=== PATIENT | male | born 1940 | race African-American/Black ===

== ENCOUNTER 2016-08-14 02:31 | Emergency (ER) | payer MEDICARE, MEDICAID ==
[~2016-08-14] VITALS: Ht 188 cm; Wt 95.3 kg
[~2016-08-14 02:31] MED LIST: ADVAIR 250-501 EACH INH; ADVAIR HFA 45-212 GM INH; ALBUTEROL; ALBUTEROL SULF8.5 GM INH; ASPIRIN EC325 MG ORAL; AZITHROMYCIN250 MG ORAL; CLOTRIMAZOLE15 GM TOPIC; FUROSEMIDE20 M1 ORAL; LEVAQUIN500 MG ORAL; LEVOFLOXACIN500 MG ORAL; MEDROL DOSEPAK4 MG ORAL; METHADONE HCL10 MG PO; MULTI-DAY VITA1 EAC1 ORAL; NAPROXEN500 M2 ORAL; NKM; NORVASC2.5 MG ORAL; OXYCODONE HCL5 M2 ORAL; POTASSIUM CHLO10 ME3 ORAL; POTASSIUM CHLO20 ME2 ORAL; PREDNISONE20 MG ORAL; PREDNISONE50 MG ORAL; PREDNISONE50 MG PO; PROAIR HFA8.5 GM INH; PROMETHAZINE-C118 M1 ORAL; SOLU-MEDRO40 MG/1 M1 IJ; SPIRIVA18 MCG INH; SYMBICORT 16010.2 G1 IH; TRAMADOL HCL50 MG ORAL; UNOBMED; VITAMIN B COMP1 EAC7 PO; ZITHROMAX250 MG ORAL
[2016-08-14 02:45] VITALS: BP 147/74
[2016-08-14] MEDS ORDERED: NKM (02:48)
[2016-08-14] MEDS ORDERED: Albuterol ud Inhalation HHN ONE (03:15)
--- NOTE | 2016-08-14 03:16 | Emergency Room Report ---
History of Present Illness General Chief Complaint: Chest Pain Source: Patient Present Illness HPI This is a 76-year-old male with history of chronic pain, COPD and cocaine abuse. He presents with chief complaint of chest pain his been ongoing for many weeks. He said he been to multiple hospital and no one can figure out why he is hurting. He is taking [place]. Denies any new drug use. Denies any fever chills denies any nausea vomiting. No coughing congestion. Nothing made it better. Nothing made it worse. Pain is 10 out of 10. Allergies: Coded Allergies: TETRACYCLINE (Verified Allergy, Unknown, 01/07/11) Patient History Past Medical History: see triage record, old chart reviewed, COPD Past Surgical History: other Pertinent Family History: none Social History: Reports: drug use, smoking Immunizations: other Reviewed Nursing Documentation: PMH: Agreed, PSxH: Agreed Nursing Documentation-PMH Hx Cardiac Problems: Yes - chf Hx Hypertension: Yes Hx Asthma: Yes Hx COPD: Yes Hx Cancer: No Hx Gastrointestinal Problems: Yes Hx Neurological Problems: Yes Hx Cerebrovascular Accident: Yes Hx Dizziness: Yes Hx Headaches: Yes Hx Weakness: Yes Hx Fatigue: Yes Review of Systems Eye: Denies: blurred vision, eye pain ENT: Denies: ear pain, nose congestion, throat swelling Respiratory: Denies: cough, shortness of breath Cardiovascular: Reports: chest pain, Denies: palpitations Gastrointestinal: Denies: abdominal pain, diarrhea, nausea, vomiting Musculoskeletal: Denies: back pain, joint pain Skin: Denies: rash Neurological: Denies: headache, numbness Endocrine: Denies: increased thirst, increased urine Hematologic/Lymphatic: Denies: easy bruising All Other Systems: negative except mentioned in HPI Physical Exam Vital Signs Date Time Temp Pulse Resp B/P Pulse Ox O2 Delivery O2 Flow Rate FiO2 08/14/16 02:42 98.1 92 17 147/74 97 Room Air vitals normal Sp02 EP Interpretation: reviewed, normal General Appearance: well appearing, no apparent distress, alert Head: normocephalic, atraumatic Eyes: bilateral eye EOMI, bilateral eye PERRL ENT: hearing grossly normal, normal pharynx Neck: full range of motion, supple, no meningismus Respiratory: lungs clear, normal breath sounds, other - Diffuse tenderness with palpation. Cardiovascular #1: regular rate, rhythm, no murmur Gastrointestinal: normal bowel sounds, non tender, no mass, no organomegaly, no bruit, non-distended Musculoskeletal: back normal, gait/station normal, normal range of motion Psychiatric: mood/affect normal Skin: warm/dry Medical Decision Making Diagnostic Impression: Primary Impression: Chest pain Qualified Codes: R07.9 - Chest pain, unspecified Additional Impressions: COPD exacerbation Anemia Qualified Codes: D64.9 - Anemia, unspecified History of cocaine abuse ER Course Patient presents with exacerbation of chronic pain. He has an opioid dependence. His been to multiple hospital for different pain complaint. He is anemic. You would need further workup as an outpatient with colonoscopy to rule out any neoplastic process. May need CT of his chest. He gets oxycodone 30 mg, #90 monthly. Last refill was getting July [address] Giovanny Wright. He is comfortable here. No evidence of rest or distress. No evidence of wheezing. We'll discharge home. Lab Results Impression labs with anemia. EKG Diagnostic Results Rate: normal Rhythm: NSR ST Segments: no acute changes Rhythm Strip Diag. Results EP Interpretation: yes Rate: 80 Rhythm: NSR, no PVC's, no ectopy Chest X-Ray Diagnostic Results EP Interpretation: Yes Findings: no consolidation, no effusion, no pneumothorax, no acute cardiopulmonary disease, other - copd Number of Views: 1 Last Vital Signs Date Time Temp Pulse Resp B/P Pulse Ox O2 Delivery O2 Flow Rate FiO2 08/14/16 02:45 98.4 89 17 147/74 99 Room Air Status: improved Disposition: HOME, SELF-CARE Condition: Stable Patient Instructions: Nonspecific Chest Pain Additional Instructions: Followup with your DrWes in 2-3 days. Return if symptom worsen. MIRYAM QUINTERO M.D. Aug 14, 2016 03:16
[2016-08-14 03:44] LABS: BASOPHILS % (AUTO) 0.8 % (0.0-2.0); EOSINOPHILS % (AUTO) 1.5 % (0.0-3.0); LYMPHOCYTES % (AUTO) 9.9 % (20.0-45.0); MEAN CORPUSCULAR HEMOGLOBIN 31.6 PG (27.0-31.0); MEAN CORPUSCULAR HGB CONC 34.4 G/DL (32.0-36.0); MEAN CORPUSCULAR VOLUME 92 FL (80-99); MEAN PLATELET VOLUME 6.4 FL (6.5-10.1); MONOCYTES % (AUTO) 5.6 % (1.0-10.0); NEUTROPHILS % (AUTO) 82.2 % (45.0-75.0); PLATELET COUNT 113 K/UL (150-450); RED BLOOD COUNT 2.52 M/UL (4.70-6.10); WHITE BLOOD COUNT 9.4 K/UL (4.8-10.8)
[2016-08-14 03:49] LABS: APPEARANCE,URINE CLEAR; KETONES,URINE NEGATIVE (NEGATIVE); LEUKOCYTE ESTERASE ,URINE NEGATIVE (NEGATIVE); NITRITE,URINE NEGATIVE (NEGATIVE); PH,URINE 8 (4.5-8.0); UROBILINOGEN,URINE NORMAL MG/DL (0.0-1.0)
[2016-08-14 03:51] LABS: PROTEIN,URINE NEGATIVE (NEGATIVE)
[2016-08-14 03:59] LABS: ANION GAP 10 (5-15); CALCIUM 7.8 mg/dL (8.6-10.2); CARBON DIOXIDE 31 mEQ/L (20-30); CHLORIDE 92 mEQ/L (98-107); CREATININE 0.7 mg/dL (0.7-1.2); HEMOLYSIS 5; POTASSIUM 3.3 mEQ/L (3.4-4.9); SODIUM 133 mEQ/L (135-145)
[2016-08-14 04:04] LABS: RBC,URINE 0 /HPF (0 - 0); SQUAMOUS EPITHELIAL CELL,UR FEW /LPF (NONE/OCC); WBC,URINE 0 /HPF (0 - 0)
[2016-08-14 04:35] LABS: TROPONIN I < 0.30 ng/mL (<=0.30)
[2016-08-14 04:57] VITALS: BP 124/57
--- NOTE | 2016-08-14 13:48 | Diagnostic Imaging Report ---
Indication: SOB, chest pain Technique: One view of the chest Comparison: 03/18/2016 Findings: Lungs and pleural spaces are clear. Heart size is normal. No significant change Impression: No acute process
--- NOTE | 2016-08-30 13:47 | Cardiology Report ---
APPROVED REPORT EKG Measurement Heart [id number] Normal sinus rhythm Septal infarct, age undetermined Abnormal ECG
== END 2016-08-14 04:57 | disposition home or self-care (01) ==
LOC: EMR 02:40
DX: R07.9 Chest pain, unspecified (principal); J44.1 Chronic obstructive pulmonary disease with (acute) exacerbation; D64.9 Anemia, unspecified; F14.10 Cocaine abuse, uncomplicated
CPT/HCPCS: 36415; 71010; 80048; 80300; 81001; 83880; 84484; 85025; 93005; 94640; 94664; 99283

== ENCOUNTER 2016-11-23 19:04 | Inpatient (IN) | payer MEDICARE, MEDICAID ==
[~2016-11-23] VITALS: Ht 182.9 cm; Wt 81.6 kg
--- NOTE | 2016-11-23 18:56 | Emergency Room Report ---
History of Present Illness General Source: Patient, Medical Record, EMS Present Illness HPI 76YOM BIBEMS from home with progressive chest pain, SOB, and "congestion I cant cough up." denies abd pain, nausea/vomiting, diarrhea, fever/chills. Per EMS, desat to 90-92% on RA at home. Placed on supplemental O2 NC with improvement to 100%. EMR indicates multiple visits/admissions for chest pain/SOB over the years. History of cocaine abuse, narcotic dependence, ?CHF,COPD not on home O2 Allergies: Coded Allergies: TETRACYCLINE (Verified Allergy, Unknown, 01/07/11) Patient History Past Medical History: COPD, other - see HPI Past Surgical History: none Pertinent Family History: none Social History: Reports: drug use, smoking Immunizations: UTD Reviewed Nursing Documentation: PMH: Agreed, PSxH: Agreed Review of Systems All Other Systems: negative except mentioned in HPI Physical Exam Sp02 EP Interpretation: reviewed, normal General Appearance: normal inspection, well appearing, no apparent distress, alert, GCS 15, non-toxic Head: normocephalic, atraumatic Eyes: bilateral eye EOMI, bilateral eye PERRL ENT: normal ENT inspection, hearing grossly normal, normal voice Neck: normal inspection, full range of motion, supple, no bony tend Respiratory: normal inspection, lungs clear, normal breath sounds, no respiratory distress, no retraction, no accessory muscle use, no wheezing, speaking full sentences, wheezing Cardiovascular #1: regular rate, rhythm, no edema Gastrointestinal: normal inspection, normal bowel sounds, non tender, soft, no guarding, no hernia Genitourinary: no CVA tenderness Musculoskeletal: normal inspection, back normal, normal range of motion, Heather' s Sign negative Neurologic: normal inspection, alert, oriented x3, responsive, general assistant III-XII nml as tested, motor strength/tone normal, speech normal Psychiatric: normal inspection, judgement/insight normal, mood/affect normal Skin: normal inspection, normal color, no rash Medical Decision Making Medicare Attestation I Christina De MD hereby attest that the medical record entry for date of service, 06/17/16 accurately reflects signatures/notations that I made in my capacity as MD when I treated/diagnosed the above listed Medicare beneficiary. I attest that this information is true, accurate and complete to the best of my knowledge. I understand that any falsification, omission, or concealment of material fact may subject me to administrative, civil, or criminal liability. This patient warrants hospital admission for extreme of age and has a condition that cannot be treated as outpatient. Diagnostic Impression: Primary Impression: SOB (shortness of breath) Additional Impressions: COPD with acute exacerbation Hypoxia ER Course 76YOM with SOB for 1 week history of COPD VSS. Afebrile Wheezing here ?mild COPD exacerbation ECG shows new PACs not seen on previous ECG. Troponin 0. CXR does not show PNA No leuks. H&H stable Improved with duonebs, IV azithro Blood Cx pending Endorsed to Dr Ortega for tele admission at 8pm EKG Diagnostic Results Rate: normal, other - PACs Rhythm: NSR ST Segments: no acute changes Rhythm Strip Diag. Results EP Interpretation: yes Rate: 88 Rhythm: NSR Chest X-Ray Diagnostic Results EP Interpretation: Yes Findings: no consolidation, no effusion, no pneumothorax, no acute cardiopulmonary disease Number of Views: 1 Status: improved Disposition: ADMITTED INPATIENT Condition: Serious CHRISTINA DE M.D. November 23, 2016 18:55
[2016-11-23 18:57] VITALS: BP 145/91
[~2016-11-23 19:04] MED LIST changes: +ALBUTEROL2.5 MG/3 M INH; +ATIVAN0.5 MG ORAL; +Albuterol ud Inhalation HHN ONE; +Albuterol ud Inhalation ONE; +Azithromycin 500 MG in D5W 275 ML IVPB STA; +Azithromycin Inj IV ONE; +Ipratropium 0.02% Inh Soln 2.5ml UD HHN ONE; +Ipratropium 0.02% Inh Soln 2.5ml UD ONE
[2016-11-23 19:10] VITALS: BP 129/95
[2016-11-23 19:50] LABS: EOSINOPHILS % (AUTO) 5.1 % (0.0-3.0); LYMPHOCYTES % (AUTO) 31.6 % (20.0-45.0); MEAN CORPUSCULAR HEMOGLOBIN 29.9 PG (27.0-31.0); MEAN CORPUSCULAR HGB CONC 32.5 G/DL (32.0-36.0); MEAN CORPUSCULAR VOLUME 92 FL (80-99); MEAN PLATELET VOLUME 6.2 FL (6.5-10.1); MONOCYTES % (AUTO) 9.7 % (1.0-10.0); NEUTROPHILS % (AUTO) 52.6 % (45.0-75.0); PLATELET COUNT 168 K/UL (150-450); RED BLOOD COUNT 4.86 M/UL (4.70-6.10); WHITE BLOOD COUNT 7.4 K/UL (4.8-10.8)
[2016-11-23 20:00] VITALS: BP 133/69
[2016-11-23 20:14] LABS: TROPONIN I < 0.30 ng/mL (<=0.30)
[2016-11-23 20:18] LABS: ALANINE AMINOTRANSFERASE 21 U/L (3-41); ALBUMIN/GLOBULIN RATIO 1.3 (1.0-2.7); ANION GAP 12 (5-15); ASPARTATE AMINO TRANSFERASE 34 U/L (5-40); CALCIUM 9.2 mg/dL (8.6-10.2); CARBON DIOXIDE 35 mEQ/L (20-30); CHLORIDE 98 mEQ/L (98-107); CREATININE 0.9 mg/dL (0.7-1.2); HEMOLYSIS 5; SODIUM 145 mEQ/L (135-145); TOTAL PROTEIN 7.2 g/dL (6.6-8.7)
[2016-11-23 20:29] LABS: CKMB 1.8 ng/mL (< 6.7)
[2016-11-23 22:00] VITALS: BP 142/84
[2016-11-23] MEDS ORDERED: Morphine Sulfate 2mg/ml Inj IVP PRN (22:15)
[2016-11-23] MEDS ORDERED: Nitroglycerin Subl 0.4mg tab (Bottle Of 25) SL PRN (22:15)
[2016-11-23] MEDS ORDERED: LORazepam Inj 2mg/ml 1ml IV PRN (22:15)
[2016-11-23] MEDS ORDERED: Ketorolac 30mg Inj IV PRN (22:15)
[2016-11-23] MEDS ORDERED: DuoNeb 0.5-3(2.5)mg/3ml neb HHN PRN (22:15)
[2016-11-23] MEDS ORDERED: Promethazine/Codeine 5ml UD ORAL PRN (22:15)
[2016-11-24] VITALS: BP 122/60
[2016-11-24] MEDS: Solu-MEDROL 125mg Inj IV SCH ×4 (00:12→20:29)
[2016-11-24 04:00] VITALS: BP 156/88
[2016-11-24] MEDS: Piperacillin/Tazobactam 2.25 GM in D5W 55 ML IV SCH ×3 (07:12→22:07)
[2016-11-24 08:00] VITALS: BP 161/84
[2016-11-24] MEDS: Theophylline ER 100mg ORAL SCH ×2 (08:57→20:28)
[2016-11-24] MEDS: Heparin 5000 units/ml inj SUBQ SCH ×2 (09:07→20:33)
[2016-11-24 12:00] VITALS: BP 140/91
[2016-11-24] MEDS ORDERED: Milk of Magnesia 30ml Ud ORAL PRN (13:45)
[2016-11-24] MEDS: Milk of Magnesia 30ml Ud ORAL PRN ×2 (14:12→18:35)
[2016-11-24] MEDS: DuoNeb 0.5-3(2.5)mg/3ml neb HHN SCH ×4 (15:00→22:34)
[2016-11-24 16:00] VITALS: BP 162/78
--- NOTE | 2016-11-24 16:17 | History and Physical ---
History of Present Illness General Date patient seen: November 24, 2016 Reason for Hospitalization: Upper Respiratory Illness Present Illness HPI 76 year old male with hx of COPD, ETOH and other street drug abuse presented from home with CC of , SOB, and "congestion I cant cough up." denies fever/ chills. Per EMS, desaturating to 90-92% on RA at home. Placed on supplemental O2 NC with improvement to 100%. Pt admitted for exacerbation of COPD Allergies: Coded Allergies: TETRACYCLINE (Verified Allergy, Unknown, 01/07/11) Medication History Scheduled Amlodipine Besylate (Norvasc), 2.5 MG ORAL DAILY Budesonide/Formoterol Fumarate (Symbicort 160-4.5 Mcg Inhaler), 1 PUFF IH EVERY 12 HOURS Fluticasone/Salmeterol (Advair 250-50 Diskus), 1 PUFF INH BID, (Reported) Lorazepam* (Ativan*), Unknown Dose ORAL THREE TIMES A DAY, (Reported) Scheduled PRN Albuterol Sulfate* (Albuterol Sulfate Mdi*), 2 PUFF INH Q4H PRN for For Cough Albuterol Sulfate* (Albuterol Sulfate Hhn*), 3 ML INH Q4H PRN for Shortness of Breath, (Reported) Oxycodone Hcl* (Oxycodone Hcl*), 30 MG ORAL Q4H PRN for For Pain, (Reported) Patient History Healthcare decision maker Resuscitation status Full Code Advanced Directive on File Past Medical/Surgical History Past Medical/Surgical History: (1) History of CVA (cerebrovascular accident) (2) Narcotic dependence (3) Poor compliance (4) History of cocaine abuse (5) Peripheral neuropathy Review of Systems All Other Systems: negative except mentioned in HPI Physical Exam General Appearance: WD/WN Lines, tubes and drains: peripheral HEENT: normocephalic, atraumatic Neck: non-tender, normal alignment Respiratory/Chest: chest wall non-tender, lungs clear Breasts: no masses Cardiovascular/Chest: normal peripheral pulses, normal rate Abdomen: normal bowel sounds, non tender Genitourinary/Rectal: normal genital exam Extremities: normal range of motion Skin Exam: normal pigmentation Neurologic: communications operator II-XII grossly normal Last 24 Hour Vital Signs Date Time Temp Pulse Resp B/P Pulse Ox O2 Delivery O2 Flow Rate FiO2 11/24/16 16:04 88 17 98 Nasal Cannula 2.0 28 11/24/16 15:59 99 14 97 Nasal Cannula 2.0 28 11/24/16 12:00 97.2 98 20 140/91 94 Room Air 11/24/16 09:14 99 161/84 11/24/16 08:03 99 13 98 Nasal Cannula 2.0 28 11/24/16 08:00 97.5 71 19 161/84 99 Room Air 11/24/16 08:00 72 11/24/16 04:00 80 11/24/16 04:00 97.0 76 16 156/88 98 Nasal Cannula 2.0 11/24/16 00:00 71 11/24/16 00:00 97.5 79 18 122/60 95 Nasal Cannula 2.0 11/23/16 22:00 97.9 85 18 142/84 92 Nasal Cannula 2.0 11/23/16 21:39 84 18 113/59 98 Nasal Cannula 2.0 84 11/23/16 20:00 93 21 133/69 95 Nasal Cannula 2.0 11/23/16 19:15 92 18 98 Nasal Cannula 2.0 28 11/23/16 19:10 91 25 129/95 100 Nasal Cannula 2.0 11/23/16 19:00 98 14 Nasal Cannula 2.0 28 11/23/16 19:00 98 14 94 Nasal Cannula 2.0 28 11/23/16 18:57 96 20 Nasal Cannula 2.0 11/23/16 18:57 97.1 20 145/91 93 Nasal Cannula 2.0 11/23/16 18:52 96 20 145/91 93 Nasal Cannula 2.0 Intake and Output 11/23/16 11/24/16 19:00 07:00 Intake Total 120 ml Balance 120 ml Intake Oral 120 ml Laboratory Tests Test 11/23/16 19:30 11/24/16 09:00 White Blood Count 7.4 K/UL (4.8-10.8) Red Blood Count 4.86 M/UL (4.70-6.10) Hemoglobin 14.5 G/DL (14.2-18.0) Hematocrit 44.7 % (42.0-52.0) Mean Corpuscular Volume 92 FL (80-99) Mean Corpuscular Hemoglobin 29.9 PG (27.0-31.0) Mean Corpuscular Hemoglobin Concent 32.5 G/DL (32.0-36.0) Red Cell Distribution Width 15.0 % (11.6-14.8) H Platelet Count 168 K/UL (150-450) Mean Platelet Volume 6.2 FL (6.5-10.1) L Neutrophils (%) (Auto) 52.6 % (45.0-75.0) Lymphocytes (%) (Auto) 31.6 % (20.0-45.0) Monocytes (%) (Auto) 9.7 % (1.0-10.0) Eosinophils (%) (Auto) 5.1 % (0.0-3.0) H Basophils (%) (Auto) 1.0 % (0.0-2.0) Sodium Level 145 mEQ/L (135-145) Potassium Level 4.0 mEQ/L (3.4-4.9) Chloride Level 98 mEQ/L (98-107) Carbon Dioxide Level 35 mEQ/L (20-30) H Anion Gap 12 (5-15) Blood Urea Nitrogen 13 mg/dL (7-23) Creatinine 0.9 mg/dL (0.7-1.2) Estimat Glomerular Filtration Rate mL/min (>60) Glucose Level 82 mg/dL (74-106) Calcium Level 9.2 mg/dL (8.6-10.2) Total Bilirubin 0.6 mg/dL (0.0-1.2) Aspartate Amino Transf (AST/SGOT) 34 U/L (5-40) Alanine Aminotransferase (ALT/SGPT) 21 U/L (3-41) Alkaline Phosphatase 46 U/L (40-129) Total Creatine Kinase 47 U/L (38-174) Creatine Kinase MB 1.8 ng/mL (< 6.7) Creatine Kinase MB Relative Index 3.8 Troponin I < 0.30 ng/mL (<=0.30) Pro-B-Type Natriuretic Peptide 57 pg/mL (0-450) Total Protein 7.2 g/dL (6.6-8.7) Albumin 4.1 g/dL (3.5-5.2) Globulin 3.1 g/dL Albumin/Globulin Ratio 1.3 (1.0-2.7) Urine Opiates Screen Negative (NEGATIVE) Urine Barbiturates Screen Negative (NEGATIVE) Phencyclidine (PCP) Screen Negative (NEGATIVE) Urine Amphetamines Screen Negative (NEGATIVE) Urine Benzodiazepines Screen Positive (NEGATIVE) H Urine Cocaine Screen Positive (NEGATIVE) H Urine Marijuana (THC) Screen Positive (NEGATIVE) H Height (Feet): 6 Height (Inches): 0.00 Weight (Pounds): 180 Medications Current Medications Medications (Trade) Dose Ordered Sig/[place]guila Route PRN Reason Start Time Stop Time Status Last Admin Dose Admin Albuterol/ Ipratropium (DuoNeb 0.5-3(2.5)mg/3ml) 3 ml Q4HRT HHN 11/24/16 13:37 11/29/16 13:36 11/24/16 15:56 Amlodipine Besylate (Norvasc) 2.5 mg DAILY ORAL 11/24/16 09:00 12/24/16 08:59 11/24/16 09:14 Dextrose (Dextrose 50%) STAT PRN IV Hypoglycemia 11/23/16 22:15 12/23/16 22:14 Heparin Sodium (Porcine) (Heparin 5000 units/ml) 5,000 units EVERY 12 HOURS SUBQ 11/24/16 09:00 12/24/16 08:59 11/24/16 09:07 Ketorolac Tromethamine (Toradol 30mg) 30 mg EVERY 8 HOURS PRN IV moderate pain 4-6 11/23/16 22:15 11/28/16 22:14 Lorazepam (Ativan 2mg/ml 1ml) 0.5 mg Q4H PRN IV For Anxiety 11/23/16 22:15 11/30/16 22:14 Magnesium Hydroxide (Mom) 30 ml HSPRN PRN ORAL Constipation 11/24/16 12:45 12/24/16 12:44 11/24/16 14:12 Magnesium Hydroxide (Mom) 30 ml Q4H PRN ORAL Constipation 11/24/16 13:45 12/24/16 13:44 Methylprednisolone Sodium Succinate (Solu-MEDROL) 60 mg EVERY 12 HOURS IV 11/24/16 21:00 12/24/16 20:59 UNV Morphine Sulfate (Morphine Sulfate) 2 mg Q4H PRN IVP severe pain 7-10 11/23/16 22:15 11/30/16 22:14 Nitroglycerin (Ntg) 0.4 mg Q5M X 3 DOSES PRN SL Prn Chest Pain 11/23/16 22:15 12/23/16 22:14 Ondansetron HCl (Zofran) 4 mg Q6H PRN IVP Nausea & Vomiting 11/23/16 22:15 12/23/16 22:14 Oxycodone HCl (Roxicodone) 30 mg Q4H PRN ORAL For Pain 11/23/16 22:15 11/30/16 22:14 Piperacillin Sod/ Tazobactam Sod/ Dextrose (Zosyn/D5W) 55 ml @ 110 mls/hr EVERY 8 HOURS IV 11/24/16 06:00 11/29/16 05:59 11/24/16 14:03 Promethazine HCl/ Codeine (Phenergan with Codeine) 5 ml Q6H PRN ORAL cough 11/23/16 22:15 12/23/16 22:14 Temazepam (Restoril) 15 mg HSPRN PRN ORAL Insomnia 11/23/16 22:15 11/30/16 22:14 Theophylline 100 mg 100 mg EVERY 12 HOURS ORAL 11/24/16 09:00 12/24/16 08:59 11/24/16 08:57 Assessment/Plan Problem List: (1) Acute respiratory failure ICD Codes: J96.00 - Acute respiratory failure, unsp w hypoxia or hypercapnia SNOMED: 58643919 Qualifiers: Qualified Codes: J96.02 - Acute respiratory failure with hypercapnia (2) COPD with acute exacerbation ICD Codes: J44.1 - Chronic obstructive pulmonary disease with acute exacerbation SNOMED: 740871133 (3) Peripheral neuropathy ICD Codes: G62.9 - Polyneuropathy, unspecified SNOMED: 15893343 (4) History of cocaine abuse ICD Codes: F14.10 - Cocaine abuse, uncomplicated SNOMED: 047240404 (5) Hypertension ICD Codes: I10 - Hypertension SNOMED: 15879173 Assessment/Plan Respiratory treatment IV steroids check sputum IV abx check sputum 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
[2016-11-24 20:00] VITALS: BP 147/99
[2016-11-24] MEDS: oxyCODONE 5mg IR tab ORAL PRN (20:34)
[2016-11-25] VITALS: BP 157/99
[2016-11-25] MEDS: DuoNeb 0.5-3(2.5)mg/3ml neb HHN SCH ×5 (02:56→20:03)
[2016-11-25 04:00] VITALS: BP 129/69
[2016-11-25] MEDS: Piperacillin/Tazobactam 2.25 GM in D5W 55 ML IV SCH ×3 (06:29→22:04)
[2016-11-25 08:00] VITALS: BP 159/75
[2016-11-25] MEDS: Theophylline ER 100mg ORAL SCH ×2 (08:43→21:04)
[2016-11-25] MEDS: Solu-MEDROL 125mg Inj IV SCH (08:43)
[2016-11-25] MEDS: Heparin 5000 units/ml inj SUBQ SCH ×2 (08:50→21:06)
[2016-11-25] MEDS: oxyCODONE 5mg IR tab ORAL PRN (09:58)
[2016-11-25 12:00] VITALS: BP 144/72
--- NOTE | 2016-11-25 15:29 | Pulmonology Progress Note ---
Assessment/Plan Problems: (1) Acute respiratory failure (2) COPD with acute exacerbation (3) Peripheral neuropathy (4) History of cocaine abuse (5) Hypertension Assessment/Plan improving respiratory treatment Iv steroids check sputum laxatives Subjective ROS Limited/Unobtainable: No Constitutional: Reports: no symptoms HEENT: Repors: no symptoms Respiratory: Reports: no symptoms Allergies: Coded Allergies: TETRACYCLINE (Verified Allergy, Unknown, 01/07/11) Objective Last 24 Hour Vital Signs Date Time Temp Pulse Resp B/P Pulse Ox O2 Delivery O2 Flow Rate FiO2 11/25/16 12:39 87 18 98 Nasal Cannula 2.0 28 11/25/16 12:31 89 14 96 Nasal Cannula 2.0 28 11/25/16 12:00 97.9 88 20 144/72 95 Room Air 11/25/16 08:44 128 160/75 11/25/16 08:00 98.0 99 20 159/75 99 Nasal Cannula 2.0 11/25/16 07:41 86 18 98 Nasal Cannula 2.0 28 11/25/16 07:32 87 14 95 Nasal Cannula 2.0 28 11/25/16 04:00 98.2 94 20 129/69 99 Nasal Cannula 2.0 28 11/25/16 03:10 89 18 98 Nasal Cannula 2.0 28 11/25/16 02:56 94 18 93 Room Air 11/25/16 00:00 98.2 94 18 157/99 98 Nasal Cannula 2.0 28 11/24/16 22:44 88 18 98 Nasal Cannula 2.0 28 11/24/16 22:43 28 11/24/16 22:35 92 18 93 Room Air 11/24/16 20:00 98.2 89 20 147/99 98 Nasal Cannula 3.0 32 11/24/16 20:00 90 11/24/16 19:01 90 18 98 Nasal Cannula 3.0 32 11/24/16 18:55 32 11/24/16 18:49 91 16 92 Room Air 21 11/24/16 16:17 2.0 28 11/24/16 16:04 88 17 98 Nasal Cannula 2.0 28 11/24/16 16:00 99 19 162/78 95 Room Air 11/24/16 16:00 96 11/24/16 15:59 99 14 97 Nasal Cannula 2.0 28 Intake and Output 11/24/16 11/25/16 19:00 07:00 Intake Total 55 ml 165 ml Output Total 650 ml Balance 55 ml -485 ml IV Total 55 ml 165 ml Output Urine Total 650 ml # Voids 2 General Appearance: WD/WN HEENT: normocephalic, atraumatic Respiratory/Chest: chest wall non-tender, normal breath sounds Cardiovascular: normal peripheral pulses, normal rate Abdomen: normal bowel sounds, no organomegaly Extremities: no clubbing Skin: no rash 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 Lymphatic: no neck adenopathy Musculoskeletal: normal muscle bulk Microbiology Date/Time Source Procedure Growth Status 11/23/16 19:10 Blood Blood Culture - Preliminary Resulted 11/23/16 19:00 Blood Blood Culture - Preliminary Resulted Current Medications Medications (Trade) Dose Ordered Sig/[place] Route PRN Reason Start Time Stop Time Status Last Admin Dose Admin Albuterol/ Ipratropium (DuoNeb 0.5-3(2.5)mg/3ml) 3 ml Q4HRT HHN 11/24/16 13:37 11/29/16 13:36 11/25/16 15:19 Amlodipine Besylate (Norvasc) 2.5 mg DAILY ORAL 11/24/16 09:00 12/24/16 08:59 11/25/16 08:44 Dextrose (Dextrose 50%) STAT PRN IV Hypoglycemia 11/23/16 22:15 12/23/16 22:14 Docusate Sodium (Colace) 100 mg THREE TIMES A DAY ORAL 11/25/16 18:00 12/25/16 17:59 Heparin Sodium (Porcine) (Heparin 5000 units/ml) 5,000 units EVERY 12 HOURS SUBQ 11/24/16 09:00 12/24/16 08:59 11/25/16 08:50 Ketorolac Tromethamine (Toradol 30mg) 30 mg EVERY 8 HOURS PRN IV moderate pain 4-6 11/23/16 22:15 11/28/16 22:14 Lactulose (Cephulac) 30 gm THREE TIMES A DAY ORAL 11/25/16 18:00 12/25/16 17:59 Lorazepam (Ativan 2mg/ml 1ml) 0.5 mg Q4H PRN IV For Anxiety 11/23/16 22:15 11/30/16 22:14 Magnesium Hydroxide (Mom) 30 ml HSPRN PRN ORAL Constipation 11/24/16 12:45 12/24/16 12:44 11/24/16 18:35 Magnesium Hydroxide (Mom) 30 ml Q4H PRN ORAL Constipation 11/24/16 13:45 12/24/16 13:44 11/25/16 09:57 Methylprednisolone Sodium Succinate (Solu-MEDROL) 60 mg EVERY 12 HOURS IV 11/24/16 21:00 12/24/16 20:59 11/25/16 08:43 Mineral Oil (Fleet's Mineral Oil Enema) 133 ml EVERY OTHER DAY RECTAL 11/27/16 09:00 12/27/16 08:59 Morphine Sulfate (Morphine Sulfate) 2 mg Q4H PRN IVP severe pain 7-10 11/23/16 22:15 11/30/16 22:14 Nitroglycerin (Ntg) 0.4 mg Q5M X 3 DOSES PRN SL Prn Chest Pain 11/23/16 22:15 12/23/16 22:14 Ondansetron HCl (Zofran) 4 mg Q6H PRN IVP Nausea & Vomiting 11/23/16 22:15 12/23/16 22:14 Oxycodone HCl (Roxicodone) 30 mg Q4H PRN ORAL For Pain 11/23/16 22:15 11/30/16 22:14 11/25/16 09:58 Piperacillin Sod/ Tazobactam Sod/ Dextrose (Zosyn/D5W) 55 ml @ 110 mls/hr EVERY 8 HOURS IV 11/24/16 06:00 11/29/16 05:59 11/25/16 13:30 Polyethylene Glycol (Miralax) 17 gm BEDTIME ORAL 11/25/16 21:00 12/25/16 20:59 Promethazine HCl/ Codeine (Phenergan with Codeine) 5 ml Q6H PRN ORAL cough 11/23/16 22:15 12/23/16 22:14 Sennosides (Senokot) 8.6 mg DAILY ORAL 11/26/16 09:00 12/26/16 08:59 Temazepam (Restoril) 15 mg HSPRN PRN ORAL Insomnia 11/23/16 22:15 11/30/16 22:14 Theophylline 100 mg 100 mg EVERY 12 HOURS ORAL 11/24/16 09:00 12/24/16 08:59 11/25/16 08:43 KITTY HERNANDEZ November 25, 2016 15:29
[2016-11-25 16:00] VITALS: BP 141/77
[2016-11-25] MEDS: Docusate 100mg cap ORAL SCH (17:16)
[2016-11-25] MEDS: Lactulose 20gm/30ml UDC ORAL SCH (17:16)
[2016-11-25 20:46] VITALS: BP 146/86
[2016-11-25] MEDS: Miralax 17gm pkt ORAL SCH (21:05)
[2016-11-26] MEDS: DuoNeb 0.5-3(2.5)mg/3ml neb HHN SCH ×7 (00:21→23:50)
[2016-11-26 00:24] VITALS: BP 126/74
--- NOTE | 2016-11-26 00:49 | Consultation ---
DATE OF CONSULTATION: HISTORY OF PRESENT ILLNESS: The patient is a 76-year-old male with a history of cocaine abuse and alcohol abuse, brought in by paramedics for chest pain and shortness of breath. During the evaluation, the patient was denying any depressive, manic, or psychotic symptoms. However, at some point, he stated that he has depression. He was reluctant to see a psychiatrist. He denied any suicidal or homicidal ideations. He denies using any cocaine or alcohol currently. The patient's urine toxicology is positive for marijuana, cocaine, and benzodiazepine. Of note, during the evaluation, patient endorses . PAST PSYCHIATRIC HISTORY: He has a history of depression and anxiety in the past. Denies any psychiatric hospitalizations. Denies any suicide attempt in the past. PAST MEDICAL HISTORY: Significant for CVA, peripheral neuropathy/COPD. ALLERGIES: Tetracycline. SUBSTANCE ABUSE HISTORY: Significant for opiates, benzodiazepines, and cocaine dependence. The patient also has a history of poor compliance. SOCIAL HISTORY: The patient is homeless and is on SSRI's. MENTAL STATUS EXAMINATION: The patient is alert and oriented x3. Mood is anxious and irritable. Affect is constricted. Congruent mood. Thought process is concrete. Thought content, no suicidal or homicidal ideation. ASSESSMENT: [place] I Polysubstance dependence. Mood disorder, not otherwise specified. [place] II Deferred. [place] III As above. [place] IV Low. [place] V 40 PLAN: 1. We will start patient on Klonopin 1 mg by mouth at bedtime. 2. The patient will benefit from a low dose of selective serotonin reuptake inhibitor. 3. The patient does not meet the criteria of hold 5150 or psychiatric hospitalization. 4. We will continue to follow and readjust his medications. Jose Ray JOB#: [id number] CC:
[2016-11-26 04:13] VITALS: BP 137/90
[2016-11-26] MEDS: Piperacillin/Tazobactam 2.25 GM in D5W 55 ML IV SCH ×3 (05:39→22:55)
[2016-11-26 07:50] LABS: BASOPHILS % (AUTO) 0.3 % (0.0-2.0); LYMPHOCYTES % (AUTO) 16.7 % (20.0-45.0); MEAN CORPUSCULAR HEMOGLOBIN 28.5 PG (27.0-31.0); MEAN CORPUSCULAR HGB CONC 31.1 G/DL (32.0-36.0); MEAN CORPUSCULAR VOLUME 92 FL (80-99); MEAN PLATELET VOLUME 7.7 FL (6.5-10.1); MONOCYTES % (AUTO) 10.5 % (1.0-10.0); NEUTROPHILS % (AUTO) 72.6 % (45.0-75.0); PLATELET COUNT 152 K/UL (150-450); RED CELL DISTRIBUTION WIDTH 15.7 % (11.6-14.8); WHITE BLOOD COUNT 7.7 K/UL (4.8-10.8)
[2016-11-26 08:00] VITALS: BP 125/69
[2016-11-26 08:07] LABS: ALANINE AMINOTRANSFERASE 10 U/L (3-41); ALBUMIN/GLOBULIN RATIO 1.5 (1.0-2.7); ANION GAP 10 (5-15); ASPARTATE AMINO TRANSFERASE 13 U/L (5-40); CALCIUM 8.2 mg/dL (8.6-10.2); CARBON DIOXIDE 32 mEQ/L (20-30); CHLORIDE 99 mEQ/L (98-107); CREATININE 0.8 mg/dL (0.7-1.2); HEMOLYSIS 5; SODIUM 141 mEQ/L (135-145); TOTAL PROTEIN 5.8 g/dL (6.6-8.7)
[2016-11-26] MEDS: Lactulose 20gm/30ml UDC ORAL SCH ×3 (08:40→17:49)
[2016-11-26] MEDS: Solu-MEDROL 125mg Inj IV SCH (08:40)
[2016-11-26] MEDS: Docusate 100mg cap ORAL SCH ×3 (08:41→17:50)
[2016-11-26] MEDS: Theophylline ER 100mg ORAL SCH ×2 (08:41→21:34)
[2016-11-26] MEDS: Heparin 5000 units/ml inj SUBQ SCH ×2 (08:42→21:37)
[2016-11-26] MEDS ORDERED: oxyCODONE 15mg IR tab ORAL PRN (09:30)
[2016-11-26 11:56] VITALS: BP 139/79
--- NOTE | 2016-11-26 12:33 | Consultation ---
Consult Note Consult Note ID Dic# [id number] YONATAN KIRK M.D. November 26, 2016 12:33
--- NOTE | 2016-11-26 13:10 | Pulmonology Progress Note ---
Assessment/Plan Problems: (1) Acute respiratory failure (2) COPD with acute exacerbation (3) Peripheral neuropathy (4) History of cocaine abuse (5) Hypertension Assessment/Plan improving respiratory treatment taper Iv steroids check sputum, pending laxatives refused to go to half-way, wants to go back to his car Subjective ROS Limited/Unobtainable: No Constitutional: Reports: no symptoms Allergies: Coded Allergies: TETRACYCLINE (Verified Allergy, Unknown, 01/07/11) Objective Last 24 Hour Vital Signs Date Time Temp Pulse Resp B/P Pulse Ox O2 Delivery O2 Flow Rate FiO2 11/26/16 13:00 83 18 96 Nasal Cannula 2.0 28 11/26/16 11:56 96.8 79 20 139/79 93 Room Air 11/26/16 10:14 83 20 98 Nasal Cannula 2.0 28 11/26/16 10:05 81 18 95 Nasal Cannula 2.0 28 11/26/16 08:41 79 137/90 11/26/16 08:00 80 11/26/16 08:00 97.5 81 21 125/69 94 Room Air 11/26/16 07:18 Nasal Cannula 2.0 28 11/26/16 07:18 95 Nasal Cannula 2.0 28 11/26/16 07:18 Nasal Cannula 11/26/16 07:18 Nasal Cannula 2.0 28 11/26/16 04:13 98.6 79 21 137/90 96 Room Air 11/26/16 04:00 77 11/26/16 03:17 90 20 98 Nasal Cannula 2.0 28 11/26/16 03:16 84 16 96 Nasal Cannula 2.0 28 11/26/16 00:24 98.5 84 21 126/74 98 Room Air 11/26/16 00:00 77 11/25/16 23:45 84 16 98 Nasal Cannula 2.0 28 11/25/16 23:30 80 16 95 Nasal Cannula 2.0 28 11/25/16 22:20 89 11/25/16 20:46 97.3 94 20 146/86 95 Room Air 11/25/16 19:40 86 16 97 Nasal Cannula 2.0 28 11/25/16 19:30 Nasal Cannula 2.0 28 11/25/16 19:30 82 16 Nasal Cannula 2.0 28 11/25/16 19:30 82 16 94 Nasal Cannula 2.0 28 11/25/16 19:30 94 Nasal Cannula 2.0 28 11/25/16 16:00 97.3 79 20 141/77 96 Room Air 11/25/16 15:27 88 14 97 Nasal Cannula 2.0 28 11/25/16 15:20 85 14 95 Nasal Cannula 2.0 28 Intake and Output 11/25/16 11/26/16 19:00 07:00 Intake Total 110 ml 110 ml Output Total 500 ml Balance -390 ml 110 ml IV Total 110 ml 110 ml Output Urine Total 500 ml # Voids 3 2 General Appearance: WD/WN HEENT: normocephalic, atraumatic Respiratory/Chest: chest wall non-tender, lungs clear Cardiovascular: normal peripheral pulses, normal rate Abdomen: normal bowel sounds, soft, non tender Genitourinary: normal external genitalia Extremities: no cyanosis Skin: no rash Neurologic/Psychiatric: endodontics dentist II-XII grossly normal, no motor/sensory deficits Lymphatic: no neck adenopathy Microbiology Date/Time Source Procedure Growth Status 11/23/16 19:10 Blood Blood Culture - Preliminary Staphylococcus Sp Coag Neg Resulted 11/23/16 19:00 Blood Blood Culture - Preliminary Staphylococcus Sp Coag Neg Resulted 11/25/16 18:30 Sputum Gram Stain - Final Resulted 11/25/16 18:30 Sputum Sputum Culture Pending Resulted Laboratory Tests 11/26/16 06:45: White Blood Count 7.7, Red Blood Count 4.10L, Hemoglobin 11.7L, Hematocrit 37.6L , Mean Corpuscular Volume 92, Mean Corpuscular Hemoglobin 28.5, Mean Corpuscular Hemoglobin Concent 31.1L, Red Cell Distribution Width 15.7H, Platelet Count 152, Mean Platelet Volume 7.7, Neutrophils (%) (Auto) 72.6, Lymphocytes (%) (Auto) 16.7L, Monocytes (%) (Auto) 10.5H, Eosinophils (%) (Auto ) 0.0, Basophils (%) (Auto) 0.3, Sodium Level 141, Potassium Level 3.0L, Chloride Level 99, Carbon Dioxide Level 32H, Anion Gap 10, Blood Urea Nitrogen 13, Creatinine 0.8, Estimat Glomerular Filtration Rate , Glucose Level 108H, Calcium Level 8.2L, Total Bilirubin 0.2, Aspartate Amino Transf (AST/SGOT) 13, Alanine Aminotransferase (ALT/SGPT) 10, Alkaline Phosphatase 29L, Pro-B-Type Natriuretic Peptide 387, Total Protein 5.8L, Albumin 3.5, Globulin 2.3, Albumin/ Globulin Ratio 1.5 Current Medications Medications (Trade) Dose Ordered Sig/Aguila Route PRN Reason Start Time Stop Time Status Last Admin Dose Admin Albuterol/ Ipratropium (DuoNeb 0.5-3(2.5)mg/3ml) 3 ml Q4HRT HHN 11/24/16 13:37 11/29/16 13:36 11/26/16 12:59 Amlodipine Besylate (Norvasc) 2.5 mg DAILY ORAL 11/24/16 09:00 12/24/16 08:59 11/26/16 08:41 Azithromycin (Zithromax) 500 mg DAILY ORAL 11/26/16 12:45 12/03/16 12:44 UNV Clonazepam (KlonoPIN) 1 mg BEDTIME ORAL 11/25/16 21:00 12/02/16 20:59 11/25/16 21:05 Dextrose (Dextrose 50%) STAT PRN IV Hypoglycemia 11/23/16 22:15 12/23/16 22:14 Docusate Sodium (Colace) 100 mg THREE TIMES A DAY ORAL 11/25/16 18:00 12/25/16 17:59 11/26/16 13:07 Heparin Sodium (Porcine) (Heparin 5000 units/ml) 5,000 units EVERY 12 HOURS SUBQ 11/24/16 09:00 12/24/16 08:59 11/26/16 08:42 Ketorolac Tromethamine (Toradol 30mg) 30 mg EVERY 8 HOURS PRN IV moderate pain 4-6 11/23/16 22:15 11/28/16 22:14 Lactulose (Cephulac) 30 gm THREE TIMES A DAY ORAL 11/25/16 18:00 12/25/16 17:59 11/26/16 13:07 Lorazepam (Ativan 2mg/ml 1ml) 0.5 mg Q4H PRN IV For Anxiety 11/23/16 22:15 11/30/16 22:14 Magnesium Hydroxide (Mom) 30 ml Q4H PRN ORAL Constipation 11/24/16 13:45 12/24/16 13:44 11/25/16 09:57 Methylprednisolone Sodium Succinate (Solu-MEDROL) 60 mg DAILY IV 11/26/16 09:00 12/26/16 08:59 11/26/16 08:40 Mineral Oil (Fleet's Mineral Oil Enema) 133 ml EVERY OTHER DAY RECTAL 11/27/16 09:00 12/27/16 08:59 Morphine Sulfate (Morphine Sulfate) 2 mg Q4H PRN IVP severe pain 7-10 11/23/16 22:15 11/30/16 22:14 Nitroglycerin (Ntg) 0.4 mg Q5M X 3 DOSES PRN SL Prn Chest Pain 11/23/16 22:15 12/23/16 22:14 Ondansetron HCl (Zofran) 4 mg Q6H PRN IVP Nausea & Vomiting 11/23/16 22:15 12/23/16 22:14 Oxycodone HCl (Roxicodone) 30 mg Q4H PRN ORAL severe pain 11/26/16 09:30 11/30/16 23:59 Piperacillin Sod/ Tazobactam Sod/ Dextrose (Zosyn/D5W) 55 ml @ 110 mls/hr EVERY 8 HOURS IV 11/24/16 06:00 11/29/16 05:59 11/26/16 05:39 Polyethylene Glycol (Miralax) 17 gm BEDTIME ORAL 11/25/16 21:00 12/25/16 20:59 11/25/16 21:05 Promethazine HCl/ Codeine (Phenergan with Codeine) 5 ml Q6H PRN ORAL cough 11/23/16 22:15 12/23/16 22:14 Risperidone (RisperDAL) 2 mg BEDTIME ORAL 11/26/16 21:00 12/26/16 20:59 UNV Sennosides (Senokot) 8.6 mg DAILY ORAL 11/26/16 09:00 12/26/16 08:59 11/26/16 08:40 Temazepam (Restoril) 15 mg HSPRN PRN ORAL Insomnia 11/23/16 22:15 11/30/16 22:14 Theophylline 100 mg 100 mg EVERY 12 HOURS ORAL 11/24/16 09:00 12/24/16 08:59 11/26/16 08:41 KITTY HERNANDEZ November 26, 2016 13:10
[2016-11-26] MEDS: Azithromycin 250mg tab ORAL SCH (13:25)
--- NOTE | 2016-11-26 13:35 | Diagnostic Imaging Report ---
Indications: Dyspnea Technique: Portable AP chest Findings: Comparison: None Cardiac silhouette remains normal in size. Pulmonary vasculature remains within normal limits. Inspiratory effort has decreased. Previous bibasal linear densities no longer visualized. Lungs and pleura remain otherwise clear. Mild calcification and elongation of the aortic arch are again noted. IMPRESSION: Resolution versus vascular pulmonary bibasal subsegmental atelectasis versus scarring No evidence of acute cardiopulmonary disease Aortosclerosis and probable chronic hypertensive change, stable
[2016-11-26 15:57] VITALS: BP 146/87
--- NOTE | 2016-11-26 19:51 | Consultation ---
DATE OF CONSULTATION: INFECTIOUS DISEASE CONSULTATION CONSULTING PHYSICIAN: Juan C Baumann M.D. REFERRING PHYSICIAN: Farhan Ortega M.D. REASON FOR CONSULTATION: Evaluation of the patient for positive blood culture and possible need for antibiotics. HISTORY OF PRESENT ILLNESS: The patient is a 76-year-old male with multiple medical problems, who was admitted to this medical center due to the shortness of breath, severe exacerbation. The patient's blood culture two out of three is growing gram positive cocci. Infectious Disease consultation has been requested for further evaluation of the patient and antibiotic management. The patient overall is a poor historian. Much of the information is gathered through the chart and speaking to the staff. PAST MEDICAL HISTORY: 1. Depression. 2. Anxiety. 3. History of cocaine and alcohol abuse. 4. History of CVA. 5. History of neuropathy. MEDICATIONS: Solu-Medrol and Zosyn. ALLERGIES: Tetracycline. SOCIAL HISTORY: As mentioned above. FAMILY HISTORY: The patient is a poor historian. REVIEW OF SYSTEMS: Poor historian. PHYSICAL EXAMINATION: VITAL SIGNS: Temperature 97.4 degrees, blood pressure 115/79, pulse 86, and respiratory rate 18. HEENT: Mild pale conjunctivae. No icterus. NECK: No lymphadenopathy. CHEST: Coarse breathing sounds. HEART: S1 and S2. ABDOMEN: Soft and nontender. EXTREMITIES: No cyanosis. NEUROLOGIC: Awake. LABORATORY DATA: White blood cells 7.3, hemoglobin 11, and platelets 152,000. BUN 13 and creatinine 0.8. ALT, AST, and alkaline phosphatase are unremarkable. Blood cultures, two out of three is growing coagulase-negative Staph. Sputum culture is pending. Chest x-ray final report is pending. ASSESSMENT: The patient is a 76-year-old male with multiple medical problems, who has been admitted to this medical center for shortness of breath, possible chronic obstructive pulmonary disease exacerbation, and possible underlying pneumonia. The patient's blood culture is growing coagulase-negative Staph that appears to be a contaminant and there is no clinical significance at this point. The patient overall is a very poor historian and I was not able to get much detailed information. PLAN: 1. We will continue the patient on Zosyn. We will add Zithromax. Upon discharge, we will switch to Augmentin and Zithromax to complete the course. 2. Monitor CBC. 3. Monitor BMP. 4. Monitor sputum culture. 5. Based on the patient's clinical course and laboratories, we will do further recommendations. Thank you, Dr. Ortega, for allowing me to participate in the care of this patient. I will follow the patient with you during this hospitalization. Juan C Baumann M.D. DR: FADIA JOB#: [id number] CC:
[2016-11-26 20:00] VITALS: BP 165/96
[2016-11-26] MEDS: Miralax 17gm pkt ORAL SCH (21:34)
[2016-11-27] VITALS: BP 110/64
--- NOTE | 2016-11-27 00:01 | Progress Note ---
SUBJECTIVE: Upon evaluation today, the patient is yet very angry and agitated. The patient has stated that he has lied to the doctor and he does not need to be remained in the hospital nor needs to go to a jail. The patient is denying any manic, psychotic, or depressive symptoms. However, he is extremely angry, agitated, and paranoid. He has poor insight and judgment into what is going on. He was reluctant again to meet with me. The patient is a frequent flyer, recently saw him in another hospital, which is [facility] with the similar presentation. He does endorse mild cognitive impairment. MENTAL STATUS EXAMINATION: The patient is alert and oriented times place, time, and situation. Mood is angry. Affect is constricted. Congruent with mood. Thought process is concrete. Thought content is positive for delusions. Insight and judgment are impaired. ASSESSMENT: Schizophrenia, mood disorder, and cognitive impairment. PLAN: 1. Risperidone 2 mg p.o. at bedtime. 2. We will continue to follow and readjust the medications. Kayla Christensen M.D. DR: MIN JOB#: [id number] CC:
[2016-11-27 04:00] VITALS: BP 138/96
[2016-11-27] MEDS: DuoNeb 0.5-3(2.5)mg/3ml neb HHN SCH ×6 (04:41→23:23)
[2016-11-27] MEDS: oxyCODONE 15mg IR tab ORAL PRN (04:58)
[2016-11-27] MEDS: Piperacillin/Tazobactam 2.25 GM in D5W 55 ML IV SCH (04:58)
[2016-11-27 08:01] VITALS: BP 141/66
[2016-11-27] MEDS: Lactulose 20gm/30ml UDC ORAL SCH ×2 (08:06→12:12)
[2016-11-27] MEDS: Docusate 100mg cap ORAL SCH ×2 (08:06→12:12)
[2016-11-27] MEDS: Theophylline ER 100mg ORAL SCH ×2 (08:06→22:33)
[2016-11-27] MEDS: Azithromycin 250mg tab ORAL SCH (08:07)
[2016-11-27] MEDS: Solu-MEDROL 125mg Inj IV SCH (08:07)
[2016-11-27] MEDS: Heparin 5000 units/ml inj SUBQ SCH ×2 (08:08→22:37)
[2016-11-27] MEDS ORDERED: Fleet's Mineral Oil Enema RECTAL SCH (09:00)
[2016-11-27 11:49] VITALS: BP 137/87
--- NOTE | 2016-11-27 13:10 | Pulmonology Progress Note ---
Assessment/Plan Problems: (1) Acute respiratory failure (2) COPD with acute exacerbation (3) Peripheral neuropathy (4) History of cocaine abuse (5) Hypertension Assessment/Plan improving respiratory treatment taper Iv steroids check sputum, pending laxatives, add more refused to go to jail, wants to go back to his car Subjective ROS Limited/Unobtainable: No Interval Events: doens't feel good, has some abominal pain Allergies: Coded Allergies: TETRACYCLINE (Verified Allergy, Unknown, 01/07/11) Objective Last 24 Hour Vital Signs Date Time Temp Pulse Resp B/P Pulse Ox O2 Delivery O2 Flow Rate FiO2 11/27/16 11:49 97.8 99 20 137/87 96 Nasal Cannula 2.0 11/27/16 11:10 82 18 98 Nasal Cannula 2.0 28 11/27/16 11:05 80 18 95 Nasal Cannula 2.0 28 11/27/16 08:06 94 141/66 11/27/16 08:01 98.2 94 20 141/66 95 Room Air 11/27/16 08:00 118 11/27/16 07:25 75 20 98 Nasal Cannula 2.0 28 11/27/16 07:25 93 Nasal Cannula 2.0 28 11/27/16 07:25 113 18 93 Nasal Cannula 2.0 28 11/27/16 07:25 Nasal Cannula 2.0 28 11/27/16 04:00 77 11/27/16 04:00 97.7 82 21 138/96 96 Room Air 11/27/16 03:10 89 20 99 Nasal Cannula 2.0 28 11/27/16 03:00 82 18 94 Nasal Cannula 2.0 28 11/27/16 00:00 91 11/27/16 00:00 96.8 88 22 110/64 92 Room Air 11/26/16 23:59 91 20 98 Nasal Cannula 2.0 28 11/26/16 23:52 85 18 95 Nasal Cannula 2.0 28 11/26/16 22:44 72 107/69 11/26/16 20:00 92 11/26/16 20:00 97.8 87 20 165/96 98 Nasal Cannula 2.0 11/26/16 19:59 87 20 97 Nasal Cannula 2.0 28 11/26/16 19:43 Nasal Cannula 2.0 28 11/26/16 19:43 93 Nasal Cannula 2.0 28 11/26/16 19:42 91 18 93 Nasal Cannula 2.0 28 11/26/16 16:00 85 11/26/16 15:57 97.5 87 20 146/87 95 Room Air 11/26/16 13:10 85 20 98 Nasal Cannula 2.0 28 Intake and Output 11/26/16 11/27/16 19:00 07:00 Intake Total 230 ml Output Total 500 ml Balance -270 ml Intake Oral 120 ml IV Total 110 ml Output Urine Total 500 ml # Voids 2 3 # Bowel Movements 2 General Appearance: WD/WN HEENT: normocephalic, atraumatic Respiratory/Chest: chest wall non-tender, lungs clear Cardiovascular: normal peripheral pulses, normal rate Abdomen: normal bowel sounds, no organomegaly Extremities: no cyanosis Skin: no rash Microbiology Date/Time Source Procedure Growth Status 11/25/16 18:30 Sputum Gram Stain - Final Resulted 11/25/16 18:30 Sputum Sputum Culture - Preliminary NORMAL UPPER RESPIRATORY JS AT 24 ... Resulted Current Medications Medications (Trade) Dose Ordered Sig/Aguila Route PRN Reason Start Time Stop Time Status Last Admin Dose Admin Albuterol/ Ipratropium (DuoNeb 0.5-3(2.5)mg/3ml) 3 ml Q4HRT HHN 11/24/16 13:37 11/29/16 13:36 11/27/16 11:10 Amlodipine Besylate (Norvasc) 2.5 mg DAILY ORAL 11/24/16 09:00 12/24/16 08:59 11/27/16 08:06 Azithromycin (Zithromax) 500 mg DAILY ORAL 11/26/16 14:00 12/03/16 13:59 11/27/16 08:07 Clonazepam (KlonoPIN) 1 mg BEDTIME ORAL 11/25/16 21:00 12/02/16 20:59 11/26/16 21:34 Dextrose (Dextrose 50%) STAT PRN IV Hypoglycemia 11/23/16 22:15 12/23/16 22:14 Docusate Sodium (Colace) 100 mg THREE TIMES A DAY ORAL 11/25/16 18:00 12/25/16 17:59 11/27/16 12:12 Heparin Sodium (Porcine) (Heparin 5000 units/ml) 5,000 units EVERY 12 HOURS SUBQ 11/24/16 09:00 12/24/16 08:59 11/27/16 08:08 Ketorolac Tromethamine (Toradol 30mg) 30 mg EVERY 8 HOURS PRN IV moderate pain 4-6 11/23/16 22:15 11/28/16 22:14 Lactulose (Cephulac) 30 gm THREE TIMES A DAY ORAL 11/25/16 18:00 12/25/16 17:59 11/27/16 12:12 Lorazepam (Ativan 2mg/ml 1ml) 0.5 mg Q4H PRN IV For Anxiety 11/23/16 22:15 11/30/16 22:14 Magnesium Hydroxide (Mom) 30 ml Q4H PRN ORAL Constipation 11/24/16 13:45 12/24/16 13:44 11/25/16 09:57 Methylprednisolone Sodium Succinate (Solu-MEDROL) 60 mg DAILY IV 11/26/16 09:00 12/26/16 08:59 11/27/16 08:07 Mineral Oil (Fleet's Mineral Oil Enema) 133 ml EVERY OTHER DAY RECTAL 11/27/16 09:00 12/27/16 08:59 Morphine Sulfate (Morphine Sulfate) 2 mg Q4H PRN IVP severe pain 7-10 11/23/16 22:15 11/30/16 22:14 11/27/16 00:41 Nitroglycerin (Ntg) 0.4 mg Q5M X 3 DOSES PRN SL Prn Chest Pain 11/23/16 22:15 12/23/16 22:14 Ondansetron HCl (Zofran) 4 mg Q6H PRN IVP Nausea & Vomiting 11/23/16 22:15 12/23/16 22:14 Oxycodone HCl (Roxicodone) 30 mg Q4H PRN ORAL severe pain 11/26/16 09:30 11/30/16 23:59 11/27/16 04:58 Piperacillin Sod/ Tazobactam Sod/ Dextrose (Zosyn/D5W) 110 ml @ 27.5 mls/hr EVERY 8 HOURS IVPB 11/27/16 14:00 12/02/16 13:59 Polyethylene Glycol (Miralax) 17 gm BEDTIME ORAL 11/25/16 21:00 12/25/16 20:59 11/26/16 21:34 Promethazine HCl/ Codeine (Phenergan with Codeine) 5 ml Q6H PRN ORAL cough 11/23/16 22:15 12/23/16 22:14 Risperidone 2 mg 2 mg BEDTIME ORAL 11/26/16 21:00 12/26/16 20:59 11/26/16 21:34 Sennosides (Senokot) 8.6 mg DAILY ORAL 11/26/16 09:00 12/26/16 08:59 11/27/16 08:07 Temazepam (Restoril) 15 mg HSPRN PRN ORAL Insomnia 11/23/16 22:15 11/30/16 22:14 Theophylline (Rigoberto-Dur) 100 mg EVERY 12 HOURS ORAL 11/24/16 09:00 12/24/16 08:59 11/27/16 08:06 KITTY HERNANDEZ November 27, 2016 13:10
[2016-11-27] MEDS: Zosyn 3.375gm q8h **Extended infusion IVPB SCH ×4 (13:49→22:34)
[2016-11-27 16:02] VITALS: BP 146/98
[2016-11-27] MEDS ORDERED: Lactulose 20gm/30ml UDC ORAL SCH (18:00)
[2016-11-27] MEDS ORDERED: Docusate 100mg cap ORAL SCH (18:00)
--- NOTE | 2016-11-27 18:58 | Infectious Diseases Prog Note ---
Assessment/Plan Assessment/Plan A: Pnaum Bronchitis , : sputum culture : Nl campbell blood culture: CoNS ( contaminant ) Depression Anxiety History of cocaine and alcohol abuse History of CVA History of neuropathy PLAN: cont on Zosyn and Zithromax d# 2 / 5 , upon discharge, we will switch to Augmentin and Zithromax to complete the course. Monitor CBC. Monitor BMP. Subjective Constitutional: Denies: anorexia, chills, drenching sweats, fatigue, fever, no symptoms, other Allergies: Coded Allergies: TETRACYCLINE (Verified Allergy, Unknown, 01/07/11) Objective Vital Signs Last 24 Hour Vital Signs Date Time Temp Pulse Resp B/P Pulse Ox O2 Delivery O2 Flow Rate FiO2 11/27/16 16:02 97.6 94 20 146/98 96 Nasal Cannula 2.0 11/27/16 16:00 88 11/27/16 15:04 84 18 98 Nasal Cannula 2.0 28 11/27/16 15:03 79 18 94 Nasal Cannula 2.0 28 11/27/16 12:00 114 11/27/16 11:49 97.8 99 20 137/87 96 Nasal Cannula 2.0 11/27/16 11:10 82 18 98 Nasal Cannula 2.0 28 11/27/16 11:05 80 18 95 Nasal Cannula 2.0 28 11/27/16 08:06 94 141/66 11/27/16 08:01 98.2 94 20 141/66 95 Room Air 11/27/16 08:00 118 11/27/16 07:25 75 20 98 Nasal Cannula 2.0 28 11/27/16 07:25 93 Nasal Cannula 2.0 28 11/27/16 07:25 113 18 93 Nasal Cannula 2.0 28 11/27/16 07:25 Nasal Cannula 2.0 28 11/27/16 04:00 77 11/27/16 04:00 97.7 82 21 138/96 96 Room Air 11/27/16 03:10 89 20 99 Nasal Cannula 2.0 28 11/27/16 03:00 82 18 94 Nasal Cannula 2.0 28 11/27/16 00:00 91 11/27/16 00:00 96.8 88 22 110/64 92 Room Air 11/26/16 23:59 91 20 98 Nasal Cannula 2.0 28 11/26/16 23:52 85 18 95 Nasal Cannula 2.0 28 11/26/16 22:44 72 107/69 11/26/16 20:00 92 11/26/16 20:00 97.8 87 20 165/96 98 Nasal Cannula 2.0 11/26/16 19:59 87 20 97 Nasal Cannula 2.0 28 11/26/16 19:43 Nasal Cannula 2.0 28 11/26/16 19:43 93 Nasal Cannula 2.0 28 11/26/16 19:42 91 18 93 Nasal Cannula 2.0 28 Height (Feet): 6 Height (Inches): 0.00 Weight (Pounds): 180 Respiratory/Chest: chest wall non-tender Cardiovascular: normal rate Abdomen: normal bowel sounds, non distended Microbiology Date/Time Source Procedure Growth Status 11/25/16 18:30 Sputum Gram Stain - Final Resulted 11/25/16 18:30 Sputum Sputum Culture - Preliminary NORMAL UPPER RESPIRATORY CAMPBELL AT 24 ... Resulted Current Medications Medications (Trade) Dose Ordered Sig/Aguila Route PRN Reason Start Time Stop Time Status Last Admin Dose Admin Albuterol/ Ipratropium (DuoNeb 0.5-3(2.5)mg/3ml) 3 ml Q4HRT HHN 11/24/16 13:37 11/29/16 13:36 11/27/16 15:03 Amlodipine Besylate (Norvasc) 2.5 mg DAILY ORAL 11/24/16 09:00 12/24/16 08:59 11/27/16 08:06 Azithromycin (Zithromax) 500 mg DAILY ORAL 11/26/16 14:00 12/03/16 13:59 11/27/16 08:07 Clonazepam (KlonoPIN) 1 mg BEDTIME ORAL 11/25/16 21:00 12/02/16 20:59 11/26/16 21:34 Dextrose (Dextrose 50%) STAT PRN IV Hypoglycemia 11/23/16 22:15 12/23/16 22:14 Docusate Sodium (Colace) 100 mg THREE TIMES A DAY ORAL 11/27/16 18:00 12/27/16 17:59 11/27/16 17:45 Heparin Sodium (Porcine) (Heparin 5000 units/ml) 5,000 units EVERY 12 HOURS SUBQ 11/24/16 09:00 12/24/16 08:59 11/27/16 08:08 Ketorolac Tromethamine (Toradol 30mg) 30 mg EVERY 8 HOURS PRN IV moderate pain 4-6 11/23/16 22:15 11/28/16 22:14 Lactulose (Cephulac) 30 gm THREE TIMES A DAY ORAL 11/27/16 18:00 12/27/16 17:59 11/27/16 17:45 Lorazepam (Ativan 2mg/ml 1ml) 0.5 mg Q4H PRN IV For Anxiety 11/23/16 22:15 11/30/16 22:14 Magnesium Hydroxide (Mom) 30 ml Q4H PRN ORAL Constipation 11/24/16 13:45 12/24/16 13:44 11/25/16 09:57 Methylprednisolone Sodium Succinate (Solu-MEDROL) 60 mg DAILY IV 11/26/16 09:00 12/26/16 08:59 11/27/16 08:07 Mineral Oil (Fleet's Mineral Oil Enema) 133 ml EVERY OTHER DAY RECTAL 11/27/16 09:00 12/27/16 08:59 Morphine Sulfate (Morphine Sulfate) 2 mg Q4H PRN IVP severe pain 7-10 11/23/16 22:15 11/30/16 22:14 11/27/16 00:41 Nitroglycerin (Ntg) 0.4 mg Q5M X 3 DOSES PRN SL Prn Chest Pain 11/23/16 22:15 12/23/16 22:14 Ondansetron HCl (Zofran) 4 mg Q6H PRN IVP Nausea & Vomiting 11/23/16 22:15 12/23/16 22:14 Oxycodone HCl (Roxicodone) 30 mg Q4H PRN ORAL severe pain 11/26/16 09:30 11/30/16 23:59 11/27/16 04:58 Piperacillin Sod/ Tazobactam Sod/ Dextrose (Zosyn/D5W) 110 ml @ 27.5 mls/hr EVERY 8 HOURS IVPB 11/27/16 14:00 12/02/16 13:59 11/27/16 13:49 Polyethylene Glycol (Miralax) 17 gm BEDTIME ORAL 11/27/16 21:00 12/27/16 20:59 Promethazine HCl/ Codeine (Phenergan with Codeine) 5 ml Q6H PRN ORAL cough 11/23/16 22:15 12/23/16 22:14 Risperidone 2 mg 2 mg BEDTIME ORAL 11/26/16 21:00 12/26/16 20:59 11/26/16 21:34 Sennosides (Senokot) 8.6 mg DAILY ORAL 11/28/16 09:00 12/28/16 08:59 Temazepam (Restoril) 15 mg HSPRN PRN ORAL Insomnia 11/23/16 22:15 11/30/16 22:14 Theophylline (Rigoberto-Dur) 100 mg EVERY 12 HOURS ORAL 11/24/16 09:00 12/24/16 08:59 11/27/16 08:06 YONATAN KIRK M.D. November 27, 2016 18:58
[2016-11-27 20:02] VITALS: BP 154/98
[2016-11-27] MEDS ORDERED: Miralax 17gm pkt ORAL SCH (21:00)
[2016-11-28 00:25] VITALS: BP 146/90
[2016-11-28] MEDS: DuoNeb 0.5-3(2.5)mg/3ml neb HHN SCH ×2 (03:00→07:00)
[2016-11-28 04:15] VITALS: BP_SYST 142; BP_SYST 151; BP_DIAS 70; BP_DIAS 73
[2016-11-28] MEDS: oxyCODONE 15mg IR tab ORAL PRN (04:38)
[2016-11-28] MEDS: Zosyn 3.375gm q8h **Extended infusion IVPB SCH ×2 (06:27)
[2016-11-28 07:38] VITALS: BP 127/72
[2016-11-28] MEDS ORDERED: NS 275ml ONE (09:28)
[2016-11-28] MEDS ORDERED: Tubing IV Secondary IV ONE (09:28)
--- NOTE | 2016-11-28 17:53 | Cardiology Report ---
APPROVED REPORT EKG Measurement Heart [id number] Sinus rhythm with short NC with premature atrial complexes Otherwise normal ECG
[2016-11-29] MEDS ORDERED: Fleet's Mineral Oil Enema RECTAL SCH (09:00)
--- NOTE | 2016-11-29 13:55 | Discharge Summary ---
Discharge Summary Hospital Course Date of Admission November 23, 2016 at 20:37 Date of Discharge November 28, 2016 at 08:40 Admitting Diagnosis COPD HPI Giojohanna Lopes is a 76 year old male who was admitted on November 23, 2016 at 20:37 for COPD Hospital Course [id number] Discharge Discharge Disposition Patient was discharged Discharge Diagnoses: Katelin Ray NP November 29, 2016 13:55
== END 2016-11-28 08:40 | disposition home or self-care (01) | DRG 190 ==
LOC: EDBD 19:04 → EMR 19:30 → EDBEDREQ 20:15 → 2E 20:37
DX: J44.1 Chronic obstructive pulmonary disease with (acute) exacerbation (principal); J96.00 Acute respiratory failure, unspecified whether with hypoxia or hypercapnia; F11.20 Opioid dependence, uncomplicated; F19.20 Other psychoactive substance dependence, uncomplicated; G62.9 Polyneuropathy, unspecified; I10 Essential (primary) hypertension; Z86.73 Personal history of transient ischemic attack (TIA), and cerebral infarction without residual deficits; Z88.8 Allergy status to other drugs, medicaments and biological substances; F14.21 Cocaine dependence, in remission; Z59.0 Homelessness; F20.9 Schizophrenia, unspecified; F39 Unspecified mood [affective] disorder; F32.9 Major depressive disorder, single episode, unspecified; F41.9 Anxiety disorder, unspecified; G31.84 Mild cognitive impairment of uncertain or unknown etiology
CPT/HCPCS: 36415; 71010; 80053; 80300; 82550; 82553; 83880; 84484; 85025; 87040; 87070; 87081; 87181; 87205; 93005; 94640; 94664; 94760; J7620; J8499

== ENCOUNTER 2017-01-15 20:30 | Emergency (ER) | payer MEDICARE, MEDICAID ==
[~2017-01-15] VITALS: Ht 188 cm; Wt 83.9 kg
[~2017-01-15 20:30] MED LIST changes: -Albuterol ud Inhalation HHN ONE; -Albuterol ud Inhalation ONE; -Azithromycin 500 MG in D5W 275 ML IVPB STA; -Azithromycin Inj IV ONE; -Ipratropium 0.02% Inh Soln 2.5ml UD HHN ONE; -Ipratropium 0.02% Inh Soln 2.5ml UD ONE
[2017-01-15] MEDS ORDERED: DuoNeb 0.5-3(2.5)mg/3ml neb HHN ONE (20:45)
[2017-01-15 21:12] LABS: BASOPHILS % (AUTO) 0.9 % (0.0-2.0); LYMPHOCYTES % (AUTO) 21.9 % (20.0-45.0); MEAN CORPUSCULAR HEMOGLOBIN 30.5 PG (27.0-31.0); MEAN CORPUSCULAR HGB CONC 33.4 G/DL (32.0-36.0); MEAN CORPUSCULAR VOLUME 91 FL (80-99); MEAN PLATELET VOLUME 6.2 FL (6.5-10.1); MONOCYTES % (AUTO) 9.2 % (1.0-10.0); PLATELET COUNT 142 K/UL (150-450); RED BLOOD COUNT 3.74 M/UL (4.70-6.10); RED CELL DISTRIBUTION WIDTH 17.9 % (11.6-14.8); WHITE BLOOD COUNT 5.5 K/UL (4.8-10.8)
[2017-01-15 21:29] LABS: TROPONIN I < 0.30 ng/mL (<=0.30)
[2017-01-15 21:32] LABS: ALANINE AMINOTRANSFERASE 199 U/L (3-41); ALBUMIN/GLOBULIN RATIO 1.4 (1.0-2.7); ANION GAP 15 (5-15); ASPARTATE AMINO TRANSFERASE 711 U/L (5-40); CALCIUM 8.5 mg/dL (8.6-10.2); CARBON DIOXIDE 28 mEQ/L (20-30); CHLORIDE 97 mEQ/L (98-107); CREATININE 0.8 mg/dL (0.7-1.2); HEMOLYSIS 34; LIPASE 30 U/L (< 60); POTASSIUM 3.4 mEQ/L (3.4-4.9); SODIUM 140 mEQ/L (135-145); TOTAL PROTEIN 6.6 g/dL (6.6-8.7)
[2017-01-15 21:43] LABS: CKMB 1.7 ng/mL (< 6.7)
[2017-01-15] MEDS ORDERED: ALBUTEROL SULF8.5 GM INH (21:49)
[2017-01-15 22:11] VITALS: BP 160/81
[2017-01-15 22:12] VITALS: BP 160/81
--- NOTE | 2017-01-16 09:40 | Diagnostic Imaging Report ---
Indication: Chest pain Technique: Continuous helical transaxial imaging of the chest was obtained from the thoracic inlet to the upper abdomen. No intravenous contrast was administered. Coronal 2-D reformats were also obtained. Total Dose length Product (DLP): [address] Dose Index Volume (CTDIvol): 29, 29, 21 mGy Comparison: none Findings: There are calcification of the right hilum as well right lung base and spleen consistent with old granulomatous disease. There are other nodules that are noncalcified within the right lung particularly in the right upper lobe. These may be noncalcified granulomata. One nodule is noted somewhat ill-defined and measures about 7 mm in the right upper lobe (image 20 of series 5). A second prominent nodule also ill-defined noted in the lingula measuring 8 mm (image 34 of series 5). 6 month followup examination is recommended. There is no consolidation. There is no evidence of interstitial disease. Arterial vascular calcifications are moderate within the aorta. Visualized part of the upper abdomen is unremarkable. There is narrowing of intervertebral discs and accompanying endplate osteophyte formation. Hypertrophied facet joints also demonstrated. Impression: Evidence of old granulomatous disease. Nonspecific noncalcified pulmonary nodules as discussed above. These may be noncalcified granulomata. Followup at 6 months recommended per Fleischner Society criteria. Atherosclerotic vascular disease Spondylosis Dr. Pinto has communicated the preliminary results to the Emergency Department. There are no significant discrepancies. The CT scanner at [facility] is accredited by the [employer] and the scans are performed using dose optimization techniques as appropriate to a performed exam including Automatic Exposure control.
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
== END 2017-01-15 22:15 | disposition home or self-care (01) ==
LOC: EMR 20:49
DX: J44.1 Chronic obstructive pulmonary disease with (acute) exacerbation (principal); Z88.8 Allergy status to other drugs, medicaments and biological substances; I10 Essential (primary) hypertension; Z86.73 Personal history of transient ischemic attack (TIA), and cerebral infarction without residual deficits
CPT/HCPCS: 36415; 71250; 80053; 82550; 82553; 83690; 83880; 84484; 85025; 93005; 94640; 94664; 99283; J7620

== ENCOUNTER 2017-10-07 20:09 | Inpatient (IN) | payer MEDICARE, MEDICAID ==
[~2017-10-07] VITALS: Ht 188 cm; Wt 90.7 kg
[2017-10-07] MEDS ORDERED: Solu-MEDROL 125mg Inj IVP ONE (20:30)
[2017-10-07] MEDS: Albuterol/Ipratropium 3ml neb HHN SCH ×2 (20:37→20:38)
[2017-10-07 20:58] VITALS: BP 153/95
[2017-10-07 21:48] LABS: BASOPHILS % (AUTO) 0.7 % (0.0-2.0); EOSINOPHILS % (AUTO) 5.6 % (0.0-3.0); HEMATOCRIT 34.4 % (42.0-52.0); HEMOGLOBIN 10.7 G/DL (14.2-18.0); LYMPHOCYTES % (AUTO) 31.1 % (20.0-45.0); MEAN CORPUSCULAR VOLUME 82 FL (80-99); MONOCYTES % (AUTO) 16.9 % (1.0-10.0); NEUTROPHILS % (AUTO) 45.6 % (45.0-75.0); PLATELET COUNT 189 K/UL (150-450); RED BLOOD COUNT 4.22 M/UL (4.70-6.10); RED CELL DISTRIBUTION WIDTH 18.1 % (11.6-14.8); WHITE BLOOD COUNT 6.9 K/UL (4.8-10.8)
[2017-10-07 22:01] LABS: ANION GAP 4 mmol/L (5-15); BLOOD UREA NITROGEN 6 mg/dL (7-18); CALCIUM 8.3 MG/DL (8.5-10.1); CARBON DIOXIDE 37 MMOL/L (21-32); CHLORIDE 104 MMOL/L (98-107); CREATININE 0.8 MG/DL (0.55-1.30); POTASSIUM 3.6 MMOL/L (3.5-5.1); SODIUM 145 MMOL/L (136-145)
[2017-10-07 22:06] LABS: ALANINE AMINOTRANSFERASE 26 U/L (12-78); ALBUMIN 3.3 G/DL (3.4-5.0); ALBUMIN/GLOBULIN RATIO 0.9 (1.0-2.7); ALKALINE PHOSPHATASE 48 U/L (46-116); ASPARTATE AMINO TRANSFERASE 29 U/L (15-37); BILIRUBIN,TOTAL 0.5 MG/DL (0.2-1.0)
--- NOTE | 2017-10-07 22:07 | Emergency Room Report ---
History of Present Illness General Chief Complaint: Dyspnea/Respdistress Present Illness HPI Patient is a 77-year-old male brought in by EMS after increased difficulty breathing. Patient gradual onset of symptoms. Patient had prior history of COPD. He is currently a smoker. The patient had previous history of granulomatous disease. Allergies: Coded Allergies: TETRACYCLINE (Verified Allergy, Unknown, 01/07/11) Patient History Reviewed Nursing Documentation: PMH: Agreed; PSxH: Agreed Nursing Documentation-PMH Hx Cardiac Problems: Yes Hx Hypertension: Yes Hx Asthma: Yes Hx COPD: Yes Hx Cancer: No Hx Gastrointestinal Problems: Yes Hx Neurological Problems: Yes Hx Cerebrovascular Accident: Yes Hx Dizziness: Yes Hx Headaches: Yes Hx Weakness: Yes Hx Fatigue: Yes Review of Systems All Other Systems: negative except mentioned in HPI Physical Exam Vital Signs Date Time Temp Pulse Resp B/P (MAP) Pulse Ox O2 Delivery O2 Flow Rate FiO2 10/07/17 20:10 97.6 99 20 153/95 90 Room Air 97.5 10/07/17 20:38 2.0 10/07/17 20:54 100 Sp02 EP Interpretation: reviewed, normal General Appearance: normal inspection, well appearing, no apparent distress, alert, GCS 15 Head: atraumatic ENT: normal ENT inspection, hearing grossly normal, normal voice Neck: normal inspection, full range of motion, supple, no bony tend Respiratory: normal inspection, lungs clear, normal breath sounds, no respiratory distress, no retraction, no wheezing Cardiovascular #1: regular rate, rhythm, no edema Gastrointestinal: normal inspection, normal bowel sounds, non tender, soft, no guarding, no hernia Genitourinary: no CVA tenderness Musculoskeletal: normal inspection, back normal, normal range of motion Neurologic: normal inspection, alert, oriented x3, responsive, wet room worker III-XII nml as tested, speech normal Psychiatric: normal inspection, judgement/insight normal, mood/affect normal Skin: normal inspection, normal color, no rash Medical Decision Making Diagnostic Impression: Primary Impression: COPD exacerbation ER Course Patient presented for shortness of breath. Differential included but was not limited to anemia, pneumonia, pneumothorax, myocardial infarction, pericardial effusion, congestive heart failure, acidosis. Patient was given breathing treatments as well as Solu-Medrol. Chest x-ray one view interpreted by me showed. Atelectasis versus scarring with clear lung fieldsThe patient was noted to have continued difficulty breathing. Dr. Moffett was contacted for inpatient management due to need for inpatient monitoring and treatment. Labs Test 10/07/17 21:27 White Blood Count 6.9 K/UL (4.8-10.8) Red Blood Count 4.22 M/UL (4.70-6.10) Hemoglobin 10.7 G/DL (14.2-18.0) Hematocrit 34.4 % (42.0-52.0) Mean Corpuscular Volume 82 FL (80-99) Mean Corpuscular Hemoglobin 25.3 PG (27.0-31.0) Mean Corpuscular Hemoglobin Concent 31.1 G/DL (32.0-36.0) Red Cell Distribution Width 18.1 % (11.6-14.8) Platelet Count 189 K/UL (150-450) Mean Platelet Volume 7.1 FL (6.5-10.1) Neutrophils (%) (Auto) 45.6 % (45.0-75.0) Lymphocytes (%) (Auto) 31.1 % (20.0-45.0) Monocytes (%) (Auto) 16.9 % (1.0-10.0) Eosinophils (%) (Auto) 5.6 % (0.0-3.0) Basophils (%) (Auto) 0.7 % (0.0-2.0) EKG Diagnostic Results Rate: normal Rhythm: NSR ST Segments: no acute changes Last Vital Signs Date Time Temp Pulse Resp B/P (MAP) Pulse Ox O2 Delivery O2 Flow Rate FiO2 10/07/17 21:26 82 18 100 Nasal Cannula 2.0 10/07/17 20:58 97.5 153/95 97.5 10/07/17 20:54 100 Status: unchanged Disposition: ADMITTED INPATIENT Condition: Serious Referrals: Farhan Ortega MD (PCP) Giovanny Mckinney Oct 07, 2017 22:07
[2017-10-07 22:54] VITALS: BP 139/80
[2017-10-07 23:15] VITALS: BP 148/82
[2017-10-08] VITALS: BP 159/97
[2017-10-08] MEDS ORDERED: Albuterol/Ipratropium 3ml neb HHN PRN (01:15)
[2017-10-08] MEDS ORDERED: Azithromycin 500 MG in D5W 275 ML IV SCH ×2 (02:00→09:00)
[2017-10-08 04:00] VITALS: BP 145/94
[2017-10-08] MEDS: DiphenhydrAMINE 50mg/ml Inj IVP PRN ×2 (05:47→20:17)
[2017-10-08] MEDS ORDERED: Solu-MEDROL 125mg Inj IVP SCH (06:00)
[2017-10-08 08:00] VITALS: BP 150/82
[2017-10-08] MEDS: Heparin 5000 units/ml inj SUBQ SCH ×2 (08:36→20:19)
--- NOTE | 2017-10-08 09:11 | History & Physical ---
History and Physical History & Physicial seen and examined. Dic completed Treasure Moffett MD Oct 08, 2017 09:11
--- NOTE | 2017-10-08 09:12 | General Progress Note ---
Assessment/Plan Status: stable Assessment/Plan 1- COPD exacerbation 2- HTN 3- HLP 4- H/o of substance abuse Plan: Pulmonary - Dr Feliciano is consulted current medication Subjective ROS Limited/Unobtainable: No Constitutional: Reports: weakness Respiratory: Reports: shortness of breath Allergies: Coded Allergies: TETRACYCLINE (Verified Allergy, Unknown, 01/07/11) Objective Last 24 Hour Vital Signs Date Time Temp Pulse Resp B/P (MAP) Pulse Ox O2 Delivery O2 Flow Rate FiO2 10/08/17 08:00 97.7 93 22 150/82 93 Nasal Cannula 2.0 97.7 10/08/17 04:18 86 10/08/17 04:00 97.7 87 20 145/94 94 Nasal Cannula 2.0 97.7 10/08/17 00:00 98.0 102 20 159/97 94 Nasal Cannula 2.0 98.0 10/07/17 23:47 103 10/07/17 23:30 98.3 92 19 148/82 97 Nasal Cannula 10/07/17 23:15 98.3 92 19 148/82 97 Nasal Cannula 2.0 100 98.3 10/07/17 22:54 98.3 89 18 139/80 93 Nasal Cannula 2.0 100 98.3 10/07/17 21:26 82 18 100 Nasal Cannula 2.0 10/07/17 20:58 97.5 99 18 153/95 95 Nasal Cannula 2.0 97.5 10/07/17 20:54 99 20 Nasal Cannula 2.0 100 10/07/17 20:39 85 18 95 Nasal Cannula 2.0 10/07/17 20:38 85 18 Nasal Cannula 2.0 10/07/17 20:10 97.6 99 20 153/95 90 Room Air 97.5 Intake and Output 10/07/17 10/08/17 19:00 07:00 Intake Total 60 ml Balance 60 ml Intake Oral 60 ml # Voids 2 Laboratory Tests 10/07/17 21:27: White Blood Count 6.9, Red Blood Count 4.22L, Hemoglobin 10.7L, Hematocrit 34.4L , Mean Corpuscular Volume 82, Mean Corpuscular Hemoglobin 25.3L, Mean Corpuscular Hemoglobin Concent 31.1L, Red Cell Distribution Width 18.1H, Platelet Count 189, Mean Platelet Volume 7.1, Neutrophils (%) (Auto) 45.6, Lymphocytes (%) (Auto) 31.1, Monocytes (%) (Auto) 16.9H, Eosinophils (%) (Auto) 5.6H, Basophils (%) (Auto) 0.7, Sodium Level 145, Potassium Level 3.6, Chloride Level 104, Carbon Dioxide Level 37H, Anion Gap 4L, Blood Urea Nitrogen 6L, Creatinine 0.8, Estimat Glomerular Filtration Rate , Glucose Level 87, Calcium Level 8.3L, Total Bilirubin 0.5, Aspartate Amino Transf (AST/SGOT) 29, Alanine Aminotransferase (ALT/SGPT) 26, Alkaline Phosphatase 48, Troponin I 0.000, Total Protein 6.8, Albumin 3.3L, Globulin 3.5, Albumin/Globulin Ratio 0.9L Height (Feet): 6 Height (Inches): 2.00 Weight (Pounds): 200 General Appearance: no apparent distress EENT: PERRL/EOMI Neck: supple Cardiovascular: normal rate Respiratory/Chest: rhonchi - bilaterally Abdomen: soft Extremities: non-tender Neurologic: onsite health coach II-XII grossly normal, other - anxious and depressed Treasure Moffett MD Oct 08, 2017 09:12
--- NOTE | 2017-10-08 09:23 | Consultation ---
Consult Note Assessment/Plan DICT # [id number] IZAIAH ZUNIGA M.D. Oct 08, 2017 09:23
[2017-10-08] MEDS: Azithromycin 250mg tab ORAL SCH (10:03)
--- NOTE | 2017-10-08 10:06 | Diagnostic Imaging Report ---
Indication: Shortness of breath Technique: One view of the chest Comparison: 11/26/2016 Findings: There is some atelectasis or scarring at the right lung base, not evident previously. Old healed left eighth rib fracture deformity again demonstrated. The lungs and pleural spaces are otherwise clear. Heart size is normal. The aorta is tortuous ectatic and calcified Impression: Right basilar atelectasis and/or scarring. No acute process otherwise
--- NOTE | 2017-10-08 11:33 | Diagnostic Imaging Report ---
Clinical Indication: Shortness of breath, COPD exacerbation Technique: Spiral acquisitions obtained through the chest. No IV contrast utilized, per referring physician request. Multiplanar reconstructions generated. Total dose length product 774.87 mGycm. CTDIvol(s) 19.35 mGy. Dose reduction achieved using automated exposure control Comparison: 01/15/2017 Findings: There is some image degradation due to motion artifact. There is an irregular opacity in the posterior medial right upper lobe, image 18 series 5, measures approximately 10 mm diameter, not evident previously. Immediately lateral to this on the same cut is a 3 mm subpleural nodule. In retrospect possibly evident previously but slightly more conspicuous currently. Lateral right upper lobe clustered nodules previously demonstrated is not currently evident. A cluster of nodules in the anterior right upper lobe is again demonstrated, appears more peripheral than previously but otherwise not significantly changed. Calcified granuloma in the inferior right upper lobe is unchanged. A calcified granuloma in the superior segment of the right lower lobe is unchanged. Right basilar scarring and bronchiectasis is again demonstrated, probably unchanged but less easily assessed on the current exam due to the motion artifact. Subpleural septal opacities previously demonstrated are not clearly evident currently. There is some scarring at the left lung base not clearly evident previously. Some groundglass opacity in the left posterior perihilar region is not evident previously previously demonstrated irregular subpleural anterior left upper lobe opacity is not currently evident. The pleural spaces are clear. The heart is upper limits normal in size. No pericardial effusion. Granulomatous calcified nodes are seen in the right hilar region, as previously. No mediastinal or hilar mass or adenopathy demonstrated. The thyroid is unremarkable. No axillary or chest wall mass or adenopathy. There is mild bilateral gynecomastia again demonstrated. There is minimal degenerative thoracic spondylosis. The bones are otherwise unremarkable The included upper abdominal anatomy is remarkable for the presence of multiple splenic calcified granulomata. Impression: Scattered pulmonary parenchymal nodules and irregular opacities, as described, some stable since prior study of 01/15/2017, others new. Other lesions previously demonstrated on the earlier study are no longer evident. Findings most likely represent recent or old postinflammatory changes, but neoplasm as etiology of any of these is not excludable. Recommend short interval follow-up CT in 6 months Evidence old granulomatous disease in the right lung, right pulmonary hilar lymph nodes, and in the spleen No acute consolidation or pleural fluid Incidental finding of minimal degenerative thoracic spondylosis, bilateral gynecomastia The CT scanner at [facility] is accredited by the [employer] and the scans are performed using protocols designed to limit radiation exposure to as low as reasonably achievable to attain images of sufficient resolution adequate for diagnostic evaluation.
[2017-10-08 12:00] VITALS: BP 158/95
[2017-10-08] MEDS: Albuterol/Ipratropium 3ml neb HHN SCH ×2 (14:36→21:08)
[2017-10-08 16:00] VITALS: BP 142/76
--- NOTE | 2017-10-08 16:02 | Cardiology Report ---
APPROVED REPORT EKG Measurement Heart [id number] Normal sinus rhythm Possible Anterior infarct, age undetermined Abnormal ECG
--- NOTE | 2017-10-08 17:15 | History and Physical Report ---
DATE OF ADMISSION: 10/07/2017 SOURCE OF INFORMATION: Patient and EMR. HISTORY OF PRESENT ILLNESS: The patient is a 77-year-old white male. The patient presented with the worsening of shortness of breath reported for the last one week. The patient denies any fever or chills. The patient denies any sick contact. The patient reported that his symptoms are the same as the time of admission. At the time of evaluation, the patient denies nausea, vomiting, diarrhea, or constipation. The patient is still complaining of diffuse body aches including the chest wall. Denies any loss of consciousness. PAST MEDICAL HISTORY: Including but not limited to, chronic obstructive pulmonary disease, narcotic dependence, cocaine abuse, history of CVA, and hypertension. PAST SURGICAL HISTORY: The patient denies. MEDICATIONS: Current hospital medications including DuoNeb, azithromycin, subcutaneous heparin, DVT prophylaxis, and prednisone. ALLERGIES: Tetracycline. FAMILY HISTORY: Reviewed and noncontributory. SOCIAL HISTORY: The patient gives remote prior history of smoking, drinking, and alcohol abuse. However, denies any active acute episodes of illicit drug abuse or smoking. PHYSICAL EXAMINATION: VITAL SIGNS: Blood pressure 150/80, temperature 98.2, pulse oximetry 98% on room air, pulse rate 95 to 102, and pulse oximetry 99% on 2 liters of oxygen. HEAD AND NECK: Atraumatic and normocephalic. CHEST: Diffuse bronchial breathing sounds. Negative for wheezing. Negative for crackles. HEART: S1 and S2. Regular rate and rhythm. Negative for S3. Negative for S4. ABDOMEN: Soft. No organomegaly. MUSCULOSKELETAL: Negative for any gross lateralized asymmetric motor deficit. NEUROLOGY: The patient is awake, alert, and oriented x3. Mood and affect is anxious. LABORATORY DATA: Labs dated 10/07/2017 showed WBC 6.9, hemoglobin of 10.7, and platelets of 189,000. Sodium 135, potassium 3.6, BUN 6, and creatinine 0.8. ASSESSMENT: 1. Acute chronic obstructive pulmonary disease exacerbation. 2. History of substance abuse. 3. Hypertension. 4. Hyperlipidemia. 5. Gastrointestinal and deep venous thrombosis prophylaxis, the patient is ambulating at this time. 6. Gastrointestinal bleed. PLAN OF CARE: We will provide narcotic medication to control the pain. Continue with azithromycin, breathing treatments as needed, as well as the Solu-Medrol/prednisone. Pulmonary, Dr. Feliciano has been consulted. Treasure Moffett M.D. DR: CHICHO JOB#: [id number] CC: ELENA
[2017-10-08] MEDS: Advair 250/50 Inhaler - 14 dose INH SCH (18:00)
--- NOTE | 2017-10-08 19:30 | Consultation ---
DATE OF CONSULTATION: 10/08/2017 PULMONARY CONSULTATION CONSULTING PHYSICIAN: Adi Feliciano M.D. REFERRING PHYSICIAN: Treasure Moffett M.D. REASON FOR CONSULTATION: COPD with acute exacerbation. HISTORY OF PRESENT ILLNESS: The patient is a 77-year-old male, current daily smoker with a history of chronic obstructive pulmonary disease, alcohol abuse, hypertension, and hyperlipidemia who presents to the hospital with several days of cough, congestion, and shortness of breath as well as wheezing. He states he has been using his own inhalers without any relief. He has been afebrile since he came here. Vital signs have been stable. He is saturating well on two liters. Chest x-ray was unrevealing. A CT scan of the chest in January of last year showed a ill-defined 7 mm right upper lobe and 8 mm lingular nodule as well as some granulomatous disease, this was not followed up. The patient does not have outpatient care and he has never had formal PFTs. He denies any fevers, chills, rhinorrhea, congestion, otalgia, or sore throat. He does note cough, congestion, shortness of breath and wheezing as stated. He denies any chest pain, PND, or orthopnea. Denies any nausea, vomiting, diarrhea, constipation, abdominal pain, or urinary complaints. He received IV Solu-Medrol and breathing treatments with some improvement in his symptoms. PAST MEDICAL HISTORY: 1. COPD. 2. Current daily tobacco use. 3. Hypertension. 4. Hyperlipidemia. 5. GERD. PAST SURGICAL HISTORY: Denies. MEDICATIONS: Prior to admission medications reviewed. Current medications reviewed. ALLERGIES: Tetracyclines. SOCIAL HISTORY: He has a history of tobacco and alcohol use. Denies drug use. FAMILY HISTORY: Noncontributory. REVIEW OF SYSTEMS: Negative other than history of present illness. PHYSICAL EXAMINATION: GENERAL: Well-developed and well-nourished male in no acute distress. Awake, alert, and oriented x3. VITAL SIGNS: Temperature 97.7 degrees, pulse 92, blood pressure 150/82, respiratory rate 22, and heart rate 93. HEENT: Normocephalic and atraumatic. Oropharynx is clear. Moist mucosa. NECK: Without lymphadenopathy or JVD. CHEST: Clear, but distant. HEART: Regular rate and rhythm. ABDOMEN: Soft, nontender, and nondistended. EXTREMITIES: No cyanosis or edema. There is some clubbing. ANCILLARY DATA: White count 6.9, hemoglobin 10.7, and platelet count 189. Sodium 145, potassium 3.6, chloride 104, bicarbonate 37, BUN 6, creatinine 0.8, and glucose 87. Calcium 8.3. Total bilirubin 0.5, AST 29, ALT 26, and alkaline phosphatase 48. Troponin 0. Total protein 6.8 and albumin 3.3. Chest x-ray no acute findings. CT of the chest on 01/15/2017 reviewed by myself shows old granulomatous disease in the right upper lobe and lingular nodule. ASSESSMENT: The patient is a 77-year-old male current daily smoker with a history of COPD, alcohol abuse, hypertension and hyperlipidemia presenting for evaluation of shortness of breath likely secondary to an acute exacerbation of his underlying COPD, possibly secondary to an antecedent viral respiratory infection. He is improving with conservative measures alone. The biggest issue is continued tobacco use and lack of outpatient followup. Furthermore, the patient is anemic. He also has evidence of chronic respiratory failure with an elevated bicarbonate. 1. COPD with acute exacerbation. 2. Likely chronic hypercapnic respiratory failure. 3. Current daily tobacco use. 4. Alcohol use. 5. Anemia. 6. Hypertension. 7. Hyperlipidemia. 8. GERD. TREATMENT PLAN: 1. Optimize pulmonary hygiene/mobilize as tolerated. 2. As needed O2 to keep saturations greater than 90%. 3. Continue Advair. 4. The patient should be on a long-acting antimuscarinics prior to discharge. 5. Start [id number] and p.r.n. DuoNebs. 6. Discontinue Solu-Medrol and start prednisone 60 mg p.o. daily (today is day #1). 7. We will get a repeat CT scan of the chest given the patient had right upper lobe and lingular nodules in January of 2017 that need to be followed up. 8. Nicotine patch. 9. Encourage tobacco cessation. 10. Consider workup of anemia. 11. ABG. 12. DVT prophylaxis. 13. Heparin subcutaneous. 14. The patient to have outpatient followup including PFTs and optimization of his inhaler regimen. Dr. Moffett, thank you for allowing me to assist in the care of your patient. If I may be of any assistance in the future, please do not hesitate to ask. Adi Feliciano M.D. DR: DENNISE JOB#: [id number] CC:
[2017-10-08 19:34] VITALS: BP 153/77
[2017-10-09] VITALS (7 sets, daily range): BP systolic 127–165; BP diastolic 69–96
[2017-10-09] MEDS: Albuterol/Ipratropium 3ml neb HHN SCH ×4 (00:13→20:21)
--- NOTE | 2017-10-09 09:30 | Pulmonology Progress Note ---
Assessment/Plan Problems: (1) COPD with acute exacerbation (2) Dyspnea (3) Narcotic dependence (4) Bronchitis Assessment/Plan ASSESSMENT: The patient is a 77-year-old male current daily smoker with a history of COPD, alcohol abuse, hypertension and hyperlipidemia presenting for evaluation of shortness of breath likely secondary to an acute exacerbation of his underlying COPD, possibly secondary to an antecedent viral respiratory infection. He is improving with conservative measures alone. The biggest issue is continued tobacco use and lack of outpatient followup. Furthermore, the patient is anemic. He also has evidence of chronic respiratory failure with an elevated bicarbonate. 1. COPD with acute exacerbation. 2. Likely chronic hypercapnic respiratory failure. 3. Current daily tobacco use. 4. Alcohol use. 5. Anemia. 6. Hypertension. 7. Hyperlipidemia. 8. GERD. 9. Scattered b pulmonary nodules TREATMENT PLAN: 1. Optimize pulmonary hygiene/mobilize as tolerated. 2. Titrate O2 to keep saturations greater than 90%. 3. Continue Advair. 4. The patient should be on a long-acting antimuscarinics prior to discharge. 5. RTC and PRN DuoNebs. 6. Continue Prednisone 60 mg p.o. daily (today is day #2). 7. Repeat CT chest in 6 months to ensure stability of nodules 8. Nicotine patch. 9. Encourage tobacco cessation. 10. Consider workup of anemia. 11. F/U ABG. 12. DVT prophylaxis. 13. Heparin subcutaneous. 14. The patient to have outpatient followup including PFTs and optimization of his inhaler regimen. Subjective Allergies: Coded Allergies: TETRACYCLINE (Verified Allergy, Unknown, 01/07/11) Subjective AFVSS, stable O2 needs + cough, mobilizing somewhat, + SOB, no CP, no F/C Objective Last 24 Hour Vital Signs Date Time Temp Pulse Resp B/P (MAP) Pulse Ox O2 Delivery O2 Flow Rate FiO2 10/09/17 08:00 98.2 96 20 146/81 99 98.2 10/09/17 07:06 Nasal Cannula 2.0 10/09/17 07:06 96 Nasal Cannula 2.0 10/09/17 07:05 85 20 98 Nasal Cannula 2.0 28 10/09/17 06:57 89 20 96 Nasal Cannula 2.0 10/09/17 04:00 97.1 98 19 129/69 99 Room Air 97.1 10/09/17 00:28 97.5 91 20 127/75 99 Room Air 97.5 10/09/17 00:17 94 20 97 Nasal Cannula 2.0 10/09/17 00:16 91 20 95 Nasal Cannula 2.0 10/08/17 21:03 Nasal Cannula 2.0 10/08/17 21:03 96 Nasal Cannula 2.0 10/08/17 21:02 91 20 Nasal Cannula 2.0 10/08/17 20:00 92 20 94 Nasal Cannula 2.0 10/08/17 20:00 91 20 96 Nasal Cannula 2.0 10/08/17 19:34 97.7 98 20 153/77 98 Room Air 97.7 10/08/17 19:30 91 20 Nasal Cannula 2.0 10/08/17 17:38 92 18 98 Nasal Cannula 2.0 10/08/17 17:28 89 20 96 Nasal Cannula 2.0 10/08/17 16:00 Nasal Cannula 2.0 10/08/17 16:00 98.0 93 20 142/76 97 98.0 10/08/17 13:20 85 24 98 Nasal Cannula 2.0 10/08/17 12:00 Nasal Cannula 2.0 10/08/17 12:00 97.2 88 19 158/95 98 97.2 Intake and Output 10/08/17 10/09/17 19:00 07:00 Intake Total 700 ml 100 ml Balance 700 ml 100 ml Intake Oral 700 ml 100 ml # Voids 1 1 General Appearance: no acute distress, cachetic HEENT: normocephalic, atraumatic, anicteric, mucous membranes moist Respiratory/Chest: lungs clear - but distant Cardiovascular: normal peripheral pulses, normal rate, regular rhythm Abdomen: normal bowel sounds, soft, non tender, no organomegaly, non distended Extremities: no cyanosis, no clubbing, no edema Current Medications Medications (Trade) Dose Ordered Sig/[place]guila Route PRN Reason Start Time Stop Time Status Last Admin Dose Admin Albuterol/ Ipratropium (Albuterol/ Ipratropium) 3 ml Q4H PRN HHN Shortness of Breath 10/08/17 01:15 10/13/17 01:14 10/08/17 17:26 Albuterol/ Ipratropium (Albuterol/ Ipratropium) 3 ml Q6HRT HHN 10/08/17 13:00 10/13/17 12:59 10/09/17 06:54 Azithromycin (Zithromax) 250 mg DAILY ORAL 10/08/17 09:00 10/15/17 08:59 10/08/17 10:03 Diphenhydramine HCl (Benadryl) 25 mg Q6H PRN IVP Itching 10/08/17 01:15 11/07/17 01:14 10/08/17 20:17 Heparin Sodium (Porcine) (Heparin 5000 units/ml) 5,000 units EVERY 12 HOURS SUBQ 10/08/17 09:00 11/07/17 08:59 10/08/17 20:19 Pantoprazole (Protonix) 40 mg ACBREAKFAST ORAL 10/08/17 06:30 11/07/17 06:29 10/09/17 06:25 Prednisone (predniSONE) 60 mg DAILY ORAL 10/08/17 09:00 11/07/17 08:59 10/08/17 10:04 Salmeterol Xinafoate/ Fluticasone (Advair 250/50 Diskus) 1 puffs BIDRT INH 10/08/17 18:00 11/07/17 17:59 IZAIAH ZUNIGA M.D. Oct 09, 2017 09:30
[2017-10-09] MEDS: Azithromycin 250mg tab ORAL SCH (09:41)
[2017-10-09] MEDS: Heparin 5000 units/ml inj SUBQ SCH ×2 (09:43→20:37)
[2017-10-09] MEDS: Advair 250/50 Inhaler - 14 dose INH SCH ×2 (10:00→21:32)
[2017-10-09] MEDS: DiphenhydrAMINE 50mg/ml Inj IVP PRN (17:28)
--- NOTE | 2017-10-09 21:38 | General Progress Note ---
Assessment/Plan Status: stable Assessment/Plan 1. Acute chronic obstructive pulmonary disease exacerbation. 2. History of substance abuse. 3. Hypertension. 4. Hyperlipidemia. 5. Gastrointestinal and deep venous thrombosis prophylaxis, the patient is ambulating at this time. 6. Gastrointestinal bleed. Plan: Notes from Pulmonary - Dr Feliciano is reviewed. lanemia workup current medication Subjective ROS Limited/Unobtainable: No Constitutional: Reports: malaise Respiratory: Reports: shortness of breath Allergies: Coded Allergies: TETRACYCLINE (Verified Allergy, Unknown, 01/07/11) Objective Last 24 Hour Vital Signs Date Time Temp Pulse Resp B/P (MAP) Pulse Ox O2 Delivery O2 Flow Rate FiO2 10/09/17 20:30 88 20 98 Nasal Cannula 2.0 10/09/17 20:20 97 Nasal Cannula 2.0 10/09/17 20:20 Nasal Cannula 2.0 10/09/17 20:20 86 20 97 Nasal Cannula 2.0 10/09/17 19:45 97.5 95 18 157/93 97 97.5 10/09/17 16:00 Room Air 10/09/17 16:00 97.9 88 19 155/95 93 97.9 10/09/17 13:20 87 20 99 Room Air 10/09/17 13:12 90 18 92 Room Air 10/09/17 12:00 Room Air 10/09/17 12:00 97.7 87 18 163/96 98 97.7 10/09/17 08:00 98.2 96 20 146/81 99 98.2 10/09/17 08:00 Room Air 10/09/17 07:06 Nasal Cannula 2.0 10/09/17 07:06 96 Nasal Cannula 2.0 10/09/17 07:05 85 20 98 Nasal Cannula 2.0 10/09/17 06:57 89 20 96 Nasal Cannula 2.0 10/09/17 04:00 97.1 98 19 129/69 99 Room Air 97.1 10/09/17 00:28 97.5 91 20 127/75 99 Room Air 97.5 10/09/17 00:17 94 20 97 Nasal Cannula 2.0 10/09/17 00:16 91 20 95 Nasal Cannula 2.0 28 Intake and Output 10/08/17 10/09/17 19:00 07:00 Intake Total 700 ml 100 ml Balance 700 ml 100 ml Intake Oral 700 ml 100 ml # Voids 1 1 Height (Feet): 6 Height (Inches): 2.00 Weight (Pounds): 200 General Appearance: no apparent distress EENT: PERRL/EOMI Neck: supple Cardiovascular: normal rate Respiratory/Chest: rhonchi - bilaterally Abdomen: soft Extremities: non-tender Neurologic: peanut sorter II-XII grossly normal Treasure Moffett MD Oct 09, 2017 21:38
--- NOTE | 2017-10-09 22:44 | Consultation ---
History of Present Illness General Date patient seen: Oct 08, 2017 Chief Complaint: Dyspnea/Respdistress Present Illness HPI 77-year-old male, with a history of chronic obstructive pulmonary disease, alcohol abuse, hypertension, and hyperlipidemia who presents with s cough, congestion, and shortness of breath and wheezing. the pt has been irritable and noncompliance with care e.g. refusing ABG. the pt symptoms consistent with depression however he has poor insight and self medicates with alcohol and opioids. the pt is able to understand and process the info was given to him in regards to his medical condition Allergies: Coded Allergies: TETRACYCLINE (Verified Allergy, Unknown, 01/07/11) Medication History Scheduled Fluticasone/Salmeterol (Advair 250-50 Diskus), 1 PUFF INH BID, (Reported) Scheduled PRN Albuterol Sulfate* (Albuterol Sulfate Mdi*), 2 PUFF INH Q4H PRN for For Cough Oxycodone Hcl* (Oxycodone Hcl*), 30 MG ORAL Q4H PRN for For Pain, (Reported) Patient History History Provided By: Patient, Medical Record, PMD Healthcare decision maker Resuscitation status Full Code Advanced Directive on File No Past Medical/Surgical History Past Medical/Surgical History: (1) [id number] (2) [id number] (3) copd exacerbation (4) Respiratory distress (5) Hypokalemia (6) Acute bronchitis (7) Acute and chronic respiratory failure ([id number]) (8) Acute respiratory failure (9) Constipation (10) Emphysema (11) Back pain (12) CHF (congestive heart failure) (13) Bronchitis (14) ACS (acute coronary syndrome) (15) Cocaine abuse (16) DJD (degenerative joint disease) (17) Pneumonia (18) Acute encephalopathy (19) Chest pain (20) COPD exacerbation (21) Peripheral neuropathy (22) History of cocaine abuse (23) Acute respiratory failure (24) COPD with acute exacerbation (25) Bacteremia (26) Dyspnea (27) Narcotic dependence (28) Bronchitis (29) COPD with acute exacerbation (30) Acute exacerbation of chronic obstructive airways disease (31) Dyspnea (32) Respiratory insufficiency (33) Hypertension (34) CHF (congestive heart failure) (35) Poor compliance (36) Narcotic dependence (37) Chronic back pain (38) Peripheral edema (39) Anemia (40) History of CVA (cerebrovascular accident) Review of Systems Psychiatric: Reports: prior hx, anxiety, depressed feelings, emotional problems Physical Exam General Appearance: no apparent distress, alert Last 24 Hour Vital Signs Date Time Temp Pulse Resp B/P (MAP) Pulse Ox O2 Delivery O2 Flow Rate FiO2 10/09/17 20:30 88 20 98 Nasal Cannula 2.0 28 10/09/17 20:20 97 Nasal Cannula 2.0 28 10/09/17 20:20 Nasal Cannula 2.0 28 10/09/17 20:20 86 20 97 Nasal Cannula 2.0 28 10/09/17 19:45 97.5 95 18 157/93 97 97.5 10/09/17 16:00 Room Air 10/09/17 16:00 97.9 88 19 155/95 93 97.9 10/09/17 13:20 87 20 99 Room Air 10/09/17 13:12 90 18 92 Room Air 10/09/17 12:00 Room Air 10/09/17 12:00 97.7 87 18 163/96 98 97.7 10/09/17 08:00 98.2 96 20 146/81 99 98.2 10/09/17 08:00 Room Air 10/09/17 07:06 Nasal Cannula 2.0 28 10/09/17 07:06 96 Nasal Cannula 2.0 10/09/17 07:05 85 20 98 Nasal Cannula 2.0 28 10/09/17 06:57 89 20 96 Nasal Cannula 2.0 28 10/09/17 04:00 97.1 98 19 129/69 99 Room Air 97.1 10/09/17 00:28 97.5 91 20 127/75 99 Room Air 97.5 10/09/17 00:17 94 20 97 Nasal Cannula 2.0 28 10/09/17 00:16 91 20 95 Nasal Cannula 2.0 28 Intake and Output 10/08/17 10/09/17 19:00 07:00 Intake Total 700 ml 100 ml Balance 700 ml 100 ml Intake Oral 700 ml 100 ml # Voids 1 1 Height (Feet): 6 Height (Inches): 2.00 Weight (Pounds): 200 Medications Current Medications Medications (Trade) Dose Ordered Sig/Aguila Route PRN Reason Start Time Stop Time Status Last Admin Dose Admin Albuterol/ Ipratropium (Albuterol/ Ipratropium) 3 ml Q4H PRN HHN Shortness of Breath 10/08/17 01:15 10/13/17 01:14 10/08/17 17:26 Albuterol/ Ipratropium (Albuterol/ Ipratropium) 3 ml Q6HRT HHN 10/08/17 13:00 10/13/17 12:59 10/09/17 20:21 Azithromycin (Zithromax) 250 mg DAILY ORAL 10/08/17 09:00 10/15/17 08:59 10/09/17 09:41 Diphenhydramine HCl (Benadryl) 25 mg Q6H PRN IVP Itching 10/08/17 01:15 11/07/17 01:14 10/09/17 17:28 Heparin Sodium (Porcine) (Heparin 5000 units/ml) 5,000 units EVERY 12 HOURS SUBQ 10/08/17 09:00 11/07/17 08:59 10/09/17 20:37 Pantoprazole (Protonix) 40 mg ACBREAKFAST ORAL 10/08/17 06:30 11/07/17 06:29 10/09/17 06:25 Prednisone (predniSONE) 60 mg DAILY ORAL 10/08/17 09:00 11/07/17 08:59 10/09/17 09:42 Salmeterol Xinafoate/ Fluticasone (Advair 250/50 Diskus) 1 puffs BIDRT INH 10/08/17 18:00 11/07/17 17:59 10/09/17 21:32 Assessment/Plan Status: stable, progressing Assessment/Plan substance use d/o alcohol use mdd anxiety the pt refused Kayla Root M.D. Oct 09, 2017 22:44
[2017-10-10 00:01] VITALS: BP 144/89
[2017-10-10] MEDS: Albuterol/Ipratropium 3ml neb HHN SCH ×4 (01:44→19:48)
[2017-10-10 04:20] VITALS: BP 147/87
[2017-10-10 08:47] VITALS: BP 150/84
[2017-10-10] MEDS: Azithromycin 250mg tab ORAL SCH (08:59)
[2017-10-10] MEDS: Heparin 5000 units/ml inj SUBQ SCH ×2 (09:02→20:55)
--- NOTE | 2017-10-10 09:16 | Pulmonology Progress Note ---
Assessment/Plan Problems: (1) COPD with acute exacerbation (2) Dyspnea (3) Narcotic dependence (4) Bronchitis Assessment/Plan ASSESSMENT: The patient is a 77-year-old male current daily smoker with a history of COPD, alcohol abuse, hypertension and hyperlipidemia presenting for evaluation of shortness of breath likely secondary to an acute exacerbation of his underlying COPD, possibly secondary to an antecedent viral respiratory infection. He is improving with conservative measures alone. The biggest issue is continued tobacco use and lack of outpatient followup. Furthermore, the patient is anemic. He also has evidence of chronic respiratory failure with an elevated bicarbonate. 1. COPD with acute exacerbation. 2. Likely chronic hypercapnic respiratory failure. 3. Current daily tobacco use. 4. Alcohol use. 5. Anemia. 6. Hypertension. 7. Hyperlipidemia. 8. GERD. 9. Scattered b pulmonary nodules TREATMENT PLAN: 1. Optimize pulmonary hygiene/mobilize as tolerated. 2. Titrate O2 to keep saturations greater than 90%. 3. Continue Advair. 4. Start Spiriva 5. RTC and PRN DuoNebs. 6. Continue Prednisone 60 mg p.o. daily (today is day #3). 7. Repeat CT chest in 6 months to ensure stability of nodules 8. Nicotine patch. 9. Encourage tobacco cessation. 10. Consider workup of anemia. 11. F/U ABG. 12. DVT prophylaxis. 13. Heparin subcutaneous. 14. The patient to have outpatient followup including PFTs and optimization of his inhaler regimen. Subjective Allergies: Coded Allergies: TETRACYCLINE (Verified Allergy, Unknown, 01/07/11) Subjective AFVSS, now on RA less cough, mobilizing somewhat, + SOB, no CP, no F/C Objective Last 24 Hour Vital Signs Date Time Temp Pulse Resp B/P (MAP) Pulse Ox O2 Delivery O2 Flow Rate FiO2 10/10/17 09:13 98 20 98 Nasal Cannula 2.0 28 10/10/17 08:56 Nasal Cannula 2.0 28 10/10/17 08:54 91 Nasal Cannula 28 10/10/17 08:52 90 25 91 Room Air 21 10/10/17 08:47 97.0 91 16 150/84 93 Room Air 97.0 10/10/17 04:20 97.9 84 18 147/87 100 97.9 10/10/17 01:54 80 20 98 Nasal Cannula 2.0 28 10/10/17 01:44 83 20 92 Room Air 21 10/10/17 00:01 97.7 82 19 144/89 96 Room Air 97.7 10/09/17 23:56 97.3 90 20 165/90 96 97.3 10/09/17 20:30 88 20 98 Nasal Cannula 2.0 10/09/17 20:20 97 Nasal Cannula 2.0 10/09/17 20:20 Nasal Cannula 2.0 10/09/17 20:20 86 20 97 Nasal Cannula 2.0 10/09/17 19:45 97.5 95 18 157/93 97 97.5 10/09/17 16:00 Room Air 10/09/17 16:00 97.9 88 19 155/95 93 97.9 10/09/17 13:20 87 20 99 Room Air 10/09/17 13:12 90 18 92 Room Air 10/09/17 12:00 Room Air 10/09/17 12:00 97.7 87 18 163/96 98 97.7 Intake and Output 10/09/17 10/10/17 19:00 07:00 Intake Total 950 ml 1200 ml Balance 950 ml 1200 ml Intake Oral 950 ml 1200 ml # Voids 4 3 General Appearance: WD/WN, no acute distress HEENT: normocephalic, atraumatic, anicteric, mucous membranes moist Respiratory/Chest: chest wall non-tender, lungs clear - but distant, normal breath sounds, no respiratory distress Cardiovascular: normal peripheral pulses, normal rate, regular rhythm Abdomen: normal bowel sounds, soft, non tender, no organomegaly, non distended , no mass Extremities: no cyanosis, no clubbing, no edema Microbiology Date/Time Source Procedure Growth Status 10/08/17 05:30 Nasal Nares MRSA Culture - Final NO METHICILLIN RESISTANT STAPH AUREUS... 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 Current Medications Medications (Trade) Dose Ordered Sig/Aguila Route PRN Reason Start Time Stop Time Status Last Admin Dose Admin Albuterol/ Ipratropium (Albuterol/ Ipratropium) 3 ml Q4H PRN HHN Shortness of Breath 10/08/17 01:15 10/13/17 01:14 10/08/17 17:26 Albuterol/ Ipratropium (Albuterol/ Ipratropium) 3 ml Q6HRT HHN 10/08/17 13:00 10/13/17 12:59 10/10/17 08:50 Azithromycin (Zithromax) 250 mg DAILY ORAL 10/08/17 09:00 10/15/17 08:59 10/10/17 08:59 Diphenhydramine HCl (Benadryl) 25 mg Q6H PRN IVP Itching 10/08/17 01:15 11/07/17 01:14 10/09/17 17:28 Heparin Sodium (Porcine) (Heparin 5000 units/ml) 5,000 units EVERY 12 HOURS SUBQ 10/08/17 09:00 11/07/17 08:59 10/10/17 09:02 Pantoprazole (Protonix) 40 mg ACBREAKFAST ORAL 10/08/17 06:30 11/07/17 06:29 10/10/17 06:03 Prednisone (predniSONE) 60 mg DAILY ORAL 10/08/17 09:00 11/07/17 08:59 10/10/17 09:00 Salmeterol Xinafoate/ Fluticasone (Advair 250/50 Diskus) 1 puffs BIDRT INH 10/08/17 18:00 11/07/17 17:59 10/09/17 21:32 IZAIAH ZUNIGA M.D. Oct 10, 2017 09:16
[2017-10-10] MEDS: Advair 250/50 Inhaler - 14 dose INH SCH ×2 (10:00→19:46)
[2017-10-10 12:29] VITALS: BP 153/86
--- NOTE | 2017-10-10 14:56 | General Progress Note ---
Assessment/Plan Assessment/Plan substance use d/o alcohol use mdd anxiety the pt is guarded and uncooperative at times Subjective Date patient seen: Oct 10, 2017 Neurologic/Psychiatric: Reports: anxiety, depressed, emotional problems Allergies: Coded Allergies: TETRACYCLINE (Verified Allergy, Unknown, 01/07/11) Objective Last 24 Hour Vital Signs Date Time Temp Pulse Resp B/P (MAP) Pulse Ox O2 Delivery O2 Flow Rate FiO2 10/10/17 14:20 83 20 98 Nasal Cannula 2.0 28 10/10/17 14:09 88 25 92 Room Air 21 10/10/17 12:29 97.5 85 16 153/86 98 Room Air 97.5 10/10/17 09:13 98 20 98 Nasal Cannula 2.0 28 10/10/17 08:56 Nasal Cannula 2.0 28 10/10/17 08:54 91 Nasal Cannula 28 10/10/17 08:52 90 25 91 Room Air 10/10/17 08:47 97.0 91 16 150/84 93 Room Air 97.0 10/10/17 04:20 97.9 84 18 147/87 100 97.9 10/10/17 01:54 80 20 98 Nasal Cannula 2.0 28 10/10/17 01:44 83 20 92 Room Air 10/10/17 00:01 97.7 82 19 144/89 96 Room Air 97.7 10/09/17 23:56 97.3 90 20 165/90 96 97.3 10/09/17 20:30 88 20 98 Nasal Cannula 2.0 28 10/09/17 20:20 97 Nasal Cannula 2.0 10/09/17 20:20 Nasal Cannula 2.0 10/09/17 20:20 86 20 97 Nasal Cannula 2.0 10/09/17 19:45 97.5 95 18 157/93 97 97.5 10/09/17 16:00 Room Air 10/09/17 16:00 97.9 88 19 155/95 93 97.9 Intake and Output 10/09/17 10/10/17 19:00 07:00 Intake Total 950 ml 1200 ml Balance 950 ml 1200 ml Intake Oral 950 ml 1200 ml # Voids 4 3 Height (Feet): 6 Height (Inches): 2.00 Weight (Pounds): 200 General Appearance: no apparent distress, alert Neurologic: oriented x 3, responsive, depressed affect Kayla Christensen M.D. Oct 10, 2017 14:56
--- NOTE | 2017-10-10 15:39 | Consultation ---
History of Present Illness General Date patient seen: Oct 10, 2017 Time patient seen: 15:26 Chief Complaint: Dyspnea/Respdistress Present Illness HPI 77 y/o M with hx of COPD, tobacco abuse (daily smoker), HTN, CVA, substance abuse (cocaine)/narcotic dependance, alcohol abuse, HLD, GERD presents to ED on 10/07 with several days of cough, congestion, wheezing and SOB with no relief with rescue inhalers Denied fevers, chills, rhinorrhea, congestion, otalgia, or sore throat, CP,a bd pain, urinary complains, sick contacts, n/v/d upon admission. Patient noted with rash and treated empirically for scabies. Allergies: Coded Allergies: TETRACYCLINE (Verified Allergy, Unknown, 01/07/11) Medication History Scheduled Fluticasone/Salmeterol (Advair 250-50 Diskus), 1 PUFF INH BID, (Reported) Scheduled PRN Albuterol Sulfate* (Albuterol Sulfate Mdi*), 2 PUFF INH Q4H PRN for For Cough Oxycodone Hcl* (Oxycodone Hcl*), 30 MG ORAL Q4H PRN for For Pain, (Reported) Patient History Healthcare decision maker Resuscitation status Full Code Advanced Directive on File No Patient History Narrative Pmhx: as above Shx: He has a history of tobacco and alcohol use. Denies drug use. Fhx: non contributory Review of Systems All Other Systems: negative except mentioned in HPI Physical Exam Physical Exam Narrative HEAD AND NECK: Atraumatic and normocephalic. CHEST: Diffuse bronchial breathing sounds. Negative for wheezing. Negative for crackles. HEART: S1 and S2. Regular rate and rhythm. Negative for S3. Negative for S4. ABDOMEN: Soft. No organomegaly. MUSCULOSKELETAL: Negative for any gross lateralized asymmetric motor deficit. Skin: papular crusted lesions on arms, back, abdomen NEUROLOGY: The patient is awake, alert, and oriented x3. Mood and affect is anxious. Last 24 Hour Vital Signs Date Time Temp Pulse Resp B/P (MAP) Pulse Ox O2 Delivery O2 Flow Rate FiO2 10/10/17 14:20 83 20 98 Nasal Cannula 2.0 28 10/10/17 14:09 88 25 92 Room Air 21 10/10/17 12:29 97.5 85 16 153/86 98 Room Air 97.5 10/10/17 09:13 98 20 98 Nasal Cannula 2.0 28 10/10/17 08:56 Nasal Cannula 2.0 28 10/10/17 08:54 91 Nasal Cannula 28 10/10/17 08:52 90 25 91 Room Air 21 10/10/17 08:47 97.0 91 16 150/84 93 Room Air 97.0 10/10/17 04:20 97.9 84 18 147/87 100 97.9 10/10/17 01:54 80 20 98 Nasal Cannula 2.0 10/10/17 01:44 83 20 92 Room Air 10/10/17 00:01 97.7 82 19 144/89 96 Room Air 97.7 10/09/17 23:56 97.3 90 20 165/90 96 97.3 10/09/17 20:30 88 20 98 Nasal Cannula 2.0 10/09/17 20:20 97 Nasal Cannula 2.0 10/09/17 20:20 Nasal Cannula 2.0 10/09/17 20:20 86 20 97 Nasal Cannula 2.0 10/09/17 19:45 97.5 95 18 157/93 97 97.5 10/09/17 16:00 Room Air 10/09/17 16:00 97.9 88 19 155/95 93 97.9 Intake and Output 10/09/17 10/10/17 19:00 07:00 Intake Total 950 ml 1200 ml Balance 950 ml 1200 ml Intake Oral 950 ml 1200 ml # Voids 4 3 Height (Feet): 6 Height (Inches): 2.00 Weight (Pounds): 200 Medications Current Medications Medications (Trade) Dose Ordered Sig/Aguila Route PRN Reason Start Time Stop Time Status Last Admin Dose Admin Albuterol/ Ipratropium (Albuterol/ Ipratropium) 3 ml Q4H PRN HHN Shortness of Breath 10/08/17 01:15 10/13/17 01:14 10/08/17 17:26 Albuterol/ Ipratropium (Albuterol/ Ipratropium) 3 ml Q6HRT HHN 10/08/17 13:00 10/13/17 12:59 10/10/17 14:02 Azithromycin (Zithromax) 250 mg DAILY ORAL 3/28/18 09:00 10/15/17 08:59 10/10/17 08:59 Diphenhydramine HCl (Benadryl) 25 mg Q6H PRN IVP Itching 10/08/17 01:15 11/07/17 01:14 10/09/17 17:28 Heparin Sodium (Porcine) (Heparin 5000 units/ml) 5,000 units EVERY 12 HOURS SUBQ 10/08/17 09:00 11/07/17 08:59 10/10/17 09:02 Pantoprazole (Protonix) 40 mg ACBREAKFAST ORAL 10/08/17 06:30 11/07/17 06:29 10/10/17 06:03 Prednisone (predniSONE) 60 mg DAILY ORAL 10/08/17 09:00 11/07/17 08:59 10/10/17 09:00 Salmeterol Xinafoate/ Fluticasone (Advair 250/50 Diskus) 1 puffs BIDRT INH 10/08/17 18:00 11/07/17 17:59 10/09/17 21:32 Tiotropium [place] (Spiriva Inhaler) 1 puff DAILY INH 10/11/17 09:00 11/10/17 08:59 Assessment/Plan Assessment/Plan Abx: permethrin cream x1 10/09 Azithromycin 10/08- Assesment: COPD exacerbation -CXR: Right basilar atelectasis and/or scarring. No acute process otherwise -CT chest: Scattered pulmonary parenchymal nodules and irregular opacities, as described, some stable since prior study of 01/15/2017, others new. Other lesionspreviously demonstrated on the earlier study are no longer evident. Findings most likely represent recent or old postinflammatory changes, but neoplasm as etiology of any of these is not excludable. Recommend short interval follow-up CT in 6 months. Evidence old granulomatous disease in the right lung, right pulmonary hilar lymph nodes, and in the spleen. No acute consolidation or pleural fluid. Incidental finding of minimal degenerative thoracic spondylosis, bilateral gynecomastia Afebrile, no leukocytosis Rash, possible scabies COPD tobacco abuse (daily smoker) HTN CVA substance abuse (cocaine)/narcotic dependance alcohol abuse HLD GERD VRE colonized Plan: -Continue PO azithromycin #3/5 -10/09 Permethrin cream x1 -Give one dose of Ivermectin today and repeat in 1 week -check influenza sc -Monitor CBC/BMP, temperatures -aspiration precautions -contact isolation Thank you for this consultation. Will continue to follow along with you. Discussed with NICKOLAS. Isabel Schultz M.D. Oct 10, 2017 15:39
[2017-10-10 16:00] VITALS: BP 159/97
--- NOTE | 2017-10-10 17:50 | Internal Med Progress Note ---
Subjective Date of Service: Oct 10, 2017 Physician Name Kyrie Lake Attending Physician Treasure Moffett MD Current Medications Medications (Trade) Dose Ordered Sig/Aguila Route PRN Reason Start Time Stop Time Status Last Admin Dose Admin Albuterol/ Ipratropium (Albuterol/ Ipratropium) 3 ml Q4H PRN HHN Shortness of Breath 10/08/17 01:15 10/13/17 01:14 10/08/17 17:26 Albuterol/ Ipratropium (Albuterol/ Ipratropium) 3 ml Q6HRT HHN 10/08/17 13:00 10/13/17 12:59 10/10/17 14:02 Azithromycin (Zithromax) 250 mg DAILY ORAL 10/08/17 09:00 10/15/17 08:59 10/10/17 08:59 Diphenhydramine HCl (Benadryl) 25 mg Q6H PRN IVP Itching 10/08/17 01:15 11/07/17 01:14 10/09/17 17:28 Heparin Sodium (Porcine) (Heparin 5000 units/ml) 5,000 units EVERY 12 HOURS SUBQ 10/08/17 09:00 11/07/17 08:59 10/10/17 09:02 Pantoprazole (Protonix) 40 mg ACBREAKFAST ORAL 10/08/17 06:30 11/07/17 06:29 10/10/17 06:03 Prednisone (predniSONE) 60 mg DAILY ORAL 10/08/17 09:00 11/07/17 08:59 10/10/17 09:00 Salmeterol Xinafoate/ Fluticasone (Advair 250/50 Diskus) 1 puffs BIDRT INH 10/08/17 18:00 11/07/17 17:59 10/09/17 21:32 Tiotropium [place] (Spiriva Inhaler) 1 puff DAILY INH 10/11/17 09:00 11/10/17 08:59 Allergies: Coded Allergies: TETRACYCLINE (Verified Allergy, Unknown, 01/07/11) ROS Limited/Unobtainable: No Constitutional: Reports: no symptoms HEENT: Reports: no symptoms Cardiovascular: Reports: no symptoms Respiratory: Reports: shortness of breath Gastrointestinal/Abdominal: Reports: no symptoms Genitourinary: Reports: no symptoms Neurologic/Psychiatric: Reports: no symptoms Subjective 77 YO M admitted with shortness of breath. Now COPD exacerbation. Cover for Int Med-Dr Moffett Objective Last Vital Signs Date Time Temp Pulse Resp B/P (MAP) Pulse Ox O2 Delivery O2 Flow Rate FiO2 10/10/17 16:00 97.5 89 18 159/97 98 97.5 10/10/17 14:20 Nasal Cannula 2.0 28 General Appearance: WD/WN, no apparent distress, alert EENT: PERRL/EOMI, normal ENT inspection, TMs normal Neck: non-tender, normal alignment, supple Cardiovascular: normal peripheral pulses, normal rate, regular rhythm, no gallop/murmur, no JVD Respiratory/Chest: respiratory distress, crackles/rales, rhonchi - bilaterally , expiratory wheezing Abdomen: normal bowel sounds, non tender, soft, no organomegaly, no mass Extremities: normal range of motion, non-tender 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 See pulmonary note. (6) Tobacco dependence (7) Cocaine abuse (8) Bronchitis Assessment & Plan: Continue azithromycin KYRIE LAKE Oct 10, 2017 17:50
[2017-10-10 20:00] VITALS: BP 153/90
[2017-10-11] VITALS: BP 133/67
[2017-10-11] MEDS: Albuterol/Ipratropium 3ml neb HHN SCH ×5 (01:00→21:04)
[2017-10-11 04:00] VITALS: BP 126/59
[2017-10-11 08:00] VITALS: BP 134/79
[2017-10-11 09:07] LABS: BASOPHILS % (AUTO) 0.2 % (0.0-2.0); HEMATOCRIT 32.1 % (42.0-52.0); LYMPHOCYTES % (AUTO) 18.4 % (20.0-45.0); MEAN CORPUSCULAR VOLUME 82 FL (80-99); NEUTROPHILS % (AUTO) 68.3 % (45.0-75.0); PLATELET COUNT 169 K/UL (150-450); RED BLOOD COUNT 3.93 M/UL (4.70-6.10); RED CELL DISTRIBUTION WIDTH 17.9 % (11.6-14.8); WHITE BLOOD COUNT 6.9 K/UL (4.8-10.8)
[2017-10-11 09:28] LABS: ANION GAP 3 mmol/L (5-15); BLOOD UREA NITROGEN 12 mg/dL (7-18); CALCIUM 8.4 MG/DL (8.5-10.1); CARBON DIOXIDE 37 MMOL/L (21-32); CHLORIDE 104 MMOL/L (98-107); CREATININE 0.8 MG/DL (0.55-1.30); POTASSIUM 3.7 MMOL/L (3.5-5.1); SODIUM 144 MMOL/L (136-145)
--- NOTE | 2017-10-11 09:43 | Pulmonology Progress Note ---
Assessment/Plan Assessment/Plan ASSESSMENT Acute COPD exacerbation. Chronic hypercapnic respiratory failure. tobacco abuse with dependency polysubstance abuse: ETOH , cocaine opioid dependency Dysphagia Anemia. Hypertension. GERD. Bilateral pulmonary nodules(scattered) homeless [facility] floor O2 titrate to keep pulse ox above 90% pulm toilet inhalers: Advair and Spiriva , scripts on d /c and encourage compliance HHN ATC and prn oral steroids with slow tapering empiric abx influenza screen negative ID follows fup with ABG( patient declined twice) DVT prophylaxis swallow eval on Friday esophageal X ray today PPI CT chest noted Repeat CT chest in 6 months to ensure stability of nodules Nicotine patch. summer counselor on smoking cessation BP monitoring, currently not on any a/HTN meds workup of anemia, monitor HH outpatient followup with PFTs and optimization of his inhaler regimen s/p Rx with Permethrin 10/09 case discussed and evaluated by supervising physician Subjective Allergies: Coded Allergies: TETRACYCLINE (Verified Allergy, Unknown, 01/07/11) Subjective on O2 via NC no signs of resp distress, stable pulse ox reports difficulties with swallowing and epigastric pain, intermittent afebrile no wheezing, still some chest tightness Objective Last 24 Hour Vital Signs Date Time Temp Pulse Resp B/P (MAP) Pulse Ox O2 Delivery O2 Flow Rate FiO2 10/11/17 09:17 86 20 99 Nasal Cannula 2.0 28 10/11/17 08:59 99 Nasal Cannula 2.0 28 10/11/17 08:59 Nasal Cannula 2.0 28 10/11/17 08:58 69 18 99 Nasal Cannula 2.0 28 10/11/17 08:00 96.8 72 18 134/79 98 96.8 10/11/17 04:00 97.0 68 18 126/59 97.0 10/11/17 01:24 86 20 99 Nasal Cannula 2.0 28 10/11/17 01:04 82 22 96 Nasal Cannula 2.0 28 10/11/17 00:00 97.2 76 18 133/67 100 97.2 10/10/17 20:00 97.5 84 20 153/90 98 97.5 10/10/17 19:21 87 22 100 Nasal Cannula 2.0 28 10/10/17 19:08 76 24 98 Nasal Cannula 2.0 28 10/10/17 19:00 98 Nasal Cannula 2.0 28 10/10/17 19:00 Nasal Cannula 2.0 28 10/10/17 16:00 97.5 89 18 159/97 98 97.5 10/10/17 14:20 83 20 98 Nasal Cannula 2.0 28 10/10/17 14:09 88 25 92 Room Air 21 10/10/17 12:29 97.5 85 16 153/86 98 Room Air 97.5 Intake and Output 10/10/17 10/11/17 19:00 07:00 Intake Total 1070 ml 480 ml Balance 1070 ml 480 ml Intake Oral 1070 ml 480 ml # Voids 2 2 # Bowel Movements 2 General Appearance: no acute distress HEENT: normocephalic, atraumatic, anicteric, mucous membranes moist, other - O2 via NC Respiratory/Chest: no respiratory distress, no accessory muscle use, decreased breath sounds Cardiovascular: normal peripheral pulses, normal rate, regular rhythm, no JVD Abdomen: normal bowel sounds, soft, non tender, non distended Extremities: no edema Neurologic/Psychiatric: no motor/sensory deficits, alert, oriented x 3, responsive Musculoskeletal: normal muscle bulk Microbiology Date/Time Source Procedure Growth Status 10/10/17 21:15 Nasopharynx Influenza Types A,B Antigen (ADWOA) - Final Complete Laboratory Tests 10/11/17 07:45: White Blood Count 6.9, Red Blood Count 3.93L, Hemoglobin 10.0L, Hematocrit 32.1L , Mean Corpuscular Volume 82, Mean Corpuscular Hemoglobin 25.4L, Mean Corpuscular Hemoglobin Concent 31.1L, Red Cell Distribution Width 17.9H, Platelet Count 169, Mean Platelet Volume 7.8, Neutrophils (%) (Auto) 68.3, Lymphocytes (%) (Auto) 18.4L, Monocytes (%) (Auto) 13.0H, Eosinophils (%) (Auto ) 0.0, Basophils (%) (Auto) 0.2, Sodium Level [Pending], Potassium Level [ Pending], Chloride Level [Pending], Carbon Dioxide Level [Pending], Blood Urea Nitrogen [Pending], Creatinine [Pending], Estimat Glomerular Filtration Rate [ Pending], Glucose Level [Pending], Calcium Level [Pending] Current Medications Medications (Trade) Dose Ordered Sig/Aguila Route PRN Reason Start Time Stop Time Status Last Admin Dose Admin Albuterol/ Ipratropium (Albuterol/ Ipratropium) 3 ml Q4H PRN HHN Shortness of Breath 10/08/17 01:15 10/13/17 01:14 10/08/17 17:26 Albuterol/ Ipratropium (Albuterol/ Ipratropium) 3 ml Q6HRT HHN 10/08/17 13:00 10/13/17 12:59 10/11/17 08:57 Azithromycin (Zithromax) 250 mg DAILY ORAL 10/08/17 09:00 10/15/17 08:59 10/10/17 08:59 Diphenhydramine HCl (Benadryl) 25 mg Q6H PRN IVP Itching 10/08/17 01:15 11/07/17 01:14 10/09/17 17:28 Heparin Sodium (Porcine) (Heparin 5000 units/ml) 5,000 units EVERY 12 HOURS SUBQ 10/08/17 09:00 11/07/17 08:59 10/10/17 20:55 Pantoprazole (Protonix) 40 mg ACBREAKFAST ORAL 10/08/17 06:30 11/07/17 06:29 10/11/17 06:17 Prednisone (predniSONE) 60 mg DAILY ORAL 10/08/17 09:00 11/07/17 08:59 10/10/17 09:00 Salmeterol Xinafoate/ Fluticasone (Advair 250/50 Diskus) 1 puffs BIDRT INH 10/08/17 18:00 11/07/17 17:59 10/10/17 19:46 Tiotropium [place] (Spiriva Inhaler) 1 puff DAILY INH 10/11/17 09:00 11/10/17 08:59 Dread (Yasmani)Mariana NP Oct 11, 2017 09:43
[2017-10-11] MEDS: Azithromycin 250mg tab ORAL SCH (09:59)
[2017-10-11] MEDS ORDERED: Albuterol/Ipratropium 3ml neb HHN PRN (10:00)
[2017-10-11] MEDS: Heparin 5000 units/ml inj SUBQ SCH ×2 (10:01→20:38)
[2017-10-11] MEDS: Advair 250/50 Inhaler - 14 dose INH SCH ×2 (10:33→21:10)
[2017-10-11 11:25] LABS: FERRITIN 16 NG/ML (8-388)
[2017-10-11 11:36] LABS: % IRON SATURATION 5 % (15-50); IRON 20 ug/dL (50-175); TOTAL IRON BINDING CAPACITY 427 ug/dL (250-450)
[2017-10-11 12:00] VITALS: BP 131/64
--- NOTE | 2017-10-11 14:14 | Internal Med Progress Note ---
Subjective Date of Service: Oct 11, 2017 Physician Name Connell,Mone Attending Physician Treasure Moffett MD Current Medications Medications (Trade) Dose Ordered Sig/Aguila Route PRN Reason Start Time Stop Time Status Last Admin Dose Admin Albuterol/ Ipratropium (Albuterol/ Ipratropium) 3 ml Q4H PRN HHN Shortness of Breath 10/11/17 10:00 10/16/17 09:59 Albuterol/ Ipratropium (Albuterol/ Ipratropium) 3 ml Q6HRT HHN 10/11/17 13:00 10/16/17 12:59 10/11/17 13:18 Azithromycin (Zithromax) 250 mg DAILY ORAL 10/08/17 09:00 10/15/17 08:59 10/11/17 09:59 Diphenhydramine HCl (Benadryl) 25 mg Q6H PRN IVP Itching 10/08/17 01:15 11/07/17 01:14 10/09/17 17:28 Heparin Sodium (Porcine) (Heparin 5000 units/ml) 5,000 units EVERY 12 HOURS SUBQ 10/08/17 09:00 11/07/17 08:59 10/11/17 10:01 Nicotine (Nicoderm) 1 patch Q24H TDERMAL 10/11/17 11:00 11/10/17 10:59 10/11/17 10:01 Pantoprazole (Protonix) 40 mg ACBREAKFAST ORAL 10/08/17 06:30 11/07/17 06:29 10/11/17 06:17 Prednisone (predniSONE) 60 mg DAILY ORAL 10/08/17 09:00 11/07/17 08:59 10/11/17 10:00 Salmeterol Xinafoate/ Fluticasone (Advair 250/50 Diskus) 1 puffs BIDRT INH 10/08/17 18:00 11/07/17 17:59 10/11/17 10:33 Tiotropium [place] (Spiriva Inhaler) 1 puff DAILY INH 10/11/17 09:00 11/10/17 08:59 10/11/17 10:33 Allergies: Coded Allergies: TETRACYCLINE (Verified Allergy, Unknown, 01/07/11) ROS Limited/Unobtainable: No Constitutional: Reports: no symptoms HEENT: Reports: no symptoms Cardiovascular: Reports: no symptoms Respiratory: Reports: shortness of breath, wheezing Gastrointestinal/Abdominal: Reports: no symptoms Genitourinary: Reports: no symptoms Neurologic/Psychiatric: Reports: no symptoms Subjective 77 YO M admitted with shortness of breath. Now COPD exacerbation. Cover for Int Oliver-Dr Moffett Objective Last Vital Signs Date Time Temp Pulse Resp B/P (MAP) Pulse Ox O2 Delivery O2 Flow Rate FiO2 10/11/17 13:27 80 20 99 Nasal Cannula 1.0 24 10/11/17 12:00 97.9 131/64 97.9 Laboratory Tests Test 10/11/17 07:45 White Blood Count 6.9 K/UL (4.8-10.8) Red Blood Count 3.93 M/UL (4.70-6.10) L Hemoglobin 10.0 G/DL (14.2-18.0) L Hematocrit 32.1 % (42.0-52.0) L Mean Corpuscular Volume 82 FL (80-99) Mean Corpuscular Hemoglobin 25.4 PG (27.0-31.0) L Mean Corpuscular Hemoglobin Concent 31.1 G/DL (32.0-36.0) L Red Cell Distribution Width 17.9 % (11.6-14.8) H Platelet Count 169 K/UL (150-450) Mean Platelet Volume 7.8 FL (6.5-10.1) Neutrophils (%) (Auto) 68.3 % (45.0-75.0) Lymphocytes (%) (Auto) 18.4 % (20.0-45.0) L Monocytes (%) (Auto) 13.0 % (1.0-10.0) H Eosinophils (%) (Auto) 0.0 % (0.0-3.0) Basophils (%) (Auto) 0.2 % (0.0-2.0) Sodium Level 144 MMOL/L (136-145) Potassium Level 3.7 MMOL/L (3.5-5.1) Chloride Level 104 MMOL/L (98-107) Carbon Dioxide Level 37 MMOL/L (21-32) H Anion Gap 3 mmol/L (5-15) L Blood Urea Nitrogen 12 mg/dL (7-18) Creatinine 0.8 MG/DL (0.55-1.30) Estimat Glomerular Filtration Rate mL/min (>60) Glucose Level 100 MG/DL (74-106) Calcium Level 8.4 MG/DL (8.5-10.1) L Iron Level 20 ug/dL (50-175) L Total Iron Binding Capacity 427 ug/dL (250-450) Percent Iron Saturation 5 % (15-50) L Unsaturated Iron Binding 407 ug/dL (112-346) H Ferritin 16 NG/ML (8-388) Vitamin B12 Level 287 PG/ML (193-986) Folate 11.9 NG/ML (8.6-58.9) Microbiology Date/Time Source Procedure Growth Status 10/10/17 21:15 Nasopharynx Influenza Types A,B Antigen (ADWOA) - Final Complete Intake and Output 10/10/17 10/11/17 19:00 07:00 Intake Total 1070 ml 480 ml Balance 1070 ml 480 ml Intake Oral 1070 ml 480 ml # Voids 2 2 # Bowel Movements 2 Objective General Appearance: WD/WN, no apparent distress, alert EENT: PERRL/EOMI, normal ENT inspection, TMs normal Neck: non-tender, normal alignment, supple Cardiovascular: normal peripheral pulses, normal rate, regular rhythm, no gallop/murmur, no JVD Respiratory/Chest: respiratory distress, crackles/rales, rhonchi - bilaterally , expiratory wheezing Abdomen: normal bowel sounds, non tender, soft, no organomegaly, no mass Extremities: normal range of motion, non-tender Neurologic: girl friday II-XII grossly normal, no motor/sensory deficits Skin: normal pigmentation, warm/dry Assessment/Plan Problem List: (1) Cerebral vascular disease (2) HTN (hypertension) (3) Hypercholesteremia (4) Dyspnea (5) COPD with acute exacerbation Assessment & Plan: Continue spiriva, advair and prednisone. See pulmonary note. (6) Tobacco dependence (7) Cocaine abuse (8) Bronchitis Assessment & Plan: Continue azithromycin Status: MONE Hu Oct 11, 2017 14:14
[2017-10-11 16:00] VITALS: BP 149/93
--- NOTE | 2017-10-11 19:48 | Infectious Diseases Prog Note ---
Assessment/Plan Assessment/Plan Assesment: COPD exacerbation -CXR: Right basilar atelectasis and/or scarring. No acute process otherwise -CT chest: Scattered pulmonary parenchymal nodules and irregular opacities, as described, some stable since prior study of 01/15/2017, others new. Other lesionspreviously demonstrated on the earlier study are no longer evident. Findings most likely represent recent or old postinflammatory changes, but neoplasm as etiology of any of these is not excludable. Recommend short interval follow-up CT in 6 months. Evidence old granulomatous disease in the right lung, right pulmonary hilar lymph nodes, and in the spleen. No acute consolidation or pleural fluid. Incidental finding of minimal degenerative thoracic spondylosis, bilateral gynecomastia Afebrile, no leukocytosis Rash, possible scabies COPD tobacco abuse (daily smoker) HTN CVA substance abuse (cocaine)/narcotic dependance alcohol abuse HLD GERD VRE colonized Plan: -Continue PO azithromycin # 4 / -10/09 Permethrin cream x1 -Give one dose of Ivermectin today and repeat in 2 week -check influenza sc -Monitor CBC/BMP, temperatures -aspiration precautions -contact isolation Subjective Constitutional: Denies: no symptoms, fever, chills, fatigue, anorexia, drenching sweats, other Allergies: Coded Allergies: TETRACYCLINE (Verified Allergy, Unknown, 01/07/11) Objective Vital Signs Last 24 Hour Vital Signs Date Time Temp Pulse Resp B/P (MAP) Pulse Ox O2 Delivery O2 Flow Rate FiO2 10/11/17 16:00 97.3 88 18 149/93 97 97.3 10/11/17 13:27 80 20 99 Nasal Cannula 1.0 24 10/11/17 13:19 86 18 98 Nasal Cannula 2.0 28 10/11/17 12:00 97.9 82 18 131/64 97 97.9 10/11/17 12:00 Room Air 10/11/17 09:17 86 20 99 Nasal Cannula 2.0 28 10/11/17 08:59 99 Nasal Cannula 2.0 28 10/11/17 08:59 Nasal Cannula 2.0 28 10/11/17 08:58 69 18 99 Nasal Cannula 2.0 28 10/11/17 08:00 Room Air 10/11/17 08:00 96.8 72 18 134/79 98 96.8 10/11/17 04:00 97.0 68 18 126/59 97.0 10/11/17 01:24 86 20 99 Nasal Cannula 2.0 28 10/11/17 01:04 82 22 96 Nasal Cannula 2.0 28 10/11/17 00:00 97.2 76 18 133/67 100 97.2 10/10/17 20:00 97.5 84 20 153/90 98 97.5 Height (Feet): 6 Height (Inches): 2.00 Weight (Pounds): 200 HEENT: normocephalic Respiratory/Chest: no respiratory distress Cardiovascular: regular rhythm Abdomen: no organomegaly Microbiology Date/Time Source Procedure Growth Status 10/10/17 21:15 Nasopharynx Influenza Types A,B Antigen (ADWOA) - Final Complete Laboratory Tests Test 10/11/17 07:45 10/11/17 18:25 White Blood Count 6.9 K/UL (4.8-10.8) Red Blood Count 3.93 M/UL (4.70-6.10) L Hemoglobin 10.0 G/DL (14.2-18.0) L Hematocrit 32.1 % (42.0-52.0) L Mean Corpuscular Volume 82 FL (80-99) Mean Corpuscular Hemoglobin 25.4 PG (27.0-31.0) L Mean Corpuscular Hemoglobin Concent 31.1 G/DL (32.0-36.0) L Red Cell Distribution Width 17.9 % (11.6-14.8) H Platelet Count 169 K/UL (150-450) Mean Platelet Volume 7.8 FL (6.5-10.1) Neutrophils (%) (Auto) 68.3 % (45.0-75.0) Lymphocytes (%) (Auto) 18.4 % (20.0-45.0) L Monocytes (%) (Auto) 13.0 % (1.0-10.0) H Eosinophils (%) (Auto) 0.0 % (0.0-3.0) Basophils (%) (Auto) 0.2 % (0.0-2.0) Sodium Level 144 MMOL/L (136-145) Potassium Level 3.7 MMOL/L (3.5-5.1) Chloride Level 104 MMOL/L (98-107) Carbon Dioxide Level 37 MMOL/L (21-32) H Anion Gap 3 mmol/L (5-15) L Blood Urea Nitrogen 12 mg/dL (7-18) Creatinine 0.8 MG/DL (0.55-1.30) Estimat Glomerular Filtration Rate mL/min (>60) Glucose Level 100 MG/DL (74-106) Calcium Level 8.4 MG/DL (8.5-10.1) L Iron Level 20 ug/dL (50-175) L Total Iron Binding Capacity 427 ug/dL (250-450) Percent Iron Saturation 5 % (15-50) L Unsaturated Iron Binding 407 ug/dL (112-346) H Ferritin 16 NG/ML (8-388) Vitamin B12 Level 287 PG/ML (193-986) Folate 11.9 NG/ML (8.6-58.9) Stool Occult Blood Pending Current Medications Medications (Trade) Dose Ordered Sig/Aguila Route PRN Reason Start Time Stop Time Status Last Admin Dose Admin Albuterol/ Ipratropium (Albuterol/ Ipratropium) 3 ml Q4H PRN HHN Shortness of Breath 10/11/17 10:00 10/16/17 09:59 Albuterol/ Ipratropium (Albuterol/ Ipratropium) 3 ml Q6HRT HHN 10/11/17 13:00 10/16/17 12:59 10/11/17 13:18 Azithromycin (Zithromax) 250 mg DAILY ORAL 10/08/17 09:00 10/15/17 08:59 10/11/17 09:59 Diphenhydramine HCl (Benadryl) 25 mg Q6H PRN IVP Itching 10/08/17 01:15 11/07/17 01:14 10/09/17 17:28 Heparin Sodium (Porcine) (Heparin 5000 units/ml) 5,000 units EVERY 12 HOURS SUBQ 10/08/17 09:00 11/07/17 08:59 10/11/17 10:01 Nicotine (Nicoderm) 1 patch Q24H TDERMAL 10/11/17 11:00 11/10/17 10:59 10/11/17 10:01 Pantoprazole (Protonix) 40 mg ACBREAKFAST ORAL 10/08/17 06:30 11/07/17 06:29 10/11/17 06:17 Prednisone (predniSONE) 60 mg DAILY ORAL 10/08/17 09:00 11/07/17 08:59 10/11/17 10:00 Salmeterol Xinafoate/ Fluticasone (Advair 250/50 Diskus) 1 puffs BIDRT INH 10/08/17 18:00 11/07/17 17:59 10/11/17 10:33 Tiotropium [place] (Spiriva Inhaler) 1 puff DAILY INH 10/11/17 09:00 11/10/17 08:59 10/11/17 10:33 Juan C Baumann MD Oct 11, 2017 19:48
[2017-10-11 20:00] VITALS: BP 151/91
[2017-10-12] VITALS: BP 148/78
[2017-10-12] MEDS: Albuterol/Ipratropium 3ml neb HHN SCH ×4 (01:20→19:17)
[2017-10-12 04:00] VITALS: BP 143/68
[2017-10-12 08:00] VITALS: BP 130/62
[2017-10-12] MEDS: Azithromycin 250mg tab ORAL SCH (08:32)
[2017-10-12] MEDS: Heparin 5000 units/ml inj SUBQ SCH ×2 (08:38→20:41)
[2017-10-12] MEDS: Advair 250/50 Inhaler - 14 dose INH SCH ×2 (10:00→21:37)
--- NOTE | 2017-10-12 10:03 | Pulmonology Progress Note ---
Assessment/Plan Assessment/Plan ASSESSMENT Acute COPD exacerbation. Chronic hypercapnic respiratory failure. tobacco abuse with dependency polysubstance abuse: ETOH , cocaine opioid dependency Dysphagia Anemia of iron deficiency . Hypertension. GERD. Bilateral pulmonary nodules(scattered) homeless [facility] C[facility] floor O2 titrate to keep pulse ox above 90% pulm toilet inhalers: Advair and Spiriva , scripts on d /c and encourage compliance HHN ATC and prn oral steroids with slow tapering empiric abx influenza screen negative ID follows fup with ABG( patient declined twice) DVT prophylaxis swallow eval on Friday esophageal X ray -declined PPI CT chest noted Repeat CT chest in 6 months to ensure stability of nodules Nicotine patch. child guidance counselor on smoking cessation BP monitoring, currently not on any a/HTN meds workup of anemia c/w MIKY, stool OB pending Venofer x 1 today closely monitor HH, transfuse prn outpatient followup with PFTs and optimization of his inhaler regimen s/p Rx with Permethrin 10/09 case discussed and evaluated by supervising physician Subjective Allergies: Coded Allergies: TETRACYCLINE (Verified Allergy, Unknown, 01/07/11) Subjective on O2 via NC no signs of resp distress, stable pulse ox reports difficulties with swallowing and epigastric pain, intermittent afebrile no wheezing, still some chest tightness Objective Last 24 Hour Vital Signs Date Time Temp Pulse Resp B/P (MAP) Pulse Ox O2 Delivery O2 Flow Rate FiO2 10/12/17 08:00 97.2 84 18 130/62 98 97.2 10/12/17 07:35 84 18 99 Room Air 21 10/12/17 06:51 Room Air 21 10/12/17 06:51 82 16 96 Room Air 21 10/12/17 06:51 96 Room Air 21 10/12/17 04:00 97.3 85 20 143/68 99 97.3 10/12/17 01:29 88 18 97 Nasal Cannula 1.0 24 10/12/17 01:19 24 10/12/17 01:18 88 18 97 Nasal Cannula 1.0 24 10/12/17 00:00 97.7 75 20 148/78 95 97.7 10/11/17 21:12 88 18 97 Nasal Cannula 1.0 24 10/11/17 21:03 24 10/11/17 21:02 88 18 97 Nasal Cannula 1.0 24 10/11/17 21:02 Nasal Cannula 1.0 24 10/11/17 21:02 97 Nasal Cannula 1.0 24 10/11/17 21:02 88 18 97 Nasal Cannula 1.0 24 10/11/17 20:00 97.7 84 20 151/91 98 97.7 10/11/17 16:00 97.3 88 18 149/93 97 97.3 10/11/17 13:27 80 20 99 Nasal Cannula 1.0 24 10/11/17 13:19 86 18 98 Nasal Cannula 2.0 28 10/11/17 12:00 97.9 82 18 131/64 97 97.9 10/11/17 12:00 Room Air Intake and Output 10/11/17 10/12/17 19:00 07:00 Intake Total 480 ml 600 ml Output Total 850 ml Balance 480 ml -250 ml Intake Oral 480 ml 600 ml Output Urine Total 850 ml # Voids 3 # Bowel Movements 1 Objective General Appearance: no acute distress HEENT: normocephalic, atraumatic, anicteric, mucous membranes moist, O2 via NC Respiratory/Chest: no respiratory distress, no accessory muscle use, decreased breath sounds bilaterally Cardiovascular: normal peripheral pulses, normal rate, regular rhythm, no JVD Abdomen: normal bowel sounds, soft, non tender, non distended Extremities: no edema Neurologic/Psychiatric: no motor/sensory deficits, alert, oriented x 3, responsive, weak Musculoskeletal: normal muscle bulk Microbiology Date/Time Source Procedure Growth Status 10/10/17 21:15 Nasopharynx Influenza Types A,B Antigen (ADWOA) - Final Complete Laboratory Tests 10/11/17 18:25: Stool Occult Blood [Pending] Current Medications Medications (Trade) Dose Ordered Sig/Aguila Route PRN Reason Start Time Stop Time Status Last Admin Dose Admin Albuterol/ Ipratropium (Albuterol/ Ipratropium) 3 ml Q4H PRN HHN Shortness of Breath 10/11/17 10:00 10/16/17 09:59 Albuterol/ Ipratropium (Albuterol/ Ipratropium) 3 ml Q6HRT HHN 10/11/17 13:00 10/16/17 12:59 10/12/17 06:51 Azithromycin (Zithromax) 250 mg DAILY ORAL 10/08/17 09:00 4/4/18 08:59 10/12/17 08:32 Diphenhydramine HCl (Benadryl) 25 mg Q6H PRN IVP Itching 10/08/17 01:15 11/07/17 01:14 10/09/17 17:28 Heparin Sodium (Porcine) (Heparin 5000 units/ml) 5,000 units EVERY 12 HOURS SUBQ 10/08/17 09:00 11/07/17 08:59 10/12/17 08:38 Nicotine (Nicoderm) 1 patch Q24H TDERMAL 10/11/17 11:00 11/10/17 10:59 10/12/17 08:33 Pantoprazole (Protonix) 40 mg ACBREAKFAST ORAL 10/08/17 06:30 11/07/17 06:29 10/12/17 05:48 Prednisone (predniSONE) 60 mg DAILY ORAL 10/08/17 09:00 11/07/17 08:59 10/12/17 08:32 Salmeterol Xinafoate/ Fluticasone (Advair 250/50 Diskus) 1 puffs BIDRT INH 10/08/17 18:00 11/07/17 17:59 10/11/17 21:10 Tiotropium [place] (Spiriva Inhaler) 1 puff DAILY INH 10/11/17 09:00 11/10/17 08:59 10/12/17 08:54 [facility] Babcock NP Oct 12, 2017 10:03
[2017-10-12 12:00] VITALS: BP 136/76
[2017-10-12] MEDS ORDERED: Iron Sucrose 100 MG in NS 55 ML IV ONE (12:00)
[2017-10-12] MEDS ORDERED: Iron Sucrose 100 MG in NS 110 ML IV ONE (12:00)
[2017-10-12 16:00] VITALS: BP 153/83
[2017-10-12 20:00] VITALS: BP 148/74
[2017-10-13] VITALS: BP 147/78
[2017-10-13] MEDS: Albuterol/Ipratropium 3ml neb HHN SCH ×5 (00:02→19:21)
[2017-10-13 04:18] VITALS: BP 140/73
[2017-10-13] MEDS: Advair 250/50 Inhaler - 14 dose INH SCH ×2 (07:18→22:18)
[2017-10-13 08:00] VITALS: BP 125/70
[2017-10-13] MEDS: Azithromycin 250mg tab ORAL SCH (08:47)
[2017-10-13] MEDS: Heparin 5000 units/ml inj SUBQ SCH ×2 (08:49→20:22)
[2017-10-13 12:00] VITALS: BP_SYST 118; BP_SYST 125; BP_DIAS 70; BP_DIAS 75
--- NOTE | 2017-10-13 14:25 | Infectious Diseases Prog Note ---
Assessment/Plan Assessment/Plan Assesment: COPD exacerbation -CXR: Right basilar atelectasis and/or scarring. No acute process otherwise -CT chest: Scattered pulmonary parenchymal nodules and irregular opacities, as described, some stable since prior study of 01/15/2017, others new. Other lesionspreviously demonstrated on the earlier study are no longer evident. Findings most likely represent recent or old postinflammatory changes, but neoplasm as etiology of any of these is not excludable. Recommend short interval follow-up CT in 6 months. Evidence old granulomatous disease in the right lung, right pulmonary hilar lymph nodes, and in the spleen. No acute consolidation or pleural fluid. Incidental finding of minimal degenerative thoracic spondylosis, bilateral gynecomastia Afebrile, no leukocytosis Rash, possible scabies COPD tobacco abuse (daily smoker) HTN CVA substance abuse (cocaine)/narcotic dependance alcohol abuse HLD GERD VRE colonized Plan: monitor pt off of AB Rx - 10/12 SP PO azithromycin # 5 -10/09 Permethrin cream x1 -Give one dose of Ivermectin today and repeat in 2 week -Monitor CBC/BMP, temperatures -aspiration precautions -contact isolation Subjective Constitutional: Denies: no symptoms, fever, chills, fatigue, anorexia, drenching sweats, other Allergies: Coded Allergies: TETRACYCLINE (Verified Allergy, Unknown, 01/07/11) Objective Vital Signs Last 24 Hour Vital Signs Date Time Temp Pulse Resp B/P (MAP) Pulse Ox O2 Delivery O2 Flow Rate FiO2 10/13/17 13:26 Room Air 10/13/17 13:26 Room Air 10/13/17 12:00 97.0 80 20 118/75 98 97.0 10/13/17 08:00 98.8 80 18 125/70 97 98.8 10/13/17 07:22 82 20 99 Nasal Cannula 1.0 24 10/13/17 07:21 Nasal Cannula 1.0 24 10/13/17 07:11 79 18 96 Nasal Cannula 1.0 24 10/13/17 07:10 96 Nasal Cannula 1.0 24 10/13/17 04:18 97.1 80 19 140/73 98 97.1 10/13/17 00:10 68 20 99 Nasal Cannula 1.0 24 10/13/17 00:02 75 18 96 Nasal Cannula 1.0 24 10/13/17 00:00 96.8 75 20 147/78 96 Room Air 96.8 10/13/17 00:00 Room Air 10/12/17 20:00 97.2 75 18 148/74 96 Room Air 97.2 10/12/17 20:00 Room Air 10/12/17 19:28 89 20 99 Nasal Cannula 1.0 24 10/12/17 19:20 87 18 97 Nasal Cannula 1.0 24 10/12/17 19:20 Nasal Cannula 1.0 24 10/12/17 19:17 97 Nasal Cannula 1.0 24 10/12/17 16:00 97.5 88 18 153/83 98 97.5 Height (Feet): 6 Height (Inches): 2.00 Weight (Pounds): 200 HEENT: anicteric Respiratory/Chest: no accessory muscle use Cardiovascular: regularly irregular Abdomen: no organomegaly Microbiology Date/Time Source Procedure Growth Status 10/10/17 21:15 Nasopharynx Influenza Types A,B Antigen (ADWOA) - Final Complete Current Medications Medications (Trade) Dose Ordered Sig/Aguila Route PRN Reason Start Time Stop Time Status Last Admin Dose Admin Albuterol/ Ipratropium (Albuterol/ Ipratropium) 3 ml Q4H PRN HHN Shortness of Breath 10/11/17 10:00 10/16/17 09:59 Albuterol/ Ipratropium (Albuterol/ Ipratropium) 3 ml Q6HRT HHN 10/11/17 13:00 10/16/17 12:59 10/13/17 07:17 Azithromycin (Zithromax) 250 mg DAILY ORAL 10/08/17 09:00 10/15/17 08:59 10/13/17 08:47 Diphenhydramine HCl (Benadryl) 25 mg Q6H PRN IVP Itching 10/08/17 01:15 11/07/17 01:14 10/09/17 17:28 Heparin Sodium (Porcine) (Heparin 5000 units/ml) 5,000 units EVERY 12 HOURS SUBQ 10/08/17 09:00 11/07/17 08:59 10/13/17 08:49 Nicotine (Nicoderm) 1 patch Q24H TDERMAL 10/11/17 11:00 11/10/17 10:59 10/12/17 08:33 Pantoprazole (Protonix) 40 mg ACBREAKFAST ORAL 10/08/17 06:30 11/07/17 06:29 10/13/17 05:57 Prednisone (predniSONE) 50 mg DAILY ORAL 10/13/17 09:00 11/07/17 08:59 10/13/17 08:48 Salmeterol Xinafoate/ Fluticasone (Advair 250/50 Diskus) 1 puffs BIDRT INH 10/08/17 18:00 11/07/17 17:59 10/13/17 07:18 Tiotropium [place] (Spiriva Inhaler) 1 puff DAILY INH 10/11/17 09:00 11/10/17 08:59 10/13/17 07:18 Juan C Baumann MD Oct 13, 2017 14:25
[2017-10-13 16:00] VITALS: BP 118/75
[2017-10-13 20:00] VITALS: BP 130/64
--- NOTE | 2017-10-13 22:28 | General Progress Note ---
Assessment/Plan Status: stable Assessment/Plan substance use d/o alcohol use mdd anxiety the pt is guarded and uncooperative at times Subjective Date patient seen: Oct 13, 2017 Neurologic/Psychiatric: Reports: anxiety, depressed, emotional problems Allergies: Coded Allergies: TETRACYCLINE (Verified Allergy, Unknown, 01/07/11) Objective Last 24 Hour Vital Signs Date Time Temp Pulse Resp B/P (MAP) Pulse Ox O2 Delivery O2 Flow Rate FiO2 10/13/17 21:02 94 20 Nasal Cannula 2.0 28 10/13/17 20:00 97.9 87 20 130/64 94 97.9 10/13/17 19:23 82 20 96 Nasal Cannula 2.0 28 10/13/17 19:22 80 20 92 Nasal Cannula 2.0 28 10/13/17 19:21 92 Nasal Cannula 2.0 28 10/13/17 19:21 Nasal Cannula 2.0 28 10/13/17 16:00 97.0 80 20 118/75 98 97.0 10/13/17 15:25 89 20 99 Nasal Cannula 1.0 24 10/13/17 15:16 76 18 97 Nasal Cannula 1.0 24 10/13/17 13:26 Room Air 10/13/17 13:26 Room Air 10/13/17 12:00 97.0 80 20 118/75 98 97.0 10/13/17 08:00 98.8 80 18 125/70 97 98.8 10/13/17 07:22 82 20 99 Nasal Cannula 1.0 24 10/13/17 07:21 Nasal Cannula 1.0 24 10/13/17 07:11 79 18 96 Nasal Cannula 1.0 24 10/13/17 07:10 96 Nasal Cannula 1.0 24 10/13/17 04:18 97.1 80 19 140/73 98 97.1 10/13/17 00:10 68 20 99 Nasal Cannula 1.0 24 10/13/17 00:02 75 18 96 Nasal Cannula 1.0 24 10/13/17 00:00 96.8 75 20 147/78 96 Room Air 96.8 10/13/17 00:00 Room Air Intake and Output 10/12/17 10/13/17 19:00 07:00 Intake Total 560 ml 480 ml Balance 560 ml 480 ml Intake Oral 560 ml 480 ml # Voids 4 # Bowel Movements 1 Height (Feet): 6 Height (Inches): 2.00 Weight (Pounds): 200 General Appearance: no apparent distress, alert Kayla Christensen M.D. Oct 13, 2017 22:28
--- NOTE | 2017-10-13 22:29 | Psych Consult Progress Note ---
Psych Consult Progress Note Consult the pt was seen on 10/11/17 substance use d/o alcohol use mdd anxiety the pt is guarded and uncooperative at times Vital Signs Last 24 Hour Vital Signs Date Time Temp Pulse Resp B/P (MAP) Pulse Ox O2 Delivery O2 Flow Rate FiO2 10/13/17 21:02 94 20 Nasal Cannula 2.0 28 10/13/17 20:00 97.9 87 20 130/64 94 97.9 10/13/17 19:23 82 20 96 Nasal Cannula 2.0 28 10/13/17 19:22 80 20 92 Nasal Cannula 2.0 28 10/13/17 19:21 92 Nasal Cannula 2.0 28 10/13/17 19:21 Nasal Cannula 2.0 28 10/13/17 16:00 97.0 80 20 118/75 98 97.0 10/13/17 15:25 89 20 99 Nasal Cannula 1.0 24 10/13/17 15:16 76 18 97 Nasal Cannula 1.0 24 10/13/17 13:26 Room Air 10/13/17 13:26 Room Air 10/13/17 12:00 97.0 80 20 118/75 98 97.0 10/13/17 08:00 98.8 80 18 125/70 97 98.8 10/13/17 07:22 82 20 99 Nasal Cannula 1.0 24 10/13/17 07:21 Nasal Cannula 1.0 24 10/13/17 07:11 79 18 96 Nasal Cannula 1.0 24 10/13/17 07:10 96 Nasal Cannula 1.0 24 10/13/17 04:18 97.1 80 19 140/73 98 97.1 10/13/17 00:10 68 20 99 Nasal Cannula 1.0 24 10/13/17 00:02 75 18 96 Nasal Cannula 1.0 24 10/13/17 00:00 96.8 75 20 147/78 96 Room Air 96.8 10/13/17 00:00 Room Air Medications Current Medications Medications (Trade) Dose Ordered Sig/Aguila Route PRN Reason Start Time Stop Time Status Last Admin Dose Admin Albuterol/ Ipratropium (Albuterol/ Ipratropium) 3 ml Q4H PRN HHN Shortness of Breath 10/11/17 10:00 10/16/17 09:59 Albuterol/ Ipratropium (Albuterol/ Ipratropium) 3 ml Q6HRT HHN 10/11/17 13:00 10/16/17 12:59 10/13/17 19:21 Diphenhydramine HCl (Benadryl) 25 mg Q6H PRN IVP Itching 10/08/17 01:15 11/07/17 01:14 10/09/17 17:28 Heparin Sodium (Porcine) (Heparin 5000 units/ml) 5,000 units EVERY 12 HOURS SUBQ 10/08/17 09:00 11/07/17 08:59 10/13/17 20:22 Nicotine (Nicoderm) 1 patch Q24H TDERMAL 10/11/17 11:00 11/10/17 10:59 10/12/17 08:33 Pantoprazole (Protonix) 40 mg ACBREAKFAST ORAL 10/08/17 06:30 11/07/17 06:29 10/13/17 05:57 Prednisone (predniSONE) 50 mg DAILY ORAL 10/13/17 09:00 11/07/17 08:59 10/13/17 08:48 Salmeterol Xinafoate/ Fluticasone (Advair 250/50 Diskus) 1 puffs BIDRT INH 10/08/17 18:00 11/07/17 17:59 10/13/17 22:18 Tiotropium [place] (Spiriva Inhaler) 1 puff DAILY INH 10/11/17 09:00 11/10/17 08:59 10/13/17 07:18 Kayla Christensen M.D. Oct 13, 2017 22:29
--- NOTE | 2017-10-13 22:29 | Psych Consult Progress Note ---
Psych Consult Progress Note Consult the pt was seen on 10/12/17 the pt is the same no behavioral issues. substance use d/o alcohol use mdd anxiety the pt is guarded and uncooperative at times Vital Signs Last 24 Hour Vital Signs Date Time Temp Pulse Resp B/P (MAP) Pulse Ox O2 Delivery O2 Flow Rate FiO2 10/13/17 21:02 94 20 Nasal Cannula 2.0 28 10/13/17 20:00 97.9 87 20 130/64 94 97.9 10/13/17 19:23 82 20 96 Nasal Cannula 2.0 28 10/13/17 19:22 80 20 92 Nasal Cannula 2.0 28 10/13/17 19:21 92 Nasal Cannula 2.0 28 10/13/17 19:21 Nasal Cannula 2.0 28 10/13/17 16:00 97.0 80 20 118/75 98 97.0 10/13/17 15:25 89 20 99 Nasal Cannula 1.0 24 10/13/17 15:16 76 18 97 Nasal Cannula 1.0 24 10/13/17 13:26 Room Air 10/13/17 13:26 Room Air 10/13/17 12:00 97.0 80 20 118/75 98 97.0 10/13/17 08:00 98.8 80 18 125/70 97 98.8 10/13/17 07:22 82 20 99 Nasal Cannula 1.0 24 10/13/17 07:21 Nasal Cannula 1.0 24 10/13/17 07:11 79 18 96 Nasal Cannula 1.0 24 10/13/17 07:10 96 Nasal Cannula 1.0 24 10/13/17 04:18 97.1 80 19 140/73 98 97.1 10/13/17 00:10 68 20 99 Nasal Cannula 1.0 24 10/13/17 00:02 75 18 96 Nasal Cannula 1.0 24 10/13/17 00:00 96.8 75 20 147/78 96 Room Air 96.8 10/13/17 00:00 Room Air Medications Current Medications Medications (Trade) Dose Ordered Sig/Aguila Route PRN Reason Start Time Stop Time Status Last Admin Dose Admin Albuterol/ Ipratropium (Albuterol/ Ipratropium) 3 ml Q4H PRN HHN Shortness of Breath 10/11/17 10:00 4/5/18 09:59 Albuterol/ Ipratropium (Albuterol/ Ipratropium) 3 ml Q6HRT HHN 10/11/17 13:00 10/16/17 12:59 10/13/17 19:21 Diphenhydramine HCl (Benadryl) 25 mg Q6H PRN IVP Itching 10/08/17 01:15 11/07/17 01:14 10/09/17 17:28 Heparin Sodium (Porcine) (Heparin 5000 units/ml) 5,000 units EVERY 12 HOURS SUBQ 10/08/17 09:00 11/07/17 08:59 10/13/17 20:22 Nicotine (Nicoderm) 1 patch Q24H TDERMAL 10/11/17 11:00 11/10/17 10:59 10/12/17 08:33 Pantoprazole (Protonix) 40 mg ACBREAKFAST ORAL 10/08/17 06:30 11/07/17 06:29 10/13/17 05:57 Prednisone (predniSONE) 50 mg DAILY ORAL 10/13/17 09:00 11/07/17 08:59 10/13/17 08:48 Salmeterol Xinafoate/ Fluticasone (Advair 250/50 Diskus) 1 puffs BIDRT INH 10/08/17 18:00 11/07/17 17:59 10/13/17 22:18 Tiotropium [place] (Spiriva Inhaler) 1 puff DAILY INH 10/11/17 09:00 11/10/17 08:59 10/13/17 07:18 Kayla Christensen M.D. Oct 13, 2017 22:29
--- NOTE | 2017-10-13 22:42 | Pulmonology Progress Note ---
Assessment/Plan Problems: (1) Acute and chronic respiratory failure ([id number]) (2) copd exacerbation (3) Back pain (4) Bronchitis (5) Narcotic dependence Assessment/Plan improving titrate fio2 to sat of 92% chest pt check sputum pt/ot Subjective ROS Limited/Unobtainable: No Allergies: Coded Allergies: TETRACYCLINE (Verified Allergy, Unknown, 01/07/11) Objective Last 24 Hour Vital Signs Date Time Temp Pulse Resp B/P (MAP) Pulse Ox O2 Delivery O2 Flow Rate FiO2 10/13/17 21:02 94 20 Nasal Cannula 2.0 28 10/13/17 20:00 97.9 87 20 130/64 94 97.9 10/13/17 19:23 82 20 96 Nasal Cannula 2.0 28 10/13/17 19:22 80 20 92 Nasal Cannula 2.0 28 10/13/17 19:21 92 Nasal Cannula 2.0 28 10/13/17 19:21 Nasal Cannula 2.0 28 10/13/17 16:00 97.0 80 20 118/75 98 97.0 10/13/17 15:25 89 20 99 Nasal Cannula 1.0 24 10/13/17 15:16 76 18 97 Nasal Cannula 1.0 24 10/13/17 13:26 Room Air 10/13/17 13:26 Room Air 10/13/17 12:00 97.0 80 20 118/75 98 97.0 10/13/17 08:00 98.8 80 18 125/70 97 98.8 10/13/17 07:22 82 20 99 Nasal Cannula 1.0 24 10/13/17 07:21 Nasal Cannula 1.0 24 10/13/17 07:11 79 18 96 Nasal Cannula 1.0 24 10/13/17 07:10 96 Nasal Cannula 1.0 24 10/13/17 04:18 97.1 80 19 140/73 98 97.1 10/13/17 00:10 68 20 99 Nasal Cannula 1.0 24 10/13/17 00:02 75 18 96 Nasal Cannula 1.0 24 10/13/17 00:00 96.8 75 20 147/78 96 Room Air 96.8 10/13/17 00:00 Room Air Intake and Output 10/12/17 10/13/17 19:00 07:00 Intake Total 560 ml 480 ml Balance 560 ml 480 ml Intake Oral 560 ml 480 ml # Voids 4 # Bowel Movements 1 Objective General Appearance: WD/WN HEENT: normocephalic Respiratory/Chest: chest wall non-tender, lungs clear Cardiovascular: normal rate Abdomen: normal bowel sounds, soft, non tender, no scars Genitourinary: normal external genitalia Extremities: no clubbing Skin: no rash 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 Current Medications Medications (Trade) Dose Ordered Sig/Aguila Route PRN Reason Start Time Stop Time Status Last Admin Dose Admin Albuterol/ Ipratropium (Albuterol/ Ipratropium) 3 ml Q4H PRN HHN Shortness of Breath 10/11/17 10:00 10/16/17 09:59 Albuterol/ Ipratropium (Albuterol/ Ipratropium) 3 ml Q6HRT HHN 10/11/17 13:00 10/16/17 12:59 10/13/17 19:21 Diphenhydramine HCl (Benadryl) 25 mg Q6H PRN IVP Itching 10/08/17 01:15 11/07/17 01:14 10/09/17 17:28 Heparin Sodium (Porcine) (Heparin 5000 units/ml) 5,000 units EVERY 12 HOURS SUBQ 10/08/17 09:00 11/07/17 08:59 10/13/17 20:22 Nicotine (Nicoderm) 1 patch Q24H TDERMAL 10/11/17 11:00 11/10/17 10:59 10/12/17 08:33 Pantoprazole (Protonix) 40 mg ACBREAKFAST ORAL 10/08/17 06:30 11/07/17 06:29 10/13/17 05:57 Prednisone (predniSONE) 50 mg DAILY ORAL 10/13/17 09:00 11/07/17 08:59 10/13/17 08:48 Salmeterol Xinafoate/ Fluticasone (Advair 250/50 Diskus) 1 puffs BIDRT INH 10/08/17 18:00 11/07/17 17:59 10/13/17 22:18 Tiotropium [place] (Spiriva Inhaler) 1 puff DAILY INH 10/11/17 09:00 11/10/17 08:59 10/13/17 07:18 Farhan Ortega MD Oct 13, 2017 22:42
[2017-10-14] VITALS: BP 123/65
[2017-10-14] MEDS: Albuterol/Ipratropium 3ml neb HHN SCH ×3 (01:00→12:56)
[2017-10-14 04:00] VITALS: BP 128/67
[2017-10-14 07:28] LABS: BASOPHILS % (AUTO) 0.3 % (0.0-2.0); HEMATOCRIT 32.7 % (42.0-52.0); HEMOGLOBIN 10.2 G/DL (14.2-18.0); LYMPHOCYTES % (AUTO) 12.1 % (20.0-45.0); MEAN CORPUSCULAR VOLUME 80 FL (80-99); MONOCYTES % (AUTO) 10.1 % (1.0-10.0); NEUTROPHILS % (AUTO) 77.4 % (45.0-75.0); PLATELET COUNT 179 K/UL (150-450); RED BLOOD COUNT 4.09 M/UL (4.70-6.10); RED CELL DISTRIBUTION WIDTH 17.4 % (11.6-14.8); WHITE BLOOD COUNT 6.8 K/UL (4.8-10.8)
[2017-10-14 07:40] LABS: ALANINE AMINOTRANSFERASE 50 U/L (12-78); ALBUMIN 2.9 G/DL (3.4-5.0); ALBUMIN/GLOBULIN RATIO 0.9 (1.0-2.7); ALKALINE PHOSPHATASE 32 U/L (46-116); ANION GAP 5 mmol/L (5-15); ASPARTATE AMINO TRANSFERASE 33 U/L (15-37); BILIRUBIN,TOTAL 0.3 MG/DL (0.2-1.0); BLOOD UREA NITROGEN 15 mg/dL (7-18); CALCIUM 7.7 MG/DL (8.5-10.1); CARBON DIOXIDE 31 MMOL/L (21-32); CHLORIDE 103 MMOL/L (98-107); CREATININE 0.6 MG/DL (0.55-1.30); PHOSPHORUS 3.5 MG/DL (2.5-4.9); SODIUM 139 MMOL/L (136-145)
[2017-10-14 08:00] VITALS: BP 138/77
[2017-10-14] MEDS: Heparin 5000 units/ml inj SUBQ SCH (08:29)
--- NOTE | 2017-10-14 09:03 | Infectious Diseases Prog Note ---
Assessment/Plan Assessment/Plan Assesment: COPD exacerbation, SP Rx -CXR: Right basilar atelectasis and/or scarring. No acute process otherwise -CT chest: Scattered pulmonary parenchymal nodules and irregular opacities, as described, some stable since prior study of 01/15/2017, others new. Other lesionspreviously demonstrated on the earlier study are no longer evident. Findings most likely represent recent or old postinflammatory changes, but neoplasm as etiology of any of these is not excludable. Recommend short interval follow-up CT in 6 months. Evidence old granulomatous disease in the right lung, right pulmonary hilar lymph nodes, and in the spleen. No acute consolidation or pleural fluid. Incidental finding of minimal degenerative thoracic spondylosis, bilateral gynecomastia Afebrile, no leukocytosis Rash, possible scabies COPD tobacco abuse (daily smoker) HTN CVA substance abuse (cocaine)/narcotic dependance alcohol abuse HLD GERD VRE colonized Plan: monitor pt off of AB Rx - 10/12 SP PO azithromycin # 5 -10/09 Permethrin cream x1 - SP Ivermectin and repeat in 2 week -Monitor CBC/BMP, temperatures -aspiration precautions -contact isolation Subjective Constitutional: Denies: no symptoms, fever, chills, fatigue, anorexia, drenching sweats, other Allergies: Coded Allergies: TETRACYCLINE (Verified Allergy, Unknown, 01/07/11) Objective Vital Signs Last 24 Hour Vital Signs Date Time Temp Pulse Resp B/P (MAP) Pulse Ox O2 Delivery O2 Flow Rate FiO2 10/14/17 07:36 79 18 99 Room Air 21 10/14/17 07:28 76 16 99 Room Air 21 10/14/17 07:28 99 Room Air 21 10/14/17 07:28 Nasal Cannula 21 10/14/17 04:00 98.1 77 20 128/67 96 98.1 10/14/17 01:07 Nasal Cannula 2.0 10/14/17 01:06 Nasal Cannula 2.0 10/14/17 00:00 98.4 88 20 123/65 97 98.4 10/14/17 00:00 97 Room Air 10/13/17 21:02 94 20 Nasal Cannula 2.0 28 10/13/17 20:00 94 Room Air 10/13/17 20:00 97.9 87 20 130/64 94 97.9 10/13/17 19:23 82 20 96 Nasal Cannula 2.0 10/13/17 19:22 80 20 92 Nasal Cannula 2.0 10/13/17 19:21 92 Nasal Cannula 2.0 10/13/17 19:21 Nasal Cannula 2.0 10/13/17 16:00 97.0 80 20 118/75 98 97.0 10/13/17 15:25 89 20 99 Nasal Cannula 1.0 10/13/17 15:16 76 18 97 Nasal Cannula 1.0 10/13/17 13:26 Room Air 10/13/17 13:26 Room Air 10/13/17 12:00 97.0 80 20 118/75 98 97.0 Height (Feet): 6 Height (Inches): 2.00 Weight (Pounds): 200 HEENT: anicteric Respiratory/Chest: no respiratory distress Cardiovascular: regularly irregular Abdomen: no organomegaly Laboratory Tests Test 10/14/17 05:40 White Blood Count 6.8 K/UL (4.8-10.8) Red Blood Count 4.09 M/UL (4.70-6.10) L Hemoglobin 10.2 G/DL (14.2-18.0) L Hematocrit 32.7 % (42.0-52.0) L Mean Corpuscular Volume 80 FL (80-99) Mean Corpuscular Hemoglobin 25.0 PG (27.0-31.0) L Mean Corpuscular Hemoglobin Concent 31.3 G/DL (32.0-36.0) L Red Cell Distribution Width 17.4 % (11.6-14.8) H Platelet Count 179 K/UL (150-450) Mean Platelet Volume 8.0 FL (6.5-10.1) Neutrophils (%) (Auto) 77.4 % (45.0-75.0) H Lymphocytes (%) (Auto) 12.1 % (20.0-45.0) L Monocytes (%) (Auto) 10.1 % (1.0-10.0) H Eosinophils (%) (Auto) 0.0 % (0.0-3.0) Basophils (%) (Auto) 0.3 % (0.0-2.0) Sodium Level 139 MMOL/L (136-145) Potassium Level 4.0 MMOL/L (3.5-5.1) Chloride Level 103 MMOL/L (98-107) Carbon Dioxide Level 31 MMOL/L (21-32) Anion Gap 5 mmol/L (5-15) Blood Urea Nitrogen 15 mg/dL (7-18) Creatinine 0.6 MG/DL (0.55-1.30) Estimat Glomerular Filtration Rate mL/min (>60) Glucose Level 94 MG/DL (74-106) Calcium Level 7.7 MG/DL (8.5-10.1) L Phosphorus Level 3.5 MG/DL (2.5-4.9) Magnesium Level 2.2 MG/DL (1.8-2.4) Total Bilirubin 0.3 MG/DL (0.2-1.0) Aspartate Amino Transf (AST/SGOT) 33 U/L (15-37) Alanine Aminotransferase (ALT/SGPT) 50 U/L (12-78) Alkaline Phosphatase 32 U/L (46-116) L Total Protein 6.0 G/DL (6.4-8.2) L Albumin 2.9 G/DL (3.4-5.0) L Globulin 3.1 g/dL Albumin/Globulin Ratio 0.9 (1.0-2.7) L Current Medications Medications (Trade) Dose Ordered Sig/Aguila Route PRN Reason Start Time Stop Time Status Last Admin Dose Admin Albuterol/ Ipratropium (Albuterol/ Ipratropium) 3 ml Q4H PRN HHN Shortness of Breath 10/11/17 10:00 10/16/17 09:59 Albuterol/ Ipratropium (Albuterol/ Ipratropium) 3 ml Q6HRT HHN 10/11/17 13:00 10/16/17 12:59 10/14/17 07:28 Diphenhydramine HCl (Benadryl) 25 mg Q6H PRN IVP Itching 10/08/17 01:15 11/07/17 01:14 10/09/17 17:28 Heparin Sodium (Porcine) (Heparin 5000 units/ml) 5,000 units EVERY 12 HOURS SUBQ 10/08/17 09:00 11/07/17 08:59 10/14/17 08:29 Nicotine (Nicoderm) 1 patch Q24H TDERMAL 10/11/17 11:00 11/10/17 10:59 10/12/17 08:33 Pantoprazole (Protonix) 40 mg ACBREAKFAST ORAL 10/08/17 06:30 11/07/17 06:29 10/14/17 05:58 Prednisone (predniSONE) 50 mg DAILY ORAL 10/13/17 09:00 11/07/17 08:59 10/14/17 08:28 Salmeterol Xinafoate/ Fluticasone (Advair 250/50 Diskus) 1 puffs BIDRT INH 10/08/17 18:00 11/07/17 17:59 10/13/17 22:18 Tiotropium [place] (Spiriva Inhaler) 1 puff DAILY INH 10/11/17 09:00 11/10/17 08:59 10/13/17 07:18 Juan C Baumann MD Oct 14, 2017 09:03
[2017-10-14] MEDS: Advair 250/50 Inhaler - 14 dose INH SCH (10:49)
[2017-10-14 11:45] VITALS: BP 145/80
--- NOTE | 2017-10-14 18:34 | Discharge Summary ---
Discharge Summary Discharge Summary Discharge Summary DATE OF ADMISSION: 10/07/2017 DATE OF DISCHARGE: 10/14/2017 CONSULTANTS: 1. Dr. Kayla Christensen 2. Dr. Farhan Ortega 3. Dr. Juan C Baumann [facility] HOSPITAL COURSE: Patient is a 77-year-old white male, who presented with worsening shortness of breath reported for past 1 week. He denied any fever or chills. He denied any sick contacts. He reported symptoms are same at the time of admission. He has medical history including but not limited to COPD, narcotic dependence, cocaine abuse, history of CVA and hypertension. On evaluation at ED, chest x-ray showed no acute process. Right basilar atelectasis and/ or scarring. He was given DuoNeb and was started on IV Solu- Medrol. There was no leukocytosis noted. He was admitted for acute COPD exacerbation. He had a CT scan of the chest on January last year that showed an ill-defined 7 mm right upper lobe and 8 mm lingular nodule as well as some granulomatous disease however discussed was not followed up. The patient did not have outpatient care and never had a formal PFT done. He was given O2 support to keep saturation greater than 90% he was given nebulizer treatments. IV Solu-Medrol was discontinued and was started on prednisone 60 mg by mouth daily. Influenza screen was negative. He declined follow-up repeat ABG. Repeat CT of the chest done showed scattered pulmonary parenchymal nodules and irregular opacities, stable since prior study. There was no acute consolidation or pleural fluid. He received 5 days of azithromycin and was observed off antibiotic treatment. He had dysphagia and refused esophageal x-ray. He was given PPI. He had rashes , possible scabies and was given permethrin cream, and one dose of ivermectin, recommend to repeat in 2 weeks. Patient had been guarded and uncooperative at times he had anxiety, and was followed by psychiatrist. Symptoms were consistent with depression however has poor insight. He refused psychotic meds. He was eventually discharged to [facility]. FINAL DIAGNOSES: 1. Acute COPD exacerbation 2. Chronic hypercapnic respiratory failure 3. Tobacco abuse with dependency 4. Polysubstance abuse 5. Opioid dependency 6. Dysphagia 7. Anemia of iron deficiency 8. Hypertension 9. GERD 10. Bilateral pulmonary nodules 11. Homelessness 12. Anxiety 13. Major depressive disorder 14. Possible Scabies status post treatment DISPOSITION: He was discharged to [facility]hab on [address] DISCHARGE MEDICATIONS: Refer to Discharge Medication List. I have been assigned to dictate discharge summary on this account, and I was not involved in the patient's management. Katelin Ray NP Oct 14, 2017 18:34
--- NOTE | 2017-10-14 19:24 | Pulmonology Progress Note ---
Assessment/Plan Problems: (1) Respiratory distress (2) copd exacerbation (3) Bronchitis (4) Back pain (5) Narcotic dependence Assessment/Plan improving continue respiratory treatmenty titrate fio2 pt/ot pain management Subjective ROS Limited/Unobtainable: No Allergies: Coded Allergies: TETRACYCLINE (Verified Allergy, Unknown, 01/07/11) Objective Last 24 Hour Vital Signs Date Time Temp Pulse Resp B/P (MAP) Pulse Ox O2 Delivery O2 Flow Rate FiO2 10/14/17 13:02 77 18 98 Room Air 21 10/14/17 12:56 78 16 98 Room Air 21 10/14/17 11:45 96.1 78 18 145/80 99 96.1 10/14/17 08:00 98.2 78 18 138/77 96 98.2 10/14/17 07:36 79 18 99 Room Air 21 10/14/17 07:28 76 16 99 Room Air 21 10/14/17 07:28 99 Room Air 10/14/17 07:28 Nasal Cannula 10/14/17 04:00 98.1 77 20 128/67 96 98.1 10/14/17 01:07 Nasal Cannula 2.0 28 10/14/17 01:06 Nasal Cannula 2.0 28 10/14/17 00:00 98.4 88 20 123/65 97 98.4 10/14/17 00:00 97 Room Air 10/13/17 21:02 94 20 Nasal Cannula 2.0 28 10/13/17 20:00 94 Room Air 10/13/17 20:00 97.9 87 20 130/64 94 97.9 Intake and Output 10/13/17 10/14/17 19:00 07:00 Intake Total 800 ml Balance 800 ml Intake Oral 800 ml # Voids 4 3 # Bowel Movements 1 Objective General Appearance: WD/WN HEENT: normocephalic Respiratory/Chest: chest wall non-tender, lungs clear Cardiovascular: normal rate Abdomen: normal bowel sounds, soft, non tender, no scars Genitourinary: normal external genitalia Extremities: no clubbing Skin: no rash 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 Laboratory Tests 10/14/17 05:40: White Blood Count 6.8, Red Blood Count 4.09L, Hemoglobin 10.2L, Hematocrit 32.7L , Mean Corpuscular Volume 80, Mean Corpuscular Hemoglobin 25.0L, Mean Corpuscular Hemoglobin Concent 31.3L, Red Cell Distribution Width 17.4H, Platelet Count 179, Mean Platelet Volume 8.0, Neutrophils (%) (Auto) 77.4H, Lymphocytes (%) (Auto) 12.1L, Monocytes (%) (Auto) 10.1H, Eosinophils (%) (Auto ) 0.0, Basophils (%) (Auto) 0.3, Sodium Level 139, Potassium Level 4.0, Chloride Level 103, Carbon Dioxide Level 31, Anion Gap 5, Blood Urea Nitrogen 15 , Creatinine 0.6, Estimat Glomerular Filtration Rate , Glucose Level 94, Calcium Level 7.7L, Phosphorus Level 3.5, Magnesium Level 2.2, Total Bilirubin 0.3, Aspartate Amino Transf (AST/SGOT) 33, Alanine Aminotransferase (ALT/SGPT) 50, Alkaline Phosphatase 32L, Total Protein 6.0L, Albumin 2.9L, Globulin 3.1, Albumin/Globulin Ratio 0.9L Farhan Ortega MD Oct 14, 2017 19:24
--- NOTE | 2017-10-14 22:59 | General Progress Note ---
Assessment/Plan Assessment/Plan substance use d/o alcohol use mdd anxiety the pt is guarded and uncooperative at times Subjective Date patient seen: Oct 14, 2017 Neurologic/Psychiatric: Reports: anxiety, depressed Allergies: Coded Allergies: TETRACYCLINE (Verified Allergy, Unknown, 01/07/11) Objective Last 24 Hour Vital Signs Date Time Temp Pulse Resp B/P (MAP) Pulse Ox O2 Delivery O2 Flow Rate FiO2 10/14/17 13:02 77 18 98 Room Air 21 10/14/17 12:56 78 16 98 Room Air 21 10/14/17 11:45 96.1 78 18 145/80 99 96.1 10/14/17 08:00 98.2 78 18 138/77 96 98.2 10/14/17 07:36 79 18 99 Room Air 21 10/14/17 07:28 76 16 99 Room Air 21 10/14/17 07:28 99 Room Air 21 10/14/17 07:28 Nasal Cannula 21 10/14/17 04:00 98.1 77 20 128/67 96 98.1 10/14/17 01:07 Nasal Cannula 2.0 28 10/14/17 01:06 Nasal Cannula 2.0 28 10/14/17 00:00 98.4 88 20 123/65 97 98.4 10/14/17 00:00 97 Room Air Intake and Output 10/13/17 10/14/17 19:00 07:00 Intake Total 800 ml Balance 800 ml Intake Oral 800 ml # Voids 4 3 # Bowel Movements 1 Laboratory Tests 10/14/17 05:40: White Blood Count 6.8, Red Blood Count 4.09L, Hemoglobin 10.2L, Hematocrit 32.7L , Mean Corpuscular Volume 80, Mean Corpuscular Hemoglobin 25.0L, Mean Corpuscular Hemoglobin Concent 31.3L, Red Cell Distribution Width 17.4H, Platelet Count 179, Mean Platelet Volume 8.0, Neutrophils (%) (Auto) 77.4H, Lymphocytes (%) (Auto) 12.1L, Monocytes (%) (Auto) 10.1H, Eosinophils (%) (Auto ) 0.0, Basophils (%) (Auto) 0.3, Sodium Level 139, Potassium Level 4.0, Chloride Level 103, Carbon Dioxide Level 31, Anion Gap 5, Blood Urea Nitrogen 15 , Creatinine 0.6, Estimat Glomerular Filtration Rate , Glucose Level 94, Calcium Level 7.7L, Phosphorus Level 3.5, Magnesium Level 2.2, Total Bilirubin 0.3, Aspartate Amino Transf (AST/SGOT) 33, Alanine Aminotransferase (ALT/SGPT) 50, Alkaline Phosphatase 32L, Total Protein 6.0L, Albumin 2.9L, Globulin 3.1, Albumin/Globulin Ratio 0.9L Height (Feet): 6 Height (Inches): 2.00 Weight (Pounds): 200 Kayla Christensen M.D. Oct 14, 2017 22:58
== END 2017-10-14 13:55 | DRG 191 ==
LOC: EDBD 20:09 → EMR 20:28 → 2E 22:13 → EDBEDREQ 22:30 → 4W 10-08 11:07
DX: J44.0 Chronic obstructive pulmonary disease with (acute) lower respiratory infection (principal); J96.12 Chronic respiratory failure with hypercapnia; F11.20 Opioid dependence, uncomplicated; K92.2 Gastrointestinal hemorrhage, unspecified; R13.10 Dysphagia, unspecified; I10 Essential (primary) hypertension; D50.9 Iron deficiency anemia, unspecified; E78.5 Hyperlipidemia, unspecified; F14.10 Cocaine abuse, uncomplicated; F17.200 Nicotine dependence, unspecified, uncomplicated; J44.1 Chronic obstructive pulmonary disease with (acute) exacerbation; K21.9 Gastro-esophageal reflux disease without esophagitis; F10.10 Alcohol abuse, uncomplicated; Z59.0 Homelessness; F19.10 Other psychoactive substance abuse, uncomplicated; R91.1 Solitary pulmonary nodule; F41.9 Anxiety disorder, unspecified; F32.9 Major depressive disorder, single episode, unspecified; B86 Scabies; Z86.73 Personal history of transient ischemic attack (TIA), and cerebral infarction without residual deficits; Z88.8 Allergy status to other drugs, medicaments and biological substances; J40 Bronchitis, not specified as acute or chronic
CPT/HCPCS: 36415; 71045; 71250; 80048; 80053; 82270; 82607; 82728; 82746; 83540; 83550; 83735; 84100; 84484; 85025; 86710; 87081; 93005; 94640; 94664; 94760; 99285; J7620

== ENCOUNTER 2017-11-05 23:25 | Emergency (ER) | payer MEDICARE, MEDICAID ==
[~2017-11-05] VITALS: Ht 188 cm; Wt 81.6 kg
--- NOTE | 2017-11-05 23:42 | Emergency Room Report ---
History of Present Illness General Chief Complaint: Dyspnea/Respdistress Source: Patient Present Illness HPI This is a 77-year-old male with history of COPD and high blood pressure. He presents with chief complaint of shortness of breath. This accounted problem but worse in the last few days but usually at night he said he has a hard time breathing. Worse when he lay flat. He was taking the bus to [facility] when he had worsening shortness of breath so he called 911. Better after breathing treatment. No chest pain. No nausea no vomiting. Increasing edema to his lower extremity. Not taking his Lasix. Admit to cocaine use 3 days ago. Denies any chest pain. Denies any diaphoresis. Better with rest. Worse with exertion. Allergies: Coded Allergies: TETRACYCLINE (Verified Allergy, Unknown, 01/07/11) Patient History Past Medical History: see triage record, old chart reviewed, HTN, CHF, COPD Past Surgical History: other Pertinent Family History: none Social History: Reports: smoking, drug use Immunizations: other Reviewed Nursing Documentation: PMH: Agreed; PSxH: Agreed Nursing Documentation-PMH Hx Cardiac Problems: Yes Hx Hypertension: Yes Hx Asthma: Yes - bronchitis Hx COPD: Yes Hx Cancer: No Hx Gastrointestinal Problems: Yes Hx Neurological Problems: Yes Hx Cerebrovascular Accident: Yes Hx Dizziness: Yes Hx Headaches: Yes Hx Weakness: Yes Hx Fatigue: Yes Review of Systems Eye: Denies: eye pain, blurred vision ENT: Denies: ear pain, nose congestion, throat swelling Respiratory: Reports: cough, shortness of breath Cardiovascular: Denies: chest pain, palpitations Gastrointestinal: Denies: abdominal pain, diarrhea, nausea, vomiting Musculoskeletal: Denies: back pain, joint pain Skin: Denies: rash Neurological: Denies: headache, numbness Endocrine: Denies: increased thirst, increased urine Hematologic/Lymphatic: Denies: easy bruising All Other Systems: negative except mentioned in HPI Physical Exam Vital Signs Date Time Temp Pulse Resp B/P (MAP) Pulse Ox O2 Delivery O2 Flow Rate FiO2 11/05/17 23:22 97.9 92 20 124/44 100 Room Air 97.9 vitals normal Sp02 EP Interpretation: reviewed, normal General Appearance: well appearing, no apparent distress, alert Head: normocephalic, atraumatic Eyes: bilateral eye PERRL, bilateral eye EOMI ENT: hearing grossly normal, normal pharynx Neck: full range of motion, supple, no meningismus Respiratory: chest non-tender, decreased breath sounds, wheezing - expiratory Cardiovascular #1: regular rate, rhythm, no murmur Gastrointestinal: normal bowel sounds, non tender, no mass, no organomegaly, no bruit, non-distended Musculoskeletal: back normal, gait/station normal, normal range of motion, other - 1+ pitting edema Neurologic: alert, oriented x3 Psychiatric: mood/affect normal Skin: warm/dry Medical Decision Making Diagnostic Impression: Primary Impression: COPD with acute exacerbation Additional Impression: Cocaine abuse ER Course Patient presents with a COPD exacerbation. He said he felt better after breathing treatment. He was not cooperative with necessary treatment here. He refused blood work. He said that we draw too much blood from him. He said that he is anemic. Initially, I was able to convince him to let the nurse put an IV and get blood work done. But he refused to have IV inserted area. He only wanted in his hand but there is no pain in his hand. Because refuse her, he said he said that he wants to leave. Patient is competent to make that decision to leave AMA. He refuse to sign any paperwork. EKG Diagnostic Results Rate: normal Rhythm: NSR ST Segments: no acute changes Rhythm Strip Diag. Results Rhythm Strip Time: 00:28 EP Interpretation: yes Rate: 90 Rhythm: NSR, no PVC's, no ectopy Chest X-Ray Diagnostic Results Chest X-Ray Diagnostic Results : Chest X-Ray Ordered: Yes # of Views/Limited/Complete: 1 View Indication: Shortness of Breath EP Interpretation: Yes Interpretation: no consolidation, no effusion, no pneumothorax, other - copd Impression: Other - copd Electronically Signed by: Rudi Mendoza MD Last Vital Signs Date Time Temp Pulse Resp B/P (MAP) Pulse Ox O2 Delivery O2 Flow Rate FiO2 11/05/17 23:33 92 20 Room Air 11/05/17 23:22 97.9 124/44 100 97.9 Status: improved Disposition: AGAINST MEDICAL ADVICE Condition: Stable RUDI MENDOZA M.D. Nov 05, 2017 23:42
[2017-11-05] MEDS ORDERED: Albuterol ud Inhalation HHN ONE (23:45)
[2017-11-05] MEDS ORDERED: Solu-MEDROL 125mg Inj IVP ONE (23:45)
[2017-11-05] MEDS ORDERED: Ipratropium 0.02% Inh Soln 2.5ml UD HHN ONE (23:45)
[2017-11-06 00:38] VITALS: BP 124/44
--- NOTE | 2017-11-06 10:52 | Diagnostic Imaging Report ---
Indication: Shortness of breath Technique: One view of the chest Comparison: 10/07/2017 Findings: There is old healed left rib fracture deformity again demonstrated. There is persistent scarring at the right lung base. Lungs and pleural spaces are otherwise clear. The heart size is normal. The aorta is ectatic. Findings are unchanged Impression: No acute process
== END 2017-11-06 00:38 | disposition left against medical advice (07) ==
LOC: EDBD 23:25 → EMR 23:40
DX: J44.1 Chronic obstructive pulmonary disease with (acute) exacerbation (principal); I10 Essential (primary) hypertension; Z86.73 Personal history of transient ischemic attack (TIA), and cerebral infarction without residual deficits
CPT/HCPCS: 71045; 93005; 94640; 94664; 96374; 96375; 99283

== ENCOUNTER 2019-08-14 01:14 | Inpatient (IN) | payer MEDICARE, MEDICAID ==
[~2019-08-14] VITALS: Ht 185.4 cm; Wt 78.9 kg
[2019-08-14] VITALS (8 sets, daily range): BP systolic 120–169; BP diastolic 58–104
[~2019-08-14 01:14] MED LIST changes: +ACETAMINOPHEN500 M3 ORAL
[2019-08-14] MEDS ORDERED: Solu-MEDROL 125mg Inj IVP ONE (01:30)
[2019-08-14] MEDS: Albuterol/Ipratropium 3ml neb HHN SCH ×2 (01:38→01:39)
--- NOTE | 2019-08-14 01:39 | NUR ---
ER Nurse Note: Pt brought in by ambulance from street c/o difficult breathing d/t asthma exerbation. Pt stated he his breathing gets worse with the cold weather. Pt stated his inhalers does not hurt Pt stated denies chest pain. Pt hx COPD, asthma. 1 round of breathing tx given by EMS; reported breathing is easiler after tx. All safety measures met; will continue to montior.
--- NOTE | 2019-08-14 01:46 | Emergency Room Report ---
History of Present Illness General Chief Complaint: Asthma Source: Patient Present Illness HPI Disclaimer: Please note that this report is being documented using DRAGON technology. This can lead to erroneous entry secondary to incorrect interpretation by the dictating instrument. HPI: This is a 79-year-old male history of asthma and COPD presenting for evaluation of shortness of breath. He arrives by EMS. He states that he was walking back from a fast food restaurant became more short of breath and experiencing more coughing. Recently seen in the emergency department for COPD and asthma exacerbation. He states his inhalers do not help. He reports the same dull ache over his lower sternum that he has had for 3 years. Denies any new chest pain. Denies fever or chills. He notes chronic lower extremity edema but no change. PMH: Asthma, COPD, pedal edema, former alcohol use, former drug use PSH: Reviewed Allergies: Denies Social Hx: Quit smoking 2007, former alcohol use, former drug use Allergies: Coded Allergies: No Known Allergies (Unverified , 08/14/19) Nursing Documentation-PMH Past Medical History: No History, Except For Hx Cardiac Problems: Yes Hx Hypertension: Yes Hx Asthma: Yes - bronchitis Hx COPD: Yes Hx Cancer: No Hx Gastrointestinal Problems: Yes Hx Neurological Problems: Yes Hx Cerebrovascular Accident: Yes Hx Dizziness: Yes Hx Headaches: Yes Hx Weakness: Yes Hx Fatigue: Yes Review of Systems All Other Systems: negative except mentioned in HPI Physical Exam Vital Signs Date Time Temp Pulse Resp B/P (MAP) Pulse Ox O2 Delivery O2 Flow Rate FiO2 08/14/19 01:16 97.9 112 16 169/98 (121) 100 Room Air 08/14/19 01:41 21 General: Awake and alert, no acute distress HEENT: NC/AT. EOMI. Cardiovascular: Tachycardic. S1 and S2 normal. No murmur appreciated Resp: Tachypnea. Mild increase in work of breathing. Scattered wheezes bilaterally. No crackles appreciated. Intermittent cough Abdomen: Abdomen is soft, nondistended. Nontender Skin: Intact. No abrasions, laceration or rash over the exposed skin MSK: Normal tone and bulk. Moving all extremities. No obvious deformity. 2+ pedal edema. Neuro: Awake and alert. Mentating appropriately. Medical Decision Making Diagnostic Impression: Primary Impression: Asthma Additional Impression: Tachycardia ER Course 79-year-old male presents for evaluation of shortness of breath. Differential includes resolving to asthma exacerbation, COPD exacerbation, bronchitis, pneumonia, pneumothorax, viral syndrome. Of these, likely COPD versus asthma. We will continue breathing treatments that were already started by EMS. He appears to be improving. Will repeat chest x-ray and EKG. Labs on previous hospital visit 1 week ago were within normal limits. He denies any change in his chest pain or lower extremity edema since then. Laboratory Tests Test 08/14/19 01:55 White Blood Count 9.0 K/UL (4.8-10.8) Red Blood Count 3.62 M/UL (4.70-6.10) L Hemoglobin 12.2 G/DL (14.2-18.0) L Hematocrit 35.5 % (42.0-52.0) L Mean Corpuscular Volume 98 FL (80-99) Mean Corpuscular Hemoglobin 33.7 PG (27.0-31.0) H Mean Corpuscular Hemoglobin Concent 34.4 G/DL (32.0-36.0) Red Cell Distribution Width 14.0 % (11.6-14.8) Platelet Count 127 K/UL (150-450) L Mean Platelet Volume 6.4 FL (6.5-10.1) L Neutrophils (%) (Auto) 45.4 % (45.0-75.0) Lymphocytes (%) (Auto) 42.4 % (20.0-45.0) Monocytes (%) (Auto) 10.1 % (1.0-10.0) H Eosinophils (%) (Auto) 0.2 % (0.0-3.0) Basophils (%) (Auto) 2.0 % (0.0-2.0) Sodium Level 141 MMOL/L (136-145) Potassium Level 4.0 MMOL/L (3.5-5.1) Chloride Level 103 MMOL/L (98-107) Carbon Dioxide Level 25 MMOL/L (21-32) Anion Gap 13 mmol/L (5-15) Blood Urea Nitrogen 10 mg/dL (7-18) Creatinine 0.9 MG/DL (0.55-1.30) Estimate Glomerular Filtration Rate mL/min (>60) Glucose Level 65 MG/DL (74-106) L Calcium Level 7.7 MG/DL (8.5-10.1) L Total Bilirubin 0.7 MG/DL (0.2-1.0) Aspartate Amino Transferase (AST) 97 U/L (15-37) H Alanine Aminotransferase (ALT) 53 U/L (12-78) Alkaline Phosphatase 48 U/L (46-116) Troponin I 0.000 ng/mL (0.000-0.056) Total Protein 7.0 G/DL (6.4-8.2) Albumin 3.6 G/DL (3.4-5.0) Globulin 3.4 g/dL Albumin/Globulin Ratio 1.1 (1.0-2.7) EKG Diagnostic Results EKG Time: :28 Rate: tachycardiac Rhythm: NSR ST Segments: no acute changes Other Impression Sinus tachycardia, normal axis, normal intervals, nonspecific ST segment changes. Rhythm Strip Diag. Results Rhythm Strip Time: :28 EP Interpretation: yes Rate: 120s Rhythm: NSR, no PVC's, no ectopy Chest X-Ray Diagnostic Results Chest X-Ray Diagnostic Results : Chest X-Ray Ordered: Yes # of Views/Limited/Complete: 1 View Indication: Shortness of Breath EP Interpretation: Yes Interpretation: no consolidation, no effusion, no pneumothorax Impression: No acute disease Electronically Signed by: Electronically signed by Dr. Noe Brown Reevaluation Time: 05:06 Last Vital Signs Date Time Temp Pulse Resp B/P (MAP) Pulse Ox O2 Delivery O2 Flow Rate FiO2 08/14/19 01:41 103 23 93 Room Air 21 08/14/19 01:38 97.9 169/98 Reevaluation Impression Patient received breathing treatments and steroids with some improvement however he remained tachycardic and mildly tachypneic. Patient desaturated to high 70s% while sleeping was placed on nasal cannula. He was given magnesium. Labs have returned within normal limits. No evidence of infiltrate on chest x- ray. Will admit for COPD/asthma exacerbation. Disposition: ADMITTED INPATIENT Condition: Serious Noe Brown MD Aug 14, 2019 01:46
[2019-08-14 02:07] LABS: EOSINOPHILS % (AUTO) 0.2 % (0.0-3.0); HEMATOCRIT 35.5 % (42.0-52.0); HEMOGLOBIN 12.2 G/DL (14.2-18.0); LYMPHOCYTES % (AUTO) 42.4 % (20.0-45.0); MEAN CORPUSCULAR VOLUME 98 FL (80-99); MONOCYTES % (AUTO) 10.1 % (1.0-10.0); NEUTROPHILS % (AUTO) 45.4 % (45.0-75.0); PLATELET COUNT 127 K/UL (150-450); RED BLOOD COUNT 3.62 M/UL (4.70-6.10)
[2019-08-14 02:20] LABS: ANION GAP 13 mmol/L (5-15); BLOOD UREA NITROGEN 10 mg/dL (7-18); CALCIUM 7.7 MG/DL (8.5-10.1); CARBON DIOXIDE 25 MMOL/L (21-32); CHLORIDE 103 MMOL/L (98-107); CREATININE 0.9 MG/DL (0.55-1.30); SODIUM 141 MMOL/L (136-145)
[2019-08-14 02:24] LABS: ALANINE AMINOTRANSFERASE 53 U/L (12-78); ALBUMIN 3.6 G/DL (3.4-5.0); ALBUMIN/GLOBULIN RATIO 1.1 (1.0-2.7); ALKALINE PHOSPHATASE 48 U/L (46-116); ASPARTATE AMINO TRANSFERASE 97 U/L (15-37); BILIRUBIN,TOTAL 0.7 MG/DL (0.2-1.0)
--- NOTE | 2019-08-14 03:08 | NUR ---
ER Nurse Note: Pt calm, cooperative, no signs of resp changes. 2L O2 NC applied d/t desat; made aware. 91% O2 on 2 NC. All safety measures met; will continue to montior and further orders.
--- NOTE | 2019-08-14 03:26 | Diagnostic Imaging Report ---
EXAM: XR Chest, 1 View CLINICAL HISTORY: SOB TECHNIQUE: Frontal view of the chest. COMPARISON: 08/05/2019 FINDINGS: Lungs: No consolidation or mass. Pleural space: No acute findings Heart: No cardiomegaly. Bones/joints: No acute findings. IMPRESSION: No acute cardiopulmonary process.
[2019-08-14] MEDS ORDERED: Albuterol/Ipratropium 3ml neb HHN ONE (05:15)
--- NOTE | 2019-08-14 05:53 | NUR ---
ER Nurse Note: Pt stated he has shortness of breath; ERMD aware and RT called for breathing tx and ABG. Breathing treatment administered; tolerated well. Pt remains tachycardiac, HR >110bpm, ERMD aware. All belongings accounted for and has $400 in laura. Pt stated he would like to keep it with him. Pt stated he lost $500 (did not have in ER). Pt refused to sign belongings form and refused CRE/VRE, MRSA swabs. Pt VSS, 2L NC, denies pain. Pt ambulatory, skin intact. All safety measures met; will continue to montior.
--- NOTE | 2019-08-14 06:20 | NUR ---
ER Nurse Note: On further inspection, pt found envelope of $50. Pt has total of $766. Urine sent to lab; awaiting results. Addendum: 08/14/19 at 0640 by [email or web address] ER Nurse Note: On further inspection, pt found envelope of his $50 bills. RN and second RN cound $50 x 7. Pt has total of $766. Urine sent to lab; awaiting results. All safety measures met; will continue to conor.
[2019-08-14] MEDS ORDERED: Promethazine/Codeine 5ml UD ORAL PRN (06:45)
[2019-08-14] MEDS ORDERED: LORazepam Inj 2mg/ml 1ml IV PRN (06:45)
[2019-08-14] MEDS ORDERED: Nitroglycerin Subl 0.4mg tab SL PRN (06:45)
--- NOTE | 2019-08-14 07:17 | NUR ---
ER Nurse Note: Report given to NICKOLAS Peña for continuity of care. Pt stable, no signs of distress. Endorse pt has $766 and wants to keep all valuables. No resp distress noted, no falls. All safety measures met.
--- NOTE | 2019-08-14 07:18 | NUR ---
ED Nurse Note: Received patient in bed, patient is alert awake, in no acute distress. RN asked if we can count the laura again for shift endorsement, patient refused. patient reports "no body aint going to check my laura." RN asked to sign the belongings sheet, but patient refused. "I'm not going to sign anything."
--- NOTE | 2019-08-14 07:19 | NUR ---
ED Nurse Note: notified to LOUISE Ulloa that patient is refusing to count laura and also refusing to sign.
--- NOTE | 2019-08-14 07:38 | NUR ---
ED Nurse Note: report given to Jonas OLMOS, endorsed all plan of care to Jonas OLMOS.
--- NOTE | 2019-08-14 08:08 | NUR ---
ED Nurse Note: laura counted with patient and Laila GIL - total of $766 noted, patient signed on the back of the belonging list for acknowledgement of the amount of laura he has.
--- NOTE | 2019-08-14 08:10 | NUR ---
ED Nurse Note: patient transferred on ACLS protocol with CROSS TIE MAKERSHELLY Gonzalez with all of his belongings, endorsed to Jonas OLMOS regarding the laura.
[2019-08-14] MEDS: Heparin 5000 units/ml inj SUBQ SCH ×2 (09:25→20:36)
[2019-08-14] MEDS: Theophylline ER 100mg ORAL SCH ×2 (09:25→20:34)
[2019-08-14] MEDS: Piperacillin/Tazobactam 3.375 GM in D5W 55 ML IVPB SCH ×3 (09:25→23:58)
[2019-08-14] MEDS: Solu-MEDROL 125mg Inj IV SCH ×3 (09:26→20:33)
--- NOTE | 2019-08-14 10:55 | NUR ---
NURSE NOTES: pt awake alert, no distress. no sob. call light within reach. denies pain. bed in lowest position, locked. will monitor.
[2019-08-14] MEDS: Aspirin Baby 81mg ORAL SCH (11:34)
--- NOTE | 2019-08-14 12:00 | History and Physical Report ---
DATE OF ADMISSION: 08/14/2019 TIME SEEN: At 8 a.m. CONSULTANTS: Farhan Ortega M.D. CHIEF COMPLAINT: Shortness of breath, COPD exacerbation. BRIEF HISTORY: This is a 79-year-old male, who lives at home, presented with above-mentioned diagnosis, became short of breath, increasing over the last month despite treatment. The patient came to [facility], diagnosed with the above, admitted to telemetry for further care. Currently, O2 NC, slight short of breath. . No complaint, otherwise. REVIEW OF SYSTEMS: No chest pain. Slight short of breath. No nausea, vomiting, or diarrhea. PAST MEDICAL HISTORY: Includes COPD, emphysema, CHF. He has a past medical history of hypertension, CVA, peripheral edema from the chart. PAST SURGICAL HISTORY: None. MEDICATIONS: Include heparin, theophylline, methylprednisolone, Zosyn, albuterol, lorazepam, nitroglycerin, Zofran, promethazine, temazepam, IV fluid, and albuterol. ALLERGIES: Denies. SOCIAL HISTORY: Positive smoke. Positive alcohol. No intravenous drug abuse. FAMILY HISTORY: Noncontributory. PHYSICAL EXAMINATION: GENERAL: O2 NC, slight short of breath in bed, oriented x2, in no acute distress. VITAL SIGNS: Temperature 97 degrees, pulse 98, respirations 20, blood pressure 148/72. CARDIOVASCULAR: No murmur. LUNGS: Poor air exchange. ABDOMEN: Bowel sounds distant. EXTREMITIES: No cyanosis, clubbing, or edema. NEUROLOGIC: The patient moves all extremities, slightly weak. LABORATORY AND DIAGNOSTIC DATA: Labs at this time show hemoglobin and hematocrit 12/35, platelets 127, otherwise normal. BMP shows glucose 65. Troponin 0.00. Albumin 3.6. Urine tox is negative. ASSESSMENT: 1. Exacerbation of COPD. 2. History of CVA. 3. Hypertension. 4. CHF. 5. Emphysema. 6. Anemia. PLAN: 1. O2, pulmonary treatment. 2. Resume home medications. 3. PT, OT, dietary evaluation. 4. Taper off steroids if possible. 5. We will continue to follow this patient. 6. CBC and BMP in the morning. Fred Kay D.O. DR: DIANE JOB#: [id number] CC:
[2019-08-14] MEDS ORDERED: Piperacillin/Tazobactam 2.25 GM in D5W 55 ML IV SCH (14:00)
--- NOTE | 2019-08-14 19:16 | NUR ---
HAND-OFF: Report given to BIBIANA OLMOS.
--- NOTE | 2019-08-14 19:18 | NUR ---
NURSE NOTES: PT IN STABLE CONDITION, NO COMPLAINTS. BED IN LOWEST POSITION, LOCKED. CALL LIGHT WITHIN REACH. NO DISTRESS. MD AWARE OF BP TREND, ORDERS RECEIVED.
--- NOTE | 2019-08-14 19:20 | NUR ---
NURSE NOTES: Received pt from NICKOLAS Mcdaniel. pt is observed resting in bed, responsive to verbal commands, denies pain at this time. pt is on 2 L O2 via NC, tolerating well; no s/sx of respiratory distress noted at this time. no s/sx of acute cardiac distress noted. RAC 20 g and RFA 22g IV sites are patent and intact, asymptomatic. bed in lowest position and locked, siderails up X2, call light within reach. will continue to monitor.
[2019-08-14] MEDS: Albuterol/Ipratropium 3ml neb HHN PRN (20:27)
[2019-08-15] VITALS: BP 152/85
--- NOTE | 2019-08-15 01:26 | NUR ---
NURSE NOTES: called and left message with Nivia from Dr. Kay's exchange service regarding pt's BP and pt's about SBP readings of 150s. pt in stable condition at this time. will continue to monitor. awaiting call back.
[2019-08-15] MEDS: Solu-MEDROL 125mg Inj IV SCH ×4 (01:29→21:07)
[2019-08-15 04:00] VITALS: BP 152/93
[2019-08-15] MEDS: Albuterol/Ipratropium 3ml neb HHN PRN ×3 (06:59→22:08)
--- NOTE | 2019-08-15 07:49 | NUR ---
HAND-OFF: Report given to NICKOLAS Sarmiento. pt is in stable condition.
--- NOTE | 2019-08-15 07:53 | NUR ---
NURSE NOTES: called and left message for Dr. Ortega regarding pt's ABG results. will endorse to incoming day nurse.
[2019-08-15 08:00] VITALS: BP 122/74
[2019-08-15 08:01] LABS: BASOPHILS % (AUTO) 0.3 % (0.0-2.0); EOSINOPHILS % (AUTO) 0.1 % (0.0-3.0); HEMATOCRIT 35.1 % (42.0-52.0); HEMOGLOBIN 12.6 G/DL (14.2-18.0); LYMPHOCYTES % (AUTO) 10.2 % (20.0-45.0); MEAN CORPUSCULAR VOLUME 95 FL (80-99); MONOCYTES % (AUTO) 6.8 % (1.0-10.0); NEUTROPHILS % (AUTO) 82.6 % (45.0-75.0); PLATELET COUNT 130 K/UL (150-450); RED CELL DISTRIBUTION WIDTH 13.1 % (11.6-14.8); WHITE BLOOD COUNT 5.2 K/UL (4.8-10.8)
--- NOTE | 2019-08-15 08:09 | NUR ---
NURSE NOTES: Received report from Shaunna. Patient sitting up with feet dangling over edge of bed, on room air, bed in lowest position, call light within reach, no c/o pain, no SOB, in no apparent distress.
--- NOTE | 2019-08-15 08:21 | General Progress Note ---
Assessment/Plan Problem List: (1) Emphysema ICD Codes: J43.9 - Emphysema SNOMED: 17049296 (2) CHF (congestive heart failure) ICD Codes: I50.9 - Congestive heart failure SNOMED: 39418753 (3) HTN (hypertension) ICD Codes: I10 - Essential (primary) hypertension SNOMED: 46985534 (4) COPD with acute exacerbation ICD Codes: J44.1 - Chronic obstructive pulmonary disease with (acute) exacerbation SNOMED: 184804737 (5) History of CVA (cerebrovascular accident) ICD Codes: Z86.73 - History of stroke SNOMED: 150650119 Status: stable, progressing Assessment/Plan: pt sdiwt o2 pulm tx psyc cardio eval cbc bmp am Subjective Constitutional: Reports: weakness Respiratory: Reports: shortness of breath Allergies: Coded Allergies: No Known Allergies (Unverified , 08/14/19) All Systems: reviewed and negative except above Subjective o2nc sl anxious Objective Last 24 Hour Vital Signs Date Time Temp Pulse Resp B/P (MAP) Pulse Ox O2 Delivery O2 Flow Rate FiO2 08/15/19 06:59 97 22 100 Nasal Cannula 2.0 28 65 18 95 08/15/19 04:00 96.6 87 18 152/93 (112) 96 08/15/19 04:00 88 08/15/19 03:39 152/93 08/15/19 00:00 77 08/15/19 00:00 97.7 83 18 152/85 (107) 98 08/14/19 22:02 159/95 08/14/19 21:00 Nasal Cannula 2.0 08/14/19 20:27 98 20 100 Nasal Cannula 2.0 28 98 20 96 08/14/19 20:00 98.2 93 20 159/95 (116) 97 08/14/19 16:15 90 08/14/19 15:58 164/104 08/14/19 15:34 98.0 100 20 164/104 (124) 98 08/14/19 12:13 Room Air 08/14/19 12:05 98.0 08/14/19 12:00 98.0 87 20 128/58 (81) 98 08/14/19 11:46 109 08/14/19 09:22 98.0 105 20 159/82 (107) 98 08/14/19 09:18 108 Intake and Output 2/1/20 2/2/20 19:00 07:00 Intake Total 1200 ml Balance 1200 ml Intake Oral 1200 ml # Voids 4 1 Laboratory Tests 08/15/19 06:50: White Blood Count [Pending], Red Blood Count [Pending], Hemoglobin [Pending], Hematocrit [Pending], Mean Corpuscular Volume [Pending], Mean Corpuscular Hemoglobin [Pending], Mean Corpuscular Hemoglobin Concent [Pending], Red Cell Distribution Width [Pending], Platelet Count [Pending], Mean Platelet Volume [ Pending], Neutrophils (%) (Auto) [Pending], Lymphocytes (%) (Auto) [Pending], Monocytes (%) (Auto) [Pending], Eosinophils (%) (Auto) [Pending], Basophils (%) (Auto) [Pending], Sodium Level [Pending], Potassium Level [Pending], Chloride Level [Pending], Carbon Dioxide Level [Pending], Blood Urea Nitrogen [Pending], Creatinine [Pending], Estimat Glomerular Filtration Rate [Pending], Glucose Level [Pending], Calcium Level [Pending] Height (Feet): 6 Height (Inches): 1.00 Weight (Pounds): 178 General Appearance: alert EENT: normal ENT inspection Neck: normal alignment Cardiovascular: normal peripheral pulses, normal rate, regular rhythm Respiratory/Chest: chest wall non-tender, lungs clear, normal breath sounds Abdomen: normal bowel sounds, non tender, soft Extremities: normal inspection Edema: no edema noted Arm (L), no edema noted Arm (R), no edema noted Leg (L), no edema noted Leg (R), no edema noted Pedal (L), no edema noted Pedal (R), no edema noted Generalized Neurologic: responsive, motor weakness Skin: normal pigmentation, warm/dry Fred Kay DO Aug 15, 2019 08:21
[2019-08-15 08:47] LABS: ANION GAP 6 mmol/L (5-15); BLOOD UREA NITROGEN 8 mg/dL (7-18); CALCIUM 8.1 MG/DL (8.5-10.1); CARBON DIOXIDE 33 MMOL/L (21-32); CHLORIDE 99 MMOL/L (98-107); CREATININE 0.7 MG/DL (0.55-1.30); POTASSIUM 3.6 MMOL/L (3.5-5.1); SODIUM 138 MMOL/L (136-145)
[2019-08-15] MEDS: Heparin 5000 units/ml inj SUBQ SCH ×2 (09:00→21:15)
[2019-08-15] MEDS: Piperacillin/Tazobactam 3.375 GM in D5W 55 ML IVPB SCH (09:17)
[2019-08-15] MEDS: Aspirin Baby 81mg ORAL SCH (09:18)
[2019-08-15] MEDS: Theophylline ER 100mg ORAL SCH ×2 (09:18→21:07)
[2019-08-15] MEDS ORDERED: Morphine Sulfate 2mg/ml Inj(IV/IM USE ONLY) IVP PRN (10:00)
[2019-08-15] MEDS ORDERED: NS 275ml ONE (10:05)
[2019-08-15] MEDS ORDERED: Tubing IV Secondary IV ONE (10:05)
--- NOTE | 2019-08-15 10:36 | NUR ---
PT Note Attempted to see patient for PT eval/tx. Patient adamantly refused. "I don't want any physical therapy. I can walk wherever I want to go, when I want to." Educated on the benefits of exercises, energy conservation techniques and proper breathing techniques to improve his activity tolerance and pulmonary function but patient still refused. RN was notified.
[2019-08-15] MEDS: HYDROcodone/Acetamin 5/325 tab ORAL PRN ×2 (10:54→18:19)
[2019-08-15 16:00] VITALS: BP 143/88
[2019-08-15] MEDS: Piperacillin/Tazobactam 3.375 GM in D5W 110 ML IVPB SCH ×2 (17:02→23:00)
[2019-08-15] MEDS: Memantine 5 MG TAB ORAL SCH (18:19)
--- NOTE | 2019-08-15 19:30 | NUR ---
NURSE NOTES: Received patient from Hank OLMOS. Patient in bed, on 2L NC, no signs of respiratory distress. Bed in low position, locked, call light within reach.
--- NOTE | 2019-08-15 19:49 | NUR ---
HAND-OFF: Report given to Noam Marie RN. Patient sitting HOB at 45 degrees, awake and alert, watching television, on 2 liters nasal cannula, bed in lowest position, call light within reach, pain treated with [place], in no apparent distress.
[2019-08-15 20:00] VITALS: BP 129/93
--- NOTE | 2019-08-15 21:00 | Consultation ---
DATE OF CONSULTATION: 08/15/2019 CONSULTING PHYSICIAN: Misha Bird M.D. REFERRING PHYSICIAN: Fred aKy D.O. HISTORY OF PRESENT ILLNESS: This is a 79-year-old male, who was admitted to the hospital secondary to shortness of breath and COPD. The patient has had respiratory treatments, but he has developed shortness of breath which has been increasing over the last week or so. The patient also has some confusion, some disorganized thought process, and altered mental status. He has got a decline in cognition below his baseline. That is why his attending has requested daily psychiatric consultation. He also has narcotic dependency, that is why the patient's has attending has requested daily psychiatric consultation. The patient has history of cocaine abuse. The patient is slightly confused and disorganized. He is oriented x2 to person and place, but not time or situation. He still cannot explain why he is in the hospital. He is very guarded when I asked him about his substance abuse history. PAST MEDICAL HISTORY: The patient has a history of COPD on respiratory treatment, congestive heart failure, hypertension, CVA, and peripheral edema. ALLERGIES: No known drug allergies. MEDICATIONS: As far as his psychotropic medications on admission, this patient is on a medication regimen consisting of Ativan 0.5 mg IV every 4 hours p.r.n. anxiety and agitation. SUBSTANCE ABUSE HISTORY: This patient does have a history of cocaine abuse, but he is very guarded when we asked details about it. FAMILY PSYCHIATRIC HISTORY: Denies. PAIN ASSESSMENT: 0/10. DEVELOPMENTAL PROBLEMS: Denies. SOCIAL HISTORY: This patient is financially supported by [employer] and Medicare. Apparently living in a convalescent. STRENGTHS: He is motivated to get better. He has a place to live. WEAKNESSES: He is impulsive with minimal support system. MENTAL STATUS EXAMINATION: This is a 79-year-old male patient. His appearance is disheveled. His attitude is irritable and agitated. His affect is guarded and restricted. Intellect is fair. He knows some current events and knows the last four presidents. Mood is depressed and anxious. Motor activity, psychomotor agitation. Attention span is poor because he cannot do serial sevens or spell world backwards. Orientation x2, oriented to person and place, but not time or situation. Speech is slightly disorganized. Thought process, disorganized and illogical. Thought content, some paranoid delusions. Perception is poor because of paranoid delusions. Abstract reasoning is poor because he does not understand proverbs, only has concrete thinking. Insight is poor because he does not recognize having a mood disorder. Judgment is fair because he is able to make medical decisions for himself. His short-term memory 2/3 after word recall after 5 minutes delay, so poor short-term memory. Long-term memory is intact based on the knowledge of long-term events in his life such as the high school that he went to. DIAGNOSES: 1. Major depressive disorder, mild, recurrent with psychotic features, rule out dementia with psychosis. 2. Secondary, cocaine abuse. 3. Medical, COPD, emphysema, congestive heart failure, hypertension, CVA, and peripheral edema. 4. Psychosocial stressors, financial. 5. Functional impairment, moderate. PLAN: We will continue this patient on his dose of Ativan 0.5 mg IV every 4 hours p.r.n. anxiety and agitation. In addition to that, I am going to treat this patient with medication regimen of Namenda 5 mg twice a day to prevent any further decline in his cognition. He will continued to be followed by Psychiatry throughout his hospital course. Chart reviewed. Discussed with staff. The patient was seen and assessed in his room. A 20 minutes of cognitive behavioral therapy provided to help him identify automatic negative thoughts and help him convert negative thoughts to more positive thoughts to reduce depression, anxiety, and mood lability. I would like to thank Dr. Frde Kay for this interesting consultation. Misha Bird M.D. DR: Mitzi JOB#: [id number] CC:
[2019-08-16] VITALS (7 sets, daily range): BP systolic 137–179; BP diastolic 81–101
[2019-08-16] MEDS: Solu-MEDROL 125mg Inj IV SCH ×2 (01:38→08:53)
[2019-08-16 07:01] LABS: ANION GAP 7 mmol/L (5-15); CALCIUM 8.8 MG/DL (8.5-10.1); CARBON DIOXIDE 35 MMOL/L (21-32); CHLORIDE 96 MMOL/L (98-107); CREATININE 0.8 MG/DL (0.55-1.30); POTASSIUM 3.4 MMOL/L (3.5-5.1); SODIUM 138 MMOL/L (136-145)
[2019-08-16 07:11] LABS: HEMATOCRIT 36.9 % (42.0-52.0); HEMOGLOBIN 13.5 G/DL (14.2-18.0); MEAN CORPUSCULAR VOLUME 94 FL (80-99); PLATELET COUNT 161 K/UL (150-450); RED BLOOD COUNT 3.93 M/UL (4.70-6.10); RED CELL DISTRIBUTION WIDTH 12.9 % (11.6-14.8); WHITE BLOOD COUNT 8.5 K/UL (4.8-10.8)
[2019-08-16 07:16] LABS: BLOOD UREA NITROGEN 13 mg/dL (7-18)
--- NOTE | 2019-08-16 07:30 | NUR ---
NURSE NOTES: Received pt from ERIC OLMOS. Pt is alert and awake. pt has NC 2LMP. Pt has intact iv acces LFA 22G SL. No complain of pain at this moment. pt is on continues heart monitoring. Pt is eating breakfast by observation. Dr WARD is aware about K 3.4, waiting to call back. all needs attended, bed is locked and is in the lowest position, call light within easy reach. will continue to monitor.
[2019-08-16] MEDS: Theophylline ER 100mg ORAL SCH ×2 (08:55→21:29)
[2019-08-16] MEDS: Memantine 5 MG TAB ORAL SCH (08:55)
[2019-08-16] MEDS: Aspirin Baby 81mg ORAL SCH (08:55)
[2019-08-16] MEDS: Piperacillin/Tazobactam 3.375 GM in D5W 110 ML IVPB SCH (08:55)
[2019-08-16] MEDS: Sertraline 50mg tab ORAL SCH (08:55)
[2019-08-16] MEDS: Heparin 5000 units/ml inj SUBQ SCH ×2 (08:56→21:33)
[2019-08-16] MEDS: HYDROcodone/Acetamin 5/325 tab ORAL PRN ×2 (09:03→16:57)
--- NOTE | 2019-08-16 09:48 | General Progress Note ---
Assessment/Plan Problem List: (1) Emphysema ICD Codes: J43.9 - Emphysema SNOMED: 92589352 (2) CHF (congestive heart failure) ICD Codes: I50.9 - Congestive heart failure SNOMED: 33404264 (3) HTN (hypertension) ICD Codes: I10 - Essential (primary) hypertension SNOMED: 71108950 (4) COPD with acute exacerbation ICD Codes: J44.1 - Chronic obstructive pulmonary disease with (acute) exacerbation SNOMED: 575317149 (5) History of CVA (cerebrovascular accident) ICD Codes: Z86.73 - History of stroke SNOMED: 073190701 Status: stable, progressing Assessment/Plan: pt sdiwt o2 pulm tx psyc cardio eval cbc bmp am aru eval Subjective Constitutional: Reports: weakness Allergies: Coded Allergies: No Known Allergies (Unverified , 08/14/19) All Systems: reviewed and negative except above Subjective o2nc sl anxious Objective Last 24 Hour Vital Signs Date Time Temp Pulse Resp B/P (MAP) Pulse Ox O2 Delivery O2 Flow Rate FiO2 08/16/19 09:03 137/84 08/16/19 08:00 96.7 87 19 137/84 (101) 97 08/16/19 04:00 79 08/16/19 04:00 97.9 86 20 179/101 (127) 97 08/16/19 03:46 156/81 08/16/19 02:29 74 156/81 (106) 08/16/19 00:00 106 08/16/19 00:00 97.7 86 18 163/93 (116) 99 08/15/19 22:51 144/95 08/15/19 22:08 84 18 100 Nasal Cannula 2.0 28 81 20 97 08/15/19 22:00 89 08/15/19 21:45 85 18 94 Nasal Cannula 2.0 28 08/15/19 21:00 Nasal Cannula 2.0 08/15/19 20:45 94 Nasal Cannula 2.0 28 08/15/19 20:00 97.9 89 18 129/93 (105) 96 08/15/19 18:49 98.4 08/15/19 17:00 143/88 08/15/19 16:00 99 08/15/19 16:00 98.4 75 19 143/88 (106) 97 08/15/19 12:32 69 20 100 Nasal Cannula 2.0 28 68 16 96 08/15/19 12:00 64 08/15/19 10:04 98.1 Intake and Output 08/15/19 08/16/19 19:00 07:00 Intake Total 1182.5 ml 600 ml Balance 1182.5 ml 600 ml Intake Oral 1100 ml 600 ml IV Total 82.5 ml # Voids 4 4 # Bowel Movements 2 Laboratory Tests 08/16/19 05:50: White Blood Count 8.5#, Red Blood Count 3.93L, Hemoglobin 13.5L, Hematocrit 36.9L, Mean Corpuscular Volume 94, Mean Corpuscular Hemoglobin 34.3H, Mean Corpuscular Hemoglobin Concent 36.4H, Red Cell Distribution Width 12.9, Platelet Count 161, Mean Platelet Volume 6.5, Neutrophils (%) (Auto) , Lymphocytes (%) (Auto) , Monocytes (%) (Auto) , Eosinophils (%) (Auto) , Basophils (%) (Auto) , Neutrophils % (Manual) [Pending], Lymphocytes % (Manual) [Pending], Platelet Estimate [Pending], Platelet Morphology [Pending], Sodium Level 138, Potassium Level 3.4L, Chloride Level 96L, Carbon Dioxide Level 35H, Anion Gap 7, Blood Urea Nitrogen 13, Creatinine 0.8, Estimat Glomerular Filtration Rate , Glucose Level 124H, Calcium Level 8.8 Height (Feet): 6 Height (Inches): 1.00 Weight (Pounds): 178 General Appearance: lethargic EENT: normal ENT inspection Neck: normal alignment Cardiovascular: normal peripheral pulses, normal rate, regular rhythm Respiratory/Chest: chest wall non-tender, lungs clear, normal breath sounds Abdomen: normal bowel sounds, non tender, soft Extremities: normal inspection Edema: no edema noted Arm (L), no edema noted Arm (R), no edema noted Leg (L), no edema noted Leg (R), no edema noted Pedal (L), no edema noted Pedal (R), no edema noted Generalized Neurologic: motor weakness Skin: normal pigmentation, warm/dry Fred Kay DO Aug 16, 2019 09:48
--- NOTE | 2019-08-16 10:08 | NUR ---
NURSE NOTES: Dr WARD visited pt and ordered KCL 40MEQ ONCE and is aware about pt's pain, no new order to RN. Will continue to monitor.
--- NOTE | 2019-08-16 10:31 | NUR ---
Social Work This Sw received a consult due to homelessness. This Sw met with patient who remains Alert/oriented x4, independent with ambulation, ADLs and does not require any DME. Patient explains he lives in his car, while requesting a letter for placement into [facility] detention assistance "on and ," patient unable to recall name of the program or contact number. This SW provided patient with a letter. Patient denied any substance abuse, nor verbalizing any mental health concerns (denied any SI/HI). Patient explains he receives Social Security, but strongly stating he does not want to pay for any Board and Care or low income housing. This SW provided Board/Care, Transitional Housing and [facility] information. Patient states he is living in his car, which is not running at this time. Patient refused to disclose how much his income is at this time. No other needs/concerns at this time. Transportation to be provided to location of patient choice (patient strongly he does not want assistance with placement, will make his own decisions where he plans to go/planning to back to his car at this time).
--- NOTE | 2019-08-16 10:38 | GI Initial Consult Note ---
History of Present Illness General Date patient seen: Aug 16, 2019 Time patient seen: 10:27 Reason for Hospitalization: Asthma Referring physician: MARK WARD Reason for Consultation: ABDOMINAL PAIN / DIARRHEA Present Illness HPI This is a 79-year-old male history of asthma and COPD presenting for evaluation of shortness of breath. He arrives by EMS. He states that he was walking back from a fast food restaurant became more short of breath and experiencing more coughing. Recently seen in the emergency department for COPD and asthma exacerbation. He states his inhalers do not help. He reports the same dull ache over his lower sternum that he has had for 3 years. Denies any new chest pain. Denies fever or chills. He notes chronic lower extremity edema but no change. GI consulted for reported abdominal pain and persistent diarrhea. Patient was seen, awake alert oriented x4 no apparent distress. According to the patient watery diarrhea for approximately 2 weeks but denied any hematochezia or melena. In addition, the patient has complaint of decreased appetite, states he has not eaten anything for 4 days. Complains of abdominal distention with abdominal pain more localized to the right lower quadrant. The abdomen is soft , mild distention and mild tenderness to the right lower quadrant. Unknown history of endoscopy or colonoscopy. Home Meds Active Scripts Acetaminophen* (ACETAMINOPHEN EXTRA STRENGTH*) 500 Mg Tablet, 500 MG ORAL Q6H, # 20 TAB Prov:Giovanny Mckinney MD 08/05/19 Albuterol Sulfate* (ALBUTEROL SULFATE MDI*) 8.5 Gm Hfa.aer.ad, 2 PUFF INH Q4H, # 1 INH 0 Refills Prov:Givoanny Mckinney MD 08/05/19 Albuterol Sulfate* (ALBUTEROL SULFATE MDI*) 8.5 Gm Hfa.aer.ad, 2 PUFF INH Q4H PRN for For Cough, #1 EA Prov:Giovanny Mckinney MD 01/15/17 Reported Medications Fluticasone/Salmeterol (Advair 250-50 Diskus) 1 Each Disk.w.dev, 1 PUFF INH BID , EA 09/06/15 Oxycodone Hcl* (OXYCODONE HCL*) 5 Mg Capsule, 30 MG ORAL Q4H PRN for For Pain, # 30 CAP 0 Refills 04/10/14 Med list reviewed/reconciled: Yes Allergies: Coded Allergies: No Known Allergies (Unverified , 08/14/19) Patient History History Provided By: Patient, Medical Record PMH Narrative PMH: Asthma, COPD, pedal edema, former alcohol use, former drug use PSH: Reviewed Allergies: Denies Social Hx: Quit smoking 2007, former alcohol use, former drug use Allergies: Coded Allergies: No Known Allergies (Unverified , 08/14/19) Nursing Documentation-PMH Past Medical History: No History, Except For Hx Cardiac Problems: Yes Hx Hypertension: Yes Hx Asthma: Yes - bronchitis Hx COPD: Yes Hx Cancer: No Hx Gastrointestinal Problems: Yes Hx Neurological Problems: Yes Hx Cerebrovascular Accident: Yes Hx Dizziness: Yes Hx Headaches: Yes Hx Weakness: Yes Hx Fatigue: Yes Pertinent Family History: none Social History: Denies: smoking, alcohol use, drug use, other Review of Systems All Other Systems: negative except mentioned in HPI Physical Exam Vital Signs Date Time Temp Pulse Resp B/P (MAP) Pulse Ox O2 Delivery O2 Flow Rate FiO2 08/14/19 01:16 97.9 112 16 169/98 (121) 100 Room Air 08/14/19 01:41 21 08/14/19 03:11 2.0 Sp02 EP Interpretation: reviewed, normal Labs Laboratory Tests Test 08/16/19 05:50 White Blood Count 8.5 K/UL (4.8-10.8) # Red Blood Count 3.93 M/UL (4.70-6.10) L Hemoglobin 13.5 G/DL (14.2-18.0) L Hematocrit 36.9 % (42.0-52.0) L Mean Corpuscular Volume 94 FL (80-99) Mean Corpuscular Hemoglobin 34.3 PG (27.0-31.0) H Mean Corpuscular Hemoglobin Concent 36.4 G/DL (32.0-36.0) H Red Cell Distribution Width 12.9 % (11.6-14.8) Platelet Count 161 K/UL (150-450) Mean Platelet Volume 6.5 FL (6.5-10.1) Neutrophils (%) (Auto) % (45.0-75.0) Lymphocytes (%) (Auto) % (20.0-45.0) Monocytes (%) (Auto) % (1.0-10.0) Eosinophils (%) (Auto) % (0.0-3.0) Basophils (%) (Auto) % (0.0-2.0) Differential Total Cells Counted 100 Neutrophils % (Manual) 83 % (45-75) H Lymphocytes % (Manual) 9 % (20-45) L Monocytes % (Manual) 8 % (1-10) Eosinophils % (Manual) 0 % (0-3) Basophils % (Manual) 0 % (0-2) Band Neutrophils 0 % (0-8) Platelet Estimate Adequate Platelet Morphology Normal Red Blood Cell Morphology Normal Sodium Level 138 MMOL/L (136-145) Potassium Level 3.4 MMOL/L (3.5-5.1) L Chloride Level 96 MMOL/L (98-107) L Carbon Dioxide Level 35 MMOL/L (21-32) H Anion Gap 7 mmol/L (5-15) Blood Urea Nitrogen 13 mg/dL (7-18) Creatinine 0.8 MG/DL (0.55-1.30) Estimat Glomerular Filtration Rate mL/min (>60) Glucose Level 124 MG/DL (74-106) H Calcium Level 8.8 MG/DL (8.5-10.1) General Appearance: well appearing, no apparent distress, alert Head: normocephalic EENT: PERRL/EOMI, normal ENT inspection Neck: supple Respiratory: normal breath sounds, no respiratory distress Cardiovascular: normal rate Gastrointestinal: normal inspection, non tender, soft, normal bowel sounds, distended - mild distention, tenderness - RLQ Rectal: deferred Genitourinary: deferred Musculoskeletal: normal inspection, back normal Neurologic: alert, oriented x3, responsive, normal inspection Psychiatric: normal inspection, judgement/insight normal, memory normal Skin: normal inspection, normal color, no rash, warm/dry, palpation normal, well hydrated Lymphatic: normal inspection, no adenopathy Current Medications Current Medications Medications (Trade) Dose Ordered Sig/[place] Route PRN Reason Start Time Stop Time Status Last Admin Dose Admin Acetaminophen (Tylenol) 650 mg Q4H PRN ORAL Mild Pain/Temp > 100.5 08/14/19 11:15 09/13/19 11:14 08/15/19 09:34 Acetaminophen/ Hydrocodone Bitart ([place] 5/325) 1 tab TID PRN ORAL Moderate Pain (Pain Scale 4-6) 08/15/19 10:45 2/9/20 10:44 08/16/19 09:03 Albuterol/ Ipratropium (Albuterol/ Ipratropium) 3 ml Q4H PRN HHN dyspnea 08/14/19 06:45 08/19/19 06:44 08/15/19 22:08 Aspirin (ASA) 81 mg DAILY ORAL 08/14/19 11:15 09/13/19 11:14 08/16/19 08:55 Clonidine HCl (Catapres Tab) 0.1 mg Q6H ORAL 08/14/19 16:00 09/13/19 15:59 08/16/19 09:03 Dextrose (Dextrose 50%) 25 ml Q30M PRN IV Hypoglycemia 08/14/19 06:45 09/13/19 06:44 Dextrose (Dextrose 50%) 50 ml Q30M PRN IV Hypoglycemia 08/14/19 06:45 09/13/19 06:44 Heparin Sodium (Porcine) (Heparin 5000 units/ml) 5,000 units EVERY 12 HOURS SUBQ 08/14/19 09:00 09/13/19 08:59 08/16/19 08:56 Lorazepam (Ativan 2mg/ml 1ml) 0.5 mg Q4H PRN IV For Anxiety 08/14/19 06:45 08/21/19 06:44 08/16/19 03:51 Memantine (Namenda) 5 mg BID ORAL 08/15/19 18:00 09/14/19 17:59 08/16/19 08:55 Methylprednisolone Sodium Succinate (Solu-MEDROL) 60 mg Q6H IV 08/14/19 08:00 09/13/19 07:59 08/16/19 08:53 Nitroglycerin (Ntg) 0.4 mg Q5M X 3 DOSES PRN SL Prn Chest Pain 08/14/19 06:45 09/13/19 06:44 Ondansetron HCl (Zofran) 4 mg Q6H PRN IVP Nausea & Vomiting 08/14/19 06:45 09/13/19 06:44 Piperacillin Sod/ Tazobactam Sod 3.375 gm/Dextrose 110 ml @ 27.5 mls/hr Q8H IVPB 08/15/19 16:00 08/22/19 15:59 08/16/19 08:55 Potassium Chloride (K-Dur) 40 meq ONCE ORAL 08/16/19 10:15 08/16/19 11:30 08/16/19 10:19 Promethazine HCl/ Codeine (Phenergan with Codeine) 5 ml Q6H PRN ORAL cough 08/14/19 06:45 09/13/19 06:44 Sertraline HCl (Zoloft) 25 mg DAILY ORAL 08/16/19 09:00 09/15/19 08:59 08/16/19 08:55 Temazepam (Restoril) 15 mg HSPRN PRN ORAL Insomnia 08/14/19 06:45 08/21/19 06:44 Theophylline (Rigoberto-Dur) 100 mg EVERY 12 HOURS ORAL 08/14/19 09:00 09/13/19 08:59 08/16/19 08:55 GI: Plan Problems: (1) Dehydration (2) Poor appetite (3) Diarrhea (4) Abdominal pain Plan will consider APCT if patient has persistent abdominal pain send for cdiff, stool studies to evaluate for infectious colitis will consider Imodium if needed already on zosyn on regular diet, trial of marinol H2B prn transfusions electrolyte correction will follow on a daily basis with additional recommendations outpatient GI procedures Discussed with Dr. Bright. Thank you for this patient referral, we will follow. The patient was seen and examined at bedside and all new and available data was reviewed in the patients chart. I agree with the above findings, impression and plan. (Patient seen earlier today. Signature stamp does not reflect patient encounter time.). - MD Kelly BrittEncompass Health Rehabilitation Hospital Of East ValleyVikash FAMILY PSYCHOLOGIST Aug 16, 2019 10:38
--- NOTE | 2019-08-16 11:04 | Cardiac Electrophysiology PN ---
Subjective Subjective [id number] Objective Last 24 Hour Vital Signs Date Time Temp Pulse Resp B/P (MAP) Pulse Ox O2 Delivery O2 Flow Rate FiO2 08/16/19 09:33 96.7 08/16/19 09:03 137/84 08/16/19 08:18 86 08/16/19 08:00 96.7 87 19 137/84 (101) 97 08/16/19 04:00 79 08/16/19 04:00 97.9 86 20 179/101 (127) 97 08/16/19 03:46 156/81 08/16/19 02:29 74 156/81 (106) 08/16/19 00:00 106 08/16/19 00:00 97.7 86 18 163/93 (116) 99 08/15/19 22:51 144/95 08/15/19 22:08 84 18 100 Nasal Cannula 2.0 28 81 20 97 08/15/19 22:00 89 08/15/19 21:45 85 18 94 Nasal Cannula 2.0 28 08/15/19 21:00 Nasal Cannula 2.0 08/15/19 20:45 94 Nasal Cannula 2.0 28 08/15/19 20:00 97.9 89 18 129/93 (105) 96 08/15/19 17:00 143/88 08/15/19 16:00 99 08/15/19 16:00 98.4 75 19 143/88 (106) 97 08/15/19 12:32 69 20 100 Nasal Cannula 2.0 28 68 16 96 08/15/19 12:00 64 Intake and Output 08/15/19 08/16/19 19:00 07:00 Intake Total 1182.5 ml 600 ml Balance 1182.5 ml 600 ml Intake Oral 1100 ml 600 ml IV Total 82.5 ml # Voids 4 4 # Bowel Movements 2 Laboratory Tests Test 08/16/19 05:50 White Blood Count 8.5 K/UL (4.8-10.8) # Red Blood Count 3.93 M/UL (4.70-6.10) L Hemoglobin 13.5 G/DL (14.2-18.0) L Hematocrit 36.9 % (42.0-52.0) L Mean Corpuscular Volume 94 FL (80-99) Mean Corpuscular Hemoglobin 34.3 PG (27.0-31.0) H Mean Corpuscular Hemoglobin Concent 36.4 G/DL (32.0-36.0) H Red Cell Distribution Width 12.9 % (11.6-14.8) Platelet Count 161 K/UL (150-450) Mean Platelet Volume 6.5 FL (6.5-10.1) Neutrophils (%) (Auto) % (45.0-75.0) Lymphocytes (%) (Auto) % (20.0-45.0) Monocytes (%) (Auto) % (1.0-10.0) Eosinophils (%) (Auto) % (0.0-3.0) Basophils (%) (Auto) % (0.0-2.0) Differential Total Cells Counted 100 Neutrophils % (Manual) 83 % (45-75) H Lymphocytes % (Manual) 9 % (20-45) L Monocytes % (Manual) 8 % (1-10) Eosinophils % (Manual) 0 % (0-3) Basophils % (Manual) 0 % (0-2) Band Neutrophils 0 % (0-8) Platelet Estimate Adequate Platelet Morphology Normal Red Blood Cell Morphology Normal Sodium Level 138 MMOL/L (136-145) Potassium Level 3.4 MMOL/L (3.5-5.1) L Chloride Level 96 MMOL/L (98-107) L Carbon Dioxide Level 35 MMOL/L (21-32) H Anion Gap 7 mmol/L (5-15) Blood Urea Nitrogen 13 mg/dL (7-18) Creatinine 0.8 MG/DL (0.55-1.30) Estimat Glomerular Filtration Rate mL/min (>60) Glucose Level 124 MG/DL (74-106) H Calcium Level 8.8 MG/DL (8.5-10.1) Robbin Sinha MD Aug 16, 2019 11:04
--- NOTE | 2019-08-16 12:07 | Consultation ---
History of Present Illness General Date patient seen: Aug 16, 2019 Chief Complaint: Asthma Referring physician: MARK WARD Reason for Consultation: ABDOMINAL PAIN / DIARRHEA Present Illness HPI 77-year-old male, current daily smoker with a history of chronic obstructive pulmonary disease, alcohol abuse, hypertension, presents to the hospital with several days of cough, congestion, and shortness of breath as well as wheezing. Chest x-ray was unrevealing. He denies any fevers, chills, rhinorrhea, congestion, otalgia, or sore throat. He does note cough, congestion, shortness of breath and wheezing as stated. He denies any chest pain, PND, or orthopnea. He received IV Solu-Medrol and breathing treatments with some improvement in his symptoms. He is admitted to [facility] for further management. Allergies: Coded Allergies: No Known Allergies (Unverified , 08/14/19) Medication History Scheduled Acetaminophen* (Acetaminophen Extra Strength*), 500 MG ORAL Q6H Albuterol Sulfate* (Albuterol Sulfate Mdi*), 2 PUFF INH Q4H Fluticasone/Salmeterol (Advair 250-50 Diskus), 1 PUFF INH BID, (Reported) Scheduled PRN Albuterol Sulfate* (Albuterol Sulfate Mdi*), 2 PUFF INH Q4H PRN for For Cough Oxycodone Hcl* (Oxycodone Hcl*), 30 MG ORAL Q4H PRN for For Pain, (Reported) Patient History Healthcare decision maker Resuscitation status Full Code Advanced Directive on File Past Medical/Surgical History Past Medical/Surgical History: (1) Emphysema (2) Tobacco dependence (3) History of cocaine abuse (4) Peripheral neuropathy (5) DJD (degenerative joint disease) (6) History of CVA (cerebrovascular accident) (7) Chronic back pain Review of Systems All Other Systems: negative except mentioned in HPI Physical Exam General Appearance: WD/WN Lines, tubes and drains: peripheral HEENT: normocephalic, atraumatic Neck: non-tender, supple Respiratory/Chest: expiratory wheezing Breasts: no masses Cardiovascular/Chest: normal peripheral pulses, normal rate Abdomen: normal bowel sounds, non tender Genitourinary/Rectal: normal genital exam Extremities: moderate edema Skin Exam: normal pigmentation 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 Last 24 Hour Vital Signs Date Time Temp Pulse Resp B/P (MAP) Pulse Ox O2 Delivery O2 Flow Rate FiO2 08/16/19 09:33 96.7 08/16/19 09:03 137/84 08/16/19 09:00 Nasal Cannula 2.0 08/16/19 08:18 86 08/16/19 08:00 96.7 87 19 137/84 (101) 97 08/16/19 04:00 79 08/16/19 04:00 97.9 86 20 179/101 (127) 97 08/16/19 03:46 156/81 08/16/19 02:29 74 156/81 (106) 08/16/19 00:00 106 08/16/19 00:00 97.7 86 18 163/93 (116) 99 08/15/19 22:51 144/95 08/15/19 22:08 84 18 100 Nasal Cannula 2.0 28 81 20 97 08/15/19 22:00 89 08/15/19 21:45 85 18 94 Nasal Cannula 2.0 28 08/15/19 21:00 Nasal Cannula 2.0 08/15/19 20:45 94 Nasal Cannula 2.0 28 08/15/19 20:00 97.9 89 18 129/93 (105) 96 08/15/19 17:00 143/88 08/15/19 16:00 99 08/15/19 16:00 98.4 75 19 143/88 (106) 97 08/15/19 12:32 69 20 100 Nasal Cannula 2.0 28 68 16 96 08/15/19 12:00 64 Intake and Output 08/15/19 08/16/19 19:00 07:00 Intake Total 1182.5 ml 600 ml Balance 1182.5 ml 600 ml Intake Oral 1100 ml 600 ml IV Total 82.5 ml # Voids 4 4 # Bowel Movements 2 Laboratory Tests Test 08/16/19 05:50 White Blood Count 8.5 K/UL (4.8-10.8) # Red Blood Count 3.93 M/UL (4.70-6.10) L Hemoglobin 13.5 G/DL (14.2-18.0) L Hematocrit 36.9 % (42.0-52.0) L Mean Corpuscular Volume 94 FL (80-99) Mean Corpuscular Hemoglobin 34.3 PG (27.0-31.0) H Mean Corpuscular Hemoglobin Concent 36.4 G/DL (32.0-36.0) H Red Cell Distribution Width 12.9 % (11.6-14.8) Platelet Count 161 K/UL (150-450) Mean Platelet Volume 6.5 FL (6.5-10.1) Neutrophils (%) (Auto) % (45.0-75.0) Lymphocytes (%) (Auto) % (20.0-45.0) Monocytes (%) (Auto) % (1.0-10.0) Eosinophils (%) (Auto) % (0.0-3.0) Basophils (%) (Auto) % (0.0-2.0) Differential Total Cells Counted 100 Neutrophils % (Manual) 83 % (45-75) H Lymphocytes % (Manual) 9 % (20-45) L Monocytes % (Manual) 8 % (1-10) Eosinophils % (Manual) 0 % (0-3) Basophils % (Manual) 0 % (0-2) Band Neutrophils 0 % (0-8) Platelet Estimate Adequate Platelet Morphology Normal Red Blood Cell Morphology Normal Sodium Level 138 MMOL/L (136-145) Potassium Level 3.4 MMOL/L (3.5-5.1) L Chloride Level 96 MMOL/L (98-107) L Carbon Dioxide Level 35 MMOL/L (21-32) H Anion Gap 7 mmol/L (5-15) Blood Urea Nitrogen 13 mg/dL (7-18) Creatinine 0.8 MG/DL (0.55-1.30) Estimat Glomerular Filtration Rate mL/min (>60) Glucose Level 124 MG/DL (74-106) H Calcium Level 8.8 MG/DL (8.5-10.1) Height (Feet): 6 Height (Inches): 1.00 Weight (Pounds): 178 Medications Current Medications Medications (Trade) Dose Ordered Sig/[place] Route PRN Reason Start Time Stop Time Status Last Admin Dose Admin Acetaminophen (Tylenol) 650 mg Q4H PRN ORAL Mild Pain/Temp > 100.5 08/14/19 11:15 09/13/19 11:14 08/15/19 09:34 Acetaminophen/ Hydrocodone Bitart ([place] 5/325) 1 tab TID PRN ORAL Moderate Pain (Pain Scale 4-6) 08/15/19 10:45 08/22/19 10:44 08/16/19 09:03 Albuterol/ Ipratropium (Albuterol/ Ipratropium) 3 ml Q4H PRN HHN dyspnea 08/14/19 06:45 08/19/19 06:44 08/15/19 22:08 Aspirin (ASA) 81 mg DAILY ORAL 08/14/19 11:15 09/13/19 11:14 08/16/19 08:55 Clonidine HCl (Catapres Tab) 0.1 mg Q6H ORAL 08/14/19 16:00 09/13/19 15:59 08/16/19 09:03 Dextrose (Dextrose 50%) 25 ml Q30M PRN IV Hypoglycemia 08/14/19 06:45 09/13/19 06:44 Dextrose (Dextrose 50%) 50 ml Q30M PRN IV Hypoglycemia 08/14/19 06:45 09/13/19 06:44 Dronabinol (Marinol) 2.5 mg TID ORAL 08/16/19 13:00 09/15/19 12:59 Furosemide (Lasix) 40 mg DAILY IV 08/17/19 09:00 09/15/19 20:59 UNV Heparin Sodium (Porcine) (Heparin 5000 units/ml) 5,000 units EVERY 12 HOURS SUBQ 08/14/19 09:00 09/13/19 08:59 08/16/19 08:56 Lorazepam (Ativan 2mg/ml 1ml) 0.5 mg Q4H PRN IV For Anxiety 08/14/19 06:45 08/21/19 06:44 08/16/19 03:51 Memantine (Namenda) 5 mg BID ORAL 08/15/19 18:00 09/14/19 17:59 08/16/19 08:55 Methylprednisolone Sodium Succinate (Solu-MEDROL) 60 mg DAILY IV 08/17/19 09:00 09/13/19 07:59 UNV Nitroglycerin (Ntg) 0.4 mg Q5M X 3 DOSES PRN SL Prn Chest Pain 08/14/19 06:45 09/13/19 06:44 Ondansetron HCl (Zofran) 4 mg Q6H PRN IVP Nausea & Vomiting 08/14/19 06:45 09/13/19 06:44 Promethazine HCl/ Codeine (Phenergan with Codeine) 5 ml Q6H PRN ORAL cough 08/14/19 06:45 09/13/19 06:44 Sertraline HCl (Zoloft) 25 mg DAILY ORAL 08/16/19 09:00 09/15/19 08:59 08/16/19 08:55 Temazepam (Restoril) 15 mg HSPRN PRN ORAL Insomnia 08/14/19 06:45 08/21/19 06:44 Theophylline (Rigoberto-Dur) 100 mg EVERY 12 HOURS ORAL 08/14/19 09:00 09/13/19 08:59 08/16/19 08:55 Assessment/Plan Problem List: (1) Acute exacerbation of chronic obstructive airways disease ICD Codes: J44.1 - Acute exacerbation of chronic obstructive airways disease SNOMED: 146721061 (2) Acute bronchitis ICD Codes: J20.9 - Acute bronchitis, unspecified SNOMED: 30957762 (3) Pulmonary nodule ICD Codes: R91.1 - Solitary pulmonary nodule SNOMED: 577693983 (4) Emphysema ICD Codes: J43.9 - Emphysema SNOMED: 96980441 (5) Peripheral neuropathy ICD Codes: G62.9 - Polyneuropathy, unspecified SNOMED: 06863745 (6) History of cocaine abuse ICD Codes: F14.10 - Cocaine abuse, uncomplicated SNOMED: 977589192 (7) Chronic back pain ICD Codes: G89.29 - Other chronic pain; M54.9 - Chronic back pain SNOMED: 544436988 (8) DJD (degenerative joint disease) ICD Codes: M19.90 - Unspecified osteoarthritis, unspecified site SNOMED: 040623918 Assessment/Plan: respiratory treatment titrate fio2 to sat of 92% taper solumedrol check sputum podiatry to see pain management. echo DVT prophylaxis CT chest Fahran Ortega MD Aug 16, 2019 12:07
[2019-08-16] MEDS: Dronabinol 2.5mg Cap ORAL SCH ×2 (13:33→17:00)
--- NOTE | 2019-08-16 15:29 | NUR ---
NURSE NOTES: pt is awake and stable, left unit for CT, waiting to come back.
--- NOTE | 2019-08-16 16:02 | NUR ---
CASE MANAGEMENT:REVIEW 79 YR OLD MALE BIBA FROM STRE[facility]; SOB PMH: ASTHMA SI: ASTHMA. TACHYCARDIA 97.9 112 16 169/98 100% ON RA PLR-127 GLUCOSE-65 IS: DUONEB HHN Q15 IV SOLUMEDROL IV MAG SULFATE CXR *: TO TELEMETRY
--- NOTE | 2019-08-16 16:10 | NUR ---
DISCHARGE PLANNING ORDER FOR ARU NOTED PATIENT AMBULATES INDEPENDENTLY WITH OUT DEVICES CLINICALS FAXED TO [facility] PER MD'S ORDER
--- NOTE | 2019-08-16 16:51 | Diagnostic Imaging Report ---
Indication: Chest pain. Cough shortness of breath Technique: Continuous helical transaxial imaging of the chest was obtained from the thoracic inlet to the upper abdomen after intravenous nonionic contrast administration. Coronal 2-D reformats were also obtained. Automatic Exposure Control was utilized. Total Dose length Product (DLP): 874.[address] Dose Index Volume (CTDIvol): 135 mGy Comparison: 02/04/2011, 10/08/2017 Findings: Few scattered nodules seen on the prior study from 10/08/2017 have resolved for example in the right middle lobe on the last exam imaged 30/series 5. Also in the posterior right upper lobe, series 5 image 18. Other noncalcified tiny nodules persist bilaterally. There are also calcified nodules and calcifications in the right hilum and mediastinum consistent with old granulomatous disease. There are no new nodules. Small nodes are seen in mediastinum. Aorta is mildly calcified. The heart is unremarkable. Calcifications are also noted within the spleen. The liver is hypodense consistent with fatty infiltration. IMPRESSION: Tiny scattered pulmonary nodules some calcified some noncalcified appearing stable. Some of the nodules have disappeared in the interval since the last examination within the right upper lobe. Signs of old granulomatous disease. Atherosclerotic disease Fatty liver. The CT scanner at [facility] is accredited by the [employer] and the scans are performed using dose optimization techniques as appropriate to a performed exam including Automatic Exposure control.
--- NOTE | 2019-08-16 17:00 | Consultation ---
DATE OF CONSULTATION: 08/16/2019 CARDIOLOGY CONSULTATION CONSULTING PHYSICIAN: Robbin Sinha M.D. REFERRING PHYSICIAN: Fred Kay D.O. REASON FOR CONSULTATION: Accelerated hypertension, lower extremity edema, congestive heart failure. HISTORY OF PRESENT ILLNESS: The patient is a 79-year-old gentleman with history of COPD and asthma, history of congestive heart failure who is currently homeless, lives in his car, brought in by paramedics for increasing shortness of breath. The patient was walking back from a fast food restaurant, became severely short of breath and had coughing. The patient was evaluated in the emergency room, was admitted for COPD and asthma exacerbation. The patient however has also history of congestive heart failure and has severe bilateral lower extremity edema. REVIEW OF SYSTEMS: Review of systems was negative other than what was mentioned in the history of present illness. PAST MEDICAL HISTORY: As mentioned above. FAMILY HISTORY: Noncontributory. SOCIAL HISTORY: He is homeless. Denies smoking or drinking alcohol. PHYSICAL EXAMINATION: VITAL SIGNS: Show blood pressure is 137/84, pulse is 80, respirations 18, and temperature 96.7. HEAD AND NECK: Showed no JVD. LUNGS: Decreased breath sounds with rhonchi. CARDIOVASCULAR: Regular S1 and S2 with no gallop. ABDOMEN: Soft. EXTREMITIES: Bilateral 2+ pitting edema LABORATORY AND DIAGNOSTIC DATA: EKG shows sinus rhythm and frequent PACs. Labs show white count of 8.5, hemoglobin 13.5, hematocrit 37, platelet count 161. Sodium 138, potassium 3.4, BUN of 13, creatinine 0.8, and glucose of 124. Troponin is negative. Urine toxicology was negative also. ASSESSMENT AND PLAN: 1. Severe bilateral lower extremity edema and shortness of breath. It could be due to congestive heart failure. We will check BNP and get an echocardiogram for further evaluation and management. 2. Accelerated hypertension. Blood pressure . We will start him on Lasix 40 mg daily. For blood pressure, he is also on clonidine 0.1 mg every 6 hours. 3. COPD on Rigoberto-Dur, Solu-Medrol, and antibiotic. Thank you very much for allowing me to participate in the care of this patient. Please do not hesitate to contact me for any questions regarding my evaluation. Sincerely, Robbin Sinha M.D. DR: Denisse JOB#: [id number] CC:
[2019-08-16] MEDS: Albuterol/Ipratropium 3ml neb HHN PRN (18:16)
--- NOTE | 2019-08-16 19:30 | NUR ---
NURSE NOTES: Received patient from Leonard OLMOS. Patient in bed, awake, alert and oriented. On room air, no signs of respiratory distress. Bed in low position, locked, call light within reach.
--- NOTE | 2019-08-16 19:30 | Progress Note ---
DATE: 08/16/2019 SUBJECTIVE: The patient is a 79-year-old male patient with COPD, also has shortness of breath, ____ daily psychiatric consultation at this time. increased depression and anxiety that is why his attending has requested daily psychiatric consultation. MENTAL STATUS EXAMINATION: The patient is a 79-year-old male. Appearance is disheveled. Attitude, irritable and agitated. Affect, guarded and restricted. Intellect poor. Mood, depressed and anxious. Motor activity, psychomotor agitation. Attention span is poor. Orientation x2. Speech is low volume and slurred. Thought process, disorganized and illogical. Insight and judgment is fair. DIAGNOSES: Major depressive disorder, mild recurrent with psychotic features, rule out dementia with psychosis. PLAN: Treat him with medication regimen of Zoloft at a dose of 25 mg daily. A 20 minutes of cognitive behavioral therapy to help him identify his automatic negative thoughts and convert negative thoughts to more positive thoughts to reduce depression, anxiety, and mood lability and also Ativan 0.5 mg as needed anxiety and agitation. Provide him with 20 minutes of reality-based supportive psychotherapy. Chart reviewed and discussed with staff. Seen and assessed in his room. Misha Bird M.D. DR: Mitzi JOB#: [id number] CC:
--- NOTE | 2019-08-16 19:32 | NUR ---
HAND-OFF: Report given to ERIC OLMOS. Pt is awake and stable. No BM during shift after order, endorsed to F/U for OB and stool culture.
[2019-08-16] MEDS: Bactrim-DS 1 tab ORAL SCH (21:29)
[2019-08-17] VITALS: BP 114/62
[2019-08-17 04:00] VITALS: BP 137/63
[2019-08-17 07:21] LABS: BASOPHILS % (AUTO) 0.2 % (0.0-2.0); HEMATOCRIT 38.2 % (42.0-52.0); HEMOGLOBIN 13.7 G/DL (14.2-18.0); LYMPHOCYTES % (AUTO) 14.1 % (20.0-45.0); MEAN CORPUSCULAR VOLUME 95 FL (80-99); NEUTROPHILS % (AUTO) 77.7 % (45.0-75.0); PLATELET COUNT 126 K/UL (150-450); RED BLOOD COUNT 4.04 M/UL (4.70-6.10); RED CELL DISTRIBUTION WIDTH 13.2 % (11.6-14.8); WHITE BLOOD COUNT 7.1 K/UL (4.8-10.8)
--- NOTE | 2019-08-17 07:30 | NUR ---
NURSE NOTES: Received report from NICKOLAS Santacruz. The patient is resting on the bed without acute distress or shortness of breath. The patient's bed in the lowest position, call light in reach, and fall and aspiration precaution reinforced. IV site intact and patent. The patient is not wearing NC as ordered and education given but refused to wear NC. Dr. Ortega notified. Will continue plan of care.
[2019-08-17 07:52] LABS: ANION GAP 6 mmol/L (5-15); BLOOD UREA NITROGEN 13 mg/dL (7-18); CALCIUM 8.7 MG/DL (8.5-10.1); CARBON DIOXIDE 36 MMOL/L (21-32); CHLORIDE 95 MMOL/L (98-107); CREATININE 0.8 MG/DL (0.55-1.30); POTASSIUM 3.8 MMOL/L (3.5-5.1); SODIUM 137 MMOL/L (136-145)
[2019-08-17 08:00] VITALS: BP 130/65
[2019-08-17 08:25] LABS: PHOSPHORUS 3.2 MG/DL (2.5-4.9)
--- NOTE | 2019-08-17 08:30 | NUR ---
NURSE NOTES: Dr. Sinha at the bedside assessed the patient. Due to high trend of blood pressure, Clonidine dosage and frequency changed. Will administer as ordered. Will continue plan of care.
--- NOTE | 2019-08-17 08:56 | General Progress Note ---
Assessment/Plan Problem List: (1) Fatty liver ICD Codes: K76.0 - Fatty (change of) liver, not elsewhere classified SNOMED: 142693104 (2) CHF (congestive heart failure) ICD Codes: I50.9 - Heart failure, unspecified SNOMED: 21269792 (3) Emphysema ICD Codes: J43.9 - Emphysema SNOMED: 70246384 (4) Tobacco dependence ICD Codes: F17.200 - Nicotine dependence, unspecified, uncomplicated SNOMED: 82222366 (5) DJD (degenerative joint disease) ICD Codes: M19.90 - Unspecified osteoarthritis, unspecified site SNOMED: 150689286 Status: stable, progressing Assessment/Plan: no BM per patient add colace repeat labs drug screen fu cardiology GI procedures on hold Subjective ROS Limited/Unobtainable: Yes Allergies: Coded Allergies: No Known Allergies (Unverified , 08/14/19) Objective Last 24 Hour Vital Signs Date Time Temp Pulse Resp B/P (MAP) Pulse Ox O2 Delivery O2 Flow Rate FiO2 08/17/19 04:01 74 08/17/19 04:00 96.8 80 20 137/63 (87) 94 08/17/19 03:48 137/63 08/17/19 00:00 97.5 78 20 114/62 (79) 97 08/17/19 00:00 80 08/16/19 21:29 149/93 08/16/19 21:00 Nasal Cannula 2.0 08/16/19 20:16 72 18 97 Nasal Cannula 2.0 28 08/16/19 20:16 97 Nasal Cannula 2.0 28 08/16/19 20:00 79 08/16/19 20:00 97.7 83 20 149/93 (111) 96 08/16/19 17:27 96.7 08/16/19 17:15 88 18 100 Nasal Cannula 2.0 28 92 18 97 08/16/19 16:57 142/96 08/16/19 16:15 86 08/16/19 16:00 96.7 85 19 142/96 (111) 98 08/16/19 14:03 98.1 08/16/19 12:00 98.1 71 18 157/91 (113) 96 08/16/19 11:40 70 08/16/19 09:03 137/84 08/16/19 09:00 Nasal Cannula 2.0 Intake and Output 08/16/19 08/17/19 19:00 07:00 Intake Total 335.0 ml 240 ml Output Total 1800 ml Balance -1465.0 ml 240 ml Intake Oral 280 ml 240 ml IV Total 55.0 ml Output Urine Total 1800 ml # Voids 3 3 Laboratory Tests 08/17/19 06:21: White Blood Count 7.1, Red Blood Count 4.04L, Hemoglobin 13.7L, Hematocrit 38.2L , Mean Corpuscular Volume 95, Mean Corpuscular Hemoglobin 33.9H, Mean Corpuscular Hemoglobin Concent 35.9, Red Cell Distribution Width 13.2, Platelet Count 126L, Mean Platelet Volume 7.0, Neutrophils (%) (Auto) 77.7H, Lymphocytes (%) (Auto) 14.1L, Monocytes (%) (Auto) 8.0, Eosinophils (%) (Auto) 0.0, Basophils (%) (Auto) 0.2, Sodium Level 137, Potassium Level 3.8, Chloride Level 95L, Carbon Dioxide Level 36H, Anion Gap 6, Blood Urea Nitrogen 13, Creatinine 0.8, Estimat Glomerular Filtration Rate , Glucose Level 88, Calcium Level 8.7, Phosphorus Level 3.2, Magnesium Level 1.9, Troponin I 0.000, Pro-B-Type Natriuretic Peptide 1729H Height (Feet): 6 Height (Inches): 1.00 Weight (Pounds): 178 General Appearance: alert EENT: normal ENT inspection Neck: supple Cardiovascular: normal rate Respiratory/Chest: decreased breath sounds Abdomen: normal bowel sounds, non tender, soft Extremities: non-tender Won Bright MD Aug 17, 2019 08:56
--- NOTE | 2019-08-17 09:00 | Cardiac Electrophysiology PN ---
Assessment/Plan Assessment/Plan 1. Severe bilateral lower extremity edema and shortness of breath. It could be due to congestive heart failure due to diastolic dysfunction as EF 60% BNP decreased from 2500 to 1700 on Lasix 40 iv daily 2. Accelerated hypertension. On Lasix 40 mg iv daily and change clonidine to 0.2 mg bid 3. COPD on Rigoberto-Dur, Solu-Medrol and antibiotic. SRINVIAS RN Subjective Subjective Alert in NAD. No CP or SOB Objective Last 24 Hour Vital Signs Date Time Temp Pulse Resp B/P (MAP) Pulse Ox O2 Delivery O2 Flow Rate FiO2 08/17/19 04:01 74 08/17/19 04:00 96.8 80 20 137/63 (87) 94 08/17/19 03:48 137/63 08/17/19 00:00 97.5 78 20 114/62 (79) 97 08/17/19 00:00 80 08/16/19 21:29 149/93 08/16/19 21:00 Nasal Cannula 2.0 08/16/19 20:16 72 18 97 Nasal Cannula 2.0 28 08/16/19 20:16 97 Nasal Cannula 2.0 28 08/16/19 20:00 79 08/16/19 20:00 97.7 83 20 149/93 (111) 96 08/16/19 17:27 96.7 08/16/19 17:15 88 18 100 Nasal Cannula 2.0 28 92 18 97 08/16/19 16:57 142/96 08/16/19 16:15 86 08/16/19 16:00 96.7 85 19 142/96 (111) 98 08/16/19 14:03 98.1 08/16/19 12:00 98.1 71 18 157/91 (113) 96 08/16/19 11:40 70 08/16/19 09:03 137/84 08/16/19 09:00 Nasal Cannula 2.0 Intake and Output 08/16/19 08/17/19 19:00 07:00 Intake Total 335.0 ml 240 ml Output Total 1800 ml Balance -1465.0 ml 240 ml Intake Oral 280 ml 240 ml IV Total 55.0 ml Output Urine Total 1800 ml # Voids 3 3 Laboratory Tests Test 08/17/19 06:21 White Blood Count 7.1 K/UL (4.8-10.8) Red Blood Count 4.04 M/UL (4.70-6.10) L Hemoglobin 13.7 G/DL (14.2-18.0) L Hematocrit 38.2 % (42.0-52.0) L Mean Corpuscular Volume 95 FL (80-99) Mean Corpuscular Hemoglobin 33.9 PG (27.0-31.0) H Mean Corpuscular Hemoglobin Concent 35.9 G/DL (32.0-36.0) Red Cell Distribution Width 13.2 % (11.6-14.8) Platelet Count 126 K/UL (150-450) L Mean Platelet Volume 7.0 FL (6.5-10.1) Neutrophils (%) (Auto) 77.7 % (45.0-75.0) H Lymphocytes (%) (Auto) 14.1 % (20.0-45.0) L Monocytes (%) (Auto) 8.0 % (1.0-10.0) Eosinophils (%) (Auto) 0.0 % (0.0-3.0) Basophils (%) (Auto) 0.2 % (0.0-2.0) Sodium Level 137 MMOL/L (136-145) Potassium Level 3.8 MMOL/L (3.5-5.1) Chloride Level 95 MMOL/L (98-107) L Carbon Dioxide Level 36 MMOL/L (21-32) H Anion Gap 6 mmol/L (5-15) Blood Urea Nitrogen 13 mg/dL (7-18) Creatinine 0.8 MG/DL (0.55-1.30) Estimat Glomerular Filtration Rate mL/min (>60) Glucose Level 88 MG/DL (74-106) Calcium Level 8.7 MG/DL (8.5-10.1) Phosphorus Level 3.2 MG/DL (2.5-4.9) Magnesium Level 1.9 MG/DL (1.8-2.4) Troponin I 0.000 ng/mL (0.000-0.056) Pro-B-Type Natriuretic Peptide 1729 pg/mL (0-125) H Objective HEAD AND NECK: Showed no JVD. LUNGS: Decreased breath sounds with rhonchi. CARDIOVASCULAR: Regular S1 and S2 with no gallop. ABDOMEN: Soft. EXTREMITIES: Bilateral 2+ pitting edema Robbin Sinha MD Aug 17, 2019 09:00
[2019-08-17] MEDS: Solu-MEDROL 125mg Inj IV SCH (09:14)
[2019-08-17] MEDS: Aspirin Baby 81mg ORAL SCH (09:14)
[2019-08-17] MEDS: Docusate 100mg cap ORAL SCH ×2 (09:15→17:31)
[2019-08-17] MEDS: Bactrim-DS 1 tab ORAL SCH ×2 (09:15→20:52)
[2019-08-17] MEDS: Sertraline 50mg tab ORAL SCH (09:15)
[2019-08-17] MEDS: Theophylline ER 100mg ORAL SCH ×2 (09:15→20:52)
[2019-08-17] MEDS: Dronabinol 2.5mg Cap ORAL SCH ×3 (09:15→17:31)
[2019-08-17] MEDS: Heparin 5000 units/ml inj SUBQ SCH ×2 (09:16→20:54)
[2019-08-17] MEDS: HYDROcodone/Acetamin 5/325 tab ORAL PRN (09:18)
--- NOTE | 2019-08-17 10:30 | NUR ---
NURSE NOTES: Dr. Ortega at the bedside assessed the patient. The patient is stable without acute distress or shortness of breath. Will continue plan of care.
--- NOTE | 2019-08-17 11:01 | Pulmonology Progress Note ---
Assessment/Plan Problems: (1) Acute exacerbation of chronic obstructive airways disease (2) Acute bronchitis (3) Pulmonary nodule (4) Emphysema (5) Peripheral neuropathy (6) History of cocaine abuse (7) Chronic back pain (8) DJD (degenerative joint disease) Assessment/Plan slightly better taper steroids respiratory treatment check sputum iv abx Subjective ROS Limited/Unobtainable: No HEENT: Repors: no symptoms Respiratory: Reports: no symptoms Allergies: Coded Allergies: No Known Allergies (Unverified , 08/14/19) Objective Last 24 Hour Vital Signs Date Time Temp Pulse Resp B/P (MAP) Pulse Ox O2 Delivery O2 Flow Rate FiO2 08/17/19 09:28 74 20 94 Nasal Cannula 2.0 28 08/17/19 09:28 94 Nasal Cannula 2.0 28 08/17/19 09:17 130/65 08/17/19 04:01 74 08/17/19 04:00 96.8 80 20 137/63 (87) 94 08/17/19 03:48 137/63 08/17/19 00:00 97.5 78 20 114/62 (79) 97 08/17/19 00:00 80 08/16/19 21:29 149/93 08/16/19 21:00 Nasal Cannula 2.0 08/16/19 20:16 72 18 97 Nasal Cannula 2.0 28 08/16/19 20:16 97 Nasal Cannula 2.0 28 08/16/19 20:00 79 08/16/19 20:00 97.7 83 20 149/93 (111) 96 08/16/19 17:27 96.7 08/16/19 17:15 88 18 100 Nasal Cannula 2.0 28 92 18 97 08/16/19 16:57 142/96 08/16/19 16:15 86 08/16/19 16:00 96.7 85 19 142/96 (111) 98 08/16/19 14:03 98.1 08/16/19 12:00 98.1 71 18 157/91 (113) 96 08/16/19 11:40 70 Intake and Output 08/16/19 08/17/19 19:00 07:00 Intake Total 335.0 ml 240 ml Output Total 1800 ml Balance -1465.0 ml 240 ml Intake Oral 280 ml 240 ml IV Total 55.0 ml Output Urine Total 1800 ml # Voids 3 3 General Appearance: WD/WN HEENT: normocephalic, atraumatic Respiratory/Chest: chest wall non-tender, crackles/rales Cardiovascular: normal peripheral pulses, normal rate Abdomen: normal bowel sounds, soft, non tender, no organomegaly Extremities: no cyanosis Skin: no rash 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 Lymphatic: no neck adenopathy Laboratory Tests 08/17/19 06:21: White Blood Count 7.1, Red Blood Count 4.04L, Hemoglobin 13.7L, Hematocrit 38.2L , Mean Corpuscular Volume 95, Mean Corpuscular Hemoglobin 33.9H, Mean Corpuscular Hemoglobin Concent 35.9, Red Cell Distribution Width 13.2, Platelet Count 126L, Mean Platelet Volume 7.0, Neutrophils (%) (Auto) 77.7H, Lymphocytes (%) (Auto) 14.1L, Monocytes (%) (Auto) 8.0, Eosinophils (%) (Auto) 0.0, Basophils (%) (Auto) 0.2, Sodium Level 137, Potassium Level 3.8, Chloride Level 95L, Carbon Dioxide Level 36H, Anion Gap 6, Blood Urea Nitrogen 13, Creatinine 0.8, Estimat Glomerular Filtration Rate , Glucose Level 88, Calcium Level 8.7, Phosphorus Level 3.2, Magnesium Level 1.9, Troponin I 0.000, Pro-B-Type Natriuretic Peptide 1729H Current Medications Medications (Trade) Dose Ordered Sig/[place] Route PRN Reason Start Time Stop Time Status Last Admin Dose Admin Acetaminophen (Tylenol) 650 mg Q4H PRN ORAL Mild Pain/Temp > 100.5 08/14/19 11:15 09/13/19 11:14 08/16/19 13:33 Acetaminophen/ Hydrocodone Bitart ([place] 5/325) 1 tab TID PRN ORAL Moderate Pain (Pain Scale 4-6) 08/15/19 10:45 08/22/19 10:44 08/17/19 09:18 Albuterol/ Ipratropium (Albuterol/ Ipratropium) 3 ml Q4H PRN HHN dyspnea 08/14/19 06:45 08/19/19 06:44 08/16/19 18:16 Aspirin (ASA) 81 mg DAILY ORAL 08/14/19 11:15 09/13/19 11:14 08/17/19 09:14 Clonidine HCl (Catapres tab) 0.2 mg Q12HR ORAL 08/17/19 21:00 09/16/19 20:59 Dextrose (Dextrose 50%) 25 ml Q30M PRN IV Hypoglycemia 08/14/19 06:45 09/13/19 06:44 Dextrose (Dextrose 50%) 50 ml Q30M PRN IV Hypoglycemia 08/14/19 06:45 09/13/19 06:44 Docusate Sodium (Colace) 100 mg TWICE A DAY ORAL 08/17/19 09:00 09/16/19 08:59 08/17/19 09:15 Dronabinol (Marinol) 2.5 mg TID ORAL 08/16/19 13:00 09/15/19 12:59 08/17/19 09:15 Furosemide (Lasix) 40 mg DAILY IV 08/17/19 09:00 09/15/19 20:59 08/17/19 09:14 Heparin Sodium (Porcine) (Heparin 5000 units/ml) 5,000 units EVERY 12 HOURS SUBQ 08/14/19 09:00 09/13/19 08:59 08/17/19 09:16 Lorazepam (Ativan 2mg/ml 1ml) 0.5 mg Q4H PRN IV For Anxiety 08/14/19 06:45 08/21/19 06:44 08/16/19 03:51 Methylprednisolone Sodium Succinate (Solu-MEDROL) 60 mg DAILY IV 08/17/19 09:00 09/13/19 07:59 08/17/19 09:14 Nitroglycerin (Ntg) 0.4 mg Q5M X 3 DOSES PRN SL Prn Chest Pain 08/14/19 06:45 09/13/19 06:44 Ondansetron HCl (Zofran) 4 mg Q6H PRN IVP Nausea & Vomiting 08/14/19 06:45 09/13/19 06:44 Promethazine HCl/ Codeine (Phenergan with Codeine) 5 ml Q6H PRN ORAL cough 08/14/19 06:45 09/13/19 06:44 Sertraline HCl (Zoloft) 25 mg DAILY ORAL 08/16/19 09:00 09/15/19 08:59 08/17/19 09:15 Temazepam (Restoril) 15 mg HSPRN PRN ORAL Insomnia 08/14/19 06:45 08/21/19 06:44 Theophylline (Rigoberto-Dur) 100 mg EVERY 12 HOURS ORAL 08/14/19 09:00 09/13/19 08:59 08/17/19 09:15 Trimethoprim/ Sulfamethoxazole (Bactrim-DS) 1 tab Q12HR ORAL 08/16/19 21:00 08/23/19 20:59 08/17/19 09:15 Farhan Ortega MD Aug 17, 2019 11:01
[2019-08-17 12:00] VITALS: BP 133/71
--- NOTE | 2019-08-17 13:00 | NUR ---
NURSE NOTES: The patient is stable without acute distress or shortness of breath. Will continue plan of care.
--- NOTE | 2019-08-17 13:21 | General Progress Note ---
Assessment/Plan Problem List: (1) Emphysema ICD Codes: J43.9 - Emphysema SNOMED: 87141772 (2) History of CVA (cerebrovascular accident) ICD Codes: Z86.73 - History of stroke SNOMED: 677103657 Status: stable, progressing Assessment/Plan: pt sdiwt o2 pulm tx psyc cardio eval cbc bmp am aru Subjective Constitutional: Reports: weakness Allergies: Coded Allergies: No Known Allergies (Unverified , 08/14/19) All Systems: reviewed and negative except above Subjective o2nc sl anxious Objective Last 24 Hour Vital Signs Date Time Temp Pulse Resp B/P (MAP) Pulse Ox O2 Delivery O2 Flow Rate FiO2 08/17/19 09:28 74 20 94 Nasal Cannula 2.0 28 08/17/19 09:28 94 Nasal Cannula 2.0 28 08/17/19 09:17 130/65 08/17/19 09:00 Nasal Cannula 2.0 08/17/19 08:00 97.3 84 20 130/65 (86) 96 08/17/19 08:00 63 08/17/19 04:01 74 08/17/19 04:00 96.8 80 20 137/63 (87) 94 08/17/19 03:48 137/63 08/17/19 00:00 97.5 78 20 114/62 (79) 97 08/17/19 00:00 80 08/16/19 21:29 149/93 08/16/19 21:00 Nasal Cannula 2.0 08/16/19 20:16 72 18 97 Nasal Cannula 2.0 28 08/16/19 20:16 97 Nasal Cannula 2.0 28 08/16/19 20:00 79 08/16/19 20:00 97.7 83 20 149/93 (111) 96 08/16/19 17:27 96.7 08/16/19 17:15 88 18 100 Nasal Cannula 2.0 28 92 18 97 08/16/19 16:57 142/96 08/16/19 16:15 86 08/16/19 16:00 96.7 85 19 142/96 (111) 98 08/16/19 14:03 98.1 Intake and Output 08/16/19 08/17/19 18:59 06:59 Intake Total 335.0 ml 240 ml Output Total 1800 ml Balance -1465.0 ml 240 ml Intake Oral 280 ml 240 ml IV Total 55.0 ml Output Urine Total 1800 ml # Voids 3 3 Laboratory Tests 08/17/19 06:21: White Blood Count 7.1, Red Blood Count 4.04L, Hemoglobin 13.7L, Hematocrit 38.2L , Mean Corpuscular Volume 95, Mean Corpuscular Hemoglobin 33.9H, Mean Corpuscular Hemoglobin Concent 35.9, Red Cell Distribution Width 13.2, Platelet Count 126L, Mean Platelet Volume 7.0, Neutrophils (%) (Auto) 77.7H, Lymphocytes (%) (Auto) 14.1L, Monocytes (%) (Auto) 8.0, Eosinophils (%) (Auto) 0.0, Basophils (%) (Auto) 0.2, Sodium Level 137, Potassium Level 3.8, Chloride Level 95L, Carbon Dioxide Level 36H, Anion Gap 6, Blood Urea Nitrogen 13, Creatinine 0.8, Estimat Glomerular Filtration Rate , Glucose Level 88, Calcium Level 8.7, Phosphorus Level 3.2, Magnesium Level 1.9, Troponin I 0.000, Pro-B-Type Natriuretic Peptide 1729H Height (Feet): 6 Height (Inches): 1.00 Weight (Pounds): 178 General Appearance: lethargic EENT: normal ENT inspection Neck: normal alignment Cardiovascular: normal peripheral pulses, normal rate, regular rhythm Respiratory/Chest: chest wall non-tender, lungs clear, normal breath sounds Abdomen: normal bowel sounds, non tender, soft Extremities: normal inspection Edema: no edema noted Arm (L), no edema noted Arm (R), no edema noted Leg (L), no edema noted Leg (R), no edema noted Pedal (L), no edema noted Pedal (R), no edema noted Generalized Neurologic: responsive, motor weakness Skin: normal pigmentation, warm/dry Fred Kay DO Aug 17, 2019 13:21
[2019-08-17] MEDS: Albuterol/Ipratropium 3ml neb HHN PRN ×2 (13:26→23:58)
[2019-08-17 16:00] VITALS: BP 111/74
--- NOTE | 2019-08-17 17:00 | NUR ---
NURSE NOTES: The patient is stable without acute distress or shortness of breath. Will continue plan of care.
--- NOTE | 2019-08-17 19:30 | NUR ---
HAND-OFF: Report given to NICKOLAS Garcia. The patient is resting on the bed without acute distress or shortness of breath. The patient's bed in the lowest position, call light in reach, and fall and aspiration precaution reinforced. IV site intact and patent. Endorsed plan of care.
[2019-08-17 20:00] VITALS: BP 132/77
--- NOTE | 2019-08-17 20:05 | NUR ---
NURSE NOTES: RECEIVED PATIENT RESTING IN BED, NO COMPLAINTS OF PAIN AT THIS TIME. FALL PRECAUTIONS IN PLACE: CALL LIGHT, BEDSIDE TABLE AND URINAL WITHIN REACH, BED IN LOW POSITION AND BED ALARM ON. WILL CONTINUE WITH PLAN OF CARE.
--- NOTE | 2019-08-17 20:15 | Progress Note ---
DATE: 08/17/2019 SUBJECTIVE: This is a 79-year-old male patient. He has COPD. He has altered mental status, confusion, endorses extreme depression and anxiety that is why his attending has requested daily psychiatric consultation. MENTAL STATUS EXAMINATION: This is a 79-year-old male. Appearance is disheveled. Attitude, irritable and agitated. Affect, guarded and restricted. Intellect poor. Mood, depressed and anxious. Motor activity, psychomotor agitation. Attention span is poor. Orientation x2. Speech is pressured. Thought process, disorganized and illogical. Insight and judgment is poor. DIAGNOSIS: Schizoaffective, bipolar type. PLAN: The plan for this patient is to treat him with a medication regimen of Namenda 25 mg daily , Ativan 0.5 mg IV every 4 hours p.r.n. anxiety, agitation. A 20 minutes of reality-based supportive psychotherapy provided. Chart reviewed. Discussed with staff. Seen and assessed at bedside. A 20 minutes of cognitive behavioral therapy to help him identify his automatic negative thoughts and help convert negative thoughts to more positive thoughts to reduce depression, anxiety, mood lability. Misha Bird M.D. DR: Mitzi JOB#: [id number] CC:
[2019-08-17] MEDS: cloNIDine 0.2mg Tab ORAL SCH (20:53)
--- NOTE | 2019-08-17 21:19 | NUR ---
NURSE NOTES: PATIENT REFUSED TO HAVE BED ALARM ON AND TO USE BEDSIDE COMMODE OR URINAL. INSTRUCTED PATIENT ON FALL PRECAUTIONS AND SAFETY. PATIENT VERBALIZED UNDERSTANDING AND STILL REFUSED TO HAVE BED ALARM ON OR TO USE URINAL/BEDSIDE COMMODE. WILL CONTINUE TO MONITOR.
[2019-08-18] VITALS: BP 155/95
[2019-08-18 04:00] VITALS: BP 138/77
--- NOTE | 2019-08-18 07:18 | NUR ---
HAND-OFF: Report given to Cammie GALVAN RN. PATIENT ASLEEP, NO SIGNS OF DISTRESS NOTED.
--- NOTE | 2019-08-18 07:20 | NUR ---
NURSE NOTES: Received report and patient from NICKOLAS Garcia. Patient is in bed resting, denies any pain at this time. Patient is A/Ox4, breathing even and unlabored, RA. No s/sx of acute distress noted. Bed on lowest position, bedside rails up x3. brakes engaged for safety, call light within reach. Will continue with the plan of care.
--- NOTE | 2019-08-18 07:23 | CDS Physician Query ---
Clarification is required for compliance, coding accuracy, and to reflect severity of illness for this patient Dear Robbin Weldon MD Date: 08/18/2019 Dietitian Teacher/CDS Name: Patrice Carter Assessment/Plan Assessment/Plan 1. Severe bilateral lower extremity edema and shortness of breath. It could be due to congestive heart failure due to diastolic dysfunction as EF 60% BNP decreased from 2500 to 1700 on Lasix 40 iv daily 2. Accelerated hypertension. On Lasix 40 mg iv daily and change clonidine to 0.2 mg bid 3. COPD on Rigoberto-Dur, Solu-Medrol and antibiotic. SRINIVAS RN BNP: 2463 Tx: IV FUROSEMIDE "Heart Failure / CHF" documented in Consultation notes Please Clarify: Acuity [] Acute [] Chronic [] Acute on Chronic Present on Admission: [] Yes [] No [] Clinically Undetermined Physician signature Date Please also document in your Progress Notes and/or Discharge Summary and indicate if the condition was present on admission. ELENA
[2019-08-18 08:00] VITALS: BP 136/80
[2019-08-18] MEDS: Sertraline 50mg tab ORAL SCH (08:48)
[2019-08-18] MEDS: Dronabinol 2.5mg Cap ORAL SCH ×3 (08:49→18:03)
[2019-08-18] MEDS: cloNIDine 0.2mg Tab ORAL SCH ×2 (08:49→20:49)
[2019-08-18] MEDS: Theophylline ER 100mg ORAL SCH ×2 (08:49→20:49)
[2019-08-18] MEDS: Docusate 100mg cap ORAL SCH ×2 (08:49→18:03)
[2019-08-18] MEDS: Solu-MEDROL 125mg Inj IV SCH (08:50)
[2019-08-18] MEDS: Aspirin Baby 81mg ORAL SCH (08:50)
[2019-08-18] MEDS: Bactrim-DS 1 tab ORAL SCH ×2 (08:50→20:50)
[2019-08-18] MEDS: Heparin 5000 units/ml inj SUBQ SCH ×2 (08:52→20:50)
--- NOTE | 2019-08-18 08:58 | General Progress Note ---
Assessment/Plan Problem List: (1) Fatty liver ICD Codes: K76.0 - Fatty (change of) liver, not elsewhere classified SNOMED: 574566046 (2) CHF (congestive heart failure) ICD Codes: I50.9 - Heart failure, unspecified SNOMED: 08659669 (3) Emphysema ICD Codes: J43.9 - Emphysema SNOMED: 76943136 (4) Tobacco dependence ICD Codes: F17.200 - Nicotine dependence, unspecified, uncomplicated SNOMED: 00265837 (5) DJD (degenerative joint disease) ICD Codes: M19.90 - Unspecified osteoarthritis, unspecified site SNOMED: 939555243 Status: stable, progressing Assessment/Plan: no BM per patient on colace add miralax and lactulose abd CT ordered for today repeat labs fu cardiology GI procedures on hold Subjective ROS Limited/Unobtainable: Yes Allergies: Coded Allergies: No Known Allergies (Unverified , 08/14/19) Subjective c/o abd pain Objective Last 24 Hour Vital Signs Date Time Temp Pulse Resp B/P (MAP) Pulse Ox O2 Delivery O2 Flow Rate FiO2 08/18/19 08:49 136/80 08/18/19 04:00 97.3 67 17 138/77 (97) 95 08/18/19 04:00 61 08/18/19 00:00 60 08/18/19 00:00 98.0 62 19 155/95 (115) 95 08/17/19 23:58 84 20 97 Nasal Cannula 2.0 28 82 20 96 08/17/19 21:00 Nasal Cannula 2.0 08/17/19 20:53 133/77 08/17/19 20:00 95 Nasal Cannula 2.0 28 08/17/19 20:00 97.8 64 18 132/77 (95) 96 08/17/19 20:00 80 08/17/19 20:00 68 18 96 Nasal Cannula 2.0 28 08/17/19 16:00 97.9 75 18 111/74 (86) 95 08/17/19 16:00 75 08/17/19 13:28 77 20 100 Nasal Cannula 2.0 28 76 20 97 08/17/19 12:00 98.1 87 20 133/71 (91) 97 08/17/19 12:00 65 08/17/19 09:28 74 20 94 Nasal Cannula 2.0 28 08/17/19 09:28 94 Nasal Cannula 2.0 28 08/17/19 09:17 130/65 08/17/19 09:00 Nasal Cannula 2.0 Intake and Output 08/17/19 08/18/19 19:00 07:00 Intake Total 1000 ml 120 ml Balance 1000 ml 120 ml Intake Oral 1000 ml 120 ml # Voids 5 6 Laboratory Tests 08/17/19 21:20: Urine Opiates Screen Negative, Urine Barbiturates Screen Negative, Phencyclidine (PCP) Screen Negative, Urine Amphetamines Screen Negative, Urine Benzodiazepines Screen Negative, Urine Cocaine Screen Negative, Urine Marijuana (THC) Screen PositiveH 08/18/19 08:45: White Blood Count [Pending], Red Blood Count [Pending], Hemoglobin [Pending], Hematocrit [Pending], Mean Corpuscular Volume [Pending], Mean Corpuscular Hemoglobin [Pending], Mean Corpuscular Hemoglobin Concent [Pending], Red Cell Distribution Width [Pending], Platelet Count [Pending], Mean Platelet Volume [ Pending], Neutrophils (%) (Auto) [Pending], Lymphocytes (%) (Auto) [Pending], Monocytes (%) (Auto) [Pending], Eosinophils (%) (Auto) [Pending], Basophils (%) (Auto) [Pending], Sodium Level [Pending], Potassium Level [Pending], Chloride Level [Pending], Carbon Dioxide Level [Pending], Blood Urea Nitrogen [Pending], Creatinine [Pending], Estimat Glomerular Filtration Rate [Pending], Glucose Level [Pending], Calcium Level [Pending], Total Bilirubin [Pending], Aspartate Amino Transf (AST/SGOT) [Pending], Alanine Aminotransferase (ALT/SGPT) [Pending] , Alkaline Phosphatase [Pending], Total Protein [Pending], Albumin [Pending], Globulin [Pending], Hepatitis A IgM Antibody [Pending], Hepatitis B Surface Antigen [Pending], Hepatitis B Core IgM Antibody [Pending], Hepatitis C Antibody [Pending] Height (Feet): 6 Height (Inches): 1.00 Weight (Pounds): 179 General Appearance: alert EENT: normal ENT inspection Neck: supple Cardiovascular: normal rate Respiratory/Chest: decreased breath sounds Abdomen: normal bowel sounds, soft, tender Extremities: non-tender Won Bright MD Aug 18, 2019 08:58
[2019-08-18] MEDS ORDERED: Omnipaque-300 100ml vial INJ PRN (09:00)
[2019-08-18 09:07] LABS: EOSINOPHILS % (AUTO) 0.2 % (0.0-3.0); HEMATOCRIT 36.8 % (42.0-52.0); HEMOGLOBIN 13.2 G/DL (14.2-18.0); LYMPHOCYTES % (AUTO) 25.2 % (20.0-45.0); MEAN CORPUSCULAR VOLUME 94 FL (80-99); MONOCYTES % (AUTO) 11.9 % (1.0-10.0); NEUTROPHILS % (AUTO) 61.7 % (45.0-75.0); PLATELET COUNT 119 K/UL (150-450); RED CELL DISTRIBUTION WIDTH 13.4 % (11.6-14.8); WHITE BLOOD COUNT 6.8 K/UL (4.8-10.8)
[2019-08-18] MEDS: Lactulose 10gm/15ml UDC ORAL SCH ×3 (09:20→18:03)
[2019-08-18 09:21] LABS: ALANINE AMINOTRANSFERASE 68 U/L (12-78); ALBUMIN 3.1 G/DL (3.4-5.0); ALKALINE PHOSPHATASE 32 U/L (46-116); ANION GAP 4 mmol/L (5-15); ASPARTATE AMINO TRANSFERASE 101 U/L (15-37); BILIRUBIN,TOTAL 0.3 MG/DL (0.2-1.0); BLOOD UREA NITROGEN 14 mg/dL (7-18); CALCIUM 9.2 MG/DL (8.5-10.1); CARBON DIOXIDE 36 MMOL/L (21-32); CHLORIDE 95 MMOL/L (98-107); POTASSIUM 3.7 MMOL/L (3.5-5.1); SODIUM 135 MMOL/L (136-145)
--- NOTE | 2019-08-18 09:47 | NUR ---
CASE MANAGEMENT:REVIEW 08/18/19 SI: EMPHYSEMA. ASTHMA. TACHYCARDIA 97.3 67 17 138/77 95% ON 2L/NC CO+36 IS: LACTULOSE PO TID IV LASIX QD IV SOLUMEDROL QD BACTRIM PO Q12 ASA PO QD HEPARIN SQ Q12 TYREE-DUR PO Q12 : TELEMETRY STATUS DCP: PATIENT LIVES IN HIS CAR
--- NOTE | 2019-08-18 10:23 | General Progress Note ---
Assessment/Plan Problem List: (1) Emphysema ICD Codes: J43.9 - Emphysema SNOMED: 63407015 (2) History of CVA (cerebrovascular accident) ICD Codes: Z86.73 - History of stroke SNOMED: 643802283 Status: stable, progressing Assessment/Plan: pt sdiwt o2 pulm tx psyc cardio eval cbc bmp am dc plan w hh Subjective Constitutional: Reports: weakness Respiratory: Reports: shortness of breath Allergies: Coded Allergies: No Known Allergies (Unverified , 08/14/19) All Systems: reviewed and negative except above Subjective o2nc sl anxious Objective Last 24 Hour Vital Signs Date Time Temp Pulse Resp B/P (MAP) Pulse Ox O2 Delivery O2 Flow Rate FiO2 08/18/19 09:00 Nasal Cannula 2.0 08/18/19 08:49 136/80 08/18/19 08:00 70 08/18/19 08:00 97.1 70 18 136/80 (98) 97 08/18/19 04:00 97.3 67 17 138/77 (97) 95 08/18/19 04:00 61 08/18/19 00:00 60 08/18/19 00:00 98.0 62 19 155/95 (115) 95 08/17/19 23:58 84 20 97 Nasal Cannula 2.0 28 82 20 96 08/17/19 21:00 Nasal Cannula 2.0 08/17/19 20:53 133/77 08/17/19 20:00 95 Nasal Cannula 2.0 28 08/17/19 20:00 97.8 64 18 132/77 (95) 96 08/17/19 20:00 80 08/17/19 20:00 68 18 96 Nasal Cannula 2.0 28 08/17/19 16:00 97.9 75 18 111/74 (86) 95 08/17/19 16:00 75 08/17/19 13:28 77 20 100 Nasal Cannula 2.0 28 76 20 97 08/17/19 12:00 98.1 87 20 133/71 (91) 97 08/17/19 12:00 65 Intake and Output 08/17/19 08/18/19 19:00 07:00 Intake Total 1000 ml 120 ml Balance 1000 ml 120 ml Intake Oral 1000 ml 120 ml # Voids 5 6 Laboratory Tests 08/17/19 21:20: Urine Opiates Screen Negative, Urine Barbiturates Screen Negative, Phencyclidine (PCP) Screen Negative, Urine Amphetamines Screen Negative, Urine Benzodiazepines Screen Negative, Urine Cocaine Screen Negative, Urine Marijuana (THC) Screen PositiveH 08/18/19 08:45: White Blood Count 6.8, Red Blood Count 3.90L, Hemoglobin 13.2L, Hematocrit 36.8L , Mean Corpuscular Volume 94, Mean Corpuscular Hemoglobin 33.7H, Mean Corpuscular Hemoglobin Concent 35.8, Red Cell Distribution Width 13.4, Platelet Count 119L, Mean Platelet Volume 6.5, Neutrophils (%) (Auto) 61.7, Lymphocytes ( %) (Auto) 25.2, Monocytes (%) (Auto) 11.9H, Eosinophils (%) (Auto) 0.2, Basophils (%) (Auto) 1.0, Sodium Level 135L, Potassium Level 3.7, Chloride Level 95L, Carbon Dioxide Level 36H, Anion Gap 4L, Blood Urea Nitrogen 14, Creatinine 1.0, Estimat Glomerular Filtration Rate , Glucose Level 94, Calcium Level 9.2, Total Bilirubin 0.3, Aspartate Amino Transf (AST/SGOT) 101H, Alanine Aminotransferase (ALT/SGPT) 68, Alkaline Phosphatase 32L, Total Protein 6.3L, Albumin 3.1L, Globulin 3.2, Albumin/Globulin Ratio 1.0, Hepatitis A IgM Antibody [Pending], Hepatitis B Surface Antigen [Pending], Hepatitis B Core IgM Antibody [Pending], Hepatitis C Antibody [Pending] Height (Feet): 6 Height (Inches): 1.00 Weight (Pounds): 179 General Appearance: lethargic EENT: normal ENT inspection Neck: normal alignment Cardiovascular: normal peripheral pulses, normal rate, regular rhythm Respiratory/Chest: chest wall non-tender, lungs clear, normal breath sounds Abdomen: normal bowel sounds, non tender, soft Extremities: normal inspection Edema: no edema noted Arm (L), no edema noted Arm (R), no edema noted Leg (L), no edema noted Leg (R), no edema noted Pedal (L), no edema noted Pedal (R), no edema noted Generalized Neurologic: motor weakness Skin: normal pigmentation, warm/dry Fred Kay DO Aug 18, 2019 10:23
[2019-08-18] MEDS: Albuterol/Ipratropium 3ml neb HHN PRN ×2 (11:51→21:21)
[2019-08-18 12:00] VITALS: BP 117/80
--- NOTE | 2019-08-18 12:11 | Cardiac Electrophysiology PN ---
Assessment/Plan Assessment/Plan 1. Severe bilateral lower extremity edema and shortness of breath. It could be due to congestive heart failure due to diastolic dysfunction as EF 60% BNP decreased from 2500 to 1700 on Lasix 40 iv daily 2. Accelerated hypertension. On Lasix 40 mg iv daily and clonidine 0.2 mg bid 3. COPD on Rigoberto-Dur, Solu-Medrol and antibiotic. 4. Abdominal pain. FU GI DW RN Subjective Subjective Alert in NAD.Has abdominal pain. RN at bedside Objective Last 24 Hour Vital Signs Date Time Temp Pulse Resp B/P (MAP) Pulse Ox O2 Delivery O2 Flow Rate FiO2 08/18/19 11:51 86 22 97 Nasal Cannula 2.0 28 80 16 94 08/18/19 09:00 Nasal Cannula 2.0 08/18/19 08:49 136/80 08/18/19 08:00 70 08/18/19 08:00 97.1 70 18 136/80 (98) 97 08/18/19 04:00 97.3 67 17 138/77 (97) 95 08/18/19 04:00 61 08/18/19 00:00 60 08/18/19 00:00 98.0 62 19 155/95 (115) 95 08/17/19 23:58 84 20 97 Nasal Cannula 2.0 28 82 20 96 08/17/19 21:00 Nasal Cannula 2.0 08/17/19 20:53 133/77 08/17/19 20:00 95 Nasal Cannula 2.0 28 08/17/19 20:00 97.8 64 18 132/77 (95) 96 08/17/19 20:00 80 08/17/19 20:00 68 18 96 Nasal Cannula 2.0 28 08/17/19 16:00 97.9 75 18 111/74 (86) 95 08/17/19 16:00 75 08/17/19 13:28 77 20 100 Nasal Cannula 2.0 28 76 20 97 Intake and Output 08/17/19 08/18/19 19:00 07:00 Intake Total 1000 ml 120 ml Balance 1000 ml 120 ml Intake Oral 1000 ml 120 ml # Voids 5 6 Laboratory Tests Test 08/17/19 21:20 08/18/19 08:45 Urine Opiates Screen Negative (NEGATIVE) Urine Barbiturates Screen Negative (NEGATIVE) Phencyclidine (PCP) Screen Negative (NEGATIVE) Urine Amphetamines Screen Negative (NEGATIVE) Urine Benzodiazepines Screen Negative (NEGATIVE) Urine Cocaine Screen Negative (NEGATIVE) Urine Marijuana (THC) Screen Positive (NEGATIVE) H White Blood Count 6.8 K/UL (4.8-10.8) Red Blood Count 3.90 M/UL (4.70-6.10) L Hemoglobin 13.2 G/DL (14.2-18.0) L Hematocrit 36.8 % (42.0-52.0) L Mean Corpuscular Volume 94 FL (80-99) Mean Corpuscular Hemoglobin 33.7 PG (27.0-31.0) H Mean Corpuscular Hemoglobin Concent 35.8 G/DL (32.0-36.0) Red Cell Distribution Width 13.4 % (11.6-14.8) Platelet Count 119 K/UL (150-450) L Mean Platelet Volume 6.5 FL (6.5-10.1) Neutrophils (%) (Auto) 61.7 % (45.0-75.0) Lymphocytes (%) (Auto) 25.2 % (20.0-45.0) Monocytes (%) (Auto) 11.9 % (1.0-10.0) H Eosinophils (%) (Auto) 0.2 % (0.0-3.0) Basophils (%) (Auto) 1.0 % (0.0-2.0) Sodium Level 135 MMOL/L (136-145) L Potassium Level 3.7 MMOL/L (3.5-5.1) Chloride Level 95 MMOL/L (98-107) L Carbon Dioxide Level 36 MMOL/L (21-32) H Anion Gap 4 mmol/L (5-15) L Blood Urea Nitrogen 14 mg/dL (7-18) Creatinine 1.0 MG/DL (0.55-1.30) Estimat Glomerular Filtration Rate mL/min (>60) Glucose Level 94 MG/DL (74-106) Calcium Level 9.2 MG/DL (8.5-10.1) Total Bilirubin 0.3 MG/DL (0.2-1.0) Aspartate Amino Transf (AST/SGOT) 101 U/L (15-37) H Alanine Aminotransferase (ALT/SGPT) 68 U/L (12-78) Alkaline Phosphatase 32 U/L (46-116) L Total Protein 6.3 G/DL (6.4-8.2) L Albumin 3.1 G/DL (3.4-5.0) L Globulin 3.2 g/dL Albumin/Globulin Ratio 1.0 (1.0-2.7) Hepatitis A IgM Antibody Pending Hepatitis B Surface Antigen Pending Hepatitis B Core IgM Antibody Pending Hepatitis C Antibody Pending Objective HEAD AND NECK: Showed no JVD. LUNGS: Decreased breath sounds with rhonchi. CARDIOVASCULAR: Regular S1 and S2 with no gallop. ABDOMEN: Soft. EXTREMITIES: Bilateral 2+ pitting edema Robbin Sinha MD Aug 18, 2019 12:11
--- NOTE | 2019-08-18 12:43 | Pulmonology Progress Note ---
Assessment/Plan Assessment/Plan ASSESSMENT COPD exacerbation CHF with diastolic dysfunction HTN Emphysema acute bronchitis pulm nodule tobacco abuse hx of cocaine abuse DJD with chronic back pain Hx of CVA PLAN OF CARE tele O2 HHN steroids, and taper, empiric abx, SCX if able trial of theophylline a/tussive prn DVT prophylaxis, insurance counselor on smoking cessation Nicotine patch - declined CT chest with tiny pulm nodules, some disappeared from previous exam diuresis with Lasix, monitor volumes, cardiorenal parameters, BNP trending down ECHO with pEF 60% and RVSP of 34 BP management with Clonidine, dose increased by cardio a/plt therapy with ASA, check lipid panel bowel regimen pain management urine tox negative case discussed and evaluated by supervising physician Subjective Allergies: Coded Allergies: No Known Allergies (Unverified , 08/14/19) Subjective afebrile, no leukocytosis, still some chest tightness abdominal discomfort, Objective Last 24 Hour Vital Signs Date Time Temp Pulse Resp B/P (MAP) Pulse Ox O2 Delivery O2 Flow Rate FiO2 08/18/19 11:51 86 22 97 Nasal Cannula 2.0 28 80 16 94 08/18/19 09:00 Nasal Cannula 2.0 08/18/19 08:49 136/80 08/18/19 08:00 70 08/18/19 08:00 97.1 70 18 136/80 (98) 97 08/18/19 04:00 97.3 67 17 138/77 (97) 95 08/18/19 04:00 61 08/18/19 00:00 60 08/18/19 00:00 98.0 62 19 155/95 (115) 95 08/17/19 23:58 84 20 97 Nasal Cannula 2.0 28 82 20 96 08/17/19 21:00 Nasal Cannula 2.0 08/17/19 20:53 133/77 08/17/19 20:00 95 Nasal Cannula 2.0 28 08/17/19 20:00 97.8 64 18 132/77 (95) 96 08/17/19 20:00 80 08/17/19 20:00 68 18 96 Nasal Cannula 2.0 28 08/17/19 16:00 97.9 75 18 111/74 (86) 95 08/17/19 16:00 75 08/17/19 13:28 77 20 100 Nasal Cannula 2.0 28 76 20 97 Intake and Output 08/17/19 08/18/19 19:00 07:00 Intake Total 1000 ml 120 ml Balance 1000 ml 120 ml Intake Oral 1000 ml 120 ml # Voids 5 6 General Appearance: no acute distress HEENT: normocephalic, atraumatic, anicteric, mucous membranes moist Respiratory/Chest: no respiratory distress, no accessory muscle use, expiratory wheezing Cardiovascular: normal rate, regular rhythm Abdomen: soft, non tender - mild distention Extremities: pedal pulses normal Neurologic/Psychiatric: no motor/sensory deficits, alert, responsive Musculoskeletal: normal muscle bulk Laboratory Tests 08/17/19 21:20: Urine Opiates Screen Negative, Urine Barbiturates Screen Negative, Phencyclidine (PCP) Screen Negative, Urine Amphetamines Screen Negative, Urine Benzodiazepines Screen Negative, Urine Cocaine Screen Negative, Urine Marijuana (THC) Screen PositiveH 08/18/19 08:45: White Blood Count 6.8, Red Blood Count 3.90L, Hemoglobin 13.2L, Hematocrit 36.8L , Mean Corpuscular Volume 94, Mean Corpuscular Hemoglobin 33.7H, Mean Corpuscular Hemoglobin Concent 35.8, Red Cell Distribution Width 13.4, Platelet Count 119L, Mean Platelet Volume 6.5, Neutrophils (%) (Auto) 61.7, Lymphocytes ( %) (Auto) 25.2, Monocytes (%) (Auto) 11.9H, Eosinophils (%) (Auto) 0.2, Basophils (%) (Auto) 1.0, Sodium Level 135L, Potassium Level 3.7, Chloride Level 95L, Carbon Dioxide Level 36H, Anion Gap 4L, Blood Urea Nitrogen 14, Creatinine 1.0, Estimat Glomerular Filtration Rate , Glucose Level 94, Calcium Level 9.2, Total Bilirubin 0.3, Aspartate Amino Transf (AST/SGOT) 101H, Alanine Aminotransferase (ALT/SGPT) 68, Alkaline Phosphatase 32L, Total Protein 6.3L, Albumin 3.1L, Globulin 3.2, Albumin/Globulin Ratio 1.0, Hepatitis A IgM Antibody [Pending], Hepatitis B Surface Antigen [Pending], Hepatitis B Core IgM Antibody [Pending], Hepatitis C Antibody [Pending] Current Medications Medications (Trade) Dose Ordered Sig/[place] Route PRN Reason Start Time Stop Time Status Last Admin Dose Admin Acetaminophen (Tylenol) 650 mg Q4H PRN ORAL Mild Pain/Temp > 100.5 08/14/19 11:15 09/13/19 11:14 08/16/19 13:33 Acetaminophen/ Hydrocodone Bitart ([place] 5/325) 1 tab TID PRN ORAL Moderate Pain (Pain Scale 4-6) 08/15/19 10:45 08/22/19 10:44 08/17/19 09:18 Albuterol/ Ipratropium (Albuterol/ Ipratropium) 3 ml Q4H PRN HHN dyspnea 08/14/19 06:45 08/19/19 06:44 08/18/19 11:51 Aspirin (ASA) 81 mg DAILY ORAL 08/14/19 11:15 09/13/19 11:14 08/18/19 08:50 Barium Sulfate (Readi-Cat 2) 450 ml NOW PRN ORAL Radiology Procedure 08/18/19 09:00 08/20/19 08:56 Clonidine HCl (Catapres tab) 0.2 mg Q12HR ORAL 08/17/19 21:00 09/16/19 20:59 08/18/19 08:49 Dextrose (Dextrose 50%) 25 ml Q30M PRN IV Hypoglycemia 08/14/19 06:45 09/13/19 06:44 Dextrose (Dextrose 50%) 50 ml Q30M PRN IV Hypoglycemia 08/14/19 06:45 09/13/19 06:44 Docusate Sodium (Colace) 100 mg TWICE A DAY ORAL 08/17/19 09:00 09/16/19 08:59 08/18/19 08:49 Dronabinol (Marinol) 2.5 mg TID ORAL 08/16/19 13:00 09/15/19 12:59 08/18/19 12:27 Furosemide (Lasix) 40 mg DAILY IV 08/17/19 09:00 09/15/19 20:59 08/18/19 08:50 Heparin Sodium (Porcine) (Heparin 5000 units/ml) 5,000 units EVERY 12 HOURS SUBQ 08/14/19 09:00 09/13/19 08:59 08/18/19 08:52 Iohexol (OMNIPAQUE-300 100ml) 100 ml NOW PRN INJ Radiology Procedure 08/18/19 09:00 08/20/19 08:56 Lactulose (Cephulac) 10 gm THREE TIMES A DAY ORAL 08/18/19 09:00 09/17/19 08:59 08/18/19 12:27 Lorazepam (Ativan 2mg/ml 1ml) 0.5 mg Q4H PRN IV For Anxiety 08/14/19 06:45 08/21/19 06:44 08/16/19 03:51 Methylprednisolone Sodium Succinate (Solu-MEDROL) 60 mg DAILY IV 08/17/19 09:00 09/13/19 07:59 08/18/19 08:50 Nitroglycerin (Ntg) 0.4 mg Q5M X 3 DOSES PRN SL Prn Chest Pain 08/14/19 06:45 09/13/19 06:44 Ondansetron HCl (Zofran) 4 mg Q6H PRN IVP Nausea & Vomiting 08/14/19 06:45 09/13/19 06:44 Polyethylene Glycol (Miralax) 17 gm BEDTIME ORAL 08/18/19 21:00 09/17/19 20:59 Promethazine HCl/ Codeine (Phenergan with Codeine) 5 ml Q6H PRN ORAL cough 08/14/19 06:45 09/13/19 06:44 Sertraline HCl (Zoloft) 25 mg DAILY ORAL 08/16/19 09:00 09/15/19 08:59 08/18/19 08:48 Temazepam (Restoril) 15 mg HSPRN PRN ORAL Insomnia 08/14/19 06:45 08/21/19 06:44 Theophylline (Rigoberto-Dur) 100 mg EVERY 12 HOURS ORAL 08/14/19 09:00 09/13/19 08:59 08/18/19 08:49 Trimethoprim/ Sulfamethoxazole (Bactrim-DS) 1 tab Q12HR ORAL 08/16/19 21:00 08/23/19 20:59 08/18/19 08:50 Mariana Canada S[employer]IOR [employer]AGE UNDERWRITER Aug 18, 2019 12:43
--- NOTE | 2019-08-18 14:45 | NUR ---
RD ASSESSMENT & RECOMMENDATIONS SEE CARE ACTIVITY FOR COMPLETE ASSESSMENT DAILY ESTIMATED NEEDS: Needs based on Liver, cardiac/ 82kg 25-30 kcals/kg 5684-7938 total kcals 1-1.3 g protein/kg 82-107 g total protein 20-25 mL/kg 1498-3240 total fluid mLs NUTRITION DIAGNOSIS: (1) Decreased sodium needs R/T cardiac hx, liver dysfunction as evidenced by h/o CHF w/ elev BNP (1729), on diuretics, h/o CVA, elev AST CURRENT DIET:REGULAR PO DIET RECOMMENDATIONS: Low Sodium/ texture as tolerated ADDITIONAL RECOMMENDATIONS: * Daily standing wt monitoring * Monitor lytes closely w/ Lasix, replete as needed * W/ variable Po intake at this time, monitor PO intake
--- NOTE | 2019-08-18 15:00 | NUR ---
SCRAPER TENDER CONSULT SW received a consult for home safety evaluation. Pt presents as A&O4x, irritable and uncooperative. PT reports he currently resides in his car, which is parked at [email or web address] [email or web address] [address] on [address] [facility] [address]. Pt reports he has the car duncan w/ him. PT also reports he does not own/use any DME. SW attempted to discuss home safety evaluation w/ pt. However, pt refused and stated "Baby, why do you want to know? Baby, I don't need to talk to you. Baby, you don't need to know." Pt declined to engage w/ this SW further. PT refused to participate the home safety evaluation. Per chart review, emergency contact is listed as Micky Rees (friend) [phone]. Pt declined to clarify the facesheet information and also declined to provide psychosocial information. SW encouraged pt to verbalize his needs/concerns. Pt did not respond. SW to F/U as needed. Signed: 08/18/19 at 1507 by MIKE NAM <Co-Signature Required>
[2019-08-18 16:00] VITALS: BP 130/79
--- NOTE | 2019-08-18 16:00 | Progress Note ---
DATE: 08/18/2019 SUBJECTIVE: This is a 79-year-old male with COPD. The patient is confused and disorganized. He has altered mental status worsened by stress of his medical illness and has increased anxiety and depression. That is why, the attending has requested daily psychiatric consultation. PLAN: Treat him with a medication regimen of Ativan 0.5 mg every 4 hours, Namenda 5 mg twice a day, and Zoloft 25 mg daily. A 20 minutes of cognitive behavioral therapy to help him identify his automatic negative thoughts and help him convert negative thoughts to more positive thoughts to reduce depression, anxiety, and suicidality. Chart reviewed. Discussed with staff. Seen and assessed at bedside. Misha Bird M.D. DR: TRANG JOB#: [id number] CC:
--- NOTE | 2019-08-18 19:10 | NUR ---
HAND-OFF: Report given to NICKOLAS Larson. Patient is in stable condition.
--- NOTE | 2019-08-18 19:11 | NUR ---
NURSE NOTES: Got report from Silvino OLMOS. Pt in stable condition. Denies any pain. No s/s of distress or discomfort noted. Pt resting in bed comfortably. Bed in low and locked position, call light within reach, bedside table within reach. Continue to monitor.
[2019-08-18 20:00] VITALS: BP 155/76
[2019-08-18] MEDS: Miralax 17gm pkt ORAL SCH (20:50)
[2019-08-19] VITALS: BP 141/80
[2019-08-19 04:00] VITALS: BP 139/72
[2019-08-19] MEDS: Albuterol/Ipratropium 3ml neb HHN PRN (05:41)
--- NOTE | 2019-08-19 07:25 | NUR ---
HAND-OFF: Report given to Silvino OLMOS.
--- NOTE | 2019-08-19 07:26 | NUR ---
NURSE NOTES: Received report from NICKOLAS Larson in bed resting, denies any pain at this time. Patient is A/Ox4, breathing even and unlabored, RA. No s/sx of acute distress noted. IV is intact and patent, SL. Bed on lowest position, bedside rails up x3. brakes engaged for safety, call light within reach. Will continue with the plan of care.
[2019-08-19 08:00] VITALS: BP 120/57
[2019-08-19] MEDS: Theophylline ER 100mg ORAL SCH ×2 (08:50→21:09)
[2019-08-19] MEDS: Aspirin Baby 81mg ORAL SCH (08:50)
[2019-08-19] MEDS: Docusate 100mg cap ORAL SCH ×2 (08:50→17:46)
[2019-08-19] MEDS: Sertraline 50mg tab ORAL SCH (08:52)
[2019-08-19] MEDS: Bactrim-DS 1 tab ORAL SCH ×2 (08:53→21:10)
[2019-08-19] MEDS: Dronabinol 2.5mg Cap ORAL SCH ×3 (08:53→17:46)
[2019-08-19] MEDS: cloNIDine 0.2mg Tab ORAL SCH ×2 (08:53→21:09)
[2019-08-19] MEDS: Heparin 5000 units/ml inj SUBQ SCH ×2 (08:55→21:14)
[2019-08-19] MEDS: Solu-MEDROL 125mg Inj IV SCH (08:56)
[2019-08-19] MEDS: Lactulose 10gm/15ml UDC ORAL SCH ×3 (08:56→17:46)
--- NOTE | 2019-08-19 09:29 | Cardiac Electrophysiology PN ---
Assessment/Plan Assessment/Plan 1. Severe bilateral lower extremity edema and shortness of breath. Likely due to CHF due to diastolic dysfunction as EF 60% BNP decreased from 2500 to 1700 on Lasix 40 iv daily 2. Accelerated hypertension. On Lasix 40 mg iv daily and clonidine 0.2 mg bid 3. COPD on Rigoberto-Dur, Solu-Medrol and antibiotic. 4. Abdominal pain. Abd US was negative, FU GI DW RN Subjective Subjective Alert with no SOB. Still has abdominal pain. RN at bedside. In SR Objective Last 24 Hour Vital Signs Date Time Temp Pulse Resp B/P (MAP) Pulse Ox O2 Delivery O2 Flow Rate FiO2 08/19/19 08:53 120/57 08/19/19 05:41 68 18 99 Nasal Cannula 2.0 28 69 16 96 08/19/19 04:00 65 08/19/19 04:00 97.5 71 18 139/72 (94) 95 08/19/19 00:00 97.7 66 18 141/80 (100) 95 08/19/19 00:00 71 08/18/19 21:24 97 Nasal Cannula 2.0 28 08/18/19 21:24 61 18 97 Nasal Cannula 2.0 28 08/18/19 21:22 63 18 99 Nasal Cannula 2.0 28 61 16 97 08/18/19 21:00 Nasal Cannula 2.0 08/18/19 20:49 155/76 08/18/19 20:00 97.4 66 18 155/76 (102) 95 08/18/19 20:00 68 08/18/19 16:00 78 08/18/19 16:00 97.5 77 20 130/79 (96) 94 08/18/19 12:00 65 08/18/19 12:00 97.6 72 18 117/80 (92) 97 08/18/19 11:51 86 22 97 Nasal Cannula 2.0 28 80 16 94 Intake and Output 08/18/19 08/19/19 19:00 07:00 # Voids 3 3 Objective HEAD AND NECK: Showed no JVD. LUNGS: Decreased breath sounds with rhonchi. CARDIOVASCULAR: Regular S1 and S2 with no gallop. ABDOMEN: Soft. EXTREMITIES: Bilateral 2+ pitting edema Robbin Sinha MD Aug 19, 2019 09:29
--- NOTE | 2019-08-19 09:34 | Diagnostic Imaging Report ---
INDICATION: Abdominal pain TECHNIQUE: Continuous helical transaxial imaging of the abdomen and pelvis was obtained from the lung bases to the pubic symphysis during intravenous contrast administration. Coronal 2-D reformats were also obtained. Study obtained in a Siemens sensation [address] Automatic Exposure Control was utilized. Total Dose length Product (DLP): 1019.[address] Dose Index Volume (CTDIvol): 18.1 mGy COMPARISON: None FINDINGS: Lungs: There are reticular densities at the lung bases nonspecific. Paraseptal blebs are noted at the right lung base suggestive of mild fibrosis.. Liver: The liver is diffusely hypodense consistent with fatty infiltration. Portal vein enhances normally. Gallbladder/biliary system: No gallstones are identified. There is no evidence of intrahepatic or extrahepatic biliary ductal dilatation. Spleen: Punctate calcifications are noted within the spleen which is normal size Pancreas: Unremarkable Kidneys: No hydronephrosis identified. Both kidneys enhance symmetrically.. Adrenal glands: Unremarkable Aorta/IVC: The aorta is mildly calcified. There is no aneurysm. Bowel: Few diverticula noted in the colon. No evidence of acute diverticulitis. The appendix is normal. Bladder: Unremarkable Peritoneum: There is a small left inguinal hernia containing fat. There is no free fluid.. Bones: There is narrowing of intervertebral discs and accompanying endplate osteophyte formation. Hypertrophied facet joints also demonstrated. Disc disease is severe at L3-4 and L4-5. Osteopenia noted. The femoral heads appear somewhat sclerotic. AVN is not excluded. Please correlate clinically. IMPRESSION: Fatty liver. Suggestion of mild fibrosis at the right lung base. Other interstitial opacities nonspecific. Calcified granulomata within the spleen Moderate atherosclerotic vascular disease. Tiny left inguinal hernia containing fat Mild diverticulosis of the colon. Sclerotic appearing femoral heads. Query AVN. Moderate degenerative changes of the spine with severe disease in the lower lumbar spine. The CT scanner at [facility] is accredited by the [employer] and the scans are performed using dose optimization techniques as appropriate to a performed exam including Automatic Exposure control.
[2019-08-19 10:16] LABS: BASOPHILS % (AUTO) 0.8 % (0.0-2.0); EOSINOPHILS % (AUTO) 0.2 % (0.0-3.0); HEMOGLOBIN 13.5 G/DL (14.2-18.0); LYMPHOCYTES % (AUTO) 23.7 % (20.0-45.0); MEAN CORPUSCULAR VOLUME 95 FL (80-99); MONOCYTES % (AUTO) 13.4 % (1.0-10.0); NEUTROPHILS % (AUTO) 61.9 % (45.0-75.0); PLATELET COUNT 142 K/UL (150-450); RED BLOOD COUNT 4.01 M/UL (4.70-6.10); RED CELL DISTRIBUTION WIDTH 13.4 % (11.6-14.8); WHITE BLOOD COUNT 8.4 K/UL (4.8-10.8)
[2019-08-19 10:35] LABS: ALANINE AMINOTRANSFERASE 160 U/L (12-78); ALBUMIN 3.4 G/DL (3.4-5.0); ALKALINE PHOSPHATASE 39 U/L (46-116); ANION GAP 6 mmol/L (5-15); ASPARTATE AMINO TRANSFERASE 182 U/L (15-37); BILIRUBIN,TOTAL 0.3 MG/DL (0.2-1.0); BLOOD UREA NITROGEN 14 mg/dL (7-18); CALCIUM 8.8 MG/DL (8.5-10.1); CARBON DIOXIDE 35 MMOL/L (21-32); CHLORIDE 93 MMOL/L (98-107); CREATININE 1.1 MG/DL (0.55-1.30); POTASSIUM 3.5 MMOL/L (3.5-5.1); SODIUM 134 MMOL/L (136-145)
--- NOTE | 2019-08-19 11:34 | GI Progress Note ---
Assessment/Plan Problems: (1) Constipation ICD Codes: K59.00 - Constipation, unspecified SNOMED: 32775234 (2) Fatty liver ICD Codes: K76.0 - Fatty (change of) liver, not elsewhere classified SNOMED: 581972204 Status: stable, unchanged Status Narrative Discussed with Dr. Bright. Assessment/Plan no BM per patient abd CT reviewed, unremarkable. on colace cont miralax and lactulose mag citrate x1 repeat labs fu cardiology GI procedures on hold The patient was seen and examined at bedside and all new and available data was reviewed in the patients chart. I agree with the above findings, impression and plan. (Patient seen earlier today. Signature stamp does not reflect patient encounter time.). - Won Bright MD Subjective Subjective no BM Objective Last 24 Hour Vital Signs Date Time Temp Pulse Resp B/P (MAP) Pulse Ox O2 Delivery O2 Flow Rate FiO2 08/19/19 09:00 Nasal Cannula 2.0 08/19/19 08:53 120/57 08/19/19 08:00 81 08/19/19 08:00 97.8 81 20 120/57 (78) 96 08/19/19 05:41 68 18 99 Nasal Cannula 2.0 28 69 16 96 08/19/19 04:00 65 08/19/19 04:00 97.5 71 18 139/72 (94) 95 08/19/19 00:00 97.7 66 18 141/80 (100) 95 08/19/19 00:00 71 08/18/19 21:24 97 Nasal Cannula 2.0 28 08/18/19 21:24 61 18 97 Nasal Cannula 2.0 28 08/18/19 21:22 63 18 99 Nasal Cannula 2.0 28 61 16 97 08/18/19 21:00 Nasal Cannula 2.0 08/18/19 20:49 155/76 08/18/19 20:00 97.4 66 18 155/76 (102) 95 08/18/19 20:00 68 08/18/19 16:00 78 08/18/19 16:00 97.5 77 20 130/79 (96) 94 08/18/19 12:00 65 08/18/19 12:00 97.6 72 18 117/80 (92) 97 08/18/19 11:51 86 22 97 Nasal Cannula 2.0 28 80 16 94 Intake and Output 08/18/19 08/19/19 19:00 07:00 # Voids 3 3 Laboratory Tests Test 08/19/19 10:00 White Blood Count 8.4 K/UL (4.8-10.8) Red Blood Count 4.01 M/UL (4.70-6.10) L Hemoglobin 13.5 G/DL (14.2-18.0) L Hematocrit 38.0 % (42.0-52.0) L Mean Corpuscular Volume 95 FL (80-99) Mean Corpuscular Hemoglobin 33.6 PG (27.0-31.0) H Mean Corpuscular Hemoglobin Concent 35.4 G/DL (32.0-36.0) Red Cell Distribution Width 13.4 % (11.6-14.8) Platelet Count 142 K/UL (150-450) L Mean Platelet Volume 6.7 FL (6.5-10.1) Neutrophils (%) (Auto) 61.9 % (45.0-75.0) Lymphocytes (%) (Auto) 23.7 % (20.0-45.0) Monocytes (%) (Auto) 13.4 % (1.0-10.0) H Eosinophils (%) (Auto) 0.2 % (0.0-3.0) Basophils (%) (Auto) 0.8 % (0.0-2.0) Sodium Level 134 MMOL/L (136-145) L Potassium Level 3.5 MMOL/L (3.5-5.1) Chloride Level 93 MMOL/L (98-107) L Carbon Dioxide Level 35 MMOL/L (21-32) H Anion Gap 6 mmol/L (5-15) Blood Urea Nitrogen 14 mg/dL (7-18) Creatinine 1.1 MG/DL (0.55-1.30) Estimat Glomerular Filtration Rate mL/min (>60) Glucose Level 104 MG/DL (74-106) Calcium Level 8.8 MG/DL (8.5-10.1) Total Bilirubin 0.3 MG/DL (0.2-1.0) Aspartate Amino Transf (AST/SGOT) 182 U/L (15-37) H Alanine Aminotransferase (ALT/SGPT) 160 U/L (12-78) H Alkaline Phosphatase 39 U/L (46-116) L Total Protein 6.8 G/DL (6.4-8.2) Albumin 3.4 G/DL (3.4-5.0) Globulin 3.4 g/dL Albumin/Globulin Ratio 1.0 (1.0-2.7) Height (Feet): 6 Height (Inches): 1.00 Weight (Pounds): 179 General Appearance: WD/WN, no apparent distress, alert Cardiovascular: normal rate Respiratory/Chest: normal breath sounds, no respiratory distress Abdominal Exam: normal bowel sounds, non tender, soft Extremities: normal range of motion, non-tender Sunita Mendoza NP Aug 19, 2019 11:34
[2019-08-19 12:00] VITALS: BP 112/63
[2019-08-19] MEDS ORDERED: Magnesium Citrate Liq Btl ORAL SCH (12:00)
--- NOTE | 2019-08-19 12:31 | General Progress Note ---
Assessment/Plan Problem List: (1) Emphysema ICD Codes: J43.9 - Emphysema SNOMED: 95565931 (2) History of CVA (cerebrovascular accident) ICD Codes: Z86.73 - History of stroke SNOMED: 473795656 Status: stable, progressing Assessment/Plan: pt sdiwt o2 pulm tx psyc cardio eval cbc bmp am dc plan w hh Subjective Constitutional: Reports: weakness Allergies: Coded Allergies: No Known Allergies (Unverified , 08/14/19) All Systems: reviewed and negative except above Subjective o2nc sl anxious Objective Last 24 Hour Vital Signs Date Time Temp Pulse Resp B/P (MAP) Pulse Ox O2 Delivery O2 Flow Rate FiO2 08/19/19 12:00 97.9 77 20 112/63 (79) 96 08/19/19 12:00 77 08/19/19 09:00 Nasal Cannula 2.0 08/19/19 08:53 120/57 08/19/19 08:00 81 08/19/19 08:00 97.8 81 20 120/57 (78) 96 08/19/19 05:41 68 18 99 Nasal Cannula 2.0 28 69 16 96 08/19/19 04:00 65 08/19/19 04:00 97.5 71 18 139/72 (94) 95 08/19/19 00:00 97.7 66 18 141/80 (100) 95 08/19/19 00:00 71 08/18/19 21:24 97 Nasal Cannula 2.0 28 08/18/19 21:24 61 18 97 Nasal Cannula 2.0 28 08/18/19 21:22 63 18 99 Nasal Cannula 2.0 28 61 16 97 08/18/19 21:00 Nasal Cannula 2.0 08/18/19 20:49 155/76 08/18/19 20:00 97.4 66 18 155/76 (102) 95 08/18/19 20:00 68 08/18/19 16:00 78 08/18/19 16:00 97.5 77 20 130/79 (96) 94 Intake and Output 08/18/19 08/19/19 19:00 07:00 # Voids 3 3 Laboratory Tests 08/19/19 10:00: White Blood Count 8.4, Red Blood Count 4.01L, Hemoglobin 13.5L, Hematocrit 38.0L , Mean Corpuscular Volume 95, Mean Corpuscular Hemoglobin 33.6H, Mean Corpuscular Hemoglobin Concent 35.4, Red Cell Distribution Width 13.4, Platelet Count 142L, Mean Platelet Volume 6.7, Neutrophils (%) (Auto) 61.9, Lymphocytes ( %) (Auto) 23.7, Monocytes (%) (Auto) 13.4H, Eosinophils (%) (Auto) 0.2, Basophils (%) (Auto) 0.8, Sodium Level 134L, Potassium Level 3.5, Chloride Level 93L, Carbon Dioxide Level 35H, Anion Gap 6, Blood Urea Nitrogen 14, Creatinine 1.1, Estimat Glomerular Filtration Rate , Glucose Level 104, Calcium Level 8.8, Total Bilirubin 0.3, Aspartate Amino Transf (AST/SGOT) 182H, Alanine Aminotransferase (ALT/SGPT) 160H, Alkaline Phosphatase 39L, Total Protein 6.8, Albumin 3.4, Globulin 3.4, Albumin/Globulin Ratio 1.0 Height (Feet): 6 Height (Inches): 1.00 Weight (Pounds): 179 General Appearance: alert EENT: normal ENT inspection Neck: normal alignment Cardiovascular: normal peripheral pulses, normal rate, regular rhythm Respiratory/Chest: chest wall non-tender, lungs clear, normal breath sounds Abdomen: normal bowel sounds, non tender, soft Extremities: normal inspection Edema: no edema noted Arm (L), no edema noted Arm (R), no edema noted Leg (L), no edema noted Leg (R), no edema noted Pedal (L), no edema noted Pedal (R), no edema noted Generalized Neurologic: motor weakness Skin: normal pigmentation, warm/dry Fred Kay DO Aug 19, 2019 12:31
--- NOTE | 2019-08-19 13:18 | Pulmonology Progress Note ---
Assessment/Plan Problems: (1) Acute exacerbation of chronic obstructive airways disease (2) Acute bronchitis (3) Pulmonary nodule (4) Emphysema (5) Peripheral neuropathy (6) History of cocaine abuse (7) Chronic back pain (8) DJD (degenerative joint disease) Assessment/Plan med/surg slightly better taper steroids respiratory treatment check sputum iv abx stool for OB CT chest reviewed. Subjective ROS Limited/Unobtainable: No Interval Events: still short of breath, c/o abdominal pain Allergies: Coded Allergies: No Known Allergies (Unverified , 08/14/19) Objective Last 24 Hour Vital Signs Date Time Temp Pulse Resp B/P (MAP) Pulse Ox O2 Delivery O2 Flow Rate FiO2 08/19/19 12:00 97.9 77 20 112/63 (79) 96 08/19/19 12:00 77 08/19/19 09:00 Nasal Cannula 2.0 08/19/19 08:53 120/57 08/19/19 08:00 81 08/19/19 08:00 97.8 81 20 120/57 (78) 96 08/19/19 05:41 68 18 99 Nasal Cannula 2.0 28 69 16 96 08/19/19 04:00 65 08/19/19 04:00 97.5 71 18 139/72 (94) 95 08/19/19 00:00 97.7 66 18 141/80 (100) 95 08/19/19 00:00 71 08/18/19 21:24 97 Nasal Cannula 2.0 28 08/18/19 21:24 61 18 97 Nasal Cannula 2.0 28 08/18/19 21:22 63 18 99 Nasal Cannula 2.0 28 61 16 97 08/18/19 21:00 Nasal Cannula 2.0 08/18/19 20:49 155/76 08/18/19 20:00 97.4 66 18 155/76 (102) 95 08/18/19 20:00 68 08/18/19 16:00 78 08/18/19 16:00 97.5 77 20 130/79 (96) 94 Intake and Output 08/18/19 08/19/19 19:00 07:00 # Voids 3 3 General Appearance: WD/WN HEENT: normocephalic Respiratory/Chest: chest wall non-tender, crackles/rales Cardiovascular: normal peripheral pulses, normal rate Abdomen: normal bowel sounds, soft, non tender Genitourinary: normal external genitalia Extremities: no cyanosis Skin: no rash 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/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: 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 grossly normal Lymphatic: no neck adenopathy Musculoskeletal: normal muscle bulk Laboratory Tests 08/19/19 10:00: White Blood Count 8.4, Red Blood Count 4.01L, Hemoglobin 13.5L, Hematocrit 38.0L , Mean Corpuscular Volume 95, Mean Corpuscular Hemoglobin 33.6H, Mean Corpuscular Hemoglobin Concent 35.4, Red Cell Distribution Width 13.4, Platelet Count 142L, Mean Platelet Volume 6.7, Neutrophils (%) (Auto) 61.9, Lymphocytes ( %) (Auto) 23.7, Monocytes (%) (Auto) 13.4H, Eosinophils (%) (Auto) 0.2, Basophils (%) (Auto) 0.8, Sodium Level 134L, Potassium Level 3.5, Chloride Level 93L, Carbon Dioxide Level 35H, Anion Gap 6, Blood Urea Nitrogen 14, Creatinine 1.1, Estimat Glomerular Filtration Rate , Glucose Level 104, Calcium Level 8.8, Total Bilirubin 0.3, Aspartate Amino Transf (AST/SGOT) 182H, Alanine Aminotransferase (ALT/SGPT) 160H, Alkaline Phosphatase 39L, Total Protein 6.8, Albumin 3.4, Globulin 3.4, Albumin/Globulin Ratio 1.0 Current Medications Medications (Trade) Dose Ordered Sig/[place]ila Route PRN Reason Start Time Stop Time Status Last Admin Dose Admin Acetaminophen (Tylenol) 650 mg Q4H PRN ORAL Mild Pain/Temp > 100.5 08/14/19 11:15 09/13/19 11:14 08/16/19 13:33 Acetaminophen/ Hydrocodone Bitart ([place] 5/325) 1 tab TID PRN ORAL Moderate Pain (Pain Scale 4-6) 08/15/19 10:45 08/22/19 10:44 08/17/19 09:18 Albuterol/ Ipratropium (Albuterol/ Ipratropium) 3 ml Q4H PRN HHN dyspnea 08/18/19 12:45 08/23/19 12:44 08/19/19 05:41 Aspirin (ASA) 81 mg DAILY ORAL 08/14/19 11:15 09/13/19 11:14 08/19/19 08:50 Barium Sulfate (Readi-Cat 2) 450 ml NOW PRN ORAL Radiology Procedure 08/18/19 09:00 08/20/19 08:56 Clonidine HCl (Catapres tab) 0.2 mg Q12HR ORAL 08/17/19 21:00 09/16/19 20:59 08/19/19 08:53 Dextrose (Dextrose 50%) 25 ml Q30M PRN IV Hypoglycemia 08/14/19 06:45 09/13/19 06:44 Dextrose (Dextrose 50%) 50 ml Q30M PRN IV Hypoglycemia 08/14/19 06:45 09/13/19 06:44 Docusate Sodium (Colace) 100 mg TWICE A DAY ORAL 08/17/19 09:00 09/16/19 08:59 08/19/19 08:50 Dronabinol (Marinol) 2.5 mg TID ORAL 08/16/19 13:00 09/15/19 12:59 08/19/19 12:49 Furosemide (Lasix) 40 mg DAILY IV 08/17/19 09:00 09/15/19 20:59 08/19/19 08:55 Heparin Sodium (Porcine) (Heparin 5000 units/ml) 5,000 units EVERY 12 HOURS SUBQ 08/14/19 09:00 09/13/19 08:59 08/19/19 08:55 Iohexol (OMNIPAQUE-300 100ml) 100 ml NOW PRN INJ Radiology Procedure 08/18/19 09:00 08/20/19 08:56 Lactulose (Cephulac) 10 gm THREE TIMES A DAY ORAL 08/18/19 09:00 09/17/19 08:59 08/19/19 12:49 Lorazepam (Ativan 2mg/ml 1ml) 0.5 mg Q4H PRN IV For Anxiety 08/14/19 06:45 08/21/19 06:44 08/16/19 03:51 Magnesium Citrate (Citrate Of Magnesia) 300 ml ONCE ORAL 08/19/19 12:00 08/19/19 15:00 08/19/19 12:49 Methylprednisolone Sodium Succinate (Solu-MEDROL) 60 mg DAILY IV 08/17/19 09:00 09/13/19 07:59 08/19/19 08:56 Nitroglycerin (Ntg) 0.4 mg Q5M X 3 DOSES PRN SL Prn Chest Pain 08/14/19 06:45 09/13/19 06:44 Ondansetron HCl (Zofran) 4 mg Q6H PRN IVP Nausea & Vomiting 08/14/19 06:45 09/13/19 06:44 Polyethylene Glycol (Miralax) 17 gm BEDTIME ORAL 08/18/19 21:00 09/17/19 20:59 08/18/19 20:50 Promethazine HCl/ Codeine (Phenergan with Codeine) 5 ml Q6H PRN ORAL cough 08/14/19 06:45 09/13/19 06:44 Sertraline HCl (Zoloft) 25 mg DAILY ORAL 08/16/19 09:00 09/15/19 08:59 08/19/19 08:52 Temazepam (Restoril) 15 mg HSPRN PRN ORAL Insomnia 08/14/19 06:45 08/21/19 06:44 Theophylline (Rigoberto-Dur) 100 mg EVERY 12 HOURS ORAL 08/14/19 09:00 09/13/19 08:59 08/19/19 08:50 Trimethoprim/ Sulfamethoxazole (Bactrim-DS) 1 tab Q12HR ORAL 08/16/19 21:00 08/23/19 20:59 08/19/19 08:53 Farhan Ortega MD Aug 19, 2019 13:18
[2019-08-19 16:00] VITALS: BP 109/72
--- NOTE | 2019-08-19 19:17 | NUR ---
HAND-OFF: Report given to NICKOLAS Larson.Endorsed plan of care.
[2019-08-19 20:00] VITALS: BP 133/83
[2019-08-19] MEDS: Miralax 17gm pkt ORAL SCH (21:00)
--- NOTE | 2019-08-19 22:30 | Progress Note ---
DATE: 08/19/2019 SUBJECTIVE: This is a 79-year-old male patient. He is in hospital with chronic obstructive pulmonary disease but he has altered mental status, but increased anxiety and depression worsened by stress of his medical illness that is why, attending physician has requested daily psychiatric consultation. MENTAL STATUS EXAMINATION: The patient is a 79-year-old male. Appearance is disheveled. Attitude, irritable and agitated. Affect, guarded and restricted. Intellect poor. Mood, depressed and anxious. Motor activity, psychomotor agitation. Attention span is poor. Orientation x2. Speech is low volume, slurred. Thought process, disorganized and illogical. Insight and judgment is poor. DIAGNOSIS: Major depressive disorder, severe, recurrent, rule out dementia with psychosis. PLAN: Treat with Zoloft 25 mg daily, Ativan 0.5 IV every 4 hours p.r.n. anxiety and agitation. A 20 minutes of cognitive behavioral therapy to help him identify his automatic negative thoughts and help him convert his negative thoughts to more positive thoughts to reduce depression, anxiety, suicidality and mood lability. Chart reviewed. Discussed with staff. Seen and assessed in his room. Misha Bird M.D. DR: Mitzi JOB#: [id number] CC:
[2019-08-20] VITALS: BP 138/81
[2019-08-20] MEDS: Albuterol/Ipratropium 3ml neb HHN PRN ×2 (00:51→17:49)
[2019-08-20 04:00] VITALS: BP 144/65
--- NOTE | 2019-08-20 07:30 | NUR ---
HAND-OFF: Report given to Min RN.
[2019-08-20] MEDS ORDERED: Simethicone Drops 80mg/1.2ml ORAL PRN (07:45)
[2019-08-20] MEDS: Simethicone 80mg tab ORAL PRN ×2 (07:55→20:22)
--- NOTE | 2019-08-20 07:59 | NUR ---
NURSE NOTES: Received report from Neo OLMOS. Pt in bed awake and orientedx4. Denied SOB. Iv site in LFA 22G SL patent and asymptomatic. C/O epigastric pain. Will give Simethicone for epigastric pain. Bed in lowest position and locked. Found the patient's own med albuterol HHN at the bedside. Pt refused sending the med to pharmacy and refusing to put the med in the bag. Explained the patient about the policy of the hospital but he refused it. Pt able to make needs known. Will inform the MD. Will continue to plan of care
[2019-08-20 08:00] VITALS: BP 112/51
[2019-08-20] MEDS ORDERED: Pantoprazole Inj IVP SCH (09:00)
[2019-08-20] MEDS: Heparin 5000 units/ml inj SUBQ SCH ×3 (09:00→20:12)
[2019-08-20] MEDS: Sertraline 50mg tab ORAL SCH (09:21)
[2019-08-20] MEDS: Lactulose 10gm/15ml UDC ORAL SCH ×4 (09:21→18:00)
[2019-08-20] MEDS: Bactrim-DS 1 tab ORAL SCH ×2 (09:21→20:14)
[2019-08-20] MEDS: Dronabinol 2.5mg Cap ORAL SCH ×3 (09:21→18:22)
[2019-08-20] MEDS: Aspirin Baby 81mg ORAL SCH (09:22)
[2019-08-20] MEDS: Pantoprazole Inj IVP SCH (09:22)
[2019-08-20] MEDS: Sucralfate 1gm tab ORAL SCH ×3 (09:22→18:22)
[2019-08-20] MEDS: Solu-MEDROL 125mg Inj IV SCH (09:22)
[2019-08-20] MEDS: Docusate 100mg cap ORAL SCH ×2 (09:22→18:00)
[2019-08-20] MEDS: Theophylline ER 100mg ORAL SCH ×2 (09:23→20:14)
[2019-08-20] MEDS: cloNIDine 0.2mg Tab ORAL SCH ×2 (09:26→20:14)
--- NOTE | 2019-08-20 09:45 | NUR ---
CASE MANAGEMENT:REVIEW 08/20/19 SI: COPD. ACUTE BRONCHITIS. EMPHYSEMA PULMONARY NODULE 97.8 65 18 144/65 95% ON 2L/NC IS: IV SOLUMEDROL QD IV LASIX QD BACTRIM PO Q12 ASA PO QD THEOPHYLLINE PO Q12 IV ATIVAN Q4HRS PRN HEPARIN SQ Q12 : MED/SURG STATUS ON TELEMETRY DCP: LIVES IN HIS CAR PLAN: TAPER STEROIDS WEAN OFF OXYGEN DIURESIS
--- NOTE | 2019-08-20 09:50 | NUR ---
DISCHARGE PLANNING PER CONVERSATION WITH PATIENT HE LIVES IN HIS CAR AND UPON DISCHARGE HE WANTS TO GO BACK TO HIS CAR PATIENT IS NOT AGREEABLE TO PLACEMENT AT THIS TIME UNABLE TO DISCHARGE PATIENT TO HIS CAR WITH OXYGEN....NEED TO WEAN OFF OXYGEN IF POSSIBLE
--- NOTE | 2019-08-20 10:08 | Cardiac Electrophysiology PN ---
Assessment/Plan Assessment/Plan 1. Severe bilateral lower extremity edema and shortness of breath. Likely due to CHF due to diastolic dysfunction as EF 60% BNP decreased from 2500 to 1700 . Continue Lasix 40 iv daily 2. Accelerated HTN. On Lasix 40 mg iv daily and clonidine 0.2 mg bid 3. COPD on Rigoberto-Dur, Solu-Medrol and antibiotic. 4. Abdominal pain. Abd US was negative, FU GI DW RN Subjective Subjective Alert with no CP but says still SOB. RN at bedside. In SR Objective Last 24 Hour Vital Signs Date Time Temp Pulse Resp B/P (MAP) Pulse Ox O2 Delivery O2 Flow Rate FiO2 08/20/19 09:26 112/51 08/20/19 04:00 97.8 65 18 144/65 (91) 95 08/20/19 04:00 61 08/20/19 00:51 74 18 99 Nasal Cannula 2.0 28 74 16 96 08/20/19 00:00 57 08/20/19 00:00 98.1 84 18 138/81 (100) 95 08/19/19 21:09 135/83 08/19/19 21:00 64 08/19/19 21:00 Nasal Cannula 2.0 08/19/19 20:51 67 18 96 Nasal Cannula 2.0 28 08/19/19 20:51 96 Nasal Cannula 2.0 28 08/19/19 20:00 97.1 67 18 133/83 (100) 99 08/19/19 17:48 Nasal Cannula 2.0 08/19/19 16:00 71 08/19/19 16:00 97.8 72 20 109/72 (84) 97 08/19/19 12:00 97.9 77 20 112/63 (79) 96 08/19/19 12:00 77 Intake and Output 08/19/19 08/20/19 19:00 07:00 Intake Total 800 ml Balance 800 ml Intake Oral 800 ml # Voids 8 # Bowel Movements 1 Laboratory Tests Test 08/19/19 19:00 Stool Occult Blood Pending Microbiology Date/Time Source Procedure Growth Status 08/19/19 19:00 Stool Stool Culture Pending Resulted 08/19/19 19:00 Stool Clostridium difficile Toxin Assay - Final Resulted Objective HEAD AND NECK: Showed no JVD. LUNGS: Decreased breath sounds with rhonchi. CARDIOVASCULAR: Regular S1 and S2 with no gallop. ABDOMEN: Soft. EXTREMITIES: Bilateral 2+ pitting edema Robbin Sinha MD Aug 20, 2019 10:08
--- NOTE | 2019-08-20 10:09 | NUR ---
COREMAKER NOTE SW met w/ pt to assess his mood and for any needs. Pt continues to be presented as guarded and irritable. SW offered a placement assistance but pt refused. Pt plans to return his car upon DC. PT currently denies having any concern/issue/needs at this time. SW encouraged pt to verbalize his needs/concern. Pt verbalized understanding. Signed: 08/20/19 at 1012 by MIKE NAM <Co-Signature Required>
--- NOTE | 2019-08-20 10:13 | General Progress Note ---
Assessment/Plan Problem List: (1) Emphysema ICD Codes: J43.9 - Emphysema SNOMED: 40612135 (2) History of CVA (cerebrovascular accident) ICD Codes: Z86.73 - History of stroke SNOMED: 940796027 Status: stable, progressing Assessment/Plan: pt sdiwt o2 pulm tx psyc cardio eval cbc bmp am dc plan snf Subjective Constitutional: Reports: weakness Allergies: Coded Allergies: No Known Allergies (Unverified , 08/14/19) All Systems: reviewed and negative except above Subjective o2nc sl anxious Objective Last 24 Hour Vital Signs Date Time Temp Pulse Resp B/P (MAP) Pulse Ox O2 Delivery O2 Flow Rate FiO2 08/20/19 09:26 112/51 08/20/19 04:00 97.8 65 18 144/65 (91) 95 08/20/19 04:00 61 08/20/19 00:51 74 18 99 Nasal Cannula 2.0 28 74 16 96 08/20/19 00:00 57 08/20/19 00:00 98.1 84 18 138/81 (100) 95 08/19/19 21:09 135/83 08/19/19 21:00 64 08/19/19 21:00 Nasal Cannula 2.0 08/19/19 20:51 67 18 96 Nasal Cannula 2.0 28 08/19/19 20:51 96 Nasal Cannula 2.0 28 08/19/19 20:00 97.1 67 18 133/83 (100) 99 08/19/19 17:48 Nasal Cannula 2.0 08/19/19 16:00 71 08/19/19 16:00 97.8 72 20 109/72 (84) 97 08/19/19 12:00 97.9 77 20 112/63 (79) 96 08/19/19 12:00 77 Intake and Output 08/19/19 08/20/19 19:00 07:00 Intake Total 800 ml Balance 800 ml Intake Oral 800 ml # Voids 8 # Bowel Movements 1 Laboratory Tests 08/19/19 19:00: Stool Occult Blood [Pending] Height (Feet): 6 Height (Inches): 1.00 Weight (Pounds): 179 General Appearance: lethargic EENT: normal ENT inspection Neck: normal alignment Cardiovascular: normal peripheral pulses, normal rate, regular rhythm Respiratory/Chest: chest wall non-tender, lungs clear, normal breath sounds Abdomen: normal bowel sounds, non tender, soft Extremities: normal inspection Edema: no edema noted Arm (L), no edema noted Arm (R), no edema noted Leg (L), no edema noted Leg (R), no edema noted Pedal (L), no edema noted Pedal (R), no edema noted Generalized Neurologic: motor weakness Skin: normal pigmentation, warm/dry Fred Kay DO Aug 20, 2019 10:13
[2019-08-20 10:24] LABS: BASOPHILS % (AUTO) 1.1 % (0.0-2.0); EOSINOPHILS % (AUTO) 0.4 % (0.0-3.0); HEMATOCRIT 37.6 % (42.0-52.0); HEMOGLOBIN 13.5 G/DL (14.2-18.0); LYMPHOCYTES % (AUTO) 24.3 % (20.0-45.0); MEAN CORPUSCULAR VOLUME 95 FL (80-99); MONOCYTES % (AUTO) 13.3 % (1.0-10.0); NEUTROPHILS % (AUTO) 60.9 % (45.0-75.0); PLATELET COUNT 146 K/UL (150-450); RED BLOOD COUNT 3.95 M/UL (4.70-6.10); RED CELL DISTRIBUTION WIDTH 13.3 % (11.6-14.8); WHITE BLOOD COUNT 8.6 K/UL (4.8-10.8)
--- NOTE | 2019-08-20 10:26 | General Progress Note ---
Assessment/Plan Problem List: (1) Fatty liver ICD Codes: K76.0 - Fatty (change of) liver, not elsewhere classified SNOMED: 281655256 (2) CHF (congestive heart failure) ICD Codes: I50.9 - Heart failure, unspecified SNOMED: 56509110 (3) Emphysema ICD Codes: J43.9 - Emphysema SNOMED: 45936842 (4) Tobacco dependence ICD Codes: F17.200 - Nicotine dependence, unspecified, uncomplicated SNOMED: 96324006 (5) DJD (degenerative joint disease) ICD Codes: M19.90 - Unspecified osteoarthritis, unspecified site SNOMED: 262384751 (6) Elevated LFTs ICD Codes: R94.5 - Abnormal results of liver function studies SNOMED: 757106660, 417959516 (7) Diverticulosis ICD Codes: K57.90 - Diverticulosis of intestine, part unspecified, without perforation or abscess without bleeding SNOMED: 215631850 (8) Constipation ICD Codes: K59.00 - Constipation, unspecified SNOMED: 58668562 Status: stable, progressing Assessment/Plan: on bowel regimen with one BM today abd CT : IMPRESSION: Fatty liver. Suggestion of mild fibrosis at the right lung base. Other interstitial opacities nonspecific. Calcified granulomata within the spleen Moderate atherosclerotic vascular disease. Tiny left inguinal hernia containing fat Mild diverticulosis of the colon. Sclerotic appearing femoral heads. Query AVN. Moderate degenerative changes of the spine with severe disease in the lower lumbar spine. repeat labs fu cardiology GI procedures on hold Subjective ROS Limited/Unobtainable: Yes Allergies: Coded Allergies: No Known Allergies (Unverified , 08/14/19) Subjective c/o abd pain had BM no bleeding Objective Last 24 Hour Vital Signs Date Time Temp Pulse Resp B/P (MAP) Pulse Ox O2 Delivery O2 Flow Rate FiO2 08/20/19 09:26 112/51 08/20/19 04:00 97.8 65 18 144/65 (91) 95 08/20/19 04:00 61 08/20/19 00:51 74 18 99 Nasal Cannula 2.0 28 74 16 96 08/20/19 00:00 57 08/20/19 00:00 98.1 84 18 138/81 (100) 95 08/19/19 21:09 135/83 08/19/19 21:00 64 08/19/19 21:00 Nasal Cannula 2.0 08/19/19 20:51 67 18 96 Nasal Cannula 2.0 28 08/19/19 20:51 96 Nasal Cannula 2.0 28 08/19/19 20:00 97.1 67 18 133/83 (100) 99 08/19/19 17:48 Nasal Cannula 2.0 08/19/19 16:00 71 08/19/19 16:00 97.8 72 20 109/72 (84) 97 08/19/19 12:00 97.9 77 20 112/63 (79) 96 08/19/19 12:00 77 Intake and Output 08/19/19 08/20/19 18:59 06:59 Intake Total 800 ml Balance 800 ml Intake Oral 800 ml # Voids 8 # Bowel Movements 1 Laboratory Tests 08/19/19 19:00: Stool Occult Blood [Pending] 08/20/19 09:50: White Blood Count [Pending], Red Blood Count [Pending], Hemoglobin [Pending], Hematocrit [Pending], Mean Corpuscular Volume [Pending], Mean Corpuscular Hemoglobin [Pending], Mean Corpuscular Hemoglobin Concent [Pending], Red Cell Distribution Width [Pending], Platelet Count [Pending], Mean Platelet Volume [ Pending], Neutrophils (%) (Auto) [Pending], Lymphocytes (%) (Auto) [Pending], Monocytes (%) (Auto) [Pending], Eosinophils (%) (Auto) [Pending], Basophils (%) (Auto) [Pending], Sodium Level [Pending], Potassium Level [Pending], Chloride Level [Pending], Carbon Dioxide Level [Pending], Blood Urea Nitrogen [Pending], Creatinine [Pending], Estimat Glomerular Filtration Rate [Pending], Glucose Level [Pending], Calcium Level [Pending] Height (Feet): 6 Height (Inches): 1.00 Weight (Pounds): 179 General Appearance: alert EENT: normal ENT inspection Neck: supple Cardiovascular: normal rate Respiratory/Chest: lungs clear Abdomen: normal bowel sounds, non tender, soft Extremities: swelling Won Bright MD Aug 20, 2019 10:26
[2019-08-20 10:31] LABS: ANION GAP 7 mmol/L (5-15); BLOOD UREA NITROGEN 17 mg/dL (7-18); CALCIUM 8.8 MG/DL (8.5-10.1); CARBON DIOXIDE 32 MMOL/L (21-32); CHLORIDE 93 MMOL/L (98-107); CREATININE 1.1 MG/DL (0.55-1.30); POTASSIUM 3.8 MMOL/L (3.5-5.1); SODIUM 132 MMOL/L (136-145)
--- NOTE | 2019-08-20 11:47 | Pulmonology Progress Note ---
Assessment/Plan Problems: (1) Acute exacerbation of chronic obstructive airways disease (2) Acute bronchitis (3) Pulmonary nodule (4) Emphysema (5) Peripheral neuropathy (6) History of cocaine abuse (7) Chronic back pain (8) DJD (degenerative joint disease) Assessment/Plan unknown etiology of abdominal pain. symptomatic treatment med/surg slightly better dc steroids,f/u steroids respiratory treatment check sputum iv abx stool for OB Subjective ROS Limited/Unobtainable: No Interval Events: still c./o abdominal pain Constitutional: Reports: no symptoms HEENT: Repors: no symptoms Allergies: Coded Allergies: No Known Allergies (Unverified , 08/14/19) Objective Last 24 Hour Vital Signs Date Time Temp Pulse Resp B/P (MAP) Pulse Ox O2 Delivery O2 Flow Rate FiO2 08/20/19 09:26 112/51 08/20/19 04:00 97.8 65 18 144/65 (91) 95 08/20/19 04:00 61 08/20/19 00:51 74 18 99 Nasal Cannula 2.0 28 74 16 96 08/20/19 00:00 57 08/20/19 00:00 98.1 84 18 138/81 (100) 95 08/19/19 21:09 135/83 08/19/19 21:00 64 08/19/19 21:00 Nasal Cannula 2.0 08/19/19 20:51 67 18 96 Nasal Cannula 2.0 28 08/19/19 20:51 96 Nasal Cannula 2.0 28 08/19/19 20:00 97.1 67 18 133/83 (100) 99 08/19/19 17:48 Nasal Cannula 2.0 08/19/19 16:00 71 08/19/19 16:00 97.8 72 20 109/72 (84) 97 08/19/19 12:00 97.9 77 20 112/63 (79) 96 08/19/19 12:00 77 Intake and Output 08/19/19 08/20/19 18:59 06:59 Intake Total 800 ml Balance 800 ml Intake Oral 800 ml # Voids 8 # Bowel Movements 1 General Appearance: WD/WN HEENT: normocephalic Respiratory/Chest: chest wall non-tender, decreased breath sounds Cardiovascular: normal peripheral pulses, normal rate Abdomen: normal bowel sounds, soft, non tender Extremities: no cyanosis Neurologic/Psychiatric: watch repairer II-XII grossly normal Microbiology Date/Time Source Procedure Growth Status 08/19/19 19:00 Stool Stool Culture Pending Resulted 08/19/19 19:00 Stool Clostridium difficile Toxin Assay - Final Resulted Laboratory Tests 08/19/19 19:00: Stool Occult Blood [Pending] 08/20/19 09:50: White Blood Count 8.6, Red Blood Count 3.95L, Hemoglobin 13.5L, Hematocrit 37.6L , Mean Corpuscular Volume 95, Mean Corpuscular Hemoglobin 34.2H, Mean Corpuscular Hemoglobin Concent 35.9, Red Cell Distribution Width 13.3, Platelet Count 146L, Mean Platelet Volume 6.4L, Neutrophils (%) (Auto) 60.9, Lymphocytes (%) (Auto) 24.3, Monocytes (%) (Auto) 13.3H, Eosinophils (%) (Auto) 0.4, Basophils (%) (Auto) 1.1, Sodium Level 132L, Potassium Level 3.8, Chloride Level 93L, Carbon Dioxide Level 32, Anion Gap 7, Blood Urea Nitrogen 17, Creatinine 1.1, Estimat Glomerular Filtration Rate , Glucose Level 92, Calcium Level 8.8 Current Medications Medications (Trade) Dose Ordered Sig/[place] Route PRN Reason Start Time Stop Time Status Last Admin Dose Admin Acetaminophen (Tylenol) 650 mg Q4H PRN ORAL Mild Pain/Temp > 100.5 08/14/19 11:15 09/13/19 11:14 08/16/19 13:33 Acetaminophen/ Hydrocodone Bitart ([place] 5/325) 1 tab TID PRN ORAL Moderate Pain (Pain Scale 4-6) 08/15/19 10:45 08/22/19 10:44 08/17/19 09:18 Albuterol/ Ipratropium (Albuterol/ Ipratropium) 3 ml Q4H PRN HHN dyspnea 08/18/19 12:45 08/23/19 12:44 08/20/19 00:51 Aspirin (ASA) 81 mg DAILY ORAL 08/14/19 11:15 09/13/19 11:14 08/20/19 09:22 Clonidine HCl (Catapres tab) 0.2 mg Q12HR ORAL 08/17/19 21:00 09/16/19 20:59 08/20/19 09:26 Dextrose (Dextrose 50%) 25 ml Q30M PRN IV Hypoglycemia 08/14/19 06:45 09/13/19 06:44 Dextrose (Dextrose 50%) 50 ml Q30M PRN IV Hypoglycemia 08/14/19 06:45 09/13/19 06:44 Docusate Sodium (Colace) 100 mg TWICE A DAY ORAL 08/17/19 09:00 09/16/19 08:59 08/20/19 09:22 Dronabinol (Marinol) 2.5 mg TID ORAL 08/16/19 13:00 09/15/19 12:59 08/20/19 09:21 Furosemide (Lasix) 40 mg DAILY IV 08/17/19 09:00 09/15/19 20:59 08/20/19 09:21 Heparin Sodium (Porcine) (Heparin 5000 units/ml) 5,000 units EVERY 12 HOURS SUBQ 08/14/19 09:00 09/13/19 08:59 08/19/19 21:14 Lactulose (Cephulac) 10 gm THREE TIMES A DAY ORAL 08/18/19 09:00 09/17/19 08:59 08/20/19 09:21 Lorazepam (Ativan 2mg/ml 1ml) 0.5 mg Q4H PRN IV For Anxiety 08/14/19 06:45 08/21/19 06:44 08/16/19 03:51 Methylprednisolone Sodium Succinate (Solu-MEDROL) 60 mg DAILY IV 08/17/19 09:00 09/13/19 07:59 08/20/19 09:22 Nitroglycerin (Ntg) 0.4 mg Q5M X 3 DOSES PRN SL Prn Chest Pain 08/14/19 06:45 09/13/19 06:44 Ondansetron HCl (Zofran) 4 mg Q6H PRN IVP Nausea & Vomiting 08/14/19 06:45 09/13/19 06:44 Pantoprazole (Protonix) 40 mg DAILY IVP 08/20/19 09:00 09/19/19 08:59 08/20/19 09:22 Polyethylene Glycol (Miralax) 17 gm BEDTIME ORAL 08/18/19 21:00 09/17/19 20:59 08/18/19 20:50 Promethazine HCl/ Codeine (Phenergan with Codeine) 5 ml Q6H PRN ORAL cough 08/14/19 06:45 09/13/19 06:44 Sertraline HCl (Zoloft) 25 mg DAILY ORAL 08/16/19 09:00 09/15/19 08:59 08/20/19 09:21 Simethicone (Mylicon) 80 mg Q6H PRN ORAL Abdominal cramps 08/20/19 08:00 09/19/19 07:59 08/20/19 07:55 Sucralfate (Carafate) 1 gm TID ORAL 08/20/19 09:00 09/19/19 08:59 08/20/19 09:22 Temazepam (Restoril) 15 mg HSPRN PRN ORAL Insomnia 08/14/19 06:45 08/21/19 06:44 Theophylline (Rigoberto-Dur) 100 mg EVERY 12 HOURS ORAL 08/14/19 09:00 09/13/19 08:59 08/20/19 09:23 Trimethoprim/ Sulfamethoxazole (Bactrim-DS) 1 tab Q12HR ORAL 08/16/19 21:00 08/23/19 20:59 08/20/19 09:21 Farhan Ortega MD Aug 20, 2019 11:47
[2019-08-20 12:00] VITALS: BP 106/66
--- NOTE | 2019-08-20 13:20 | NUR ---
NURSE NOTES: Made Dr. Ortega aware of sodium 132 today. No new orders noted.
--- NOTE | 2019-08-20 14:26 | NUR ---
DISCHARGE PLANNING VIEW [facility] IS INTERESTED IN ACCEPTING PATIENT HISTOTECHNOLOGIST DISCUSSED SNF PLACEMENT WITH PATIENT AT BEDSIDE ~ HE ADAMANTLY REFUSED PATIENT WAS REFERRED TO [facility] THIS WEEK. SINCE HE WAS WALKING INDEPENDENTLY WITHOUT ANY ASSISTANCE OR ASSISTIVE DEVICES WE COULD NOT PROVIDE PHYSICAL THERAPY NOTES TO [facility]
--- NOTE | 2019-08-20 14:50 | NUR ---
NURSE NOTES: Noted O2 sat with 94% on room air
[2019-08-20 16:00] VITALS: BP 137/78
--- NOTE | 2019-08-20 19:15 | NUR ---
PT RESTING IN BED, NO SIGNS OF APPARENT DISTRESS. OBTAINED REPORT FROM Delfin LUU.
--- NOTE | 2019-08-20 19:15 | Progress Note ---
DATE: 08/20/2019 SUBJECTIVE: This is a 79-year-old male patient with COPD. This patient continued to have some confusion. He is endorsing anxiety, depression worsened by stress of his medical illness. That is why his attending physician has requested daily psychiatric consultation for this patient. He has COPD, altered mental status, increased anxiety worsened by stress of his medical illness. That is why his attending has requested daily psychiatric consultation. MENTAL STATUS EXAMINATION: This is a 79-year-old male. Appearance is disheveled. Attitude, irritable and agitated. Affect, guarded and restricted. Intellect poor. Mood, depressed and anxious. Motor activity, psychomotor agitation. Attention span is poor. Orientation x2. Speech is normal volume, fluent. Thought process, disorganized and illogical. Insight and judgment are poor. DIAGNOSES: 1. Major depressive disorder, severe, recurrent. 2. Rule out dementia with psychosis. PLAN: Treat him with a medication regimen consisting of Zoloft 25 mg a day and Ativan 0.5 mg IV q.4 h. p.r.n. anxiety and agitation. Twenty minutes of cognitive behavioral therapy to help him identify his automatic negative thoughts and help him convert negative thoughts to more positive thoughts to reduce depression, anxiety, mood lability. Chart was reviewed. Discussed with the staff. Seen and assessed in his room. . Twenty minutes of cognitive behavioral therapy to help him identify his automatic negative thoughts and help him convert negative thoughts to more positive thoughts to reduce depression, anxiety, suicidality. Chart was reviewed. Discussed with the staff. Seen and assessed in his room. Misha Bird M.D. DR: CORINE JOB#: [id number] CC:
--- NOTE | 2019-08-20 19:41 | NUR ---
HAND-OFF: Report given to Brittany OLMOS. Pt remians stable.
[2019-08-20 20:00] VITALS: BP 140/90
[2019-08-20] MEDS: Miralax 17gm pkt ORAL SCH (20:14)
[2019-08-21] VITALS (7 sets, daily range): BP systolic 108–138; BP diastolic 60–79
--- NOTE | 2019-08-21 06:00 | NUR ---
REFUSED TODAY'S LAB DRAW.
--- NOTE | 2019-08-21 06:53 | General Progress Note ---
Assessment/Plan Problem List: (1) Fatty liver ICD Codes: K76.0 - Fatty (change of) liver, not elsewhere classified SNOMED: 188351429 (2) CHF (congestive heart failure) ICD Codes: I50.9 - Heart failure, unspecified SNOMED: 09363422 (3) Emphysema ICD Codes: J43.9 - Emphysema SNOMED: 95979959 (4) Tobacco dependence ICD Codes: F17.200 - Nicotine dependence, unspecified, uncomplicated SNOMED: 80888926 (5) DJD (degenerative joint disease) ICD Codes: M19.90 - Unspecified osteoarthritis, unspecified site SNOMED: 657827942 (6) Elevated LFTs ICD Codes: R94.5 - Abnormal results of liver function studies SNOMED: 108831315, 799236777 (7) Diverticulosis ICD Codes: K57.90 - Diverticulosis of intestine, part unspecified, without perforation or abscess without bleeding SNOMED: 526214917 (8) Constipation ICD Codes: K59.00 - Constipation, unspecified SNOMED: 56969367 Status: stable, progressing Assessment/Plan: on bowel regimen with one BM today abd CT : IMPRESSION: Fatty liver. Suggestion of mild fibrosis at the right lung base. Other interstitial opacities nonspecific. Calcified granulomata within the spleen Moderate atherosclerotic vascular disease. Tiny left inguinal hernia containing fat Mild diverticulosis of the colon. Sclerotic appearing femoral heads. Query AVN. Moderate degenerative changes of the spine with severe disease in the lower lumbar spine. repeat labs neg stool ob abd us consider GI procedure on Friday id still has pain fu cardiology Subjective ROS Limited/Unobtainable: Yes Allergies: Coded Allergies: No Known Allergies (Unverified , 08/14/19) Subjective c/o abd pain had BM no bleeding Objective Last 24 Hour Vital Signs Date Time Temp Pulse Resp B/P (MAP) Pulse Ox O2 Delivery O2 Flow Rate FiO2 08/21/19 04:00 98.4 65 20 108/74 (85) 98 08/21/19 00:00 98.0 62 18 121/60 (80) 98 08/20/19 21:08 64 18 97 Nasal Cannula 2.0 28 08/20/19 21:08 97 Nasal Cannula 2.0 28 08/20/19 20:14 140/90 08/20/19 20:00 Nasal Cannula 2.0 08/20/19 20:00 98.0 79 20 140/90 (107) 100 08/20/19 17:49 75 17 100 Nasal Cannula 2.0 28 71 17 97 08/20/19 16:00 97.0 64 20 137/78 (97) 94 08/20/19 12:00 97.5 65 20 106/66 (79) 94 08/20/19 12:00 65 08/20/19 09:26 112/51 08/20/19 09:00 Room Air 08/20/19 08:00 111 08/20/19 08:00 97.0 68 20 112/51 (71) 95 Intake and Output 08/20/19 08/21/19 19:00 07:00 Intake Total 480 ml Output Total 1000 ml Balance 480 ml -1000 ml Intake Oral 480 ml Output Urine Total 1000 ml # Voids 4 Laboratory Tests 08/20/19 09:50: White Blood Count 8.6, Red Blood Count 3.95L, Hemoglobin 13.5L, Hematocrit 37.6L , Mean Corpuscular Volume 95, Mean Corpuscular Hemoglobin 34.2H, Mean Corpuscular Hemoglobin Concent 35.9, Red Cell Distribution Width 13.3, Platelet Count 146L, Mean Platelet Volume 6.4L, Neutrophils (%) (Auto) 60.9, Lymphocytes (%) (Auto) 24.3, Monocytes (%) (Auto) 13.3H, Eosinophils (%) (Auto) 0.4, Basophils (%) (Auto) 1.1, Sodium Level 132L, Potassium Level 3.8, Chloride Level 93L, Carbon Dioxide Level 32, Anion Gap 7, Blood Urea Nitrogen 17, Creatinine 1.1, Estimat Glomerular Filtration Rate , Glucose Level 92, Calcium Level 8.8 Height (Feet): 6 Height (Inches): 1.00 Weight (Pounds): 179 General Appearance: alert EENT: normal ENT inspection Neck: supple Cardiovascular: normal rate Respiratory/Chest: decreased breath sounds Abdomen: normal bowel sounds, soft, tender Extremities: non-tender Won Bright MD Aug 21, 2019 06:53
--- NOTE | 2019-08-21 07:20 | NUR ---
NURSE NOTES: Report received from NICKOLAS Monroy. Pt. refused assessment at this time. Per Night nurse, AOx4, Pt. claims his skin is intact. In RA. Having breakfast. Denies pain. Bed on lowest position, side rails upx2, brakes engaged. Call light within easy reach. Fall teaching done. Pt. refused to sign Fall agreement paper.
--- NOTE | 2019-08-21 07:20 | NUR ---
NURSE NOTES: Report received from NICKOLAS Monroy. Pt. refused for
--- NOTE | 2019-08-21 07:20 | NUR ---
GAVE FULL REPORT TO DANIELLE OLMOS. PT RESTING COMFORTABLY IN BED. NO APPARENT DISTRESS.
[2019-08-21] MEDS: Albuterol/Ipratropium 3ml neb HHN PRN ×2 (07:24→20:27)
--- NOTE | 2019-08-21 08:36 | General Progress Note ---
Assessment/Plan Problem List: (1) Emphysema ICD Codes: J43.9 - Emphysema SNOMED: 85326228 (2) History of CVA (cerebrovascular accident) ICD Codes: Z86.73 - History of stroke SNOMED: 331018923 Status: stable, progressing Assessment/Plan: pt sdiwt o2 pulm tx psyc cardio eval dc to snf Subjective Constitutional: Reports: weakness Allergies: Coded Allergies: No Known Allergies (Unverified , 08/14/19) All Systems: reviewed and negative except above Subjective o2nc sl anxious Objective Last 24 Hour Vital Signs Date Time Temp Pulse Resp B/P (MAP) Pulse Ox O2 Delivery O2 Flow Rate FiO2 08/21/19 08:12 98.1 64 19 124/76 (92) 100 08/21/19 07:34 65 21 99 Nasal Cannula 2.0 28 63 22 96 08/21/19 07:24 63 22 96 Nasal Cannula 2.0 28 08/21/19 06:24 96 Nasal Cannula 2.0 28 08/21/19 04:00 98.4 65 20 108/74 (85) 98 08/21/19 00:00 98.0 62 18 121/60 (80) 98 08/20/19 21:08 64 18 97 Nasal Cannula 2.0 28 08/20/19 21:08 97 Nasal Cannula 2.0 28 08/20/19 20:14 140/90 08/20/19 20:00 Nasal Cannula 2.0 08/20/19 20:00 98.0 79 20 140/90 (107) 100 08/20/19 17:49 75 17 100 Nasal Cannula 2.0 28 71 17 97 08/20/19 16:00 97.0 64 20 137/78 (97) 94 08/20/19 12:00 97.5 65 20 106/66 (79) 94 08/20/19 12:00 65 08/20/19 09:26 112/51 08/20/19 09:00 Room Air Intake and Output 08/20/19 08/21/19 19:00 07:00 Intake Total 480 ml Output Total 1000 ml Balance 480 ml -1000 ml Intake Oral 480 ml Output Urine Total 1000 ml # Voids 4 Laboratory Tests 08/20/19 09:50: White Blood Count 8.6, Red Blood Count 3.95L, Hemoglobin 13.5L, Hematocrit 37.6L , Mean Corpuscular Volume 95, Mean Corpuscular Hemoglobin 34.2H, Mean Corpuscular Hemoglobin Concent 35.9, Red Cell Distribution Width 13.3, Platelet Count 146L, Mean Platelet Volume 6.4L, Neutrophils (%) (Auto) 60.9, Lymphocytes (%) (Auto) 24.3, Monocytes (%) (Auto) 13.3H, Eosinophils (%) (Auto) 0.4, Basophils (%) (Auto) 1.1, Sodium Level 132L, Potassium Level 3.8, Chloride Level 93L, Carbon Dioxide Level 32, Anion Gap 7, Blood Urea Nitrogen 17, Creatinine 1.1, Estimat Glomerular Filtration Rate , Glucose Level 92, Calcium Level 8.8 Height (Feet): 6 Height (Inches): 1.00 Weight (Pounds): 179 General Appearance: lethargic EENT: normal ENT inspection Neck: normal alignment Cardiovascular: normal peripheral pulses, normal rate, regular rhythm Respiratory/Chest: chest wall non-tender, lungs clear, normal breath sounds Abdomen: normal bowel sounds, non tender, soft Extremities: normal inspection Edema: no edema noted Arm (L), no edema noted Arm (R), no edema noted Leg (L), no edema noted Leg (R), no edema noted Pedal (L), no edema noted Pedal (R), no edema noted Generalized Neurologic: responsive, motor weakness Skin: normal pigmentation, warm/dry Fred Kay DO Aug 21, 2019 08:36
[2019-08-21] MEDS: Sertraline 50mg tab ORAL SCH (08:46)
[2019-08-21] MEDS: Sucralfate 1gm tab ORAL SCH ×3 (08:46→18:25)
[2019-08-21] MEDS: Theophylline ER 100mg ORAL SCH ×2 (08:46→20:24)
[2019-08-21] MEDS: Bactrim-DS 1 tab ORAL SCH ×2 (08:47→20:24)
[2019-08-21] MEDS: cloNIDine 0.2mg Tab ORAL SCH ×2 (08:48→20:24)
[2019-08-21] MEDS: Aspirin Baby 81mg ORAL SCH (08:48)
[2019-08-21] MEDS: Lactulose 10gm/15ml UDC ORAL SCH ×3 (08:48→18:25)
[2019-08-21] MEDS: Pantoprazole Inj IVP SCH (08:48)
[2019-08-21] MEDS: Dronabinol 2.5mg Cap ORAL SCH ×3 (08:49→19:41)
[2019-08-21] MEDS: Docusate 100mg cap ORAL SCH ×2 (09:00→18:00)
[2019-08-21] MEDS: Heparin 5000 units/ml inj SUBQ SCH ×2 (09:02→20:27)
--- NOTE | 2019-08-21 12:25 | Pulmonology Progress Note ---
Assessment/Plan Assessment/Plan ASSESSMENT COPD exacerbation CHF with diastolic dysfunction HTN Emphysema acute bronchitis pulm nodule tobacco abuse hx of cocaine abuse DJD with chronic back pain Hx of CVA abdominal pain fatty liver diverticulosis constipation PLAN OF CARE tele O2 HHN steroids, and taper, empiric abx, SCX if able trial of theophylline a/tussive prn DVT prophylaxis, service counselor on smoking cessation Nicotine patch - declined CT chest with tiny pulm nodules, some disappeared from previous exam diuresis with Lasix, monitor volumes, cardiorenal parameters, BNP trending down ECHO with pEF 60% and RVSP of 34 BP management with Clonidine, dose increased by cardio a/plt therapy with ASA, check lipid panel bowel regimen pain management urine tox negative GI follows CT of the abdomen and pelvis revealed fatty liver mild diverticulosis of the colon abd US P LFT trending up, follow-up with LFT hepatitis panel negative steroid tapered GI procedure on hold GI prophylaxis Carafate added bowel regimen transferred to [place] case discussed and evaluated by supervising physician Subjective Allergies: Coded Allergies: No Known Allergies (Unverified , 08/14/19) Subjective afebrile, no leukocytosis, no wheezing still with abd pain Objective Last 24 Hour Vital Signs Date Time Temp Pulse Resp B/P (MAP) Pulse Ox O2 Delivery O2 Flow Rate FiO2 08/21/19 10:07 98.1 08/21/19 09:00 Nasal Cannula 2.0 08/21/19 08:48 124/76 08/21/19 08:12 98.1 64 19 124/76 (92) 100 08/21/19 07:34 65 21 99 Nasal Cannula 2.0 28 63 22 96 08/21/19 07:24 63 22 96 Nasal Cannula 2.0 28 08/21/19 06:24 96 Nasal Cannula 2.0 28 08/21/19 04:00 98.4 65 20 108/74 (85) 98 08/21/19 00:00 98.0 62 18 121/60 (80) 98 08/20/19 21:08 64 18 97 Nasal Cannula 2.0 28 08/20/19 21:08 97 Nasal Cannula 2.0 28 08/20/19 20:14 140/90 08/20/19 20:00 Nasal Cannula 2.0 08/20/19 20:00 98.0 79 20 140/90 (107) 100 2/7/20 17:49 75 17 100 Nasal Cannula 2.0 28 71 17 97 08/20/19 16:00 97.0 64 20 137/78 (97) 94 Intake and Output 08/20/19 08/21/19 19:00 07:00 Intake Total 480 ml Output Total 1000 ml Balance 480 ml -1000 ml Intake Oral 480 ml Output Urine Total 1000 ml # Voids 4 Objective General Appearance: no acute distress HEENT: normocephalic, atraumatic, anicteric, mucous membranes moist Respiratory/Chest: no respiratory distress, no accessory muscle use, few isolated expiratory wheezes Cardiovascular: normal rate, regular rhythm Abdomen: soft, mild diffused tender with mild distention Extremities: pedal pulses normal Neurologic/Psychiatric: no motor/sensory deficits, alert, responsive Musculoskeletal: normal muscle bulk Microbiology Date/Time Source Procedure Growth Status 08/19/19 19:00 Stool Stool Culture - Preliminary NORMAL FECAL JS. Resulted 08/19/19 19:00 Stool Clostridium difficile Toxin Assay - Final Resulted Current Medications Medications (Trade) Dose Ordered Sig/[place] Route PRN Reason Start Time Stop Time Status Last Admin Dose Admin Acetaminophen (Tylenol) 650 mg Q4H PRN ORAL Mild Pain/Temp > 100.5 08/14/19 11:15 09/13/19 11:14 08/21/19 09:37 Acetaminophen/ Hydrocodone Bitart ([place] 5/325) 1 tab TID PRN ORAL Moderate Pain (Pain Scale 4-6) 08/15/19 10:45 08/22/19 10:44 08/17/19 09:18 Albuterol/ Ipratropium (Albuterol/ Ipratropium) 3 ml Q4H PRN HHN dyspnea 08/18/19 12:45 08/23/19 12:44 08/21/19 07:24 Aspirin (ASA) 81 mg DAILY ORAL 08/14/19 11:15 09/13/19 11:14 08/21/19 08:48 Clonidine HCl (Catapres tab) 0.2 mg Q12HR ORAL 08/17/19 21:00 09/16/19 20:59 08/21/19 08:48 Dextrose (Dextrose 50%) 25 ml Q30M PRN IV Hypoglycemia 08/14/19 06:45 09/13/19 06:44 Dextrose (Dextrose 50%) 50 ml Q30M PRN IV Hypoglycemia 08/14/19 06:45 09/13/19 06:44 Docusate Sodium (Colace) 100 mg TWICE A DAY ORAL 08/17/19 09:00 09/16/19 08:59 08/20/19 09:22 Dronabinol (Marinol) 2.5 mg TID ORAL 08/16/19 13:00 09/15/19 12:59 08/21/19 08:49 Furosemide (Lasix) 40 mg DAILY IV 08/17/19 09:00 09/15/19 20:59 08/21/19 08:46 Heparin Sodium (Porcine) (Heparin 5000 units/ml) 5,000 units EVERY 12 HOURS SUBQ 08/14/19 09:00 09/13/19 08:59 08/21/19 09:02 Lactulose (Cephulac) 10 gm THREE TIMES A DAY ORAL 08/18/19 09:00 09/17/19 08:59 08/21/19 08:48 Nitroglycerin (Ntg) 0.4 mg Q5M X 3 DOSES PRN SL Prn Chest Pain 08/14/19 06:45 09/13/19 06:44 Ondansetron HCl (Zofran) 4 mg Q6H PRN IVP Nausea & Vomiting 08/14/19 06:45 09/13/19 06:44 Pantoprazole (Protonix) 40 mg DAILY IVP 08/20/19 09:00 09/19/19 08:59 08/21/19 08:48 Polyethylene Glycol (Miralax) 17 gm BEDTIME ORAL 08/18/19 21:00 09/17/19 20:59 08/20/19 20:14 Promethazine HCl/ Codeine (Phenergan with Codeine) 5 ml Q6H PRN ORAL cough 08/14/19 06:45 09/13/19 06:44 Sertraline HCl (Zoloft) 25 mg DAILY ORAL 08/16/19 09:00 09/15/19 08:59 08/21/19 08:46 Simethicone (Mylicon) 80 mg Q6H PRN ORAL Abdominal cramps 08/20/19 08:00 09/19/19 07:59 08/20/19 20:22 Sucralfate (Carafate) 1 gm TID ORAL 08/20/19 09:00 3/8/20 08:59 08/21/19 08:46 Theophylline (Rigoberto-Dur) 100 mg EVERY 12 HOURS ORAL 08/14/19 09:00 09/13/19 08:59 08/21/19 08:46 Trimethoprim/ Sulfamethoxazole (Bactrim-DS) 1 tab Q12HR ORAL 08/16/19 21:00 08/23/19 20:59 08/21/19 08:47 Mariana [place] [employer]AD[employer]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
--- NOTE | 2019-08-21 13:32 | Cardiac Electrophysiology PN ---
Assessment/Plan Assessment/Plan 1. Severe bilateral lower extremity edema and shortness of breath. Likely due to CHF due to diastolic dysfunction, EF 60% BNP decreased from 2500 to 1700 . Change Lasix to 40 po daily 2. Accelerated HTN. On Lasix 40 daily and clonidine 0.2 mg bid 3. COPD on Rigoberto-Dur, Solu-Medrol and antibiotic. 4. Abdominal pain. Abd US was negative, FU GI DW RN Subjective Subjective Alert with no CP and SOB is better. RN at bedside. In SR Objective Last 24 Hour Vital Signs Date Time Temp Pulse Resp B/P (MAP) Pulse Ox O2 Delivery O2 Flow Rate FiO2 08/21/19 12:00 98.7 67 17 128/79 (95) 100 08/21/19 10:07 98.1 08/21/19 09:00 Nasal Cannula 2.0 08/21/19 08:48 124/76 08/21/19 08:12 98.1 64 19 124/76 (92) 100 08/21/19 07:34 65 21 99 Nasal Cannula 2.0 28 63 22 96 08/21/19 07:24 63 22 96 Nasal Cannula 2.0 28 08/21/19 06:24 96 Nasal Cannula 2.0 28 08/21/19 04:00 98.4 65 20 108/74 (85) 98 08/21/19 00:00 98.0 62 18 121/60 (80) 98 08/20/19 21:08 64 18 97 Nasal Cannula 2.0 28 08/20/19 21:08 97 Nasal Cannula 2.0 28 08/20/19 20:14 140/90 08/20/19 20:00 Nasal Cannula 2.0 08/20/19 20:00 98.0 79 20 140/90 (107) 100 08/20/19 17:49 75 17 100 Nasal Cannula 2.0 28 71 17 97 08/20/19 16:00 97.0 64 20 137/78 (97) 94 Intake and Output 08/20/19 08/21/19 19:00 07:00 Intake Total 480 ml Output Total 1000 ml Balance 480 ml -1000 ml Intake Oral 480 ml Output Urine Total 1000 ml # Voids 4 Microbiology Date/Time Source Procedure Growth Status 08/19/19 19:00 Stool Stool Culture - Preliminary NORMAL FECAL JS. Resulted 08/19/19 19:00 Stool Clostridium difficile Toxin Assay - Final Resulted Objective HEAD AND NECK: Showed no JVD. LUNGS: Decreased breath sounds with rhonchi. CARDIOVASCULAR: Regular S1 and S2 with no gallop. ABDOMEN: Soft. EXTREMITIES: Bilateral 2+ pitting edema Robbin Sinha MD Aug 21, 2019 13:32
[2019-08-21] MEDS ORDERED: Nitroglycerin Subl 0.4mg tab SL PRN (16:00)
--- NOTE | 2019-08-21 16:00 | NUR ---
NURSE NOTES: Pt. aware of transfer orders. VSS. AOx4. In 2L NC. Denies pain. Refused checking of belongings. Claims have everything with him and doesn't want no body to touch his stuff. Explained he himself can check his belongings with RNs however refused.
--- NOTE | 2019-08-21 16:05 | NUR ---
TRANSFER TO FLOOR: Patient transferred to 4E, per MD. Report given to NICKOLAS Monroy. Belongings and medications given to Eliana.
--- NOTE | 2019-08-21 16:14 | Diagnostic Imaging Report ---
EXAM: US Abdomen Complete CLINICAL HISTORY: ABD PAIN TECHNIQUE: Real-time ultrasound of the abdomen (complete) with image documentation. COMPARISON: No relevant prior studies available. FINDINGS: Liver: Echogenic liver suggesting fatty infiltration or hepatocellular disease. Gallbladder: No gallstones or biliary ductal dilatation. Common bile duct: Unremarkable as visualized. Pancreas: Pancreas is obscured. Kidneys: No hydronephrosis. Spleen: No splenomegaly. Aorta: Unremarkable. No aneurysm. Inferior vena cava: Unremarkable. IMPRESSION: No gallstones or biliary ductal dilatation.
--- NOTE | 2019-08-21 16:21 | NUR ---
NURSE NOTES: Receive patient from Telemetry,patient is alert,respirations unlabored.patient has personal belongings,patient state I have all my things but will not allow to see belongings.call light within reach ,bed alarm on.
[2019-08-21] MEDS: HYDROcodone/Acetamin 5/325 tab ORAL PRN ×2 (18:26→23:37)
--- NOTE | 2019-08-21 19:00 | NUR ---
NURSE NOTES: Patient resting,watching TV,pain medication was given at 1826 ,pains state level has decreased.Bed alarm on,call light within reach.
--- NOTE | 2019-08-21 19:22 | NUR ---
HAND-OFF: Report given to Holly OLMOS.
[2019-08-21] MEDS ORDERED: Simethicone 80mg tab ORAL PRN (20:00)
--- NOTE | 2019-08-21 20:00 | NUR ---
NURSE NOTES: Patient received in bed, aaox4, ambulatory, refused bed alarm, educated regarding fall risk, verbalized understanding. Refused complete skin assessment at this time, verbalized that his skin is intact and refused to remove pants for assessment. No other complaints. Patient placed on o2 via NC at 2LPM, noted with wheezing. RT called for HHN. Will continue plan of care.
[2019-08-21] MEDS: Miralax 17gm pkt ORAL SCH (20:19)
--- NOTE | 2019-08-21 21:00 | NUR ---
NURSE NOTES: Patient refused miralax. Patient stated he had diarrhea yesterday, stated he has poor appetite. Pt stated "Nothing more will come out if I hadn't eaten much." Explained indications and s/e of miralax, verbalized understanding.
--- NOTE | 2019-08-21 21:15 | Progress Note ---
DATE: 08/21/2019 SUBJECTIVE: The patient is a 79-year-old male patient. He continues to have altered mental status, confusion, and decline in cognition below his baseline. That is why, his attending physician has requested daily psychiatric consultation. DIAGNOSIS: Major depressive disorder, mild, recurrent with psychotic features, rule out dementia with psychosis. PLAN: Treat him with Namenda 5 mg twice a day and Zoloft 25 mg a day. A 20 minutes of cognitive behavioral therapy to help him identify his automatic negative thoughts and help him convert those negative thoughts to more positive thoughts to reduce depression, anxiety, and mood lability. Chart reviewed. Discussed with staff. Seen and assessed in his room. The patient did act appropriately with staff and other patients. Misha Bird M.D. DR: ARCADIO JOB#: [id number] CC:
[2019-08-22] MEDS: Albuterol/Ipratropium 3ml neb HHN PRN ×2 (04:10→17:35)
[2019-08-22 04:19] VITALS: BP 115/65
--- NOTE | 2019-08-22 07:19 | NUR ---
HAND-OFF: Report given to Makayla OLMOS.
--- NOTE | 2019-08-22 07:57 | NUR ---
NURSE NOTES: Patient eyes close,awake when name called,respirations unlabored.Patient aware breakfast at bedside.Call light within reach.
--- NOTE | 2019-08-22 08:08 | General Progress Note ---
Assessment/Plan Problem List: (1) Fatty liver ICD Codes: K76.0 - Fatty (change of) liver, not elsewhere classified SNOMED: 940118992 (2) CHF (congestive heart failure) ICD Codes: I50.9 - Heart failure, unspecified SNOMED: 27679364 (3) Emphysema ICD Codes: J43.9 - Emphysema SNOMED: 14068087 (4) Tobacco dependence ICD Codes: F17.200 - Nicotine dependence, unspecified, uncomplicated SNOMED: 77157469 (5) DJD (degenerative joint disease) ICD Codes: M19.90 - Unspecified osteoarthritis, unspecified site SNOMED: 288188915 (6) Elevated LFTs ICD Codes: R94.5 - Abnormal results of liver function studies SNOMED: 304259665, 006804685 (7) Diverticulosis ICD Codes: K57.90 - Diverticulosis of intestine, part unspecified, without perforation or abscess without bleeding SNOMED: 820243028 (8) Constipation ICD Codes: K59.00 - Constipation, unspecified SNOMED: 17542440 Status: stable, progressing Assessment/Plan: on bowel regimen with one BM today abd CT : IMPRESSION: Fatty liver. Suggestion of mild fibrosis at the right lung base. Other interstitial opacities nonspecific. Calcified granulomata within the spleen Moderate atherosclerotic vascular disease. Tiny left inguinal hernia containing fat Mild diverticulosis of the colon. Sclerotic appearing femoral heads. Query AVN. Moderate degenerative changes of the spine with severe disease in the lower lumbar spine. repeat labs neg stool ob plan EGd in am fu cardiology Subjective ROS Limited/Unobtainable: Yes Allergies: Coded Allergies: No Known Allergies (Unverified , 08/14/19) Subjective c/o abd pain had BM no bleeding Objective Last 24 Hour Vital Signs Date Time Temp Pulse Resp B/P (MAP) Pulse Ox O2 Delivery O2 Flow Rate FiO2 08/22/19 04:19 97.1 57 20 115/65 (82) 98 08/22/19 04:11 66 21 99 Nasal Cannula 2.0 28 64 22 97 08/21/19 23:37 97.3 58 20 109/65 (80) 98 08/21/19 21:00 Nasal Cannula 2.0 08/21/19 20:32 98 Nasal Cannula 2.0 28 08/21/19 20:32 62 21 99 Nasal Cannula 2.0 28 59 22 98 08/21/19 20:30 58 20 98 Nasal Cannula 2.0 28 08/21/19 20:24 127/66 08/21/19 20:00 97.1 59 20 127/66 (86) 99 08/21/19 16:00 98.0 66 22 138/70 (92) 100 08/21/19 12:00 98.7 67 17 128/79 (95) 100 08/21/19 10:07 98.1 08/21/19 09:00 Nasal Cannula 2.0 08/21/19 08:48 124/76 08/21/19 08:12 98.1 64 19 124/76 (92) 100 Intake and Output 08/21/19 08/22/19 19:00 07:00 Intake Total 300 ml 600 ml Balance 300 ml 600 ml Intake Oral 300 ml 600 ml # Voids 4 Height (Feet): 6 Height (Inches): 1.00 Weight (Pounds): 179 General Appearance: alert EENT: PERRL/EOMI Neck: supple Cardiovascular: normal rate Respiratory/Chest: lungs clear Abdomen: normal bowel sounds, non tender, soft Extremities: non-tender Won Bright MD Aug 22, 2019 08:08
[2019-08-22 08:17] VITALS: BP 98/68
[2019-08-22] MEDS: Bactrim-DS 1 tab ORAL SCH ×2 (08:30→20:26)
[2019-08-22] MEDS: Aspirin Baby 81mg ORAL SCH (08:30)
[2019-08-22] MEDS: Sucralfate 1gm tab ORAL SCH ×3 (08:30→18:40)
[2019-08-22] MEDS: Theophylline ER 100mg ORAL SCH ×2 (08:31→20:25)
[2019-08-22] MEDS: Sertraline 50mg tab ORAL SCH (08:31)
[2019-08-22] MEDS: Dronabinol 2.5mg Cap ORAL SCH ×3 (08:31→18:40)
[2019-08-22] MEDS: Lactulose 10gm/15ml UDC ORAL SCH ×3 (08:31→18:40)
[2019-08-22] MEDS: Heparin 5000 units/ml inj SUBQ SCH ×3 (08:37→20:26)
[2019-08-22] MEDS: Miralax 17gm pkt ORAL SCH (08:49)
--- NOTE | 2019-08-22 08:53 | General Progress Note ---
Assessment/Plan Problem List: (1) Emphysema ICD Codes: J43.9 - Emphysema SNOMED: 88399100 (2) History of CVA (cerebrovascular accident) ICD Codes: Z86.73 - History of stroke SNOMED: 371636901 Status: stable, progressing Assessment/Plan: pt sdiwt o2 pulm tx psyc cardio eval cbc bmp am dc to snf if clear Subjective Allergies: Coded Allergies: No Known Allergies (Unverified , 08/14/19) All Systems: reviewed and negative except above Subjective o2nc sl anxious Objective Last 24 Hour Vital Signs Date Time Temp Pulse Resp B/P (MAP) Pulse Ox O2 Delivery O2 Flow Rate FiO2 08/22/19 08:17 97.5 78 20 98/68 (78) 96 08/22/19 04:19 97.1 57 20 115/65 (82) 98 08/22/19 04:11 66 21 99 Nasal Cannula 2.0 28 64 22 97 08/21/19 23:37 97.3 58 20 109/65 (80) 98 08/21/19 21:00 Nasal Cannula 2.0 08/21/19 20:32 98 Nasal Cannula 2.0 28 08/21/19 20:32 62 21 99 Nasal Cannula 2.0 28 59 22 98 08/21/19 20:30 58 20 98 Nasal Cannula 2.0 28 08/21/19 20:24 127/66 08/21/19 20:00 97.1 59 20 127/66 (86) 99 08/21/19 16:00 98.0 66 22 138/70 (92) 100 08/21/19 12:00 98.7 67 17 128/79 (95) 100 08/21/19 10:07 98.1 08/21/19 09:00 Nasal Cannula 2.0 Intake and Output 08/21/19 08/22/19 19:00 07:00 Intake Total 300 ml 600 ml Balance 300 ml 600 ml Intake Oral 300 ml 600 ml # Voids 4 Height (Feet): 6 Height (Inches): 1.00 Weight (Pounds): 179 General Appearance: lethargic EENT: normal ENT inspection Neck: normal alignment Cardiovascular: normal peripheral pulses, normal rate, regular rhythm Respiratory/Chest: chest wall non-tender, lungs clear, normal breath sounds Abdomen: normal bowel sounds, non tender, soft Extremities: normal inspection Edema: no edema noted Arm (L), no edema noted Arm (R), no edema noted Leg (L), no edema noted Leg (R), no edema noted Pedal (L), no edema noted Pedal (R), no edema noted Generalized Neurologic: motor weakness Skin: normal pigmentation, warm/dry Fred Kay DO Aug 22, 2019 08:53
[2019-08-22] MEDS: cloNIDine 0.2mg Tab ORAL SCH ×2 (09:00→20:26)
[2019-08-22] MEDS: Furosemide 40mg tab ORAL SCH (09:00)
[2019-08-22] MEDS ORDERED: Pantoprazole Inj IVP SCH (09:00)
[2019-08-22] MEDS: Docusate 100mg cap ORAL SCH ×2 (09:00→18:00)
[2019-08-22] MEDS ORDERED: Furosemide 40mg tab ORAL SCH (09:00)
--- NOTE | 2019-08-22 10:53 | Pulmonology Progress Note ---
Assessment/Plan Assessment/Plan ASSESSMENT COPD exacerbation CHF with diastolic dysfunction HTN Emphysema acute bronchitis pulm nodule tobacco abuse hx of cocaine abuse DJD with chronic back pain Hx of CVA abdominal pain fatty liver diverticulosis constipation PLAN OF CARE MS floor tele O2 HHN steroids, and taper, empiric abx, SCX if able trial of theophylline a/tussive prn DVT prophylaxis, vp & general counsel on smoking cessation Nicotine patch - declined CT chest with tiny pulm nodules, some disappeared from previous exam diuresis with Lasix, monitor volumes, cardiorenal parameters, BNP trending down ECHO with pEF 60% and RVSP of 34 BP management with Clonidine, dose increased by cardio a/plt therapy with ASA, k lipid panel bowel regimen pain management urine tox negative GI follows CT of the abdomen and pelvis revealed fatty liver mild diverticulosis of the colon abd US -> No gallstones or biliary ductal dilatation. LFT trending up, follow-up with LFT hepatitis panel negative steroids tapered prior GI prophylaxis Carafate added EGD in am case discussed and evaluated by supervising physician Subjective Allergies: Coded Allergies: No Known Allergies (Unverified , 08/14/19) Subjective afebrile, no leukocytosis, no wheezing still with abd pain Objective Last 24 Hour Vital Signs Date Time Temp Pulse Resp B/P (MAP) Pulse Ox O2 Delivery O2 Flow Rate FiO2 08/22/19 09:13 97 Nasal Cannula 2.0 28 08/22/19 09:13 70 20 97 Nasal Cannula 2.0 28 08/22/19 09:00 Nasal Cannula 2.0 08/22/19 09:00 98/68 08/22/19 08:17 97.5 78 20 98/68 (78) 96 08/22/19 04:19 97.1 57 20 115/65 (82) 98 08/22/19 04:11 66 21 99 Nasal Cannula 2.0 28 64 22 97 08/21/19 23:37 97.3 58 20 109/65 (80) 98 08/21/19 21:00 Nasal Cannula 2.0 08/21/19 20:32 98 Nasal Cannula 2.0 28 08/21/19 20:32 62 21 99 Nasal Cannula 2.0 28 59 22 98 08/21/19 20:30 58 20 98 Nasal Cannula 2.0 28 08/21/19 20:24 127/66 08/21/19 20:00 97.1 59 20 127/66 (86) 99 08/21/19 16:00 98.0 66 22 138/70 (92) 100 08/21/19 12:00 98.7 67 17 128/79 (95) 100 Intake and Output 08/21/19 08/22/19 19:00 07:00 Intake Total 300 ml 600 ml Balance 300 ml 600 ml Intake Oral 300 ml 600 ml # Voids 4 Objective General Appearance: no acute distress HEENT: normocephalic, atraumatic, anicteric, mucous membranes moist Respiratory/Chest: no respiratory distress, no accessory muscle use, few isolated expiratory wheezes Cardiovascular: normal rate, regular rhythm Abdomen: soft, mild diffused tender with mild distention Extremities: pedal pulses normal Neurologic/Psychiatric: no motor/sensory deficits, alert, responsive Musculoskeletal: normal muscle bulk Microbiology Date/Time Source Procedure Growth Status 08/19/19 19:00 Stool Stool Culture - Final NO SALMONELLA,SHIGELLA,OR CAMPYLOBACT... Complete 08/19/19 19:00 Stool Clostridium difficile Toxin Assay - Final Complete Current Medications Medications (Trade) Dose Ordered Sig/Aguila Route PRN Reason Start Time Stop Time Status Last Admin Dose Admin Acetaminophen (Tylenol) 650 mg Q4H PRN ORAL Mild Pain/Temp > 100.5 08/21/19 16:08 09/13/19 16:07 08/21/19 22:35 Acetaminophen/ Hydrocodone Bitart ([place] 5/325) 1 tab TID PRN ORAL Moderate Pain (Pain Scale 4-6) 08/21/19 16:11 08/28/19 16:10 08/21/19 23:37 Albuterol/ Ipratropium (Albuterol/ Ipratropium) 3 ml Q4H PRN HHN dyspnea 08/21/19 16:09 08/23/19 16:08 08/22/19 04:10 Aspirin (ASA) 81 mg DAILY ORAL 08/22/19 09:00 09/13/19 11:14 08/22/19 08:30 Clonidine HCl (Catapres tab) 0.2 mg Q12HR ORAL 08/21/19 21:00 09/16/19 20:59 08/21/19 20:24 Dextrose (Dextrose 50%) 25 ml Q30M PRN IV Hypoglycemia 08/21/19 16:08 09/13/19 16:07 Dextrose (Dextrose 50%) 50 ml Q30M PRN IV Hypoglycemia 08/21/19 16:09 09/13/19 16:08 Docusate Sodium (Colace) 100 mg TWICE A DAY ORAL 08/21/19 18:00 09/16/19 08:59 Dronabinol (Marinol) 2.5 mg TID ORAL 08/21/19 18:00 09/15/19 12:59 08/22/19 08:31 Furosemide (Lasix) 40 mg DAILY ORAL 08/22/19 09:00 09/21/19 08:59 Heparin Sodium (Porcine) (Heparin 5000 units/ml) 5,000 units EVERY 12 HOURS SUBQ 08/22/19 09:00 09/13/19 08:59 Lactulose (Cephulac) 10 gm THREE TIMES A DAY ORAL 08/21/19 18:00 09/17/19 08:59 08/22/19 08:31 Nitroglycerin (Ntg) 0.4 mg Q5M X 3 DOSES PRN SL Prn Chest Pain 08/21/19 16:00 09/13/19 06:44 Ondansetron HCl (Zofran) 4 mg Q6H PRN IVP Nausea & Vomiting 08/21/19 16:10 09/13/19 16:09 Pantoprazole (Protonix) 40 mg DAILY IVP 08/22/19 09:00 09/19/19 08:59 08/22/19 08:30 Polyethylene Glycol (Miralax) 17 gm BEDTIME ORAL 08/21/19 21:00 09/17/19 20:59 Promethazine HCl/ Codeine (Phenergan with Codeine) 5 ml Q6H PRN ORAL cough 08/21/19 16:10 09/13/19 16:09 Sertraline HCl (Zoloft) 25 mg DAILY ORAL 08/22/19 09:00 09/15/19 08:59 08/22/19 08:31 Simethicone (Mylicon) 80 mg Q6H PRN ORAL Abdominal cramps 08/21/19 20:00 09/19/19 07:59 Sucralfate (Carafate) 1 gm TID ORAL 08/21/19 18:00 09/19/19 08:59 08/22/19 08:30 Theophylline (Rigoberto-Dur) 100 mg EVERY 12 HOURS ORAL 08/21/19 21:00 09/13/19 08:59 08/22/19 08:31 Trimethoprim/ Sulfamethoxazole (Bactrim-DS) 1 tab Q12HR ORAL 08/21/19 21:00 08/23/19 20:59 08/22/19 08:30 Mariana Canada HEMATOLOGY SPECIALIST Aug 22, 2019 10:53
--- NOTE | 2019-08-22 11:45 | Progress Note ---
DATE: 08/22/2019 SUBJECTIVE: This a 79-year-old male patient with COPD. The patient is very confused, disorganized, agitated, irritable, and mood labile. No logical plan for his own care. He has increased depression. He states "I feel still depressed." . MENTAL STATUS EXAMINATION: This is a 79-year-old male. Appearance is disheveled. Attitude, irritable and agitated. Affect, guarded and restricted. Intellect poor. Mood, depressed and anxious. Motor activity, psychomotor agitation. Insight and judgment poor. DIAGNOSIS: Major depressive disorder, mild, recurrent with psychotic features, rule out dementia with psychosis. PLAN: Treat him with Namenda 5 mg twice a day, Zoloft 25 mg daily. A 20 minutes of cognitive behavioral therapy to help him identify his automatic negative thoughts and help him convert those negative thoughts to more positive thoughts to reduce depression, anxiety, and mood lability. Chart reviewed and discussed with staff. The patient is seen and assessed at bedside. Misha Bird M.D. DR: AMOL JOB#: [id number] CC:
[2019-08-22 12:17] VITALS: BP 118/60
--- NOTE | 2019-08-22 15:05 | NUR ---
CHARGE NURSE NOTE: Pt refused to do EGD. notified, message left.
[2019-08-22 16:15] VITALS: BP 112/73
--- NOTE | 2019-08-22 18:45 | NUR ---
NURSE NOTES: Patient resting ,received breathing treatment,patient state he is feeling better.Patient IV is out,refusing IV restart at this time,patient state maybe later but not now.Landen light within reach.
--- NOTE | 2019-08-22 19:30 | NUR ---
HAND-OFF: Report given to Holly OLMOS.
--- NOTE | 2019-08-22 19:30 | NUR ---
NURSE NOTES: Patient received asleep, arousable in bed. On o2 via NC. No IV access, refused to have IV access because of multiple arm bruisings. Explained importance of IV access while hospitalized. Verbalized understanding but still refused. Dr. bowden made aware and change IV protonix to PO. Will continue plan of care.
[2019-08-22 20:05] VITALS: BP 109/59
[2019-08-22 23:53] VITALS: BP_SYST 11; BP_SYST 116; BP_DIAS 66
[2019-08-23] MEDS: Albuterol/Ipratropium 3ml neb HHN PRN ×2 (00:01→05:29)
[2019-08-23] MEDS: Promethazine/Codeine 5ml UD ORAL PRN (02:31)
[2019-08-23] MEDS: HYDROcodone/Acetamin 5/325 tab ORAL PRN (02:33)
--- NOTE | 2019-08-23 02:34 | NUR ---
NURSE NOTES: Patient requested another breathing treatment, last HHN was administered at midnight. Next dose is not due yet. Attempted to check patient's O2 saturation, patient became irritable and refused to keep Pulse ox. Attempted to help patient put back his nasal canula, but patient swatted RN's hands and became agitated. Patient appeared restless, attempted to calm patient down. Cough medicine and pain medicine given to patient as patient requested. Will continue close monitoring.
--- NOTE | 2019-08-23 07:20 | NUR ---
NURSE NOTES: received patient in bed,patient awake, alert, oriented x4, no sign of distress,no IV access noted , on fall precaution Call light and personal belongings within reach. Will continue plan of care nathan wade
--- NOTE | 2019-08-23 07:28 | NUR ---
HAND-OFF: Report given to Elisabeth OLMOS. Addendum: 08/23/19 at [id number] by NATI HANESN RN RN Spoke with GI lab, patient refused EGD
[2019-08-23 07:44] VITALS: BP 144/72
[2019-08-23] MEDS: Docusate 100mg cap ORAL SCH ×2 (08:10→17:20)
[2019-08-23] MEDS: cloNIDine 0.2mg Tab ORAL SCH ×2 (08:10→20:44)
[2019-08-23] MEDS: Lactulose 10gm/15ml UDC ORAL SCH ×3 (08:10→17:20)
[2019-08-23] MEDS: Aspirin Baby 81mg ORAL SCH (08:11)
[2019-08-23] MEDS: Bactrim-DS 1 tab ORAL SCH (08:11)
[2019-08-23] MEDS: Sucralfate 1gm tab ORAL SCH ×3 (08:11→17:19)
[2019-08-23] MEDS: Sertraline 50mg tab ORAL SCH (08:12)
[2019-08-23] MEDS: Theophylline ER 100mg ORAL SCH ×2 (08:12→20:44)
[2019-08-23] MEDS: Dronabinol 2.5mg Cap ORAL SCH ×3 (08:15→17:20)
[2019-08-23] MEDS: Heparin 5000 units/ml inj SUBQ SCH ×2 (08:15→20:44)
[2019-08-23] MEDS: Furosemide 40mg tab ORAL SCH (08:18)
[2019-08-23 08:28] LABS: BASOPHILS % (AUTO) 0.9 % (0.0-2.0); EOSINOPHILS % (AUTO) 1.6 % (0.0-3.0); HEMATOCRIT 37.2 % (42.0-52.0); HEMOGLOBIN 13.2 G/DL (14.2-18.0); LYMPHOCYTES % (AUTO) 17.5 % (20.0-45.0); MEAN CORPUSCULAR VOLUME 96 FL (80-99); MONOCYTES % (AUTO) 16.5 % (1.0-10.0); NEUTROPHILS % (AUTO) 63.5 % (45.0-75.0); PLATELET COUNT 213 K/UL (150-450); RED BLOOD COUNT 3.86 M/UL (4.70-6.10); RED CELL DISTRIBUTION WIDTH 13.2 % (11.6-14.8); WHITE BLOOD COUNT 8.6 K/UL (4.8-10.8)
[2019-08-23 08:58] LABS: ALANINE AMINOTRANSFERASE 107 U/L (12-78); ALBUMIN 3.5 G/DL (3.4-5.0); ALBUMIN/GLOBULIN RATIO 1.1 (1.0-2.7); ALKALINE PHOSPHATASE 42 U/L (46-116); ANION GAP 9 mmol/L (5-15); ASPARTATE AMINO TRANSFERASE 38 U/L (15-37); BILIRUBIN,TOTAL 0.3 MG/DL (0.2-1.0); BLOOD UREA NITROGEN 15 mg/dL (7-18); CARBON DIOXIDE 27 MMOL/L (21-32); CHLORIDE 96 MMOL/L (98-107); POTASSIUM 5.2 MMOL/L (3.5-5.1); SODIUM 132 MMOL/L (136-145)
--- NOTE | 2019-08-23 09:11 | General Progress Note ---
Assessment/Plan Problem List: (1) Emphysema ICD Codes: J43.9 - Emphysema SNOMED: 03799010 (2) History of CVA (cerebrovascular accident) ICD Codes: Z86.73 - History of stroke SNOMED: 192227687 Status: stable, progressing Assessment/Plan: pt sdiwt o2 pulm tx psyc cardio eval cbc bmp am dc to snf if clear Subjective Constitutional: Reports: weakness Allergies: Coded Allergies: No Known Allergies (Unverified , 08/14/19) All Systems: reviewed and negative except above Subjective o2nc sleepy Objective Last 24 Hour Vital Signs Date Time Temp Pulse Resp B/P (MAP) Pulse Ox O2 Delivery O2 Flow Rate FiO2 08/23/19 08:10 144/72 08/23/19 07:44 97.7 74 20 144/72 (96) 93 08/23/19 05:29 81 20 98 Nasal Cannula 2.0 28 78 20 93 08/23/19 00:01 77 20 99 Nasal Cannula 2.0 28 74 20 96 08/22/19 23:58 96 Nasal Cannula 2.0 28 08/22/19 23:58 74 20 96 Nasal Cannula 2.0 28 08/22/19 23:53 97.5 75 20 116/66 (83) 93 08/22/19 20:43 Nasal Cannula 2.0 08/22/19 20:26 109/59 08/22/19 20:05 97.2 60 20 109/59 (76) 99 08/22/19 17:33 66 21 99 Nasal Cannula 2.0 28 66 20 96 08/22/19 16:15 97.3 63 20 112/73 (86) 98 08/22/19 12:17 97.0 75 20 118/60 (79) 93 08/22/19 09:13 97 Nasal Cannula 2.0 28 08/22/19 09:13 70 20 97 Nasal Cannula 2.0 28 Intake and Output 08/22/19 08/23/19 19:00 07:00 Intake Total 506 ml Balance 506 ml Intake Oral 506 ml # Voids 5 # Bowel Movements 1 Laboratory Tests 08/23/19 07:35: White Blood Count 8.6, Red Blood Count 3.86L, Hemoglobin 13.2L, Hematocrit 37.2L , Mean Corpuscular Volume 96, Mean Corpuscular Hemoglobin 34.2H, Mean Corpuscular Hemoglobin Concent 35.5, Red Cell Distribution Width 13.2, Platelet Count 213, Mean Platelet Volume 5.9L, Neutrophils (%) (Auto) 63.5, Lymphocytes ( %) (Auto) 17.5L, Monocytes (%) (Auto) 16.5H, Eosinophils (%) (Auto) 1.6, Basophils (%) (Auto) 0.9, Sodium Level 132L, Potassium Level 5.2H, Chloride Level 96L, Carbon Dioxide Level 27, Anion Gap 9, Blood Urea Nitrogen 15, Creatinine 1.0, Estimat Glomerular Filtration Rate , Glucose Level 88, Calcium Level 9.0, Total Bilirubin 0.3, Aspartate Amino Transf (AST/SGOT) 38H, Alanine Aminotransferase (ALT/SGPT) 107H, Alkaline Phosphatase 42L, Total Protein 6.7, Albumin 3.5, Globulin 3.2, Albumin/Globulin Ratio 1.1 Height (Feet): 6 Height (Inches): 1.00 Weight (Pounds): 179 General Appearance: lethargic EENT: normal ENT inspection Neck: normal alignment Cardiovascular: normal peripheral pulses, normal rate, regular rhythm Respiratory/Chest: chest wall non-tender, lungs clear, normal breath sounds Abdomen: normal bowel sounds, non tender, soft Extremities: normal inspection Edema: no edema noted Arm (L), no edema noted Arm (R), no edema noted Leg (L), no edema noted Leg (R), no edema noted Pedal (L), no edema noted Pedal (R), no edema noted Generalized Neurologic: motor weakness Skin: normal pigmentation, warm/dry Fred Kay DO Aug 23, 2019 09:11
--- NOTE | 2019-08-23 09:54 | General Progress Note ---
Assessment/Plan Problem List: (1) Fatty liver ICD Codes: K76.0 - Fatty (change of) liver, not elsewhere classified SNOMED: 959001334 (2) CHF (congestive heart failure) ICD Codes: I50.9 - Heart failure, unspecified SNOMED: 98376408 (3) Emphysema ICD Codes: J43.9 - Emphysema SNOMED: 07496408 (4) Tobacco dependence ICD Codes: F17.200 - Nicotine dependence, unspecified, uncomplicated SNOMED: 04158164 (5) DJD (degenerative joint disease) ICD Codes: M19.90 - Unspecified osteoarthritis, unspecified site SNOMED: 655227843 (6) Elevated LFTs ICD Codes: R94.5 - Abnormal results of liver function studies SNOMED: 981623013, 243174457 (7) Diverticulosis ICD Codes: K57.90 - Diverticulosis of intestine, part unspecified, without perforation or abscess without bleeding SNOMED: 852441757 (8) Constipation ICD Codes: K59.00 - Constipation, unspecified SNOMED: 16307813 Status: stable, progressing Assessment/Plan: on bowel regimen with one BM today abd CT : IMPRESSION: Fatty liver. Suggestion of mild fibrosis at the right lung base. Other interstitial opacities nonspecific. Calcified granulomata within the spleen Moderate atherosclerotic vascular disease. Tiny left inguinal hernia containing fat Mild diverticulosis of the colon. Sclerotic appearing femoral heads. Query AVN. Moderate degenerative changes of the spine with severe disease in the lower lumbar spine. repeat labs neg stool ob refused EGD improving lfts fu cardiology Subjective ROS Limited/Unobtainable: Yes Allergies: Coded Allergies: No Known Allergies (Unverified , 08/14/19) Subjective c/o abd pain had BM no bleeding Objective Last 24 Hour Vital Signs Date Time Temp Pulse Resp B/P (MAP) Pulse Ox O2 Delivery O2 Flow Rate FiO2 08/23/19 08:10 144/72 08/23/19 07:44 97.7 74 20 144/72 (96) 93 08/23/19 05:29 81 20 98 Nasal Cannula 2.0 28 78 20 93 08/23/19 00:01 77 20 99 Nasal Cannula 2.0 28 74 20 96 08/22/19 23:58 96 Nasal Cannula 2.0 28 08/22/19 23:58 74 20 96 Nasal Cannula 2.0 28 08/22/19 23:53 97.5 75 20 116/66 (83) 93 08/22/19 20:43 Nasal Cannula 2.0 08/22/19 20:26 109/59 08/22/19 20:05 97.2 60 20 109/59 (76) 99 08/22/19 17:33 66 21 99 Nasal Cannula 2.0 28 66 20 96 08/22/19 16:15 97.3 63 20 112/73 (86) 98 08/22/19 12:17 97.0 75 20 118/60 (79) 93 Intake and Output 08/22/19 08/23/19 19:00 07:00 Intake Total 506 ml Balance 506 ml Intake Oral 506 ml # Voids 5 # Bowel Movements 1 Laboratory Tests 08/23/19 07:35: White Blood Count 8.6, Red Blood Count 3.86L, Hemoglobin 13.2L, Hematocrit 37.2L , Mean Corpuscular Volume 96, Mean Corpuscular Hemoglobin 34.2H, Mean Corpuscular Hemoglobin Concent 35.5, Red Cell Distribution Width 13.2, Platelet Count 213, Mean Platelet Volume 5.9L, Neutrophils (%) (Auto) 63.5, Lymphocytes ( %) (Auto) 17.5L, Monocytes (%) (Auto) 16.5H, Eosinophils (%) (Auto) 1.6, Basophils (%) (Auto) 0.9, Sodium Level 132L, Potassium Level 5.2H, Chloride Level 96L, Carbon Dioxide Level 27, Anion Gap 9, Blood Urea Nitrogen 15, Creatinine 1.0, Estimat Glomerular Filtration Rate , Glucose Level 88, Calcium Level 9.0, Total Bilirubin 0.3, Aspartate Amino Transf (AST/SGOT) 38H, Alanine Aminotransferase (ALT/SGPT) 107H, Alkaline Phosphatase 42L, Total Protein 6.7, Albumin 3.5, Globulin 3.2, Albumin/Globulin Ratio 1.1 Height (Feet): 6 Height (Inches): 1.00 Weight (Pounds): 179 General Appearance: alert EENT: normal ENT inspection Neck: supple Cardiovascular: normal rate Respiratory/Chest: lungs clear Abdomen: normal bowel sounds, non tender, soft Extremities: non-tender Won Bright MD Aug 23, 2019 09:54
--- NOTE | 2019-08-23 11:46 | Cardiac Electrophysiology PN ---
Assessment/Plan Assessment/Plan 1. Severe bilateral lower extremity edema and shortness of breath. Likely due to CHF due to diastolic dysfunction, EF 60% BNP decreased from 2500 to 1700 . On Lasix 40 po daily 2. Accelerated HTN. On Lasix 40 po daily and clonidine 0.2 mg bid 3. COPD on Rigoberto-Dur, Solu-Medrol and antibiotic. 4. Abdominal pain. Abd US was negative, FU GI DW RN Wants to go back to street( lives in his car) Subjective Subjective Alert in NAD. DC planning in progress. Transferred to [facility]. RN at bedside. Objective Last 24 Hour Vital Signs Date Time Temp Pulse Resp B/P (MAP) Pulse Ox O2 Delivery O2 Flow Rate FiO2 08/23/19 09:00 Nasal Cannula 2.0 08/23/19 08:10 144/72 08/23/19 07:44 97.7 74 20 144/72 (96) 93 08/23/19 05:29 81 20 98 Nasal Cannula 2.0 28 78 20 93 08/23/19 00:01 77 20 99 Nasal Cannula 2.0 28 74 20 96 08/22/19 23:58 96 Nasal Cannula 2.0 28 08/22/19 23:58 74 20 96 Nasal Cannula 2.0 28 08/22/19 23:53 97.5 75 20 116/66 (83) 93 08/22/19 20:43 Nasal Cannula 2.0 08/22/19 20:26 109/59 08/22/19 20:05 97.2 60 20 109/59 (76) 99 08/22/19 17:33 66 21 99 Nasal Cannula 2.0 28 66 20 96 08/22/19 16:15 97.3 63 20 112/73 (86) 98 08/22/19 12:17 97.0 75 20 118/60 (79) 93 Intake and Output 08/22/19 08/23/19 18:59 06:59 Intake Total 506 ml Balance 506 ml Intake Oral 506 ml # Voids 5 # Bowel Movements 1 Laboratory Tests Test 08/23/19 07:35 White Blood Count 8.6 K/UL (4.8-10.8) Red Blood Count 3.86 M/UL (4.70-6.10) L Hemoglobin 13.2 G/DL (14.2-18.0) L Hematocrit 37.2 % (42.0-52.0) L Mean Corpuscular Volume 96 FL (80-99) Mean Corpuscular Hemoglobin 34.2 PG (27.0-31.0) H Mean Corpuscular Hemoglobin Concent 35.5 G/DL (32.0-36.0) Red Cell Distribution Width 13.2 % (11.6-14.8) Platelet Count 213 K/UL (150-450) Mean Platelet Volume 5.9 FL (6.5-10.1) L Neutrophils (%) (Auto) 63.5 % (45.0-75.0) Lymphocytes (%) (Auto) 17.5 % (20.0-45.0) L Monocytes (%) (Auto) 16.5 % (1.0-10.0) H Eosinophils (%) (Auto) 1.6 % (0.0-3.0) Basophils (%) (Auto) 0.9 % (0.0-2.0) Sodium Level 132 MMOL/L (136-145) L Potassium Level 5.2 MMOL/L (3.5-5.1) H Chloride Level 96 MMOL/L (98-107) L Carbon Dioxide Level 27 MMOL/L (21-32) Anion Gap 9 mmol/L (5-15) Blood Urea Nitrogen 15 mg/dL (7-18) Creatinine 1.0 MG/DL (0.55-1.30) Estimat Glomerular Filtration Rate mL/min (>60) Glucose Level 88 MG/DL (74-106) Calcium Level 9.0 MG/DL (8.5-10.1) Total Bilirubin 0.3 MG/DL (0.2-1.0) Aspartate Amino Transf (AST/SGOT) 38 U/L (15-37) H Alanine Aminotransferase (ALT/SGPT) 107 U/L (12-78) H Alkaline Phosphatase 42 U/L (46-116) L Total Protein 6.7 G/DL (6.4-8.2) Albumin 3.5 G/DL (3.4-5.0) Globulin 3.2 g/dL Albumin/Globulin Ratio 1.1 (1.0-2.7) Objective HEAD AND NECK: Showed no JVD. LUNGS: Decreased breath sounds with rhonchi. CARDIOVASCULAR: Regular S1 and S2 with no gallop. ABDOMEN: Soft. EXTREMITIES: Bilateral 2+ pitting edema Robbin Sinha MD Aug 23, 2019 11:46
--- NOTE | 2019-08-23 12:28 | Pulmonology Progress Note ---
Assessment/Plan Problems: (1) Acute exacerbation of chronic obstructive airways disease (2) Acute bronchitis (3) Pulmonary nodule (4) Emphysema (5) Peripheral neuropathy (6) History of cocaine abuse (7) Chronic back pain (8) DJD (degenerative joint disease) Assessment/Plan med/surg slightly better EF: 60% respiratory treatment sputum, not collected yet stool for OB was negative Subjective ROS Limited/Unobtainable: No Interval Events: still short of breath, coughing Allergies: Coded Allergies: No Known Allergies (Unverified , 08/14/19) Objective Last 24 Hour Vital Signs Date Time Temp Pulse Resp B/P (MAP) Pulse Ox O2 Delivery O2 Flow Rate FiO2 08/23/19 09:00 Nasal Cannula 2.0 08/23/19 08:10 144/72 08/23/19 07:44 97.7 74 20 144/72 (96) 93 08/23/19 05:29 81 20 98 Nasal Cannula 2.0 28 78 20 93 08/23/19 00:01 77 20 99 Nasal Cannula 2.0 28 74 20 96 08/22/19 23:58 96 Nasal Cannula 2.0 28 08/22/19 23:58 74 20 96 Nasal Cannula 2.0 28 08/22/19 23:53 97.5 75 20 116/66 (83) 93 08/22/19 20:43 Nasal Cannula 2.0 08/22/19 20:26 109/59 08/22/19 20:05 97.2 60 20 109/59 (76) 99 08/22/19 17:33 66 21 99 Nasal Cannula 2.0 28 66 20 96 08/22/19 16:15 97.3 63 20 112/73 (86) 98 Intake and Output 08/22/19 08/23/19 19:00 07:00 Intake Total 506 ml Balance 506 ml Intake Oral 506 ml # Voids 5 # Bowel Movements 1 Objective General Appearance: WN, WD, WH Lines, tubes and drains: peripheral HEENT: normocephalic, atraumatic Neck: non-tender, normal alignment Respiratory/Chest: chest wall non-tender, rhonchi - right, expiratory wheezing Breasts: no masses Cardiovascular/Chest: normal peripheral pulses Abdomen: normal bowel sounds, non tender, hyperactive bowel sounds Extremities: normal range of motion Laboratory Tests 08/23/19 07:35: White Blood Count 8.6, Red Blood Count 3.86L, Hemoglobin 13.2L, Hematocrit 37.2L , Mean Corpuscular Volume 96, Mean Corpuscular Hemoglobin 34.2H, Mean Corpuscular Hemoglobin Concent 35.5, Red Cell Distribution Width 13.2, Platelet Count 213, Mean Platelet Volume 5.9L, Neutrophils (%) (Auto) 63.5, Lymphocytes ( %) (Auto) 17.5L, Monocytes (%) (Auto) 16.5H, Eosinophils (%) (Auto) 1.6, Basophils (%) (Auto) 0.9, Sodium Level 132L, Potassium Level 5.2H, Chloride Level 96L, Carbon Dioxide Level 27, Anion Gap 9, Blood Urea Nitrogen 15, Creatinine 1.0, Estimat Glomerular Filtration Rate , Glucose Level 88, Calcium Level 9.0, Total Bilirubin 0.3, Aspartate Amino Transf (AST/SGOT) 38H, Alanine Aminotransferase (ALT/SGPT) 107H, Alkaline Phosphatase 42L, Total Protein 6.7, Albumin 3.5, Globulin 3.2, Albumin/Globulin Ratio 1.1 Current Medications Medications (Trade) Dose Ordered Sig/[place] Route PRN Reason Start Time Stop Time Status Last Admin Dose Admin Acetaminophen (Tylenol) 650 mg Q4H PRN ORAL Mild Pain/Temp > 100.5 08/21/19 16:08 09/13/19 16:07 08/21/19 22:35 Acetaminophen/ Hydrocodone Bitart ([place] 5/325) 1 tab TID PRN ORAL Moderate Pain (Pain Scale 4-6) 08/21/19 16:11 08/28/19 16:10 08/23/19 02:33 Albuterol/ Ipratropium (Albuterol/ Ipratropium) 3 ml Q4H PRN HHN dyspnea 08/21/19 16:09 08/23/19 16:08 08/23/19 05:29 Aspirin (ASA) 81 mg DAILY ORAL 08/22/19 09:00 09/13/19 11:14 08/23/19 08:11 Clonidine HCl (Catapres tab) 0.2 mg Q12HR ORAL 08/21/19 21:00 09/16/19 20:59 08/23/19 08:10 Dextrose (Dextrose 50%) 25 ml Q30M PRN IV Hypoglycemia 08/21/19 16:08 3/2/20 16:07 Dextrose (Dextrose 50%) 50 ml Q30M PRN IV Hypoglycemia 08/21/19 16:09 09/13/19 16:08 Docusate Sodium (Colace) 100 mg TWICE A DAY ORAL 08/21/19 18:00 09/16/19 08:59 08/23/19 08:10 Dronabinol (Marinol) 2.5 mg TID ORAL 08/21/19 18:00 09/15/19 12:59 08/23/19 12:19 Furosemide (Lasix) 40 mg DAILY ORAL 08/22/19 09:00 09/21/19 08:59 Heparin Sodium (Porcine) (Heparin 5000 units/ml) 5,000 units EVERY 12 HOURS SUBQ 08/22/19 09:00 09/13/19 08:59 08/23/19 08:15 Lactulose (Cephulac) 10 gm THREE TIMES A DAY ORAL 08/21/19 18:00 09/17/19 08:59 08/23/19 12:19 Nitroglycerin (Ntg) 0.4 mg Q5M X 3 DOSES PRN SL Prn Chest Pain 08/21/19 16:00 09/13/19 06:44 Ondansetron HCl (Zofran) 4 mg Q6H PRN IVP Nausea & Vomiting 08/21/19 16:10 09/13/19 16:09 Pantoprazole (Protonix) 40 mg DAILY ORAL 08/23/19 09:00 09/22/19 08:59 08/23/19 08:12 Polyethylene Glycol (Miralax) 17 gm BEDTIME ORAL 08/21/19 21:00 09/17/19 20:59 Promethazine HCl/ Codeine (Phenergan with Codeine) 5 ml Q6H PRN ORAL cough 08/21/19 16:10 09/13/19 16:09 08/23/19 02:31 Sertraline HCl (Zoloft) 25 mg DAILY ORAL 08/22/19 09:00 09/15/19 08:59 08/23/19 08:12 Simethicone (Mylicon) 80 mg Q6H PRN ORAL Abdominal cramps 08/21/19 20:00 09/19/19 07:59 Sucralfate (Carafate) 1 gm TID ORAL 08/21/19 18:00 09/19/19 08:59 08/23/19 12:19 Theophylline (Rigoberto-Dur) 100 mg EVERY 12 HOURS ORAL 08/21/19 21:00 09/13/19 08:59 08/23/19 08:12 Trimethoprim/ Sulfamethoxazole (Bactrim-DS) 1 tab Q12HR ORAL 08/21/19 21:00 08/23/19 20:59 08/23/19 08:11 Farhan Ortega MD Aug 23, 2019 12:28
[2019-08-23 16:00] VITALS: BP 124/70
--- NOTE | 2019-08-23 16:15 | NUR ---
CASE MANAGEMENT:REVIEW SI;AC COPD EXACERBATION. AC BRONCHITIS. 97.7 81 20 144/72 93% 2L NC FIO2 @ 28% NA 132 K+ 5.2 AST 38 ALT 107 IS;TYREE-DUR PO Q12 HRS BACTRIM DS PO Q12 HRS LACTULOSE PO TID DUO NEB HHN Q4 HRS PHENERGAN PO Q6 HRS MARINOL PO TID MED SURG STATUS DCP;SNF PLACEMENT
--- NOTE | 2019-08-23 17:03 | NUR ---
*_* DISCHARGE PLANNING NOTE*_* PATIENT ACCEPTED AT [facility] PER MICAELA TO RM 112-A SKILLED PATIENT INFORMED AT BEDSIDE AND REFUSED TRANSFER TODAY. SAYS HE WILL GO TOMORROW. OFFERED FOR PATIENT TO BE TRANSFERRED IN THE MORNING AT 8 AM. PATIENT STATED "I AM NOT GOING ANYWHERE AT THAT TIME, IT'S TOO EARLY. YOU CAN TAKE ME AT 2 OR 3 PM". RN AND CM DIRECTOR AWARE PATIENT REFUSING TO LEAVE [facility] TODAY.
--- NOTE | 2019-08-23 19:30 | NUR ---
NURSE NOTES: Received patient awake in bed, alert, oriented x4, no sign of distress, no c/o pain at this time. no IV access noted , on fall precaution, patient wearing non slip socks, bed low and locked. Call light and personal belongings within reach.
--- NOTE | 2019-08-23 19:32 | NUR ---
HAND-OFF: Report given to NICKOLAS Jordan RN
[2019-08-23 20:00] VITALS: BP 127/70
[2019-08-23] MEDS: Miralax 17gm pkt ORAL SCH (20:45)
--- NOTE | 2019-08-23 21:00 | Progress Note ---
DATE: 08/23/2019 SUBJECTIVE: A 79-year-old male patient with COPD. This is a patient who is a 79-year-old male patient. He is confused, disorganized, mood labile. He has got a lot of psychomotor agitation and irritability as well, worsened by stress of his medical illness. That is why his attending has requested daily psychiatric consultation because of his mood lability, psychomotor agitation, and anxiety. He has elevated LFTs, acute exacerbation of COPD, constipation, respiratory failure, bacteremia, degenerative joint disease, peripheral neuropathy, and emphysema. MENTAL STATUS EXAMINATION: This is a 79-year-old male. Appearance is disheveled. Attitude, irritable and agitated. Affect is guarded and restricted. Intellect, poor. Mood, depressed and anxious. Motor activity, psychomotor agitation. Attention span is poor. Orientation x2. Speech is pressured. Thought process, disorganized. Insight and judgment are poor. DIAGNOSES: 1. Major depressive disorder, mild, recurrent. 2. . PLAN: Plan for this patient is to treat him with Zoloft 25 mg daily. Twenty minutes of cognitive behavioral therapy to help him identify his automatic negative thoughts and help him convert negative thoughts to more positive thoughts to reduce depression, anxiety, and mood lability. Chart was reviewed. Discussed with the staff. Seen and assessed at bedside. Misha Bird M.D. DR: CORINE JOB#: [id number] CC:
[2019-08-24 00:31] VITALS: BP 113/71
--- NOTE | 2019-08-24 07:44 | General Progress Note ---
Assessment/Plan Problem List: (1) Fatty liver ICD Codes: K76.0 - Fatty (change of) liver, not elsewhere classified SNOMED: 519939182 (2) CHF (congestive heart failure) ICD Codes: I50.9 - Heart failure, unspecified SNOMED: 75420699 (3) Emphysema ICD Codes: J43.9 - Emphysema SNOMED: 48897438 (4) Tobacco dependence ICD Codes: F17.200 - Nicotine dependence, unspecified, uncomplicated SNOMED: 94793746 (5) DJD (degenerative joint disease) ICD Codes: M19.90 - Unspecified osteoarthritis, unspecified site SNOMED: 617677396 (6) Elevated LFTs ICD Codes: R94.5 - Abnormal results of liver function studies SNOMED: 703457454, 669681382 (7) Diverticulosis ICD Codes: K57.90 - Diverticulosis of intestine, part unspecified, without perforation or abscess without bleeding SNOMED: 246222065 (8) Constipation ICD Codes: K59.00 - Constipation, unspecified SNOMED: 99730695 Status: stable, progressing Assessment/Plan: on bowel regimen with one BM today abd CT : IMPRESSION: Fatty liver. Suggestion of mild fibrosis at the right lung base. Other interstitial opacities nonspecific. Calcified granulomata within the spleen Moderate atherosclerotic vascular disease. Tiny left inguinal hernia containing fat Mild diverticulosis of the colon. Sclerotic appearing femoral heads. Query AVN. Moderate degenerative changes of the spine with severe disease in the lower lumbar spine. repeat labs neg stool ob refused EGD improving lfts fu cardiology Subjective ROS Limited/Unobtainable: Yes Allergies: Coded Allergies: No Known Allergies (Unverified , 08/14/19) Subjective c/o abd pain had BM no bleeding Objective Last 24 Hour Vital Signs Date Time Temp Pulse Resp B/P (MAP) Pulse Ox O2 Delivery O2 Flow Rate FiO2 08/24/19 02:22 77 20 95 Nasal Cannula 2.0 28 08/24/19 02:22 95 Nasal Cannula 2.0 28 08/24/19 00:31 97.9 72 17 113/71 (85) 93 08/23/19 23:00 Room Air 08/23/19 20:44 127/70 08/23/19 20:00 97.4 69 18 127/70 (89) 93 08/23/19 16:00 97.4 70 20 124/70 (88) 92 08/23/19 09:34 97 Nasal Cannula 2.0 28 08/23/19 09:34 96 20 97 Nasal Cannula 2.0 28 08/23/19 09:00 Nasal Cannula 2.0 08/23/19 08:10 144/72 08/23/19 07:44 97.7 74 20 144/72 (96) 93 Intake and Output 08/23/19 08/24/19 19:00 07:00 Intake Total 750 ml 200 ml Balance 750 ml 200 ml Intake Oral 750 ml 200 ml # Voids 4 2 # Bowel Movements 1 Height (Feet): 6 Height (Inches): 1.00 Weight (Pounds): 179 General Appearance: alert EENT: normal ENT inspection Neck: supple Cardiovascular: normal rate Respiratory/Chest: lungs clear Abdomen: normal bowel sounds, non tender, soft Extremities: non-tender Won Bright MD Aug 24, 2019 07:44
[2019-08-24 08:05] VITALS: BP 137/71
[2019-08-24] MEDS: Lactulose 10gm/15ml UDC ORAL SCH ×3 (08:26→17:29)
[2019-08-24] MEDS: Theophylline ER 100mg ORAL SCH ×2 (08:26→20:18)
[2019-08-24] MEDS: Aspirin Baby 81mg ORAL SCH (08:26)
[2019-08-24] MEDS: Sucralfate 1gm tab ORAL SCH ×3 (08:26→17:29)
[2019-08-24] MEDS: Sertraline 50mg tab ORAL SCH (08:27)
[2019-08-24] MEDS: Dronabinol 2.5mg Cap ORAL SCH ×3 (08:27→17:29)
[2019-08-24] MEDS: cloNIDine 0.2mg Tab ORAL SCH ×2 (08:29→20:18)
[2019-08-24] MEDS: Docusate 100mg cap ORAL SCH ×2 (08:33→17:29)
[2019-08-24] MEDS: Heparin 5000 units/ml inj SUBQ SCH ×2 (08:33→20:19)
[2019-08-24] MEDS: Furosemide 40mg tab ORAL SCH (08:34)
[2019-08-24 11:59] VITALS: BP 119/60
--- NOTE | 2019-08-24 12:19 | Pulmonology Progress Note ---
Assessment/Plan Problems: (1) Acute exacerbation of chronic obstructive airways disease (2) Acute bronchitis (3) Pulmonary nodule (4) Emphysema (5) Peripheral neuropathy (6) History of cocaine abuse (7) Chronic back pain (8) DJD (degenerative joint disease) Assessment/Plan no new complains med/surg slightly better EF: 60% respiratory treatment sputum, not collected yet stool for OB was negative dc planning in progress. Subjective ROS Limited/Unobtainable: No Constitutional: Reports: no symptoms HEENT: Repors: no symptoms Respiratory: Reports: no symptoms Allergies: Coded Allergies: No Known Allergies (Unverified , 08/14/19) Objective Last 24 Hour Vital Signs Date Time Temp Pulse Resp B/P (MAP) Pulse Ox O2 Delivery O2 Flow Rate FiO2 08/24/19 11:59 97.6 60 19 119/60 (79) 96 08/24/19 08:55 Nasal Cannula 2.0 08/24/19 08:29 113/71 08/24/19 08:05 97.6 77 20 137/71 (93) 96 08/24/19 02:22 77 20 95 Nasal Cannula 2.0 28 08/24/19 02:22 95 Nasal Cannula 2.0 28 08/24/19 00:31 97.9 72 17 113/71 (85) 93 08/23/19 23:00 Room Air 08/23/19 20:44 127/70 08/23/19 20:00 97.4 69 18 127/70 (89) 93 08/23/19 16:00 97.4 70 20 124/70 (88) 92 Intake and Output 08/23/19 08/24/19 19:00 07:00 Intake Total 750 ml 200 ml Balance 750 ml 200 ml Intake Oral 750 ml 200 ml # Voids 4 2 # Bowel Movements 1 Objective General Appearance: WN, WD, WH Lines, tubes and drains: peripheral HEENT: normocephalic, atraumatic Neck: non-tender, normal alignment Respiratory/Chest: chest wall non-tender, rhonchi - right, expiratory wheezing Breasts: no masses Cardiovascular/Chest: normal peripheral pulses Abdomen: normal bowel sounds, non tender, hyperactive bowel sounds Extremities: normal range of motion Current Medications Medications (Trade) Dose Ordered Sig/[place] Route PRN Reason Start Time Stop Time Status Last Admin Dose Admin Acetaminophen (Tylenol) 650 mg Q4H PRN ORAL Mild Pain/Temp > 100.5 08/21/19 16:08 09/13/19 16:07 08/21/19 22:35 Acetaminophen/ Hydrocodone Bitart ([place] 5/325) 1 tab TID PRN ORAL Moderate Pain (Pain Scale 4-6) 08/21/19 16:11 08/28/19 16:10 08/23/19 02:33 Albuterol/ Ipratropium (Albuterol/ Ipratropium) 3 ml Q4H PRN HHN Shortness of Breath 08/23/19 20:30 08/28/19 20:29 Aspirin (ASA) 81 mg DAILY ORAL 08/22/19 09:00 09/13/19 11:14 08/24/19 08:26 Clonidine HCl (Catapres tab) 0.2 mg Q12HR ORAL 08/21/19 21:00 09/16/19 20:59 08/24/19 08:29 Dextrose (Dextrose 50%) 25 ml Q30M PRN IV Hypoglycemia 08/21/19 16:08 09/13/19 16:07 Dextrose (Dextrose 50%) 50 ml Q30M PRN IV Hypoglycemia 08/21/19 16:09 09/13/19 16:08 Docusate Sodium (Colace) 100 mg TWICE A DAY ORAL 08/21/19 18:00 09/16/19 08:59 08/23/19 08:10 Dronabinol (Marinol) 2.5 mg TID ORAL 08/21/19 18:00 09/15/19 12:59 08/24/19 08:27 Furosemide (Lasix) 40 mg DAILY ORAL 08/22/19 09:00 09/21/19 08:59 Heparin Sodium (Porcine) (Heparin 5000 units/ml) 5,000 units EVERY 12 HOURS SUBQ 08/22/19 09:00 09/13/19 08:59 08/24/19 08:33 Lactulose (Cephulac) 10 gm THREE TIMES A DAY ORAL 08/21/19 18:00 09/17/19 08:59 08/24/19 08:26 Nitroglycerin (Ntg) 0.4 mg Q5M X 3 DOSES PRN SL Prn Chest Pain 08/21/19 16:00 09/13/19 06:44 Ondansetron HCl (Zofran) 4 mg Q6H PRN IVP Nausea & Vomiting 08/21/19 16:10 09/13/19 16:09 Pantoprazole (Protonix) 40 mg DAILY ORAL 08/23/19 09:00 09/22/19 08:59 08/24/19 08:26 Polyethylene Glycol (Miralax) 17 gm BEDTIME ORAL 08/21/19 21:00 09/17/19 20:59 Promethazine HCl/ Codeine (Phenergan with Codeine) 5 ml Q6H PRN ORAL cough 08/21/19 16:10 09/13/19 16:09 08/23/19 02:31 Sertraline HCl (Zoloft) 25 mg DAILY ORAL 08/22/19 09:00 09/15/19 08:59 08/24/19 08:27 Simethicone (Mylicon) 80 mg Q6H PRN ORAL Abdominal cramps 08/21/19 20:00 09/19/19 07:59 Sucralfate (Carafate) 1 gm TID ORAL 08/21/19 18:00 09/19/19 08:59 08/24/19 08:26 Theophylline (Rigoberto-Dur) 100 mg EVERY 12 HOURS ORAL 08/21/19 21:00 09/13/19 08:59 08/24/19 08:26 Farhan Ortega MD Aug 24, 2019 12:19
--- NOTE | 2019-08-24 12:25 | Cardiac Electrophysiology PN ---
Assessment/Plan Assessment/Plan 1. Severe bilateral lower extremity edema and shortness of breath. Likely due to CHF due to diastolic dysfunction, EF 60% BNP decreased from 2500 to 1700 . On Lasix 40 po daily 2. HTN. On Lasix 40 po daily and clonidine 0.2 mg bid. Refusing Lasix! 3. COPD on Rigoberto-Dur, Solu-Medrol and antibiotic. 4. Abdominal pain. Abd US was negative, FU GI DW RN. Refuses going to [facility] Wants to go back to street( lives in his car) Subjective Subjective Alert in NAD. Refused discharge yesterday. Refusing Lasix RN at bedside. Objective Last 24 Hour Vital Signs Date Time Temp Pulse Resp B/P (MAP) Pulse Ox O2 Delivery O2 Flow Rate FiO2 08/24/19 11:59 97.6 60 19 119/60 (79) 96 08/24/19 08:55 Nasal Cannula 2.0 08/24/19 08:29 113/71 08/24/19 08:05 97.6 77 20 137/71 (93) 96 08/24/19 02:22 77 20 95 Nasal Cannula 2.0 28 08/24/19 02:22 95 Nasal Cannula 2.0 28 08/24/19 00:31 97.9 72 17 113/71 (85) 93 08/23/19 23:00 Room Air 08/23/19 20:44 127/70 08/23/19 20:00 97.4 69 18 127/70 (89) 93 08/23/19 16:00 97.4 70 20 124/70 (88) 92 Intake and Output 08/23/19 08/24/19 19:00 07:00 Intake Total 750 ml 200 ml Balance 750 ml 200 ml Intake Oral 750 ml 200 ml # Voids 4 2 # Bowel Movements 1 Objective HEAD AND NECK: Showed no JVD. LUNGS: Decreased breath sounds with rhonchi. CARDIOVASCULAR: Regular S1 and S2 with no gallop. ABDOMEN: Soft. EXTREMITIES: Bilateral 2+ pitting edema Robbin Sinha MD Aug 24, 2019 12:25
--- NOTE | 2019-08-24 13:40 | CDS Physician Query ---
Clarification is required for compliance, coding accuracy, and to reflect severity of illness for this patient Dear Farhan Delarosa MD Date: 08/24/2019 [employer] Leader/CDS Name: Patrice Carter This is a 79-year-old male, who lives at home, presented with above-mentioned diagnosis, became short of breath, increasing over the last month despite treatment. The patient came to [facility] [place], diagnosed with the above, admitted to telemetry for further care. Currently, O2 NC, slight short of breath. . No complaint, otherwise. "Heart Failure / CHF" documented in Consultation notes EF:60% BNP: 2500 Tx: IV FUROSEMIDE Please Clarify: Acuity [x] Acute [] Chronic [] Acute on Chronic Type [] Systolic [x] Diastolic [] Systolic & Diastolic (Combined) [] Other: Present on Admission: [x] Yes [] No [] Clinically Undetermined Physician signature Date Please also document in your Progress Notes and/or Discharge Summary and indicate if the condition was present on admission. MTDD
--- NOTE | 2019-08-24 13:54 | General Progress Note ---
Assessment/Plan Problem List: (1) Emphysema ICD Codes: J43.9 - Emphysema SNOMED: 48332099 (2) History of CVA (cerebrovascular accident) ICD Codes: Z86.73 - History of stroke SNOMED: 126481856 Status: stable, progressing Assessment/Plan: pt sdiwt o2 pulm tx psyc cardio eval cbc bmp am dc to snf if clear Subjective Allergies: Coded Allergies: No Known Allergies (Unverified , 08/14/19) All Systems: reviewed and negative except above Subjective o2nc sleepy Objective Last 24 Hour Vital Signs Date Time Temp Pulse Resp B/P (MAP) Pulse Ox O2 Delivery O2 Flow Rate FiO2 08/24/19 11:59 97.6 60 19 119/60 (79) 96 08/24/19 08:55 Nasal Cannula 2.0 08/24/19 08:29 113/71 08/24/19 08:05 97.6 77 20 137/71 (93) 96 08/24/19 02:22 77 20 95 Nasal Cannula 2.0 28 08/24/19 02:22 95 Nasal Cannula 2.0 28 08/24/19 00:31 97.9 72 17 113/71 (85) 93 08/23/19 23:00 Room Air 08/23/19 20:44 127/70 08/23/19 20:00 97.4 69 18 127/70 (89) 93 08/23/19 16:00 97.4 70 20 124/70 (88) 92 Intake and Output 08/23/19 08/24/19 19:00 07:00 Intake Total 750 ml 200 ml Balance 750 ml 200 ml Intake Oral 750 ml 200 ml # Voids 4 2 # Bowel Movements 1 Height (Feet): 6 Height (Inches): 1.00 Weight (Pounds): 179 General Appearance: lethargic EENT: normal ENT inspection Neck: normal alignment Cardiovascular: normal peripheral pulses, normal rate, regular rhythm Respiratory/Chest: chest wall non-tender, lungs clear, normal breath sounds Abdomen: normal bowel sounds, non tender, soft Extremities: normal inspection Edema: no edema noted Arm (L), no edema noted Arm (R), no edema noted Leg (L), no edema noted Leg (R), no edema noted Pedal (L), no edema noted Pedal (R), no edema noted Generalized Neurologic: motor weakness Skin: normal pigmentation, warm/dry Fred Kay DO Aug 24, 2019 13:54
--- NOTE | 2019-08-24 14:24 | NUR ---
RD ASSESSMENT & RECOMMENDATIONS SEE CARE ACTIVITY FOR COMPLETE ASSESSMENT DAILY ESTIMATED NEEDS: Needs based on Liver, cardiac/ 82kg 25-30 kcals/kg 2695-1134 total kcals 1-1.3 g protein/kg 82-107 g total protein 20-25 mL/kg 3168-5644 total fluid mLs NUTRITION DIAGNOSIS: (1) Decreased sodium needs R/T cardiac hx, liver dysfunction as evidenced by h/o CHF w/ elev BNP (1729), on diuretics, h/o CVA, elev AST PO DIET RECOMMENDATIONS: Low Sodium/ texture as tolerated ADDITIONAL RECOMMENDATIONS: * Daily standing wt monitoring * Monitor lytes closely w/ Lasix, replete as needed * W/ variable Po intake at this time, monitor PO intake * K now elevated, monitor trend, need for dietary restriction
[2019-08-24] MEDS: Albuterol/Ipratropium 3ml neb HHN PRN (15:50)
[2019-08-24 15:55] VITALS: BP 119/66
--- NOTE | 2019-08-24 16:15 | Progress Note ---
DATE: 08/24/2019 SUBJECTIVE: This is a 79-year-old male patient who is confused, disorganized. He has altered mental status, decline in cognition below the baseline. He has increased depression worsened by stress of his medical illness. MENTAL STATUS EXAMINATION: This is a 79-year-old male. Appearance is disheveled. Attitude, irritable and agitated. Affect, guarded and restricted. Insight and judgment is poor. DIAGNOSIS: Major depressive disorder, mild, recurrent with psychotic features. PLAN: Continue treatment with medications to stabilize his mood. Provided him with 20 minutes of cognitive behavioral therapy to help him identify automatic negative thoughts and help him convert negative thoughts to more positive thoughts to reduce depression, anxiety, and mood lability. I encouraged him to interact appropriately with staff. Chart reviewed. Discussed with staff. Seen and assessed at bedside. He will continued to be followed by Psychiatry throughout hospital course. Misha Bird M.D. DR: ROHAN JOB#: [id number] CC:
--- NOTE | 2019-08-24 19:07 | NUR ---
HAND-OFF: Report given to Ms Medina RN, resting comfortably in bed, needs met and anticipated nathan wade.
--- NOTE | 2019-08-24 19:50 | NUR ---
NURSE NOTES: Received patient awake in bed, alert, oriented x4, no sign of distress, no c/o pain at this time. No IV access noted, MD aware, on fall precaution, patient wearing non slip socks, bed low and locked. Call light and personal belongings within reach.
[2019-08-24 20:00] VITALS: BP 120/65
[2019-08-24] MEDS: Miralax 17gm pkt ORAL SCH (21:00)
[2019-08-25 04:00] VITALS: BP 116/64
--- NOTE | 2019-08-25 07:30 | NUR ---
NURSE NOTES: Handoff received from NICKOLAS Haskins. Patient received alert and oriented and resting in bed, no acute signs of distress noted. Patient has no IV but MD is aware. patient is able to make needs known, bed in the low and locked position with call light within reach, will continue to monitor.
--- NOTE | 2019-08-25 07:31 | NUR ---
HAND-OFF: Report given to NICKOLAS Freire.
[2019-08-25 08:00] VITALS: BP 134/77
[2019-08-25] MEDS: Lactulose 10gm/15ml UDC ORAL SCH ×3 (09:00→17:15)
[2019-08-25] MEDS: Sertraline 50mg tab ORAL SCH (09:00)
[2019-08-25] MEDS: Docusate 100mg cap ORAL SCH ×2 (09:00→17:16)
[2019-08-25] MEDS: Furosemide 40mg tab ORAL SCH (09:00)
[2019-08-25] MEDS: Sucralfate 1gm tab ORAL SCH ×3 (09:10→17:09)
[2019-08-25] MEDS: cloNIDine 0.2mg Tab ORAL SCH ×2 (09:10→21:00)
[2019-08-25] MEDS: Dronabinol 2.5mg Cap ORAL SCH ×3 (09:10→17:09)
[2019-08-25] MEDS: Theophylline ER 100mg ORAL SCH ×2 (09:10→21:30)
[2019-08-25] MEDS: Aspirin Baby 81mg ORAL SCH (09:10)
[2019-08-25] MEDS: Heparin 5000 units/ml inj SUBQ SCH ×2 (09:12→21:00)
[2019-08-25] MEDS: Albuterol/Ipratropium 3ml neb HHN PRN (09:13)
--- NOTE | 2019-08-25 11:26 | Cardiac Electrophysiology PN ---
Assessment/Plan Assessment/Plan 1. Severe bilateral lower extremity edema and shortness of breath. Likely due to CHF due to diastolic dysfunction, EF 60% BNP decreased from 2500 to 1700 . 2. HTN. On clonidine 0.2 mg bid. Refusing Lasix! 3. COPD on Rigoberto-Dur, Solu-Medrol and antibiotic. 4. Abdominal pain. Abd US was negative, FU REBEL ESPINO RN. Refuses going to [facility] Wants to go back to street( lives in his car) Subjective Subjective Alert in NAD. Refusing Lasix Objective Last 24 Hour Vital Signs Date Time Temp Pulse Resp B/P (MAP) Pulse Ox O2 Delivery O2 Flow Rate FiO2 08/25/19 09:24 79 19 95 Nasal Cannula 2.0 28 08/25/19 09:23 95 Nasal Cannula 2.0 28 08/25/19 09:13 72 19 97 Nasal Cannula 2.0 28 68 18 95 08/25/19 09:10 134/77 08/25/19 09:00 Nasal Cannula 2.0 08/25/19 08:00 58 19 134/77 (96) 98 08/25/19 04:00 97.3 73 19 116/64 (81) 97 08/24/19 22:44 Room Air 08/24/19 20:18 119/66 08/24/19 20:08 95 Nasal Cannula 2.0 28 08/24/19 20:08 82 20 95 Nasal Cannula 2.0 28 08/24/19 20:00 97.9 70 20 120/65 (83) 97 08/24/19 15:55 97.3 74 20 119/66 (83) 97 08/24/19 15:50 69 20 99 Nasal Cannula 2.0 28 62 20 94 08/24/19 11:59 97.6 60 19 119/60 (79) 96 Intake and Output 08/24/19 08/25/19 19:00 07:00 Intake Total 1200 ml 250 ml Balance 1200 ml 250 ml Intake Oral 1200 ml 250 ml # Voids 2 Objective HEAD AND NECK: Showed no JVD. LUNGS: Decreased breath sounds with rhonchi. CARDIOVASCULAR: Regular S1 and S2 with no gallop. ABDOMEN: Soft. EXTREMITIES: Bilateral 2+ pitting edema Robbin Sinha MD Aug 25, 2019 11:26
--- NOTE | 2019-08-25 11:37 | GI Progress Note ---
Assessment/Plan Problems: (1) Constipation ICD Codes: K59.00 - Constipation, unspecified SNOMED: 70671114 (2) Fatty liver ICD Codes: K76.0 - Fatty (change of) liver, not elsewhere classified SNOMED: 569364682 Status: unchanged Status Narrative Discussed with Dr. Bright. Assessment/Plan Abdominal CT IMPRESSION: Fatty liver. Suggestion of mild fibrosis at the right lung base. Other interstitial opacities nonspecific. Calcified granulomata within the spleen Moderate atherosclerotic vascular disease. Tiny left inguinal hernia containing fat Mild diverticulosis of the colon. Sclerotic appearing femoral heads. Query AVN. Moderate degenerative changes of the spine with severe disease in the lower lumbar spine. OB stool negative stool culture negative cont bowel regime, patient had BM repeat labs neg stool ob refused EGD improving lfts fu cardiology The patient was seen and examined at bedside and all new and available data was reviewed in the patients chart. I agree with the above findings, impression and plan. (Patient seen earlier today. Signature stamp does not reflect patient encounter time.). - Won Bright MD Subjective Subjective had BM Objective Last 24 Hour Vital Signs Date Time Temp Pulse Resp B/P (MAP) Pulse Ox O2 Delivery O2 Flow Rate FiO2 08/25/19 09:24 79 19 95 Nasal Cannula 2.0 28 08/25/19 09:23 95 Nasal Cannula 2.0 28 08/25/19 09:13 72 19 97 Nasal Cannula 2.0 28 68 18 95 08/25/19 09:10 134/77 08/25/19 09:00 Nasal Cannula 2.0 08/25/19 08:00 58 19 134/77 (96) 98 08/25/19 04:00 97.3 73 19 116/64 (81) 97 08/24/19 22:44 Room Air 08/24/19 20:18 119/66 08/24/19 20:08 95 Nasal Cannula 2.0 28 08/24/19 20:08 82 20 95 Nasal Cannula 2.0 28 08/24/19 20:00 97.9 70 20 120/65 (83) 97 08/24/19 15:55 97.3 74 20 119/66 (83) 97 08/24/19 15:50 69 20 99 Nasal Cannula 2.0 28 62 20 94 08/24/19 11:59 97.6 60 19 119/60 (79) 96 Intake and Output 08/24/19 08/25/19 19:00 07:00 Intake Total 1200 ml 250 ml Balance 1200 ml 250 ml Intake Oral 1200 ml 250 ml # Voids 2 Height (Feet): 6 Height (Inches): 1.00 Weight (Pounds): 175 General Appearance: no apparent distress Cardiovascular: normal rate Respiratory/Chest: normal breath sounds, no respiratory distress Abdominal Exam: normal bowel sounds, non tender, soft Extremities: non-tender Sunita Mendoza FORMULA WEIGHER Aug 25, 2019 11:37
[2019-08-25 12:00] VITALS: BP 111/62
--- NOTE | 2019-08-25 13:57 | Pulmonology Progress Note ---
Assessment/Plan Problems: (1) Acute exacerbation of chronic obstructive airways disease (2) Acute bronchitis (3) Pulmonary nodule (4) Emphysema (5) Peripheral neuropathy (6) History of cocaine abuse (7) Chronic back pain (8) DJD (degenerative joint disease) Assessment/Plan no new complains med/surg slightly better EF: 60% respiratory treatment sputum, not collected yet stool for OB was negative dc planning in progress. pt lives in his car Subjective ROS Limited/Unobtainable: No Constitutional: Reports: no symptoms HEENT: Repors: no symptoms Respiratory: Reports: no symptoms Allergies: Coded Allergies: No Known Allergies (Unverified , 08/14/19) Objective Last 24 Hour Vital Signs Date Time Temp Pulse Resp B/P (MAP) Pulse Ox O2 Delivery O2 Flow Rate FiO2 08/25/19 12:00 98.2 74 19 111/62 (78) 98 08/25/19 09:24 79 19 95 Nasal Cannula 2.0 28 08/25/19 09:23 95 Nasal Cannula 2.0 28 08/25/19 09:13 72 19 97 Nasal Cannula 2.0 28 68 18 95 08/25/19 09:10 134/77 08/25/19 09:00 Nasal Cannula 2.0 08/25/19 08:00 58 19 134/77 (96) 98 08/25/19 04:00 97.3 73 19 116/64 (81) 97 08/24/19 22:44 Room Air 08/24/19 20:18 119/66 08/24/19 20:08 95 Nasal Cannula 2.0 28 08/24/19 20:08 82 20 95 Nasal Cannula 2.0 28 08/24/19 20:00 97.9 70 20 120/65 (83) 97 08/24/19 15:55 97.3 74 20 119/66 (83) 97 08/24/19 15:50 69 20 99 Nasal Cannula 2.0 28 62 20 94 Intake and Output 08/24/19 08/25/19 19:00 07:00 Intake Total 1200 ml 250 ml Balance 1200 ml 250 ml Intake Oral 1200 ml 250 ml # Voids 2 Objective General Appearance: WN, WD, WH Lines, tubes and drains: peripheral HEENT: normocephalic, atraumatic Neck: non-tender, normal alignment Respiratory/Chest: chest wall non-tender, rhonchi - right, expiratory wheezing Breasts: no masses Cardiovascular/Chest: normal peripheral pulses Abdomen: normal bowel sounds, non tender, hyperactive bowel sounds Extremities: normal range of motion Current Medications Medications (Trade) Dose Ordered Sig/[place] Route PRN Reason Start Time Stop Time Status Last Admin Dose Admin Acetaminophen (Tylenol) 650 mg Q4H PRN ORAL Mild Pain/Temp > 100.5 08/21/19 16:08 09/13/19 16:07 08/24/19 17:34 Acetaminophen/ Hydrocodone Bitart ([place] 5/325) 1 tab TID PRN ORAL Moderate Pain (Pain Scale 4-6) 08/21/19 16:11 08/28/19 16:10 08/23/19 02:33 Albuterol/ Ipratropium (Albuterol/ Ipratropium) 3 ml Q4H PRN HHN Shortness of Breath 08/23/19 20:30 08/28/19 20:29 08/25/19 09:13 Aspirin (ASA) 81 mg DAILY ORAL 08/22/19 09:00 09/13/19 11:14 08/25/19 09:10 Clonidine HCl (Catapres tab) 0.2 mg Q12HR ORAL 08/21/19 21:00 09/16/19 20:59 08/25/19 09:10 Dextrose (Dextrose 50%) 25 ml Q30M PRN IV Hypoglycemia 08/21/19 16:08 09/13/19 16:07 Dextrose (Dextrose 50%) 50 ml Q30M PRN IV Hypoglycemia 08/21/19 16:09 09/13/19 16:08 Docusate Sodium (Colace) 100 mg TWICE A DAY ORAL 08/21/19 18:00 09/16/19 08:59 08/23/19 08:10 Dronabinol (Marinol) 2.5 mg TID ORAL 08/21/19 18:00 09/15/19 12:59 08/25/19 13:07 Heparin Sodium (Porcine) (Heparin 5000 units/ml) 5,000 units EVERY 12 HOURS SUBQ 08/22/19 09:00 09/13/19 08:59 08/25/19 09:12 Lactulose (Cephulac) 10 gm THREE TIMES A DAY ORAL 08/21/19 18:00 09/17/19 08:59 08/24/19 17:29 Nitroglycerin (Ntg) 0.4 mg Q5M X 3 DOSES PRN SL Prn Chest Pain 08/21/19 16:00 09/13/19 06:44 Ondansetron HCl (Zofran) 4 mg Q6H PRN IVP Nausea & Vomiting 08/21/19 16:10 09/13/19 16:09 Pantoprazole (Protonix) 40 mg DAILY ORAL 08/23/19 09:00 09/22/19 08:59 08/25/19 09:10 Polyethylene Glycol (Miralax) 17 gm BEDTIME ORAL 08/21/19 21:00 09/17/19 20:59 Promethazine HCl/ Codeine (Phenergan with Codeine) 5 ml Q6H PRN ORAL cough 08/21/19 16:10 09/13/19 16:09 08/23/19 02:31 Sertraline HCl (Zoloft) 25 mg DAILY ORAL 08/22/19 09:00 09/15/19 08:59 08/24/19 08:27 Simethicone (Mylicon) 80 mg Q6H PRN ORAL Abdominal cramps 08/21/19 20:00 09/19/19 07:59 Sucralfate (Carafate) 1 gm TID ORAL 08/21/19 18:00 09/19/19 08:59 08/25/19 13:05 Theophylline (Rigoberto-Dur) 100 mg EVERY 12 HOURS ORAL 08/21/19 21:00 09/13/19 08:59 08/25/19 09:10 Farhan Ortega MD Aug 25, 2019 13:57
--- NOTE | 2019-08-25 14:20 | General Progress Note ---
Assessment/Plan Problem List: (1) Emphysema ICD Codes: J43.9 - Emphysema SNOMED: 55207850 (2) History of CVA (cerebrovascular accident) ICD Codes: Z86.73 - History of stroke SNOMED: 444282534 Status: stable, progressing Assessment/Plan: pt sdiwt o2 pulm tx psyc cardio eval cbc bmp am dc to snf if clear Subjective Constitutional: Reports: weakness Allergies: Coded Allergies: No Known Allergies (Unverified , 08/14/19) All Systems: reviewed and negative except above Subjective o2nc sleepy Objective Last 24 Hour Vital Signs Date Time Temp Pulse Resp B/P (MAP) Pulse Ox O2 Delivery O2 Flow Rate FiO2 08/25/19 12:00 98.2 74 19 111/62 (78) 98 08/25/19 09:24 79 19 95 Nasal Cannula 2.0 28 08/25/19 09:23 95 Nasal Cannula 2.0 28 08/25/19 09:13 72 19 97 Nasal Cannula 2.0 28 68 18 95 08/25/19 09:10 134/77 08/25/19 09:00 Nasal Cannula 2.0 08/25/19 08:00 58 19 134/77 (96) 98 08/25/19 04:00 97.3 73 19 116/64 (81) 97 08/24/19 22:44 Room Air 08/24/19 20:18 119/66 08/24/19 20:08 95 Nasal Cannula 2.0 28 08/24/19 20:08 82 20 95 Nasal Cannula 2.0 28 08/24/19 20:00 97.9 70 20 120/65 (83) 97 08/24/19 15:55 97.3 74 20 119/66 (83) 97 08/24/19 15:50 69 20 99 Nasal Cannula 2.0 28 62 20 94 Intake and Output 08/24/19 08/25/19 19:00 07:00 Intake Total 1200 ml 250 ml Balance 1200 ml 250 ml Intake Oral 1200 ml 250 ml # Voids 2 Height (Feet): 6 Height (Inches): 1.00 Weight (Pounds): 175 General Appearance: lethargic EENT: normal ENT inspection Neck: normal alignment Cardiovascular: normal peripheral pulses, normal rate, regular rhythm Respiratory/Chest: chest wall non-tender, lungs clear, normal breath sounds Abdomen: normal bowel sounds, non tender, soft Extremities: normal inspection Edema: no edema noted Arm (L), no edema noted Arm (R), no edema noted Leg (L), no edema noted Leg (R), no edema noted Pedal (L), no edema noted Pedal (R), no edema noted Generalized Neurologic: responsive, motor weakness Skin: normal pigmentation, warm/dry Fred Kay DO Aug 25, 2019 14:20
--- NOTE | 2019-08-25 15:45 | Progress Note ---
DATE: 08/25/2019 SUBJECTIVE: This is a 79-year-old male patient who still has some depression, confusion, mood lability, psychomotor agitation, irritability. Staff declined cognition below his baseline. That is why, his attending has requested daily psychiatric consultation. DIAGNOSIS: 1. Major depressive disorder, mild, recurrent with psychotic features. 2. Rule out dementia with psychosis. PLAN: Treat with Zoloft 25 mg daily. A 20 minutes of reality-based supportive psychotherapy and 20 minutes of cognitive behavioral therapy to help him identify his automatic negative thoughts and help him convert those negative thoughts to more positive thoughts to reduce depression, anxiety, mood lability. Chart reviewed. Discussed with staff. Seen and assessed in his room. Misha Bird M.D. DR: CORINE JOB#: [id number] CC:
[2019-08-25 16:00] VITALS: BP 101/51
--- NOTE | 2019-08-25 19:54 | NUR ---
HAND-OFF: Report given to Victoriano, plan of care endorsed.
[2019-08-25 20:00] VITALS: BP 105/58
--- NOTE | 2019-08-25 20:45 | NUR ---
NURSE NOTES: Patient is awake, alert and verbally responsive. Able to make needs known. Respiration is even and unlabored. No complaint of pain or discomfort noted. No iv site noted. Skin is warm and dry to touch. Abdomen is soft. call light is at bedside. Will continue plan of care.
[2019-08-25] MEDS: Miralax 17gm pkt ORAL SCH (21:00)
--- NOTE | 2019-08-26 00:46 | NUR ---
NURSE NOTES: Patient refused vital signs. NO s/s of distress noted. Will continue plan of care.
[2019-08-26 04:00] VITALS: BP 127/59
--- NOTE | 2019-08-26 05:35 | NUR ---
NURSE NOTES: Patient refused blood draw. Educated patient regarding, still refused. Will reassess patient. patient is awake, alert x 4. will continue to monitor patient.
--- NOTE | 2019-08-26 07:23 | NUR ---
HAND-OFF: Report given to Moran Rn.
--- NOTE | 2019-08-26 07:24 | NUR ---
NURSE NOTES: Received patient in bed asleep. No SOB or acute distress. HOB elevated. Bed locked in lowest position. Call light within reach. Will continue plan of care.
[2019-08-26 08:00] VITALS: BP 123/72
--- NOTE | 2019-08-26 09:38 | General Progress Note ---
Assessment/Plan Problem List: (1) Fatty liver ICD Codes: K76.0 - Fatty (change of) liver, not elsewhere classified SNOMED: 226256427 (2) CHF (congestive heart failure) ICD Codes: I50.9 - Heart failure, unspecified SNOMED: 90498514 (3) Emphysema ICD Codes: J43.9 - Emphysema SNOMED: 54363412 (4) Tobacco dependence ICD Codes: F17.200 - Nicotine dependence, unspecified, uncomplicated SNOMED: 76246729 (5) DJD (degenerative joint disease) ICD Codes: M19.90 - Unspecified osteoarthritis, unspecified site SNOMED: 383240651 (6) Elevated LFTs ICD Codes: R94.5 - Abnormal results of liver function studies SNOMED: 697790717, 159646950 (7) Diverticulosis ICD Codes: K57.90 - Diverticulosis of intestine, part unspecified, without perforation or abscess without bleeding SNOMED: 349699406 (8) Constipation ICD Codes: K59.00 - Constipation, unspecified SNOMED: 47348210 Status: stable, progressing Assessment/Plan: (1) Constipation ICD Codes: K59.00 - Constipation, unspecified SNOMED: 23735990 (2) Fatty liver ICD Codes: K76.0 - Fatty (change of) liver, not elsewhere classified SNOMED: 978320928 Status: unchanged Status Narrative Discussed with Dr. Bright. Assessment/Plan Abdominal CT IMPRESSION: Fatty liver. Suggestion of mild fibrosis at the right lung base. Other interstitial opacities nonspecific. Calcified granulomata within the spleen Moderate atherosclerotic vascular disease. Tiny left inguinal hernia containing fat Mild diverticulosis of the colon. Sclerotic appearing femoral heads. Query AVN. Moderate degenerative changes of the spine with severe disease in the lower lumbar spine. OB stool negative stool culture negative cont bowel regime, patient had BM repeat labs neg stool ob refused EGD improving lfts fu cardiology Subjective ROS Limited/Unobtainable: Yes Allergies: Coded Allergies: No Known Allergies (Unverified , 08/14/19) Subjective c/o abd pain had BM no bleeding Objective Last 24 Hour Vital Signs Date Time Temp Pulse Resp B/P (MAP) Pulse Ox O2 Delivery O2 Flow Rate FiO2 08/26/19 08:04 77 20 95 Nasal Cannula 2.0 28 08/26/19 08:04 95 Nasal Cannula 2.0 28 08/26/19 08:00 97.4 63 18 123/72 (89) 100 08/26/19 04:00 98.6 73 18 127/59 (81) 96 08/25/19 21:00 105/58 08/25/19 21:00 Room Air 08/25/19 20:00 98.0 67 18 105/58 (74) 100 08/25/19 16:00 98.6 60 17 101/51 (68) 100 08/25/19 12:00 98.2 74 19 111/62 (78) 98 Intake and Output 08/25/19 08/26/19 19:00 07:00 Intake Total 450 ml 1000 ml Balance 450 ml 1000 ml Intake Oral 450 ml 1000 ml # Voids 2 3 # Bowel Movements 1 Height (Feet): 6 Height (Inches): 1.00 Weight (Pounds): 175 General Appearance: alert EENT: normal ENT inspection Neck: supple Cardiovascular: normal rate Respiratory/Chest: lungs clear Abdomen: normal bowel sounds, non tender, soft Extremities: non-tender Won Bright MD Aug 26, 2019 09:37
[2019-08-26] MEDS: Dronabinol 2.5mg Cap ORAL SCH ×3 (09:48→18:37)
[2019-08-26] MEDS: Sucralfate 1gm tab ORAL SCH ×3 (09:48→18:37)
[2019-08-26] MEDS: Aspirin Baby 81mg ORAL SCH (09:48)
[2019-08-26] MEDS: Theophylline ER 100mg ORAL SCH ×2 (09:49→20:44)
[2019-08-26] MEDS: cloNIDine 0.2mg Tab ORAL SCH ×2 (09:49→20:44)
[2019-08-26] MEDS: Sertraline 50mg tab ORAL SCH (09:49)
[2019-08-26] MEDS: Docusate 100mg cap ORAL SCH ×2 (09:49→18:37)
[2019-08-26] MEDS: Lactulose 10gm/15ml UDC ORAL SCH ×3 (09:50→18:37)
[2019-08-26] MEDS: Heparin 5000 units/ml inj SUBQ SCH ×2 (09:51→20:45)
--- NOTE | 2019-08-26 10:30 | NUR ---
NURSE NOTES: Patient seen ambulating without assistance, seen with steady gait. Requesting to be seen by MD, refused to say why. Dr Kay aware but unable to come today. Dr Kay said he is for discharge to [facility], still awaiting room. Patient refuses to be discharged and only wants to talk to MD and not RN. Dr Ortega seen patient, no new orders made.
--- NOTE | 2019-08-26 11:44 | NUR ---
*-*DISCHARGE PLANNING*-* PATIENT HAS BEEN REFERRED TO: [facility] P: [phone] F: [phone] *-* CLINICALS FAXED*-*
[2019-08-26 12:00] VITALS: BP 130/70
--- NOTE | 2019-08-26 13:22 | NUR ---
*-* CASE MANAGEMENT NOTES *-* CM HAS APPEALED PATIENT DISCHARGE ON BEHALF OF THE PATIENT. CASE # [id number] S/W BABITA
--- NOTE | 2019-08-26 14:51 | Pulmonology Progress Note ---
Assessment/Plan Problems: (1) Acute exacerbation of chronic obstructive airways disease (2) Acute bronchitis (3) Pulmonary nodule (4) Emphysema (5) Peripheral neuropathy (6) History of cocaine abuse (7) Chronic back pain (8) DJD (degenerative joint disease) Assessment/Plan not feeling well, more depressed no new complains med/surg slightly better EF: 60% respiratory treatment sputum, not collected yet stool for OB was negative dc planning in progress. pt lives in his car Subjective ROS Limited/Unobtainable: No Constitutional: Reports: no symptoms HEENT: Repors: no symptoms Respiratory: Reports: no symptoms Allergies: Coded Allergies: No Known Allergies (Unverified , 08/14/19) Objective Last 24 Hour Vital Signs Date Time Temp Pulse Resp B/P (MAP) Pulse Ox O2 Delivery O2 Flow Rate FiO2 08/26/19 12:00 97.8 63 19 130/70 (90) 99 08/26/19 09:49 123/72 08/26/19 09:00 Room Air 08/26/19 08:04 77 20 95 Nasal Cannula 2.0 28 08/26/19 08:04 95 Nasal Cannula 2.0 28 08/26/19 08:00 97.4 63 18 123/72 (89) 100 08/26/19 04:00 98.6 73 18 127/59 (81) 96 08/25/19 21:00 105/58 08/25/19 21:00 Room Air 08/25/19 20:00 98.0 67 18 105/58 (74) 100 08/25/19 16:00 98.6 60 17 101/51 (68) 100 Intake and Output 08/25/19 08/26/19 19:00 07:00 Intake Total 450 ml 1000 ml Balance 450 ml 1000 ml Intake Oral 450 ml 1000 ml # Voids 2 3 # Bowel Movements 1 Objective General Appearance: WN, WD, WH Lines, tubes and drains: peripheral HEENT: normocephalic, atraumatic Neck: non-tender, normal alignment Respiratory/Chest: chest wall non-tender, rhonchi - right, expiratory wheezing Breasts: no masses Cardiovascular/Chest: normal peripheral pulses Abdomen: normal bowel sounds, non tender, hyperactive bowel sounds Extremities: normal range of motion Current Medications Medications (Trade) Dose Ordered Sig/[place] Route PRN Reason Start Time Stop Time Status Last Admin Dose Admin Acetaminophen (Tylenol) 650 mg Q4H PRN ORAL Mild Pain/Temp > 100.5 08/21/19 16:08 09/13/19 16:07 08/24/19 17:34 Acetaminophen/ Hydrocodone Bitart ([place] 5/325) 1 tab TID PRN ORAL Moderate Pain (Pain Scale 4-6) 08/21/19 16:11 08/28/19 16:10 08/23/19 02:33 Albuterol/ Ipratropium (Albuterol/ Ipratropium) 3 ml Q4H PRN HHN Shortness of Breath 08/23/19 20:30 08/28/19 20:29 08/25/19 09:13 Aspirin (ASA) 81 mg DAILY ORAL 08/22/19 09:00 09/13/19 11:14 08/26/19 09:48 Clonidine HCl (Catapres tab) 0.2 mg Q12HR ORAL 08/21/19 21:00 09/16/19 20:59 08/26/19 09:49 Dextrose (Dextrose 50%) 25 ml Q30M PRN IV Hypoglycemia 08/21/19 16:08 09/13/19 16:07 Dextrose (Dextrose 50%) 50 ml Q30M PRN IV Hypoglycemia 08/21/19 16:09 09/13/19 16:08 Docusate Sodium (Colace) 100 mg TWICE A DAY ORAL 08/21/19 18:00 09/16/19 08:59 08/26/19 09:49 Dronabinol (Marinol) 2.5 mg TID ORAL 08/21/19 18:00 09/15/19 12:59 08/26/19 12:12 Heparin Sodium (Porcine) (Heparin 5000 units/ml) 5,000 units EVERY 12 HOURS SUBQ 08/22/19 09:00 09/13/19 08:59 08/26/19 09:51 Lactulose (Cephulac) 10 gm THREE TIMES A DAY ORAL 08/21/19 18:00 09/17/19 08:59 08/26/19 12:12 Nitroglycerin (Ntg) 0.4 mg Q5M X 3 DOSES PRN SL Prn Chest Pain 08/21/19 16:00 09/13/19 06:44 Ondansetron HCl (Zofran) 4 mg Q6H PRN IVP Nausea & Vomiting 08/21/19 16:10 09/13/19 16:09 Pantoprazole (Protonix) 40 mg DAILY ORAL 08/23/19 09:00 09/22/19 08:59 08/26/19 09:49 Polyethylene Glycol (Miralax) 17 gm BEDTIME ORAL 08/21/19 21:00 09/17/19 20:59 Promethazine HCl/ Codeine (Phenergan with Codeine) 5 ml Q6H PRN ORAL cough 08/21/19 16:10 09/13/19 16:09 08/23/19 02:31 Sertraline HCl (Zoloft) 25 mg DAILY ORAL 08/22/19 09:00 09/15/19 08:59 08/26/19 09:49 Simethicone (Mylicon) 80 mg Q6H PRN ORAL Abdominal cramps 08/21/19 20:00 09/19/19 07:59 Sucralfate (Carafate) 1 gm TID ORAL 08/21/19 18:00 09/19/19 08:59 08/26/19 12:12 Theophylline (Rigoberto-Dur) 100 mg EVERY 12 HOURS ORAL 08/21/19 21:00 09/13/19 08:59 08/26/19 09:49 Farhan Ortega MD Aug 26, 2019 14:51
--- NOTE | 2019-08-26 15:15 | Progress Note ---
DATE: 08/26/2019 SUBJECTIVE: This is a 79-year-old male patient with COPD. The patient has confusion, disorganized thought process, altered mental status, decline in cognition below his baseline, and extreme mood lability. That is why he does require inpatient treatment at this time for increased depression, altered mental status, and confusion. MENTAL STATUS EXAMINATION: This is a 79-year-old male. Appearance is disheveled. Attitude, irritable and agitated. Affect, guarded and restricted. Intellect, poor. Mood, depressed and anxious. Motor activity, psychomotor agitation. Attention span is poor. Orientation x2. Speech is low volume and slurred. Thought process, disorganized and illogical. Insight and judgment is poor. DIAGNOSIS: Major depressive disorder, mild, recurrent, with psychotic features. PLAN: We will continue treatment with Zoloft 25 mg a day. Provided him with 20 minutes of cognitive behavioral therapy to help him identify his automatic negative thoughts and help convert his negative thoughts to more positive thoughts to reduce depression, anxiety, and mood lability. Chart reviewed. Discussed with staff. Seen and assessed at bedside. Misha Bird M.D. DR: TRANG JOB#: [id number] CC:
[2019-08-26 16:00] VITALS: BP 112/62
--- NOTE | 2019-08-26 16:17 | NUR ---
CASE MANAGEMENT:REVIEW 08/25/2019 SI;EMPHYSEMA 98.6 58 19 101/51 95% 2L NC FIO2 @ 28% NO LABS THIS DATE IS;DUO NEB HHN Q4 HR PRN PROTONIX PO QD HEPARIN SUBQ Q12 HRS TYREE-DUR PO Q12 HRS MARINOL PO TID LACTULOSE PO TID MED SURG STATUS DCP;SNF PLACEMENT
--- NOTE | 2019-08-26 17:03 | Cardiac Electrophysiology PN ---
Assessment/Plan Assessment/Plan 1. Severe bilateral lower extremity edema and shortness of breath. Likely due to CHF due to diastolic dysfunction, EF 60% BNP decreased from 2500 to 1700 . Improved 2. HTN. On clonidine 0.2 mg bid. Refusing Lasix! 3. COPD on Rigoberto-Dur, Solu-Medrol and antibiotic. 4. Abdominal pain. Abd US was negative, FU GI 5. Psych issue. FU Dr Pelon ESPINO RN. Refuses going to [facility] Wants to go back to street( lives in his car) Subjective Subjective Alert in NAD. Refusing Lasix. Being FU by Psych Objective Last 24 Hour Vital Signs Date Time Temp Pulse Resp B/P (MAP) Pulse Ox O2 Delivery O2 Flow Rate FiO2 08/26/19 12:00 97.8 63 19 130/70 (90) 99 08/26/19 09:49 123/72 08/26/19 09:00 Room Air 08/26/19 08:04 77 20 95 Nasal Cannula 2.0 28 08/26/19 08:04 95 Nasal Cannula 2.0 28 08/26/19 08:00 97.4 63 18 123/72 (89) 100 08/26/19 04:00 98.6 73 18 127/59 (81) 96 08/25/19 21:00 105/58 08/25/19 21:00 Room Air 08/25/19 20:00 98.0 67 18 105/58 (74) 100 Intake and Output 08/25/19 08/26/19 19:00 07:00 Intake Total 450 ml 1000 ml Balance 450 ml 1000 ml Intake Oral 450 ml 1000 ml # Voids 2 3 # Bowel Movements 1 Objective HEAD AND NECK: Showed no JVD. LUNGS: Decreased breath sounds with rhonchi. CARDIOVASCULAR: Regular S1 and S2 with no gallop. ABDOMEN: Soft. EXTREMITIES: Bilateral 2+ pitting edema Robbin Sinha MD Aug 26, 2019 17:03
--- NOTE | 2019-08-26 19:31 | NUR ---
HAND-OFF: Report given to
--- NOTE | 2019-08-26 19:32 | NUR ---
NURSE NOTES: Patient in bed, awake, alert and verbally responsive. Able to make needs known. Respiration. is even and unlabored. No complaint of pain or discomfort noted. NO iv noted. SKin is warm and dry. Bed in low and locked position. provided safe environment. Call light is at bedside. Will continue plan of care.
[2019-08-26 20:00] VITALS: BP 119/65
[2019-08-26] MEDS: Miralax 17gm pkt ORAL SCH (20:44)
--- NOTE | 2019-08-26 21:13 | General Progress Note ---
Assessment/Plan Problem List: (1) DJD (degenerative joint disease) ICD Codes: M19.90 - Unspecified osteoarthritis, unspecified site SNOMED: 060510511 (2) Bacteremia ICD Codes: R78.81 - Bacteremia SNOMED: 6163629 (3) Acute bronchitis ICD Codes: J20.9 - Acute bronchitis, unspecified SNOMED: 52877182 (4) Peripheral edema ICD Codes: R60.9 - Peripheral edema SNOMED: 471600607 (5) Chronic back pain ICD Codes: G89.29 - Other chronic pain; M54.9 - Chronic back pain SNOMED: 325024416 (6) Acute exacerbation of chronic obstructive airways disease ICD Codes: J44.1 - Acute exacerbation of chronic obstructive airways disease SNOMED: 430446824 (7) Diverticulosis ICD Codes: K57.90 - Diverticulosis of intestine, part unspecified, without perforation or abscess without bleeding SNOMED: 968282606 (8) CHF (congestive heart failure) ICD Codes: I50.9 - Heart failure, unspecified SNOMED: 02040375 (9) Constipation ICD Codes: K59.00 - Constipation, unspecified SNOMED: 42375865 Status: stable, progressing Assessment/Plan: afebrile edema chf resp insuff reviewed chart and labs Subjective ROS Limited/Unobtainable: Yes Allergies: Coded Allergies: No Known Allergies (Unverified , 08/14/19) Objective Last 24 Hour Vital Signs Date Time Temp Pulse Resp B/P (MAP) Pulse Ox O2 Delivery O2 Flow Rate FiO2 08/26/19 20:44 119/65 08/26/19 20:03 95 Nasal Cannula 2.0 28 08/26/19 20:02 80 20 95 Nasal Cannula 2.0 28 08/26/19 20:00 97.3 64 16 119/65 (83) 99 08/26/19 16:00 98.4 64 18 112/62 (79) 98 08/26/19 12:00 97.8 63 19 130/70 (90) 99 08/26/19 09:49 123/72 08/26/19 09:00 Room Air 08/26/19 08:04 77 20 95 Nasal Cannula 2.0 28 08/26/19 08:04 95 Nasal Cannula 2.0 28 08/26/19 08:00 97.4 63 18 123/72 (89) 100 08/26/19 04:00 98.6 73 18 127/59 (81) 96 Intake and Output 08/25/19 08/26/19 19:00 07:00 Intake Total 450 ml 1000 ml Balance 450 ml 1000 ml Intake Oral 450 ml 1000 ml # Voids 2 3 # Bowel Movements 1 Height (Feet): 6 Height (Inches): 1.00 Weight (Pounds): 175 Cardiovascular: normal rate Respiratory/Chest: lungs clear Abdomen: soft Dorothy Watts MD Aug 26, 2019 21:13
[2019-08-27] VITALS: BP 104/51
[2019-08-27 04:00] VITALS: BP 126/67
--- NOTE | 2019-08-27 06:54 | NUR ---
HAND-OFF: Report given to Rodriguez RN.
--- NOTE | 2019-08-27 07:00 | NUR ---
NURSE NOTES: Received patient in bed awake. With O2 via NC in place. No SOB or acute distress. HOB elevated. Bed locked in lowest position. Call light within reach. Will continue plan of care.
[2019-08-27 08:00] VITALS: BP 121/65
--- NOTE | 2019-08-27 08:44 | General Progress Note ---
Assessment/Plan Problem List: (1) Fatty liver ICD Codes: K76.0 - Fatty (change of) liver, not elsewhere classified SNOMED: 832610249 (2) CHF (congestive heart failure) ICD Codes: I50.9 - Heart failure, unspecified SNOMED: 20799436 (3) Emphysema ICD Codes: J43.9 - Emphysema SNOMED: 64982257 (4) Tobacco dependence ICD Codes: F17.200 - Nicotine dependence, unspecified, uncomplicated SNOMED: 07670511 (5) DJD (degenerative joint disease) ICD Codes: M19.90 - Unspecified osteoarthritis, unspecified site SNOMED: 175795706 (6) Elevated LFTs ICD Codes: R94.5 - Abnormal results of liver function studies SNOMED: 890781805, 018083095 (7) Diverticulosis ICD Codes: K57.90 - Diverticulosis of intestine, part unspecified, without perforation or abscess without bleeding SNOMED: 963803361 (8) Constipation ICD Codes: K59.00 - Constipation, unspecified SNOMED: 82658416 Status: stable, progressing Assessment/Plan: (1) Constipation ICD Codes: K59.00 - Constipation, unspecified SNOMED: 17254563 (2) Fatty liver ICD Codes: K76.0 - Fatty (change of) liver, not elsewhere classified SNOMED: 389982859 Status: unchanged Status Narrative Discussed with Dr. Bright. Assessment/Plan Abdominal CT IMPRESSION: Fatty liver. Suggestion of mild fibrosis at the right lung base. Other interstitial opacities nonspecific. Calcified granulomata within the spleen Moderate atherosclerotic vascular disease. Tiny left inguinal hernia containing fat Mild diverticulosis of the colon. Sclerotic appearing femoral heads. Query AVN. Moderate degenerative changes of the spine with severe disease in the lower lumbar spine. OB stool negative stool culture negative repeat labs neg stool ob refused EGD improving lfts fu cardiology Subjective ROS Limited/Unobtainable: No Allergies: Coded Allergies: No Known Allergies (Unverified , 08/14/19) Subjective c/o abd pain had BM no bleeding Objective Last 24 Hour Vital Signs Date Time Temp Pulse Resp B/P (MAP) Pulse Ox O2 Delivery O2 Flow Rate FiO2 08/27/19 04:00 98.1 63 16 126/67 (86) 99 08/27/19 00:00 98.3 63 18 104/51 (68) 100 08/26/19 21:00 Room Air 08/26/19 20:44 119/65 08/26/19 20:03 95 Nasal Cannula 2.0 28 08/26/19 20:02 80 20 95 Nasal Cannula 2.0 28 08/26/19 20:00 97.3 64 16 119/65 (83) 99 08/26/19 16:00 98.4 64 18 112/62 (79) 98 08/26/19 12:00 97.8 63 19 130/70 (90) 99 08/26/19 09:49 123/72 08/26/19 09:00 Room Air Intake and Output 08/26/19 08/27/19 19:00 07:00 Intake Total 800 ml Balance 800 ml Other 800 ml # Voids 1 Height (Feet): 6 Height (Inches): 1.00 Weight (Pounds): 175 General Appearance: alert EENT: normal ENT inspection Neck: supple Cardiovascular: normal rate Abdomen: normal bowel sounds, non tender, soft Extremities: non-tender Won Bright MD Aug 27, 2019 08:44
[2019-08-27] MEDS: Aspirin Baby 81mg ORAL SCH (09:12)
[2019-08-27] MEDS: Lactulose 10gm/15ml UDC ORAL SCH ×3 (09:12→18:04)
[2019-08-27] MEDS: Sucralfate 1gm tab ORAL SCH ×3 (09:12→18:04)
[2019-08-27] MEDS: Docusate 100mg cap ORAL SCH ×2 (09:12→18:04)
[2019-08-27] MEDS: Theophylline ER 100mg ORAL SCH ×2 (09:12→22:49)
[2019-08-27] MEDS: Sertraline 50mg tab ORAL SCH (09:13)
[2019-08-27] MEDS: cloNIDine 0.2mg Tab ORAL SCH ×2 (09:13→21:00)
[2019-08-27] MEDS: Dronabinol 2.5mg Cap ORAL SCH ×3 (09:13→18:04)
[2019-08-27] MEDS: Heparin 5000 units/ml inj SUBQ SCH ×2 (09:15→22:56)
--- NOTE | 2019-08-27 10:46 | Cardiac Electrophysiology PN ---
Assessment/Plan Assessment/Plan 1. Bilateral lower extremity edema and shortness of breath. Likely due to CHF due to diastolic dysfunction, EF 60% BNP decreased from 2500 to 1700 . Improved. Refusing Lasix! 2. HTN. On clonidine 0.2 mg bid. 3. COPD on Rigoberto-Dur, Solu-Medrol and antibiotic. 4. Abdominal pain. Abd US was negative, FU GI 5. Psych issue. FU Dr Pelon ESPINO RN. Refuses going to [facility] Wants to go back to street( lives in his car) Subjective Subjective Alert in NAD. Being FU by Psych. DC planning Objective Last 24 Hour Vital Signs Date Time Temp Pulse Resp B/P (MAP) Pulse Ox O2 Delivery O2 Flow Rate FiO2 08/27/19 09:13 121/65 08/27/19 08:00 98.5 69 18 121/65 (83) 98 08/27/19 04:00 98.1 63 16 126/67 (86) 99 08/27/19 00:00 98.3 63 18 104/51 (68) 100 08/26/19 21:00 Room Air 08/26/19 20:44 119/65 08/26/19 20:03 95 Nasal Cannula 2.0 28 08/26/19 20:02 80 20 95 Nasal Cannula 2.0 28 08/26/19 20:00 97.3 64 16 119/65 (83) 99 08/26/19 16:00 98.4 64 18 112/62 (79) 98 08/26/19 12:00 97.8 63 19 130/70 (90) 99 Intake and Output 08/26/19 08/27/19 19:00 07:00 Intake Total 800 ml Balance 800 ml Other 800 ml # Voids 1 Objective HEAD AND NECK: Showed no JVD. LUNGS: Decreased breath sounds with rhonchi. CARDIOVASCULAR: Regular S1 and S2 with no gallop. ABDOMEN: Soft. EXTREMITIES: Bilateral 2+ pitting edema Robbin Sinha MD Aug 27, 2019 10:46
[2019-08-27 12:00] VITALS: BP 127/73
--- NOTE | 2019-08-27 12:48 | Pulmonology Progress Note ---
Assessment/Plan Problems: (1) Acute exacerbation of chronic obstructive airways disease (2) Acute bronchitis (3) Pulmonary nodule (4) Emphysema (5) Peripheral neuropathy (6) History of cocaine abuse (7) Chronic back pain (8) DJD (degenerative joint disease) Assessment/Plan doing better no new complains med/surg slightly better EF: 60% respiratory treatment sputum, not collected yet stool for OB was negative dc planning in progress. pt lives in his car, pt appealed the discharge. Subjective ROS Limited/Unobtainable: No Allergies: Coded Allergies: No Known Allergies (Unverified , 08/14/19) Objective Last 24 Hour Vital Signs Date Time Temp Pulse Resp B/P (MAP) Pulse Ox O2 Delivery O2 Flow Rate FiO2 08/27/19 09:13 121/65 08/27/19 08:00 98.5 69 18 121/65 (83) 98 08/27/19 04:00 98.1 63 16 126/67 (86) 99 08/27/19 00:00 98.3 63 18 104/51 (68) 100 08/26/19 21:00 Room Air 08/26/19 20:44 119/65 08/26/19 20:03 95 Nasal Cannula 2.0 28 08/26/19 20:02 80 20 95 Nasal Cannula 2.0 28 08/26/19 20:00 97.3 64 16 119/65 (83) 99 08/26/19 16:00 98.4 64 18 112/62 (79) 98 Intake and Output 08/26/19 08/27/19 19:00 07:00 Intake Total 800 ml Balance 800 ml Other 800 ml # Voids 1 Objective General Appearance: WN, WD, WH Lines, tubes and drains: peripheral HEENT: normocephalic, atraumatic Neck: non-tender, normal alignment Respiratory/Chest: chest wall non-tender, rhonchi - right, expiratory wheezing Breasts: no masses Cardiovascular/Chest: normal peripheral pulses Abdomen: normal bowel sounds, non tender, hyperactive bowel sounds Extremities: normal range of motion Current Medications Medications (Trade) Dose Ordered Sig/Aguila Route PRN Reason Start Time Stop Time Status Last Admin Dose Admin Acetaminophen (Tylenol) 650 mg Q4H PRN ORAL Mild Pain/Temp > 100.5 08/21/19 16:08 09/13/19 16:07 08/24/19 17:34 Acetaminophen/ Hydrocodone Bitart ([place] 5/325) 1 tab TID PRN ORAL Moderate Pain (Pain Scale 4-6) 08/21/19 16:11 08/28/19 16:10 08/23/19 02:33 Albuterol/ Ipratropium (Albuterol/ Ipratropium) 3 ml Q4H PRN HHN Shortness of Breath 08/23/19 20:30 08/28/19 20:29 08/25/19 09:13 Aspirin (ASA) 81 mg DAILY ORAL 08/22/19 09:00 09/13/19 11:14 08/27/19 09:12 Clonidine HCl (Catapres tab) 0.2 mg Q12HR ORAL 08/21/19 21:00 09/16/19 20:59 08/27/19 09:13 Dextrose (Dextrose 50%) 25 ml Q30M PRN IV Hypoglycemia 08/21/19 16:08 09/13/19 16:07 Dextrose (Dextrose 50%) 50 ml Q30M PRN IV Hypoglycemia 08/21/19 16:09 09/13/19 16:08 Docusate Sodium (Colace) 100 mg TWICE A DAY ORAL 08/21/19 18:00 09/16/19 08:59 08/27/19 09:12 Dronabinol (Marinol) 2.5 mg TID ORAL 08/21/19 18:00 09/15/19 12:59 08/27/19 09:13 Heparin Sodium (Porcine) (Heparin 5000 units/ml) 5,000 units EVERY 12 HOURS SUBQ 08/22/19 09:00 09/13/19 08:59 08/27/19 09:15 Lactulose (Cephulac) 10 gm THREE TIMES A DAY ORAL 08/21/19 18:00 09/17/19 08:59 08/27/19 09:12 Nitroglycerin (Ntg) 0.4 mg Q5M X 3 DOSES PRN SL Prn Chest Pain 08/21/19 16:00 09/13/19 06:44 Ondansetron HCl (Zofran) 4 mg Q6H PRN IVP Nausea & Vomiting 08/21/19 16:10 09/13/19 16:09 Pantoprazole (Protonix) 40 mg DAILY ORAL 08/23/19 09:00 09/22/19 08:59 08/27/19 09:13 Polyethylene Glycol (Miralax) 17 gm BEDTIME ORAL 08/21/19 21:00 09/17/19 20:59 Promethazine HCl/ Codeine (Phenergan with Codeine) 5 ml Q6H PRN ORAL cough 08/21/19 16:10 09/13/19 16:09 08/23/19 02:31 Sertraline HCl (Zoloft) 25 mg DAILY ORAL 08/22/19 09:00 09/15/19 08:59 08/27/19 09:13 Simethicone (Mylicon) 80 mg Q6H PRN ORAL Abdominal cramps 08/21/19 20:00 09/19/19 07:59 Sucralfate (Carafate) 1 gm TID ORAL 08/21/19 18:00 09/19/19 08:59 08/27/19 09:12 Theophylline (Rigoberto-Dur) 100 mg EVERY 12 HOURS ORAL 08/21/19 21:00 09/13/19 08:59 08/27/19 09:12 Farhan Ortega MD Aug 27, 2019 12:47
--- NOTE | 2019-08-27 15:00 | Progress Note ---
DATE: 08/27/2019 SUBJECTIVE: This is a male patient who is 79-year-old. He has some chronic obstructive pulmonary disease. He has altered mental status and increased depression worsened by stress of his medical illness, that is why his attending has requested daily psychiatric consultation. MENTAL STATUS EXAMINATION: This is a 79-year-old male. Appearance is disheveled. Attitude, irritable and agitated. Affect, guarded and restricted. Intellect, poor. Mood, depressed and anxious. Motor activity, psychomotor agitation. Attention span is poor. Orientation x2. Speech is low volume and slurred. Thought process, disorganized and illogical. Insight and judgment is poor. DIAGNOSIS: Major depressive disorder, mild, recurrent, with psychotic features, rule out dementia with psychosis. PLAN: Plan for this patient, treat him with Zoloft at a dose of 25 mg daily. 20 minutes of cognitive behavioral therapy to help him identify his automatic negative thoughts and help him convert those negative thoughts to more positive thoughts to reduce depression, anxiety, and mood lability. Chart reviewed. Discussed with staff. Seen and assessed in his room. Misha Bird M.D. DR: TRANG JOB#: [id number] CC:
[2019-08-27 16:00] VITALS: BP 131/71
--- NOTE | 2019-08-27 17:00 | NUR ---
CASE MANAGEMENT:REVIEW MEDICARE APPEAL PENDING SI;AC BRONCHITIS. EMPHYSEMA. AC EXACERBATION OF CHR OBS AIRWAY DISEASE. 98.6 86 19 131/71 97% 2L NC NO LABS AVAILABLE IS;LASIX PO QD DUO NEB HHN Q4 HRS PRN PROTONIX PO QD TYREE-DUR PO Q12 HRS LACTULOSE PO TID SUCRALFATE PO TID PHENERGAN W/CODEINE PO Q6 HRS PRN MED SURG STATUS DCP;HOMELESS
--- NOTE | 2019-08-27 19:30 | NUR ---
NURSE NOTES: RECEIVED PATIENT FROM NICKOLAS CONCEPCION. PATIENT IS AWAKE, AAOX2, ON NASAL CANNULA 2L, NO ACUTE DISTRESS NOTED. VSS. 02 AT 99%. NO IV ACCESS. MD AWARE. PATIENT DENIES PAIN AND SOB. BED IS LOCKED AND LOW, BED ALARMS ACTIVE, SIDE RAILS UPX2 AND CALL LIGHT IS WITHIN REACH. WILL CONTINUE TO MONITOR.
--- NOTE | 2019-08-27 19:30 | NUR ---
HAND-OFF: Report given to Estefania.
[2019-08-27 20:00] VITALS: BP 109/62
[2019-08-27] MEDS: Miralax 17gm pkt ORAL SCH (22:50)
[2019-08-28] VITALS: BP 114/72
[2019-08-28 04:00] VITALS: BP 112/60
--- NOTE | 2019-08-28 05:00 | NUR ---
NURSE NOTES: PATIENT REFUSED AM LABS.
--- NOTE | 2019-08-28 07:47 | NUR ---
HAND-OFF: Report given to NICKOLAS Kay.
--- NOTE | 2019-08-28 07:48 | NUR ---
NURSE NOTES: Received patient in bed asleep. No SOB or acute distress. HOB elevated. Bed locked in lowest position and alarm on high sensitivity setting. Call light within reach. Frequent rounding continues for patient safety.
--- NOTE | 2019-08-28 07:53 | Pulmonology Progress Note ---
Assessment/Plan Assessment/Plan ASSESSMENT COPD exacerbation CHF with diastolic dysfunction HTN emphysema acute bronchitis pulm nodule tobacco abuse hx of cocaine abuse DJD with chronic back pain Hx of CVA abdominal pain fatty liver diverticulosis constipation PLAN OF CARE MS floor O2 HHN off steroids and empiric abx, SCX if able trial of theophylline a/tussive prn BiPAP at HS and prn - ordered DVT prophylaxis, travel counselor on smoking cessation Nicotine patch - declined CT chest with tiny pulm nodules, some disappeared from previous exam diuresis with Lasix, monitor volumes, cardiorenal parameters, BNP trending down ; less BLE edema ECHO with pEF 60% and RVSP of 34 BP management with Clonidine, dose increased by cardio a/plt therapy with ASA, lipid panel bowel regimen pain management urine tox negative GI follows CT of the abdomen and pelvis revealed fatty liver mild diverticulosis of the colon abd US -> No gallstones or biliary ductal dilatation. LFT trending down hepatitis panel negative declined EGD steroids tapered prior GI prophylaxis Carafate added declined SNF placement, wants to go on the street, lives in the car case discussed and evaluated by supervising physician Subjective Allergies: Coded Allergies: No Known Allergies (Unverified , 08/14/19) Subjective afebrile, no leukocytosis, no wheezing declined EGD Objective Last 24 Hour Vital Signs Date Time Temp Pulse Resp B/P (MAP) Pulse Ox O2 Delivery O2 Flow Rate FiO2 08/28/19 07:49 97 Nasal Cannula 21 08/28/19 07:48 93 20 97 Room Air 21 08/28/19 04:00 97.3 75 17 112/60 (77) 99 08/28/19 00:00 97.6 63 17 114/72 (86) 99 08/27/19 21:00 Nasal Cannula 2.0 08/27/19 21:00 109/62 08/27/19 20:00 97.2 98 17 109/62 (78) 98 08/27/19 16:00 98.4 86 18 131/71 (91) 97 08/27/19 12:00 98.6 81 19 127/73 (91) 99 08/27/19 09:13 121/65 08/27/19 09:00 Nasal Cannula 2.0 08/27/19 08:00 98.5 69 18 121/65 (83) 98 Intake and Output 08/27/19 08/28/19 19:00 07:00 Intake Total 1200 ml 1000 ml Balance 1200 ml 1000 ml Other 1200 ml 1000 ml # Voids 4 Objective General Appearance: no acute distress HEENT: normocephalic, atraumatic, anicteric, mucous membranes moist Respiratory/Chest: no respiratory distress, no accessory muscle use, diminished BS bilaterally Cardiovascular: normal rate, Abdomen: soft, mild diffused tender with mild distention Extremities: pedal pulses normal Neurologic/Psychiatric: no motor/sensory deficits, alert, responsive Musculoskeletal: normal muscle bulk Current Medications Medications (Trade) Dose Ordered Sig/Aguila Route PRN Reason Start Time Stop Time Status Last Admin Dose Admin Acetaminophen (Tylenol) 650 mg Q4H PRN ORAL Mild Pain/Temp > 100.5 08/21/19 16:08 09/13/19 16:07 08/24/19 17:34 Acetaminophen/ Hydrocodone Bitart ([place] 5/325) 1 tab TID PRN ORAL Moderate Pain (Pain Scale 4-6) 08/21/19 16:11 08/28/19 16:10 08/23/19 02:33 Albuterol/ Ipratropium (Albuterol/ Ipratropium) 3 ml Q4H PRN HHN Shortness of Breath 08/23/19 20:30 08/28/19 20:29 08/25/19 09:13 Aspirin (ASA) 81 mg DAILY ORAL 08/22/19 09:00 09/13/19 11:14 08/27/19 09:12 Clonidine HCl (Catapres tab) 0.2 mg Q12HR ORAL 08/21/19 21:00 09/16/19 20:59 08/27/19 09:13 Dextrose (Dextrose 50%) 25 ml Q30M PRN IV Hypoglycemia 08/21/19 16:08 09/13/19 16:07 Dextrose (Dextrose 50%) 50 ml Q30M PRN IV Hypoglycemia 08/21/19 16:09 09/13/19 16:08 Docusate Sodium (Colace) 100 mg TWICE A DAY ORAL 08/21/19 18:00 09/16/19 08:59 08/27/19 18:04 Dronabinol (Marinol) 2.5 mg TID ORAL 08/21/19 18:00 09/15/19 12:59 08/27/19 18:04 Furosemide (Lasix) 40 mg DAILY ORAL 08/28/19 09:00 09/27/19 08:59 Heparin Sodium (Porcine) (Heparin 5000 units/ml) 5,000 units EVERY 12 HOURS SUBQ 08/22/19 09:00 09/13/19 08:59 08/27/19 22:56 Lactulose (Cephulac) 10 gm THREE TIMES A DAY ORAL 08/21/19 18:00 09/17/19 08:59 08/27/19 18:04 Nitroglycerin (Ntg) 0.4 mg Q5M X 3 DOSES PRN SL Prn Chest Pain 08/21/19 16:00 09/13/19 06:44 Ondansetron HCl (Zofran) 4 mg Q6H PRN IVP Nausea & Vomiting 08/21/19 16:10 09/13/19 16:09 Pantoprazole (Protonix) 40 mg DAILY ORAL 08/23/19 09:00 09/22/19 08:59 08/27/19 09:13 Polyethylene Glycol (Miralax) 17 gm BEDTIME ORAL 08/21/19 21:00 09/17/19 20:59 08/27/19 22:50 Promethazine HCl/ Codeine (Phenergan with Codeine) 5 ml Q6H PRN ORAL cough 08/21/19 16:10 09/13/19 16:09 08/23/19 02:31 Sertraline HCl (Zoloft) 25 mg DAILY ORAL 08/22/19 09:00 09/15/19 08:59 08/27/19 09:13 Simethicone (Mylicon) 80 mg Q6H PRN ORAL Abdominal cramps 08/21/19 20:00 09/19/19 07:59 Sucralfate (Carafate) 1 gm TID ORAL 08/21/19 18:00 09/19/19 08:59 08/27/19 18:04 Theophylline (Rigoberto-Dur) 100 mg EVERY 12 HOURS ORAL 08/21/19 21:00 09/13/19 08:59 08/27/19 22:49 Mariana Canada RN MATERNAL CHILD Aug 28, 2019 07:53
[2019-08-28 08:00] VITALS: BP 137/75
[2019-08-28] MEDS: Lactulose 10gm/15ml UDC ORAL SCH ×3 (08:38→18:21)
[2019-08-28] MEDS: Sertraline 50mg tab ORAL SCH (08:38)
[2019-08-28] MEDS: Theophylline ER 100mg ORAL SCH ×2 (08:38→21:03)
[2019-08-28] MEDS: Docusate 100mg cap ORAL SCH ×2 (08:39→18:21)
[2019-08-28] MEDS: Furosemide 40mg tab ORAL SCH (08:39)
[2019-08-28] MEDS: Sucralfate 1gm tab ORAL SCH ×3 (08:39→18:21)
[2019-08-28] MEDS: cloNIDine 0.2mg Tab ORAL SCH ×2 (08:39→21:00)
[2019-08-28] MEDS: Dronabinol 2.5mg Cap ORAL SCH ×3 (08:39→18:21)
[2019-08-28] MEDS: Aspirin Baby 81mg ORAL SCH (08:39)
[2019-08-28] MEDS: Heparin 5000 units/ml inj SUBQ SCH ×2 (08:40→21:08)
--- NOTE | 2019-08-28 10:37 | Cardiac Electrophysiology PN ---
Assessment/Plan Assessment/Plan 1. Bilateral lower extremity edema and shortness of breath due to CHF due to diastolic dysfunction, EF 60% BNP decreased from 2500 to 1700 . Improved. Took Lasix po today! 2. HTN. On clonidine 0.2 mg bid and Lasix 40 po daily 3. COPD on Rigoberto-Dur, Solu-Medrol and antibiotic. 4. Abdominal pain. Abd US was negative, FU GI 5. Psych issue. FU Dr Pelon ESPINO RN. Refuses going to [facility] Wants to go back to street ( lives in his car) Subjective Subjective Alert in NAD. Walking in the room. Being FU by Psych. No events.Agreed to take his Po lasix today. Placement pending Objective Last 24 Hour Vital Signs Date Time Temp Pulse Resp B/P (MAP) Pulse Ox O2 Delivery O2 Flow Rate FiO2 08/28/19 08:39 137/75 08/28/19 08:00 97.3 73 18 137/75 (95) 100 08/28/19 07:49 97 Nasal Cannula 21 08/28/19 07:48 93 20 97 Room Air 21 08/28/19 04:00 97.3 75 17 112/60 (77) 99 08/28/19 00:00 97.6 63 17 114/72 (86) 99 08/27/19 21:00 Nasal Cannula 2.0 08/27/19 21:00 109/62 08/27/19 20:00 97.2 98 17 109/62 (78) 98 08/27/19 16:00 98.4 86 18 131/71 (91) 97 08/27/19 12:00 98.6 81 19 127/73 (91) 99 Intake and Output 08/27/19 08/28/19 19:00 07:00 Intake Total 1200 ml 1000 ml Balance 1200 ml 1000 ml Other 1200 ml 1000 ml # Voids 4 Objective HEAD AND NECK: No JVD. LUNGS: Decreased breath sounds with rhonchi. CARDIOVASCULAR: Regular S1 and S2 with no gallop. ABDOMEN: Soft. EXTREMITIES: Bilateral 2+ pitting edema Robbin Sinha MD Aug 28, 2019 10:36
[2019-08-28 12:00] VITALS: BP 141/79
--- NOTE | 2019-08-28 15:06 | Diagnostic Imaging Report ---
EXAM: XR Chest, 1 View CLINICAL HISTORY: DYSPNEA TECHNIQUE: Frontal view of the chest. COMPARISON: Chest radiograph on 08/14/2019 FINDINGS: Hardware: None. Lungs/pleura: Stable mild elevation of the left hemidiaphragm. No focal consolidation. No pleural effusion or pneumothorax. Heart/mediastinum: Normal. No cardiomegaly. Soft tissues: Unremarkable. Bones: No acute fracture. Degenerative changes of the acromioclavicular joints and spine. Upper abdomen: Normal. IMPRESSION: No acute disease identified.
--- NOTE | 2019-08-28 15:48 | General Progress Note ---
Assessment/Plan Problem List: (1) DJD (degenerative joint disease) ICD Codes: M19.90 - Unspecified osteoarthritis, unspecified site SNOMED: 760631393 (2) Bacteremia ICD Codes: R78.81 - Bacteremia SNOMED: 4393480 (3) Acute bronchitis ICD Codes: J20.9 - Acute bronchitis, unspecified SNOMED: 17809002 (4) Peripheral edema ICD Codes: R60.9 - Peripheral edema SNOMED: 149986093 (5) Chronic back pain ICD Codes: G89.29 - Other chronic pain; M54.9 - Chronic back pain SNOMED: 963024949 (6) Acute exacerbation of chronic obstructive airways disease ICD Codes: J44.1 - Acute exacerbation of chronic obstructive airways disease SNOMED: 080397994 (7) Diverticulosis ICD Codes: K57.90 - Diverticulosis of intestine, part unspecified, without perforation or abscess without bleeding SNOMED: 404281264 (8) CHF (congestive heart failure) ICD Codes: I50.9 - Heart failure, unspecified SNOMED: 06692228 (9) Constipation ICD Codes: K59.00 - Constipation, unspecified SNOMED: 83509221 Status: stable, progressing Assessment/Plan: resp insuff afebrile no weheezing afebrile edema chf resp insuff reviewed chart and labs Subjective ROS Limited/Unobtainable: Yes Allergies: Coded Allergies: No Known Allergies (Unverified , 08/14/19) Objective Last 24 Hour Vital Signs Date Time Temp Pulse Resp B/P (MAP) Pulse Ox O2 Delivery O2 Flow Rate FiO2 08/28/19 12:00 97.9 79 19 141/79 (99) 99 08/28/19 08:39 137/75 08/28/19 08:00 97.3 73 18 137/75 (95) 100 08/28/19 07:49 97 Nasal Cannula 21 08/28/19 07:48 93 20 97 Room Air 21 08/28/19 04:00 97.3 75 17 112/60 (77) 99 08/28/19 00:00 97.6 63 17 114/72 (86) 99 08/27/19 21:00 Nasal Cannula 2.0 08/27/19 21:00 109/62 08/27/19 20:00 97.2 98 17 109/62 (78) 98 08/27/19 16:00 98.4 86 18 131/71 (91) 97 Intake and Output 08/27/19 08/28/19 19:00 07:00 Intake Total 1200 ml 1000 ml Balance 1200 ml 1000 ml Other 1200 ml 1000 ml # Voids 4 Height (Feet): 6 Height (Inches): 1.00 Weight (Pounds): 175 Neck: normal inspection Cardiovascular: regular rhythm Dorothy Watts MD Aug 28, 2019 15:48
[2019-08-28 16:00] VITALS: BP 137/82
--- NOTE | 2019-08-28 19:30 | NUR ---
NURSE NOTES: Received report from NICKOLAS Kay. Patient breathing on 2L O2 via NC without distress. Awake and verbally responsive but refuses to answer to assessment questions at this time. Denies pain or discomfort. Patient said "No, I'm not doing that. I am watching TV right now" when asked assessment questions. Bed placed at the lowest with alarm, brake, and siderails up for safety. Call light placed within reach. Will continue to monitor.
[2019-08-28 20:00] VITALS: BP 95/49
--- NOTE | 2019-08-28 20:00 | NUR ---
NURSE NOTES: Patient has albuterol inhaler at the bedside. Explained hospital policy. Patient refused to give medication to pharmacy. Explained risk for keeping the medication at the bedside. Patient continues to refuse. Will continue to monitor.
[2019-08-28] MEDS: Miralax 17gm pkt ORAL SCH (21:00)
--- NOTE | 2019-08-28 21:00 | Progress Note ---
DATE: 08/28/2019 SUBJECTIVE: This is a 79-year-old male patient with COPD. He has increased depression, worsened by stress of his medical illness. He has altered mental status, decline in cognition below the baseline. MENTAL STATUS EXAMINATION: This is a 79-year-old male. Appearance is disheveled. Attitude, irritable and agitated. Affect, guarded and restricted. Intellect, poor. Mood, depressed and anxious. Motor activity, psychomotor agitation. Attention span is poor. Orientation x2. Speech is low volume and slurred. Thought process, disorganized and illogical. Insight and judgment are poor. DIAGNOSIS: Major depressive disorder, severe, recurrent, without psychotic features. PLAN: Zoloft 25 mg daily. 20 minutes of cognitive behavioral therapy to help him identify his automatic negative thoughts and help him convert those negative thoughts to more positive thoughts to reduce depression, anxiety, and mood lability. cognitive behavioral therapy ____ positive thoughts. Chart reviewed. Discussed with staff. Misha Bird M.D. DR: CARLEEN JOB#: [id number] CC:
[2019-08-29] VITALS: BP 114/58
[2019-08-29] MEDS: Albuterol/Ipratropium 3ml neb HHN PRN (01:27)
[2019-08-29 04:00] VITALS: BP 110/61
--- NOTE | 2019-08-29 07:39 | NUR ---
NURSE NOTES: Reached Dr. Ortega regarding patient's own medication at the bedside and patient's refusal to turn it into pharmacy. Left a message. Endorsed information to [facility].
--- NOTE | 2019-08-29 07:40 | NUR ---
HAND-OFF: Report given to NICKOLAS Alexis. Plan of care endorsed.
--- NOTE | 2019-08-29 07:58 | NUR ---
NURSE NOTES: Patient alert x3; on Nasal cannula 2 Liters; no sign of distress and shortness of breath; no sing of chest pain; NO IV access, MD aware; side rails up x2, breaks engaged, bed at lowest position; call light within reach; will keep monitoring.
[2019-08-29 08:00] VITALS: BP 123/68
[2019-08-29] MEDS: Furosemide 40mg tab ORAL SCH (08:56)
[2019-08-29] MEDS: Docusate 100mg cap ORAL SCH ×2 (08:56→17:29)
[2019-08-29] MEDS: Theophylline ER 100mg ORAL SCH ×2 (08:56→20:42)
[2019-08-29] MEDS: Sucralfate 1gm tab ORAL SCH ×3 (08:56→17:28)
[2019-08-29] MEDS: Lactulose 10gm/15ml UDC ORAL SCH ×3 (08:56→17:28)
[2019-08-29] MEDS: cloNIDine 0.2mg Tab ORAL SCH ×2 (08:57→20:42)
[2019-08-29] MEDS: Sertraline 50mg tab ORAL SCH (08:57)
[2019-08-29] MEDS: Aspirin Baby 81mg ORAL SCH (08:57)
[2019-08-29] MEDS: Dronabinol 2.5mg Cap ORAL SCH ×3 (08:57→17:29)
--- NOTE | 2019-08-29 08:57 | Pulmonology Progress Note ---
Assessment/Plan Assessment/Plan ASSESSMENT COPD exacerbation CHF with diastolic dysfunction HTN emphysema acute bronchitis pulm nodule tobacco abuse hx of cocaine abuse DJD with chronic back pain Hx of CVA abdominal pain fatty liver diverticulosis constipation PLAN OF CARE [facility] floor O2 HHN off steroids and empiric abx, SCX if able trial of theophylline a/tussive prn BiPAP at HS and prn - ordered , not delivered DVT prophylaxis, psychosocial rehabilitation counselor on smoking cessation Nicotine patch - declined CT chest with tiny pulm nodules, some disappeared from previous exam diuresis with Lasix, monitor volumes, cardiorenal parameters, BNP trending down ; less BLE edema ECHO with pEF 60% and RVSP of 34 BP management with Clonidine, dose increased by cardio a/plt therapy with ASA, lipid panel bowel regimen pain management urine tox negative GI follows CT of the abdomen and pelvis revealed fatty liver mild diverticulosis of the colon abd US -> No gallstones or biliary ductal dilatation. LFT trending down hepatitis panel negative declined EGD steroids tapered prior GI prophylaxis Carafate added declined SNF placement, wants to go on the street, lives in the car case discussed and evaluated by supervising physician Subjective Allergies: Coded Allergies: No Known Allergies (Unverified , 08/14/19) Subjective afebrile, no leukocytosis, no wheezing declined EGD Objective Last 24 Hour Vital Signs Date Time Temp Pulse Resp B/P (MAP) Pulse Ox O2 Delivery O2 Flow Rate FiO2 08/29/19 08:00 97.9 64 20 123/68 (86) 100 08/29/19 04:00 97.7 74 18 110/61 (77) 97 08/29/19 01:27 72 19 98 Nasal Cannula 2.0 28 71 18 96 08/29/19 00:00 97.8 63 18 114/58 (76) 96 08/28/19 21:00 Nasal Cannula 2.0 08/28/19 21:00 102/54 08/28/19 20:00 97.7 90 17 95/49 (64) 97 08/28/19 19:00 77 20 95 Room Air 21 08/28/19 19:00 95 Room Air 08/28/19 16:00 98.6 83 17 137/82 (100) 97 08/28/19 12:00 97.9 79 19 141/79 (99) 99 08/28/19 09:00 Nasal Cannula 2.0 Intake and Output 08/28/19 08/29/19 19:00 07:00 Intake Total 900 ml Balance 900 ml Other 900 ml # Voids 5 # Bowel Movements 2 Objective General Appearance: no acute distress HEENT: normocephalic, atraumatic, anicteric, mucous membranes moist Respiratory/Chest: no respiratory distress, no accessory muscle use, diminished BS bilaterally Cardiovascular: normal rate, Abdomen: soft, mild diffused tender with mild distention Extremities: pedal pulses normal Neurologic/Psychiatric: no motor/sensory deficits, alert, responsive Musculoskeletal: normal muscle bulk Current Medications Medications (Trade) Dose Ordered Sig/[place] Route PRN Reason Start Time Stop Time Status Last Admin Dose Admin Acetaminophen (Tylenol) 650 mg Q4H PRN ORAL Mild Pain/Temp > 100.5 08/21/19 16:08 09/13/19 16:07 08/24/19 17:34 Albuterol/ Ipratropium (Albuterol/ Ipratropium) 3 ml Q4H PRN HHN Shortness of Breath 08/28/19 20:30 09/02/19 20:29 08/29/19 01:27 Aspirin (ASA) 81 mg DAILY ORAL 08/22/19 09:00 09/13/19 11:14 08/28/19 08:39 Clonidine HCl (Catapres tab) 0.2 mg Q12HR ORAL 08/21/19 21:00 09/16/19 20:59 08/28/19 08:39 Dextrose (Dextrose 50%) 25 ml Q30M PRN IV Hypoglycemia 08/21/19 16:08 09/13/19 16:07 Dextrose (Dextrose 50%) 50 ml Q30M PRN IV Hypoglycemia 08/21/19 16:09 09/13/19 16:08 Docusate Sodium (Colace) 100 mg TWICE A DAY ORAL 08/21/19 18:00 09/16/19 08:59 08/28/19 18:21 Dronabinol (Marinol) 2.5 mg TID ORAL 08/21/19 18:00 09/15/19 12:59 08/28/19 18:21 Furosemide (Lasix) 40 mg DAILY ORAL 08/28/19 09:00 09/27/19 08:59 08/28/19 08:39 Heparin Sodium (Porcine) (Heparin 5000 units/ml) 5,000 units EVERY 12 HOURS SUBQ 08/22/19 09:00 09/13/19 08:59 08/28/19 21:08 Lactulose (Cephulac) 10 gm THREE TIMES A DAY ORAL 08/21/19 18:00 09/17/19 08:59 08/28/19 18:21 Nitroglycerin (Ntg) 0.4 mg Q5M X 3 DOSES PRN SL Prn Chest Pain 08/21/19 16:00 09/13/19 06:44 Ondansetron HCl (Zofran) 4 mg Q6H PRN IVP Nausea & Vomiting 08/21/19 16:10 09/13/19 16:09 Pantoprazole (Protonix) 40 mg DAILY ORAL 08/23/19 09:00 09/22/19 08:59 08/28/19 08:39 Polyethylene Glycol (Miralax) 17 gm BEDTIME ORAL 08/21/19 21:00 09/17/19 20:59 08/27/19 22:50 Promethazine HCl/ Codeine (Phenergan with Codeine) 5 ml Q6H PRN ORAL cough 08/21/19 16:10 09/13/19 16:09 08/23/19 02:31 Sertraline HCl (Zoloft) 25 mg DAILY ORAL 08/22/19 09:00 09/15/19 08:59 08/28/19 08:38 Simethicone (Mylicon) 80 mg Q6H PRN ORAL Abdominal cramps 08/21/19 20:00 09/19/19 07:59 Sucralfate (Carafate) 1 gm TID ORAL 08/21/19 18:00 09/19/19 08:59 08/28/19 18:21 Theophylline (Rigoberto-Dur) 100 mg EVERY 12 HOURS ORAL 08/21/19 21:00 09/13/19 08:59 08/28/19 21:03 Mariana Canada DIGITAL IMAGING SPECIALIST Aug 29, 2019 08:57
[2019-08-29] MEDS: Heparin 5000 units/ml inj SUBQ SCH ×2 (08:58→20:46)
--- NOTE | 2019-08-29 10:38 | Cardiac Electrophysiology PN ---
Assessment/Plan Assessment/Plan 1. Bilateral lower extremity edema and shortness of breath due to CHF due to diastolic dysfunction, EF 60% BNP decreased from 2500 to 1700 . Improved now back on Lasix 2. HTN. On clonidine 0.2 mg bid and Lasix 40 po daily 3. COPD on Rigoberto-Dur, Solu-Medrol and antibiotic. 4. Abdominal pain. Abd US was negative, FU GI 5. Psych issue. FU Dr Pelon ESPINO machine folder pending Subjective Subjective Alert in NAD. No events.Agreed to take his Po lasix . Placement pending Objective Last 24 Hour Vital Signs Date Time Temp Pulse Resp B/P (MAP) Pulse Ox O2 Delivery O2 Flow Rate FiO2 08/29/19 09:00 Nasal Cannula 2.0 08/29/19 08:57 123/68 08/29/19 08:00 97.9 64 20 123/68 (86) 100 08/29/19 04:00 97.7 74 18 110/61 (77) 97 08/29/19 01:27 72 19 98 Nasal Cannula 2.0 28 71 18 96 08/29/19 00:00 97.8 63 18 114/58 (76) 96 08/28/19 21:00 Nasal Cannula 2.0 08/28/19 21:00 102/54 08/28/19 20:00 97.7 90 17 95/49 (64) 97 08/28/19 19:00 77 20 95 Room Air 21 08/28/19 19:00 95 Room Air 08/28/19 16:00 98.6 83 17 137/82 (100) 97 08/28/19 12:00 97.9 79 19 141/79 (99) 99 Intake and Output 08/28/19 08/29/19 19:00 07:00 Intake Total 900 ml Balance 900 ml Other 900 ml # Voids 5 # Bowel Movements 2 Objective HEAD AND NECK: No JVD. LUNGS: Decreased breath sounds with rhonchi. CARDIOVASCULAR: Regular S1 and S2 with no gallop. ABDOMEN: Soft. EXTREMITIES: Bilateral 2+ pitting edema Robbin Sinha MD Aug 29, 2019 10:38
[2019-08-29 12:00] VITALS: BP 122/73
--- NOTE | 2019-08-29 14:05 | NUR ---
RD ASSESSMENT & RECOMMENDATIONS SEE CARE ACTIVITY FOR COMPLETE ASSESSMENT DAILY ESTIMATED NEEDS: Needs based on Liver, cardiac/ 82kg 25-30 kcals/kg 6430-8177 total kcals 1-1.3 g protein/kg 82-107 g total protein 20-25 mL/kg 5261-4201 total fluid mLs NUTRITION DIAGNOSIS: (1) Decreased sodium needs R/T cardiac hx, liver dysfunction as evidenced by h/o CHF w/ elev BNP (1729), on diuretics, h/o CVA, elev AST CURRENT DIET:REGULAR PO DIET RECOMMENDATIONS: Low Sodium/ texture as tolerated ADDITIONAL RECOMMENDATIONS: * Daily standing wt monitoring (on lasix) * Monitor lytes closely w/ Lasix, replete as needed * K now elevated, monitor trend, need for dietary restriction -> labs not updated from 08/23.
[2019-08-29 16:00] VITALS: BP 145/65
--- NOTE | 2019-08-29 18:30 | Progress Note ---
DATE: 08/29/2019 SUBJECTIVE: This is a 79-year-old male patient with COPD. The patient has increased depression and mood lability, decline in cognition below his baseline. That is why, his attending has requested daily psychiatric consultation. DIAGNOSIS: Major depressive disorder, mild, recurrent with psychotic features, rule out dementia with psychosis. PLAN: Treat him with Zoloft 25 mg daily. A 20 minutes of cognitive behavioral therapy to help him identify his automatic negative thoughts and help him convert those negative thoughts to more positive thoughts to reduce depression, anxiety, and suicidality. The patient did act appropriately with staff and patients. Chart reviewed. Discussed with staff. Seen and assessed at bedside. A 20 minutes cognitive behavioral therapy provided. Misha Bird M.D. DR: AMOL JOB#: [id number] CC:
--- NOTE | 2019-08-29 19:27 | NUR ---
HAND-OFF: Report given to NICKOLAS Taylor.
--- NOTE | 2019-08-29 19:48 | NUR ---
NURSE NOTES: Patient in bed, awake, alert and verbally responsive. Able to make needs known. Respiration is even and unlabored. Patient does not have nasal cannula on, noted patient saying he is "ok." Kept clean and comfortable. No complaint of pain or discomfort noted. No iv site noted. Call light is at bedside. Will continue plan of care.
[2019-08-29 20:00] VITALS: BP 117/65
[2019-08-29] MEDS: Miralax 17gm pkt ORAL SCH (20:46)
--- NOTE | 2019-08-29 21:50 | NUR ---
RESPIRATORY NOTE: pt refused to be placed bipap for now. pt is on RA SpO2 96%. no s/s of respiratory distress noted. coating mixer aware no red outlet inside pt's room.
--- NOTE | 2019-08-29 22:17 | General Progress Note ---
Assessment/Plan Problem List: (1) DJD (degenerative joint disease) ICD Codes: M19.90 - Unspecified osteoarthritis, unspecified site SNOMED: 588934255 (2) Bacteremia ICD Codes: R78.81 - Bacteremia SNOMED: 4152370 (3) Acute bronchitis ICD Codes: J20.9 - Acute bronchitis, unspecified SNOMED: 40152327 (4) Peripheral edema ICD Codes: R60.9 - Peripheral edema SNOMED: 253653735 (5) Chronic back pain ICD Codes: G89.29 - Other chronic pain; M54.9 - Chronic back pain SNOMED: 388867985 (6) Acute exacerbation of chronic obstructive airways disease ICD Codes: J44.1 - Acute exacerbation of chronic obstructive airways disease SNOMED: 437575385 (7) Diverticulosis ICD Codes: K57.90 - Diverticulosis of intestine, part unspecified, without perforation or abscess without bleeding SNOMED: 912082068 (8) CHF (congestive heart failure) ICD Codes: I50.9 - Heart failure, unspecified SNOMED: 89712648 (9) Constipation ICD Codes: K59.00 - Constipation, unspecified SNOMED: 23915457 Status: stable, progressing Assessment/Plan: no acute events afebrile back pain no abdominal pain edema chf resp insuff reviewed chart and labs Subjective ROS Limited/Unobtainable: Yes Allergies: Coded Allergies: No Known Allergies (Unverified , 08/14/19) Objective Last 24 Hour Vital Signs Date Time Temp Pulse Resp B/P (MAP) Pulse Ox O2 Delivery O2 Flow Rate FiO2 08/29/19 20:42 117/65 08/29/19 20:34 Nasal Cannula 2.0 08/29/19 20:05 85 22 96 Room Air 21 08/29/19 20:05 96 Room Air 08/29/19 20:00 97.5 68 14 117/65 (82) 96 08/29/19 16:00 99.3 80 18 145/65 (91) 94 08/29/19 12:00 97.7 67 20 122/73 (89) 97 08/29/19 09:00 Nasal Cannula 2.0 08/29/19 08:57 123/68 08/29/19 08:00 97.9 64 20 123/68 (86) 100 08/29/19 04:00 97.7 74 18 110/61 (77) 97 2/16/20 01:27 72 19 98 Nasal Cannula 2.0 28 71 18 96 08/29/19 00:00 97.8 63 18 114/58 (76) 96 Intake and Output 08/28/19 08/29/19 19:00 07:00 Intake Total 900 ml Balance 900 ml Other 900 ml # Voids 5 # Bowel Movements 2 Height (Feet): 6 Height (Inches): 1.00 Weight (Pounds): 175 Neck: supple Cardiovascular: normal rate Respiratory/Chest: lungs clear Dorothy Watts MD Aug 29, 2019 22:17
[2019-08-30] VITALS: BP 106/68
[2019-08-30 04:00] VITALS: BP 122/66
--- NOTE | 2019-08-30 07:04 | NUR ---
HAND-OFF: Report given to NICKOLAS Sales.
--- NOTE | 2019-08-30 07:07 | NUR ---
NURSE NOTES: Received pt in bed, sleeping. On NC 2L/min. No s/s of distress/pain. No IV access. Side rails x2. Bed in the lowest and locked. Call light within reach. Will continue to monitor
[2019-08-30 08:00] VITALS: BP 144/70
--- NOTE | 2019-08-30 08:50 | General Progress Note ---
Assessment/Plan Problem List: (1) Fatty liver ICD Codes: K76.0 - Fatty (change of) liver, not elsewhere classified SNOMED: 415225495 (2) CHF (congestive heart failure) ICD Codes: I50.9 - Heart failure, unspecified SNOMED: 41148221 (3) Emphysema ICD Codes: J43.9 - Emphysema SNOMED: 15531567 (4) Tobacco dependence ICD Codes: F17.200 - Nicotine dependence, unspecified, uncomplicated SNOMED: 96247473 (5) DJD (degenerative joint disease) ICD Codes: M19.90 - Unspecified osteoarthritis, unspecified site SNOMED: 929979045 (6) Elevated LFTs ICD Codes: R94.5 - Abnormal results of liver function studies SNOMED: 039483477, 197120264 (7) Diverticulosis ICD Codes: K57.90 - Diverticulosis of intestine, part unspecified, without perforation or abscess without bleeding SNOMED: 356241437 (8) Constipation ICD Codes: K59.00 - Constipation, unspecified SNOMED: 53928147 Status: stable, progressing Assessment/Plan: (1) Constipation ICD Codes: K59.00 - Constipation, unspecified SNOMED: 76601838 (2) Fatty liver ICD Codes: K76.0 - Fatty (change of) liver, not elsewhere classified SNOMED: 933076013 Status: unchanged Status Narrative Discussed with Dr. Bright. Assessment/Plan Abdominal CT IMPRESSION: Fatty liver. Suggestion of mild fibrosis at the right lung base. Other interstitial opacities nonspecific. Calcified granulomata within the spleen Moderate atherosclerotic vascular disease. Tiny left inguinal hernia containing fat Mild diverticulosis of the colon. Sclerotic appearing femoral heads. Query AVN. Moderate degenerative changes of the spine with severe disease in the lower lumbar spine. OB stool negative stool culture negative repeat labs neg stool ob refused EGD improving lfts fu cardiology Subjective ROS Limited/Unobtainable: Yes Allergies: Coded Allergies: No Known Allergies (Unverified , 08/14/19) Subjective c/o abd pain had BM no bleeding Objective Last 24 Hour Vital Signs Date Time Temp Pulse Resp B/P (MAP) Pulse Ox O2 Delivery O2 Flow Rate FiO2 08/30/19 08:00 97.3 52 18 144/70 (94) 99 08/30/19 04:00 97.3 51 16 122/66 (84) 100 08/30/19 00:00 96.8 92 16 106/68 (81) 96 08/29/19 20:42 117/65 08/29/19 20:34 Nasal Cannula 2.0 08/29/19 20:05 85 22 96 Room Air 21 08/29/19 20:05 96 Room Air 08/29/19 20:00 97.5 68 14 117/65 (82) 96 08/29/19 16:00 99.3 80 18 145/65 (91) 94 08/29/19 12:00 97.7 67 20 122/73 (89) 97 08/29/19 09:00 Nasal Cannula 2.0 08/29/19 08:57 123/68 Intake and Output 08/29/19 08/30/19 19:00 07:00 Intake Total 840 ml 400 ml Balance 840 ml 400 ml Intake Oral 840 ml Other 400 ml # Voids 3 3 Height (Feet): 6 Height (Inches): 1.00 Weight (Pounds): 175 General Appearance: alert EENT: normal ENT inspection Neck: supple Cardiovascular: normal rate Respiratory/Chest: lungs clear Abdomen: normal bowel sounds, non tender, soft Extremities: non-tender Won Bright MD Aug 30, 2019 08:50
[2019-08-30] MEDS: Lactulose 10gm/15ml UDC ORAL SCH ×4 (09:00→16:59)
[2019-08-30] MEDS: Furosemide 40mg tab ORAL SCH (09:32)
[2019-08-30] MEDS: Sertraline 50mg tab ORAL SCH (09:32)
[2019-08-30] MEDS: Theophylline ER 100mg ORAL SCH ×2 (09:32→21:01)
[2019-08-30] MEDS: Dronabinol 2.5mg Cap ORAL SCH ×3 (09:32→16:55)
[2019-08-30] MEDS: Docusate 100mg cap ORAL SCH ×2 (09:33→16:59)
[2019-08-30] MEDS: cloNIDine 0.2mg Tab ORAL SCH ×2 (09:33→21:00)
[2019-08-30] MEDS: Sucralfate 1gm tab ORAL SCH ×3 (09:33→16:55)
[2019-08-30] MEDS: Aspirin Baby 81mg ORAL SCH (09:33)
[2019-08-30] MEDS: Heparin 5000 units/ml inj SUBQ SCH ×2 (09:37→21:05)
--- NOTE | 2019-08-30 09:43 | Pulmonology Progress Note ---
Assessment/Plan Assessment/Plan ASSESSMENT COPD exacerbation CHF with diastolic dysfunction HTN emphysema acute bronchitis pulm nodule tobacco abuse hx of cocaine abuse DJD with chronic back pain Hx of CVA abdominal pain fatty liver diverticulosis constipation urinary burning ? UTI PLAN OF CARE MS floor O2 HHN off steroids and empiric abx, SCX if able trial of theophylline a/tussive prn BiPAP at HS and prn - ordered , not delivered DVT prophylaxis, drapery counselor on smoking cessation Nicotine patch - declined CT chest with tiny pulm nodules, some disappeared from previous exam diuresis with Lasix, monitor volumes, cardiorenal parameters, BNP trending down ; less BLE edema ECHO with pEF 60% and RVSP of 34 BP management with Clonidine, dose increased by cardio a/plt therapy with ASA, lipid panel bowel regimen pain management urine tox negative GI follows CT of the abdomen and pelvis revealed fatty liver mild diverticulosis of the colon abd US -> No gallstones or biliary ductal dilatation. LFT trending down hepatitis panel negative declined EGD steroids tapered prior GI prophylaxis Carafate added declined SNF placement, wants to go on the street, lives in the car check UA and CX, hold on abx now do PVR case discussed and evaluated by supervising physician Subjective Allergies: Coded Allergies: No Known Allergies (Unverified , 08/14/19) Subjective afebrile, no leukocytosis, no wheezing declined EGD Objective Last 24 Hour Vital Signs Date Time Temp Pulse Resp B/P (MAP) Pulse Ox O2 Delivery O2 Flow Rate FiO2 08/30/19 09:33 144/70 08/30/19 08:00 97.3 52 18 144/70 (94) 99 08/30/19 04:00 97.3 51 16 122/66 (84) 100 08/30/19 00:00 96.8 92 16 106/68 (81) 96 08/29/19 20:42 117/65 08/29/19 20:34 Nasal Cannula 2.0 08/29/19 20:05 85 22 96 Room Air 21 08/29/19 20:05 96 Room Air 08/29/19 20:00 97.5 68 14 117/65 (82) 96 08/29/19 16:00 99.3 80 18 145/65 (91) 94 08/29/19 12:00 97.7 67 20 122/73 (89) 97 Intake and Output 08/29/19 08/30/19 19:00 07:00 Intake Total 840 ml 400 ml Balance 840 ml 400 ml Intake Oral 840 ml Other 400 ml # Voids 3 3 Objective General Appearance: no acute distress HEENT: normocephalic, atraumatic, anicteric, mucous membranes moist Respiratory/Chest: no respiratory distress, no accessory muscle use, diminished BS bilaterally Cardiovascular: normal rate, Abdomen: soft, mild diffused tender with mild distention Extremities: pedal pulses normal Neurologic/Psychiatric: no motor/sensory deficits, alert, responsive Musculoskeletal: normal muscle bulk Current Medications Medications (Trade) Dose Ordered Sig/[place] Route PRN Reason Start Time Stop Time Status Last Admin Dose Admin Acetaminophen (Tylenol) 650 mg Q4H PRN ORAL Mild Pain/Temp > 100.5 08/21/19 16:08 09/13/19 16:07 08/24/19 17:34 Albuterol/ Ipratropium (Albuterol/ Ipratropium) 3 ml Q4H PRN HHN Shortness of Breath 08/28/19 20:30 09/02/19 20:29 08/29/19 01:27 Aspirin (ASA) 81 mg DAILY ORAL 08/22/19 09:00 09/13/19 11:14 08/30/19 09:33 Clonidine HCl (Catapres tab) 0.2 mg Q12HR ORAL 08/21/19 21:00 09/16/19 20:59 08/30/19 09:33 Dextrose (Dextrose 50%) 25 ml Q30M PRN IV Hypoglycemia 08/21/19 16:08 09/13/19 16:07 Dextrose (Dextrose 50%) 50 ml Q30M PRN IV Hypoglycemia 08/21/19 16:09 09/13/19 16:08 Docusate Sodium (Colace) 100 mg TWICE A DAY ORAL 08/21/19 18:00 09/16/19 08:59 08/30/19 09:33 Dronabinol (Marinol) 2.5 mg TID ORAL 08/21/19 18:00 09/15/19 12:59 08/30/19 09:32 Furosemide (Lasix) 40 mg DAILY ORAL 08/28/19 09:00 09/27/19 08:59 08/30/19 09:32 Heparin Sodium (Porcine) (Heparin 5000 units/ml) 5,000 units EVERY 12 HOURS SUBQ 08/22/19 09:00 09/13/19 08:59 08/30/19 09:37 Lactulose (Cephulac) 10 gm THREE TIMES A DAY ORAL 08/21/19 18:00 09/17/19 08:59 08/30/19 09:32 Nitroglycerin (Ntg) 0.4 mg Q5M X 3 DOSES PRN SL Prn Chest Pain 08/21/19 16:00 09/13/19 06:44 Ondansetron HCl (Zofran) 4 mg Q6H PRN IVP Nausea & Vomiting 08/21/19 16:10 09/13/19 16:09 Pantoprazole (Protonix) 40 mg DAILY ORAL 08/23/19 09:00 09/22/19 08:59 08/30/19 09:33 Polyethylene Glycol (Miralax) 17 gm BEDTIME ORAL 08/21/19 21:00 09/17/19 20:59 08/27/19 22:50 Promethazine HCl/ Codeine (Phenergan with Codeine) 5 ml Q6H PRN ORAL cough 08/21/19 16:10 09/13/19 16:09 08/23/19 02:31 Sertraline HCl (Zoloft) 25 mg DAILY ORAL 08/22/19 09:00 09/15/19 08:59 08/30/19 09:32 Simethicone (Mylicon) 80 mg Q6H PRN ORAL Abdominal cramps 08/21/19 20:00 09/19/19 07:59 Sucralfate (Carafate) 1 gm TID ORAL 08/21/19 18:00 09/19/19 08:59 08/30/19 09:33 Theophylline (Rigoberto-Dur) 100 mg EVERY 12 HOURS ORAL 08/21/19 21:00 09/13/19 08:59 08/30/19 09:32 Mariana [place] SET UP [employer] Aug 30, 2019 09:43
--- NOTE | 2019-08-30 10:21 | NUR ---
NURSE NOTES: post void residual= 97 ml
--- NOTE | 2019-08-30 11:05 | Diagnostic Imaging Report ---
Indication: Shortness of breath Technique: One view of the chest Comparison: To 2019 Findings: There is some scarring or atelectasis at the right lung base. Lungs and pleural spaces are otherwise clear.. The heart size is normal. The aorta is tortuous and ectatic. Findings are essentially unchanged Impression: Right basilar atelectasis or scarring. No acute process
[2019-08-30 12:00] VITALS: BP 117/68
--- NOTE | 2019-08-30 14:34 | Cardiac Electrophysiology PN ---
Assessment/Plan Assessment/Plan 1. Bilateral lower extremity edema and shortness of breath due to CHF due to diastolic dysfunction, EF 60% BNP decreased from 2500 to 1700 . On po Lasix 2. HTN. On clonidine 0.2 mg bid and Lasix 40 po daily 3. COPD on Rigoberto-Dur, Solu-Medrol and antibiotic. 4. Abdominal pain. Abd US was negative, FU GI 5. Psych issue. FU Dr Bird 6. Dysuria, UA pending DW RN Subjective Subjective Alert in NAD. No events.Is taking his Po lasix . Placement still pending Objective Last 24 Hour Vital Signs Date Time Temp Pulse Resp B/P (MAP) Pulse Ox O2 Delivery O2 Flow Rate FiO2 08/30/19 12:00 97.4 66 16 117/68 (84) 97 08/30/19 09:33 144/70 08/30/19 09:00 Nasal Cannula 2.0 08/30/19 08:00 97.3 52 18 144/70 (94) 99 08/30/19 04:00 97.3 51 16 122/66 (84) 100 08/30/19 00:00 96.8 92 16 106/68 (81) 96 08/29/19 20:42 117/65 08/29/19 20:34 Nasal Cannula 2.0 08/29/19 20:05 85 22 96 Room Air 21 08/29/19 20:05 96 Room Air 08/29/19 20:00 97.5 68 14 117/65 (82) 96 08/29/19 16:00 99.3 80 18 145/65 (91) 94 Intake and Output 08/29/19 08/30/19 19:00 07:00 Intake Total 840 ml 400 ml Balance 840 ml 400 ml Intake Oral 840 ml Other 400 ml # Voids 3 3 Objective HEAD AND NECK: No JVD. LUNGS: Decreased breath sounds with rhonchi. CARDIOVASCULAR: Regular S1 and S2 with no gallop. ABDOMEN: Soft. EXTREMITIES: Bilateral 2+ pitting edema Robbin Sinha MD Aug 30, 2019 14:34
[2019-08-30 16:00] VITALS: BP 129/67
--- NOTE | 2019-08-30 18:30 | Progress Note ---
DATE: 08/30/2019 SUBJECTIVE: This patient is a 79-year-old with COPD, confusion, disorganized thought process, decline in cognition below his baseline. That is why, the attending has requested daily psychiatric consultation at this time. This patient has some confusion, some disorganized thought process, some mood lability, and decline in cognition below his baseline. That is why, the attending has requested daily psychiatric consultation. He had an increased mood lability where his depression and anxiety worsened by stress of his medical illness. MENTAL STATUS EXAMINATION: This is a 79-year-old male. Appearance is disheveled. Attitude, irritable and agitated. Affect, guarded and restricted. Intellect poor. Mood, depressed and anxious. Motor activity, psychomotor agitation. Insight and judgment is poor. DIAGNOSIS: Major depressive disorder, mild, recurrent with psychotic features, rule out dementia with psychosis. PLAN: Treat this patient with Zoloft 25 mg daily. A 20 minutes of reality-based supportive psychotherapy. A 20 minutes of cognitive behavioral therapy provided where I helped him identify his automatic negative thoughts and convert negative thoughts to more positive thoughts to reduce depression, anxiety, mood lability. Chart reviewed. Discussed with the staff. Seen and assessed in his room. Misha Bird M.D. DR: CORINE JOB#: [id number] CC:
--- NOTE | 2019-08-30 19:12 | NUR ---
HAND-OFF: Report given to NICKOLAS Carvalho.
--- NOTE | 2019-08-30 19:20 | NUR ---
NURSE NOTES: Patient awake, alert, and verbally responsive with forgetfulness. Breathing unlabored on 2L o2 via nc without distress. Denies pain or discomfort at this time. No IV access, MD aware. Bed placed at the lowest with alarm, brake, and siderails up for safety. call light placed within reach. will continue to monitor and provide care as ordered.
[2019-08-30] MEDS: Albuterol/Ipratropium 3ml neb HHN PRN (19:38)
[2019-08-30 20:00] VITALS: BP 115/59
--- NOTE | 2019-08-30 20:56 | General Progress Note ---
Assessment/Plan Problem List: (1) DJD (degenerative joint disease) ICD Codes: M19.90 - Unspecified osteoarthritis, unspecified site SNOMED: 380677900 (2) Bacteremia ICD Codes: R78.81 - Bacteremia SNOMED: 3461873 (3) Acute bronchitis ICD Codes: J20.9 - Acute bronchitis, unspecified SNOMED: 39111562 (4) Peripheral edema ICD Codes: R60.9 - Peripheral edema SNOMED: 171089165 (5) Chronic back pain ICD Codes: G89.29 - Other chronic pain; M54.9 - Chronic back pain SNOMED: 704261973 (6) Acute exacerbation of chronic obstructive airways disease ICD Codes: J44.1 - Acute exacerbation of chronic obstructive airways disease SNOMED: 663157548 (7) Diverticulosis ICD Codes: K57.90 - Diverticulosis of intestine, part unspecified, without perforation or abscess without bleeding SNOMED: 247760887 (8) CHF (congestive heart failure) ICD Codes: I50.9 - Heart failure, unspecified SNOMED: 35060355 (9) Constipation ICD Codes: K59.00 - Constipation, unspecified SNOMED: 73361508 Status: stable, progressing Assessment/Plan: sepsis afebrile no wheezing diverticulosis fulid management per cardio edema chf resp insuff reviewed chart and labs Subjective ROS Limited/Unobtainable: Yes Allergies: Coded Allergies: No Known Allergies (Unverified , 08/14/19) Objective Last 24 Hour Vital Signs Date Time Temp Pulse Resp B/P (MAP) Pulse Ox O2 Delivery O2 Flow Rate FiO2 08/30/19 19:42 55 18 99 Nasal Cannula 2.0 28 08/30/19 19:38 63 19 98 Nasal Cannula 2.0 28 55 16 99 08/30/19 19:38 99 Nasal Cannula 2.0 28 08/30/19 16:00 97.5 68 17 129/67 (87) 95 08/30/19 12:00 97.4 66 16 117/68 (84) 97 08/30/19 09:33 144/70 08/30/19 09:00 Nasal Cannula 2.0 08/30/19 08:00 97.3 52 18 144/70 (94) 99 08/30/19 04:00 97.3 51 16 122/66 (84) 100 08/30/19 00:00 96.8 92 16 106/68 (81) 96 Intake and Output 08/29/19 08/30/19 19:00 07:00 Intake Total 840 ml 400 ml Balance 840 ml 400 ml Intake Oral 840 ml Other 400 ml # Voids 3 3 Height (Feet): 6 Height (Inches): 1.00 Weight (Pounds): 175 Cardiovascular: regular rhythm Respiratory/Chest: lungs clear Abdomen: soft Dorothy Watts MD Aug 30, 2019 20:56
[2019-08-30] MEDS: Miralax 17gm pkt ORAL SCH (21:00)
[2019-08-31] VITALS: BP 123/66
[2019-08-31 04:00] VITALS: BP 128/61
--- NOTE | 2019-08-31 07:41 | NUR ---
HAND-OFF: Report given to NICKOLAS Womack. Plan of care endorsed.
[2019-08-31 08:00] VITALS: BP 138/84
[2019-08-31] MEDS: Docusate 100mg cap ORAL SCH ×2 (09:00→16:53)
[2019-08-31] MEDS: Heparin 5000 units/ml inj SUBQ SCH ×2 (09:00→21:24)
[2019-08-31] MEDS: Lactulose 10gm/15ml UDC ORAL SCH ×3 (09:00→16:53)
[2019-08-31] MEDS: Dronabinol 2.5mg Cap ORAL SCH ×3 (09:11→17:12)
[2019-08-31] MEDS: Sertraline 50mg tab ORAL SCH (09:11)
[2019-08-31] MEDS: Furosemide 40mg tab ORAL SCH (09:11)
[2019-08-31] MEDS: cloNIDine 0.2mg Tab ORAL SCH ×2 (09:12→21:00)
[2019-08-31] MEDS: Theophylline ER 100mg ORAL SCH ×2 (09:12→21:21)
[2019-08-31] MEDS: Sucralfate 1gm tab ORAL SCH ×3 (09:12→17:13)
[2019-08-31] MEDS: Aspirin Baby 81mg ORAL SCH (09:12)
--- NOTE | 2019-08-31 10:23 | General Progress Note ---
Assessment/Plan Problem List: (1) Fatty liver ICD Codes: K76.0 - Fatty (change of) liver, not elsewhere classified SNOMED: 856416180 (2) CHF (congestive heart failure) ICD Codes: I50.9 - Heart failure, unspecified SNOMED: 24097498 (3) Emphysema ICD Codes: J43.9 - Emphysema SNOMED: 07940546 (4) Tobacco dependence ICD Codes: F17.200 - Nicotine dependence, unspecified, uncomplicated SNOMED: 69788410 (5) DJD (degenerative joint disease) ICD Codes: M19.90 - Unspecified osteoarthritis, unspecified site SNOMED: 892162959 (6) Elevated LFTs ICD Codes: R94.5 - Abnormal results of liver function studies SNOMED: 065619859, 922705212 (7) Diverticulosis ICD Codes: K57.90 - Diverticulosis of intestine, part unspecified, without perforation or abscess without bleeding SNOMED: 307433828 (8) Constipation ICD Codes: K59.00 - Constipation, unspecified SNOMED: 69277020 Status: stable, progressing Assessment/Plan: (1) Constipation ICD Codes: K59.00 - Constipation, unspecified SNOMED: 61054223 (2) Fatty liver ICD Codes: K76.0 - Fatty (change of) liver, not elsewhere classified SNOMED: 284157716 Status: unchanged i. Assessment/Plan Abdominal CT IMPRESSION: Fatty liver. Suggestion of mild fibrosis at the right lung base. Other interstitial opacities nonspecific. Calcified granulomata within the spleen Moderate atherosclerotic vascular disease. Tiny left inguinal hernia containing fat Mild diverticulosis of the colon. Sclerotic appearing femoral heads. Query AVN. Moderate degenerative changes of the spine with severe disease in the lower lumbar spine. OB stool negative stool culture negative repeat labs neg stool ob refused EGD improving lfts fu cardiology Subjective Allergies: Coded Allergies: No Known Allergies (Unverified , 08/14/19) Subjective c/o abd pain had BM no bleeding Objective Last 24 Hour Vital Signs Date Time Temp Pulse Resp B/P (MAP) Pulse Ox O2 Delivery O2 Flow Rate FiO2 08/31/19 09:40 60 20 99 Nasal Cannula 2.0 28 08/31/19 09:40 99 Nasal Cannula 2.0 28 08/31/19 09:12 138/84 08/31/19 08:43 Nasal Cannula 2.0 08/31/19 08:00 98.5 68 20 138/84 (102) 99 08/31/19 04:00 98.1 66 14 128/61 (83) 98 08/31/19 00:00 97.3 59 16 123/66 (85) 94 08/30/19 21:00 Nasal Cannula 2.0 08/30/19 21:00 104/60 08/30/19 20:00 97.9 55 14 115/59 (77) 95 08/30/19 19:42 55 18 99 Nasal Cannula 2.0 28 08/30/19 19:38 63 19 98 Nasal Cannula 2.0 28 55 16 99 08/30/19 19:38 99 Nasal Cannula 2.0 28 08/30/19 16:00 97.5 68 17 129/67 (87) 95 08/30/19 12:00 97.4 66 16 117/68 (84) 97 Intake and Output 08/30/19 08/31/19 19:00 07:00 Intake Total 400 ml Balance 400 ml Other 400 ml # Voids 3 Height (Feet): 6 Height (Inches): 1.00 Weight (Pounds): 175 General Appearance: alert EENT: normal ENT inspection Neck: supple Cardiovascular: normal rate Respiratory/Chest: decreased breath sounds Abdomen: normal bowel sounds, non tender, soft Extremities: non-tender Won Bright MD Aug 31, 2019 10:23
--- NOTE | 2019-08-31 10:56 | Cardiac Electrophysiology PN ---
Assessment/Plan Assessment/Plan 1. Bilateral LE edema and SOB due to CHF due to diastolic dysfunction, EF 60% BNP decreased from 2500 to 1700 . On po Lasix 2. HTN. On clonidine 0.2 mg bid and Lasix 40 po daily 3. COPD on Rigoberto-Dur, Solu-Medrol and antibiotic. 4. Abdominal pain. Abd US was negative, FU GI 5. Psych issue. FU Dr Bird 6. Dysuria, UA pending DW RN Subjective Subjective Alert in NAD. No events.On Po lasix . Placement still pending Objective Last 24 Hour Vital Signs Date Time Temp Pulse Resp B/P (MAP) Pulse Ox O2 Delivery O2 Flow Rate FiO2 08/31/19 09:40 60 20 99 Nasal Cannula 2.0 28 08/31/19 09:40 99 Nasal Cannula 2.0 28 08/31/19 09:12 138/84 08/31/19 08:43 Nasal Cannula 2.0 08/31/19 08:00 98.5 68 20 138/84 (102) 99 08/31/19 04:00 98.1 66 14 128/61 (83) 98 08/31/19 00:00 97.3 59 16 123/66 (85) 94 08/30/19 21:00 Nasal Cannula 2.0 08/30/19 21:00 104/60 08/30/19 20:00 97.9 55 14 115/59 (77) 95 08/30/19 19:42 55 18 99 Nasal Cannula 2.0 28 08/30/19 19:38 63 19 98 Nasal Cannula 2.0 28 55 16 99 08/30/19 19:38 99 Nasal Cannula 2.0 28 08/30/19 16:00 97.5 68 17 129/67 (87) 95 08/30/19 12:00 97.4 66 16 117/68 (84) 97 Intake and Output 08/30/19 08/31/19 19:00 07:00 Intake Total 400 ml Balance 400 ml Other 400 ml # Voids 3 Microbiology Date/Time Source Procedure Growth Status 08/30/19 10:05 Urine,Clean Catch Urine Culture - Preliminary NO GROWTH Resulted Objective HEAD AND NECK: No JVD. LUNGS: Decreased breath sounds with rhonchi. CARDIOVASCULAR: Regular S1 and S2 with no gallop. ABDOMEN: Soft. EXTREMITIES: Bilateral 2+ pitting edema Robbin Sinha MD Aug 31, 2019 10:56
[2019-08-31 11:49] LABS: APPEARANCE,URINE CLEAR; BILIRUBIN, URINE NEGATIVE (NEGATIVE); COLOR,URINE PALE YELLOW; GLUCOSE, URINE (UA) NEGATIVE (NEGATIVE); KETONES,URINE NEGATIVE (NEGATIVE); LEUKOCYTE ESTERASE ,URINE NEGATIVE (NEGATIVE); NITRITE,URINE NEGATIVE (NEGATIVE); PH,URINE 5 (4.5-8.0); PROTEIN,URINE NEGATIVE (NEGATIVE); UROBILINOGEN,URINE NORMAL MG/DL (0.0-1.0)
[2019-08-31 12:00] VITALS: BP 130/63
--- NOTE | 2019-08-31 13:41 | General Progress Note ---
Assessment/Plan Problem List: (1) Emphysema ICD Codes: J43.9 - Emphysema SNOMED: 37276251 (2) History of CVA (cerebrovascular accident) ICD Codes: Z86.73 - History of stroke SNOMED: 472371745 Status: stable, progressing Assessment/Plan: pt sdiwt o2 pulm tx psyc cardio eval cbc bmp am dc to snf if clear Subjective Constitutional: Reports: weakness Allergies: Coded Allergies: No Known Allergies (Unverified , 08/14/19) All Systems: reviewed and negative except above Subjective o2nc sleepy Objective Last 24 Hour Vital Signs Date Time Temp Pulse Resp B/P (MAP) Pulse Ox O2 Delivery O2 Flow Rate FiO2 08/31/19 12:00 98.1 59 19 130/63 (85) 93 08/31/19 09:40 60 20 99 Nasal Cannula 2.0 28 08/31/19 09:40 99 Nasal Cannula 2.0 28 08/31/19 09:12 138/84 08/31/19 08:43 Nasal Cannula 2.0 08/31/19 08:00 98.5 68 20 138/84 (102) 99 08/31/19 04:00 98.1 66 14 128/61 (83) 98 08/31/19 00:00 97.3 59 16 123/66 (85) 94 08/30/19 21:00 Nasal Cannula 2.0 08/30/19 21:00 104/60 08/30/19 20:00 97.9 55 14 115/59 (77) 95 08/30/19 19:42 55 18 99 Nasal Cannula 2.0 28 08/30/19 19:38 63 19 98 Nasal Cannula 2.0 28 55 16 99 08/30/19 19:38 99 Nasal Cannula 2.0 28 08/30/19 16:00 97.5 68 17 129/67 (87) 95 Intake and Output 08/30/19 08/31/19 19:00 07:00 Intake Total 400 ml Balance 400 ml Other 400 ml # Voids 3 Laboratory Tests 08/31/19 11:03: Urine Color Pale yellow, Urine Appearance Clear, Urine pH 5, Urine Specific [place] 1.010, Urine Protein Negative, Urine Glucose (UA) Negative, Urine Ketones Negative, Urine Blood Negative, Urine Nitrite Negative, Urine Bilirubin Negative, Urine Urobilinogen Normal, Urine Leukocyte Esterase Negative, Urine RBC 0-2H, Urine WBC 0-2, Urine Squamous Epithelial Cells Occasional, Urine Bacteria Occasional Height (Feet): 6 Height (Inches): 1.00 Weight (Pounds): 175 General Appearance: lethargic EENT: normal ENT inspection Neck: normal alignment Cardiovascular: normal peripheral pulses, normal rate, regular rhythm Respiratory/Chest: chest wall non-tender, lungs clear, normal breath sounds Abdomen: normal bowel sounds, non tender, soft Extremities: normal inspection Edema: no edema noted Arm (L), no edema noted Arm (R), no edema noted Leg (L), no edema noted Leg (R), no edema noted Pedal (L), no edema noted Pedal (R), no edema noted Generalized Neurologic: responsive, motor weakness Skin: normal pigmentation, warm/dry Fred Kay DO Aug 31, 2019 13:41
--- NOTE | 2019-08-31 13:54 | Pulmonology Progress Note ---
Assessment/Plan Problems: (1) Acute exacerbation of chronic obstructive airways disease (2) Acute bronchitis (3) Pulmonary nodule (4) Emphysema (5) Peripheral neuropathy (6) History of cocaine abuse (7) Chronic back pain (8) DJD (degenerative joint disease) Assessment/Plan wants physical therapy now, c/o weakness no new complains med/surg slightly better EF: 60% respiratory treatment symptomatic treatment Subjective ROS Limited/Unobtainable: No Constitutional: Reports: no symptoms HEENT: Repors: no symptoms Respiratory: Reports: no symptoms Allergies: Coded Allergies: No Known Allergies (Unverified , 08/14/19) Objective Last 24 Hour Vital Signs Date Time Temp Pulse Resp B/P (MAP) Pulse Ox O2 Delivery O2 Flow Rate FiO2 08/31/19 12:00 98.1 59 19 130/63 (85) 93 08/31/19 09:40 60 20 99 Nasal Cannula 2.0 28 08/31/19 09:40 99 Nasal Cannula 2.0 28 08/31/19 09:12 138/84 08/31/19 08:43 Nasal Cannula 2.0 08/31/19 08:00 98.5 68 20 138/84 (102) 99 08/31/19 04:00 98.1 66 14 128/61 (83) 98 08/31/19 00:00 97.3 59 16 123/66 (85) 94 08/30/19 21:00 Nasal Cannula 2.0 08/30/19 21:00 104/60 08/30/19 20:00 97.9 55 14 115/59 (77) 95 08/30/19 19:42 55 18 99 Nasal Cannula 2.0 28 08/30/19 19:38 63 19 98 Nasal Cannula 2.0 28 55 16 99 08/30/19 19:38 99 Nasal Cannula 2.0 28 08/30/19 16:00 97.5 68 17 129/67 (87) 95 Intake and Output 08/30/19 08/31/19 19:00 07:00 Intake Total 400 ml Balance 400 ml Other 400 ml # Voids 3 Objective General Appearance: WN, WD, WH Lines, tubes and drains: peripheral HEENT: normocephalic, atraumatic Neck: non-tender, normal alignment Respiratory/Chest: chest wall non-tender, rhonchi - right, expiratory wheezing Breasts: no masses Cardiovascular/Chest: normal peripheral pulses Abdomen: normal bowel sounds, non tender, hyperactive bowel sounds Extremities: normal range of motion Microbiology Date/Time Source Procedure Growth Status 08/30/19 10:05 Urine,Clean Catch Urine Culture - Preliminary NO GROWTH Resulted Laboratory Tests 08/31/19 11:03: Urine Color Pale yellow, Urine Appearance Clear, Urine pH 5, Urine Specific [place] 1.010, Urine Protein Negative, Urine Glucose (UA) Negative, Urine Ketones Negative, Urine Blood Negative, Urine Nitrite Negative, Urine Bilirubin Negative, Urine Urobilinogen Normal, Urine Leukocyte Esterase Negative, Urine RBC 0-2H, Urine WBC 0-2, Urine Squamous Epithelial Cells Occasional, Urine Bacteria Occasional Current Medications Medications (Trade) Dose Ordered Sig/[place]guila Route PRN Reason Start Time Stop Time Status Last Admin Dose Admin Acetaminophen (Tylenol) 650 mg Q4H PRN ORAL Mild Pain/Temp > 100.5 08/21/19 16:08 09/13/19 16:07 08/24/19 17:34 Albuterol/ Ipratropium (Albuterol/ Ipratropium) 3 ml Q4H PRN HHN Shortness of Breath 08/28/19 20:30 09/02/19 20:29 08/30/19 19:38 Aspirin (ASA) 81 mg DAILY ORAL 08/22/19 09:00 09/13/19 11:14 08/31/19 09:12 Clonidine HCl (Catapres tab) 0.2 mg Q12HR ORAL 08/21/19 21:00 09/16/19 20:59 08/31/19 09:12 Dextrose (Dextrose 50%) 25 ml Q30M PRN IV Hypoglycemia 08/21/19 16:08 09/13/19 16:07 Dextrose (Dextrose 50%) 50 ml Q30M PRN IV Hypoglycemia 08/21/19 16:09 09/13/19 16:08 Docusate Sodium (Colace) 100 mg TWICE A DAY ORAL 08/21/19 18:00 09/16/19 08:59 08/30/19 09:33 Dronabinol (Marinol) 2.5 mg TID ORAL 08/21/19 18:00 09/15/19 12:59 08/31/19 12:13 Furosemide (Lasix) 40 mg DAILY ORAL 08/28/19 09:00 09/27/19 08:59 08/31/19 09:11 Heparin Sodium (Porcine) (Heparin 5000 units/ml) 5,000 units EVERY 12 HOURS SUBQ 08/22/19 09:00 09/13/19 08:59 08/30/19 21:05 Lactulose (Cephulac) 10 gm THREE TIMES A DAY ORAL 08/21/19 18:00 09/17/19 08:59 08/29/19 17:28 Nitroglycerin (Ntg) 0.4 mg Q5M X 3 DOSES PRN SL Prn Chest Pain 08/21/19 16:00 09/13/19 06:44 Ondansetron HCl (Zofran) 4 mg Q6H PRN IVP Nausea & Vomiting 08/21/19 16:10 09/13/19 16:09 Pantoprazole (Protonix) 40 mg DAILY ORAL 08/23/19 09:00 09/22/19 08:59 08/31/19 09:12 Polyethylene Glycol (Miralax) 17 gm BEDTIME ORAL 08/21/19 21:00 09/17/19 20:59 08/27/19 22:50 Promethazine HCl/ Codeine (Phenergan with Codeine) 5 ml Q6H PRN ORAL cough 08/21/19 16:10 09/13/19 16:09 08/23/19 02:31 Sertraline HCl (Zoloft) 25 mg DAILY ORAL 08/22/19 09:00 09/15/19 08:59 08/31/19 09:11 Simethicone (Mylicon) 80 mg Q6H PRN ORAL Abdominal cramps 08/21/19 20:00 09/19/19 07:59 Sucralfate (Carafate) 1 gm TID ORAL 08/21/19 18:00 09/19/19 08:59 08/31/19 12:13 Theophylline (Rigoberto-Dur) 100 mg EVERY 12 HOURS ORAL 08/21/19 21:00 09/13/19 08:59 08/31/19 09:12 Farhan Ortega MD Aug 31, 2019 13:54
--- NOTE | 2019-08-31 15:58 | NUR ---
CHARGE NURSE NOTE: Pt states that during urination he is having pain. was called, message left.
[2019-08-31 16:00] VITALS: BP 132/74
--- NOTE | 2019-08-31 16:01 | NUR ---
CASE MANAGEMENT:REVIEW 08/30/2019 MEDICARE APPEAL PENDING SI;BLE EDEMA. HTN. COPD. 96.8 51 16 144/7 96% 2L NC IS;DUO NEB HHN Q4 HRS PRN LASIX PO QD PROTONIX PO QD ASA PO QD CLONIDINE PO Q12 HRS TYREE-DUR PO Q12 HRS SUCRALFATE PO TID PHENERGAN W/CODEINE PO Q6 HRS PRN MED SURG STATUS DCP;PLACEMENT
[2019-08-31] MEDS: Phenazopyridine 200mg tab ORAL SCH (16:14)
[2019-08-31] MEDS: Tamsulosin 0.4mg cap ORAL SCH (16:14)
--- NOTE | 2019-08-31 17:00 | Progress Note ---
DATE: 08/31/2019 SUBJECTIVE: This is a 79-year-old male patient with COPD. The patient is confused, disorganized, decline in cognition below his baseline. He has increased mood lability that is why his attending has requested daily psychiatric consultation. DIAGNOSIS: Major depressive disorder, mild, recurrent with psychotic features. PLAN: Treat him with Zoloft 25 mg daily. A 20 minutes of cognitive behavioral therapy provided to help him identify his automatic negative thoughts and help convert negative thoughts to more positive thoughts to reduce depression, anxiety, mood lability. Chart reviewed. Discussed with the staff. Seen and assessed at bedside. Misha Bird M.D. DR: Mitzi JOB#: [id number] CC:
--- NOTE | 2019-08-31 19:20 | NUR ---
HAND-OFF: Report given to NICKOLAS Mac.
[2019-08-31 20:00] VITALS: BP 93/60
--- NOTE | 2019-08-31 20:09 | NUR ---
NURSE NOTES: RECEIVED PATIENT FROM NICKOLAS AGOSTO. PATIENT IS AWAKE, AAO X4, ON NC 2L, NO ACUTE DISTRESS NOTED. NO IV ACCESS, MD AWARE. BED IS LOCKED AND LOW, BED ALARMS ACTIVE, SIDE RAILS UP X2, AND CALL LIGHT IS WITHIN REACH. WILL CONTINUE TO MONITOR.
[2019-08-31] MEDS: Miralax 17gm pkt ORAL SCH (21:00)
[2019-09-01] VITALS: BP 93/52
[2019-09-01] MEDS: Albuterol/Ipratropium 3ml neb HHN PRN (02:33)
[2019-09-01 04:00] VITALS: BP 112/54
--- NOTE | 2019-09-01 07:15 | NUR ---
HAND-OFF: Report given to OLIVER BLAND.
--- NOTE | 2019-09-01 07:25 | NUR ---
NURSE NOTES: RECEIVED PATIENT A/A/OX4, AMBULATORY. NO S/SX CARDIO-RESP DISTRESS NOTED. IV SITE PATENT AND INTACT. KEPT BED IN THE LOWEST POSITION. SIDERAILS ARE UPX2. BED ALARM AND LOCKED @ ALL TIMES. WILL CONT TO MONITOR.
[2019-09-01 08:00] VITALS: BP 124/70
[2019-09-01] MEDS: Phenazopyridine 200mg tab ORAL SCH ×3 (08:27→17:08)
[2019-09-01] MEDS: Tamsulosin 0.4mg cap ORAL SCH (08:28)
[2019-09-01] MEDS: Theophylline ER 100mg ORAL SCH ×2 (08:28→21:58)
[2019-09-01] MEDS: Docusate 100mg cap ORAL SCH ×2 (08:29→17:08)
[2019-09-01] MEDS: Aspirin Baby 81mg ORAL SCH (08:29)
[2019-09-01] MEDS: Dronabinol 2.5mg Cap ORAL SCH ×3 (08:29→17:08)
[2019-09-01] MEDS: Lactulose 10gm/15ml UDC ORAL SCH ×3 (08:29→17:08)
[2019-09-01] MEDS: Furosemide 40mg tab ORAL SCH (08:30)
[2019-09-01] MEDS: Sucralfate 1gm tab ORAL SCH ×3 (08:30→17:08)
[2019-09-01] MEDS: Heparin 5000 units/ml inj SUBQ SCH ×2 (08:35→21:58)
[2019-09-01] MEDS: Sertraline 50mg tab ORAL SCH (08:41)
[2019-09-01] MEDS: cloNIDine 0.2mg Tab ORAL SCH ×2 (08:41→21:00)
--- NOTE | 2019-09-01 08:58 | General Progress Note ---
Assessment/Plan Problem List: (1) Emphysema ICD Codes: J43.9 - Emphysema SNOMED: 55991317 (2) History of CVA (cerebrovascular accident) ICD Codes: Z86.73 - History of stroke SNOMED: 023716885 Status: stable, progressing Assessment/Plan: pt sdiwt o2 pulm tx psyc cardio eval cbc bmp am dc to snf if clear Subjective Respiratory: Reports: shortness of breath Allergies: Coded Allergies: No Known Allergies (Unverified , 08/14/19) All Systems: reviewed and negative except above Subjective o2nc sleepy Objective Last 24 Hour Vital Signs Date Time Temp Pulse Resp B/P (MAP) Pulse Ox O2 Delivery O2 Flow Rate FiO2 09/01/19 08:41 124/70 09/01/19 04:00 97.8 70 18 112/54 (73) 96 09/01/19 02:43 79 20 99 Nasal Cannula 2.0 28 09/01/19 02:33 78 20 97 Nasal Cannula 2.0 28 09/01/19 00:00 98.0 72 18 93/52 (66) 98 08/31/19 21:00 93/60 08/31/19 21:00 Nasal Cannula 2.0 08/31/19 20:14 63 18 98 Nasal Cannula 2.0 28 08/31/19 20:14 98 Nasal Cannula 2.0 28 08/31/19 20:00 98.2 73 18 93/60 (71) 97 08/31/19 16:00 98.3 62 20 132/74 (93) 99 08/31/19 12:00 98.1 59 19 130/63 (85) 93 08/31/19 09:40 60 20 99 Nasal Cannula 2.0 28 08/31/19 09:40 99 Nasal Cannula 2.0 28 08/31/19 09:12 138/84 Intake and Output 08/31/19 09/01/19 19:00 07:00 Intake Total 1200 ml 480 ml Balance 1200 ml 480 ml Intake Oral 1200 ml 480 ml # Voids 6 2 Laboratory Tests 08/31/19 11:03: Urine Color Pale yellow, Urine Appearance Clear, Urine pH 5, Urine Specific [place] 1.010, Urine Protein Negative, Urine Glucose (UA) Negative, Urine Ketones Negative, Urine Blood Negative, Urine Nitrite Negative, Urine Bilirubin Negative, Urine Urobilinogen Normal, Urine Leukocyte Esterase Negative, Urine RBC 0-2H, Urine WBC 0-2, Urine Squamous Epithelial Cells Occasional, Urine Bacteria Occasional Height (Feet): 6 Height (Inches): 1.00 Weight (Pounds): 174 General Appearance: lethargic EENT: normal ENT inspection Neck: normal alignment Cardiovascular: normal peripheral pulses, normal rate, regular rhythm Respiratory/Chest: chest wall non-tender, lungs clear, normal breath sounds Abdomen: normal bowel sounds, non tender, soft Extremities: normal inspection Edema: no edema noted Arm (L), no edema noted Arm (R), no edema noted Leg (L), no edema noted Leg (R), no edema noted Pedal (L), no edema noted Pedal (R), no edema noted Generalized Neurologic: responsive, motor weakness Skin: normal pigmentation, warm/dry Fred Kay DO Sep 01, 2019 08:58
--- NOTE | 2019-09-01 09:40 | NUR ---
PT NOTE Received MD order for PT evaluation. Attempted to see patient, patient refused to participate stating that exercises and ambulation cause him to be short of breath. Educated patient on the benefits of exercises, energy conservation techniques and proper breathing techniques to improve his activity tolerance and pulmonary function but patient still refused. Patient requested that therapist return tomorrow. Will re-attempt one more time to evaluate patient and if patient refuses, will discharge from PT. Nguyen BOYD notified.
--- NOTE | 2019-09-01 11:52 | GI Progress Note ---
Assessment/Plan Problems: (1) Constipation ICD Codes: K59.00 - Constipation, unspecified SNOMED: 18820130 (2) Fatty liver ICD Codes: K76.0 - Fatty (change of) liver, not elsewhere classified SNOMED: 174390093 Status: stable Status Narrative Discussed with Dr. Bright. Assessment/Plan Abdominal CT IMPRESSION: Fatty liver. Suggestion of mild fibrosis at the right lung base. Other interstitial opacities nonspecific. Calcified granulomata within the spleen Moderate atherosclerotic vascular disease. Tiny left inguinal hernia containing fat Mild diverticulosis of the colon. Sclerotic appearing femoral heads. Query AVN. Moderate degenerative changes of the spine with severe disease in the lower lumbar spine. OB stool negative stool culture negative repeat labs neg stool ob refused EGD improving lfts fu cardiology The patient was seen and examined at bedside and all new and available data was reviewed in the patients chart. I agree with the above findings, impression and plan. (Patient seen earlier today. Signature stamp does not reflect patient encounter time.). - Won Bright MD Subjective Subjective had BM Objective Last 24 Hour Vital Signs Date Time Temp Pulse Resp B/P (MAP) Pulse Ox O2 Delivery O2 Flow Rate FiO2 09/01/19 08:41 124/70 09/01/19 08:00 98.5 77 20 124/70 (88) 95 09/01/19 04:00 97.8 70 18 112/54 (73) 96 09/01/19 02:43 79 20 99 Nasal Cannula 2.0 28 09/01/19 02:33 78 20 97 Nasal Cannula 2.0 28 09/01/19 00:00 98.0 72 18 93/52 (66) 98 08/31/19 21:00 93/60 08/31/19 21:00 Nasal Cannula 2.0 08/31/19 20:14 63 18 98 Nasal Cannula 2.0 28 08/31/19 20:14 98 Nasal Cannula 2.0 28 08/31/19 20:00 98.2 73 18 93/60 (71) 97 08/31/19 16:00 98.3 62 20 132/74 (93) 99 08/31/19 12:00 98.1 59 19 130/63 (85) 93 Intake and Output 08/31/19 09/01/19 19:00 07:00 Intake Total 1200 ml 480 ml Balance 1200 ml 480 ml Intake Oral 1200 ml 480 ml # Voids 6 2 Height (Feet): 6 Height (Inches): 1.00 Weight (Pounds): 174 General Appearance: WD/WN, no apparent distress, alert Cardiovascular: normal rate Respiratory/Chest: normal breath sounds, no respiratory distress Abdominal Exam: normal bowel sounds, non tender, soft Extremities: normal range of motion, non-tender Sunita Mendoza NP Sep 01, 2019 11:52
[2019-09-01 12:00] VITALS: BP 113/73
--- NOTE | 2019-09-01 13:07 | Cardiac Electrophysiology PN ---
Assessment/Plan Assessment/Plan 1. Bilateral LE edema and SOB due to CHF due to diastolic dysfunction, EF 60% BNP decreased from 2500 to 1700 . On po Lasix 2. HTN. On clonidine 0.2 mg bid and Lasix 40 po daily 3. COPD on Rigoberto-Dur, Solu-Medrol and antibiotic. 4. Abdominal pain. Abd US was negative, FU GI 5. Psych issue. FU Dr Bird 6. Dysuria, UA was negative. On Piridium DW RN Subjective Subjective Alert in NAD. No events.On Po Lasix . Placement still pending Objective Last 24 Hour Vital Signs Date Time Temp Pulse Resp B/P (MAP) Pulse Ox O2 Delivery O2 Flow Rate FiO2 09/01/19 12:00 97.9 67 18 113/73 (86) 94 09/01/19 08:41 124/70 09/01/19 08:00 98.5 77 20 124/70 (88) 95 09/01/19 04:00 97.8 70 18 112/54 (73) 96 09/01/19 02:43 79 20 99 Nasal Cannula 2.0 28 09/01/19 02:33 78 20 97 Nasal Cannula 2.0 28 09/01/19 00:00 98.0 72 18 93/52 (66) 98 08/31/19 21:00 93/60 08/31/19 21:00 Nasal Cannula 2.0 08/31/19 20:14 63 18 98 Nasal Cannula 2.0 28 08/31/19 20:14 98 Nasal Cannula 2.0 28 08/31/19 20:00 98.2 73 18 93/60 (71) 97 08/31/19 16:00 98.3 62 20 132/74 (93) 99 Intake and Output 08/31/19 09/01/19 19:00 07:00 Intake Total 1200 ml 480 ml Balance 1200 ml 480 ml Intake Oral 1200 ml 480 ml # Voids 6 2 Microbiology Date/Time Source Procedure Growth Status 08/30/19 10:05 Urine,Clean Catch Urine Culture - Preliminary Mixed Gram Positive Organism Resulted Objective HEAD AND NECK: No JVD. LUNGS: Decreased breath sounds with rhonchi. CARDIOVASCULAR: Regular S1 and S2 with no gallop. ABDOMEN: Soft. EXTREMITIES: Bilateral 2+ pitting edema Robbin Sinha MD Sep 01, 2019 13:07
--- NOTE | 2019-09-01 13:20 | Pulmonology Progress Note ---
Assessment/Plan Problems: (1) Acute exacerbation of chronic obstructive airways disease (2) Acute bronchitis (3) Pulmonary nodule (4) Emphysema (5) Peripheral neuropathy (6) History of cocaine abuse (7) Chronic back pain (8) DJD (degenerative joint disease) Assessment/Plan wants physical therapy now, c/o weakness no new complains med/surg slightly better EF: 60% respiratory treatment symptomatic treatment placement in process Subjective ROS Limited/Unobtainable: No Constitutional: Reports: no symptoms HEENT: Repors: no symptoms Allergies: Coded Allergies: No Known Allergies (Unverified , 08/14/19) Objective Last 24 Hour Vital Signs Date Time Temp Pulse Resp B/P (MAP) Pulse Ox O2 Delivery O2 Flow Rate FiO2 09/01/19 12:00 97.9 67 18 113/73 (86) 94 09/01/19 08:41 124/70 09/01/19 08:00 98.5 77 20 124/70 (88) 95 09/01/19 04:00 97.8 70 18 112/54 (73) 96 09/01/19 02:43 79 20 99 Nasal Cannula 2.0 28 09/01/19 02:33 78 20 97 Nasal Cannula 2.0 28 09/01/19 00:00 98.0 72 18 93/52 (66) 98 08/31/19 21:00 93/60 08/31/19 21:00 Nasal Cannula 2.0 08/31/19 20:14 63 18 98 Nasal Cannula 2.0 28 08/31/19 20:14 98 Nasal Cannula 2.0 28 08/31/19 20:00 98.2 73 18 93/60 (71) 97 08/31/19 16:00 98.3 62 20 132/74 (93) 99 Intake and Output 08/31/19 09/01/19 19:00 07:00 Intake Total 1200 ml 480 ml Balance 1200 ml 480 ml Intake Oral 1200 ml 480 ml # Voids 6 2 Objective General Appearance: WN, WD, WH Lines, tubes and drains: peripheral HEENT: normocephalic, atraumatic Neck: non-tender, normal alignment Respiratory/Chest: chest wall non-tender, rhonchi - right, expiratory wheezing Breasts: no masses Cardiovascular/Chest: normal peripheral pulses Abdomen: normal bowel sounds, non tender, hyperactive bowel sounds Extremities: normal range of motion Microbiology Date/Time Source Procedure Growth Status 08/30/19 10:05 Urine,Clean Catch Urine Culture - Preliminary Mixed Gram Positive Organism Resulted Current Medications Medications (Trade) Dose Ordered Sig/[place] Route PRN Reason Start Time Stop Time Status Last Admin Dose Admin Acetaminophen (Tylenol) 650 mg Q4H PRN ORAL Mild Pain/Temp > 100.5 08/21/19 16:08 09/13/19 16:07 08/24/19 17:34 Albuterol/ Ipratropium (Albuterol/ Ipratropium) 3 ml Q4H PRN HHN Shortness of Breath 08/28/19 20:30 09/02/19 20:29 09/01/19 02:33 Aspirin (ASA) 81 mg DAILY ORAL 08/22/19 09:00 09/13/19 11:14 09/01/19 08:29 Clonidine HCl (Catapres tab) 0.2 mg Q12HR ORAL 08/21/19 21:00 09/16/19 20:59 08/31/19 09:12 Dextrose (Dextrose 50%) 25 ml Q30M PRN IV Hypoglycemia 08/21/19 16:08 09/13/19 16:07 Dextrose (Dextrose 50%) 50 ml Q30M PRN IV Hypoglycemia 08/21/19 16:09 09/13/19 16:08 Docusate Sodium (Colace) 100 mg TWICE A DAY ORAL 08/21/19 18:00 09/16/19 08:59 08/30/19 09:33 Dronabinol (Marinol) 2.5 mg TID ORAL 08/21/19 18:00 09/15/19 12:59 09/01/19 11:58 Furosemide (Lasix) 40 mg DAILY ORAL 08/28/19 09:00 09/27/19 08:59 09/01/19 08:30 Heparin Sodium (Porcine) (Heparin 5000 units/ml) 5,000 units EVERY 12 HOURS SUBQ 08/22/19 09:00 09/13/19 08:59 09/01/19 08:35 Lactulose (Cephulac) 10 gm THREE TIMES A DAY ORAL 08/21/19 18:00 09/17/19 08:59 08/29/19 17:28 Nitroglycerin (Ntg) 0.4 mg Q5M X 3 DOSES PRN SL Prn Chest Pain 08/21/19 16:00 09/13/19 06:44 Ondansetron HCl (Zofran) 4 mg Q6H PRN IVP Nausea & Vomiting 08/21/19 16:10 09/13/19 16:09 Pantoprazole (Protonix) 40 mg DAILY ORAL 08/23/19 09:00 09/22/19 08:59 09/01/19 08:28 Phenazopyridine HCl (Pyridium) 200 mg THREE TIMES A DAY ORAL 08/31/19 16:06 09/30/19 16:05 09/01/19 11:58 Polyethylene Glycol (Miralax) 17 gm BEDTIME ORAL 08/21/19 21:00 09/17/19 20:59 08/27/19 22:50 Promethazine HCl/ Codeine (Phenergan with Codeine) 5 ml Q6H PRN ORAL cough 08/21/19 16:10 09/13/19 16:09 08/23/19 02:31 Sertraline HCl (Zoloft) 25 mg DAILY ORAL 08/22/19 09:00 09/15/19 08:59 08/31/19 09:11 Simethicone (Mylicon) 80 mg Q6H PRN ORAL Abdominal cramps 08/21/19 20:00 09/19/19 07:59 Sucralfate (Carafate) 1 gm TID ORAL 08/21/19 18:00 09/19/19 08:59 09/01/19 11:58 Tamsulosin HCl (Flomax) 0.4 mg DAILY ORAL 08/31/19 16:15 09/30/19 16:14 09/01/19 08:28 Theophylline (Rigoberto-Dur) 100 mg EVERY 12 HOURS ORAL 08/21/19 21:00 09/13/19 08:59 09/01/19 08:28 Farhan Ortega MD Sep 01, 2019 13:20
[2019-09-01 16:00] VITALS: BP 129/69
--- NOTE | 2019-09-01 16:26 | NUR ---
CASE MANAGEMENT:REVIEW MEDICARE APPEAL PENDING SI;EMPHYSEMA. AC BRONCHITIS. AC EXACERBATION OF COPD. 98.5 79 20 112/54 94% 2L NC IS;DUO NEB HHN Q4 HRS PROTONIX PO QD ASA PO QD TYREE-DUR PO Q12 HRS MARINOL PO TID MED SURG STATUS DCP;PLACEMENT
--- NOTE | 2019-09-01 16:45 | Progress Note ---
DATE: 09/01/2019 SUBJECTIVE: This is a male patient who came into the hospital with chronic obstructive pulmonary disease. He has got some confusion, some disorganized thought process, and decline in cognition below his baseline. That is why, his attending has requested daily psychiatric consultation at this time. He is admitted to the hospital because of shortness of breath and chronic obstructive pulmonary disease, but he also has fatty liver, congestive heart failure, diverticulosis, elevated LFTs, COPD, peripheral edema, status post CVA, and degenerative joint disease. medical illness seemed to cause him to have increased anxiety and depression. That is why, his attending has requested daily psychiatric consultation. MENTAL STATUS EXAMINATION: This is a 79-year-old male. Appearance is disheveled. Attitude, irritable and agitated. Affect, guarded and restricted. Intellect, poor. Mood, depressed and anxious. Motor activity, psychomotor agitation. Attention span is poor. Orientation x2. Speech is low volume. Thought process, disorganized and illogical. Insight and judgment is poor. DIAGNOSIS: Major depressive disorder, mild, recurrent without psychotic features. PLAN: Treat him with Zoloft 25 mg daily. 20 minutes of cognitive behavioral therapy to help him identify automatic negative thoughts and help him convert those negative thoughts to more positive thoughts to reduce depression, anxiety, and mood lability. 20 minutes of cognitive behavioral therapy provided. Chart reviewed. Discussed with staff. Seen and assessed at bedside. Misha Bird M.D. DR: TRANG JOB#: [id number] CC:
--- NOTE | 2019-09-01 19:07 | NUR ---
HAND-OFF: Report given to
[2019-09-01 20:00] VITALS: BP 124/77
--- NOTE | 2019-09-01 20:03 | NUR ---
HAND-OFF: Report given to NICKOLAS BLAND. Addendum: 09/01/19 at 2004 by Estefania Zepeda RN WRONG TIME STAMP
--- NOTE | 2019-09-01 20:05 | NUR ---
NURSE NOTES: RECEIVED PATIENT FROM OLIVER BLAND. PATIENT IS AWAKE, AAO X4, ON NC 2L, NO ACUTE DISTRESS NOTED. PATIENT IS NOTED AMBULATING INSIDE ROOM. NO IV ACCESS, MD AWARE. CALL LIGHT IS WITHIN REACH. WILL CONTINUE TO MONITOR.
[2019-09-01] MEDS: Miralax 17gm pkt ORAL SCH (21:00)
[2019-09-02] VITALS: BP 142/77
[2019-09-02 04:00] VITALS: BP 137/80
--- NOTE | 2019-09-02 07:20 | NUR ---
nurse notes received patient sitting on the edge of the bed, patient awake, alert, oriented x4, no sign of distress, O2 AT 2LPM via NC,denies pain or discomfort, No IV access noted,ambulatory with steady gait, on fall precaution 4P;s in progress call light w/n reach , will continue to monitor nathan wade
--- NOTE | 2019-09-02 07:23 | NUR ---
HAND-OFF: Report given to NICKOLAS WALSH.
[2019-09-02 08:00] VITALS: BP 117/73
[2019-09-02] MEDS: Aspirin Baby 81mg ORAL SCH (08:37)
[2019-09-02] MEDS: cloNIDine 0.2mg Tab ORAL SCH ×2 (08:37→20:29)
[2019-09-02] MEDS: Theophylline ER 100mg ORAL SCH ×2 (08:37→20:25)
[2019-09-02] MEDS: Phenazopyridine 200mg tab ORAL SCH ×3 (08:37→17:04)
[2019-09-02] MEDS: Dronabinol 2.5mg Cap ORAL SCH ×3 (08:37→17:04)
[2019-09-02] MEDS: Sucralfate 1gm tab ORAL SCH ×3 (08:38→17:04)
[2019-09-02] MEDS: Sertraline 50mg tab ORAL SCH (08:40)
[2019-09-02] MEDS: Heparin 5000 units/ml inj SUBQ SCH ×2 (08:40→20:29)
[2019-09-02] MEDS: Tamsulosin 0.4mg cap ORAL SCH (08:41)
[2019-09-02] MEDS: Docusate 100mg cap ORAL SCH ×2 (08:41→17:04)
[2019-09-02] MEDS: Furosemide 40mg tab ORAL SCH (08:41)
[2019-09-02] MEDS: Lactulose 10gm/15ml UDC ORAL SCH ×3 (08:41→17:04)
--- NOTE | 2019-09-02 10:57 | GI Progress Note ---
Assessment/Plan Problems: (1) Constipation ICD Codes: K59.00 - Constipation, unspecified SNOMED: 41167996 (2) Fatty liver ICD Codes: K76.0 - Fatty (change of) liver, not elsewhere classified SNOMED: 938912440 Status: stable Status Narrative Discussed with Dr. Bright. Assessment/Plan Abdominal CT IMPRESSION: Fatty liver. Suggestion of mild fibrosis at the right lung base. Other interstitial opacities nonspecific. Calcified granulomata within the spleen Moderate atherosclerotic vascular disease. Tiny left inguinal hernia containing fat Mild diverticulosis of the colon. Sclerotic appearing femoral heads. Query AVN. Moderate degenerative changes of the spine with severe disease in the lower lumbar spine. OB stool negative stool culture negative repeat labs neg stool ob refused EGD improving [facility] fu cardiology The patient was seen and examined at bedside and all new and available data was reviewed in the patients chart. I agree with the above findings, impression and plan. (Patient seen earlier today. Signature stamp does not reflect patient encounter time.). - Won Bright MD Subjective Subjective had BM Objective Last 24 Hour Vital Signs Date Time Temp Pulse Resp B/P (MAP) Pulse Ox O2 Delivery O2 Flow Rate FiO2 09/02/19 08:58 Nasal Cannula 2.0 09/02/19 08:37 137/80 09/02/19 08:00 97.8 82 20 117/73 (88) 94 09/02/19 07:40 96 Nasal Cannula 2.0 28 09/02/19 07:39 74 18 96 Nasal Cannula 2.0 28 09/02/19 04:00 97.6 91 18 137/80 (99) 94 09/02/19 00:00 98.5 92 20 142/77 (98) 95 09/01/19 21:00 124/77 09/01/19 21:00 Nasal Cannula 2.0 09/01/19 20:00 97.0 78 20 124/77 (93) 95 09/01/19 19:57 77 18 97 Nasal Cannula 2.0 28 09/01/19 19:55 97 Nasal Cannula 2.0 28 09/01/19 16:00 98.1 65 19 129/69 (89) 94 09/01/19 12:00 97.9 67 18 113/73 (86) 94 Intake and Output 09/01/19 09/02/19 19:00 07:00 Intake Total 1200 ml 480 ml Balance 1200 ml 480 ml Intake Oral 1200 ml 480 ml # Voids 5 2 Height (Feet): 6 Height (Inches): 1.00 Weight (Pounds): 174 General Appearance: WD/WN, no apparent distress, alert Cardiovascular: normal rate Respiratory/Chest: normal breath sounds, no respiratory distress Abdominal Exam: normal bowel sounds, non tender, soft Extremities: normal range of motion, non-tender Sunita Mendoza FINANCIAL SALES ADVISOR Sep 02, 2019 10:57
[2019-09-02] MEDS: Albuterol/Ipratropium 3ml neb HHN PRN ×2 (11:17→20:04)
--- NOTE | 2019-09-02 11:40 | NUR ---
PT EVALUATION NOTE Patient seen for initial evaluation. Patient presents with generalized weakness and decreased activity tolerance. Patient requires SBA and verbal cues for safety with bed mobility tasks. Patient declined OOB activities due to c/o SOB. Patient will benefit from skilled inpatient PT intervention to address safety, strength and balance for increased level of activity tolerance and increased level of independence with functional mobility. Recommend discharge to SNF once medically cleared by MD. Addendum: 09/02/19 at 1309 by NAYA CASTORENA PT Amended: Links added.
[2019-09-02 11:58] VITALS: BP 112/72
--- NOTE | 2019-09-02 13:19 | Pulmonology Progress Note ---
Assessment/Plan Problems: (1) Acute exacerbation of chronic obstructive airways disease (2) Acute bronchitis (3) Pulmonary nodule (4) Emphysema (5) Peripheral neuropathy (6) History of cocaine abuse (7) Chronic back pain (8) DJD (degenerative joint disease) Assessment/Plan BIPAP prn did physical therapy , c/o weakness no new complains med/surg slightly better EF: 60% respiratory treatment symptomatic treatment placement in process Subjective ROS Limited/Unobtainable: No Constitutional: Reports: no symptoms HEENT: Repors: no symptoms Respiratory: Reports: no symptoms Allergies: Coded Allergies: No Known Allergies (Unverified , 08/14/19) Objective Last 24 Hour Vital Signs Date Time Temp Pulse Resp B/P (MAP) Pulse Ox O2 Delivery O2 Flow Rate FiO2 09/02/19 11:58 97.2 74 20 112/72 (85) 94 09/02/19 11:18 77 18 99 Nasal Cannula 2.0 28 74 18 97 09/02/19 08:58 Nasal Cannula 2.0 09/02/19 08:37 137/80 09/02/19 08:00 97.8 82 20 117/73 (88) 94 09/02/19 07:40 96 Nasal Cannula 2.0 28 09/02/19 07:39 74 18 96 Nasal Cannula 2.0 28 09/02/19 04:00 97.6 91 18 137/80 (99) 94 09/02/19 00:00 98.5 92 20 142/77 (98) 95 09/01/19 21:00 124/77 09/01/19 21:00 Nasal Cannula 2.0 09/01/19 20:00 97.0 78 20 124/77 (93) 95 09/01/19 19:57 77 18 97 Nasal Cannula 2.0 28 09/01/19 19:55 97 Nasal Cannula 2.0 28 09/01/19 16:00 98.1 65 19 129/69 (89) 94 Intake and Output 09/01/19 09/02/19 18:59 06:59 Intake Total 1200 ml 480 ml Balance 1200 ml 480 ml Intake Oral 1200 ml 480 ml # Voids 5 2 Objective General Appearance: WN, WD, WH Lines, tubes and drains: peripheral HEENT: normocephalic, atraumatic Neck: non-tender, normal alignment Respiratory/Chest: chest wall non-tender, rhonchi - right, expiratory wheezing Breasts: no masses Cardiovascular/Chest: normal peripheral pulses Abdomen: normal bowel sounds, non tender, hyperactive bowel sounds Extremities: normal range of motion Current Medications Medications (Trade) Dose Ordered Sig/[place] Route PRN Reason Start Time Stop Time Status Last Admin Dose Admin Acetaminophen (Tylenol) 650 mg Q4H PRN ORAL Mild Pain/Temp > 100.5 08/21/19 16:08 09/13/19 16:07 08/24/19 17:34 Albuterol/ Ipratropium (Albuterol/ Ipratropium) 3 ml Q4H PRN HHN Shortness of Breath 08/28/19 20:30 09/02/19 20:29 09/02/19 11:17 Aspirin (ASA) 81 mg DAILY ORAL 08/22/19 09:00 09/13/19 11:14 09/02/19 08:37 Clonidine HCl (Catapres tab) 0.2 mg Q12HR ORAL 08/21/19 21:00 09/16/19 20:59 09/02/19 08:37 Dextrose (Dextrose 50%) 25 ml Q30M PRN IV Hypoglycemia 08/21/19 16:08 09/13/19 16:07 Dextrose (Dextrose 50%) 50 ml Q30M PRN IV Hypoglycemia 08/21/19 16:09 09/13/19 16:08 Docusate Sodium (Colace) 100 mg TWICE A DAY ORAL 08/21/19 18:00 09/16/19 08:59 08/30/19 09:33 Dronabinol (Marinol) 2.5 mg TID ORAL 08/21/19 18:00 09/15/19 12:59 09/02/19 12:22 Furosemide (Lasix) 40 mg DAILY ORAL 08/28/19 09:00 09/27/19 08:59 09/01/19 08:30 Heparin Sodium (Porcine) (Heparin 5000 units/ml) 5,000 units EVERY 12 HOURS SUBQ 08/22/19 09:00 09/13/19 08:59 09/02/19 08:40 Lactulose (Cephulac) 10 gm THREE TIMES A DAY ORAL 08/21/19 18:00 09/17/19 08:59 08/29/19 17:28 Nitroglycerin (Ntg) 0.4 mg Q5M X 3 DOSES PRN SL Prn Chest Pain 08/21/19 16:00 09/13/19 06:44 Ondansetron HCl (Zofran) 4 mg Q6H PRN IVP Nausea & Vomiting 08/21/19 16:10 09/13/19 16:09 Pantoprazole (Protonix) 40 mg DAILY ORAL 08/23/19 09:00 09/22/19 08:59 09/02/19 08:38 Phenazopyridine HCl (Pyridium) 200 mg THREE TIMES A DAY ORAL 08/31/19 16:06 09/30/19 16:05 09/02/19 12:22 Polyethylene Glycol (Miralax) 17 gm BEDTIME ORAL 08/21/19 21:00 09/17/19 20:59 08/27/19 22:50 Promethazine HCl/ Codeine (Phenergan with Codeine) 5 ml Q6H PRN ORAL cough 08/21/19 16:10 09/13/19 16:09 08/23/19 02:31 Sertraline HCl (Zoloft) 25 mg DAILY ORAL 08/22/19 09:00 09/15/19 08:59 08/31/19 09:11 Simethicone (Mylicon) 80 mg Q6H PRN ORAL Abdominal cramps 08/21/19 20:00 09/19/19 07:59 Sucralfate (Carafate) 1 gm TID ORAL 08/21/19 18:00 09/19/19 08:59 09/02/19 12:22 Tamsulosin HCl (Flomax) 0.4 mg DAILY ORAL 08/31/19 16:15 09/30/19 16:14 09/02/19 08:41 Theophylline (Rigoberto-Dur) 100 mg EVERY 12 HOURS ORAL 08/21/19 21:00 09/13/19 08:59 09/02/19 08:37 Farhan Ortega MD Sep 02, 2019 13:19
--- NOTE | 2019-09-02 14:08 | General Progress Note ---
Assessment/Plan Problem List: (1) Emphysema ICD Codes: J43.9 - Emphysema SNOMED: 76592346 (2) History of CVA (cerebrovascular accident) ICD Codes: Z86.73 - History of stroke SNOMED: 103164157 Status: stable Assessment/Plan: pt sdiwt o2 pulm tx psyc cardio eval cbc bmp am aru eval Subjective Constitutional: Reports: weakness Allergies: Coded Allergies: No Known Allergies (Unverified , 08/14/19) All Systems: reviewed and negative except above Subjective o2nc sleepy Objective Last 24 Hour Vital Signs Date Time Temp Pulse Resp B/P (MAP) Pulse Ox O2 Delivery O2 Flow Rate FiO2 09/02/19 11:58 97.2 74 20 112/72 (85) 94 09/02/19 11:18 77 18 99 Nasal Cannula 2.0 28 74 18 97 09/02/19 08:58 Nasal Cannula 2.0 09/02/19 08:37 137/80 09/02/19 08:00 97.8 82 20 117/73 (88) 94 09/02/19 07:40 96 Nasal Cannula 2.0 28 09/02/19 07:39 74 18 96 Nasal Cannula 2.0 28 09/02/19 04:00 97.6 91 18 137/80 (99) 94 09/02/19 00:00 98.5 92 20 142/77 (98) 95 09/01/19 21:00 124/77 09/01/19 21:00 Nasal Cannula 2.0 09/01/19 20:00 97.0 78 20 124/77 (93) 95 09/01/19 19:57 77 18 97 Nasal Cannula 2.0 28 09/01/19 19:55 97 Nasal Cannula 2.0 28 09/01/19 16:00 98.1 65 19 129/69 (89) 94 Intake and Output 09/01/19 09/02/19 19:00 07:00 Intake Total 1200 ml 480 ml Balance 1200 ml 480 ml Intake Oral 1200 ml 480 ml # Voids 5 2 Height (Feet): 6 Height (Inches): 1.00 Weight (Pounds): 174 General Appearance: lethargic EENT: normal ENT inspection Neck: normal alignment Cardiovascular: normal peripheral pulses, normal rate, regular rhythm Respiratory/Chest: chest wall non-tender, lungs clear, normal breath sounds Abdomen: normal bowel sounds, non tender, soft Extremities: normal inspection Edema: no edema noted Arm (L), no edema noted Arm (R), no edema noted Leg (L), no edema noted Leg (R), no edema noted Pedal (L), no edema noted Pedal (R), no edema noted Generalized Neurologic: motor weakness Skin: normal pigmentation, warm/dry Fred Kay Sep 02, 2019 14:08
[2019-09-02 16:00] VITALS: BP 128/71
--- NOTE | 2019-09-02 16:14 | NUR ---
CASE MANAGEMENT:NOTE PATIENT HAS BEEN REFERRED TO MARY ANN SHEEHAN P: [phone] F: [phone] EMAIL: [email or web address]
--- NOTE | 2019-09-02 17:45 | Cardiac Electrophysiology PN ---
Assessment/Plan Assessment/Plan 1. Bilateral LE edema and SOB due to CHF due to diastolic dysfunction, EF 60% BNP decreased from 2500 to 1700 . On po Lasix 2. HTN. On clonidine 0.2 mg bid and Lasix 40 po daily 3. COPD on Rigoberto-Dur, Solu-Medrol and antibiotic. 4. Abdominal pain. Abd US was negative, FU GI 5. Psych issue. FU Dr Bird 6. Dysuria, UA was negative. On Piridium DW regional sales coordinator pendig Subjective Subjective Alert in NAD. No events.On Po Lasix . Wants his own apartment! Objective Last 24 Hour Vital Signs Date Time Temp Pulse Resp B/P (MAP) Pulse Ox O2 Delivery O2 Flow Rate FiO2 09/02/19 16:00 97.2 65 20 128/71 (90) 96 09/02/19 11:58 97.2 74 20 112/72 (85) 94 09/02/19 11:18 77 18 99 Nasal Cannula 2.0 28 74 18 97 09/02/19 08:58 Nasal Cannula 2.0 09/02/19 08:37 137/80 09/02/19 08:00 97.8 82 20 117/73 (88) 94 09/02/19 07:40 96 Nasal Cannula 2.0 28 09/02/19 07:39 74 18 96 Nasal Cannula 2.0 28 09/02/19 04:00 97.6 91 18 137/80 (99) 94 09/02/19 00:00 98.5 92 20 142/77 (98) 95 09/01/19 21:00 124/77 09/01/19 21:00 Nasal Cannula 2.0 09/01/19 20:00 97.0 78 20 124/77 (93) 95 09/01/19 19:57 77 18 97 Nasal Cannula 2.0 28 09/01/19 19:55 97 Nasal Cannula 2.0 28 Intake and Output 09/01/19 09/02/19 19:00 07:00 Intake Total 1200 ml 480 ml Balance 1200 ml 480 ml Intake Oral 1200 ml 480 ml # Voids 5 2 Objective HEAD AND NECK: No JVD. LUNGS: Decreased breath sounds with rhonchi. CARDIOVASCULAR: Regular S1 and S2 with no gallop. ABDOMEN: Soft. EXTREMITIES: Bilateral 2+ pitting edema Robbin Sinha MD Sep 02, 2019 17:45
--- NOTE | 2019-09-02 18:30 | Progress Note ---
DATE: 09/02/2019 NOTE: "POOR AUDIO QUALITY" SUBJECTIVE: This is a 79-year-old male patient with COPD. He has COPD. He is confused and disorganized. He has got no logical plan for his own self-care. This patient is admitted to the hospital because he has COPD. He has confusion, disorganized thought process, and decline in cognition below his baseline. He has shortness of breath and COPD, but he also has diverticulosis, elevated LFTs, peripheral edema, status post CVA, degenerative joint disease, causing him increased anxiety and depression. That is why, his attending physician has requested daily psychiatric consultation. MENTAL STATUS EXAMINATION: A 79-year-old male. Appearance is disheveled. Attitude, irritable and agitated. Affect, guarded and restricted. Intellect poor. Mood, depressed and anxious. Motor activity, psychomotor agitation. Attention span is poor. Orientation x2. Speech is low volume and slurred. Thought process, disorganized and illogical. Insight and judgment is poor. DIAGNOSIS: Major depressive disorder, mild, recurrent, without psychotic features. PLAN: Treat him with Zoloft 25 mg daily. Twenty minutes of cognitive behavioral therapy to help him identify his automatic negative thoughts and help him convert his negative thoughts to more positive thoughts to reduce depression, anxiety, and mood lability. Chart reviewed. Discussed with staff. Seen and assessed at bedside. Misha Bird M.D. DR: TORY JOB#: [id number] CC:
--- NOTE | 2019-09-02 19:19 | NUR ---
HAND-OFF: Report given to Ms Duane , patient resting comfortably in bed NICKOLAS CONTEH
--- NOTE | 2019-09-02 19:38 | NUR ---
NURSE NOTES: RECEIVED PATIENT FROM NICKOLAS WALSH. PATIENT IS AWAKE, RESTING IN BED, AAO X4, ON NC 2L, NO ACUTE DISTRESS NOTED. NO IV ACCESS, AWARE. CALL LIGHT IS WITHIN REACH. WILL CONTINUE TO MONITOR.
[2019-09-02 20:00] VITALS: BP 105/73
[2019-09-02] MEDS: Miralax 17gm pkt ORAL SCH (20:29)
[2019-09-03 04:00] VITALS: BP 124/75
[2019-09-03] MEDS: Promethazine/Codeine 5ml UD ORAL PRN (04:40)
[2019-09-03] MEDS: Albuterol/Ipratropium 3ml neb HHN SCH ×5 (05:15→23:00)
[2019-09-03 06:13] VITALS: BP 124/75
--- NOTE | 2019-09-03 07:08 | NUR ---
HAND-OFF: Report given to NICKOLAS WALSH.
--- NOTE | 2019-09-03 07:25 | NUR ---
nurse notes received patient in bed, patient awake, alert, oriented x4, no sign of distress, O2 at 2LPM via NC,denies pain or discomfort, No IV access noted,ambulatory with steady gait, on fall precaution 4P;s in progress call light w/n reach , will continue to monitor nathan wade
[2019-09-03 07:53] VITALS: BP 127/65
[2019-09-03] MEDS: Lactulose 10gm/15ml UDC ORAL SCH ×3 (08:31→17:09)
[2019-09-03] MEDS: Tamsulosin 0.4mg cap ORAL SCH (08:32)
[2019-09-03] MEDS: cloNIDine 0.2mg Tab ORAL SCH ×2 (08:32→20:50)
[2019-09-03] MEDS: Sucralfate 1gm tab ORAL SCH ×3 (08:32→17:08)
[2019-09-03] MEDS: Phenazopyridine 200mg tab ORAL SCH ×3 (08:32→17:08)
[2019-09-03] MEDS: Theophylline ER 100mg ORAL SCH ×2 (08:32→20:50)
[2019-09-03] MEDS: Aspirin Baby 81mg ORAL SCH (08:32)
[2019-09-03] MEDS: Sertraline 50mg tab ORAL SCH (08:32)
[2019-09-03] MEDS: Dronabinol 2.5mg Cap ORAL SCH ×3 (08:33→17:08)
[2019-09-03] MEDS: Heparin 5000 units/ml inj SUBQ SCH ×2 (08:36→20:56)
[2019-09-03] MEDS: Furosemide 40mg tab ORAL SCH (08:37)
[2019-09-03] MEDS: Docusate 100mg cap ORAL SCH ×2 (08:37→17:09)
--- NOTE | 2019-09-03 09:31 | General Progress Note ---
Assessment/Plan Problem List: (1) Emphysema ICD Codes: J43.9 - Emphysema SNOMED: 39712339 (2) History of CVA (cerebrovascular accident) ICD Codes: Z86.73 - History of stroke SNOMED: 266844790 Status: stable, progressing Assessment/Plan: pt sdiwt o2 pulm tx psyc cardio eval cbc bmp am aru eval Subjective Constitutional: Reports: weakness Allergies: Coded Allergies: No Known Allergies (Unverified , 08/14/19) All Systems: reviewed and negative except above Subjective o2nc sleepy Objective Last 24 Hour Vital Signs Date Time Temp Pulse Resp B/P (MAP) Pulse Ox O2 Delivery O2 Flow Rate FiO2 09/03/19 08:32 127/65 09/03/19 08:29 76 17 97 Room Air 21 09/03/19 08:28 97 Room Air 09/03/19 08:25 Nasal Cannula 2.0 09/03/19 07:53 97.5 79 18 127/65 (85) 95 09/03/19 06:13 97.3 75 18 124/75 (91) 95 09/03/19 05:16 78 18 99 Nasal Cannula 2.0 28 77 18 96 09/03/19 04:00 97.3 75 18 124/75 (91) 95 09/02/19 21:00 Nasal Cannula 2.0 09/02/19 20:29 105/73 09/02/19 20:06 73 18 99 Room Air 21 70 18 97 09/02/19 20:06 97 Room Air 09/02/19 20:05 70 18 97 Room Air 21 09/02/19 20:00 97.9 66 17 105/73 (84) 95 09/02/19 16:00 97.2 65 20 128/71 (90) 96 09/02/19 11:58 97.2 74 20 112/72 (85) 94 09/02/19 11:18 77 18 99 Nasal Cannula 2.0 28 74 18 97 Intake and Output 09/02/19 09/03/19 19:00 07:00 Intake Total 1360 ml Balance 1360 ml Intake Oral 1360 ml # Voids 4 3 # Bowel Movements 1 Height (Feet): 6 Height (Inches): 1.00 Weight (Pounds): 174 General Appearance: lethargic EENT: normal ENT inspection Neck: normal alignment Cardiovascular: normal peripheral pulses, normal rate, regular rhythm Respiratory/Chest: chest wall non-tender, lungs clear, normal breath sounds Abdomen: normal bowel sounds, non tender, soft Extremities: normal inspection Edema: no edema noted Arm (L), no edema noted Arm (R), no edema noted Leg (L), no edema noted Leg (R), no edema noted Pedal (L), no edema noted Pedal (R), no edema noted Generalized Neurologic: responsive, motor weakness Skin: normal pigmentation, warm/dry Fred Kay DO Sep 03, 2019 09:31
[2019-09-03 10:00] LABS: BASOPHILS % (AUTO) 0.6 % (0.0-2.0); EOSINOPHILS % (AUTO) 3.5 % (0.0-3.0); HEMATOCRIT 32.2 % (42.0-52.0); HEMOGLOBIN 11.1 G/DL (14.2-18.0); LYMPHOCYTES % (AUTO) 25.3 % (20.0-45.0); MEAN CORPUSCULAR VOLUME 97 FL (80-99); MONOCYTES % (AUTO) 11.8 % (1.0-10.0); NEUTROPHILS % (AUTO) 58.8 % (45.0-75.0); PLATELET COUNT 112 K/UL (150-450); RED BLOOD COUNT 3.31 M/UL (4.70-6.10); RED CELL DISTRIBUTION WIDTH 12.4 % (11.6-14.8); WHITE BLOOD COUNT 5.8 K/UL (4.8-10.8)
[2019-09-03 10:15] LABS: ANION GAP 12 mmol/L (5-15); BLOOD UREA NITROGEN 11 mg/dL (7-18); CARBON DIOXIDE 25 MMOL/L (21-32); CHLORIDE 104 MMOL/L (98-107); CREATININE 0.8 MG/DL (0.55-1.30); POTASSIUM 3.8 MMOL/L (3.5-5.1); SODIUM 141 MMOL/L (136-145)
--- NOTE | 2019-09-03 11:03 | GI Progress Note ---
Assessment/Plan Problems: (1) Constipation ICD Codes: K59.00 - Constipation, unspecified SNOMED: 90774326 (2) Fatty liver ICD Codes: K76.0 - Fatty (change of) liver, not elsewhere classified SNOMED: 462515502 Status: stable Status Narrative Discussed with Dr. Bright. Assessment/Plan Abdominal CT IMPRESSION: Fatty liver. Suggestion of mild fibrosis at the right lung base. Other interstitial opacities nonspecific. Calcified granulomata within the spleen Moderate atherosclerotic vascular disease. Tiny left inguinal hernia containing fat Mild diverticulosis of the colon. Sclerotic appearing femoral heads. Query AVN. Moderate degenerative changes of the spine with severe disease in the lower lumbar spine. OB stool negative stool culture negative repeat labs neg stool ob refused EGD improving lfts fu cardiology The patient was seen and examined at bedside and all new and available data was reviewed in the patients chart. I agree with the above findings, impression and plan. (Patient seen earlier today. Signature stamp does not reflect patient encounter time.). - Won Bright MD Subjective Subjective had BM Objective Last 24 Hour Vital Signs Date Time Temp Pulse Resp B/P (MAP) Pulse Ox O2 Delivery O2 Flow Rate FiO2 09/03/19 08:32 127/65 09/03/19 08:29 76 17 97 Room Air 21 09/03/19 08:28 97 Room Air 09/03/19 08:25 Nasal Cannula 2.0 09/03/19 07:53 97.5 79 18 127/65 (85) 95 09/03/19 06:13 97.3 75 18 124/75 (91) 95 09/03/19 05:16 78 18 99 Nasal Cannula 2.0 28 77 18 96 09/03/19 04:00 97.3 75 18 124/75 (91) 95 09/02/19 21:00 Nasal Cannula 2.0 09/02/19 20:29 105/73 09/02/19 20:06 73 18 99 Room Air 21 70 18 97 09/02/19 20:06 97 Room Air 09/02/19 20:05 70 18 97 Room Air 21 09/02/19 20:00 97.9 66 17 105/73 (84) 95 09/02/19 16:00 97.2 65 20 128/71 (90) 96 09/02/19 11:58 97.2 74 20 112/72 (85) 94 2/20/20 11:18 77 18 99 Nasal Cannula 2.0 28 74 18 97 Intake and Output 09/02/19 09/03/19 19:00 07:00 Intake Total 1360 ml Balance 1360 ml Intake Oral 1360 ml # Voids 4 3 # Bowel Movements 1 Laboratory Tests Test 09/03/19 09:30 White Blood Count 5.8 K/UL (4.8-10.8) Red Blood Count 3.31 M/UL (4.70-6.10) L Hemoglobin 11.1 G/DL (14.2-18.0) L Hematocrit 32.2 % (42.0-52.0) L Mean Corpuscular Volume 97 FL (80-99) Mean Corpuscular Hemoglobin 33.6 PG (27.0-31.0) H Mean Corpuscular Hemoglobin Concent 34.5 G/DL (32.0-36.0) Red Cell Distribution Width 12.4 % (11.6-14.8) Platelet Count 112 K/UL (150-450) L Mean Platelet Volume 6.1 FL (6.5-10.1) L Neutrophils (%) (Auto) 58.8 % (45.0-75.0) Lymphocytes (%) (Auto) 25.3 % (20.0-45.0) Monocytes (%) (Auto) 11.8 % (1.0-10.0) H Eosinophils (%) (Auto) 3.5 % (0.0-3.0) H Basophils (%) (Auto) 0.6 % (0.0-2.0) Sodium Level 141 MMOL/L (136-145) Potassium Level 3.8 MMOL/L (3.5-5.1) Chloride Level 104 MMOL/L (98-107) Carbon Dioxide Level 25 MMOL/L (21-32) Anion Gap 12 mmol/L (5-15) Blood Urea Nitrogen 11 mg/dL (7-18) Creatinine 0.8 MG/DL (0.55-1.30) Estimat Glomerular Filtration Rate > 60 mL/min (>60) Glucose Level 113 MG/DL (74-106) H Calcium Level 9.0 MG/DL (8.5-10.1) Height (Feet): 6 Height (Inches): 1.00 Weight (Pounds): 174 General Appearance: WD/WN, no apparent distress, alert Cardiovascular: normal rate Respiratory/Chest: normal breath sounds, no respiratory distress Abdominal Exam: normal bowel sounds, non tender, soft Extremities: normal range of motion, non-tender Sunita Mendoza NP Sep 03, 2019 11:03
--- NOTE | 2019-09-03 11:12 | Cardiac Electrophysiology PN ---
Assessment/Plan Assessment/Plan 1. Bilateral LE edema and SOB due to CHF due to diastolic dysfunction, EF 60% BNP decreased from 2500 to 1700 . On Lasix 40 po daily 2. HTN. On clonidine 0.2 mg bid and Lasix 40 po daily 3. COPD on Rigoberto-Dur, Solu-Medrol and antibiotic. 4. Abdominal pain. Abd US was negative, FU GI 5. Psych issue. FU Dr Bird 6. Dysuria, UA was negative. 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 No events.On Po Lasix . Placement pending Objective Last 24 Hour Vital Signs Date Time Temp Pulse Resp B/P (MAP) Pulse Ox O2 Delivery O2 Flow Rate FiO2 09/03/19 08:32 127/65 09/03/19 08:29 76 17 97 Room Air 21 09/03/19 08:28 97 Room Air 09/03/19 08:25 Nasal Cannula 2.0 09/03/19 07:53 97.5 79 18 127/65 (85) 95 09/03/19 06:13 97.3 75 18 124/75 (91) 95 09/03/19 05:16 78 18 99 Nasal Cannula 2.0 28 77 18 96 09/03/19 04:00 97.3 75 18 124/75 (91) 95 09/02/19 21:00 Nasal Cannula 2.0 09/02/19 20:29 105/73 09/02/19 20:06 73 18 99 Room Air 21 70 18 97 09/02/19 20:06 97 Room Air 09/02/19 20:05 70 18 97 Room Air 21 09/02/19 20:00 97.9 66 17 105/73 (84) 95 09/02/19 16:00 97.2 65 20 128/71 (90) 96 09/02/19 11:58 97.2 74 20 112/72 (85) 94 09/02/19 11:18 77 18 99 Nasal Cannula 2.0 28 74 18 97 Intake and Output 09/02/19 09/03/19 19:00 07:00 Intake Total 1360 ml Balance 1360 ml Intake Oral 1360 ml # Voids 4 3 # Bowel Movements 1 Laboratory Tests Test 09/03/19 09:30 White Blood Count 5.8 K/UL (4.8-10.8) Red Blood Count 3.31 M/UL (4.70-6.10) L Hemoglobin 11.1 G/DL (14.2-18.0) L Hematocrit 32.2 % (42.0-52.0) L Mean Corpuscular Volume 97 FL (80-99) Mean Corpuscular Hemoglobin 33.6 PG (27.0-31.0) H Mean Corpuscular Hemoglobin Concent 34.5 G/DL (32.0-36.0) Red Cell Distribution Width 12.4 % (11.6-14.8) Platelet Count 112 K/UL (150-450) L Mean Platelet Volume 6.1 FL (6.5-10.1) L Neutrophils (%) (Auto) 58.8 % (45.0-75.0) Lymphocytes (%) (Auto) 25.3 % (20.0-45.0) Monocytes (%) (Auto) 11.8 % (1.0-10.0) H Eosinophils (%) (Auto) 3.5 % (0.0-3.0) H Basophils (%) (Auto) 0.6 % (0.0-2.0) Sodium Level 141 MMOL/L (136-145) Potassium Level 3.8 MMOL/L (3.5-5.1) Chloride Level 104 MMOL/L (98-107) Carbon Dioxide Level 25 MMOL/L (21-32) Anion Gap 12 mmol/L (5-15) Blood Urea Nitrogen 11 mg/dL (7-18) Creatinine 0.8 MG/DL (0.55-1.30) Estimat Glomerular Filtration Rate > 60 mL/min (>60) Glucose Level 113 MG/DL (74-106) H Calcium Level 9.0 MG/DL (8.5-10.1) Objective HEAD AND NECK: No JVD. LUNGS: Decreased breath sounds with rhonchi. CARDIOVASCULAR: Regular S1 and S2 with no gallop. ABDOMEN: Soft. EXTREMITIES: Bilateral 2+ pitting edema Robbin Sinha MD Sep 03, 2019 11:12
[2019-09-03 11:36] VITALS: BP 118/72
--- NOTE | 2019-09-03 12:30 | Progress Note ---
DATE: 09/03/2019 SUBJECTIVE: This is a 79-year-old male with COPD, confused, disorganized. He has altered mental status, decline in cognition below his baseline, increased depression. He has COPD and some respiratory insufficiency. DIAGNOSIS: Major depressive disorder, mild, recurrent, without psychotic features. PLAN: Treat him with Zoloft 25 mg daily. A 20 minutes of cognitive behavioral therapy to help him identify his automatic negative thoughts and help him convert his negative thoughts to more positive thoughts to reduce depression, anxiety, and mood lability. Chart reviewed. Discussed with the staff. Seen and assessed in his room. Misha Bird M.D. DR: AMOL JOB#: [id number] CC:
--- NOTE | 2019-09-03 15:00 | Pulmonology Progress Note ---
Assessment/Plan Problems: (1) Acute exacerbation of chronic obstructive airways disease (2) Acute bronchitis (3) Pulmonary nodule (4) Emphysema (5) Peripheral neuropathy (6) History of cocaine abuse (7) Chronic back pain (8) DJD (degenerative joint disease) Assessment/Plan less short of breath did physical therapy , c/o weakness no new complains med/surg slightly better EF: 60% respiratory treatment symptomatic treatment placement in process Subjective Constitutional: Reports: no symptoms Allergies: Coded Allergies: No Known Allergies (Unverified , 08/14/19) Objective Last 24 Hour Vital Signs Date Time Temp Pulse Resp B/P (MAP) Pulse Ox O2 Delivery O2 Flow Rate FiO2 09/03/19 11:38 82 19 99 Nasal Cannula 2.0 28 79 18 97 09/03/19 11:36 97.2 69 20 118/72 (87) 95 09/03/19 08:32 127/65 09/03/19 08:29 76 17 97 Room Air 21 09/03/19 08:28 97 Room Air 09/03/19 08:25 Nasal Cannula 2.0 09/03/19 07:53 97.5 79 18 127/65 (85) 95 09/03/19 06:13 97.3 75 18 124/75 (91) 95 09/03/19 05:16 78 18 99 Nasal Cannula 2.0 28 77 18 96 09/03/19 04:00 97.3 75 18 124/75 (91) 95 09/02/19 21:00 Nasal Cannula 2.0 09/02/19 20:29 105/73 09/02/19 20:06 73 18 99 Room Air 21 70 18 97 09/02/19 20:06 97 Room Air 09/02/19 20:05 70 18 97 Room Air 21 09/02/19 20:00 97.9 66 17 105/73 (84) 95 09/02/19 16:00 97.2 65 20 128/71 (90) 96 Intake and Output 09/02/19 09/03/19 19:00 07:00 Intake Total 1360 ml Balance 1360 ml Intake Oral 1360 ml # Voids 4 3 # Bowel Movements 1 Objective General Appearance: WN, WD, WH Lines, tubes and drains: peripheral HEENT: normocephalic, atraumatic Neck: non-tender, normal alignment Respiratory/Chest: chest wall non-tender, rhonchi - right, expiratory wheezing Breasts: no masses Cardiovascular/Chest: normal peripheral pulses Abdomen: normal bowel sounds, non tender, hyperactive bowel sounds Extremities: normal range of motion Laboratory Tests 09/03/19 09:30: White Blood Count 5.8, Red Blood Count 3.31L, Hemoglobin 11.1L, Hematocrit 32.2L , Mean Corpuscular Volume 97, Mean Corpuscular Hemoglobin 33.6H, Mean Corpuscular Hemoglobin Concent 34.5, Red Cell Distribution Width 12.4, Platelet Count 112L, Mean Platelet Volume 6.1L, Neutrophils (%) (Auto) 58.8, Lymphocytes (%) (Auto) 25.3, Monocytes (%) (Auto) 11.8H, Eosinophils (%) (Auto) 3.5H, Basophils (%) (Auto) 0.6, Sodium Level 141, Potassium Level 3.8, Chloride Level 104, Carbon Dioxide Level 25, Anion Gap 12, Blood Urea Nitrogen 11, Creatinine 0.8, Estimat Glomerular Filtration Rate > 60, Glucose Level 113H, Calcium Level 9.0 Current Medications Medications (Trade) Dose Ordered Sig/Aguila Route PRN Reason Start Time Stop Time Status Last Admin Dose Admin Acetaminophen (Tylenol) 650 mg Q4H PRN ORAL Mild Pain/Temp > 100.5 08/21/19 16:08 09/13/19 16:07 08/24/19 17:34 Albuterol/ Ipratropium (Albuterol/ Ipratropium) 3 ml Q4HRT HHN 09/03/19 07:00 09/08/19 06:59 09/03/19 11:39 Aspirin (ASA) 81 mg DAILY ORAL 08/22/19 09:00 09/13/19 11:14 09/03/19 08:32 Clonidine HCl (Catapres tab) 0.2 mg Q12HR ORAL 08/21/19 21:00 09/16/19 20:59 09/03/19 08:32 Dextrose (Dextrose 50%) 25 ml Q30M PRN IV Hypoglycemia 08/21/19 16:08 09/13/19 16:07 Dextrose (Dextrose 50%) 50 ml Q30M PRN IV Hypoglycemia 08/21/19 16:09 09/13/19 16:08 Docusate Sodium (Colace) 100 mg TWICE A DAY ORAL 08/21/19 18:00 09/16/19 08:59 08/30/19 09:33 Dronabinol (Marinol) 2.5 mg TID ORAL 08/21/19 18:00 09/15/19 12:59 09/03/19 12:13 Furosemide (Lasix) 40 mg DAILY ORAL 08/28/19 09:00 09/27/19 08:59 09/01/19 08:30 Heparin Sodium (Porcine) (Heparin 5000 units/ml) 5,000 units EVERY 12 HOURS SUBQ 08/22/19 09:00 09/13/19 08:59 09/03/19 08:36 Lactulose (Cephulac) 10 gm THREE TIMES A DAY ORAL 08/21/19 18:00 09/17/19 08:59 09/03/19 08:31 Nitroglycerin (Ntg) 0.4 mg Q5M X 3 DOSES PRN SL Prn Chest Pain 08/21/19 16:00 09/13/19 06:44 Ondansetron HCl (Zofran) 4 mg Q6H PRN IVP Nausea & Vomiting 08/21/19 16:10 09/13/19 16:09 Pantoprazole (Protonix) 40 mg DAILY ORAL 08/23/19 09:00 09/22/19 08:59 09/03/19 08:32 Phenazopyridine HCl (Pyridium) 200 mg THREE TIMES A DAY ORAL 08/31/19 16:06 09/30/19 16:05 09/03/19 12:13 Polyethylene Glycol (Miralax) 17 gm BEDTIME ORAL 08/21/19 21:00 09/17/19 20:59 08/27/19 22:50 Promethazine HCl/ Codeine (Phenergan with Codeine) 5 ml Q6H PRN ORAL cough 08/21/19 16:10 09/13/19 16:09 09/03/19 04:40 Sertraline HCl (Zoloft) 25 mg DAILY ORAL 08/22/19 09:00 09/15/19 08:59 09/03/19 08:32 Simethicone (Mylicon) 80 mg Q6H PRN ORAL Abdominal cramps 08/21/19 20:00 09/19/19 07:59 Sucralfate (Carafate) 1 gm TID ORAL 08/21/19 18:00 09/19/19 08:59 09/03/19 12:13 Tamsulosin HCl (Flomax) 0.4 mg DAILY ORAL 08/31/19 16:15 09/30/19 16:14 09/03/19 08:32 Theophylline (Rigoberto-Dur) 100 mg EVERY 12 HOURS ORAL 08/21/19 21:00 09/13/19 08:59 09/03/19 08:32 Farhan Ortega MD Sep 03, 2019 15:00
[2019-09-03 15:44] VITALS: BP 119/57
--- NOTE | 2019-09-03 17:18 | NUR ---
CASE MANAGEMENT:REVIEW MEDICARE APPEAL PENDING SI;EMPHYSEMA. HX CVA. 97.2 80 20 127/65 93% 2L NC fio2 28 % IS;DUO NEB HHN Q4 HRT LASIX PO QD ASA PO QD TYREE-DUR PO Q12 HRS MARINOL PO TID MED SURG STATUS DCP;PLACEMENT
--- NOTE | 2019-09-03 19:07 | NUR ---
HAND-OFF: Report given to NICKOLAS Fajardo RN .
--- NOTE | 2019-09-03 19:40 | NUR ---
NURSE NOTES: Patient awake, alert, and verbally responsive. Breathing on 2L O2 via NC without distress. Denies pain or discomfort. No IV access, MD aware. Bed placed at the lowest with alarm, brake, and siderails up for safety. Call light placed within reach. Will continue to monitor and provide care as ordered.
[2019-09-03 20:00] VITALS: BP 121/70
[2019-09-03] MEDS: Miralax 17gm pkt ORAL SCH (20:50)
[2019-09-04] VITALS: BP 102/64
[2019-09-04] MEDS: Albuterol/Ipratropium 3ml neb HHN SCH ×6 (03:00→23:18)
[2019-09-04 04:00] VITALS: BP 130/69
--- NOTE | 2019-09-04 06:39 | General Progress Note ---
Assessment/Plan Problem List: (1) Fatty liver ICD Codes: K76.0 - Fatty (change of) liver, not elsewhere classified SNOMED: 423335982 (2) CHF (congestive heart failure) ICD Codes: I50.9 - Heart failure, unspecified SNOMED: 33723632 (3) Emphysema ICD Codes: J43.9 - Emphysema SNOMED: 48332768 (4) Tobacco dependence ICD Codes: F17.200 - Nicotine dependence, unspecified, uncomplicated SNOMED: 05957296 (5) DJD (degenerative joint disease) ICD Codes: M19.90 - Unspecified osteoarthritis, unspecified site SNOMED: 825974280 (6) Elevated LFTs ICD Codes: R94.5 - Abnormal results of liver function studies SNOMED: 560610626, 514700534 (7) Diverticulosis ICD Codes: K57.90 - Diverticulosis of intestine, part unspecified, without perforation or abscess without bleeding SNOMED: 846934467 (8) Constipation ICD Codes: K59.00 - Constipation, unspecified SNOMED: 41489873 Status: stable Assessment/Plan: (1) Constipation ICD Codes: K59.00 - Constipation, unspecified SNOMED: 88458989 (2) Fatty liver ICD Codes: K76.0 - Fatty (change of) liver, not elsewhere classified SNOMED: 623085794 Status: unchanged i. Assessment/Plan Abdominal CT IMPRESSION: Fatty liver. Suggestion of mild fibrosis at the right lung base. Other interstitial opacities nonspecific. Calcified granulomata within the spleen Moderate atherosclerotic vascular disease. Tiny left inguinal hernia containing fat Mild diverticulosis of the colon. Sclerotic appearing femoral heads. Query AVN. Moderate degenerative changes of the spine with severe disease in the lower lumbar spine. OB stool negative stool culture negative repeat labs neg stool ob refused EGD improving lfts fu cardiology Subjective ROS Limited/Unobtainable: Yes Allergies: Coded Allergies: No Known Allergies (Unverified , 08/14/19) Subjective c/o abd pain had BM no bleeding Objective Last 24 Hour Vital Signs Date Time Temp Pulse Resp B/P (MAP) Pulse Ox O2 Delivery O2 Flow Rate FiO2 09/04/19 04:00 97.5 69 18 130/69 (89) 95 09/04/19 03:32 77 18 97 Room Air 21 74 18 94 09/04/19 00:00 97.8 83 20 102/64 (77) 93 2/21/20 21:00 Nasal Cannula 2.0 09/03/19 20:50 121/70 09/03/19 20:00 98.7 83 20 121/70 (87) 95 09/03/19 19:48 95 Room Air 09/03/19 19:47 76 17 95 Room Air 21 09/03/19 19:46 78 18 98 Room Air 21 76 16 95 09/03/19 16:04 80 20 98 Nasal Cannula 2.0 28 75 16 97 09/03/19 15:44 97.4 67 20 119/57 (77) 93 09/03/19 11:38 82 19 99 Nasal Cannula 2.0 28 79 18 97 09/03/19 11:36 97.2 69 20 118/72 (87) 95 09/03/19 08:32 127/65 09/03/19 08:29 76 17 97 Room Air 21 09/03/19 08:28 97 Room Air 09/03/19 08:25 Nasal Cannula 2.0 09/03/19 07:53 97.5 79 18 127/65 (85) 95 Intake and Output 09/03/19 09/04/19 19:00 07:00 Intake Total 1140 ml 800 ml Balance 1140 ml 800 ml Intake Oral 1140 ml 800 ml # Voids 6 3 # Bowel Movements 2 Laboratory Tests 09/03/19 09:30: White Blood Count 5.8, Red Blood Count 3.31L, Hemoglobin 11.1L, Hematocrit 32.2L , Mean Corpuscular Volume 97, Mean Corpuscular Hemoglobin 33.6H, Mean Corpuscular Hemoglobin Concent 34.5, Red Cell Distribution Width 12.4, Platelet Count 112L, Mean Platelet Volume 6.1L, Neutrophils (%) (Auto) 58.8, Lymphocytes (%) (Auto) 25.3, Monocytes (%) (Auto) 11.8H, Eosinophils (%) (Auto) 3.5H, Basophils (%) (Auto) 0.6, Sodium Level 141, Potassium Level 3.8, Chloride Level 104, Carbon Dioxide Level 25, Anion Gap 12, Blood Urea Nitrogen 11, Creatinine 0.8, Estimat Glomerular Filtration Rate > 60, Glucose Level 113H, Calcium Level 9.0 Height (Feet): 6 Height (Inches): 1.00 Weight (Pounds): 174 General Appearance: alert EENT: normal ENT inspection Neck: supple Cardiovascular: normal rate Respiratory/Chest: decreased breath sounds Abdomen: normal bowel sounds, non tender, soft Extremities: non-tender Won Bright MD Sep 04, 2019 06:39
--- NOTE | 2019-09-04 07:03 | NUR ---
NURSE NOTES: Explained and educated patient regarding the blood draw and scheduled labs x 3, patient continues to refuse blood draw. Will continue to monitor.
--- NOTE | 2019-09-04 07:53 | NUR ---
HAND-OFF: Report given to NICKOLAS Benavides. Plan of care endorsed.
[2019-09-04 08:00] VITALS: BP 120/62
[2019-09-04] MEDS: Lactulose 10gm/15ml UDC ORAL SCH ×3 (09:00→18:00)
[2019-09-04] MEDS: Docusate 100mg cap ORAL SCH ×2 (09:00→18:00)
[2019-09-04] MEDS: Sertraline 50mg tab ORAL SCH (09:00)
--- NOTE | 2019-09-04 09:00 | NUR ---
NURSE NOTES: Patient alert sitting up eating breakfast,respirations unlabored.No concerns at this time.Call light within reach.
[2019-09-04] MEDS: Aspirin Baby 81mg ORAL SCH (09:35)
[2019-09-04] MEDS: Sucralfate 1gm tab ORAL SCH ×3 (09:36→19:06)
[2019-09-04] MEDS: Heparin 5000 units/ml inj SUBQ SCH ×2 (09:39→21:48)
[2019-09-04] MEDS: cloNIDine 0.2mg Tab ORAL SCH ×2 (09:41→21:00)
[2019-09-04] MEDS: Furosemide 40mg tab ORAL SCH (09:42)
[2019-09-04] MEDS: Tamsulosin 0.4mg cap ORAL SCH (09:42)
[2019-09-04] MEDS: Dronabinol 2.5mg Cap ORAL SCH ×3 (09:42→19:10)
[2019-09-04] MEDS: Theophylline ER 100mg ORAL SCH ×2 (09:43→21:45)
[2019-09-04] MEDS: Phenazopyridine 200mg tab ORAL SCH ×3 (09:43→19:10)
--- NOTE | 2019-09-04 09:58 | General Progress Note ---
Assessment/Plan Problem List: (1) Emphysema ICD Codes: J43.9 - Emphysema SNOMED: 93605295 (2) History of CVA (cerebrovascular accident) ICD Codes: Z86.73 - History of stroke SNOMED: 109389009 Status: stable, progressing Assessment/Plan: pt sdiwt o2 pulm tx psyc cardio eval cbc bmp am aru eval Subjective Constitutional: Reports: weakness Allergies: Coded Allergies: No Known Allergies (Unverified , 08/14/19) All Systems: reviewed and negative except above Subjective o2nc sleepy Objective Last 24 Hour Vital Signs Date Time Temp Pulse Resp B/P (MAP) Pulse Ox O2 Delivery O2 Flow Rate FiO2 09/04/19 09:41 122/72 09/04/19 08:07 75 20 99 Nasal Cannula 2.0 28 72 20 97 09/04/19 08:06 97 Nasal Cannula 2.0 28 09/04/19 08:06 72 20 97 Room Air 21 09/04/19 04:00 97.5 69 18 130/69 (89) 95 09/04/19 03:32 77 18 97 Room Air 21 74 18 94 09/04/19 00:00 97.8 83 20 102/64 (77) 93 09/03/19 21:00 Nasal Cannula 2.0 09/03/19 20:50 121/70 09/03/19 20:00 98.7 83 20 121/70 (87) 95 09/03/19 19:48 95 Room Air 09/03/19 19:47 76 17 95 Room Air 21 09/03/19 19:46 78 18 98 Room Air 21 76 16 95 09/03/19 16:04 80 20 98 Nasal Cannula 2.0 28 75 16 97 09/03/19 15:44 97.4 67 20 119/57 (77) 93 09/03/19 11:38 82 19 99 Nasal Cannula 2.0 28 79 18 97 09/03/19 11:36 97.2 69 20 118/72 (87) 95 Intake and Output 09/03/19 09/04/19 19:00 07:00 Intake Total 1140 ml 800 ml Balance 1140 ml 800 ml Intake Oral 1140 ml 800 ml # Voids 6 3 # Bowel Movements 2 Height (Feet): 6 Height (Inches): 1.00 Weight (Pounds): 174 General Appearance: lethargic EENT: normal ENT inspection Neck: normal alignment Cardiovascular: normal peripheral pulses, normal rate, regular rhythm Respiratory/Chest: chest wall non-tender, lungs clear, normal breath sounds Abdomen: normal bowel sounds, non tender, soft Extremities: normal inspection Edema: no edema noted Arm (L), no edema noted Arm (R), no edema noted Leg (L), no edema noted Leg (R), no edema noted Pedal (L), no edema noted Pedal (R), no edema noted Generalized Neurologic: motor weakness Skin: normal pigmentation, warm/dry Fred Kay Sep 04, 2019 09:58
--- NOTE | 2019-09-04 10:50 | Pulmonology Progress Note ---
Assessment/Plan Assessment/Plan ASSESSMENT COPD exacerbation CHF with diastolic dysfunction HTN emphysema acute bronchitis pulm nodule tobacco abuse hx of cocaine abuse DJD with chronic back pain Hx of CVA abdominal pain fatty liver diverticulosis constipation urinary burning ? UTI PLAN OF CARE MS floor O2 HHN off steroids and empiric abx, SCX if able trial of theophylline a/tussive prn BiPAP at HS and prn - DVT prophylaxis, assessment counselor on smoking cessation Nicotine patch - declined CT chest with tiny pulm nodules, some disappeared from previous exam diuresis with Lasix, monitor volumes, cardiorenal parameters, BNP trending down ; less BLE edema ECHO with pEF 60% and RVSP of 34 BP management with Clonidine, dose increased by cardio a/plt therapy with ASA, lipid panel bowel regimen pain management urine tox negative GI follows CT of the abdomen and pelvis revealed fatty liver mild diverticulosis of the colon abd US -> No gallstones or biliary ductal dilatation. LFT trending down hepatitis panel negative declined EGD steroids tapered prior GI prophylaxis Carafate added UA negative, UCX with mixed GP organisms, contaminant; symptomatic management, all sx resolved dc plan in progress declined SNF placement, wants to go on the street, lives in the car case discussed and evaluated by supervising physician Subjective Allergies: Coded Allergies: No Known Allergies (Unverified , 08/14/19) Subjective afebrile, no leukocytosis, no wheezing no signs of resp distress dc planning in progress declined EGD Objective Last 24 Hour Vital Signs Date Time Temp Pulse Resp B/P (MAP) Pulse Ox O2 Delivery O2 Flow Rate FiO2 09/04/19 09:41 122/72 09/04/19 08:07 75 20 99 Nasal Cannula 2.0 28 72 20 97 09/04/19 08:06 97 Nasal Cannula 2.0 28 09/04/19 08:06 72 20 97 Room Air 21 09/04/19 04:00 97.5 69 18 130/69 (89) 95 09/04/19 03:32 77 18 97 Room Air 21 74 18 94 09/04/19 00:00 97.8 83 20 102/64 (77) 93 09/03/19 21:00 Nasal Cannula 2.0 09/03/19 20:50 121/70 09/03/19 20:00 98.7 83 20 121/70 (87) 95 09/03/19 19:48 95 Room Air 09/03/19 19:47 76 17 95 Room Air 21 09/03/19 19:46 78 18 98 Room Air 21 76 16 95 09/03/19 16:04 80 20 98 Nasal Cannula 2.0 28 75 16 97 09/03/19 15:44 97.4 67 20 119/57 (77) 93 09/03/19 11:38 82 19 99 Nasal Cannula 2.0 28 79 18 97 09/03/19 11:36 97.2 69 20 118/72 (87) 95 Intake and Output 09/03/19 09/04/19 19:00 07:00 Intake Total 1140 ml 800 ml Balance 1140 ml 800 ml Intake Oral 1140 ml 800 ml # Voids 6 3 # Bowel Movements 2 Objective General Appearance: no acute distress HEENT: normocephalic, atraumatic, anicteric, mucous membranes moist Respiratory/Chest: no respiratory distress, no accessory muscle use, diminished BS bilaterally Cardiovascular: normal rate, Abdomen: soft, mild diffused tender with mild distention Extremities: pedal pulses normal Neurologic/Psychiatric: no motor/sensory deficits, alert, responsive Musculoskeletal: normal muscle bulk Current Medications Medications (Trade) Dose Ordered Sig/Aguila Route PRN Reason Start Time Stop Time Status Last Admin Dose Admin Acetaminophen (Tylenol) 650 mg Q4H PRN ORAL Mild Pain/Temp > 100.5 08/21/19 16:08 09/13/19 16:07 08/24/19 17:34 Albuterol/ Ipratropium (Albuterol/ Ipratropium) 3 ml Q4HRT HHN 09/03/19 07:00 09/08/19 06:59 09/04/19 08:09 Aspirin (ASA) 81 mg DAILY ORAL 08/22/19 09:00 09/13/19 11:14 09/04/19 09:35 Clonidine HCl (Catapres tab) 0.2 mg Q12HR ORAL 08/21/19 21:00 09/16/19 20:59 09/04/19 09:41 Dextrose (Dextrose 50%) 25 ml Q30M PRN IV Hypoglycemia 08/21/19 16:08 09/13/19 16:07 Dextrose (Dextrose 50%) 50 ml Q30M PRN IV Hypoglycemia 08/21/19 16:09 09/13/19 16:08 Docusate Sodium (Colace) 100 mg TWICE A DAY ORAL 08/21/19 18:00 09/16/19 08:59 08/30/19 09:33 Dronabinol (Marinol) 2.5 mg TID ORAL 08/21/19 18:00 09/15/19 12:59 09/04/19 09:42 Furosemide (Lasix) 40 mg DAILY ORAL 08/28/19 09:00 09/27/19 08:59 09/04/19 09:42 Heparin Sodium (Porcine) (Heparin 5000 units/ml) 5,000 units EVERY 12 HOURS SUBQ 08/22/19 09:00 09/13/19 08:59 09/04/19 09:39 Lactulose (Cephulac) 10 gm THREE TIMES A DAY ORAL 08/21/19 18:00 09/17/19 08:59 09/03/19 08:31 Nitroglycerin (Ntg) 0.4 mg Q5M X 3 DOSES PRN SL Prn Chest Pain 08/21/19 16:00 09/13/19 06:44 Ondansetron HCl (Zofran) 4 mg Q6H PRN IVP Nausea & Vomiting 08/21/19 16:10 09/13/19 16:09 Pantoprazole (Protonix) 40 mg DAILY ORAL 08/23/19 09:00 09/22/19 08:59 09/04/19 09:43 Phenazopyridine HCl (Pyridium) 200 mg THREE TIMES A DAY ORAL 08/31/19 16:06 09/30/19 16:05 09/04/19 09:43 Polyethylene Glycol (Miralax) 17 gm BEDTIME ORAL 08/21/19 21:00 09/17/19 20:59 08/27/19 22:50 Promethazine HCl/ Codeine (Phenergan with Codeine) 5 ml Q6H PRN ORAL cough 08/21/19 16:10 09/13/19 16:09 09/03/19 04:40 Sertraline HCl (Zoloft) 25 mg DAILY ORAL 08/22/19 09:00 09/15/19 08:59 09/03/19 08:32 Simethicone (Mylicon) 80 mg Q6H PRN ORAL Abdominal cramps 08/21/19 20:00 09/19/19 07:59 Sucralfate (Carafate) 1 gm TID ORAL 08/21/19 18:00 09/19/19 08:59 09/04/19 09:36 Tamsulosin HCl (Flomax) 0.4 mg DAILY ORAL 08/31/19 16:15 09/30/19 16:14 09/04/19 09:42 Theophylline (Rigoberto-Dur) 100 mg EVERY 12 HOURS ORAL 08/21/19 21:00 09/13/19 08:59 09/04/19 09:43 Mariana Canada [employer] Sep 04, 2019 10:50
[2019-09-04 12:00] VITALS: BP 94/66
--- NOTE | 2019-09-04 13:29 | Cardiac Electrophysiology PN ---
Assessment/Plan Assessment/Plan 1. Bilateral LE edema and SOB due to CHF due to diastolic dysfunction, EF 60% BNP decreased from 2500 to 1700 . On Lasix 40 po daily 2. HTN. On clonidine 0.2 mg bid and Lasix 40 po daily 3. COPD on Rigoberto-Dur, Solu-Medrol and antibiotic. 4. Abdominal pain. Abd US was negative, FU GI 5. Psych issue. FU Dr Bird 6. Dysuria, UA was negative. On Piridium DW RN Subjective Subjective Alert in NAD. No events. On O2 via Nasal Cannula. Placement pending Objective Last 24 Hour Vital Signs Date Time Temp Pulse Resp B/P (MAP) Pulse Ox O2 Delivery O2 Flow Rate FiO2 09/04/19 09:41 122/72 09/04/19 08:07 75 20 99 Nasal Cannula 2.0 28 72 20 97 09/04/19 08:06 97 Nasal Cannula 2.0 28 09/04/19 08:06 72 20 97 Room Air 21 09/04/19 04:00 97.5 69 18 130/69 (89) 95 09/04/19 03:32 77 18 97 Room Air 21 74 18 94 09/04/19 00:00 97.8 83 20 102/64 (77) 93 09/03/19 21:00 Nasal Cannula 2.0 09/03/19 20:50 121/70 09/03/19 20:00 98.7 83 20 121/70 (87) 95 09/03/19 19:48 95 Room Air 09/03/19 19:47 76 17 95 Room Air 21 09/03/19 19:46 78 18 98 Room Air 21 76 16 95 09/03/19 16:04 80 20 98 Nasal Cannula 2.0 28 75 16 97 09/03/19 15:44 97.4 67 20 119/57 (77) 93 Intake and Output 09/03/19 09/04/19 19:00 07:00 Intake Total 1140 ml 800 ml Balance 1140 ml 800 ml Intake Oral 1140 ml 800 ml # Voids 6 3 # Bowel Movements 2 Objective HEAD AND NECK: No JVD. LUNGS: Decreased breath sounds with rhonchi. CARDIOVASCULAR: Regular S1 and S2 with no gallop. ABDOMEN: Soft. EXTREMITIES: Bilateral 2+ pitting edema Robbin Sinha MD Sep 04, 2019 13:29
[2019-09-04 16:00] VITALS: BP 118/69
--- NOTE | 2019-09-04 18:00 | NUR ---
NURSE NOTES: Patient resting no concerns at this time,call light within reach.
--- NOTE | 2019-09-04 19:46 | NUR ---
HAND-OFF: Report given to CHAYITOU RN.
--- NOTE | 2019-09-04 19:50 | NUR ---
NURSE NOTES: Patient awake, alert, and verbally responsive with aggressiveness. Breathing unlabored on 2L O2 via NC without distress. Denies pain or discomfort at this time. No IV access, MD aware. Bed placed at the lowest with alarm, brake, and siderails up for safety. Call light placed within reach. Will continue to monitor and provide care as ordered.
[2019-09-04 20:00] VITALS: BP 100/58
[2019-09-04] MEDS: Miralax 17gm pkt ORAL SCH (21:00)
--- NOTE | 2019-09-04 21:15 | Progress Note ---
DATE: 08/14/2019 SUBJECTIVE: This is a male patient who is 79 years old. This patient continues to have some depression, confusion, mood lability. He has a lot of depression, worsened by stress of his medical illness. He has peripheral edema as well as CVA, bacteremia, degenerative disc disease, diverticulosis, elevated LFTs, congestive heart failure, fatty liver. MENTAL STATUS EXAMINATION: This is a 79-year-old male. His appearance is disheveled. Attitude, irritable and agitated. Affect, guarded and restricted. Intellect poor. Mood, depressed and anxious. Motor activity, psychomotor agitation. Attention span is poor. Orientation x2. Speech is low volume, slurred. Thought process, disorganized and illogical. Insight and judgment is poor. DIAGNOSIS: Major depressive disorder, severe, recurrent, without psychotic features. PLAN: Treat the patient with Zoloft 25 mg daily and provided with 20 minutes of cognitive behavioral therapy to help him identify his automatic negative thoughts and help him convert negative thoughts to more positive thoughts to reduce depression, anxiety, and suicidality. Chart reviewed. Discussed with staff. Seen and addressed at the bedside. Misha Bird M.D. DR: HELEN JOB#: [id number] CC:
[2019-09-05] MEDS: Albuterol/Ipratropium 3ml neb HHN SCH ×6 (03:00→23:18)
[2019-09-05 04:00] VITALS: BP 95/50
--- NOTE | 2019-09-05 06:02 | General Progress Note ---
Assessment/Plan Problem List: (1) Fatty liver ICD Codes: K76.0 - Fatty (change of) liver, not elsewhere classified SNOMED: 534868409 (2) CHF (congestive heart failure) ICD Codes: I50.9 - Heart failure, unspecified SNOMED: 55324480 (3) Emphysema ICD Codes: J43.9 - Emphysema SNOMED: 63065447 (4) Tobacco dependence ICD Codes: F17.200 - Nicotine dependence, unspecified, uncomplicated SNOMED: 18439368 (5) DJD (degenerative joint disease) ICD Codes: M19.90 - Unspecified osteoarthritis, unspecified site SNOMED: 058960440 (6) Elevated LFTs ICD Codes: R94.5 - Abnormal results of liver function studies SNOMED: 532818707, 582114521 (7) Diverticulosis ICD Codes: K57.90 - Diverticulosis of intestine, part unspecified, without perforation or abscess without bleeding SNOMED: 622435468 (8) Constipation ICD Codes: K59.00 - Constipation, unspecified SNOMED: 87332116 Status: stable, progressing Assessment/Plan: (1) Constipation ICD Codes: K59.00 - Constipation, unspecified SNOMED: 37132064 (2) Fatty liver ICD Codes: K76.0 - Fatty (change of) liver, not elsewhere classified SNOMED: 529424872 Status: unchanged i. Assessment/Plan Abdominal CT IMPRESSION: Fatty liver. Suggestion of mild fibrosis at the right lung base. Other interstitial opacities nonspecific. Calcified granulomata within the spleen Moderate atherosclerotic vascular disease. Tiny left inguinal hernia containing fat Mild diverticulosis of the colon. Sclerotic appearing femoral heads. Query AVN. Moderate degenerative changes of the spine with severe disease in the lower lumbar spine. OB stool negative stool culture negative repeat labs neg stool ob refused EGD improving lfts fu cardiology Subjective ROS Limited/Unobtainable: Yes Allergies: Coded Allergies: No Known Allergies (Unverified , 08/14/19) Subjective c/o abd pain had BM no bleeding Objective Last 24 Hour Vital Signs Date Time Temp Pulse Resp B/P (MAP) Pulse Ox O2 Delivery O2 Flow Rate FiO2 09/05/19 04:00 97.2 67 18 95/50 (65) 96 09/04/19 23:18 67 16 99 Nasal Cannula 2.0 28 64 16 98 09/04/19 21:00 Nasal Cannula 2.0 09/04/19 21:00 105/43 09/04/19 20:00 97.7 72 19 100/58 (72) 96 09/04/19 19:25 77 18 99 Room Air 21 75 18 96 09/04/19 19:24 96 Room Air 21 09/04/19 19:23 75 18 96 Room Air 21 09/04/19 16:00 98.4 80 20 118/69 (85) 95 09/04/19 14:59 65 20 99 Nasal Cannula 2.0 28 62 20 97 09/04/19 12:00 97.4 83 20 94/66 (75) 93 09/04/19 09:41 122/72 09/04/19 09:00 Nasal Cannula 2.0 09/04/19 08:07 75 20 99 Nasal Cannula 2.0 28 72 20 97 09/04/19 08:06 97 Nasal Cannula 2.0 28 09/04/19 08:06 72 20 97 Room Air 21 09/04/19 08:00 97.8 75 18 120/62 (81) 96 Intake and Output 09/04/19 09/05/19 19:00 07:00 Intake Total 1180 ml Balance 1180 ml Intake Oral 1180 ml # Voids 5 Height (Feet): 6 Height (Inches): 1.00 Weight (Pounds): 174 General Appearance: alert EENT: normal ENT inspection Neck: supple Cardiovascular: normal rate Respiratory/Chest: decreased breath sounds Abdomen: normal bowel sounds, non tender, soft Extremities: non-tender Won Bright MD Sep 05, 2019 06:02
--- NOTE | 2019-09-05 07:30 | NUR ---
HAND-OFF: Report given to OLIVER Cedillo. Plan of care endorsed.
--- NOTE | 2019-09-05 07:35 | NUR ---
NURSE NOTES: Patient awake, alert, and oriented x4. Able to verbalize needs. In bed calm and comfortable. Breathing unlabored on 2L O2 via NC without distress. Denies pain or discomfort at this time. No IV access noted, MD is aware. Bed placed at the lowest with alarm, brake engaged, and siderails up x2 for safety. Call light placed within reach. Will continue to monitor and provide care as ordered.
[2019-09-05 08:00] VITALS: BP 123/76
[2019-09-05] MEDS: Lactulose 10gm/15ml UDC ORAL SCH ×3 (08:16→17:00)
[2019-09-05] MEDS: Aspirin Baby 81mg ORAL SCH (08:16)
[2019-09-05] MEDS: Docusate 100mg cap ORAL SCH ×2 (08:17→17:00)
[2019-09-05] MEDS: Sucralfate 1gm tab ORAL SCH ×3 (08:17→17:00)
[2019-09-05] MEDS: Phenazopyridine 200mg tab ORAL SCH ×3 (08:17→17:00)
[2019-09-05] MEDS: Theophylline ER 100mg ORAL SCH ×2 (08:17→20:20)
[2019-09-05] MEDS: Dronabinol 2.5mg Cap ORAL SCH ×3 (08:17→17:00)
[2019-09-05] MEDS: Tamsulosin 0.4mg cap ORAL SCH (08:17)
[2019-09-05] MEDS: Sertraline 50mg tab ORAL SCH (08:21)
[2019-09-05] MEDS: Heparin 5000 units/ml inj SUBQ SCH ×2 (08:21→20:23)
[2019-09-05] MEDS: Furosemide 40mg tab ORAL SCH (08:22)
[2019-09-05] MEDS: cloNIDine 0.2mg Tab ORAL SCH ×2 (08:50→20:20)
--- NOTE | 2019-09-05 09:09 | General Progress Note ---
Assessment/Plan Problem List: (1) Emphysema ICD Codes: J43.9 - Emphysema SNOMED: 50680358 (2) History of CVA (cerebrovascular accident) ICD Codes: Z86.73 - History of stroke SNOMED: 205213619 Status: stable, progressing Assessment/Plan: pt sdiwt o2 pulm tx psyc cardio eval cbc bmp am aru eval Subjective Constitutional: Reports: weakness Allergies: Coded Allergies: No Known Allergies (Unverified , 08/14/19) All Systems: reviewed and negative except above Subjective o2nc sleepy Objective Last 24 Hour Vital Signs Date Time Temp Pulse Resp B/P (MAP) Pulse Ox O2 Delivery O2 Flow Rate FiO2 09/05/19 08:50 123/76 09/05/19 08:06 67 20 97 Nasal Cannula 2.0 28 09/05/19 08:06 65 20 99 Nasal Cannula 2.0 28 62 20 97 09/05/19 08:05 97 Nasal Cannula 2.0 28 09/05/19 08:00 97.7 69 21 123/76 (92) 97 09/05/19 04:00 97.2 67 18 95/50 (65) 96 09/04/19 23:18 67 16 99 Nasal Cannula 2.0 28 64 16 98 09/04/19 21:00 Nasal Cannula 2.0 09/04/19 21:00 105/43 09/04/19 20:00 97.7 72 19 100/58 (72) 96 09/04/19 19:25 77 18 99 Room Air 21 75 18 96 09/04/19 19:24 96 Room Air 21 09/04/19 19:23 75 18 96 Room Air 21 09/04/19 16:00 98.4 80 20 118/69 (85) 95 09/04/19 14:59 65 20 99 Nasal Cannula 2.0 28 62 20 97 09/04/19 12:00 97.4 83 20 94/66 (75) 93 09/04/19 09:41 122/72 Intake and Output 09/04/19 09/05/19 19:00 07:00 Intake Total 1180 ml 750 ml Balance 1180 ml 750 ml Intake Oral 1180 ml 750 ml # Voids 5 3 Height (Feet): 6 Height (Inches): 1.00 Weight (Pounds): 174 General Appearance: lethargic EENT: normal ENT inspection Neck: normal alignment Cardiovascular: normal peripheral pulses, normal rate, regular rhythm Respiratory/Chest: chest wall non-tender, decreased breath sounds Abdomen: normal bowel sounds, non tender, soft Extremities: normal inspection Edema: no edema noted Arm (L), no edema noted Arm (R), no edema noted Leg (L), no edema noted Leg (R), no edema noted Pedal (L), no edema noted Pedal (R), no edema noted Generalized Neurologic: responsive, motor weakness Skin: normal pigmentation, warm/dry Fred Kay DO Sep 05, 2019 09:09
--- NOTE | 2019-09-05 10:16 | Pulmonology Progress Note ---
Assessment/Plan Assessment/Plan ASSESSMENT COPD exacerbation CHF with diastolic dysfunction HTN emphysema acute bronchitis pulm nodule tobacco abuse hx of cocaine abuse DJD with chronic back pain Hx of CVA abdominal pain fatty liver diverticulosis constipation urinary burning ? UTI PLAN OF CARE MS floor O2 HHN off steroids and empiric abx, SCX if able trial of theophylline a/tussive prn BiPAP at HS and prn - DVT prophylaxis, dianetic counselor on smoking cessation Nicotine patch - declined CT chest with tiny pulm nodules, some disappeared from previous exam diuresis with Lasix, monitor volumes, cardiorenal parameters, BNP trending down ; less BLE edema ECHO with pEF 60% and RVSP of 34 BP management with Clonidine, dose increased by cardio a/plt therapy with ASA, lipid panel bowel regimen pain management urine tox negative GI follows CT of the abdomen and pelvis revealed fatty liver mild diverticulosis of the colon abd US -> No gallstones or biliary ductal dilatation. LFT trending down hepatitis panel negative declined EGD steroids tapered prior GI prophylaxis Carafate added UA negative, UCX with mixed GP organisms, contaminant; symptomatic management, all sx resolved dc plan in progress declined SNF placement, wants to go on the street, lives in the car ARU eval pending case discussed and evaluated by supervising physician Subjective Allergies: Coded Allergies: No Known Allergies (Unverified , 08/14/19) Subjective afebrile, no leukocytosis, no wheezing no signs of resp distress dc planning in progress declined EGD Objective Last 24 Hour Vital Signs Date Time Temp Pulse Resp B/P (MAP) Pulse Ox O2 Delivery O2 Flow Rate FiO2 09/05/19 08:50 123/76 09/05/19 08:06 67 20 97 Nasal Cannula 2.0 28 09/05/19 08:06 65 20 99 Nasal Cannula 2.0 28 62 20 97 09/05/19 08:05 97 Nasal Cannula 2.0 28 09/05/19 08:00 97.7 69 21 123/76 (92) 97 09/05/19 04:00 97.2 67 18 95/50 (65) 96 09/04/19 23:18 67 16 99 Nasal Cannula 2.0 28 64 16 98 09/04/19 21:00 Nasal Cannula 2.0 09/04/19 21:00 105/43 09/04/19 20:00 97.7 72 19 100/58 (72) 96 09/04/19 19:25 77 18 99 Room Air 21 75 18 96 09/04/19 19:24 96 Room Air 21 09/04/19 19:23 75 18 96 Room Air 21 09/04/19 16:00 98.4 80 20 118/69 (85) 95 09/04/19 14:59 65 20 99 Nasal Cannula 2.0 28 62 20 97 09/04/19 12:00 97.4 83 20 94/66 (75) 93 Intake and Output 09/04/19 09/05/19 19:00 07:00 Intake Total 1180 ml 750 ml Balance 1180 ml 750 ml Intake Oral 1180 ml 750 ml # Voids 5 3 Objective General Appearance: no acute distress HEENT: normocephalic, atraumatic, anicteric, mucous membranes moist Respiratory/Chest: no respiratory distress, no accessory muscle use, diminished BS bilaterally Cardiovascular: normal rate, Abdomen: soft, mild diffused tender with mild distention Extremities: pedal pulses normal Neurologic/Psychiatric: no motor/sensory deficits, alert, responsive Musculoskeletal: normal muscle bulk Current Medications Medications (Trade) Dose Ordered Sig/Aguila Route PRN Reason Start Time Stop Time Status Last Admin Dose Admin Acetaminophen (Tylenol) 650 mg Q4H PRN ORAL Mild Pain/Temp > 100.5 08/21/19 16:08 09/13/19 16:07 08/24/19 17:34 Albuterol/ Ipratropium (Albuterol/ Ipratropium) 3 ml Q4HRT HHN 09/03/19 07:00 09/08/19 06:59 09/05/19 08:04 Aspirin (ASA) 81 mg DAILY ORAL 08/22/19 09:00 09/13/19 11:14 09/05/19 08:16 Clonidine HCl (Catapres tab) 0.2 mg Q12HR ORAL 08/21/19 21:00 09/16/19 20:59 09/04/19 09:41 Dextrose (Dextrose 50%) 25 ml Q30M PRN IV Hypoglycemia 08/21/19 16:08 09/13/19 16:07 Dextrose (Dextrose 50%) 50 ml Q30M PRN IV Hypoglycemia 08/21/19 16:09 09/13/19 16:08 Docusate Sodium (Colace) 100 mg TWICE A DAY ORAL 08/21/19 18:00 09/16/19 08:59 09/05/19 08:17 Dronabinol (Marinol) 2.5 mg TID ORAL 08/21/19 18:00 09/15/19 12:59 09/05/19 08:17 Furosemide (Lasix) 40 mg DAILY ORAL 08/28/19 09:00 09/27/19 08:59 09/04/19 09:42 Heparin Sodium (Porcine) (Heparin 5000 units/ml) 5,000 units EVERY 12 HOURS SUBQ 08/22/19 09:00 09/13/19 08:59 09/05/19 08:21 Lactulose (Cephulac) 10 gm THREE TIMES A DAY ORAL 08/21/19 18:00 09/17/19 08:59 09/05/19 08:16 Nitroglycerin (Ntg) 0.4 mg Q5M X 3 DOSES PRN SL Prn Chest Pain 08/21/19 16:00 09/13/19 06:44 Ondansetron HCl (Zofran) 4 mg Q6H PRN IVP Nausea & Vomiting 08/21/19 16:10 09/13/19 16:09 Pantoprazole (Protonix) 40 mg DAILY ORAL 08/23/19 09:00 09/22/19 08:59 09/05/19 08:16 Phenazopyridine HCl (Pyridium) 200 mg THREE TIMES A DAY ORAL 08/31/19 16:06 09/30/19 16:05 09/05/19 08:17 Polyethylene Glycol (Miralax) 17 gm BEDTIME ORAL 08/21/19 21:00 09/17/19 20:59 08/27/19 22:50 Promethazine HCl/ Codeine (Phenergan with Codeine) 5 ml Q6H PRN ORAL cough 08/21/19 16:10 09/13/19 16:09 09/03/19 04:40 Sertraline HCl (Zoloft) 25 mg DAILY ORAL 08/22/19 09:00 09/15/19 08:59 09/03/19 08:32 Simethicone (Mylicon) 80 mg Q6H PRN ORAL Abdominal cramps 08/21/19 20:00 09/19/19 07:59 Sucralfate (Carafate) 1 gm TID ORAL 08/21/19 18:00 09/19/19 08:59 09/05/19 08:17 Tamsulosin HCl (Flomax) 0.4 mg DAILY ORAL 08/31/19 16:15 09/30/19 16:14 09/05/19 08:17 Theophylline (Rigoberto-Dur) 100 mg EVERY 12 HOURS ORAL 08/21/19 21:00 09/13/19 08:59 09/05/19 08:17 Mariana [place] [employer] Sep 05, 2019 10:16
[2019-09-05 12:00] VITALS: BP 110/66
[2019-09-05 16:00] VITALS: BP 132/96
--- NOTE | 2019-09-05 18:59 | NUR ---
HAND-OFF: Report given to Janice.
--- NOTE | 2019-09-05 19:30 | NUR ---
NURSE NOTES: Received patient in room chair. A/O x4. Patient is ambulatory. On room air, respirations unlabored. No IV access, MD aware per previous nurse. Patient denies pain. Call light within reach, non-skid socks in place.
[2019-09-05 20:00] VITALS: BP 119/65
[2019-09-05] MEDS: Miralax 17gm pkt ORAL SCH (21:00)
[2019-09-06] VITALS: BP 112/65
--- NOTE | 2019-09-06 02:00 | Progress Note ---
DATE: 09/05/2019 SUBJECTIVE: The patient is a 79-year-old male with COPD. He still has some depression worsened by stress of his medical illness. He . DIAGNOSIS: Major depressive disorder, mild, recurrent without psychotic features. PLAN: Treat him with Zoloft 25 mg a day. A 20 minutes of cognitive behavioral therapy to help him identify his automatic negative thoughts and help him convert those negative thoughts to more positive thoughts to reduce depression, anxiety, and mood lability. Chart reviewed. Discussed with staff. Seen and assessed at bedside. Misha Bird M.D. DR: CORINE JOB#: [id number] CC:
[2019-09-06] MEDS: Albuterol/Ipratropium 3ml neb HHN SCH ×6 (02:09→23:00)
[2019-09-06 04:00] VITALS: BP 134/76
--- NOTE | 2019-09-06 07:20 | NUR ---
HAND-OFF: Report given to Asya OLMOS.
--- NOTE | 2019-09-06 07:42 | NUR ---
nurse notes received patient resting comfortably in bed , patient awake alert , oriented x4,no sign of distress, O2 at 2LPM via NC,denies pain or discomfort, on fall precaution, plan of care was discussed verbalized understanding 4 P's in progress call light w/n reach , will continue to monitor patient condition nathan wade
[2019-09-06 08:00] VITALS: BP_SYST 113; BP_SYST 134; BP_DIAS 76
[2019-09-06] MEDS: Phenazopyridine 200mg tab ORAL SCH ×3 (08:26→17:21)
[2019-09-06] MEDS: Theophylline ER 100mg ORAL SCH ×2 (08:26→20:32)
[2019-09-06] MEDS: Tamsulosin 0.4mg cap ORAL SCH (08:26)
[2019-09-06] MEDS: Dronabinol 2.5mg Cap ORAL SCH ×3 (08:26→17:21)
[2019-09-06] MEDS: Aspirin Baby 81mg ORAL SCH (08:27)
[2019-09-06] MEDS: Furosemide 40mg tab ORAL SCH (08:27)
[2019-09-06] MEDS: Sucralfate 1gm tab ORAL SCH ×3 (08:27→17:21)
[2019-09-06] MEDS: cloNIDine 0.2mg Tab ORAL SCH ×2 (08:27→20:32)
[2019-09-06] MEDS: Lactulose 10gm/15ml UDC ORAL SCH ×3 (08:27→17:21)
[2019-09-06] MEDS: Docusate 100mg cap ORAL SCH ×2 (08:28→17:21)
[2019-09-06] MEDS: Sertraline 50mg tab ORAL SCH (08:28)
[2019-09-06] MEDS: Heparin 5000 units/ml inj SUBQ SCH ×2 (08:33→20:34)
[2019-09-06 08:53] LABS: BASOPHILS % (AUTO) 2.1 % (0.0-2.0); EOSINOPHILS % (AUTO) 6.1 % (0.0-3.0); HEMATOCRIT 32.5 % (42.0-52.0); HEMOGLOBIN 11.4 G/DL (14.2-18.0); LYMPHOCYTES % (AUTO) 26.2 % (20.0-45.0); MEAN CORPUSCULAR VOLUME 95 FL (80-99); MONOCYTES % (AUTO) 10.4 % (1.0-10.0); NEUTROPHILS % (AUTO) 55.2 % (45.0-75.0); PLATELET COUNT 116 K/UL (150-450); RED BLOOD COUNT 3.43 M/UL (4.70-6.10); RED CELL DISTRIBUTION WIDTH 13.2 % (11.6-14.8); WHITE BLOOD COUNT 4.8 K/UL (4.8-10.8)
[2019-09-06 09:00] LABS: ANION GAP 7 mmol/L (5-15); BLOOD UREA NITROGEN 10 mg/dL (7-18); CALCIUM 8.9 MG/DL (8.5-10.1); CARBON DIOXIDE 29 MMOL/L (21-32); CHLORIDE 104 MMOL/L (98-107); CREATININE 0.6 MG/DL (0.55-1.30); POTASSIUM 4.5 MMOL/L (3.5-5.1); SODIUM 140 MMOL/L (136-145)
--- NOTE | 2019-09-06 09:44 | General Progress Note ---
Assessment/Plan Problem List: (1) Fatty liver ICD Codes: K76.0 - Fatty (change of) liver, not elsewhere classified SNOMED: 628184871 (2) CHF (congestive heart failure) ICD Codes: I50.9 - Heart failure, unspecified SNOMED: 87979012 (3) Emphysema ICD Codes: J43.9 - Emphysema SNOMED: 80342883 (4) Tobacco dependence ICD Codes: F17.200 - Nicotine dependence, unspecified, uncomplicated SNOMED: 74512802 (5) DJD (degenerative joint disease) ICD Codes: M19.90 - Unspecified osteoarthritis, unspecified site SNOMED: 611117528 (6) Elevated LFTs ICD Codes: R94.5 - Abnormal results of liver function studies SNOMED: 120623364, 614583957 (7) Diverticulosis ICD Codes: K57.90 - Diverticulosis of intestine, part unspecified, without perforation or abscess without bleeding SNOMED: 302904181 (8) Constipation ICD Codes: K59.00 - Constipation, unspecified SNOMED: 97482637 Status: stable, progressing Assessment/Plan: (1) Constipation ICD Codes: K59.00 - Constipation, unspecified SNOMED: 20085884 (2) Fatty liver ICD Codes: K76.0 - Fatty (change of) liver, not elsewhere classified SNOMED: 723271992 Status: unchanged i. Assessment/Plan Abdominal CT IMPRESSION: Fatty liver. Suggestion of mild fibrosis at the right lung base. Other interstitial opacities nonspecific. Calcified granulomata within the spleen Moderate atherosclerotic vascular disease. Tiny left inguinal hernia containing fat Mild diverticulosis of the colon. Sclerotic appearing femoral heads. Query AVN. Moderate degenerative changes of the spine with severe disease in the lower lumbar spine. OB stool negative stool culture negative repeat labs neg stool ob refused EGD improving lfts fu cardiology Subjective ROS Limited/Unobtainable: Yes Allergies: Coded Allergies: No Known Allergies (Unverified , 08/14/19) Subjective c/o abd pain had BM no bleeding Objective Last 24 Hour Vital Signs Date Time Temp Pulse Resp B/P (MAP) Pulse Ox O2 Delivery O2 Flow Rate FiO2 09/06/19 08:50 Room Air 09/06/19 08:27 134/76 09/06/19 08:00 97.8 80 18 113/76 (88) 99 09/06/19 04:00 97.3 63 21 134/76 (95) 99 09/06/19 00:00 97.0 67 21 112/65 (81) 94 09/05/19 23:18 70 20 96 Nasal Cannula 2.0 28 66 20 92 09/05/19 21:00 Room Air 09/05/19 20:20 119/65 09/05/19 20:00 97.7 98 20 119/65 (83) 95 09/05/19 19:40 83 20 98 Nasal Cannula 2.0 28 81 20 95 09/05/19 19:39 81 18 95 Nasal Cannula 2.0 28 09/05/19 19:39 95 Nasal Cannula 2.0 28 09/05/19 16:00 96.7 108 20 132/96 (108) 94 09/05/19 15:18 74 20 99 Nasal Cannula 2.0 28 72 20 95 09/05/19 12:00 97.1 88 19 110/66 (81) 93 Intake and Output 09/05/19 09/06/19 19:00 07:00 Intake Total 720 ml Output Total 4 ml Balance 720 ml -4 ml Intake Oral 720 ml Output Urine Total 4 ml # Voids 4 Laboratory Tests 09/06/19 08:20: White Blood Count 4.8, Red Blood Count 3.43L, Hemoglobin 11.4L, Hematocrit 32.5L , Mean Corpuscular Volume 95, Mean Corpuscular Hemoglobin 33.1H, Mean Corpuscular Hemoglobin Concent 34.9, Red Cell Distribution Width 13.2, Platelet Count 116L, Mean Platelet Volume 5.9L, Neutrophils (%) (Auto) 55.2, Lymphocytes (%) (Auto) 26.2, Monocytes (%) (Auto) 10.4H, Eosinophils (%) (Auto) 6.1H, Basophils (%) (Auto) 2.1H, Sodium Level 140, Potassium Level 4.5, Chloride Level 104, Carbon Dioxide Level 29, Anion Gap 7, Blood Urea Nitrogen 10, Creatinine 0.6, Estimat Glomerular Filtration Rate > 60, Glucose Level 93, Calcium Level 8.9 Height (Feet): 6 Height (Inches): 1.00 Weight (Pounds): 174 General Appearance: alert EENT: normal ENT inspection Neck: supple Cardiovascular: normal rate Respiratory/Chest: decreased breath sounds Abdomen: normal bowel sounds, non tender, soft Extremities: non-tender Won Bright MD Sep 06, 2019 09:44
--- NOTE | 2019-09-06 10:31 | Cardiac Electrophysiology PN ---
Assessment/Plan Assessment/Plan 1. Bilateral LE edema and SOB due to CHF due to diastolic dysfunction, EF 60% BNP decreased from 2500 to 1729 on Lasix 40 po daily 2. HTN. On clonidine 0.2 mg bid and Lasix 40 po daily 3. COPD on Rigoberto-Dur, Solu-Medrol and antibiotic. 4. Abdominal pain. Abd US was negative, FU GI 5. Psych issue. FU Dr Bird 6. Dysuria, UA was negative. On Piridium DW RN Subjective Subjective Alert in NAD. No events. noncompliant.Placement pending Objective Last 24 Hour Vital Signs Date Time Temp Pulse Resp B/P (MAP) Pulse Ox O2 Delivery O2 Flow Rate FiO2 09/06/19 10:18 89 18 97 Nasal Cannula 2.0 28 86 16 98 09/06/19 10:18 98 Nasal Cannula 2.0 28 09/06/19 10:18 65 16 98 Nasal Cannula 2.0 28 09/06/19 08:50 Room Air 09/06/19 08:27 134/76 09/06/19 08:00 97.8 80 18 113/76 (88) 99 09/06/19 04:00 97.3 63 21 134/76 (95) 99 09/06/19 00:00 97.0 67 21 112/65 (81) 94 09/05/19 23:18 70 20 96 Nasal Cannula 2.0 28 66 20 92 09/05/19 21:00 Room Air 09/05/19 20:20 119/65 09/05/19 20:00 97.7 98 20 119/65 (83) 95 09/05/19 19:40 83 20 98 Nasal Cannula 2.0 28 81 20 95 09/05/19 19:39 81 18 95 Nasal Cannula 2.0 28 09/05/19 19:39 95 Nasal Cannula 2.0 28 09/05/19 16:00 96.7 108 20 132/96 (108) 94 09/05/19 15:18 74 20 99 Nasal Cannula 2.0 28 72 20 95 09/05/19 12:00 97.1 88 19 110/66 (81) 93 Intake and Output 09/05/19 09/06/19 19:00 07:00 Intake Total 720 ml Output Total 4 ml Balance 720 ml -4 ml Intake Oral 720 ml Output Urine Total 4 ml # Voids 4 Laboratory Tests Test 09/06/19 08:20 White Blood Count 4.8 K/UL (4.8-10.8) Red Blood Count 3.43 M/UL (4.70-6.10) L Hemoglobin 11.4 G/DL (14.2-18.0) L Hematocrit 32.5 % (42.0-52.0) L Mean Corpuscular Volume 95 FL (80-99) Mean Corpuscular Hemoglobin 33.1 PG (27.0-31.0) H Mean Corpuscular Hemoglobin Concent 34.9 G/DL (32.0-36.0) Red Cell Distribution Width 13.2 % (11.6-14.8) Platelet Count 116 K/UL (150-450) L Mean Platelet Volume 5.9 FL (6.5-10.1) L Neutrophils (%) (Auto) 55.2 % (45.0-75.0) Lymphocytes (%) (Auto) 26.2 % (20.0-45.0) Monocytes (%) (Auto) 10.4 % (1.0-10.0) H Eosinophils (%) (Auto) 6.1 % (0.0-3.0) H Basophils (%) (Auto) 2.1 % (0.0-2.0) H Sodium Level 140 MMOL/L (136-145) Potassium Level 4.5 MMOL/L (3.5-5.1) Chloride Level 104 MMOL/L (98-107) Carbon Dioxide Level 29 MMOL/L (21-32) Anion Gap 7 mmol/L (5-15) Blood Urea Nitrogen 10 mg/dL (7-18) Creatinine 0.6 MG/DL (0.55-1.30) Estimat Glomerular Filtration Rate > 60 mL/min (>60) Glucose Level 93 MG/DL (74-106) Calcium Level 8.9 MG/DL (8.5-10.1) Objective HEAD AND NECK: No JVD. LUNGS: Decreased breath sounds with rhonchi. CARDIOVASCULAR: Regular S1 and S2 with no gallop. ABDOMEN: Soft. EXTREMITIES: Bilateral 2+ pitting edema Robbin Sinha MD Sep 06, 2019 10:31
--- NOTE | 2019-09-06 10:32 | General Progress Note ---
Assessment/Plan Problem List: (1) Emphysema ICD Codes: J43.9 - Emphysema SNOMED: 56750150 (2) History of CVA (cerebrovascular accident) ICD Codes: Z86.73 - History of stroke SNOMED: 950409660 Status: stable, progressing Assessment/Plan: pt sdiwt o2 pulm tx psyc cardio eval cbc bmp am aru eval Subjective Constitutional: Reports: weakness Allergies: Coded Allergies: No Known Allergies (Unverified , 08/14/19) All Systems: reviewed and negative except above Subjective o2nc sleepy Objective Last 24 Hour Vital Signs Date Time Temp Pulse Resp B/P (MAP) Pulse Ox O2 Delivery O2 Flow Rate FiO2 09/06/19 10:18 89 18 97 Nasal Cannula 2.0 28 86 16 98 09/06/19 10:18 98 Nasal Cannula 2.0 28 09/06/19 10:18 65 16 98 Nasal Cannula 2.0 28 09/06/19 08:50 Room Air 09/06/19 08:27 134/76 09/06/19 08:00 97.8 80 18 113/76 (88) 99 09/06/19 04:00 97.3 63 21 134/76 (95) 99 09/06/19 00:00 97.0 67 21 112/65 (81) 94 09/05/19 23:18 70 20 96 Nasal Cannula 2.0 28 66 20 92 09/05/19 21:00 Room Air 09/05/19 20:20 119/65 09/05/19 20:00 97.7 98 20 119/65 (83) 95 09/05/19 19:40 83 20 98 Nasal Cannula 2.0 28 81 20 95 09/05/19 19:39 81 18 95 Nasal Cannula 2.0 28 09/05/19 19:39 95 Nasal Cannula 2.0 28 09/05/19 16:00 96.7 108 20 132/96 (108) 94 09/05/19 15:18 74 20 99 Nasal Cannula 2.0 28 72 20 95 09/05/19 12:00 97.1 88 19 110/66 (81) 93 Intake and Output 09/05/19 09/06/19 19:00 07:00 Intake Total 720 ml Output Total 4 ml Balance 720 ml -4 ml Intake Oral 720 ml Output Urine Total 4 ml # Voids 4 Laboratory Tests 09/06/19 08:20: White Blood Count 4.8, Red Blood Count 3.43L, Hemoglobin 11.4L, Hematocrit 32.5L , Mean Corpuscular Volume 95, Mean Corpuscular Hemoglobin 33.1H, Mean Corpuscular Hemoglobin Concent 34.9, Red Cell Distribution Width 13.2, Platelet Count 116L, Mean Platelet Volume 5.9L, Neutrophils (%) (Auto) 55.2, Lymphocytes (%) (Auto) 26.2, Monocytes (%) (Auto) 10.4H, Eosinophils (%) (Auto) 6.1H, Basophils (%) (Auto) 2.1H, Sodium Level 140, Potassium Level 4.5, Chloride Level 104, Carbon Dioxide Level 29, Anion Gap 7, Blood Urea Nitrogen 10, Creatinine 0.6, Estimat Glomerular Filtration Rate > 60, Glucose Level 93, Calcium Level 8.9 Height (Feet): 6 Height (Inches): 1.00 Weight (Pounds): 174 General Appearance: lethargic EENT: normal ENT inspection Neck: normal alignment Cardiovascular: normal peripheral pulses, normal rate, regular rhythm Respiratory/Chest: chest wall non-tender, lungs clear, normal breath sounds Abdomen: normal bowel sounds, non tender, soft Extremities: normal inspection Edema: no edema noted Arm (L), no edema noted Arm (R), no edema noted Leg (L), no edema noted Leg (R), no edema noted Pedal (L), no edema noted Pedal (R), no edema noted Generalized Neurologic: responsive, motor weakness Skin: normal pigmentation, warm/dry Fred Kay DO Sep 06, 2019 10:32
[2019-09-06 12:01] VITALS: BP 119/79
--- NOTE | 2019-09-06 14:05 | Pulmonology Progress Note ---
Assessment/Plan Problems: (1) Acute exacerbation of chronic obstructive airways disease (2) Acute bronchitis (3) Pulmonary nodule (4) Emphysema (5) Peripheral neuropathy (6) History of cocaine abuse (7) Chronic back pain (8) DJD (degenerative joint disease) Assessment/Plan less short of breath did physical therapy , c/o weakness no new complains med/surg slightly better EF: 60% respiratory treatment symptomatic treatment placement in process Subjective ROS Limited/Unobtainable: No Constitutional: Reports: no symptoms HEENT: Repors: no symptoms Allergies: Coded Allergies: No Known Allergies (Unverified , 08/14/19) Objective Last 24 Hour Vital Signs Date Time Temp Pulse Resp B/P (MAP) Pulse Ox O2 Delivery O2 Flow Rate FiO2 09/06/19 12:01 97.8 76 18 119/79 (92) 99 09/06/19 10:18 89 18 97 Nasal Cannula 2.0 28 86 16 98 09/06/19 10:18 98 Nasal Cannula 2.0 28 09/06/19 10:18 65 16 98 Nasal Cannula 2.0 28 09/06/19 08:50 Room Air 09/06/19 08:27 134/76 09/06/19 08:00 97.8 80 18 113/76 (88) 99 09/06/19 04:00 97.3 63 21 134/76 (95) 99 09/06/19 00:00 97.0 67 21 112/65 (81) 94 09/05/19 23:18 70 20 96 Nasal Cannula 2.0 28 66 20 92 09/05/19 21:00 Room Air 09/05/19 20:20 119/65 09/05/19 20:00 97.7 98 20 119/65 (83) 95 09/05/19 19:40 83 20 98 Nasal Cannula 2.0 28 81 20 95 09/05/19 19:39 81 18 95 Nasal Cannula 2.0 28 09/05/19 19:39 95 Nasal Cannula 2.0 28 09/05/19 16:00 96.7 108 20 132/96 (108) 94 09/05/19 15:18 74 20 99 Nasal Cannula 2.0 28 72 20 95 Intake and Output 09/05/19 09/06/19 18:59 06:59 Intake Total 720 ml Output Total 4 ml Balance 720 ml -4 ml Intake Oral 720 ml Output Urine Total 4 ml # Voids 4 Objective General Appearance: WN, WD, WH Lines, tubes and drains: peripheral HEENT: normocephalic, atraumatic Neck: non-tender, normal alignment Respiratory/Chest: chest wall non-tender, rhonchi - right, expiratory wheezing Breasts: no masses Cardiovascular/Chest: normal peripheral pulses Abdomen: normal bowel sounds, non tender, hyperactive bowel sounds Extremities: normal range of motion Laboratory Tests 09/06/19 08:20: White Blood Count 4.8, Red Blood Count 3.43L, Hemoglobin 11.4L, Hematocrit 32.5L , Mean Corpuscular Volume 95, Mean Corpuscular Hemoglobin 33.1H, Mean Corpuscular Hemoglobin Concent 34.9, Red Cell Distribution Width 13.2, Platelet Count 116L, Mean Platelet Volume 5.9L, Neutrophils (%) (Auto) 55.2, Lymphocytes (%) (Auto) 26.2, Monocytes (%) (Auto) 10.4H, Eosinophils (%) (Auto) 6.1H, Basophils (%) (Auto) 2.1H, Sodium Level 140, Potassium Level 4.5, Chloride Level 104, Carbon Dioxide Level 29, Anion Gap 7, Blood Urea Nitrogen 10, Creatinine 0.6, Estimat Glomerular Filtration Rate > 60, Glucose Level 93, Calcium Level 8.9 Current Medications Medications (Trade) Dose Ordered Sig/Aguila Route PRN Reason Start Time Stop Time Status Last Admin Dose Admin Acetaminophen (Tylenol) 650 mg Q4H PRN ORAL Mild Pain/Temp > 100.5 08/21/19 16:08 09/13/19 16:07 08/24/19 17:34 Albuterol/ Ipratropium (Albuterol/ Ipratropium) 3 ml Q4HRT HHN 09/03/19 07:00 09/08/19 06:59 09/06/19 10:18 Aspirin (ASA) 81 mg DAILY ORAL 08/22/19 09:00 09/13/19 11:14 09/06/19 08:27 Clonidine HCl (Catapres tab) 0.2 mg Q12HR ORAL 08/21/19 21:00 09/16/19 20:59 09/06/19 08:27 Dextrose (Dextrose 50%) 25 ml Q30M PRN IV Hypoglycemia 08/21/19 16:08 09/13/19 16:07 Dextrose (Dextrose 50%) 50 ml Q30M PRN IV Hypoglycemia 08/21/19 16:09 09/13/19 16:08 Docusate Sodium (Colace) 100 mg TWICE A DAY ORAL 08/21/19 18:00 09/16/19 08:59 09/05/19 17:00 Dronabinol (Marinol) 2.5 mg TID ORAL 08/21/19 18:00 09/15/19 12:59 09/06/19 12:18 Furosemide (Lasix) 40 mg DAILY ORAL 08/28/19 09:00 09/27/19 08:59 09/06/19 08:27 Heparin Sodium (Porcine) (Heparin 5000 units/ml) 5,000 units EVERY 12 HOURS SUBQ 08/22/19 09:00 09/13/19 08:59 09/06/19 08:33 Lactulose (Cephulac) 10 gm THREE TIMES A DAY ORAL 08/21/19 18:00 09/17/19 08:59 09/05/19 17:00 Nitroglycerin (Ntg) 0.4 mg Q5M X 3 DOSES PRN SL Prn Chest Pain 08/21/19 16:00 09/13/19 06:44 Ondansetron HCl (Zofran) 4 mg Q6H PRN IVP Nausea & Vomiting 08/21/19 16:10 09/13/19 16:09 Pantoprazole (Protonix) 40 mg DAILY ORAL 08/23/19 09:00 09/22/19 08:59 09/06/19 08:27 Phenazopyridine HCl (Pyridium) 200 mg THREE TIMES A DAY ORAL 08/31/19 16:06 09/30/19 16:05 09/06/19 12:18 Polyethylene Glycol (Miralax) 17 gm BEDTIME ORAL 08/21/19 21:00 09/17/19 20:59 08/27/19 22:50 Promethazine HCl/ Codeine (Phenergan with Codeine) 5 ml Q6H PRN ORAL cough 08/21/19 16:10 09/13/19 16:09 09/03/19 04:40 Sertraline HCl (Zoloft) 25 mg DAILY ORAL 08/22/19 09:00 09/15/19 08:59 09/03/19 08:32 Simethicone (Mylicon) 80 mg Q6H PRN ORAL Abdominal cramps 08/21/19 20:00 09/19/19 07:59 Sucralfate (Carafate) 1 gm TID ORAL 08/21/19 18:00 09/19/19 08:59 09/06/19 12:19 Tamsulosin HCl (Flomax) 0.4 mg DAILY ORAL 08/31/19 16:15 09/30/19 16:14 09/06/19 08:26 Theophylline (Rigoberto-Dur) 100 mg EVERY 12 HOURS ORAL 08/21/19 21:00 09/13/19 08:59 09/06/19 08:26 Farhan Ortega MD Sep 06, 2019 14:05
--- NOTE | 2019-09-06 15:15 | Progress Note ---
DATE: 09/06/2019 SUBJECTIVE: This is a 79-year-old male with COPD. He still has increased anxiety and depression, worsened by stress of his medical illness. That is why, his attending has requested daily psychiatric consultation. DIAGNOSIS: Major depressive disorder, mild, recurrent, without psychotic features. PLAN: Treat him with the medication regimen, Zoloft 25 mg a day. A 20 minutes of cognitive behavioral therapy to help him identify his automatic negative thoughts and help him convert those negative thoughts to more positive thoughts to reduce depression, anxiety, and mood lability. Chart reviewed. Discussed with staff. Seen and assessed at bedside. Misha Bird M.D. DR: AMOL JOB#: [id number] CC:
--- NOTE | 2019-09-06 15:26 | NUR ---
RD ASSESSMENT & RECOMMENDATIONS SEE CARE ACTIVITY FOR COMPLETE ASSESSMENT DAILY ESTIMATED NEEDS: Needs based on Liver, cardiac/ 82kg 25-30 kcals/kg 7624-8469 total kcals 1-1.3 g protein/kg 82-107 g total protein 20-25 mL/kg 5430-8107 total fluid mLs NUTRITION DIAGNOSIS: (1) Decreased sodium needs R/T cardiac hx, liver dysfunction as evidenced by h/o CHF w/ elev BNP (1729), on diuretics, h/o CVA, elev AST CURRENT DIET:REGULAR PO DIET RECOMMENDATIONS: Low Sodium/ texture as tolerated ADDITIONAL RECOMMENDATIONS: * Daily standing wt monitoring (CHF dx, on lasix) * Monitor lytes closely w/ Lasix, replete as needed * K now elevated, monitor trend, need for dietary restriction - K now wnl
[2019-09-06 16:12] VITALS: BP 119/79
--- NOTE | 2019-09-06 19:20 | NUR ---
NURSE NOTES: Received report from Asya OLMOS. Patient is in bed, Awake A/O x4. On NC 2 lpm. Patient denies pain at this time. No IV access. 1.2 side rails up, laying in high-fowlers. Bed at the lowest position, Call light within reach.
--- NOTE | 2019-09-06 19:20 | NUR ---
HAND-OFF: Report given to NICKOLAS Leavitt PATIENT RESTING COMFORTABLY NICKOLAS CONTEH.
[2019-09-06 20:00] VITALS: BP 107/60
[2019-09-06] MEDS: Miralax 17gm pkt ORAL SCH (21:00)
[2019-09-07] VITALS: BP 112/69
[2019-09-07] MEDS: Albuterol/Ipratropium 3ml neb HHN SCH ×6 (04:04→23:18)
--- NOTE | 2019-09-07 07:25 | NUR ---
HAND-OFF: Report given to Asya OLMOS.
[2019-09-07 08:05] VITALS: BP 107/57
[2019-09-07] MEDS: cloNIDine 0.2mg Tab ORAL SCH ×2 (08:10→21:02)
[2019-09-07] MEDS: Theophylline ER 100mg ORAL SCH ×2 (08:10→21:02)
[2019-09-07] MEDS: Dronabinol 2.5mg Cap ORAL SCH ×3 (08:11→17:12)
[2019-09-07] MEDS: Phenazopyridine 200mg tab ORAL SCH ×3 (08:11→17:12)
[2019-09-07] MEDS: Sucralfate 1gm tab ORAL SCH ×3 (08:11→17:11)
[2019-09-07] MEDS: Aspirin Baby 81mg ORAL SCH (08:11)
[2019-09-07] MEDS: Tamsulosin 0.4mg cap ORAL SCH (08:11)
[2019-09-07] MEDS: Furosemide 40mg tab ORAL SCH (08:12)
[2019-09-07] MEDS: Lactulose 10gm/15ml UDC ORAL SCH ×3 (08:12→17:12)
[2019-09-07] MEDS: Sertraline 50mg tab ORAL SCH (08:12)
[2019-09-07] MEDS: Docusate 100mg cap ORAL SCH ×2 (08:12→17:12)
[2019-09-07] MEDS: Heparin 5000 units/ml inj SUBQ SCH ×2 (08:16→21:06)
[2019-09-07 09:45] LABS: BASOPHILS % (AUTO) 3.3 % (0.0-2.0); EOSINOPHILS % (AUTO) 8.5 % (0.0-3.0); HEMATOCRIT 31.7 % (42.0-52.0); HEMOGLOBIN 11.1 G/DL (14.2-18.0); MEAN CORPUSCULAR VOLUME 93 FL (80-99); MONOCYTES % (AUTO) 8.2 % (1.0-10.0); PLATELET COUNT 112 K/UL (150-450); RED BLOOD COUNT 3.39 M/UL (4.70-6.10); RED CELL DISTRIBUTION WIDTH 13.8 % (11.6-14.8); WHITE BLOOD COUNT 4.8 K/UL (4.8-10.8)
[2019-09-07 10:02] LABS: ALANINE AMINOTRANSFERASE 23 U/L (12-78); ALBUMIN 3.1 G/DL (3.4-5.0); ALBUMIN/GLOBULIN RATIO 0.9 (1.0-2.7); ALKALINE PHOSPHATASE 42 U/L (46-116); ANION GAP 8 mmol/L (5-15); ASPARTATE AMINO TRANSFERASE 15 U/L (15-37); BILIRUBIN,TOTAL 0.3 MG/DL (0.2-1.0); BLOOD UREA NITROGEN 13 mg/dL (7-18); CARBON DIOXIDE 29 MMOL/L (21-32); CHLORIDE 101 MMOL/L (98-107); CREATININE 0.7 MG/DL (0.55-1.30); POTASSIUM 3.9 MMOL/L (3.5-5.1); SODIUM 138 MMOL/L (136-145)
--- NOTE | 2019-09-07 11:01 | GI Progress Note ---
Assessment/Plan Problems: (1) Constipation ICD Codes: K59.00 - Constipation, unspecified SNOMED: 44500055 (2) Fatty liver ICD Codes: K76.0 - Fatty (change of) liver, not elsewhere classified SNOMED: 110073253 Status: unchanged Status Narrative Discussed with Dr. Bright. Assessment/Plan Abdominal CT IMPRESSION: Fatty liver. Suggestion of mild fibrosis at the right lung base. Other interstitial opacities nonspecific. Calcified granulomata within the spleen Moderate atherosclerotic vascular disease. Tiny left inguinal hernia containing fat Mild diverticulosis of the colon. Sclerotic appearing femoral heads. Query AVN. Moderate degenerative changes of the spine with severe disease in the lower lumbar spine. OB stool negative stool culture negative hepatitis panel negative utox positive for marijuana dc planning refused EGD advance diet patient non-compliant LFTs improved The patient was seen and examined at bedside and all new and available data was reviewed in the patients chart. I agree with the above findings, impression and plan. (Patient seen earlier today. Signature stamp does not reflect patient encounter time.). - Won Bright MD Subjective Gastrointestinal/Abdominal: Reports: no symptoms Subjective thirsty Objective Last 24 Hour Vital Signs Date Time Temp Pulse Resp B/P (MAP) Pulse Ox O2 Delivery O2 Flow Rate FiO2 09/07/19 08:42 71 18 99 Nasal Cannula 2.0 28 65 18 95 09/07/19 08:40 Room Air 09/07/19 08:10 112/69 09/07/19 08:05 97.4 68 17 107/57 (74) 99 09/07/19 07:43 95 Nasal Cannula 2.0 28 09/07/19 07:43 65 18 95 Nasal Cannula 2.0 28 09/07/19 03:55 88 18 99 Nasal Cannula 2.0 28 89 16 98 09/07/19 00:00 98.3 79 22 112/69 (83) 96 09/06/19 21:00 Room Air 09/06/19 20:32 107/60 09/06/19 20:00 97.9 65 20 107/60 (76) 97 09/06/19 19:00 69 16 98 Nasal Cannula 2.0 28 09/06/19 19:00 98 Nasal Cannula 2.0 28 09/06/19 16:12 97.8 76 18 119/79 (92) 99 09/06/19 12:01 97.8 76 18 119/79 (92) 99 Intake and Output 09/06/19 09/07/19 19:00 07:00 Intake Total 1800 ml Balance 1800 ml Other 1800 ml # Voids 4 Laboratory Tests Test 09/07/19 08:45 White Blood Count 4.8 K/UL (4.8-10.8) Red Blood Count 3.39 M/UL (4.70-6.10) L Hemoglobin 11.1 G/DL (14.2-18.0) L Hematocrit 31.7 % (42.0-52.0) L Mean Corpuscular Volume 93 FL (80-99) Mean Corpuscular Hemoglobin 32.6 PG (27.0-31.0) H Mean Corpuscular Hemoglobin Concent 34.9 G/DL (32.0-36.0) Red Cell Distribution Width 13.8 % (11.6-14.8) Platelet Count 112 K/UL (150-450) L Mean Platelet Volume 6.2 FL (6.5-10.1) L Neutrophils (%) (Auto) 46.0 % (45.0-75.0) Lymphocytes (%) (Auto) 34.0 % (20.0-45.0) Monocytes (%) (Auto) 8.2 % (1.0-10.0) Eosinophils (%) (Auto) 8.5 % (0.0-3.0) H Basophils (%) (Auto) 3.3 % (0.0-2.0) H Sodium Level 138 MMOL/L (136-145) Potassium Level 3.9 MMOL/L (3.5-5.1) Chloride Level 101 MMOL/L (98-107) Carbon Dioxide Level 29 MMOL/L (21-32) Anion Gap 8 mmol/L (5-15) Blood Urea Nitrogen 13 mg/dL (7-18) Creatinine 0.7 MG/DL (0.55-1.30) Estimat Glomerular Filtration Rate > 60 mL/min (>60) Glucose Level 110 MG/DL (74-106) H Calcium Level 9.0 MG/DL (8.5-10.1) Total Bilirubin 0.3 MG/DL (0.2-1.0) Aspartate Amino Transf (AST/SGOT) 15 U/L (15-37) Alanine Aminotransferase (ALT/SGPT) 23 U/L (12-78) Alkaline Phosphatase 42 U/L (46-116) L Total Protein 6.5 G/DL (6.4-8.2) Albumin 3.1 G/DL (3.4-5.0) L Globulin 3.4 g/dL Albumin/Globulin Ratio 0.9 (1.0-2.7) L Height (Feet): 6 Height (Inches): 1.00 Weight (Pounds): 174 General Appearance: WD/WN, no apparent distress, alert Cardiovascular: normal rate Respiratory/Chest: normal breath sounds, no respiratory distress Abdominal Exam: normal bowel sounds, non tender, soft Extremities: normal range of motion, non-tender Sunita Mendoza NP Sep 07, 2019 11:01
[2019-09-07 12:16] VITALS: BP 109/62
--- NOTE | 2019-09-07 12:33 | Cardiac Electrophysiology PN ---
Assessment/Plan Assessment/Plan 1. Bilateral LE edema and SOB due to CHF due to diastolic dysfunction, EF 60% BNP decreased from 2500 to 1729 on Lasix 40 daily 2. HTN. On clonidine 0.2 mg bid and Lasix 40 po daily 3. COPD on Rigoberto-Dur, Solu-Medrol and antibiotic. 4. Abdominal pain. Abd US was negative, FU GI 5. Psych issue. FU Dr Bird 6. Dysuria, UA was negative. On Piridium DW conference reservationist Subjective Subjective Alert in NAD. No CP or SOB. Noncompliant.Placement issue Objective Last 24 Hour Vital Signs Date Time Temp Pulse Resp B/P (MAP) Pulse Ox O2 Delivery O2 Flow Rate FiO2 09/07/19 12:16 98.0 70 18 109/62 (78) 97 09/07/19 11:34 63 18 97 Nasal Cannula 2.0 28 50 18 95 09/07/19 08:42 71 18 99 Nasal Cannula 2.0 28 65 18 95 09/07/19 08:40 Room Air 09/07/19 08:10 112/69 09/07/19 08:05 97.4 68 17 107/57 (74) 99 09/07/19 07:43 95 Nasal Cannula 2.0 28 09/07/19 07:43 65 18 95 Nasal Cannula 2.0 28 09/07/19 03:55 88 18 99 Nasal Cannula 2.0 28 89 16 98 09/07/19 00:00 98.3 79 22 112/69 (83) 96 09/06/19 21:00 Room Air 09/06/19 20:32 107/60 09/06/19 20:00 97.9 65 20 107/60 (76) 97 09/06/19 19:00 69 16 98 Nasal Cannula 2.0 28 09/06/19 19:00 98 Nasal Cannula 2.0 28 09/06/19 16:12 97.8 76 18 119/79 (92) 99 Intake and Output 09/06/19 09/07/19 19:00 07:00 Intake Total 1800 ml Balance 1800 ml Other 1800 ml # Voids 4 Laboratory Tests Test 09/07/19 08:45 White Blood Count 4.8 K/UL (4.8-10.8) Red Blood Count 3.39 M/UL (4.70-6.10) L Hemoglobin 11.1 G/DL (14.2-18.0) L Hematocrit 31.7 % (42.0-52.0) L Mean Corpuscular Volume 93 FL (80-99) Mean Corpuscular Hemoglobin 32.6 PG (27.0-31.0) H Mean Corpuscular Hemoglobin Concent 34.9 G/DL (32.0-36.0) Red Cell Distribution Width 13.8 % (11.6-14.8) Platelet Count 112 K/UL (150-450) L Mean Platelet Volume 6.2 FL (6.5-10.1) L Neutrophils (%) (Auto) 46.0 % (45.0-75.0) Lymphocytes (%) (Auto) 34.0 % (20.0-45.0) Monocytes (%) (Auto) 8.2 % (1.0-10.0) Eosinophils (%) (Auto) 8.5 % (0.0-3.0) H Basophils (%) (Auto) 3.3 % (0.0-2.0) H Sodium Level 138 MMOL/L (136-145) Potassium Level 3.9 MMOL/L (3.5-5.1) Chloride Level 101 MMOL/L (98-107) Carbon Dioxide Level 29 MMOL/L (21-32) Anion Gap 8 mmol/L (5-15) Blood Urea Nitrogen 13 mg/dL (7-18) Creatinine 0.7 MG/DL (0.55-1.30) Estimat Glomerular Filtration Rate > 60 mL/min (>60) Glucose Level 110 MG/DL (74-106) H Calcium Level 9.0 MG/DL (8.5-10.1) Total Bilirubin 0.3 MG/DL (0.2-1.0) Aspartate Amino Transf (AST/SGOT) 15 U/L (15-37) Alanine Aminotransferase (ALT/SGPT) 23 U/L (12-78) Alkaline Phosphatase 42 U/L (46-116) L Total Protein 6.5 G/DL (6.4-8.2) Albumin 3.1 G/DL (3.4-5.0) L Globulin 3.4 g/dL Albumin/Globulin Ratio 0.9 (1.0-2.7) L Objective HEAD AND NECK: No JVD. LUNGS: Decreased breath sounds with rhonchi. CARDIOVASCULAR: Regular S1 and S2 with no gallop. ABDOMEN: Soft. EXTREMITIES: Bilateral 2+ pitting edema Robbin Sinha MD Sep 07, 2019 12:33
--- NOTE | 2019-09-07 13:57 | General Progress Note ---
Assessment/Plan Problem List: (1) Emphysema ICD Codes: J43.9 - Emphysema SNOMED: 22470111 (2) History of CVA (cerebrovascular accident) ICD Codes: Z86.73 - History of stroke SNOMED: 986722392 Status: stable, progressing Assessment/Plan: pt sdiwt o2 pulm tx psyc cardio eval cbc bmp am aru eval Subjective Constitutional: Reports: weakness Allergies: Coded Allergies: No Known Allergies (Unverified , 08/14/19) All Systems: reviewed and negative except above Subjective o2nc sleepy Objective Last 24 Hour Vital Signs Date Time Temp Pulse Resp B/P (MAP) Pulse Ox O2 Delivery O2 Flow Rate FiO2 09/07/19 12:16 98.0 70 18 109/62 (78) 97 09/07/19 11:34 63 18 97 Nasal Cannula 2.0 28 50 18 95 09/07/19 08:42 71 18 99 Nasal Cannula 2.0 28 65 18 95 09/07/19 08:40 Room Air 09/07/19 08:10 112/69 09/07/19 08:05 97.4 68 17 107/57 (74) 99 09/07/19 07:43 95 Nasal Cannula 2.0 28 09/07/19 07:43 65 18 95 Nasal Cannula 2.0 28 09/07/19 03:55 88 18 99 Nasal Cannula 2.0 28 89 16 98 09/07/19 00:00 98.3 79 22 112/69 (83) 96 09/06/19 21:00 Room Air 09/06/19 20:32 107/60 09/06/19 20:00 97.9 65 20 107/60 (76) 97 09/06/19 19:00 69 16 98 Nasal Cannula 2.0 28 09/06/19 19:00 98 Nasal Cannula 2.0 28 09/06/19 16:12 97.8 76 18 119/79 (92) 99 Intake and Output 09/06/19 09/07/19 19:00 07:00 Intake Total 1800 ml Balance 1800 ml Other 1800 ml # Voids 4 Laboratory Tests 09/07/19 08:45: White Blood Count 4.8, Red Blood Count 3.39L, Hemoglobin 11.1L, Hematocrit 31.7L , Mean Corpuscular Volume 93, Mean Corpuscular Hemoglobin 32.6H, Mean Corpuscular Hemoglobin Concent 34.9, Red Cell Distribution Width 13.8, Platelet Count 112L, Mean Platelet Volume 6.2L, Neutrophils (%) (Auto) 46.0, Lymphocytes (%) (Auto) 34.0, Monocytes (%) (Auto) 8.2, Eosinophils (%) (Auto) 8.5H, Basophils (%) (Auto) 3.3H, Sodium Level 138, Potassium Level 3.9, Chloride Level 101, Carbon Dioxide Level 29, Anion Gap 8, Blood Urea Nitrogen 13, Creatinine 0.7, Estimat Glomerular Filtration Rate > 60, Glucose Level 110H, Calcium Level 9.0, Total Bilirubin 0.3, Aspartate Amino Transf (AST/SGOT) 15, Alanine Aminotransferase (ALT/SGPT) 23, Alkaline Phosphatase 42L, Total Protein 6.5, Albumin 3.1L, Globulin 3.4, Albumin/Globulin Ratio 0.9L Height (Feet): 6 Height (Inches): 1.00 Weight (Pounds): 174 General Appearance: lethargic EENT: normal ENT inspection Neck: normal alignment Cardiovascular: normal peripheral pulses, normal rate, regular rhythm Respiratory/Chest: chest wall non-tender, lungs clear, normal breath sounds Abdomen: normal bowel sounds, non tender, soft Extremities: normal inspection Edema: no edema noted Arm (L), no edema noted Arm (R), no edema noted Leg (L), no edema noted Leg (R), no edema noted Pedal (L), no edema noted Pedal (R), no edema noted Generalized Neurologic: responsive, motor weakness Skin: normal pigmentation, warm/dry Fred Kay DO Sep 07, 2019 13:57
--- NOTE | 2019-09-07 14:06 | NUR ---
CASE MANAGEMENT:REVIEW LATE ENTRY 09/06/2019 MEDICARE APPEAL PENDING SI;EMPHYSEMA. HX CVA. 97.0 80 21 134/76 92% 2L NC FIO2 28% IS;DUO NEB HHN Q4 HRT PYRIDIUM PO TID LASIX PO QD PROTONIX PO QD HEPARIN SUBQ Q12 HRS TYREE-DUR PO Q12 HRS MARINOL PO TID MED SURG STATUS DCP;PATIENT IS HOMELESS AND HAS REFUSED SNF AND ARU PLACEMENT
[2019-09-07 16:12] VITALS: BP 113/71
--- NOTE | 2019-09-07 18:00 | Progress Note ---
DATE: 09/07/2019 SUBJECTIVE: This is a 79-year-old patient with pulmonary nodules, diagnosed with congestive heart failure, constipation, diverticulosis CVA. MENTAL STATUS EXAMINATION: This is a 79-year-old male. Appearance is disheveled. Attitude, irritable and agitated. Affect, guarded and restricted. Intellect poor. Mood, depressed and anxious. Insight and judgment is poor DIAGNOSIS: Major depressive disorder, mild, recurrent, without psychotic features. PLAN: Plan for this patient is to treat this patient with medication regimen consisting of Zoloft 25 mg daily. A 20 minutes of cognitive behavioral therapy to help him identify his automatic negative thoughts and help him convert those negative thoughts to more positive thoughts. Chart reviewed. Discussed with staff. Seen and assessed at bedside. Misha Bird M.D. DR: AMOL JOB#: [id number] CC:
--- NOTE | 2019-09-07 19:26 | NUR ---
HAND-OFF: Report given to Ms BARKER RN Resting comfortably in bed, needs met and anticipated nathan wade
--- NOTE | 2019-09-07 19:48 | NUR ---
NURSE NOTES: Received report from NICKOLAS Barber. Patient awake, alert, and verbally responsive to let his needs known. Breathing unlabored on 2L O2 via NC without distress. Denies pain or discomfort. No IV access, MD aware. Bed placed at the lowest with brake and siderails up for safety. Call light placed within reach. Will continue to monitor and provide care as ordered.
[2019-09-07 20:00] VITALS: BP 103/68
[2019-09-07] MEDS: Miralax 17gm pkt ORAL SCH (21:00)
[2019-09-08] MEDS: Albuterol/Ipratropium 3ml neb HHN SCH (03:00)
[2019-09-08 03:44] VITALS: BP 109/69
--- NOTE | 2019-09-08 06:30 | Consultation ---
DATE OF CONSULTATION: 09/08/2019 SUBJECTIVE: The patient is a 79-year-old male patient with COPD. He has depression and anxiety, worsened by stress of his medical illness. That is why his attending has requested daily psychiatric consultation at this time. MENTAL STATUS EXAMINATION: This is a 79-year-old male. Appearance is disheveled. Attitude, irritable and agitated. Affect, guarded and restricted. Intellect poor. Mood, depressed and anxious. Motor activity, psychomotor agitation. Attention is poor. Orientation x3. Speech is low volume, slurred. Thought process, disorganized and logical. Judgment is poor. DIAGNOSIS: Major depressive disorder, mild, recurrent, without psychotic features. PLAN: Treat him with Zoloft 25 mg daily. Twenty minutes of cognitive behavioral therapy will help him identify his automatic negative thoughts and convert his negative thoughts to more positive thoughts to reduce depression, anxiety, and mood lability. Chart was reviewed. Discussed with staff. Seen and assessed in his room. Misha Bird M.D. DR: PITO JOB#: [id number] CC:
--- NOTE | 2019-09-08 07:23 | NUR ---
HAND-OFF: Report given to OLIVER Cedillo. Plan of care endorsed.
--- NOTE | 2019-09-08 07:45 | NUR ---
NURSE NOTES: Received report from Minsu, RN. Patient awake, alert, oriented x4, sitting on the bed. ambulates. Able to make things known. Breathing unlabored on 2L O2 via NC without distress. Denies pain or discomfort. No IV access, MD aware. Bed placed at the lowest with brake and siderails upx2 for safety. Call light placed within reach. Will continue to monitor and provide care as ordered.
[2019-09-08 08:00] VITALS: BP 111/61
[2019-09-08] MEDS: Lactulose 10gm/15ml UDC ORAL SCH ×3 (08:33→17:15)
[2019-09-08] MEDS: Phenazopyridine 200mg tab ORAL SCH ×3 (08:34→17:14)
[2019-09-08] MEDS: Furosemide 40mg tab ORAL SCH (08:34)
[2019-09-08] MEDS: Aspirin Baby 81mg ORAL SCH (08:34)
[2019-09-08] MEDS: Theophylline ER 100mg ORAL SCH ×2 (08:34→20:43)
[2019-09-08] MEDS: Tamsulosin 0.4mg cap ORAL SCH (08:34)
[2019-09-08] MEDS: Docusate 100mg cap ORAL SCH ×2 (08:34→17:15)
[2019-09-08] MEDS: Sucralfate 1gm tab ORAL SCH ×3 (08:34→17:14)
[2019-09-08] MEDS: Dronabinol 2.5mg Cap ORAL SCH ×3 (08:35→17:14)
[2019-09-08] MEDS: Heparin 5000 units/ml inj SUBQ SCH ×2 (08:39→20:44)
[2019-09-08] MEDS: Sertraline 50mg tab ORAL SCH (08:44)
[2019-09-08] MEDS: cloNIDine 0.2mg Tab ORAL SCH (08:44)
[2019-09-08] MEDS ORDERED: Furosemide 40mg tab ORAL SCH (09:00)
--- NOTE | 2019-09-08 09:01 | Cardiac Electrophysiology PN ---
Assessment/Plan Assessment/Plan 1. Bilateral LE edema and SOB due to CHF due to diastolic dysfunction, EF 60% BNP decreased from 2500 to 1729 on Lasix 40 daily 2. HTN. DC clonidine and continue Lasix 40 po daily. Add prn Clonidine 3. COPD on Rigoberto-Dur, Solu-Medrol and antibiotic. 4. Abdominal pain. Abd US was negative, FU GI 5. Psych issue. FU Dr Bird 6. Dysuria, UA was negative. On Piridium DW public address servicer issue Subjective Subjective Alert in NAD. No CP or SOB. Noncompliant.Refused [facility] and appealed Medicare. Placement issue. Objective Last 24 Hour Vital Signs Date Time Temp Pulse Resp B/P (MAP) Pulse Ox O2 Delivery O2 Flow Rate FiO2 09/08/19 08:44 111/61 09/08/19 08:00 96.6 64 19 111/61 (78) 97 09/08/19 03:44 97.5 86 20 109/69 (82) 95 09/07/19 23:18 62 18 99 Nasal Cannula 2.0 28 63 18 96 09/07/19 21:02 132/71 09/07/19 21:00 Nasal Cannula 2.0 09/07/19 20:00 97.3 90 21 103/68 (80) 92 09/07/19 18:51 60 18 99 Nasal Cannula 2.0 28 60 18 97 09/07/19 18:51 97 Nasal Cannula 2.0 28 09/07/19 18:51 60 18 97 Nasal Cannula 2.0 28 09/07/19 16:12 97.3 56 18 113/71 (85) 95 09/07/19 15:27 59 18 99 Nasal Cannula 2.0 28 57 18 95 09/07/19 12:16 98.0 70 18 109/62 (78) 97 09/07/19 11:34 63 18 97 Nasal Cannula 2.0 28 50 18 95 Intake and Output 09/07/19 09/08/19 19:00 07:00 Intake Total 1200 ml 800 ml Balance 1200 ml 800 ml Intake Oral 1200 ml 800 ml # Voids 4 3 Objective HEAD AND NECK: No JVD. LUNGS: Decreased breath sounds with rhonchi. CARDIOVASCULAR: Regular S1 and S2 with no gallop. ABDOMEN: Soft. EXTREMITIES: Bilateral 2+ pitting edema Robbin Sinha MD Sep 08, 2019 09:01
--- NOTE | 2019-09-08 09:38 | General Progress Note ---
Assessment/Plan Problem List: (1) Emphysema ICD Codes: J43.9 - Emphysema SNOMED: 05474117 (2) History of CVA (cerebrovascular accident) ICD Codes: Z86.73 - History of stroke SNOMED: 733528430 Status: stable, progressing Assessment/Plan: pt diett o2 pulm tx psyc cardio eval cbc bmp am dc if clear Subjective Constitutional: Reports: weakness Allergies: Coded Allergies: No Known Allergies (Unverified , 08/14/19) All Systems: reviewed and negative except above Subjective o2nc sleepy Objective Last 24 Hour Vital Signs Date Time Temp Pulse Resp B/P (MAP) Pulse Ox O2 Delivery O2 Flow Rate FiO2 09/08/19 08:44 111/61 09/08/19 08:00 96.6 64 19 111/61 (78) 97 09/08/19 03:44 97.5 86 20 109/69 (82) 95 09/07/19 23:18 62 18 99 Nasal Cannula 2.0 28 63 18 96 09/07/19 21:02 132/71 09/07/19 21:00 Nasal Cannula 2.0 09/07/19 20:00 97.3 90 21 103/68 (80) 92 09/07/19 18:51 60 18 99 Nasal Cannula 2.0 28 60 18 97 09/07/19 18:51 97 Nasal Cannula 2.0 28 09/07/19 18:51 60 18 97 Nasal Cannula 2.0 28 09/07/19 16:12 97.3 56 18 113/71 (85) 95 09/07/19 15:27 59 18 99 Nasal Cannula 2.0 28 57 18 95 09/07/19 12:16 98.0 70 18 109/62 (78) 97 09/07/19 11:34 63 18 97 Nasal Cannula 2.0 28 50 18 95 Intake and Output 09/07/19 09/08/19 19:00 07:00 Intake Total 1200 ml 800 ml Balance 1200 ml 800 ml Intake Oral 1200 ml 800 ml # Voids 4 3 Laboratory Tests 09/08/19 08:55: White Blood Count [Pending], Red Blood Count [Pending], Hemoglobin [Pending], Hematocrit [Pending], Mean Corpuscular Volume [Pending], Mean Corpuscular Hemoglobin [Pending], Mean Corpuscular Hemoglobin Concent [Pending], Red Cell Distribution Width [Pending], Platelet Count [Pending], Mean Platelet Volume [ Pending], Neutrophils (%) (Auto) [Pending], Lymphocytes (%) (Auto) [Pending], Monocytes (%) (Auto) [Pending], Eosinophils (%) (Auto) [Pending], Basophils (%) (Auto) [Pending], Sodium Level [Pending], Potassium Level [Pending], Chloride Level [Pending], Carbon Dioxide Level [Pending], Blood Urea Nitrogen [Pending], Creatinine [Pending], Estimat Glomerular Filtration Rate [Pending], Glucose Level [Pending], Calcium Level [Pending] Height (Feet): 6 Height (Inches): 1.00 Weight (Pounds): 174 General Appearance: lethargic EENT: normal ENT inspection Neck: normal alignment Cardiovascular: normal peripheral pulses, normal rate, regular rhythm Respiratory/Chest: chest wall non-tender, lungs clear, normal breath sounds Abdomen: normal bowel sounds, non tender, soft Extremities: normal inspection Edema: no edema noted Arm (L), no edema noted Arm (R), no edema noted Leg (L), no edema noted Leg (R), no edema noted Pedal (L), no edema noted Pedal (R), no edema noted Generalized Neurologic: motor weakness Skin: normal pigmentation, warm/dry Fred Kay DO Sep 08, 2019 09:38
--- NOTE | 2019-09-08 10:28 | GI Progress Note ---
Assessment/Plan Problems: (1) Constipation ICD Codes: K59.00 - Constipation, unspecified SNOMED: 58531241 (2) Fatty liver ICD Codes: K76.0 - Fatty (change of) liver, not elsewhere classified SNOMED: 684910592 Status: unchanged Status Narrative Discussed with Dr. Bright. Assessment/Plan Abdominal CT IMPRESSION: Fatty liver. Suggestion of mild fibrosis at the right lung base. Other interstitial opacities nonspecific. Calcified granulomata within the spleen Moderate atherosclerotic vascular disease. Tiny left inguinal hernia containing fat Mild diverticulosis of the colon. Sclerotic appearing femoral heads. Query AVN. Moderate degenerative changes of the spine with severe disease in the lower lumbar spine. OB stool negative stool culture negative hepatitis panel negative utox positive for marijuana dc planning refused EGD advance diet patient non-compliant LFTs improved The patient was seen and examined at bedside and all new and available data was reviewed in the patients chart. I agree with the above findings, impression and plan. (Patient seen earlier today. Signature stamp does not reflect patient encounter time.). - Won Bright MD Subjective Subjective thirsty Objective Last 24 Hour Vital Signs Date Time Temp Pulse Resp B/P (MAP) Pulse Ox O2 Delivery O2 Flow Rate FiO2 09/08/19 08:44 111/61 09/08/19 08:00 96.6 64 19 111/61 (78) 97 09/08/19 03:44 97.5 86 20 109/69 (82) 95 09/07/19 23:18 62 18 99 Nasal Cannula 2.0 28 63 18 96 09/07/19 21:02 132/71 09/07/19 21:00 Nasal Cannula 2.0 09/07/19 20:00 97.3 90 21 103/68 (80) 92 09/07/19 18:51 60 18 99 Nasal Cannula 2.0 28 60 18 97 09/07/19 18:51 97 Nasal Cannula 2.0 28 09/07/19 18:51 60 18 97 Nasal Cannula 2.0 28 09/07/19 16:12 97.3 56 18 113/71 (85) 95 09/07/19 15:27 59 18 99 Nasal Cannula 2.0 28 57 18 95 09/07/19 12:16 98.0 70 18 109/62 (78) 97 09/07/19 11:34 63 18 97 Nasal Cannula 2.0 28 50 18 95 Intake and Output 09/07/19 09/08/19 19:00 07:00 Intake Total 1200 ml 800 ml Balance 1200 ml 800 ml Intake Oral 1200 ml 800 ml # Voids 4 3 Laboratory Tests Test 09/08/19 08:55 White Blood Count Pending Red Blood Count Pending Hemoglobin Pending Hematocrit Pending Mean Corpuscular Volume Pending Mean Corpuscular Hemoglobin Pending Mean Corpuscular Hemoglobin Concent Pending Red Cell Distribution Width Pending Platelet Count Pending Mean Platelet Volume Pending Neutrophils (%) (Auto) Pending Lymphocytes (%) (Auto) Pending Monocytes (%) (Auto) Pending Eosinophils (%) (Auto) Pending Basophils (%) (Auto) Pending Sodium Level Pending Potassium Level Pending Chloride Level Pending Carbon Dioxide Level Pending Blood Urea Nitrogen Pending Creatinine Pending Estimat Glomerular Filtration Rate Pending Glucose Level Pending Calcium Level Pending Height (Feet): 6 Height (Inches): 1.00 Weight (Pounds): 174 General Appearance: WD/WN, no apparent distress, alert Cardiovascular: normal rate Respiratory/Chest: normal breath sounds, no respiratory distress Abdominal Exam: normal bowel sounds, non tender, soft Extremities: normal range of motion, non-tender Sunita Mendoza NP Sep 08, 2019 10:28
[2019-09-08 10:31] LABS: BASOPHILS % (AUTO) 0.7 % (0.0-2.0); EOSINOPHILS % (AUTO) 9.9 % (0.0-3.0); HEMATOCRIT 32.9 % (42.0-52.0); HEMOGLOBIN 11.1 G/DL (14.2-18.0); LYMPHOCYTES % (AUTO) 28.8 % (20.0-45.0); MEAN CORPUSCULAR VOLUME 96 FL (80-99); MONOCYTES % (AUTO) 11.8 % (1.0-10.0); NEUTROPHILS % (AUTO) 48.9 % (45.0-75.0); PLATELET COUNT 137 K/UL (150-450); RED BLOOD COUNT 3.44 M/UL (4.70-6.10); RED CELL DISTRIBUTION WIDTH 11.7 % (11.6-14.8); WHITE BLOOD COUNT 4.7 K/UL (4.8-10.8)
[2019-09-08 11:37] LABS: ANION GAP 9 mmol/L (5-15); BLOOD UREA NITROGEN 15 mg/dL (7-18); CALCIUM 9.4 MG/DL (8.5-10.1); CARBON DIOXIDE 29 MMOL/L (21-32); CHLORIDE 103 MMOL/L (98-107); CREATININE 0.8 MG/DL (0.55-1.30); POTASSIUM 4.3 MMOL/L (3.5-5.1); SODIUM 141 MMOL/L (136-145)
[2019-09-08 12:00] VITALS: BP 124/68
--- NOTE | 2019-09-08 13:23 | Pulmonology Progress Note ---
Assessment/Plan Problems: (1) Acute exacerbation of chronic obstructive airways disease (2) Acute bronchitis (3) Pulmonary nodule (4) Emphysema (5) Peripheral neuropathy (6) History of cocaine abuse (7) Chronic back pain (8) DJD (degenerative joint disease) Assessment/Plan slowly improving did physical therapy , c/o weakness no new complains med/surg slightly better EF: 60% respiratory treatment symptomatic treatment placement in process Subjective ROS Limited/Unobtainable: No Allergies: Coded Allergies: No Known Allergies (Unverified , 08/14/19) Objective Last 24 Hour Vital Signs Date Time Temp Pulse Resp B/P (MAP) Pulse Ox O2 Delivery O2 Flow Rate FiO2 09/08/19 12:00 97.2 60 20 124/68 (86) 98 09/08/19 09:00 Nasal Cannula 2.0 09/08/19 08:44 111/61 09/08/19 08:00 96.6 64 19 111/61 (78) 97 09/08/19 03:44 97.5 86 20 109/69 (82) 95 09/07/19 23:18 62 18 99 Nasal Cannula 2.0 28 63 18 96 09/07/19 21:02 132/71 09/07/19 21:00 Nasal Cannula 2.0 09/07/19 20:00 97.3 90 21 103/68 (80) 92 09/07/19 18:51 60 18 99 Nasal Cannula 2.0 28 60 18 97 09/07/19 18:51 97 Nasal Cannula 2.0 28 09/07/19 18:51 60 18 97 Nasal Cannula 2.0 28 09/07/19 16:12 97.3 56 18 113/71 (85) 95 09/07/19 15:27 59 18 99 Nasal Cannula 2.0 28 57 18 95 Intake and Output 09/07/19 09/08/19 19:00 07:00 Intake Total 1200 ml 800 ml Balance 1200 ml 800 ml Intake Oral 1200 ml 800 ml # Voids 4 3 Objective General Appearance: WN, WD, WH Lines, tubes and drains: peripheral HEENT: normocephalic, atraumatic Neck: non-tender, normal alignment Respiratory/Chest: chest wall non-tender, rhonchi - right, expiratory wheezing Breasts: no masses Cardiovascular/Chest: normal peripheral pulses Abdomen: normal bowel sounds, non tender, hyperactive bowel sounds Extremities: normal range of motion Laboratory Tests 09/08/19 10:15: White Blood Count 4.7L, Red Blood Count 3.44L, Hemoglobin 11.1L, Hematocrit 32.9L, Mean Corpuscular Volume 96, Mean Corpuscular Hemoglobin 32.4H, Mean Corpuscular Hemoglobin Concent 33.8, Red Cell Distribution Width 11.7, Platelet Count 137L, Mean Platelet Volume 6.3L, Neutrophils (%) (Auto) 48.9, Lymphocytes (%) (Auto) 28.8, Monocytes (%) (Auto) 11.8H, Eosinophils (%) (Auto) 9.9H, Basophils (%) (Auto) 0.7, Sodium Level 141, Potassium Level 4.3, Chloride Level 103, Carbon Dioxide Level 29, Anion Gap 9, Blood Urea Nitrogen 15, Creatinine 0.8, Estimat Glomerular Filtration Rate > 60, Glucose Level 94, Calcium Level 9.4 Current Medications Medications (Trade) Dose Ordered Sig/Aguila Route PRN Reason Start Time Stop Time Status Last Admin Dose Admin Acetaminophen (Tylenol) 650 mg Q4H PRN ORAL Mild Pain/Temp > 100.5 08/21/19 16:08 09/13/19 16:07 08/24/19 17:34 Aspirin (ASA) 81 mg DAILY ORAL 08/22/19 09:00 09/13/19 11:14 09/08/19 08:34 Dextrose (Dextrose 50%) 25 ml Q30M PRN IV Hypoglycemia 08/21/19 16:08 09/13/19 16:07 Dextrose (Dextrose 50%) 50 ml Q30M PRN IV Hypoglycemia 08/21/19 16:09 09/13/19 16:08 Docusate Sodium (Colace) 100 mg TWICE A DAY ORAL 08/21/19 18:00 09/16/19 08:59 09/08/19 08:34 Dronabinol (Marinol) 2.5 mg TID ORAL 08/21/19 18:00 09/15/19 12:59 09/08/19 08:35 Furosemide (Lasix) 40 mg DAILY ORAL 09/09/19 09:00 10/09/19 08:59 Heparin Sodium (Porcine) (Heparin 5000 units/ml) 5,000 units EVERY 12 HOURS SUBQ 08/22/19 09:00 09/13/19 08:59 2/26/20 08:39 Lactulose (Cephulac) 10 gm THREE TIMES A DAY ORAL 08/21/19 18:00 09/17/19 08:59 09/08/19 08:33 Nitroglycerin (Ntg) 0.4 mg Q5M X 3 DOSES PRN SL Prn Chest Pain 08/21/19 16:00 09/13/19 06:44 Ondansetron HCl (Zofran) 4 mg Q6H PRN IVP Nausea & Vomiting 08/21/19 16:10 09/13/19 16:09 Pantoprazole (Protonix) 40 mg DAILY ORAL 08/23/19 09:00 09/22/19 08:59 09/08/19 08:34 Phenazopyridine HCl (Pyridium) 200 mg THREE TIMES A DAY ORAL 08/31/19 16:06 09/30/19 16:05 09/08/19 08:34 Polyethylene Glycol (Miralax) 17 gm BEDTIME ORAL 08/21/19 21:00 09/17/19 20:59 08/27/19 22:50 Promethazine HCl/ Codeine (Phenergan with Codeine) 5 ml Q6H PRN ORAL cough 08/21/19 16:10 09/13/19 16:09 09/03/19 04:40 Sertraline HCl (Zoloft) 25 mg DAILY ORAL 08/22/19 09:00 09/15/19 08:59 09/03/19 08:32 Simethicone (Mylicon) 80 mg Q6H PRN ORAL Abdominal cramps 08/21/19 20:00 09/19/19 07:59 Sucralfate (Carafate) 1 gm TID ORAL 08/21/19 18:00 09/19/19 08:59 09/08/19 08:34 Tamsulosin HCl (Flomax) 0.4 mg DAILY ORAL 08/31/19 16:15 09/30/19 16:14 09/08/19 08:34 Theophylline (Rigoberto-Dur) 100 mg EVERY 12 HOURS ORAL 08/21/19 21:00 09/13/19 08:59 09/08/19 08:34 Farhan Ortega MD Sep 08, 2019 13:23
[2019-09-08 16:00] VITALS: BP 133/61
--- NOTE | 2019-09-08 16:49 | NUR ---
CASE MANAGEMENT:REVIEW SI;EMPHYSEMA. HX CVA. 96.8 94 20 133/61 98% 2L NC WBC 4.7 IS; LASIX PO QD PYRIDIUM PO TID ASA PO QD HEPARIN SUBQ Q12 HRS TYREE-DUR PO Q12 HRS MARINOL PO TID MED SURG STATUS DCP;HOMELESS. NEEDS PLACEMENT.
--- NOTE | 2019-09-08 19:05 | NUR ---
HAND-OFF: Report given to Shirin.
--- NOTE | 2019-09-08 19:50 | NUR ---
NURSE NOTES: Received patient in bed, awake, alert, oriented x4, able to make his needs known, no IV MD is aware, no acute distress noted, call light is within reach, bed is lowered, locked and alarm is on, will continue to monitor for comfort and safety.
[2019-09-08 20:00] VITALS: BP 132/60
[2019-09-08] MEDS: Miralax 17gm pkt ORAL SCH (20:43)
[2019-09-09] VITALS: BP 128/78
[2019-09-09 04:00] VITALS: BP 135/64
--- NOTE | 2019-09-09 07:16 | NUR ---
HAND-OFF: Report given to Torsten OLMOS.
--- NOTE | 2019-09-09 07:39 | NUR ---
NURSE NOTES: Received report from Shirin, patient sleeping in semi-Blackman's position, on 2 liters nasal cannula, bed in lowest position, call light within reach, in no apparent distress.
[2019-09-09 08:00] VITALS: BP 126/81
[2019-09-09] MEDS: Theophylline ER 100mg ORAL SCH (08:56)
[2019-09-09] MEDS: Aspirin Baby 81mg ORAL SCH (08:56)
[2019-09-09] MEDS: Phenazopyridine 200mg tab ORAL SCH (08:56)
[2019-09-09] MEDS: Sucralfate 1gm tab ORAL SCH (08:57)
[2019-09-09] MEDS: Sertraline 50mg tab ORAL SCH (08:57)
[2019-09-09] MEDS: Dronabinol 2.5mg Cap ORAL SCH (08:57)
[2019-09-09] MEDS: Tamsulosin 0.4mg cap ORAL SCH (08:57)
[2019-09-09] MEDS: Docusate 100mg cap ORAL SCH (08:57)
[2019-09-09] MEDS: Lactulose 10gm/15ml UDC ORAL SCH (08:57)
[2019-09-09] MEDS: Heparin 5000 units/ml inj SUBQ SCH (08:59)
[2019-09-09] MEDS ORDERED: Furosemide 40mg tab ORAL SCH (09:00)
--- NOTE | 2019-09-09 09:14 | General Progress Note ---
Assessment/Plan Problem List: (1) Fatty liver ICD Codes: K76.0 - Fatty (change of) liver, not elsewhere classified SNOMED: 423679067 (2) CHF (congestive heart failure) ICD Codes: I50.9 - Heart failure, unspecified SNOMED: 41709531 (3) Emphysema ICD Codes: J43.9 - Emphysema SNOMED: 08783699 (4) Tobacco dependence ICD Codes: F17.200 - Nicotine dependence, unspecified, uncomplicated SNOMED: 40338959 (5) DJD (degenerative joint disease) ICD Codes: M19.90 - Unspecified osteoarthritis, unspecified site SNOMED: 759500424 (6) Elevated LFTs ICD Codes: R94.5 - Abnormal results of liver function studies SNOMED: 615376067, 358616609 (7) Diverticulosis ICD Codes: K57.90 - Diverticulosis of intestine, part unspecified, without perforation or abscess without bleeding SNOMED: 597875127 (8) Constipation ICD Codes: K59.00 - Constipation, unspecified SNOMED: 96180531 Status: unchanged Assessment/Plan: (1) Constipation ICD Codes: K59.00 - Constipation, unspecified SNOMED: 77836061 (2) Fatty liver ICD Codes: K76.0 - Fatty (change of) liver, not elsewhere classified SNOMED: 984741365 Status: unchanged i. Assessment/Plan Abdominal CT IMPRESSION: Fatty liver. Suggestion of mild fibrosis at the right lung base. Other interstitial opacities nonspecific. Calcified granulomata within the spleen Moderate atherosclerotic vascular disease. Tiny left inguinal hernia containing fat Mild diverticulosis of the colon. Sclerotic appearing femoral heads. Query AVN. Moderate degenerative changes of the spine with severe disease in the lower lumbar spine. OB stool negative stool culture negative repeat labs neg stool ob refused EGD improving lfts fu cardiology Subjective ROS Limited/Unobtainable: Yes Allergies: Coded Allergies: No Known Allergies (Unverified , 08/14/19) Subjective c/o abd pain had BM no bleeding Objective Last 24 Hour Vital Signs Date Time Temp Pulse Resp B/P (MAP) Pulse Ox O2 Delivery O2 Flow Rate FiO2 09/09/19 04:00 96.8 72 18 135/64 (87) 98 09/09/19 00:00 97.2 83 18 128/78 (95) 93 09/08/19 21:04 Nasal Cannula 2.0 09/08/19 20:00 97.9 100 18 132/60 (84) 94 09/08/19 16:18 98 Nasal Cannula 2.0 28 09/08/19 16:17 68 20 98 Nasal Cannula 2.0 28 09/08/19 16:00 96.8 94 20 133/61 (85) 94 09/08/19 12:00 97.2 60 20 124/68 (86) 98 Intake and Output 09/08/19 09/09/19 19:00 07:00 Intake Total 840 ml Balance 840 ml Intake Oral 840 ml # Voids 3 # Bowel Movements 2 Laboratory Tests 09/08/19 10:15: White Blood Count 4.7L, Red Blood Count 3.44L, Hemoglobin 11.1L, Hematocrit 32.9L, Mean Corpuscular Volume 96, Mean Corpuscular Hemoglobin 32.4H, Mean Corpuscular Hemoglobin Concent 33.8, Red Cell Distribution Width 11.7, Platelet Count 137L, Mean Platelet Volume 6.3L, Neutrophils (%) (Auto) 48.9, Lymphocytes (%) (Auto) 28.8, Monocytes (%) (Auto) 11.8H, Eosinophils (%) (Auto) 9.9H, Basophils (%) (Auto) 0.7, Sodium Level 141, Potassium Level 4.3, Chloride Level 103, Carbon Dioxide Level 29, Anion Gap 9, Blood Urea Nitrogen 15, Creatinine 0.8, Estimat Glomerular Filtration Rate > 60, Glucose Level 94, Calcium Level 9.4 Height (Feet): 6 Height (Inches): 1.00 Weight (Pounds): 174 General Appearance: alert EENT: normal ENT inspection Neck: normal alignment Cardiovascular: normal rate Respiratory/Chest: lungs clear Abdomen: normal bowel sounds, non tender, soft Extremities: non-tender Won Bright MD Sep 09, 2019 09:14
[2019-09-09 10:17] LABS: BASOPHILS % (AUTO) 1.6 % (0.0-2.0); EOSINOPHILS % (AUTO) 8.6 % (0.0-3.0); HEMATOCRIT 34.7 % (42.0-52.0); HEMOGLOBIN 11.5 G/DL (14.2-18.0); LYMPHOCYTES % (AUTO) 27.7 % (20.0-45.0); MEAN CORPUSCULAR VOLUME 99 FL (80-99); MONOCYTES % (AUTO) 13.9 % (1.0-10.0); NEUTROPHILS % (AUTO) 48.2 % (45.0-75.0); PLATELET COUNT 157 K/UL (150-450); RED BLOOD COUNT 3.51 M/UL (4.70-6.10); RED CELL DISTRIBUTION WIDTH 13.2 % (11.6-14.8); WHITE BLOOD COUNT 6.2 K/UL (4.8-10.8)
[2019-09-09 10:24] LABS: ANION GAP 6 mmol/L (5-15); BLOOD UREA NITROGEN 8 mg/dL (7-18); CALCIUM 9.1 MG/DL (8.5-10.1); CARBON DIOXIDE 31 MMOL/L (21-32); CHLORIDE 102 MMOL/L (98-107); CREATININE 0.7 MG/DL (0.55-1.30); POTASSIUM 4.1 MMOL/L (3.5-5.1); SODIUM 139 MMOL/L (136-145)
--- NOTE | 2019-09-09 11:04 | Cardiac Electrophysiology PN ---
Assessment/Plan Assessment/Plan 1. Bilateral LE edema and SOB due to CHF due to diastolic dysfunction, EF 60% BNP decreased from 2500 to 1729 on Lasix 40 daily 2. HTN. On Lasix 40 po daily and prn Clonidine 3. COPD on Rigoberto-Dur, Solu-Medrol and antibiotic. 4. Abdominal pain. Abd US was negative, FU GI 5. Psych issue. FU Dr Bird 6. Dysuria, UA was negative. DW RN Subjective Subjective Alert in NAD. No CP or SOB. Refused ARU and appealed Medicare. Placement issue. Objective Last 24 Hour Vital Signs Date Time Temp Pulse Resp B/P (MAP) Pulse Ox O2 Delivery O2 Flow Rate FiO2 09/09/19 09:00 Nasal Cannula 2.0 09/09/19 08:52 96 Nasal Cannula 2.0 28 09/09/19 08:00 96.3 67 18 126/81 (96) 98 09/09/19 04:00 96.8 72 18 135/64 (87) 98 09/09/19 00:00 97.2 83 18 128/78 (95) 93 09/08/19 21:04 Nasal Cannula 2.0 09/08/19 20:00 97.9 100 18 132/60 (84) 94 09/08/19 16:18 98 Nasal Cannula 2.0 28 09/08/19 16:17 68 20 98 Nasal Cannula 2.0 28 09/08/19 16:00 96.8 94 20 133/61 (85) 94 09/08/19 12:00 97.2 60 20 124/68 (86) 98 Intake and Output 09/08/19 09/09/19 19:00 07:00 Intake Total 840 ml Balance 840 ml Intake Oral 840 ml # Voids 3 # Bowel Movements 2 Laboratory Tests Test 09/09/19 09:55 White Blood Count 6.2 K/UL (4.8-10.8) Red Blood Count 3.51 M/UL (4.70-6.10) L Hemoglobin 11.5 G/DL (14.2-18.0) L Hematocrit 34.7 % (42.0-52.0) L Mean Corpuscular Volume 99 FL (80-99) Mean Corpuscular Hemoglobin 32.7 PG (27.0-31.0) H Mean Corpuscular Hemoglobin Concent 33.0 G/DL (32.0-36.0) Red Cell Distribution Width 13.2 % (11.6-14.8) Platelet Count 157 K/UL (150-450) Mean Platelet Volume 6.6 FL (6.5-10.1) Neutrophils (%) (Auto) 48.2 % (45.0-75.0) Lymphocytes (%) (Auto) 27.7 % (20.0-45.0) Monocytes (%) (Auto) 13.9 % (1.0-10.0) H Eosinophils (%) (Auto) 8.6 % (0.0-3.0) H Basophils (%) (Auto) 1.6 % (0.0-2.0) Sodium Level 139 MMOL/L (136-145) Potassium Level 4.1 MMOL/L (3.5-5.1) Chloride Level 102 MMOL/L (98-107) Carbon Dioxide Level 31 MMOL/L (21-32) Anion Gap 6 mmol/L (5-15) Blood Urea Nitrogen 8 mg/dL (7-18) Creatinine 0.7 MG/DL (0.55-1.30) Estimat Glomerular Filtration Rate > 60 mL/min (>60) Glucose Level 89 MG/DL (74-106) Calcium Level 9.1 MG/DL (8.5-10.1) Objective HEAD AND NECK: No JVD. LUNGS: Decreased breath sounds with rhonchi. CARDIOVASCULAR: Regular S1 and S2 with no gallop. ABDOMEN: Soft. EXTREMITIES: Bilateral 2+ pitting edema Robbin Sinha MD Sep 09, 2019 11:04
[2019-09-09 12:00] VITALS: BP 120/79
[2019-09-09] MEDS ORDERED: Pneumococcal Vaccine 25mcg/0.5ml IM ONE (13:15)
--- NOTE | 2019-09-09 14:15 | Progress Note ---
DATE: 09/09/2019 SUBJECTIVE: This is a 79-year-old male with COPD. He is very irritable, confused. He has increased depression, anxiety worsened by stress of his medical illness. That is why, his attending physician has requested daily psychiatric consultation. DIAGNOSIS: Major depressive disorder, severe, recurrent with psychotic features, rule out dementia with psychosis. PLAN: For this patient is to treat him with medication regimen of Zoloft 25 mg daily. 20 minutes of cognitive behavioral therapy to help him identify his automatic negative thoughts, help him convert his negative thoughts to more positive thoughts to reduce depression, anxiety, and mood lability. Chart reviewed. Discussed with staff. Seen and assessed in his room. Misha Bird M.D. DR: ROHAN JOB#: [id number] CC:
--- NOTE | 2019-09-09 14:16 | NUR ---
NURSE NOTES: Patient is refusing to let me remove his hospital identification bracelet. Informed Seema, Charge Nurse.
[2019-09-09] MEDS ORDERED: ZOLOFT50 MG ORAL (14:33)
[2019-09-09] MEDS ORDERED: ALBUTEROL SULF8.5 GM INH (14:33)
[2019-09-09] MEDS ORDERED: FLOMAX0.4 MG ORAL (14:33)
--- NOTE | 2019-09-09 14:53 | General Progress Note ---
Assessment/Plan Problem List: (1) Emphysema ICD Codes: J43.9 - Emphysema SNOMED: 91213634 (2) History of CVA (cerebrovascular accident) ICD Codes: Z86.73 - History of stroke SNOMED: 917016469 Status: stable, progressing, unchanged Assessment/Plan: pt diett o2 pulm tx psyc cardio eval dc if clear Subjective Constitutional: Reports: weakness Allergies: Coded Allergies: No Known Allergies (Unverified , 08/14/19) All Systems: reviewed and negative except above Subjective calm in bed Objective Last 24 Hour Vital Signs Date Time Temp Pulse Resp B/P (MAP) Pulse Ox O2 Delivery O2 Flow Rate FiO2 09/09/19 12:00 94.9 114 18 120/79 (93) 94 09/09/19 09:00 Nasal Cannula 2.0 09/09/19 08:52 96 Nasal Cannula 2.0 28 09/09/19 08:00 96.3 67 18 126/81 (96) 98 09/09/19 04:00 96.8 72 18 135/64 (87) 98 09/09/19 00:00 97.2 83 18 128/78 (95) 93 09/08/19 21:04 Nasal Cannula 2.0 09/08/19 20:00 97.9 100 18 132/60 (84) 94 09/08/19 16:18 98 Nasal Cannula 2.0 28 09/08/19 16:17 68 20 98 Nasal Cannula 2.0 28 09/08/19 16:00 96.8 94 20 133/61 (85) 94 Intake and Output 09/08/19 09/09/19 19:00 07:00 Intake Total 840 ml Balance 840 ml Intake Oral 840 ml # Voids 3 # Bowel Movements 2 Laboratory Tests 09/09/19 09:55: White Blood Count 6.2, Red Blood Count 3.51L, Hemoglobin 11.5L, Hematocrit 34.7L , Mean Corpuscular Volume 99, Mean Corpuscular Hemoglobin 32.7H, Mean Corpuscular Hemoglobin Concent 33.0, Red Cell Distribution Width 13.2, Platelet Count 157, Mean Platelet Volume 6.6, Neutrophils (%) (Auto) 48.2, Lymphocytes (% ) (Auto) 27.7, Monocytes (%) (Auto) 13.9H, Eosinophils (%) (Auto) 8.6H, Basophils (%) (Auto) 1.6, Sodium Level 139, Potassium Level 4.1, Chloride Level 102, Carbon Dioxide Level 31, Anion Gap 6, Blood Urea Nitrogen 8, Creatinine 0.7 , Estimat Glomerular Filtration Rate > 60, Glucose Level 89, Calcium Level 9.1 Height (Feet): 6 Height (Inches): 1.00 Weight (Pounds): 174 General Appearance: lethargic EENT: normal ENT inspection Neck: normal alignment Cardiovascular: normal peripheral pulses, normal rate, regular rhythm Respiratory/Chest: chest wall non-tender, lungs clear, normal breath sounds Abdomen: normal bowel sounds, non tender, soft Extremities: normal inspection Edema: no edema noted Arm (L), no edema noted Arm (R), no edema noted Leg (L), no edema noted Leg (R), no edema noted Pedal (L), no edema noted Pedal (R), no edema noted Generalized Neurologic: responsive, motor weakness Skin: normal pigmentation, warm/dry Fred Kay DO Sep 09, 2019 14:53
--- NOTE | 2019-09-09 14:53 | Pulmonology Progress Note ---
Assessment/Plan Problems: (1) Acute exacerbation of chronic obstructive airways disease (2) Acute bronchitis (3) Pulmonary nodule (4) Emphysema (5) Peripheral neuropathy (6) History of cocaine abuse (7) Chronic back pain (8) DJD (degenerative joint disease) Assessment/Plan slowly improving did physical therapy , c/o weakness no new complains med/surg slightly better EF: 60% respiratory treatment symptomatic treatment pt agreed to go to his car Subjective ROS Limited/Unobtainable: No Interval Events: doing better Allergies: Coded Allergies: No Known Allergies (Unverified , 08/14/19) Objective Last 24 Hour Vital Signs Date Time Temp Pulse Resp B/P (MAP) Pulse Ox O2 Delivery O2 Flow Rate FiO2 09/09/19 12:00 94.9 114 18 120/79 (93) 94 09/09/19 09:00 Nasal Cannula 2.0 09/09/19 08:52 96 Nasal Cannula 2.0 28 09/09/19 08:00 96.3 67 18 126/81 (96) 98 09/09/19 04:00 96.8 72 18 135/64 (87) 98 09/09/19 00:00 97.2 83 18 128/78 (95) 93 09/08/19 21:04 Nasal Cannula 2.0 09/08/19 20:00 97.9 100 18 132/60 (84) 94 09/08/19 16:18 98 Nasal Cannula 2.0 28 09/08/19 16:17 68 20 98 Nasal Cannula 2.0 28 09/08/19 16:00 96.8 94 20 133/61 (85) 94 Intake and Output 09/08/19 09/09/19 19:00 07:00 Intake Total 840 ml Balance 840 ml Intake Oral 840 ml # Voids 3 # Bowel Movements 2 Objective General Appearance: WN, WD, WH Lines, tubes and drains: peripheral HEENT: normocephalic, atraumatic Neck: non-tender, normal alignment Respiratory/Chest: chest wall non-tender, rhonchi - right, expiratory wheezing Breasts: no masses Cardiovascular/Chest: normal peripheral pulses Abdomen: normal bowel sounds, non tender, hyperactive bowel sounds Extremities: normal range of motion Laboratory Tests 09/09/19 09:55: White Blood Count 6.2, Red Blood Count 3.51L, Hemoglobin 11.5L, Hematocrit 34.7L , Mean Corpuscular Volume 99, Mean Corpuscular Hemoglobin 32.7H, Mean Corpuscular Hemoglobin Concent 33.0, Red Cell Distribution Width 13.2, Platelet Count 157, Mean Platelet Volume 6.6, Neutrophils (%) (Auto) 48.2, Lymphocytes (% ) (Auto) 27.7, Monocytes (%) (Auto) 13.9H, Eosinophils (%) (Auto) 8.6H, Basophils (%) (Auto) 1.6, Sodium Level 139, Potassium Level 4.1, Chloride Level 102, Carbon Dioxide Level 31, Anion Gap 6, Blood Urea Nitrogen 8, Creatinine 0.7 , Estimat Glomerular Filtration Rate > 60, Glucose Level 89, Calcium Level 9.1 Current Medications Medications (Trade) Dose Ordered Sig/Aguila Route PRN Reason Start Time Stop Time Status Last Admin Dose Admin Acetaminophen (Tylenol) 650 mg Q4H PRN ORAL Mild Pain/Temp > 100.5 08/21/19 16:08 09/13/19 16:07 08/24/19 17:34 Aspirin (ASA) 81 mg DAILY ORAL 08/22/19 09:00 09/13/19 11:14 09/09/19 08:56 Dextrose (Dextrose 50%) 25 ml Q30M PRN IV Hypoglycemia 08/21/19 16:08 09/13/19 16:07 Dextrose (Dextrose 50%) 50 ml Q30M PRN IV Hypoglycemia 08/21/19 16:09 09/13/19 16:08 Docusate Sodium (Colace) 100 mg TWICE A DAY ORAL 08/21/19 18:00 09/16/19 08:59 09/09/19 08:57 Dronabinol (Marinol) 2.5 mg TID ORAL 08/21/19 18:00 09/15/19 12:59 09/09/19 08:57 Furosemide (Lasix) 40 mg DAILY ORAL 09/09/19 09:00 10/09/19 08:59 09/09/19 09:07 Heparin Sodium (Porcine) (Heparin 5000 units/ml) 5,000 units EVERY 12 HOURS SUBQ 08/22/19 09:00 09/13/19 08:59 09/09/19 08:59 Lactulose (Cephulac) 10 gm THREE TIMES A DAY ORAL 08/21/19 18:00 09/17/19 08:59 09/09/19 08:57 Nitroglycerin (Ntg) 0.4 mg Q5M X 3 DOSES PRN SL Prn Chest Pain 08/21/19 16:00 09/13/19 06:44 Ondansetron HCl (Zofran) 4 mg Q6H PRN IVP Nausea & Vomiting 08/21/19 16:10 09/13/19 16:09 Pantoprazole (Protonix) 40 mg DAILY ORAL 08/23/19 09:00 09/22/19 08:59 09/09/19 08:56 Phenazopyridine HCl (Pyridium) 200 mg THREE TIMES A DAY ORAL 08/31/19 16:06 09/30/19 16:05 09/09/19 08:56 Polyethylene Glycol (Miralax) 17 gm BEDTIME ORAL 08/21/19 21:00 09/17/19 20:59 09/08/19 20:43 Promethazine HCl/ Codeine (Phenergan with Codeine) 5 ml Q6H PRN ORAL cough 08/21/19 16:10 09/13/19 16:09 09/03/19 04:40 Sertraline HCl (Zoloft) 25 mg DAILY ORAL 08/22/19 09:00 09/15/19 08:59 09/09/19 08:57 Simethicone (Mylicon) 80 mg Q6H PRN ORAL Abdominal cramps 08/21/19 20:00 09/19/19 07:59 Sucralfate (Carafate) 1 gm TID ORAL 08/21/19 18:00 09/19/19 08:59 09/09/19 08:57 Tamsulosin HCl (Flomax) 0.4 mg DAILY ORAL 08/31/19 16:15 09/30/19 16:14 09/09/19 08:57 Theophylline (Rigoberto-Dur) 100 mg EVERY 12 HOURS ORAL 08/21/19 21:00 09/13/19 08:59 09/09/19 08:56 Farhan Ortega MD Sep 09, 2019 14:53
[2019-09-09] MEDS ORDERED: Sterile Water Irrig 1000ml IRRIG ONE (15:29)
--- NOTE | 2019-09-13 09:54 | Discharge Summary ---
Discharge Summary Discharge Summary _ DATE OF ADMISSION: 08/14/2019 DATE OF DISCHARGE: 09/09/2019 DISCHARGED BY: Dr. Kay REASON FOR ADMISSION: 79 years old male with past medical history of COPD, CVA, hypertension, presented to emergency room for shortness of breath . Patient reported nonproductive cough and some wheezing. He stated that inhalers do not help him. He reported chronic lower extremities edema. No chest pain. Upon evaluation patient was tachycardic. Blood pressure was elevated 169/98 . Pulse oximetry was stable on room air. Laboratory work-up revealed no leukocytosis , stable hemoglobin , hematocrit, platelet count 127. Stable electrolytes and renal parameters. Troponin negative. EKG revealed sinus rhythm with nonspecific ST segment changes. Glucose 65. AST 97, ALT 53 . Chest x-ray demonstrated no acute cardiopulmonary pathology. Patient subsequently admitted to telemetry floor . CONSULTANTS: medical scientific officer Dr. Rodas pulmonary Dr. Ortega ID specialist Dr. Baumann GI specialist Dr. Bright psychiatrist Dr. Bird [facility]: Patient admitted to telemetry floor. Patient started on the IV steroids with tapering. Supplemental oxygen provided and titrated to keep oximetry above 92%. Bronchodilator treatment via hand-held nebulizer provided. Patient started on empiric antibiotics. Trial of theophylline instituted. Antitussive provided as needed. DVT prophylaxis provided. Patient was counseled on smoking cessation. Patient declined nicotine patch. Patient did not provide sputum sample due to the fact that the cough was dry. Patient completed treatment of steroids and empiric antibiotics. BiPAP provided at nighttime and as needed. CT of the chest revealed tiny pulmonary nodules some of these disappeared from previous exam. Patient started on diuresis with Lasix with close monitoring of volumes and cardiorenal parameters. Pro BNP was trending down. Echocardiogram revealed preserved ejection fraction of 60% and right ventricular systolic pressure of 34. No evidence of wall motion abnormality. Blood pressure management was optimized to keep blood pressure under control . Doses were uptitrated as per medical scientific officer. Antiplatelet therapy with aspirin continued. Patient complained of abdominal pain. GI specialist followed. Bowel regimen instituted. GI prophylaxis provided. Urine toxicology screen was negative. CT scan of the abdomen and pelvis revealed fatty liver with mild diverticulosis of the colon, no evidence of diverticulitis. Moderate atherosclerotic vascular disease. Moderate degenerative changes of the spine and severe disease of the lower lumbar spine. Pain management was addressed as needed for chronic back pain. Abdominal ultrasound revealed no evidence of gallstones or biliary ductal dilatation. Patient declined EGD. LFT were trending down. Hepatitis panel was negative. Carafate was added to existing regimen. Stool culture was negative , and stool for C. difficile was negative. Patient improved symptomatically . Patient continued to decline EGD. Hemoglobin and hematocrit remained stable. Patient declined SNF placement and wanted to go to live in his car. Patient was not accepted by acute rehabilitation unit. Patient complained of urinary burning . Urine culture revealed mixed gram-positive organism. Symptomatic treatment provided, and urinary burning resolved. Psychiatrist followed. Per psychiatrist patient had major depressive disorder with psychotic features. Psychiatric medication regimen was optimized. Reality orientation and supportive therapy provided. Patient clinically stabilized . Pulse oximetry was stable on room air. No chest pain. Patient was able to tolerate diet. The treating physician had assessed and agreed , that patient was medically stable for discharge to an outpatient disposition., FINAL DIAGNOSES: COPD exacerbation CHF with diastolic dysfunction Hypertension Acute bronchitis Emphysema Pulmonary nodule Tobacco abuse History of cocaine abuse DJD with chronic back pain History of CVA Abdominal pain Fatty liver Diverticulosis Constipation Peripheral neuropathy Major depressive disorder, severe, recurrent with psychotic features DISCHARGE MEDICATIONS: See Medication Reconciliation list. DISCHARGE INSTRUCTIONS: Patient was discharged to an outpatient disposition. Follow up with a primary care provider in a week. Mariana Canada NP Sep 13, 2019 09:54
== END 2019-09-09 15:30 | disposition home or self-care (01) | DRG 190 ==
LOC: EDBD 01:14 → EMR 02:23 → 2E 05:00 → EDBEDREQTM 06:17 → EDBEDREQSVC 06:17 → EDBEDREQ 06:17 → 4E 08-21 16:00
DX: J44.1 Chronic obstructive pulmonary disease with (acute) exacerbation (principal); I50.33 Acute on chronic diastolic (congestive) heart failure; F33.3 Major depressive disorder, recurrent, severe with psychotic symptoms; J44.0 Chronic obstructive pulmonary disease with (acute) lower respiratory infection; J20.9 Acute bronchitis, unspecified; I11.0 Hypertensive heart disease with heart failure; Z86.73 Personal history of transient ischemic attack (TIA), and cerebral infarction without residual deficits; R00.0 Tachycardia, unspecified; F14.10 Cocaine abuse, uncomplicated; F17.210 Nicotine dependence, cigarettes, uncomplicated; G62.9 Polyneuropathy, unspecified; M54.9 Dorsalgia, unspecified; R30.0 Dysuria; K59.00 Constipation, unspecified; K76.0 Fatty (change of) liver, not elsewhere classified; K57.90 Diverticulosis of intestine, part unspecified, without perforation or abscess without bleeding
CPT/HCPCS: 36415; 36600; 71045; 71260; 74177; 76700; 80048; 80053; 80307; 81001; 82270; 82803; 83735; 83880; 84100; 84484; 85007; 85025; 86705; 86709; 86803; 87045; 87086; 87324; 87340; 90689; 90732; 93005; 93306; 93970; 94640; 94664; 96361; 96365; 96375; 99285; J7030; J7620; J8499

== ENCOUNTER 2019-11-25 09:56 | Inpatient (IN) | payer MEDICARE, MEDICAID ==
[~2019-11-25] VITALS: Ht 185.4 cm; Wt 81.6 kg
[~2019-11-25 09:56] MED LIST changes: +FLOMAX0.4 MG ORAL; +ZOLOFT50 MG ORAL
--- NOTE | 2019-11-25 10:18 | Emergency Room Report ---
History of Present Illness General Chief Complaint: Asthma Source: Patient Present Illness HPI Disclaimer: Please note that this report is being documented using DRAGON technology. This can lead to erroneous entry secondary to incorrect interpretation by the dictating instrument. HPI: 79-year-old male with a history of COPD, asthma, diastolic heart failure, CVA, hypertension presents for evaluation of lower extremity swelling, shortness of breath and cough. Symptoms worsening over the past 3 to 4 days. Reports increased sputum production but denies fever or chills. Reports mild shortness of breath and midsternal pressure. He has helped the pressure in the past, typically comes and goes. Has been using his albuterol inhaler more over the past week. Estimates 3-4 times daily. Denies recent steroids or antibiotic use. He also notes worsening lower extremity pain and swelling. Denies any fall or injury. Patient is also concerned about loose stools lately. He states he is sometimes incontinent of stool when he urinates. Other times he has constipation. He believes this is a medication complication from his previous hospital admission when he was given a laxative. Denies blood or melena in stool. Denies dysuria, hematuria or urinary retention. Denies lower extremity weakness. PMH: COPD, asthma, hypertension, hyperlipidemia, CVA, diastolic heart failure PSH: Reviewed Allergies: Denied Social Hx: Quit smoking 12 years ago Allergies: Coded Allergies: No Known Allergies (Unverified , 08/14/19) COVID-19 Screening Contact w/high risk pt: No Recent Travel to affected area: No Experienced COVID-19 symptoms?: Yes COVID-19 symptoms experienced: Shortness of Breath COVID-19 Testing performed REFRIGERATOR GLAZIER: No Nursing Documentation-PMH Past Medical History: No History, Except For Hx Cardiac Problems: Yes Hx Hypertension: Yes Hx Asthma: Yes - bronchitis Hx COPD: Yes Hx Cancer: No Hx Gastrointestinal Problems: No Hx Neurological Problems: Yes Hx Cerebrovascular Accident: Yes Hx Dizziness: Yes Hx Headaches: Yes Hx Weakness: Yes Hx Fatigue: Yes Review of Systems All Other Systems: negative except mentioned in HPI Physical Exam Vital Signs Date Time Temp Pulse Resp B/P (MAP) Pulse Ox O2 Delivery O2 Flow Rate FiO2 11/25/19 10:01 98.1 99 20 143/79 (100) 95 Room Air General: Awake and alert, no acute distress HEENT: NC/AT. EOMI. Chest Wall: Tenderness palpation over the sternum. No deformity. Cardiovascular: RRR. S1 and S2 normal. No murmur appreciated Resp: Normal work of breathing. No cough, wheezing or crackles appreciated Abdomen: Abdomen is soft, nondistended. Nontender Skin: Intact. No abrasions, laceration or rash over the exposed skin MSK: Normal tone and bulk. Moving all extremities. No obvious deformity. Bilateral tense lower extremity edema. Left greater than right. Mild tenderness bilaterally. Neuro: Awake and alert. Mentating appropriately. Medical Decision Making Diagnostic Impression: Primary Impression: COPD exacerbation Additional Impressions: Lower extremity edema Hypokalemia ER Course 79-year-old male with history of asthma/COPD, diastolic heart failure presenting for evaluation of lower extremity swelling, worsening cough, shortness of breath over the past week. Differential includes was not limited to COPD exacerbation, bronchitis, pneumonia, viral syndrome, CHF exacerbation, DVT, PE, ACS, arrhythmia, GERD, musculoskeletal chest wall pain to name a few. He is overall well-appearing arrives with stable vital signs. X-ray does not show any acute infiltrates. The patient received IV steroids. Daughter was elevated and an ultrasound was ordered however the patient is refusing ultrasound at this time. Potassium was low and the patient was given oral supplementation. He is also refusing Lasix. Remainder of labs within normal limits. I discussed with his medical team and the patient will be admitted to Dr. Crowley for management of COPD and lower extremity edema. Laboratory Tests Test 11/25/19 10:15 11/25/19 10:50 White Blood Count 9.2 K/UL (4.8-10.8) Red Blood Count 3.78 M/UL (4.70-6.10) L Hemoglobin 12.4 G/DL (14.2-18.0) L Hematocrit 35.7 % (42.0-52.0) L Mean Corpuscular Volume 94 FL (80-99) Mean Corpuscular Hemoglobin 32.7 PG (27.0-31.0) H Mean Corpuscular Hemoglobin Concent 34.6 G/DL (32.0-36.0) Red Cell Distribution Width 13.4 % (11.6-14.8) Platelet Count 170 K/UL (150-450) Mean Platelet Volume 5.5 FL (6.5-10.1) L Neutrophils (%) (Auto) 72.5 % (45.0-75.0) Lymphocytes (%) (Auto) 16.1 % (20.0-45.0) L Monocytes (%) (Auto) 10.6 % (1.0-10.0) H Eosinophils (%) (Auto) 0.2 % (0.0-3.0) Basophils (%) (Auto) 0.6 % (0.0-2.0) D-Dimer 1.04 mg/L FEU (0.00-0.49) H Sodium Level 144 MMOL/L (136-145) Potassium Level 2.9 MMOL/L (3.5-5.1) L Chloride Level 103 MMOL/L (98-107) Carbon Dioxide Level 27 MMOL/L (21-32) Anion Gap 14 mmol/L (5-15) Blood Urea Nitrogen 10 mg/dL (7-18) Creatinine 0.6 MG/DL (0.55-1.30) Estimated Glomerular Filtration Rate > 60 mL/min (>60) Glucose Level 82 MG/DL (74-106) Calcium Level 8.4 MG/DL (8.5-10.1) L Total Bilirubin 0.7 MG/DL (0.2-1.0) Aspartate Amino Transferase (AST) 34 U/L (15-37) Alanine Aminotransferase (ALT) 30 U/L (12-78) Alkaline Phosphatase 53 U/L (46-116) Troponin I 0.000 ng/mL (0.000-0.056) Pro-B-Type Natriuretic Peptide 277 pg/mL (0-125) H Total Protein 6.9 G/DL (6.4-8.2) Albumin 3.5 G/DL (3.4-5.0) Globulin 3.4 g/dL Albumin/Globulin Ratio 1.0 (1.0-2.7) Urine Color Yellow Urine Appearance Clear Urine pH 5 (4.5-8.0) Urine Specific [place] 1.020 (1.005-1.035) Urine Protein 2+ (NEGATIVE) H Urine Glucose (UA) Negative (NEGATIVE) Urine Ketones 2+ (NEGATIVE) H Urine Blood Negative (NEGATIVE) Urine Nitrite Negative (NEGATIVE) Urine Bilirubin 1+ (NEGATIVE) H Urine Ictotest Negative (NEGATIVE) Urine Urobilinogen 1 MG/DL (0.0-1.0) H Urine Leukocyte Esterase 1+ (NEGATIVE) H Urine RBC 0-2 /HPF (0 - 0) H Urine WBC 2-4 /HPF (0 - 0) Urine Squamous Epithelial Cells Occasional /LPF Urine Bacteria Occasional /HPF (NONE) EKG Diagnostic Results EKG Time: 10:15 Rate: normal Rhythm: NSR ST Segments: no acute changes Other Impression Sinus rhythm, normal axis, prolonged QTC at 490 ms, nonspecific ST wave changes. Rhythm Strip Diag. Results Rhythm Strip Time: 10:15 EP Interpretation: yes Rate: 90s Rhythm: NSR, no PVC's, no ectopy Chest X-Ray Diagnostic Results Chest X-Ray Diagnostic Results : Chest X-Ray Ordered: Yes # of Views/Limited/Complete: 1 View Indication: Shortness of Breath EP Interpretation: Yes Interpretation: no consolidation, no effusion, no pneumothorax, no acute cardiopulmonary disease Impression: No acute disease Electronically Signed by: Electronically signed by Dr. Noe Brown Last Vital Signs Date Time Temp Pulse Resp B/P (MAP) Pulse Ox O2 Delivery O2 Flow Rate FiO2 11/25/19 10:01 98.1 99 20 143/79 (100) 95 Room Air Disposition: ADMITTED INPATIENT Condition: Serious Noe Brown MD November 25, 2019 10:18
[2019-11-25 10:24] VITALS: BP 145/82
[2019-11-25 10:59] LABS: BASOPHILS % (AUTO) 0.6 % (0.0-2.0); EOSINOPHILS % (AUTO) 0.2 % (0.0-3.0); HEMATOCRIT 35.7 % (42.0-52.0); HEMOGLOBIN 12.4 G/DL (14.2-18.0); LYMPHOCYTES % (AUTO) 16.1 % (20.0-45.0); MEAN CORPUSCULAR VOLUME 94 FL (80-99); MONOCYTES % (AUTO) 10.6 % (1.0-10.0); NEUTROPHILS % (AUTO) 72.5 % (45.0-75.0); PLATELET COUNT 170 K/UL (150-450); RED BLOOD COUNT 3.78 M/UL (4.70-6.10); RED CELL DISTRIBUTION WIDTH 13.4 % (11.6-14.8); WHITE BLOOD COUNT 9.2 K/UL (4.8-10.8)
[2019-11-25 11:17] LABS: ANION GAP 14 mmol/L (5-15); BLOOD UREA NITROGEN 10 mg/dL (7-18); CALCIUM 8.4 MG/DL (8.5-10.1); CARBON DIOXIDE 27 MMOL/L (21-32); CHLORIDE 103 MMOL/L (98-107); CREATININE 0.6 MG/DL (0.55-1.30); POTASSIUM 2.9 MMOL/L (3.5-5.1); SODIUM 144 MMOL/L (136-145)
[2019-11-25 11:20] LABS: APPEARANCE,URINE CLEAR; BILIRUBIN, URINE 1+ (NEGATIVE); GLUCOSE, URINE (UA) NEGATIVE (NEGATIVE); KETONES,URINE 2+ (NEGATIVE); LEUKOCYTE ESTERASE ,URINE 1+ (NEGATIVE); NITRITE,URINE NEGATIVE (NEGATIVE); PH,URINE 5 (4.5-8.0); PROTEIN,URINE 2+ (NEGATIVE); UROBILINOGEN,URINE 1 MG/DL (0.0-1.0)
[2019-11-25 11:22] LABS: COLOR,URINE YELLOW
[2019-11-25 11:28] LABS: ALANINE AMINOTRANSFERASE 30 U/L (12-78); ALBUMIN 3.5 G/DL (3.4-5.0); ALKALINE PHOSPHATASE 53 U/L (46-116); ASPARTATE AMINO TRANSFERASE 34 U/L (15-37); BILIRUBIN,TOTAL 0.7 MG/DL (0.2-1.0)
[2019-11-25] MEDS ORDERED: Solu-MEDROL 125mg Inj IVP ONE (11:45)
[2019-11-25 12:40] VITALS: BP 149/85
--- NOTE | 2019-11-25 13:27 | Consultation ---
History of Present Illness General Date patient seen: November 25, 2019 Chief Complaint: Asthma Present Illness HPI 79-year-old male with a history of chronic obstructive pulmonary disease, alcohol abuse, hypertension, presents to the hospital with several days of cough, congestion, and shortness of breath as well as chest pain. He denied any fevers, chills, rhinorrhea. He does have cough, but denies , PND, or orthopnea. He received IV Solu-Medrol and breathing treatments in ER. He had pedal edema and positive D-dimer but refused US of legs. He is [place] [facility]. Allergies: Coded Allergies: No Known Allergies (Unverified , 08/14/19) Medication History Scheduled Acetaminophen* (Acetaminophen Extra Strength*), 500 MG ORAL Q6H Albuterol Sulfate* (Albuterol Sulfate Mdi*), 2 PUFF INH Q4H Albuterol Sulfate* (Albuterol Sulfate Mdi*), 2 PUFF INH Q3H Fluticasone/Salmeterol (Advair 250-50 Diskus), 1 PUFF INH BID, (Reported) Sertraline Hcl* (Zoloft*), 25 MG ORAL DAILY Tamsulosin HCl (Flomax), 0.4 MG ORAL DAILY Scheduled PRN Albuterol Sulfate* (Albuterol Sulfate Mdi*), 2 PUFF INH Q4H PRN for For Cough Oxycodone Hcl* (Oxycodone Hcl*), 30 MG ORAL Q4H PRN for For Pain, (Reported) Patient History Healthcare decision maker Resuscitation status Advanced Directive on File Past Medical/Surgical History Past Medical/Surgical History: (1) Chronic back pain (2) Peripheral edema (3) History of CVA (cerebrovascular accident) (4) DJD (degenerative joint disease) (5) Peripheral neuropathy (6) History of cocaine abuse (7) Tobacco dependence (8) Emphysema (9) Pulmonary nodule Review of Systems All Other Systems: negative except mentioned in HPI Physical Exam General Appearance: WD/WN, no apparent distress Lines, tubes and drains: peripheral HEENT: normocephalic, atraumatic Neck: non-tender, normal alignment Respiratory/Chest: chest wall non-tender, rhonchi - left, rhonchi - right Cardiovascular/Chest: normal peripheral pulses, normal rate Abdomen: normal bowel sounds, non tender Extremities: normal range of motion, non-tender Neurologic: early interventionist II-XII grossly normal Last 24 Hour Vital Signs Date Time Temp Pulse Resp B/P (MAP) Pulse Ox O2 Delivery O2 Flow Rate FiO2 11/25/19 10:24 97 20 Room Air 11/25/19 10:24 98.1 96 20 145/82 95 Room Air 11/25/19 10:01 98.1 99 20 143/79 (100) 95 Room Air Laboratory Tests Test 11/25/19 10:15 11/25/19 10:50 White Blood Count 9.2 K/UL (4.8-10.8) Red Blood Count 3.78 M/UL (4.70-6.10) L Hemoglobin 12.4 G/DL (14.2-18.0) L Hematocrit 35.7 % (42.0-52.0) L Mean Corpuscular Volume 94 FL (80-99) Mean Corpuscular Hemoglobin 32.7 PG (27.0-31.0) H Mean Corpuscular Hemoglobin Concent 34.6 G/DL (32.0-36.0) Red Cell Distribution Width 13.4 % (11.6-14.8) Platelet Count 170 K/UL (150-450) Mean Platelet Volume 5.5 FL (6.5-10.1) L Neutrophils (%) (Auto) 72.5 % (45.0-75.0) Lymphocytes (%) (Auto) 16.1 % (20.0-45.0) L Monocytes (%) (Auto) 10.6 % (1.0-10.0) H Eosinophils (%) (Auto) 0.2 % (0.0-3.0) Basophils (%) (Auto) 0.6 % (0.0-2.0) D-Dimer 1.04 mg/L FEU (0.00-0.49) H Sodium Level 144 MMOL/L (136-145) Potassium Level 2.9 MMOL/L (3.5-5.1) L Chloride Level 103 MMOL/L (98-107) Carbon Dioxide Level 27 MMOL/L (21-32) Anion Gap 14 mmol/L (5-15) Blood Urea Nitrogen 10 mg/dL (7-18) Creatinine 0.6 MG/DL (0.55-1.30) Estimat Glomerular Filtration Rate > 60 mL/min (>60) Glucose Level 82 MG/DL (74-106) Calcium Level 8.4 MG/DL (8.5-10.1) L Total Bilirubin 0.7 MG/DL (0.2-1.0) Aspartate Amino Transf (AST/SGOT) 34 U/L (15-37) Alanine Aminotransferase (ALT/SGPT) 30 U/L (12-78) Alkaline Phosphatase 53 U/L (46-116) Troponin I 0.000 ng/mL (0.000-0.056) Pro-B-Type Natriuretic Peptide 277 pg/mL (0-125) H Total Protein 6.9 G/DL (6.4-8.2) Albumin 3.5 G/DL (3.4-5.0) Globulin 3.4 g/dL Albumin/Globulin Ratio 1.0 (1.0-2.7) Urine Color Yellow Urine Appearance Clear Urine pH 5 (4.5-8.0) Urine Specific [place] 1.020 (1.005-1.035) Urine Protein 2+ (NEGATIVE) H Urine Glucose (UA) Negative (NEGATIVE) Urine Ketones 2+ (NEGATIVE) H Urine Blood Negative (NEGATIVE) Urine Nitrite Negative (NEGATIVE) Urine Bilirubin 1+ (NEGATIVE) H Urine Ictotest Negative (NEGATIVE) Urine Urobilinogen 1 MG/DL (0.0-1.0) H Urine Leukocyte Esterase 1+ (NEGATIVE) H Urine RBC 0-2 /HPF (0 - 0) H Urine WBC 2-4 /HPF (0 - 0) Urine Squamous Epithelial Cells Occasional /LPF Urine Bacteria Occasional /HPF (NONE) Height (Feet): 6 Weight (Pounds): 180 Medications Current Medications Medications (Trade) Dose Ordered Sig/[place] Route PRN Reason Start Time Stop Time Status Last Admin Dose Admin Albuterol/ Ipratropium (Albuterol/ Ipratropium) 3 ml EVERY 4 HOURS PRN HHN dyspnea 11/25/19 12:30 11/30/19 12:29 UNV Dextrose (Dextrose 50%) 25 ml Q30M PRN IV Hypoglycemia 11/25/19 12:30 02/23/20 12:29 UNV Dextrose (Dextrose 50%) 50 ml Q30M PRN IV Hypoglycemia 11/25/19 12:30 02/23/20 12:29 UNV Heparin Sodium (Porcine) (Heparin 5000 units/ml) 5,000 units EVERY 12 HOURS SUBQ 11/25/19 21:00 01/09/20 20:59 UNV Lorazepam (Ativan 2mg/ml 1ml) 0.5 mg Q4H PRN IV For Anxiety 11/25/19 12:30 12/02/19 12:29 UNV Methylprednisolone Sodium Succinate (Solu-MEDROL) 60 mg EVERY 6 HOURS IV 11/25/19 18:00 02/23/20 17:59 UNV Nitroglycerin (Ntg) 0.4 mg Q5M X 3 DOSES PRN SL Prn Chest Pain 11/25/19 12:30 12/25/19 12:29 UNV Ondansetron HCl (Zofran) 4 mg Q6H PRN IVP Nausea & Vomiting 11/25/19 12:30 12/25/19 12:29 UNV Oxycodone HCl (Roxicodone) 30 mg Q4H PRN ORAL For Pain 11/25/19 12:30 12/02/19 12:29 UNV Piperacillin Sod/ Tazobactam Sod 2.25 gm/Dextrose 55 ml @ 110 mls/hr EVERY 8 HOURS IV 11/25/19 14:00 11/30/19 13:59 UNV Promethazine HCl/ Codeine (Phenergan with Codeine) 5 ml EVERY 6 HOURS PRN ORAL cough 11/25/19 12:30 12/25/19 12:29 UNV Sertraline HCl (Zoloft) 25 mg DAILY ORAL 11/26/19 09:00 12/26/19 08:59 UNV Tamsulosin HCl (Flomax) 0.4 mg DAILY ORAL 11/26/19 09:00 12/26/19 08:59 UNV Temazepam (Restoril) 15 mg HSPRN PRN ORAL Insomnia 11/25/19 12:30 12/02/19 12:29 UNV Theophylline (Rigoberto-Dur) 100 mg EVERY 12 HOURS ORAL 11/25/19 21:00 02/23/20 20:59 UNV Assessment/Plan Problem List: (1) Acute exacerbation of chronic obstructive airways disease ICD Codes: J44.1 - Acute exacerbation of chronic obstructive airways disease SNOMED: 678372044 (2) Acute bronchitis ICD Codes: J20.9 - Acute bronchitis, unspecified SNOMED: 81820584 (3) Pulmonary nodule ICD Codes: R91.1 - Solitary pulmonary nodule SNOMED: 775422896 (4) Emphysema ICD Codes: J43.9 - Emphysema SNOMED: 15408751 (5) Lower extremity edema ICD Codes: R60.0 - Localized edema SNOMED: 137532331 (6) History of cocaine abuse ICD Codes: F14.10 - Cocaine abuse, uncomplicated SNOMED: 356358972 (7) History of CVA (cerebrovascular accident) ICD Codes: Z86.73 - History of stroke SNOMED: 262520498 (8) Chronic back pain ICD Codes: G89.29 - Other chronic pain; M54.9 - Chronic back pain SNOMED: 125130128 Assessment/Plan: respiratory treatment check sputum rule out COVID iv steroids iv abx titrate fio2 to sat of 92% dvt prophylaxis. Farhan Ortega MD November 25, 2019 13:27
[2019-11-25] MEDS ORDERED: Piperacillin/Tazobactam 2.25 GM in D5W 55 ML IV SCH (14:00)
[2019-11-25] MEDS ORDERED: LORazepam Inj 2mg/ml 1ml IV PRN (14:30)
[2019-11-25] MEDS ORDERED: Promethazine/Codeine 5ml UD ORAL PRN (14:30)
[2019-11-25] MEDS ORDERED: Nitroglycerin Subl 0.4mg tab SL PRN (14:30)
[2019-11-25] MEDS ORDERED: Albuterol/Ipratropium 3ml neb HHN PRN (15:00)
[2019-11-25] MEDS: Zoysn 3.37gm in NS 100ML IVPB SCH ×2 (15:42→22:00)
[2019-11-25] MEDS: oxyCODONE 15mg IR tab ORAL PRN (15:57)
[2019-11-25 16:00] VITALS: BP 149/90
[2019-11-25] MEDS: Solu-MEDROL 125mg Inj IV SCH (17:34)
--- NOTE | 2019-11-25 19:31 | Cardiology Progress Note ---
Assessment/Plan Assessment/Plan [id number] copd diastolic dysfucntion substance ablut hs tobacco abuse uhs htn chronic ashlee probnp not sig elelated keep on diuretic will obtian old echo reprot Objective Last 24 Hour Vital Signs Date Time Temp Pulse Resp B/P (MAP) Pulse Ox O2 Delivery O2 Flow Rate FiO2 11/25/19 16:00 98.1 90 20 149/90 (109) 94 11/25/19 14:17 Room Air 11/25/19 14:05 97.5 94 20 148/89 95 Room Air 11/25/19 12:40 97.8 88 20 149/85 94 Room Air 11/25/19 10:24 97 20 Room Air 11/25/19 10:24 98.1 96 20 145/82 95 Room Air 11/25/19 10:01 98.1 99 20 143/79 (100) 95 Room Air Laboratory Tests Test 11/25/19 10:15 11/25/19 10:50 White Blood Count 9.2 K/UL (4.8-10.8) Red Blood Count 3.78 M/UL (4.70-6.10) L Hemoglobin 12.4 G/DL (14.2-18.0) L Hematocrit 35.7 % (42.0-52.0) L Mean Corpuscular Volume 94 FL (80-99) Mean Corpuscular Hemoglobin 32.7 PG (27.0-31.0) H Mean Corpuscular Hemoglobin Concent 34.6 G/DL (32.0-36.0) Red Cell Distribution Width 13.4 % (11.6-14.8) Platelet Count 170 K/UL (150-450) Mean Platelet Volume 5.5 FL (6.5-10.1) L Neutrophils (%) (Auto) 72.5 % (45.0-75.0) Lymphocytes (%) (Auto) 16.1 % (20.0-45.0) L Monocytes (%) (Auto) 10.6 % (1.0-10.0) H Eosinophils (%) (Auto) 0.2 % (0.0-3.0) Basophils (%) (Auto) 0.6 % (0.0-2.0) D-Dimer 1.04 mg/L FEU (0.00-0.49) H Sodium Level 144 MMOL/L (136-145) Potassium Level 2.9 MMOL/L (3.5-5.1) L Chloride Level 103 MMOL/L (98-107) Carbon Dioxide Level 27 MMOL/L (21-32) Anion Gap 14 mmol/L (5-15) Blood Urea Nitrogen 10 mg/dL (7-18) Creatinine 0.6 MG/DL (0.55-1.30) Estimat Glomerular Filtration Rate > 60 mL/min (>60) Glucose Level 82 MG/DL (74-106) Calcium Level 8.4 MG/DL (8.5-10.1) L Total Bilirubin 0.7 MG/DL (0.2-1.0) Aspartate Amino Transf (AST/SGOT) 34 U/L (15-37) Alanine Aminotransferase (ALT/SGPT) 30 U/L (12-78) Alkaline Phosphatase 53 U/L (46-116) Troponin I 0.000 ng/mL (0.000-0.056) Pro-B-Type Natriuretic Peptide 277 pg/mL (0-125) H Total Protein 6.9 G/DL (6.4-8.2) Albumin 3.5 G/DL (3.4-5.0) Globulin 3.4 g/dL Albumin/Globulin Ratio 1.0 (1.0-2.7) Urine Color Yellow Urine Appearance Clear Urine pH 5 (4.5-8.0) Urine Specific [place] 1.020 (1.005-1.035) Urine Protein 2+ (NEGATIVE) H Urine Glucose (UA) Negative (NEGATIVE) Urine Ketones 2+ (NEGATIVE) H Urine Blood Negative (NEGATIVE) Urine Nitrite Negative (NEGATIVE) Urine Bilirubin 1+ (NEGATIVE) H Urine Ictotest Negative (NEGATIVE) Urine Urobilinogen 1 MG/DL (0.0-1.0) H Urine Leukocyte Esterase 1+ (NEGATIVE) H Urine RBC 0-2 /HPF (0 - 0) H Urine WBC 2-4 /HPF (0 - 0) Urine Squamous Epithelial Cells Occasional /LPF Urine Bacteria Occasional /HPF (NONE) Urine Opiates Screen Negative (NEGATIVE) Urine Barbiturates Screen Negative (NEGATIVE) Phencyclidine (PCP) Screen Negative (NEGATIVE) Urine Amphetamines Screen Negative (NEGATIVE) Urine Benzodiazepines Screen Negative (NEGATIVE) Urine Cocaine Screen Negative (NEGATIVE) Urine Marijuana (THC) Screen Negative (NEGATIVE) Danantoniarad,Taqueria S. MD November 25, 2019 19:31
[2019-11-25 20:00] VITALS: BP 146/93
[2019-11-25] MEDS: Theophylline ER 100mg ORAL SCH (20:45)
[2019-11-25] MEDS: Heparin 5000 units/ml inj SUBQ SCH (21:05)
[2019-11-26] VITALS: BP 142/91
[2019-11-26 04:00] VITALS: BP 148/95
--- NOTE | 2019-11-26 04:29 | Consultation ---
DATE OF CONSULTATION: 11/25/2019 CARDIOLOGY CONSULTATION CONSULTING PHYSICIAN: Taqueria Covarrubias MD. REFERRING PHYSICIAN: Farhan Ortega MD. REASON FOR REFERRAL: Leg swelling. HISTORY OF PRESENT ILLNESS: This is an elderly gentleman who has multiple medical problems. He states he is here because he got COPD and he has got shortness of breath. He said he has been in the hospital here at some point recently in the past 2 to 3 days and in fact he just got out of the hospital last night. He thinks the hospital is [facility] that he was just discharged from. Unfortunately, he is sort of confused I guess and he is not accurate about the history he is providing. The patient has had several hospitalizations here at [facility]. Has shortness of breath on exertion. Not appear to have any shortness of breath waking up at night. Denies any dizziness or lightheadedness. In fact, on questioning he became irritated and decided not to answer questions. The only thing he seems to be getting is that his legs are swollen and he has COPD. The review of the emergency room provider's sheet indicates that the patient was complaining of shortness of breath and cough. Symptoms apparently worsened over 3 or 4 days ago. Increased sputum production, but no fevers or chills and some midsternal pressure. He has had this pressure in the past coming and going and has been using inhalers to help him with that. He uses inhalers 3 or 4 times a day and he has been noticing that his lower extremities have been getting worse. Denies any falls. He apparently was providing information that he was having some loose stools. REVIEW OF SYSTEMS: GASTROINTESTINAL: On detailed questioning of review of systems, he denies any nausea or vomiting and became very upset when I asked if he has had any black or bloody poop, but refused to answer. GENITOURINARY: Denies any discomfort on urination. PULMONARY: Positive for coughing. Positive for shortness of breath. CONSTITUTIONAL: Denies any fevers or chills. NEUROLOGIC: Negative. PAST MEDICAL HISTORY: Positive for history of COPD, asthma, hypertension, hyperlipidemia, diastolic heart failure, CVA, and lower extremity edema. He has a history of hypercapnic respiratory failure and possible asthma and he has previously apparently been on BiPAP therapy according to the [facility] records. He has had exacerbations of COPD. He has got personality disorder as well as insomnia. He also has a history of hypertension as well as stroke, substance abuse, chronic lower extremity edema, diastolic dysfunction, pulmonary nodule, tobacco abuse, cocaine abuse, fatty liver, diverticulosis, peripheral neuropathy, and depression. SOCIAL HISTORY: Apparently used to smoke and use drugs, although he got very upset me asking those questions, so unfortunately that the answer to those questions was not completely clear. [facility] records do, however, indicate the patient has history of 2 packs per day for 60 years. MEDICATIONS: Reported elsewhere. PHYSICAL EXAMINATION: GENERAL: Shows to be elderly gentleman, in no respiratory distress. COVID status is still pending. LUNGS: According to the emergency physician did not show any wheezing or crackles. CARDIAC: Regular rhythm. No murmurs appreciated. ABDOMEN: Soft. EXTREMITIES: Shows bilateral dense lower extremity edema, left greater than right with mild tenderness bilaterally. NEUROLOGICAL: He is awake and alert and responsive and very agitable. LABORATORY AND DIAGNOSTIC DATA: White count is 9.3, hemoglobin 12.4, and platelet count of 170. His chemistries, sodium 144, potassium 2.9, chloride 102, bicarb 27, BUN of 10, creatinine 0.6, and glucose 82. His calcium is 8.4. Troponin 0.00. AST and ALT within normal limits. His proBNP is only 277. On direct comparison, he has had levels as high as 2463 on prior admission here back in August of 2019. His first set of cardiac enzymes are negative. His coags, D-dimer was elevated at 1.04. His tox screen was negative. His urinalysis shows 1+ leukocyte esterase, 0 to 2 rbc's, 2 to 4 wbc's. His imaging, chest x-ray not available, but x-ray according to the emergency room physician report did not show any acute infiltrates. The patient's electrocardiogram shows sinus rhythm with normal axis, no significant ST or T-wave abnormalities. ASSESSMENT AND PLAN: 1. Edema, chronic. 2. COPD with history of the same. 3. History of diastolic dysfunction. 4. History of CVA. 5. Substance abuse history. 6. History of hypercapnic respiratory failure. 7. Hypertension. This patient was seen in cardiac consultation. The patient's main symptom appears to be shortness of breath. His proBNP is not significantly elevated. He is receiving some diuretics, which will be continued for the time being and his COPD medications as per Dr. Ortega was albuterol. His pre-admission medications unfortunately are not clear, but include Tylenol, albuterol, Advair, oxycodone, sertraline, and Flomax. Previously his medications included Lasix 40 mg daily as well as aspirin 81 mg daily from a cardiac point of view as well as theophylline. His last lipid panel showed his total cholesterol to be 171, but that was 2016 worthwhile repeating. The patient's blood pressure appears to be on the high side. His last echocardiogram report showed an ejection fraction of 60%, although I am not able to 94% saturation on room air. His usual medications should be continued and repeat laboratories will be ordered for tomorrow morning. Taqueria Covarrubias M.D. DR: EVENS JOB#: [id number] CC:
[2019-11-26] MEDS: Solu-MEDROL 125mg Inj IV SCH ×4 (06:00→18:00)
[2019-11-26] MEDS: Zoysn 3.37gm in NS 100ML IVPB SCH ×2 (06:00→06:27)
[2019-11-26 08:00] VITALS: BP 129/73
[2019-11-26] MEDS: Tamsulosin 0.4mg cap ORAL SCH (08:11)
[2019-11-26] MEDS: Theophylline ER 100mg ORAL SCH ×2 (08:12→21:59)
[2019-11-26] MEDS: Heparin 5000 units/ml inj SUBQ SCH ×2 (08:16→22:00)
[2019-11-26] MEDS: Sertraline 50mg tab ORAL SCH (08:16)
[2019-11-26] MEDS: oxyCODONE 15mg IR tab ORAL PRN ×2 (10:39→17:09)
[2019-11-26 11:44] VITALS: BP 138/87
--- NOTE | 2019-11-26 13:18 | Pulmonology Progress Note ---
Subjective ROS Limited/Unobtainable: No Respiratory: Reports: productive cough, sputum Allergies: Coded Allergies: No Known Allergies (Unverified , 08/14/19) Objective Last 24 Hour Vital Signs Date Time Temp Pulse Resp B/P (MAP) Pulse Ox O2 Delivery O2 Flow Rate FiO2 11/26/19 11:44 97.6 101 21 138/87 (104) 96 11/26/19 08:00 97.9 104 21 129/73 (91) 95 11/26/19 04:00 98 11/26/19 04:00 97.5 110 21 148/95 (112) 93 11/26/19 00:00 97.7 108 20 142/91 (108) 93 11/26/19 00:00 123 11/25/19 21:00 Room Air 11/25/19 20:00 126 11/25/19 20:00 97.9 105 21 146/93 (110) 92 11/25/19 16:00 98.1 90 20 149/90 (109) 94 11/25/19 14:17 Room Air 11/25/19 14:05 97.5 94 20 148/89 95 Room Air Intake and Output 11/25/19 11/26/19 19:00 07:00 Intake Total 480 ml Balance 480 ml Intake Oral 480 ml # Voids 1 HEENT: normocephalic, atraumatic, PERRL Respiratory/Chest: chest wall non-tender, crackles/rales Cardiovascular: normal peripheral pulses, normal rate, regular rhythm Abdomen: normal bowel sounds, soft, non tender Genitourinary: normal external genitalia 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 Current Medications Medications (Trade) Dose Ordered Sig/Aguila Route PRN Reason Start Time Stop Time Status Last Admin Dose Admin Albuterol/ Ipratropium (Albuterol/ Ipratropium) 3 ml Q4H PRN HHN dyspnea 11/25/19 15:00 11/30/19 14:59 Dextrose (Dextrose 50%) 25 ml Q30M PRN IV Hypoglycemia 11/25/19 14:30 02/23/20 14:29 Dextrose (Dextrose 50%) 50 ml Q30M PRN IV Hypoglycemia 11/25/19 14:30 02/23/20 14:29 Heparin Sodium (Porcine) (Heparin 5000 units/ml) 5,000 units EVERY 12 HOURS SUBQ 11/25/19 21:00 01/09/20 20:59 11/26/19 08:16 Lorazepam (Ativan 2mg/ml 1ml) 0.5 mg Q4H PRN IV For Anxiety 11/25/19 14:30 12/02/19 14:29 Methylprednisolone Sodium Succinate (Solu-MEDROL) 60 mg EVERY 6 HOURS IV 11/25/19 18:00 02/23/20 17:59 11/26/19 12:58 Nitroglycerin (Ntg) 0.4 mg Q5M X 3 DOSES PRN SL Prn Chest Pain 11/25/19 14:30 12/25/19 14:29 Ondansetron HCl (Zofran) 4 mg Q6H PRN IVP Nausea & Vomiting 11/25/19 14:30 12/25/19 14:29 Oxycodone HCl (Roxicodone) 30 mg Q4H PRN ORAL For Pain 11/25/19 14:30 12/02/19 14:29 11/26/19 10:39 Piperacillin Sod/ Tazobactam Sod 3.375 gm/Sodium Chloride 110 ml @ 27.5 mls/hr EVERY 6 HOURS IVPB 11/26/19 18:00 12/03/19 13:59 UNV Promethazine HCl/ Codeine (Phenergan with Codeine) 5 ml Q6H PRN ORAL cough 11/25/19 14:30 12/25/19 14:29 Sertraline HCl (Zoloft) 25 mg DAILY ORAL 11/26/19 09:00 12/26/19 08:59 Tamsulosin HCl (Flomax) 0.4 mg DAILY ORAL 11/26/19 09:00 12/26/19 08:59 11/26/19 08:11 Temazepam (Restoril) 15 mg HSPRN PRN ORAL Insomnia 11/25/19 21:00 12/02/19 20:59 Theophylline (Rigoberto-Dur) 100 mg EVERY 12 HOURS ORAL 11/25/19 21:00 02/23/20 20:59 11/26/19 08:12 Assessment/Plan Problems: (1) Acute exacerbation of chronic obstructive airways disease (2) Acute bronchitis (3) Pulmonary nodule (4) Emphysema (5) Lower extremity edema (6) History of cocaine abuse (7) History of CVA (cerebrovascular accident) (8) Chronic back pain Assessment/Plan continue respiratory treatment check sputum rule out COVID, still pending iv steroids iv abx titrate fio2 to sat of 92% dvt prophylaxis. Farhan Ortega MD November 26, 2019 13:18
[2019-11-26] MEDS ORDERED: Zoysn 3.37gm in NS 100ML IVPB SCH (14:00)
[2019-11-26] MEDS: Piperacillin/Tazobactam 3.375 GM in NS 110 ML IVPB SCH ×2 (14:40→22:00)
[2019-11-26 16:00] VITALS: BP 147/100
--- NOTE | 2019-11-26 16:20 | History & Physical ---
History and Physical History & Physicial Ishmael Crowley MD November 26, 2019 16:20
--- NOTE | 2019-11-26 16:53 | Diagnostic Imaging Report ---
Procedure: XRAY Chest 1v Reason for study: Reason For Exam: SOB Comparison films: 08/30/2019. FINDINGS: A single one view chest is obtained. Vascularity is normal. Minimal linear scarring right lung base. There is mild retrocardiac infiltrate. Cardiac and mediastinal silhouette are within normal limits. CP angles are sharp. The bony thorax appear unremarkable. IMPRESSION: Left basilar retrocardiac infiltrate.
--- NOTE | 2019-11-26 18:52 | Cardiology Progress Note ---
Assessment/Plan Assessment/Plan 1. Edema, chronic. 2. COPD with history of the same. 3. History of diastolic dysfunction. 4. History of CVA. 5. Substance abuse history. 6. History of hypercapnic respiratory failure. 7. Hypertension he is walking around in his room not seem to be in any respiratory distress keep on oral diuretic bp is elevated will start on acei low dose Subjective Cardiovascular: Reports: chest pain - occasioanl short [id number] sof Respiratory: Reports: cough, shortness of breath - is better Gastrointestinal/Abdominal: Reports: abdominal pain Objective Last 24 Hour Vital Signs Date Time Temp Pulse Resp B/P (MAP) Pulse Ox O2 Delivery O2 Flow Rate FiO2 11/26/19 16:00 97.6 98 21 147/100 (116) 97 11/26/19 11:44 97.6 101 21 138/87 (104) 96 11/26/19 11:40 96 11/26/19 11:40 96 11/26/19 09:00 Room Air 11/26/19 08:00 97.9 104 21 129/73 (91) 95 11/26/19 07:49 98 11/26/19 04:00 98 11/26/19 04:00 97.5 110 21 148/95 (112) 93 11/26/19 00:00 97.7 108 20 142/91 (108) 93 11/26/19 00:00 123 11/25/19 21:00 Room Air 11/25/19 20:00 126 11/25/19 20:00 97.9 105 21 146/93 (110) 92 General Appearance: no apparent distress, patient on isolation Neck: supple Extremities: trace edema Intake and Output 11/25/19 11/26/19 19:00 07:00 Intake Total 480 ml Balance 480 ml Intake Oral 480 ml # Voids 1 Taqueria Covarrubias MD November 26, 2019 18:52
[2019-11-26] MEDS ORDERED: LORazepam Inj 2mg/ml 1ml IV PRN (19:45)
[2019-11-26 20:00] VITALS: BP 135/91
--- NOTE | 2019-11-26 22:30 | History and Physical Report ---
DATE OF ADMISSION: 11/25/2019 CHIEF COMPLAINT: Shortness of breath. HISTORY OF PRESENT ILLNESS: This is a 79-year-old gentleman with past medical history significant for COPD, asthma, alcohol abuse, hypertension, history of prior stroke, dyslipidemia who presented to the hospital complaining about chest congestion, shortness of breath, cough as well as chest pain. He denies any fever, chills, rhinorrhea, however, has been having a cough. He denies any dyspnea on exertion or fall. Patient stated that he has recently fallen several days ago and sustained injury to the left side of face. He does not recall that he had any syncope or any seizure activity. Shortly after initial evaluation in the emergency department, patient was admitted to the hospital with shortness of breath and cough, possible COVID infection as well as acute COPD exacerbation and acute bronchitis. PAST MEDICAL HISTORY/PAST SURGICAL HISTORY: As above, history of COPD, asthma, alcohol abuse, hypertension, dyslipidemia, prior history of stroke. Patient has chronic back pain pedal edema, degenerative joint disease, degenerative disk disease, peripheral neuropathy, prior history of cocaine abuse, tobacco abuse, emphysema, pulmonary nodule. MEDICATIONS: At home please refer to medication reconciliation. ALLERGIES: No known drug allergies. SOCIAL HISTORY: Patient has a history of alcohol abuse, cocaine abuse and tobacco abuse. REVIEW OF SYSTEMS: Mostly as above. Denies any dysuria, frequency, or hematuria. Complained of shortness of breath. Denies any hemoptysis or hematochezia. Denies any loss of conscious. Complained about pedal edema. Denies any double vision. PHYSICAL EXAMINATION: VITAL SIGNS: On admission, temperature 98.1, pulse of 99, respirations 20, blood pressure 143/79. GENERAL: Patient awake, responsive, no acute distress. HEAD AND NECK: Pupils are equal and reactive to light. Extraocular movements intact. Patient has left eye hematoma and ecchymosis was noted around the periorbital area. Neck was supple. Positive JVD. LUNGS: Good air entry. Decreased air in bases. Rhonchi left greater than right. No wheezes. HEART: S1, S2. Distant heart sounds. No murmur or gallops. ABDOMEN: Soft, nondistended, nontender. Positive bowel sounds. EXTREMITIES: No cyanosis or clubbing. +2 edema bilateral lower extremity, left greater than right. NEUROLOGIC: Cranial nerves II through XII are grossly intact. Patient moving all the extremities spontaneously. Gait, he is walking with front wheel walker, unsteady. RECTAL/GENITOURINARY: Refused and deferred. PSYCHIATRIC: Mood and affect is intact. LABORATORY DATA: On admission from the emergency department, WBC of 9.2, hemoglobin 12, hematocrit 35, platelets 170. Sodium 144, potassium 2.9, chloride 103, bicarb 27, BUN 10, creatinine 0.6, glucose is 82, calcium is 8.4. Total bilirubin of 0.7, AST of 34, ALT of 30. First troponin 0.00. BNP of 277. D-dimer is 1.04. Urine drug screen is negative. Urinalysis +2 protein, negative glucose, +2 ketone, +1 bilirubin. ASSESSMENT: 1. Shortness of breath and cough, most likely secondary to acute COPD exacerbation. However, cannot rule out COVID-19 infection. 2. Acute bronchitis. 3. Pulmonary nodule. 4. Chronic smoker with emphysema. 5. Bilateral lower extremity edema. 6. History of cocaine abuse. 7. History of CVA. 8. Chronic back pain. 9. Dyslipidemia. PLAN: Admit patient to monitored unit. We will follow up with Dr. Ortega, Pulmonary Critical Care consultation. Broad-spectrum antibiotics with Zosyn. Start patient on Solu-Medrol 60 mg IV q.6. Code status, Full Code. DVT prophylaxis, heparin subcutaneous. We will follow up with Cardiology consultation with Dr. Taqueria Covarrubias. Follow up with cultures and laboratory in the morning. Ishmael Crowley M.D. DR: NORAH JOB#: [id number] CC:
[2019-11-27] VITALS: BP 146/95
[2019-11-27] MEDS: Solu-MEDROL 125mg Inj IV SCH ×2 (00:53→06:00)
[2019-11-27] MEDS: Piperacillin/Tazobactam 3.375 GM in NS 110 ML IVPB SCH (06:00)
--- NOTE | 2019-11-27 07:11 | Pulmonology Progress Note ---
Subjective ROS Limited/Unobtainable: No Respiratory: Reports: productive cough, sputum Allergies: Coded Allergies: No Known Allergies (Unverified , 08/14/19) Subjective afebrile, labs pending for this am weak on RA pulse ox stable c/o gen weakness , remains in isolation until CoVID result back Objective Last 24 Hour Vital Signs Date Time Temp Pulse Resp B/P (MAP) Pulse Ox O2 Delivery O2 Flow Rate FiO2 11/27/19 00:00 98.1 93 21 146/95 (112) 94 11/27/19 00:00 68 11/26/19 21:00 Room Air 11/26/19 20:00 97.9 94 22 135/91 (106) 95 11/26/19 20:00 92 11/26/19 16:00 97.6 98 21 147/100 (116) 97 11/26/19 11:44 97.6 101 21 138/87 (104) 96 11/26/19 11:40 96 11/26/19 11:40 96 11/26/19 09:00 Room Air 11/26/19 08:00 97.9 104 21 129/73 (91) 95 11/26/19 07:49 98 Intake and Output 11/26/19 11/27/19 19:00 07:00 Intake Total 700.0 ml Balance 700.0 ml Intake Oral 480 ml IV Total 220.0 ml # Voids 3 # Bowel Movements 1 General Appearance: no acute distress HEENT: normocephalic, atraumatic, anicteric, mucous membranes moist Respiratory: no respiratory distress, decreased breath sounds, expiratory wheezing - few exp wheezes Cardiovascular: normal rate, no JVD Abdomen: normal bowel sounds, soft, non tender Extremities: pedal pulses normal, other - trace edema BLE Neurologic: alert, oriented x 3, responsive Musculoskeletal: normal muscle bulk Current Medications Medications (Trade) Dose Ordered Sig/Aguila Route PRN Reason Start Time Stop Time Status Last Admin Dose Admin Albuterol/ Ipratropium (Albuterol/ Ipratropium) 3 ml Q4H PRN HHN dyspnea 11/25/19 15:00 11/30/19 14:59 Dextrose (Dextrose 50%) 25 ml Q30M PRN IV Hypoglycemia 11/25/19 14:30 02/23/20 14:29 Dextrose (Dextrose 50%) 50 ml Q30M PRN IV Hypoglycemia 11/25/19 14:30 02/23/20 14:29 Heparin Sodium (Porcine) (Heparin 5000 units/ml) 5,000 units EVERY 12 HOURS SUBQ 11/25/19 21:00 01/09/20 20:59 11/26/19 22:00 Lisinopril (ZestriL) 10 mg DAILY ORAL 11/27/19 09:00 12/27/19 08:59 Lorazepam (Ativan 2mg/ml 1ml) 1 mg Q4H PRN IV For Anxiety 11/26/19 19:45 12/03/19 19:44 11/27/19 01:40 Methylprednisolone Sodium Succinate (Solu-MEDROL) 60 mg EVERY 6 HOURS IV 11/25/19 18:00 02/23/20 17:59 11/27/19 00:53 Nitroglycerin (Ntg) 0.4 mg Q5M X 3 DOSES PRN SL Prn Chest Pain 11/25/19 14:30 12/25/19 14:29 Ondansetron HCl (Zofran) 4 mg Q6H PRN IVP Nausea & Vomiting 11/25/19 14:30 12/25/19 14:29 Oxycodone HCl (Roxicodone) 30 mg Q4H PRN ORAL For Pain 11/25/19 14:30 12/02/19 14:29 11/26/19 17:09 Piperacillin Sod/ Tazobactam Sod 3.375 gm/Sodium Chloride 110 ml @ 27.5 mls/hr Q8HR IVPB 11/26/19 14:00 12/03/19 13:59 11/26/19 22:00 Promethazine HCl/ Codeine (Phenergan with Codeine) 5 ml Q6H PRN ORAL cough 11/25/19 14:30 12/25/19 14:29 Sertraline HCl (Zoloft) 25 mg DAILY ORAL 11/26/19 09:00 12/26/19 08:59 Tamsulosin HCl (Flomax) 0.4 mg DAILY ORAL 11/26/19 09:00 12/26/19 08:59 11/26/19 08:11 Temazepam (Restoril) 15 mg HSPRN PRN ORAL Insomnia 11/25/19 21:00 12/02/19 20:59 Theophylline (Rigoberto-Dur) 100 mg EVERY 12 HOURS ORAL 11/25/19 21:00 02/23/20 20:59 11/26/19 21:59 Assessment/Plan Assessment/Plan ASSESSMENT Acute COPD exacerbation Acute bronchitis Emphysema History of cocaine abuse History of CVA Chronic back pain Pulmonary nodules PLAN OF CARE tele isolation SARS-CoV-2 by PCR pending O2 to keep pulse ox > 90%. pulmonary toilet. IV steroids and start tapering SCX if able empiric abx fup with CXR trial of theophylline antitussive prn CT chest on prior admission revealed tiny pulmonary nodules, some of them disappear from previous exam/likely inflammatory pain management monitor BP last Echo with pEF 60% and RVSP of 34 ; no evidence of wall motion abnormality DVT prophylaxis bowel regimen supportive care case discussed and evaluated by supervising physician Mariana Canada NP November 27, 2019 07:11
[2019-11-27 08:00] VITALS: BP 142/94
[2019-11-27 08:59] LABS: HEMOGLOBIN 11.3 G/DL (14.2-18.0); MEAN CORPUSCULAR VOLUME 94 FL (80-99); PLATELET COUNT 157 K/UL (150-450); RED BLOOD COUNT 3.41 M/UL (4.70-6.10); RED CELL DISTRIBUTION WIDTH 12.5 % (11.6-14.8); WHITE BLOOD COUNT 7.8 K/UL (4.8-10.8)
[2019-11-27] MEDS ORDERED: Lisinopril 10mg tab ORAL SCH (09:00)
[2019-11-27 09:25] VITALS: BP 142/94
[2019-11-27] MEDS: Sertraline 50mg tab ORAL SCH (09:25)
[2019-11-27] MEDS: Tamsulosin 0.4mg cap ORAL SCH (09:25)
[2019-11-27] MEDS: Theophylline ER 100mg ORAL SCH (09:25)
[2019-11-27] MEDS: Heparin 5000 units/ml inj SUBQ SCH (09:28)
[2019-11-27 09:43] LABS: ALANINE AMINOTRANSFERASE 29 U/L (12-78); ALBUMIN 3.4 G/DL (3.4-5.0); ALBUMIN/GLOBULIN RATIO 1.1 (1.0-2.7); ALKALINE PHOSPHATASE 38 U/L (46-116); ANION GAP 9 mmol/L (5-15); ASPARTATE AMINO TRANSFERASE 22 U/L (15-37); BILIRUBIN,TOTAL 0.5 MG/DL (0.2-1.0); BLOOD UREA NITROGEN 17 mg/dL (7-18); CALCIUM 8.3 MG/DL (8.5-10.1); CARBON DIOXIDE 32 MMOL/L (21-32); CHLORIDE 101 MMOL/L (98-107); CREATININE 0.9 MG/DL (0.55-1.30); POTASSIUM 3.5 MMOL/L (3.5-5.1); SODIUM 142 MMOL/L (136-145)
--- NOTE | 2019-11-27 13:48 | Discharge Summary ---
Discharge Summary Hospital Course Date of Admission November 25, 2019 at 12:39 Date of Discharge November 27, 2019 at 13:13 Admitting Diagnosis COPD, EDEMA HPI Giojohanna Lopes is a 79 year old male who was admitted on November 25, 2019 at 12:39 for Copd, Edema Hospital Course Discharge Discharge Vital Signs Last Vital Signs Date Time Temp Pulse Resp B/P (MAP) Pulse Ox O2 Delivery O2 Flow Rate FiO2 11/27/19 09:25 142/94 11/27/19 09:00 Room Air 11/27/19 08:00 98.0 95 20 96 Discharge Disposition Patient was discharged to Ishmael Crowley MD November 27, 2019 13:48
[2019-11-27] MEDS ORDERED: Solu-MEDROL 125mg Inj IV SCH (14:00)
--- NOTE | 2019-11-28 04:44 | Discharge Summary ---
DATE OF ADMISSION: 11/25/2019 DATE OF DISCHARGE: 11/27/2019 HOSPITAL COURSE: This is a 79-year-old gentleman with past medical history significant for COPD, asthma, alcohol abuse, hypertension, prior history of stroke, and dyslipidemia, who presented to the hospital complaining about shortness of breath, chest congestion, and cough. Shortly after initial evaluation, the patient was admitted to the hospital with acute COPD exacerbation, possible COVID-19 infection as well as acute bronchitis. Throughout the hospital course, the patient was followed with Dr. Ortega, Pulmonary Critical Care, and started broad-spectrum antibiotic with Zosyn, and throughout the hospital course, the patient was followed with Dr. Taqueria Covarrubias, from Cardiology. The patient subsequently signed against medical advice and left the hospital today without completion of his tests. His COVID test is still pending and he signed against medical advice and left the hospital. FINAL DIAGNOSES: 1. Acute COPD exacerbation. 2. Rule out COVID-19 infection. 3. Acute bronchitis. 4. Pulmonary nodule. 5. Chronic smoker of emphysema. 6. Bilateral lower extremity edema. 7. History of cocaine abuse. 8. Hypertension. 9. Chronic back pain. 10. Dyslipidemia. 11. Hypertension. DISCHARGE MEDICATIONS: Continue home medication. DIET: Would be cardiac diet. The patient was advised to follow up with the primary doctor within one week, contact the hospital for results of COVID-19 test. I advised the patient if he feels worse, return to any hospital immediately. The patient left the hospital against medical advice (AMA). Ishmael Crowley M.D. DR: Tru JOB#: [id number] CC:
== END 2019-11-27 13:13 | disposition left against medical advice (07) | DRG 191 ==
LOC: EMR 10:05 → 2E 12:39 → EDBEDREQ 13:25 → 2E 11-27 12:08
DX: J44.0 Chronic obstructive pulmonary disease with (acute) lower respiratory infection (principal); I50.30 Unspecified diastolic (congestive) heart failure; J44.1 Chronic obstructive pulmonary disease with (acute) exacerbation; J20.9 Acute bronchitis, unspecified; Z86.73 Personal history of transient ischemic attack (TIA), and cerebral infarction without residual deficits; I11.0 Hypertensive heart disease with heart failure; F14.10 Cocaine abuse, uncomplicated; Z87.891 Personal history of nicotine dependence; E78.5 Hyperlipidemia, unspecified; F14.11 Cocaine abuse, in remission; G89.29 Other chronic pain; M54.9 Dorsalgia, unspecified; R91.1 Solitary pulmonary nodule; G62.9 Polyneuropathy, unspecified
CPT/HCPCS: 36415; 71045; 80053; 80307; 81003; 83880; 84484; 85007; 85025; 85379; 87081; 87635; 93005; 96374; 99285; J8499

== ENCOUNTER 2019-12-21 05:24 | Emergency (ER) | payer MEDICARE, MEDICAID ==
[~2019-12-21] VITALS: Ht 188 cm; Wt 77.1 kg
--- NOTE | 2019-12-21 05:24 | NUR ---
ED Nurse Note: Pt [address], pt c/o cough and rib pain. PT reports he's had this cough for 6 yrs. Former smoker. VSS, PT is A&OX4, spo2 on room air 97%
[2019-12-21 05:27] VITALS: BP 197/115
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
[2019-12-21] MEDS ORDERED: Albuterol/Ipratropium 3ml neb HHN ONE (05:45)
[2019-12-21 06:00] VITALS: BP 197/115
--- NOTE | 2019-12-21 06:00 | NUR ---
ER DISCHARGE NOTE: Patient is cleared to be discharged per ERMD, pt is aox4, on room air, with stable vital signs. pt was given dc and prescription instructions, pt was able to verbalize understanding, pt id band removed. pt is able to ambulate with stable gait with walker we provided . pt took all belongings.
== END 2019-12-21 06:00 | disposition home or self-care (01) ==
LOC: EDBD 05:24 → EMR 05:40
DX: J44.1 Chronic obstructive pulmonary disease with (acute) exacerbation (principal); I10 Essential (primary) hypertension; F14.10 Cocaine abuse, uncomplicated; Z86.73 Personal history of transient ischemic attack (TIA), and cerebral infarction without residual deficits; Z87.891 Personal history of nicotine dependence
CPT/HCPCS: 99283; J7620

== ENCOUNTER 2019-12-30 12:08 | Inpatient (IN) | payer MEDICARE, MEDICAID ==
[~2019-12-30] VITALS: Ht 188 cm
--- NOTE | 2019-12-30 12:21 | NUR ---
ED Nurse Note: Pt came into ED by wheelchair for chronic SOB and L sided chest pain. Pt has had chest pain for 12 years. Pt also has hx of COPD and asthma. O2 is 88% RA ans placed on 92% 2L NC. Pt is set in isolation room. EKG taken.
[2019-12-30 12:24] VITALS: BP 126/65
--- NOTE | 2019-12-30 12:52 | Emergency Room Report ---
History of Present Illness General Chief Complaint: Dyspnea/Respdistress Source: Patient Present Illness HPI Patient returns to the hospital with shortness of breath and productive cough with yellow phlegm. He claims he tested positive for COVID-19 however our results here are negative. He also is complaining about swelling and rash in his ankles. He does not smoke at this time, but recently smoked marijuana. He stopped this because of the shortness of breath.. He has used marijuana in the past. He has some loose stool. He has somewhat feverish but denies documentation. He does complain about diffuse diffuse body pain. He states his pain is 10/10. Apparently he presented to his private doctor's office who sent him here for evaluation of possible admission to the hospital. No sore throat, palpitations, nausea, vomiting, diarrhea, dysuria, abdominal pain, depression, anxiety, visual changes, dizziness, headache. The patient was admitted in November. Discharge diagnoses: 1. Acute COPD exacerbation. 2. Rule out COVID-19 infection. 3. Acute bronchitis. 4. Pulmonary nodule. 5. Chronic smoker of emphysema. 6. Bilateral lower extremity edema. 7. History of cocaine abuse. 8. Hypertension. 9. Chronic back pain. 10. Dyslipidemia. 11. Hypertension. Apparently the patient signed out AGAINST MEDICAL ADVICE He was seen in the emergency department on December 20. He was treated for COPD exacerbation, given a walker and discharged. Allergies: Coded Allergies: No Known Allergies (Unverified , 08/14/19) COVID-19 Screening Contact w/high risk pt: No Recent Travel to affected area: No Experienced COVID-19 symptoms?: Yes COVID-19 symptoms experienced: Shortness of Breath COVID-19 Testing performed DIE MAINTENANCE: No Patient History Past Medical History: old chart reviewed Social History: Reports: alcohol use, drug use - Cocaine; Denies: smoking - Prior Social History Narrative Homeless Reviewed Nursing Documentation: PMH: Agreed; PSxH: Agreed Nursing Documentation-PMH Hx Cardiac Problems: Yes Hx Hypertension: Yes Hx Asthma: Yes Hx COPD: Yes - pneumonia Hx Cancer: No Hx Gastrointestinal Problems: No Hx Neurological Problems: Yes - arthritis, spinal problems Hx Cerebrovascular Accident: Yes Hx Dizziness: Yes Hx Headaches: Yes Hx Weakness: Yes Hx Fatigue: Yes Review of Systems All Other Systems: negative except mentioned in HPI Physical Exam Vital Signs Date Time Temp Pulse Resp B/P (MAP) Pulse Ox O2 Delivery O2 Flow Rate FiO2 12/30/19 12:17 97.3 106 22 131/61 (84) 88 Room Air 12/30/19 12:24 2.0 92 Sp02 EP Interpretation: reviewed, abnormal - Interpreted as low by me General Appearance: no apparent distress, other - Disheveled Head: normocephalic, atraumatic Eyes: bilateral eye PERRL, bilateral eye Scleral Injection ENT: moist mucus membranes Neck: full range of motion, supple, no bony tend Respiratory: crackles, rhonchi, wheezing - Minimal, expiration Cardiovascular #1: regular rate, rhythm, edema - 2-3+ brawny, bilateral Cardiovascular #2: 2+ radial (R) Gastrointestinal: normal bowel sounds, non tender, soft Genitourinary: no CVA tenderness Musculoskeletal: back normal, normal range of motion, inflammation - Lower legs , no calf tenderness Neurologic: alert, motor strength/tone normal, oriented x3, grossly normal Psychiatric: mood/affect normal Skin: other - No significant erythema lower extremities with venous disease Medical Decision Making Diagnostic Impression: Primary Impression: Hypoxia Additional Impressions: COPD (chronic obstructive pulmonary disease) Qualified Codes: J44.9 - Chronic obstructive pulmonary disease, unspecified Hypokalemia Elevated lactic acid level Edema Qualified Codes: R60.0 - Localized edema ER Course Family history of COPD presents with productive cough dyspnea and hypoxia edema. Differential includes acute myocardial infarction, congestive heart failure, cor pulmonale, pneumonia, exacerbation of COPD amongst others. Patient evaluated with EKG, chest x-ray and labs. Lasix administered. Patient ordered to have breathing treatments using his own inhalers. Code precautions undertaken. Patient placed in isolation. Patient placed on trash hauler. EKG sinus tachycardia no acute changes atelectasis right base. Chest x-ray with atelectasis right base. COPD. Scarring right base. No infiltrates. Labs remarkable for normal white count with slight eosinophilia. CMP normal except for low potassium. Elevated lactic acid. Bolus ordered (only one liter as edema present). Antibiotics already ordered. 1435 Low potassium. Potassium ordered. Repeat lactic acid elevated but improved. This was obtained before bolus was administered. Patient improved after breathing treatments. Due to consideration of comorbidities and possible COVID-19 disease patient admitted to telemetry. Laboratory Tests Test 12/30/19 12:45 12/30/19 12:51 12/30/19 14:15 White Blood Count 4.8 K/UL (4.8-10.8) Red Blood Count 3.43 M/UL (4.70-6.10) L Hemoglobin 11.3 G/DL (14.2-18.0) L Hematocrit 35.3 % (42.0-52.0) L Mean Corpuscular Volume 103 FL (80-99) H Mean Corpuscular Hemoglobin 32.8 PG (27.0-31.0) H Mean Corpuscular Hemoglobin Concent 32.0 G/DL (32.0-36.0) Red Cell Distribution Width 15.7 % (11.6-14.8) H Platelet Count 140 K/UL (150-450) L Mean Platelet Volume 6.5 FL (6.5-10.1) Neutrophils (%) (Auto) 48.0 % (45.0-75.0) Lymphocytes (%) (Auto) 31.3 % (20.0-45.0) Monocytes (%) (Auto) 16.6 % (1.0-10.0) H Eosinophils (%) (Auto) 3.2 % (0.0-3.0) H Basophils (%) (Auto) 0.8 % (0.0-2.0) Prothrombin Time 10.9 SEC (9.30-11.50) Prothrombin Time INR 1.0 (0.9-1.1) Activated Partial Thromboplast Time 25 SEC (23-33) D-Dimer 0.46 mg/L FEU (0.00-0.49) Sodium Level 144 MMOL/L (136-145) Potassium Level 2.9 MMOL/L (3.5-5.1) L Chloride Level 103 MMOL/L (98-107) Carbon Dioxide Level 30 MMOL/L (21-32) Anion Gap 11 mmol/L (5-15) Blood Urea Nitrogen 8 mg/dL (7-18) Creatinine 0.9 MG/DL (0.55-1.30) Estimated Glomerular Filtration Rate > 60 mL/min (>60) Glucose Level 102 MG/DL (74-106) Lactic Acid Level 3.40 mmol/L (0.4-2.0) H 3.20 mmol/L (0.66-2.22) H Calcium Level 8.1 MG/DL (8.5-10.1) L Magnesium Level 1.7 MG/DL (1.8-2.4) L Ferritin 218 NG/ML (8-388) Total Bilirubin 0.4 MG/DL (0.2-1.0) Aspartate Amino Transferase (AST) 24 U/L (15-37) Alanine Aminotransferase (ALT) 36 U/L (12-78) Alkaline Phosphatase 56 U/L (46-116) Lactate Dehydrogenase 293 U/L (81-234) H Total Creatine Kinase 85 U/L (26-308) Troponin I 0.000 ng/mL (0.000-0.056) C-Reactive Protein, Quantitative 1.2 mg/dL (0.00-0.90) H Pro-B-Type Natriuretic Peptide 805 pg/mL (0-125) H Total Protein 6.5 G/DL (6.4-8.2) Albumin 3.4 G/DL (3.4-5.0) Globulin 3.1 g/dL Albumin/Globulin Ratio 1.1 (1.0-2.7) Lipase 242 U/L (73-393) Urine Color Yellow Urine Appearance Clear Urine pH 5 (4.5-8.0) Urine Specific [place] 1.015 (1.005-1.035) Urine Protein Negative (NEGATIVE) Urine Glucose (UA) Negative (NEGATIVE) Urine Ketones Negative (NEGATIVE) Urine Blood Negative (NEGATIVE) Urine Nitrite Negative (NEGATIVE) Urine Bilirubin Negative (NEGATIVE) Urine Urobilinogen 1 MG/DL (0.0-1.0) H Urine Leukocyte Esterase Negative (NEGATIVE) EKG Diagnostic Results Rate: tachycardiac Rhythm: NSR ST Segments: no acute changes Rhythm Strip Diag. Results EP Interpretation: yes Rhythm: no PVC's, no ectopy, other Chest X-Ray Diagnostic Results Chest X-Ray Diagnostic Results : Chest X-Ray Ordered: Yes # of Views/Limited/Complete: 1 View Indication: Shortness of Breath EP Interpretation: Yes Interpretation: no effusion, no pneumothorax, other - Atelectasis scarring right base Impression: Other Electronically Signed by: Electronically signed by Jj Garcia MD Last Vital Signs Date Time Temp Pulse Resp B/P (MAP) Pulse Ox O2 Delivery O2 Flow Rate FiO2 12/30/19 20:54 86 12/30/19 17:00 Nasal Cannula 2.0 12/30/19 16:55 97.9 16 136/79 (98) 96 12/30/19 12:24 92 Status: improved Disposition: ADMITTED INPATIENT Condition: Serious Scripts No Active Prescriptions or Reported Meds Referrals: Fred Kay DO (PCP) Jj Garcia MD Dec 30, 2019 12:52
[2019-12-30] MEDS ORDERED: Promethazine/Codeine 5ml UD ORAL PRN (13:00)
[2019-12-30] MEDS ORDERED: Nitroglycerin Subl 0.4mg tab SL PRN (13:00)
[2019-12-30] MEDS ORDERED: cefTRIAXone 1 GM in NS 55 ML IV SCH (13:00)
[2019-12-30] MEDS ORDERED: Azithromycin 500 MG in NS 275 ML IV ONE (13:00)
[2019-12-30] MEDS ORDERED: Albuterol 90mcg Inhaler 8gm INH PRN (13:00)
[2019-12-30] MEDS ORDERED: LORazepam Inj 2mg/ml 1ml IV PRN (13:00)
[2019-12-30] MEDS ORDERED: Solu-MEDROL 125mg Inj IVP ONE (13:00)
[2019-12-30] MEDS ORDERED: Albuterol/Ipratropium 3ml neb HHN PRN (13:00)
--- NOTE | 2019-12-30 13:05 | History and Physical ---
History of Present Illness General Date patient seen: Dec 30, 2019 Reason for Hospitalization: Dyspnea/Respdistress Present Illness HPI 79-year-old male with a history of chronic obstructive pulmonary disease, alcohol abuse, hypertension, presents to the ER with several days of cough, congestion, and shortness of breath as well as chest pain. He denied any fevers , chills, rhinorrhea. He does have cough, but denies , PND, or orthopnea. He received IV Solu-Medrol and breathing treatments in ER and one dose of Lasix with Ceftriaxone and zithromax. He is admitted to [facility] for further management. Allergies: Coded Allergies: No Known Allergies (Unverified , 08/14/19) COVID-19 Screening Contact w/high risk pt: No Recent Travel to affected area: No Experienced COVID-19 symptoms?: Yes COVID-19 symptoms experienced: Shortness of Breath Medication History No Active Prescriptions or Reported Meds Patient History Healthcare decision maker Resuscitation status Advanced Directive on File Past Medical/Surgical History Past Medical/Surgical History: (1) Pulmonary nodule (2) Emphysema (3) Tobacco dependence (4) History of cocaine abuse (5) History of CVA (cerebrovascular accident) (6) Chronic back pain (7) COPD (chronic obstructive pulmonary disease) Review of Systems All Other Systems: negative except mentioned in HPI Physical Exam General Appearance: thin Lines, tubes and drains: peripheral HEENT: atraumatic, anicteric Neck: non-tender, normal alignment Respiratory/Chest: chest wall non-tender, lungs clear Cardiovascular/Chest: normal peripheral pulses, normal rate Abdomen: non tender Genitourinary/Rectal: normal genital exam Last 24 Hour Vital Signs Date Time Temp Pulse Resp B/P (MAP) Pulse Ox O2 Delivery O2 Flow Rate FiO2 12/30/19 12:24 97.3 104 21 126/65 92 Nasal Cannula 2.0 12/30/19 12:24 104 21 Nasal Cannula 2.0 92 12/30/19 12:17 97.3 106 22 131/61 (84) 88 Room Air Height (Feet): 6 Height (Inches): 2.00 Weight (Pounds): 170 Medications Current Medications Medications (Trade) Dose Ordered Sig/[place] Route PRN Reason Start Time Stop Time Status Last Admin Dose Admin Acetaminophen/ Hydrocodone Bitart ([place] 10/325) 1 tab Q4H PRN ORAL For Pain 6/18/20 13:00 01/06/20 12:59 Albuterol Sulfate (Proventil MDI) 2 puff Q4H PRN INH Shortness of Breath 12/30/19 13:00 03/29/20 12:59 Albuterol/ Ipratropium (Albuterol/ Ipratropium) 3 ml Q4H PRN HHN dyspnea 12/30/19 13:00 01/04/20 12:59 Azithromycin 500 mg/Sodium Chloride 275 ml @ 275 mls/hr ONCE ONCE IV 12/30/19 13:00 12/30/19 13:59 Ceftriaxone Sodium 1 gm/ Sodium Chloride 55 ml @ 110 mls/hr Q24H IV 12/30/19 13:00 12/31/19 12:59 Dextrose (Dextrose 50%) 25 ml Q30M PRN IV Hypoglycemia 12/30/19 13:00 03/29/20 12:59 Dextrose (Dextrose 50%) 50 ml Q30M PRN IV Hypoglycemia 12/30/19 13:00 03/29/20 12:59 Furosemide (Lasix) 40 mg ONCE ONCE IV 12/30/19 13:00 12/30/19 13:01 Heparin Sodium (Porcine) (Heparin 5000 units/ml) 5,000 units EVERY 12 HOURS SUBQ 12/30/19 21:00 02/13/20 20:59 Lorazepam (Ativan 2mg/ml 1ml) 0.5 mg Q4H PRN IV For Anxiety 12/30/19 13:00 01/06/20 12:59 Methylprednisolone Sodium Succinate (Solu-MEDROL) 60 mg EVERY 6 HOURS IV 12/30/19 18:00 03/29/20 17:59 Methylprednisolone Sodium Succinate (Solu-MEDROL) 125 mg ONCE ONCE IVP 12/30/19 13:00 12/30/19 13:01 Nitroglycerin (Ntg) 0.4 mg Q5M X 3 DOSES PRN SL Prn Chest Pain 12/30/19 13:00 01/29/20 12:59 Ondansetron HCl (Zofran) 4 mg Q6H PRN IVP Nausea & Vomiting 12/30/19 13:00 01/29/20 12:59 Piperacillin Sod/ Tazobactam Sod 2.25 gm/Dextrose 55 ml @ 110 mls/hr EVERY 8 HOURS IV 12/30/19 14:00 01/04/20 13:59 UNV Promethazine HCl/ Codeine (Phenergan with Codeine) 5 ml Q6H PRN ORAL cough 12/30/19 13:00 01/29/20 12:59 Temazepam (Restoril) 15 mg HSPRN PRN ORAL Insomnia 12/30/19 13:00 01/06/20 12:59 Theophylline (Rigoberto-Dur) 100 mg EVERY 12 HOURS ORAL 12/30/19 21:00 03/29/20 20:59 Assessment/Plan Problem List: (1) Acute exacerbation of chronic obstructive airways disease ICD Codes: J44.1 - Acute exacerbation of chronic obstructive airways disease SNOMED: 951238443 (2) Acute bronchitis ICD Codes: J20.9 - Acute bronchitis, unspecified SNOMED: 26768203 (3) Pulmonary nodule ICD Codes: R91.1 - Solitary pulmonary nodule SNOMED: 448032159 (4) Emphysema ICD Codes: J43.9 - Emphysema SNOMED: 48795237 (5) Chronic back pain ICD Codes: G89.29 - Other chronic pain; M54.9 - Chronic back pain SNOMED: 798299136 (6) History of CVA (cerebrovascular accident) ICD Codes: Z86.73 - History of stroke SNOMED: 170319334 (7) History of cocaine abuse ICD Codes: F14.10 - Cocaine abuse, uncomplicated SNOMED: 151497243 (8) Tobacco dependence ICD Codes: F17.200 - Nicotine dependence, unspecified, uncomplicated SNOMED: 91240568 Assessment/Plan: respiratory treatment iv steroids check sputum titrate fio2 to sat of 92% diuretics prn cardiology evaluation dvt prophylaxis. Farhan Ortega MD Dec 30, 2019 13:05
[2019-12-30 13:25] LABS: BASOPHILS % (AUTO) 0.8 % (0.0-2.0); EOSINOPHILS % (AUTO) 3.2 % (0.0-3.0); HEMATOCRIT 35.3 % (42.0-52.0); HEMOGLOBIN 11.3 G/DL (14.2-18.0); LYMPHOCYTES % (AUTO) 31.3 % (20.0-45.0); MEAN CORPUSCULAR VOLUME 103 FL (80-99); MONOCYTES % (AUTO) 16.6 % (1.0-10.0); PLATELET COUNT 140 K/UL (150-450); RED BLOOD COUNT 3.43 M/UL (4.70-6.10); RED CELL DISTRIBUTION WIDTH 15.7 % (11.6-14.8); WHITE BLOOD COUNT 4.8 K/UL (4.8-10.8)
--- NOTE | 2019-12-30 13:28 | Diagnostic Imaging Report ---
Procedure: XRAY Chest 1v Reason for study: Reason For Exam: DYSPNEA Comparison films: 11/25/2019. FINDINGS: A single one view chest is obtained. Vascularity is normal. There is right basilar scarring. Mild atelectasis in the left lung base. Cardiac and mediastinal silhouette are within normal limits. CP angles are sharp. The bony thorax appear unremarkable. IMPRESSION: Basilar atelectasis and scarring. No acute disease.
[2019-12-30 13:33] LABS: APPEARANCE,URINE CLEAR; BILIRUBIN, URINE NEGATIVE (NEGATIVE); GLUCOSE, URINE (UA) NEGATIVE (NEGATIVE); KETONES,URINE NEGATIVE (NEGATIVE); LEUKOCYTE ESTERASE ,URINE NEGATIVE (NEGATIVE); NITRITE,URINE NEGATIVE (NEGATIVE); PH,URINE 5 (4.5-8.0); PROTEIN,URINE NEGATIVE (NEGATIVE); UROBILINOGEN,URINE 1 MG/DL (0.0-1.0)
--- NOTE | 2019-12-30 13:33 | NUR ---
ED Nurse Note: Pt refusing CRE, VRE, MRSA swab. Pt also refusing staff to look through certain items for belongings. Belongings list co signed.
[2019-12-30 13:35] LABS: COLOR,URINE YELLOW
[2019-12-30 13:50] LABS: ANION GAP 11 mmol/L (5-15); BLOOD UREA NITROGEN 8 mg/dL (7-18); CALCIUM 8.1 MG/DL (8.5-10.1); CARBON DIOXIDE 30 MMOL/L (21-32); CHLORIDE 103 MMOL/L (98-107); CREATININE 0.9 MG/DL (0.55-1.30); POTASSIUM 2.9 MMOL/L (3.5-5.1); SODIUM 144 MMOL/L (136-145)
--- NOTE | 2019-12-30 14:03 | NUR ---
ED Nurse Note: Spoke to Aman from pharmacy, she will verify Zosyn when pt is inpatient.
[2019-12-30 14:08] LABS: ALANINE AMINOTRANSFERASE 36 U/L (12-78); ALBUMIN 3.4 G/DL (3.4-5.0); ALBUMIN/GLOBULIN RATIO 1.1 (1.0-2.7); ALKALINE PHOSPHATASE 56 U/L (46-116); ASPARTATE AMINO TRANSFERASE 24 U/L (15-37); BILIRUBIN,TOTAL 0.4 MG/DL (0.2-1.0); CREATINE KINASE 85 U/L (26-308); FERRITIN 218 NG/ML (8-388); LACTATE DEHYDROGENASE 293 U/L (81-234)
--- NOTE | 2019-12-30 14:08 | NUR ---
ED Nurse Note: culture sputum sent.
--- NOTE | 2019-12-30 14:20 | NUR ---
ED Nurse Note: Lactic reflux sent.
[2019-12-30 15:55] VITALS: BP 132/96
--- NOTE | 2019-12-30 16:20 | NUR ---
ED Nurse Note: Report given to Torsten OLMOS.
--- NOTE | 2019-12-30 16:30 | NUR ---
ED Nurse Note: Pt transferred to tele floor w/ all belongings. Pt is accepted by RN Torsten.
[2019-12-30 16:55] VITALS: BP 136/79
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
--- NOTE | 2019-12-30 17:15 | NUR ---
NURSE NOTES: Photos of bilateral lower extremities and sacrum taken, unable to load from camera.
--- NOTE | 2019-12-30 17:35 | NUR ---
NURSE NOTES: Left message with Bob at message service for Dr. Fred Kay requesting admission orders.
--- NOTE | 2019-12-30 17:40 | NUR ---
NURSE NOTES: Patient refused MRSA, VRE, and CRE tests.
[2019-12-30] MEDS: Solu-MEDROL 125mg Inj IV SCH ×2 (18:00→23:54)
--- NOTE | 2019-12-30 19:12 | NUR ---
HAND-OFF: Report given to Vanessa Fonseca RN. Patient sitting up in bed, watching television, on 2 liters nasal cannula, bed in lowest position, call light within reach.
[2019-12-30 20:00] VITALS: BP 164/92
--- NOTE | 2019-12-30 20:02 | NUR ---
NURSE NOTES: Received report from NICKOLAS Sarmiento. Patient in bed asleep, no acute distress. Bed locked and at lowest position. Will continue to monitor.
--- NOTE | 2019-12-30 20:47 | NUR ---
NURSE NOTES: Called and left message with Dr. Kay regarding Potassium, magnesium and lactid acid levels. Awaiting call back.
[2019-12-30] MEDS: Theophylline ER 100mg ORAL SCH (21:03)
[2019-12-30] MEDS: Heparin 5000 units/ml inj SUBQ SCH (21:03)
[2019-12-30] MEDS: Zoysn 3.37gm in NS 100ML IVPB SCH (21:04)
[2019-12-30] MEDS ORDERED: Piperacillin/Tazobactam 2.25 GM in D5W 55 ML IV SCH (22:00)
[2019-12-31] VITALS (7 sets, daily range): BP systolic 142–166; BP diastolic 70–86
--- NOTE | 2019-12-31 03:20 | NUR ---
NURSE NOTES: Called and left a message with Dr. Kay regarding pts refusal to tolerate remaining potassium via IV. Awaiting call back.
[2019-12-31] MEDS: Zoysn 3.37gm in NS 100ML IVPB SCH ×2 (06:00→14:12)
[2019-12-31] MEDS: Solu-MEDROL 125mg Inj IV SCH ×3 (06:00→17:36)
--- NOTE | 2019-12-31 07:30 | NUR ---
NURSE NOTES: Received pt from NICKOLAS Mendez, pt is awake and alert, pt has NC 2LMP, Pt has intact iv access LAC 24G is running well. all needs attended, bed is locked and is in the lowest position, call light within easy reach. will continue to monitor.
[2019-12-31] MEDS: Heparin 5000 units/ml inj SUBQ SCH ×2 (09:00→21:00)
--- NOTE | 2019-12-31 09:00 | NUR ---
NURSE NOTES: Dr Kay is aware pt is negative for covid and ordered to ask Dr Ortega and Pastor, they are aware, waiting to call back.
[2019-12-31] MEDS: Docusate 100mg cap ORAL SCH ×3 (09:14→17:35)
[2019-12-31] MEDS: Theophylline ER 100mg ORAL SCH ×2 (09:14→21:01)
[2019-12-31] MEDS: HYDROcodone/Acetamin 10/325 tab ORAL PRN ×2 (09:15→21:02)
--- NOTE | 2019-12-31 09:37 | General Progress Note ---
Assessment/Plan Problem List: (1) COPD (chronic obstructive pulmonary disease) ICD Codes: J44.9 - Chronic obstructive pulmonary disease, unspecified SNOMED: 46002889 Qualifiers: Qualified Codes: J44.9 - Chronic obstructive pulmonary disease, unspecified (2) Elevated lactic acid level ICD Codes: R79.89 - Other specified abnormal findings of blood chemistry SNOMED: 7258938 (3) Hypokalemia ICD Codes: E87.6 - Hypokalemia SNOMED: 51101004, 507374956 (4) Hypoxia ICD Codes: R09.02 - Hypoxemia SNOMED: 299221274 (5) Acute exacerbation of chronic obstructive airways disease ICD Codes: J44.1 - Acute exacerbation of chronic obstructive airways disease SNOMED: 502019640 (6) Chronic back pain ICD Codes: G89.29 - Other chronic pain; M54.9 - Chronic back pain SNOMED: 410023094 (7) History of CVA (cerebrovascular accident) ICD Codes: Z86.73 - History of stroke SNOMED: 146865663 (8) ACS (acute coronary syndrome) ICD Codes: I20.0 - Unstable angina SNOMED: 573851414 Status: unchanged Assessment/Plan: o2 pulm tx abx pain control pt diet cbc bmp am Subjective Respiratory: Reports: shortness of breath Allergies: Coded Allergies: No Known Allergies (Unverified , 08/14/19) All Systems: reviewed and negative except above Subjective o2nc calm Objective Last 24 Hour Vital Signs Date Time Temp Pulse Resp B/P (MAP) Pulse Ox O2 Delivery O2 Flow Rate FiO2 12/31/19 08:00 97.7 92 18 142/75 (97) 99 12/31/19 07:54 94 12/31/19 04:00 98.4 86 19 157/72 (100) 95 12/31/19 00:00 97.5 100 19 158/86 (110) 100 12/30/19 21:00 Room Air 12/30/19 20:54 86 12/30/19 20:00 97.5 95 19 164/92 (116) 100 12/30/19 17:00 Nasal Cannula 2.0 12/30/19 16:55 97.9 86 16 136/79 (98) 96 12/30/19 16:30 98.7 78 19 125/76 99 6/18/20 15:55 97.3 100 20 132/96 93 Nasal Cannula 2.0 12/30/19 13:10 136/97 12/30/19 12:24 97.3 104 21 126/65 92 Nasal Cannula 2.0 12/30/19 12:24 104 21 Nasal Cannula 2.0 92 12/30/19 12:17 97.3 106 22 131/61 (84) 88 Room Air Intake and Output 12/30/19 12/31/19 19:00 07:00 Intake Total 120 ml Balance 120 ml Intake Oral 120 ml # Voids 1 5 # Bowel Movements 1 Laboratory Tests 12/30/19 12:45: White Blood Count 4.8, Red Blood Count 3.43L, Hemoglobin 11.3L, Hematocrit 35.3L , Mean Corpuscular Volume 103H, Mean Corpuscular Hemoglobin 32.8H, Mean Corpuscular Hemoglobin Concent 32.0, Red Cell Distribution Width 15.7H, Platelet Count 140L, Mean Platelet Volume 6.5, Neutrophils (%) (Auto) 48.0, Lymphocytes (%) (Auto) 31.3, Monocytes (%) (Auto) 16.6H, Eosinophils (%) (Auto) 3.2H, Basophils (%) (Auto) 0.8, Prothrombin Time 10.9, Prothromb Time International Ratio 1.0, Activated Partial Thromboplast Time 25, D-Dimer 0.46, Sodium Level 144, Potassium Level 2.9L, Chloride Level 103, Carbon Dioxide Level 30, Anion Gap 11, Blood Urea Nitrogen 8, Creatinine 0.9, Estimat Glomerular Filtration Rate > 60, Glucose Level 102, Lactic Acid Level 3.40H, Calcium Level 8.1L, Magnesium Level 1.7L, Ferritin 218, Total Bilirubin 0.4, Aspartate Amino Transf (AST/SGOT) 24, Alanine Aminotransferase (ALT/SGPT) 36, Alkaline Phosphatase 56, Lactate Dehydrogenase 293H, Total Creatine Kinase 85, Troponin I 0.000, C-Reactive Protein, Quantitative 1.2H, Pro-B-Type Natriuretic Peptide 805H, Total Protein 6.5, Albumin 3.4, Globulin 3.1, Albumin/Globulin Ratio 1.1, Lipase 242 12/30/19 12:51: Urine Color Yellow, Urine Appearance Clear, Urine pH 5, Urine Specific [place] 1.015, Urine Protein Negative, Urine Glucose (UA) Negative, Urine Ketones Negative, Urine Blood Negative, Urine Nitrite Negative, Urine Bilirubin Negative , Urine Urobilinogen 1H, Urine Leukocyte Esterase Negative 12/30/19 14:15: Lactic Acid Level 3.20H Height (Feet): 6 Height (Inches): 2.00 Weight (Pounds): 170 General Appearance: lethargic EENT: normal ENT inspection Neck: normal alignment Cardiovascular: normal rate, regular rhythm Respiratory/Chest: no respiratory distress, no accessory muscle use Extremities: normal inspection Skin: normal pigmentation Fred Kay DO Dec 31, 2019 09:37
--- NOTE | 2019-12-31 09:55 | Consultation ---
Consult Note Consult Note I am asked to evaluate the patient at the request of Dr. Fred Kay for electrolyte and fluid management. Consult was requested last evening. Supplements ordered. Patient is being seen this morning in room 218. Patient is somewhat anxious and uncooperative. Emergency room note: Chief Complaint: Dyspnea/Respdistress Patient returns to the hospital with shortness of breath and productive cough with yellow phlegm. He claims he tested positive for COVID-19 however our results here are negative. He also is complaining about swelling and rash in his ankles. He does not smoke at this time, but recently smoked marijuana. He stopped this because of the shortness of breath.. He has used marijuana in the past. He has some loose stool. He has somewhat feverish but denies documentation. He does complain about diffuse diffuse body pain. He states his pain is 10/10. Apparently he presented to his private doctor's office who sent him here for evaluation of possible admission to the hospital. No sore throat, palpitations, nausea, vomiting, diarrhea, dysuria, abdominal pain, depression, anxiety, visual changes, dizziness, headache. The patient was admitted in November. Discharge diagnoses: Apparently the patient signed out AGAINST MEDICAL ADVICE He was seen in the emergency department on December 20. He was treated for COPD exacerbation, given a walker and discharged. No Known Allergies (Unverified , 08/14/19) COVID-19 Screening Contact w/high risk pt: No Recent Travel to affected area: No Experienced COVID-19 symptoms?: Yes COVID-19 symptoms experienced: Shortness of Breath COVID-19 Testing performed AUTO WRECKER: No Hx Cardiac Problems: Yes Hx Hypertension: Yes Hx Asthma: Yes Hx COPD: Yes - pneumonia Hx Gastrointestinal Problems: No Hx Neurological Problems: Yes - arthritis, spinal problems Hx Cerebrovascular Accident: Yes Hx Dizziness: Yes Hx Headaches: Yes Hx Weakness: Yes Hx Fatigue: Yes examined data reviewed All the data in the EMR and previous emergency room visits and admissions reviewed GENERAL: Slightly anxious in room, oriented x2, in no acute distress. VITAL SIGNS: Temperature is 97, pulse 104, respirations 21, blood pressure 126/65. HEENT: Normocephalic and atraumatic. NECK: Trachea midline. CARDIOVASCULAR: No peripheral edema noted. LUNGS: Slight short of breath on room air. ABDOMEN: No apparent wound. EXTREMITIES: Show no cyanosis or clubbing. Assessment/Plan This 79-year-old male is admitted with hypoxia, and leg swelling Renal impression: Hypokalemia, unclear etiology. No definite history of diarrhea given by the patient. No diuretic on the list of medications. Hypomagnesemia. Other conditions: Exacerbation of COPD Elevated lactate acid Patient is chronic smoker History of cocaine and marijuana abuse Hypertension Chronic back pain Continue per pulmonary management, pulmonary toilet, steroids, aim to taper as possible Potassium and magnesium supplement. Monitor renal parameters and electrolytes. Keep the blood pressure and blood sugar in check. Per orders. Patient has multiple hospital admissions and emergency room visits here at [facility], and I spent over 60 minutes on review of medical records including prior hospital records,consult notes, progress notes, procedures ,imaging labs, hemodynamics, and other clinical documentation. Micky Ivy MD Dec 31, 2019 09:55
[2019-12-31 10:33] LABS: EOSINOPHILS % (AUTO) 0.3 % (0.0-3.0); HEMATOCRIT 33.1 % (42.0-52.0); HEMOGLOBIN 10.4 G/DL (14.2-18.0); LYMPHOCYTES % (AUTO) 12.2 % (20.0-45.0); MEAN CORPUSCULAR VOLUME 104 FL (80-99); MONOCYTES % (AUTO) 4.4 % (1.0-10.0); NEUTROPHILS % (AUTO) 82.1 % (45.0-75.0); PLATELET COUNT 126 K/UL (150-450); RED BLOOD COUNT 3.19 M/UL (4.70-6.10); RED CELL DISTRIBUTION WIDTH 15.7 % (11.6-14.8); WHITE BLOOD COUNT 4.9 K/UL (4.8-10.8)
--- NOTE | 2019-12-31 10:42 | NUR ---
NURSE NOTES: Dr Baumann called back and he will F/U.
[2019-12-31 10:55] LABS: ALANINE AMINOTRANSFERASE 27 U/L (12-78); ALBUMIN 3.1 G/DL (3.4-5.0); ALKALINE PHOSPHATASE 43 U/L (46-116); ANION GAP 5 mmol/L (5-15); ASPARTATE AMINO TRANSFERASE 19 U/L (15-37); BILIRUBIN,TOTAL 0.4 MG/DL (0.2-1.0); BLOOD UREA NITROGEN 13 mg/dL (7-18); CALCIUM 7.7 MG/DL (8.5-10.1); CARBON DIOXIDE 33 MMOL/L (21-32); CHLORIDE 99 MMOL/L (98-107); CHOLESTEROL 139 MG/DL (< 200); GAMMA GLUTAMYL TRANSPEPTIDASE 35 U/L (5-85); HDL CHOLESTEROL 81 MG/DL (40-60); PHOSPHORUS 2.9 MG/DL (2.5-4.9); POTASSIUM 3.4 MMOL/L (3.5-5.1); SODIUM 137 MMOL/L (136-145); TRIGLYCERIDES 27 MG/DL (30-150)
[2019-12-31 11:15] LABS: % IRON SATURATION 26 % (15-50); IRON 65 ug/dL (50-175); TOTAL IRON BINDING CAPACITY 250 ug/dL (250-450)
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
--- NOTE | 2019-12-31 11:48 | NUR ---
RD ASSESSMENT & RECOMMENDATIONS SEE CARE ACTIVITY FOR COMPLETE ASSESSMENT DAILY ESTIMATED NEEDS: Needs based on Cardiac, pulmonary / 82kg 25-30 kcals/kg 2175-8975 total kcals 1-1.5 g protein/kg 82-123 g total protein Per MD, elev BNP NUTRITION DIAGNOSIS: Decreased sodium needs R/T cardiac hx as evidenced by elev BNP (3219), elev BP w/ h/o HTN. CURRENT DIET:REGULAR PO DIET RECOMMENDATIONS: Low Sodium/ texture as tolerated ADDITIONAL RECOMMENDATIONS: * Updated standing weight * Rec bed side BG w/ solumedrol * Check lytes daily, replete as needed * Wound photos noted-> rec eval. * Add Ensure qdaily + snacks w/ current fair intake
--- NOTE | 2019-12-31 14:23 | Pulmonology Progress Note ---
Subjective ROS Limited/Unobtainable: No Constitutional: Reports: no symptoms Allergies: Coded Allergies: No Known Allergies (Unverified , 08/14/19) All Systems: reviewed and negative except above Objective Last 24 Hour Vital Signs Date Time Temp Pulse Resp B/P (MAP) Pulse Ox O2 Delivery O2 Flow Rate FiO2 12/31/19 13:24 156/79 (104) 12/31/19 12:00 98.0 82 18 166/84 (111) 94 12/31/19 11:51 65 12/31/19 09:00 Room Air 12/31/19 08:00 97.7 92 18 142/75 (97) 99 12/31/19 07:54 94 12/31/19 04:00 98.4 86 19 157/72 (100) 95 12/31/19 00:00 97.5 100 19 158/86 (110) 100 12/30/19 21:00 Room Air 12/30/19 20:54 86 12/30/19 20:00 97.5 95 19 164/92 (116) 100 12/30/19 17:00 Nasal Cannula 2.0 12/30/19 16:55 97.9 86 16 136/79 (98) 96 12/30/19 16:30 98.7 78 19 125/76 99 12/30/19 15:55 97.3 100 20 132/96 93 Nasal Cannula 2.0 Intake and Output 12/30/19 12/31/19 19:00 07:00 Intake Total 120 ml Balance 120 ml Intake Oral 120 ml # Voids 1 5 # Bowel Movements 1 General Appearance: cachetic HEENT: normocephalic, atraumatic Respiratory: chest wall non-tender, rhonchi - left, rhonchi - right Cardiovascular: normal peripheral pulses, normal rate Abdomen: normal bowel sounds, soft, non tender Genitourinary: normal external genitalia Skin: no rash Neurologic: caster operator II-XII grossly normal Microbiology Date/Time Source Procedure Growth Status 12/30/19 14:04 Sputum Gram Stain - Final Resulted 12/30/19 14:04 Sputum Sputum Culture - Preliminary NORMAL UPPER RESPIRATORY JS AT 24 ... Resulted 12/30/19 12:42 Nasopharynx Coronavirus COVID-19 PCR ([facility]) - Final Complete Laboratory Tests 12/31/19 10:25: White Blood Count 4.9, Red Blood Count 3.19L, Hemoglobin 10.4L, Hematocrit 33.1L , Mean Corpuscular Volume 104H, Mean Corpuscular Hemoglobin 32.4H, Mean Corpuscular Hemoglobin Concent 31.3L, Red Cell Distribution Width 15.7H, Platelet Count 126L, Mean Platelet Volume 6.4L, Neutrophils (%) (Auto) 82.1H, Lymphocytes (%) (Auto) 12.2L, Monocytes (%) (Auto) 4.4, Eosinophils (%) (Auto) 0.3, Basophils (%) (Auto) 1.0, Sodium Level 137, Potassium Level 3.4L, Chloride Level 99, Carbon Dioxide Level 33H, Anion Gap 5, Blood Urea Nitrogen 13, Creatinine 1.0, Estimat Glomerular Filtration Rate > 60, Glucose Level 150H, Hemoglobin A1c 5.2, Lactic Acid Level 2.80H, Uric Acid 5.1, Calcium Level 7.7L, Phosphorus Level 2.9, Magnesium Level 1.9, Iron Level 65, Total Iron Binding Capacity 250, Percent Iron Saturation 26, Unsaturated Iron Binding 185, Total Bilirubin 0.4, Gamma Glutamyl Transpeptidase 35, Aspartate Amino Transf (AST/ SGOT) 19, Alanine Aminotransferase (ALT/SGPT) 27, Alkaline Phosphatase 43L, C- Reactive Protein, Quantitative 0.9, Pro-B-Type Natriuretic Peptide 3219H, Total Protein 6.1L, Albumin 3.1L, Globulin 3.0, Albumin/Globulin Ratio 1.0, Triglycerides Level 27L, Cholesterol Level 139, LDL Cholesterol 51, HDL Cholesterol 81H, Cholesterol/HDL Ratio 1.7L, Vitamin B12 Level 559, Folate 8.0L , Thyroid Stimulating Hormone (TSH) 0.922 Current Medications Medications (Trade) Dose Ordered Sig/Aguila Route PRN Reason Start Time Stop Time Status Last Admin Dose Admin Acetaminophen/ Hydrocodone Bitart ([place] 10/325) 1 tab Q4H PRN ORAL For Pain 12/30/19 13:00 01/06/20 12:59 12/31/19 09:15 Albuterol/ Ipratropium (Albuterol/ Ipratropium) 3 ml Q4H PRN HHN dyspnea 12/30/19 13:00 01/04/20 12:59 Dextrose (Dextrose 50%) 25 ml Q30M PRN IV Hypoglycemia 12/30/19 13:00 9/16/20 12:59 Dextrose (Dextrose 50%) 50 ml Q30M PRN IV Hypoglycemia 12/30/19 13:00 03/29/20 12:59 Docusate Sodium (Colace) 100 mg THREE TIMES A DAY ORAL 12/31/19 09:00 01/30/20 08:59 12/31/19 12:34 Heparin Sodium (Porcine) (Heparin 5000 units/ml) 5,000 units EVERY 12 HOURS SUBQ 12/31/19 21:00 02/13/20 20:59 Lorazepam (Ativan 2mg/ml 1ml) 0.5 mg Q4H PRN IV For Anxiety 12/30/19 13:00 01/06/20 12:59 Memantine (Namenda) 5 mg DAILY ORAL 01/01/20 09:00 01/31/20 08:59 UNV Methylprednisolone Sodium Succinate (Solu-MEDROL) 60 mg EVERY 6 HOURS IV 12/30/19 18:00 03/29/20 17:59 12/31/19 12:34 Nitroglycerin (Ntg) 0.4 mg Q5M X 3 DOSES PRN SL Prn Chest Pain 12/30/19 13:00 01/29/20 12:59 12/30/19 13:10 Ondansetron HCl (Zofran) 4 mg Q6H PRN IVP Nausea & Vomiting 12/30/19 13:00 01/29/20 12:59 Pantoprazole (Protonix) 40 mg EVERY 12 HOURS ORAL 12/30/19 21:00 01/29/20 20:59 12/31/19 09:14 Piperacillin Sod/ Tazobactam Sod 3.375 gm/Sodium Chloride 110 ml @ 27.5 mls/hr EVERY 8 HOURS IVPB 12/30/19 22:00 01/04/20 21:59 12/31/19 14:12 Potassium Chloride (K-Dur) 40 meq DAILY ORAL 12/31/19 10:00 03/30/20 09:59 12/31/19 10:16 Promethazine HCl/ Codeine (Phenergan with Codeine) 5 ml Q6H PRN ORAL cough 12/30/19 13:00 01/29/20 12:59 Temazepam (Restoril) 15 mg HSPRN PRN ORAL Insomnia 12/30/19 13:00 01/06/20 12:59 Theophylline (Rigoberto-Dur) 100 mg EVERY 12 HOURS ORAL 12/30/19 21:00 03/29/20 20:59 12/31/19 09:14 Assessment/Plan Problems: (1) Acute exacerbation of chronic obstructive airways disease (2) Acute bronchitis (3) Pulmonary nodule (4) Emphysema (5) Chronic back pain (6) History of CVA (cerebrovascular accident) (7) History of cocaine abuse (8) Tobacco dependence Assessment/Plan respiratory treatment iv steroids, same dose for now check sputum, still pending titrate fio2 to sat of 92% diuretics prn cardiology evaluation dvt prophylaxis. Farhan Ortega MD Dec 31, 2019 14:23
--- NOTE | 2019-12-31 14:30 | Consultation ---
History of Present Illness General Date patient seen: Dec 31, 2019 Chief Complaint: Dyspnea/Respdistress Present Illness HPI 79 y/o M with hx of COPD, homelessness (lives in his car), HTN, OA, DJD, HLD, chronic back pain, CVA, smoker presented to ED on 12/30/19 with SOB, productive cough of yellow phlegm, diffuse body pain, subjective fever, rash and swelling in ankles, diarrhea. Reports had recent COVID19 positive test. Recently smoked marijuana. Was hypoxic to 88% at RA upon admission, placed on 2l NC, now back to [facility]. Denied sore throat, palpitations, nausea, vomiting, dysuria, abd pain, headache. Allergies: Coded Allergies: No Known Allergies (Unverified , 08/14/19) Medication History No Active Prescriptions or Reported Meds Patient History Healthcare decision maker Resuscitation status Advanced Directive on File Patient History Narrative Pmhx: as above Shx: chronic smoker History of cocaine and marijuana abuse Fhx: non contributory Review of Systems All Other Systems: negative except mentioned in HPI Physical Exam Physical Exam Narrative refused examination Last 24 Hour Vital Signs Date Time Temp Pulse Resp B/P (MAP) Pulse Ox O2 Delivery O2 Flow Rate FiO2 12/31/19 13:24 156/79 (104) 12/31/19 12:00 98.0 82 18 166/84 (111) 94 12/31/19 11:51 65 12/31/19 09:00 Room Air 12/31/19 08:00 97.7 92 18 142/75 (97) 99 12/31/19 07:54 94 12/31/19 04:00 98.4 86 19 157/72 (100) 95 12/31/19 00:00 97.5 100 19 158/86 (110) 100 12/30/19 21:00 Room Air 12/30/19 20:54 86 12/30/19 20:00 97.5 95 19 164/92 (116) 100 12/30/19 17:00 Nasal Cannula 2.0 12/30/19 16:55 97.9 86 16 136/79 (98) 96 12/30/19 16:30 98.7 78 19 125/76 99 12/30/19 15:55 97.3 100 20 132/96 93 Nasal Cannula 2.0 Intake and Output 12/30/19 12/31/19 19:00 07:00 Intake Total 120 ml Balance 120 ml Intake Oral 120 ml # Voids 1 5 # Bowel Movements 1 Laboratory Tests Test 12/30/19 14:15 12/31/19 10:25 Lactic Acid Level 3.20 mmol/L (0.66-2.22) H 2.80 mmol/L (0.4-2.0) H White Blood Count 4.9 K/UL (4.8-10.8) Red Blood Count 3.19 M/UL (4.70-6.10) L Hemoglobin 10.4 G/DL (14.2-18.0) L Hematocrit 33.1 % (42.0-52.0) L Mean Corpuscular Volume 104 FL (80-99) H Mean Corpuscular Hemoglobin 32.4 PG (27.0-31.0) H Mean Corpuscular Hemoglobin Concent 31.3 G/DL (32.0-36.0) L Red Cell Distribution Width 15.7 % (11.6-14.8) H Platelet Count 126 K/UL (150-450) L Mean Platelet Volume 6.4 FL (6.5-10.1) L Neutrophils (%) (Auto) 82.1 % (45.0-75.0) H Lymphocytes (%) (Auto) 12.2 % (20.0-45.0) L Monocytes (%) (Auto) 4.4 % (1.0-10.0) Eosinophils (%) (Auto) 0.3 % (0.0-3.0) Basophils (%) (Auto) 1.0 % (0.0-2.0) Sodium Level 137 MMOL/L (136-145) Potassium Level 3.4 MMOL/L (3.5-5.1) L Chloride Level 99 MMOL/L (98-107) Carbon Dioxide Level 33 MMOL/L (21-32) H Anion Gap 5 mmol/L (5-15) Blood Urea Nitrogen 13 mg/dL (7-18) Creatinine 1.0 MG/DL (0.55-1.30) Estimat Glomerular Filtration Rate > 60 mL/min (>60) Glucose Level 150 MG/DL (74-106) H Hemoglobin A1c 5.2 % (4.3-6.0) Uric Acid 5.1 MG/DL (2.6-7.2) Calcium Level 7.7 MG/DL (8.5-10.1) L Phosphorus Level 2.9 MG/DL (2.5-4.9) Magnesium Level 1.9 MG/DL (1.8-2.4) Iron Level 65 ug/dL (50-175) Total Iron Binding Capacity 250 ug/dL (250-450) Percent Iron Saturation 26 % (15-50) Unsaturated Iron Binding 185 ug/dL (112-346) Total Bilirubin 0.4 MG/DL (0.2-1.0) Gamma Glutamyl Transpeptidase 35 U/L (5-85) Aspartate Amino Transf (AST/SGOT) 19 U/L (15-37) Alanine Aminotransferase (ALT/SGPT) 27 U/L (12-78) Alkaline Phosphatase 43 U/L (46-116) L C-Reactive Protein, Quantitative 0.9 mg/dL (0.00-0.90) Pro-B-Type Natriuretic Peptide 3219 pg/mL (0-125) H Total Protein 6.1 G/DL (6.4-8.2) L Albumin 3.1 G/DL (3.4-5.0) L Globulin 3.0 g/dL Albumin/Globulin Ratio 1.0 (1.0-2.7) Triglycerides Level 27 MG/DL (30-150) L Cholesterol Level 139 MG/DL (< 200) LDL Cholesterol 51 mg/dL (<100) HDL Cholesterol 81 MG/DL (40-60) H Cholesterol/HDL Ratio 1.7 (3.3-4.4) L Vitamin B12 Level 559 PG/ML (193-986) Folate 8.0 NG/ML (8.6-58.9) L Thyroid Stimulating Hormone (TSH) 0.922 uiU/mL (0.358-3.740) Height (Feet): 6 Height (Inches): 2.00 Weight (Pounds): 170 Medications Current Medications Medications (Trade) Dose Ordered Sig/Aguila Route PRN Reason Start Time Stop Time Status Last Admin Dose Admin Acetaminophen/ Hydrocodone Bitart ([place] 10/325) 1 tab Q4H PRN ORAL For Pain 12/30/19 13:00 01/06/20 12:59 12/31/19 09:15 Albuterol/ Ipratropium (Albuterol/ Ipratropium) 3 ml Q4H PRN HHN dyspnea 12/30/19 13:00 01/04/20 12:59 Dextrose (Dextrose 50%) 25 ml Q30M PRN IV Hypoglycemia 12/30/19 13:00 03/29/20 12:59 Dextrose (Dextrose 50%) 50 ml Q30M PRN IV Hypoglycemia 12/30/19 13:00 03/29/20 12:59 Docusate Sodium (Colace) 100 mg THREE TIMES A DAY ORAL 12/31/19 09:00 01/30/20 08:59 12/31/19 12:34 Heparin Sodium (Porcine) (Heparin 5000 units/ml) 5,000 units EVERY 12 HOURS SUBQ 12/31/19 21:00 02/13/20 20:59 Lorazepam (Ativan 2mg/ml 1ml) 0.5 mg Q4H PRN IV For Anxiety 12/30/19 13:00 01/06/20 12:59 Methylprednisolone Sodium Succinate (Solu-MEDROL) 60 mg EVERY 6 HOURS IV 12/30/19 18:00 03/29/20 17:59 12/31/19 12:34 Nitroglycerin (Ntg) 0.4 mg Q5M X 3 DOSES PRN SL Prn Chest Pain 12/30/19 13:00 01/29/20 12:59 12/30/19 13:10 Ondansetron HCl (Zofran) 4 mg Q6H PRN IVP Nausea & Vomiting 12/30/19 13:00 01/29/20 12:59 Pantoprazole (Protonix) 40 mg EVERY 12 HOURS ORAL 12/30/19 21:00 01/29/20 20:59 12/31/19 09:14 Piperacillin Sod/ Tazobactam Sod 3.375 gm/Sodium Chloride 110 ml @ 27.5 mls/hr EVERY 8 HOURS IVPB 12/30/19 22:00 01/04/20 21:59 12/31/19 06:00 Potassium Chloride (K-Dur) 40 meq DAILY ORAL 12/31/19 10:00 03/30/20 09:59 12/31/19 10:16 Promethazine HCl/ Codeine (Phenergan with Codeine) 5 ml Q6H PRN ORAL cough 12/30/19 13:00 01/29/20 12:59 Temazepam (Restoril) 15 mg HSPRN PRN ORAL Insomnia 12/30/19 13:00 01/06/20 12:59 Theophylline (Rigoberto-Dur) 100 mg EVERY 12 HOURS ORAL 12/30/19 21:00 03/29/20 20:59 12/31/19 09:14 Assessment/Plan Assessment/Plan: Abx: Azithromycin x1 12/29 Ceftriaxone x1 12/29 Zosyn 12/29- Assessment: Viral syndrome- r/o COVID19, acute HIV, bacteremia -12/29 SARS-COV2 pCR neg COPD exacerbation Mild hypoxia upon admission- now resolved- at [facility] -CXR: Basilar atelectasis and scarring. No acute disease. -sp cx normal resp campbell (prelim) Afebrile No leukocytosis Thrombocytopenia/Lymphopenia -u/a neg -Bcx p COPD homelessness (lives in his car) HTN OA DJD HLD chronic back pain CVA smoker cocaine and THC use Plan: -Switch empiric Zosyn #2 to Ceftriaxone and Azithromycin -f/u cx -Monitor CBC/CMP, temperatures -COVID19 isolation and testing; send 2nd test -HIV ab screen and VL, RPR, acute hep panel, UDS Thank you for this consultation. Will continue to follow along with you. Discussed with Isabel Gutierrez M.D. Dec 31, 2019 14:30
--- NOTE | 2019-12-31 14:36 | NUR ---
P.T Note: P.T evaluation completed and treatment initiated. Please refer to P.T evaluation for current functional status.
[2019-12-31] MEDS: cefTRIAXone 1 GM in D5W 55 ML IVPB SCH (14:45)
[2019-12-31] MEDS: Azithromycin 250mg tab ORAL SCH (14:45)
--- NOTE | 2019-12-31 15:09 | NUR ---
NURSE NOTES: pt refused swab for covid and is very angry, Dr Schultz is aware, waiting to call back. will continue to monitor.
--- NOTE | 2019-12-31 15:14 | NUR ---
CASE MANAGEMENT:REVIEW 79 YR OLD MALE WALKED IN TO ER WITH HIS FRIEND CC: SOB AND LEFT CHEST PAIN PMH: ASTHMA. COPD SI: HYPOXIA. COPD. EDEMA. HYPOKALEMIA 97.4 106 22 131/61 88% ON RA K-2.9 MAG-1.7 IS: PLACED ON 2L/NC 1L NS BOLUS IV ROCEPHIN X1 IV LASIX X1 IV SOLUMEDROL IV AZITHROMYCIN K-DUR PO X1 CHEST XRAY BLOOD CX : TO TELEMETRY DCP: CHRONICALLY HOMELESS
--- NOTE | 2019-12-31 16:11 | NUR ---
NURSE NOTES: Dr Schultz called back and ordered to remain in isolation, MD is coming to visit pt soon. Will continue to monitor.
--- NOTE | 2019-12-31 17:00 | NUR ---
NURSE NOTES: pt complains SOB, RT refuses to due breathing treatment due to covid isolation, Dr Ortega is aware, waiting to call back. will continue to monitor.
--- NOTE | 2019-12-31 18:05 | NUR ---
NURSE NOTES: Urine specimen sent to lab, waiting for result.
--- NOTE | 2019-12-31 19:29 | NUR ---
HAND-OFF: Report given to NICKOLAS Mendez.Pt is awake and stable, Endorsed plan of care. Dr Ivy visited pt and he is aware about HTN, he will F/U.
--- NOTE | 2019-12-31 19:50 | NUR ---
NURSE NOTES: Received pt from NICKOLAS Rodriguez. Pt awake, alert, and talkative. Bed in lowest position. Call light within reach. Will continue to monitor.
--- NOTE | 2019-12-31 21:17 | NUR ---
NURSE NOTES: sACRAL DISCOLORATION AND L HAND WOUND NOTED. PT REFUSED PICTURE OF SACRUM BUT AGREED TO HAND PICTURE. WILL INPUT ORDERS AND WILL CONTINUE TO MONITOR.
[2020-01-01] VITALS: BP 141/73
[2020-01-01] MEDS: Solu-MEDROL 125mg Inj IV SCH ×4 (01:28→20:22)
[2020-01-01 04:00] VITALS: BP 140/76
--- NOTE | 2020-01-01 06:00 | NUR ---
NURSE NOTES: Pt repeatedly left his room last night and went into other peoples room despite being told that he is on isolation for covid. Will continue to reorient and will continue to monitor.
--- NOTE | 2020-01-01 07:36 | Pulmonology Progress Note ---
Subjective ROS Limited/Unobtainable: No Constitutional: Reports: no symptoms Allergies: Coded Allergies: No Known Allergies (Unverified , 08/14/19) Subjective no f/c reports pain with cough and deep breathing cough dry, intermittent scant sputum production, no hemoptysis Objective Last 24 Hour Vital Signs Date Time Temp Pulse Resp B/P (MAP) Pulse Ox O2 Delivery O2 Flow Rate FiO2 01/01/20 04:00 97.6 89 24 140/76 (97) 96 01/01/20 00:00 97 01/01/20 00:00 97.9 93 24 141/73 (95) 95 12/31/19 21:00 Room Air 12/31/19 20:00 98.2 87 16 143/70 (94) 95 12/31/19 16:00 98.0 96 18 156/76 (102) 98 12/31/19 15:35 92 12/31/19 13:24 156/79 (104) 12/31/19 12:00 98.0 82 18 166/84 (111) 94 12/31/19 11:51 65 12/31/19 09:00 Room Air 12/31/19 08:00 97.7 92 18 142/75 (97) 99 12/31/19 07:54 94 Intake and Output 12/31/19 01/01/20 19:00 07:00 Intake Total 775 ml 118 ml Output Total 450 ml Balance 325 ml 118 ml Intake Oral 720 ml IV Total 55 ml Other 118 ml Output Urine Total 450 ml # Voids 5 # Bowel Movements 2 General Appearance: cachetic - male in NAD HEENT: normocephalic, atraumatic Respiratory: chest wall non-tender, other - isolated rhonchi Cardiovascular: normal peripheral pulses, normal rate Abdomen: normal bowel sounds, soft, non tender Extremities: no edema, pedal pulses normal Skin: no rash 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 Resulted 12/30/19 12:42 Nasopharynx Coronavirus COVID-19 PCR ([facility]) - Final Complete Laboratory Tests 12/31/19 10:25: White Blood Count 4.9, Red Blood Count 3.19L, Hemoglobin 10.4L, Hematocrit 33.1L , Mean Corpuscular Volume 104H, Mean Corpuscular Hemoglobin 32.4H, Mean Corpuscular Hemoglobin Concent 31.3L, Red Cell Distribution Width 15.7H, Platelet Count 126L, Mean Platelet Volume 6.4L, Neutrophils (%) (Auto) 82.1H, Lymphocytes (%) (Auto) 12.2L, Monocytes (%) (Auto) 4.4, Eosinophils (%) (Auto) 0.3, Basophils (%) (Auto) 1.0, Sodium Level 137, Potassium Level 3.4L, Chloride Level 99, Carbon Dioxide Level 33H, Anion Gap 5, Blood Urea Nitrogen 13, Creatinine 1.0, Estimat Glomerular Filtration Rate > 60, Glucose Level 150H, Hemoglobin A1c 5.2, Lactic Acid Level 2.80H, Uric Acid 5.1, Calcium Level 7.7L, Phosphorus Level 2.9, Magnesium Level 1.9, Iron Level 65, Total Iron Binding Capacity 250, Percent Iron Saturation 26, Unsaturated Iron Binding 185, Total Bilirubin 0.4, Gamma Glutamyl Transpeptidase 35, Aspartate Amino Transf (AST/ SGOT) 19, Alanine Aminotransferase (ALT/SGPT) 27, Alkaline Phosphatase 43L, C- Reactive Protein, Quantitative 0.9, Pro-B-Type Natriuretic Peptide 3219H, Total Protein 6.1L, Albumin 3.1L, Globulin 3.0, Albumin/Globulin Ratio 1.0, Triglycerides Level 27L, Cholesterol Level 139, LDL Cholesterol 51, HDL Cholesterol 81H, Cholesterol/HDL Ratio 1.7L, Vitamin B12 Level 559, Folate 8.0L , Thyroid Stimulating Hormone (TSH) 0.922 12/31/19 17:55: Urine Opiates Screen Negative, Urine Barbiturates Screen Negative, Phencyclidine (PCP) Screen Negative, Urine Amphetamines Screen Negative, Urine Benzodiazepines Screen Negative, Urine Cocaine Screen Negative, Urine Marijuana (THC) Screen Negative Current Medications Medications (Trade) Dose Ordered Sig/Aguila Route PRN Reason Start Time Stop Time Status Last Admin Dose Admin Acetaminophen/ Hydrocodone Bitart ([place] 10325) 1 tab Q4H PRN ORAL For Pain 12/30/19 13:00 01/06/20 12:59 12/31/19 21:02 Albuterol/ Ipratropium (Albuterol/ Ipratropium) 3 ml Q4H PRN HHN dyspnea 12/30/19 13:00 01/04/20 12:59 Azithromycin (Zithromax) 500 mg DAILY ORAL 12/31/19 14:30 01/07/20 14:29 12/31/19 14:45 Ceftriaxone Sodium 1 gm/ Dextrose 55 ml @ 110 mls/hr Q24H IVPB 12/31/19 15:00 01/07/20 14:59 12/31/19 14:45 Clonidine HCl (Catapres Tab) 0.1 mg Q4H PRN ORAL bp over 165 syst 12/31/19 19:30 03/30/20 19:29 Dextrose (Dextrose 50%) 25 ml Q30M PRN IV Hypoglycemia 12/30/19 13:00 03/29/20 12:59 Dextrose (Dextrose 50%) 50 ml Q30M PRN IV Hypoglycemia 12/30/19 13:00 03/29/20 12:59 Docusate Sodium (Colace) 100 mg THREE TIMES A DAY ORAL 12/31/19 09:00 01/30/20 08:59 12/31/19 17:35 Folic Acid (Folate) 2 mg DAILY ORAL 01/01/20 09:00 01/31/20 08:59 Furosemide (Lasix) 20 mg DAILY IV 01/01/20 09:00 01/31/20 08:59 Heparin Sodium (Porcine) (Heparin 5000 units/ml) 5,000 units EVERY 12 HOURS SUBQ 12/31/19 21:00 02/13/20 20:59 Lorazepam (Ativan 2mg/ml 1ml) 0.5 mg Q4H PRN IV For Anxiety 12/30/19 13:00 01/06/20 12:59 Memantine (Namenda) 5 mg DAILY ORAL 01/01/20 09:00 01/31/20 08:59 Methylprednisolone Sodium Succinate (Solu-MEDROL) 60 mg EVERY 6 HOURS IV 12/30/19 18:00 03/29/20 17:59 01/01/20 05:55 Nitroglycerin (Ntg) 0.4 mg Q5M X 3 DOSES PRN SL Prn Chest Pain 12/30/19 13:00 01/29/20 12:59 12/30/19 13:10 Ondansetron HCl (Zofran) 4 mg Q6H PRN IVP Nausea & Vomiting 12/30/19 13:00 01/29/20 12:59 Pantoprazole (Protonix) 40 mg EVERY 12 HOURS ORAL 12/30/19 21:00 01/29/20 20:59 12/31/19 09:14 Potassium Chloride (K-Dur) 40 meq DAILY ORAL 12/31/19 10:00 03/30/20 09:59 12/31/19 10:16 Promethazine HCl/ Codeine (Phenergan with Codeine) 5 ml Q6H PRN ORAL cough 12/30/19 13:00 01/29/20 12:59 Temazepam (Restoril) 15 mg HSPRN PRN ORAL Insomnia 12/30/19 13:00 01/06/20 12:59 Theophylline (Rigoberto-Dur) 100 mg EVERY 12 HOURS ORAL 12/30/19 21:00 03/29/20 20:59 12/31/19 21:01 Assessment/Plan Assessment/Plan ASSESSMENT Acute COPD exacerbation Acute bronchitis Viral syndrome/ Suspected COVID-19 - Emphysema Pleuritic chest pain Chronic back pain History of CVA Hypertension Tobacco dependency History of cocaine abuse Anemia Homelessness PLAN OF CARE O2 titrate to keep sat >92% , HHN IV steroids and start tapering SCX -GNB BCX 12/29 - NGTD COVID-19 12/29- not detected, fup with 2 nd result DVT prophylaxis emp abx -> ceftriaxone and Azithromycin as per ID recs CXR noted trial of theophylline antitussive prn encourage to continue abstinence from smoking pain management prn, will try oral analgesics at this time monitor volumes, cardiorenal parameters, continue maintenance dose of Lasix BP management with curnet regimen and optimize as needed pain management monitor H&H with goal to keep Hgb >7 anemia w/up c/w anemia of chronic disease urine tox NGT supportive care case discussed and evaluated by supervising physician Mariana Canada NP Jan 01, 2020 07:36
--- NOTE | 2020-01-01 07:39 | NUR ---
HAND-OFF: Report given to NICKOLAS Kirkpatrick. Pt stable.
--- NOTE | 2020-01-01 07:40 | NUR ---
NURSE NOTES: Received report from Vanessa/RN, Patient sitting in bed, resting comfortably. On room air, no acute distress/SOB noted. IV on Left FA 22G, saline locked. Bed in low position and locked, Call light within reach, Encouraged to use call light when needed. Patient PUI, but refused the door to be closed. Will continue plan of care.
[2020-01-01 08:00] VITALS: BP 167/93
[2020-01-01] MEDS: Heparin 5000 units/ml inj SUBQ SCH ×2 (09:00→20:14)
[2020-01-01] MEDS: Azithromycin 250mg tab ORAL SCH (09:20)
[2020-01-01] MEDS: Docusate 100mg cap ORAL SCH ×3 (09:20→18:00)
[2020-01-01] MEDS: Memantine 5 MG TAB ORAL SCH (09:20)
[2020-01-01] MEDS: Theophylline ER 100mg ORAL SCH ×2 (09:20→20:23)
--- NOTE | 2020-01-01 09:30 | Progress Note ---
DATE: 01/01/2020 SUBJECTIVE: This is a 79-year-old male patient with hypoxia. This patient is a 79-year-old male patient who has hypoxia, COPD, hypokalemia, lactic acidosis, status post CVA, bronchitis. He has altered mental status, decline in cognition below his baseline, worsened by stress of his medical illness. That is why his attending has requested daily psychiatric consultation. MENTAL STATUS EXAMINATION: The patient is a 79-year-old male. Appearance is disheveled. Attitude, irritable and agitated. Affect, guarded and restricted. Intellect, poor. Mood, depressed and anxious. Motor activity, psychomotor agitation. Attention span is poor. Orientation x2. Speech is low volume and slurred. Thought process, disorganized and illogical. Insight and judgment is poor. DIAGNOSIS: Major depressive disorder, severe, recurrent with psychotic features, rule out dementia with psychosis. PLAN: Treat him with Namenda 5 mg daily and Ativan 0.5 mg IV every 4 hours p.r.n. anxiety or agitation. A 20 minutes of insight-oriented psychotherapy to help this patient to have ability understanding and recognition of his psychiatric and medical problems so that he has better impulse control and less depression and anxiety. Chart reviewed. Discussed with staff. Seen and assessed in his room. Misha Bird M.D. DR: TRANG JOB#: [id number] CC:
--- NOTE | 2020-01-01 09:32 | General Progress Note ---
Assessment/Plan Problem List: (1) COPD (chronic obstructive pulmonary disease) ICD Codes: J44.9 - Chronic obstructive pulmonary disease, unspecified SNOMED: 57835279 Qualifiers: Qualified Codes: J44.9 - Chronic obstructive pulmonary disease, unspecified (2) Elevated lactic acid level ICD Codes: R79.89 - Other specified abnormal findings of blood chemistry SNOMED: 2325946 (3) Hypokalemia ICD Codes: E87.6 - Hypokalemia SNOMED: 68106506, 402630034 (4) Hypoxia ICD Codes: R09.02 - Hypoxemia SNOMED: 145237570 (5) Acute exacerbation of chronic obstructive airways disease ICD Codes: J44.1 - Acute exacerbation of chronic obstructive airways disease SNOMED: 656020656 (6) Chronic back pain ICD Codes: G89.29 - Other chronic pain; M54.9 - Chronic back pain SNOMED: 077044291 (7) History of CVA (cerebrovascular accident) ICD Codes: Z86.73 - History of stroke SNOMED: 991363075 (8) ACS (acute coronary syndrome) ICD Codes: I20.0 - Unstable angina SNOMED: 297353511 Status: unchanged Assessment/Plan: o2 pulm tx abx pain control pt diet cbc bmp am Subjective Constitutional: Reports: weakness Allergies: Coded Allergies: No Known Allergies (Unverified , 08/14/19) All Systems: reviewed and negative except above Subjective sleepy calm Objective Last 24 Hour Vital Signs Date Time Temp Pulse Resp B/P (MAP) Pulse Ox O2 Delivery O2 Flow Rate FiO2 01/01/20 09:20 167/93 01/01/20 08:00 97.9 117 20 167/93 (117) 98 01/01/20 04:00 86 01/01/20 04:00 97.6 89 24 140/76 (97) 96 01/01/20 00:00 97 01/01/20 00:00 97.9 93 24 141/73 (95) 95 12/31/19 21:00 Room Air 12/31/19 20:00 98.2 87 16 143/70 (94) 95 12/31/19 16:00 98.0 96 18 156/76 (102) 98 12/31/19 15:35 92 12/31/19 13:24 156/79 (104) 12/31/19 12:00 98.0 82 18 166/84 (111) 94 12/31/19 11:51 65 Intake and Output 12/31/19 01/01/20 19:00 07:00 Intake Total 775 ml 400 ml Output Total 450 ml Balance 325 ml 400 ml Intake Oral 720 ml IV Total 55 ml Other 400 ml Output Urine Total 450 ml # Voids 5 3 # Bowel Movements 2 Laboratory Tests 12/31/19 10:25: White Blood Count 4.9, Red Blood Count 3.19L, Hemoglobin 10.4L, Hematocrit 33.1L , Mean Corpuscular Volume 104H, Mean Corpuscular Hemoglobin 32.4H, Mean Corpuscular Hemoglobin Concent 31.3L, Red Cell Distribution Width 15.7H, Platelet Count 126L, Mean Platelet Volume 6.4L, Neutrophils (%) (Auto) 82.1H, Lymphocytes (%) (Auto) 12.2L, Monocytes (%) (Auto) 4.4, Eosinophils (%) (Auto) 0.3, Basophils (%) (Auto) 1.0, Sodium Level 137, Potassium Level 3.4L, Chloride Level 99, Carbon Dioxide Level 33H, Anion Gap 5, Blood Urea Nitrogen 13, Creatinine 1.0, Estimat Glomerular Filtration Rate > 60, Glucose Level 150H, Hemoglobin A1c 5.2, Lactic Acid Level 2.80H, Uric Acid 5.1, Calcium Level 7.7L, Phosphorus Level 2.9, Magnesium Level 1.9, Iron Level 65, Total Iron Binding Capacity 250, Percent Iron Saturation 26, Unsaturated Iron Binding 185, Total Bilirubin 0.4, Gamma Glutamyl Transpeptidase 35, Aspartate Amino Transf (AST/ SGOT) 19, Alanine Aminotransferase (ALT/SGPT) 27, Alkaline Phosphatase 43L, C- Reactive Protein, Quantitative 0.9, Pro-B-Type Natriuretic Peptide 3219H, Total Protein 6.1L, Albumin 3.1L, Globulin 3.0, Albumin/Globulin Ratio 1.0, Triglycerides Level 27L, Cholesterol Level 139, LDL Cholesterol 51, HDL Cholesterol 81H, Cholesterol/HDL Ratio 1.7L, Vitamin B12 Level 559, Folate 8.0L , Thyroid Stimulating Hormone (TSH) 0.922 12/31/19 17:55: Urine Opiates Screen Negative, Urine Barbiturates Screen Negative, Phencyclidine (PCP) Screen Negative, Urine Amphetamines Screen Negative, Urine Benzodiazepines Screen Negative, Urine Cocaine Screen Negative, Urine Marijuana (THC) Screen Negative Height (Feet): 6 Height (Inches): 2.00 Weight (Pounds): 170 General Appearance: lethargic EENT: normal ENT inspection Neck: normal alignment Cardiovascular: normal rate, regular rhythm Respiratory/Chest: no respiratory distress, no accessory muscle use Extremities: normal inspection Skin: normal pigmentation Fred Kay DO Jan 01, 2020 09:32
[2020-01-01] MEDS: HYDROcodone/Acetamin 10/325 tab ORAL PRN (10:08)
[2020-01-01 12:00] VITALS: BP 145/73
--- NOTE | 2020-01-01 12:44 | Nephrology Progress Note ---
Assessment/Plan Problem List: (1) Electrolyte imbalance (2) Hypokalemia (3) Acute exacerbation of chronic obstructive airways disease (4) History of cocaine abuse Assessment This 79-year-old male is admitted with hypoxia, and leg swelling Renal impression: Hypokalemia, unclear etiology. No definite history of diarrhea given by the patient. No diuretic on the list of medications. Hypomagnesemia. Other conditions: Exacerbation of COPD, acute bronchitis, suspected COVID-19 infection Elevated lactate acid Patient is chronic smoker History of cocaine and marijuana abuse Hypertension Chronic back pain History of CVA Anemia Homelessness . Plan Start clonidine for blood pressure with parameters. Check can panel tomorrow. Continue per pulmonary management, pulmonary toilet, steroids, aim to taper as possible Potassium and magnesium supplement. Monitor renal parameters and electrolytes. Keep the blood pressure and blood sugar in check. Per orders. Subjective ROS Limited/Unobtainable: No Constitutional: Reports: malaise, weakness Objective Objective Last 24 Hour Vital Signs Date Time Temp Pulse Resp B/P (MAP) Pulse Ox O2 Delivery O2 Flow Rate FiO2 01/01/20 09:20 167/93 01/01/20 09:00 Room Air 01/01/20 08:00 87 01/01/20 08:00 97.9 117 20 167/93 (117) 98 01/01/20 04:00 86 01/01/20 04:00 97.6 89 24 140/76 (97) 96 01/01/20 00:00 97 01/01/20 00:00 97.9 93 24 141/73 (95) 95 12/31/19 21:00 Room Air 12/31/19 20:00 98.2 87 16 143/70 (94) 95 12/31/19 16:00 98.0 96 18 156/76 (102) 98 12/31/19 15:35 92 12/31/19 13:24 156/79 (104) Intake and Output 12/31/19 01/01/20 19:00 07:00 Intake Total 775 ml 400 ml Output Total 450 ml Balance 325 ml 400 ml Intake Oral 720 ml IV Total 55 ml Other 400 ml Output Urine Total 450 ml # Voids 5 3 # Bowel Movements 2 Current Medications Medications (Trade) Dose Ordered Sig/Aguila Route PRN Reason Start Time Stop Time Status Last Admin Dose Admin Acetaminophen/ Hydrocodone Bitart ([place] 10/325) 1 tab Q4H PRN ORAL For Pain 12/30/19 13:00 01/06/20 12:59 01/01/20 10:08 Albuterol/ Ipratropium (Albuterol/ Ipratropium) 3 ml Q4H PRN HHN dyspnea 12/30/19 13:00 01/04/20 12:59 Azithromycin (Zithromax) 500 mg DAILY ORAL 12/31/19 14:30 01/07/20 14:29 01/01/20 09:20 Ceftriaxone Sodium 1 gm/ Dextrose 55 ml @ 110 mls/hr Q24H IVPB 12/31/19 15:00 01/07/20 14:59 12/31/19 14:45 Clonidine HCl (Catapres Tab) 0.1 mg Q4H PRN ORAL bp over 165 syst 12/31/19 19:30 03/30/20 19:29 01/01/20 09:20 Dextrose (Dextrose 50%) 25 ml Q30M PRN IV Hypoglycemia 12/30/19 13:00 03/29/20 12:59 Dextrose (Dextrose 50%) 50 ml Q30M PRN IV Hypoglycemia 12/30/19 13:00 03/29/20 12:59 Docusate Sodium (Colace) 100 mg THREE TIMES A DAY ORAL 12/31/19 09:00 01/30/20 08:59 01/01/20 09:20 Folic Acid (Folate) 2 mg DAILY ORAL 01/01/20 09:00 01/31/20 08:59 01/01/20 09:20 Furosemide (Lasix) 20 mg DAILY IV 01/01/20 09:00 01/31/20 08:59 01/01/20 09:21 Heparin Sodium (Porcine) (Heparin 5000 units/ml) 5,000 units EVERY 12 HOURS SUBQ 12/31/19 21:00 02/13/20 20:59 Lorazepam (Ativan 2mg/ml 1ml) 0.5 mg Q4H PRN IV For Anxiety 12/30/19 13:00 01/06/20 12:59 Memantine (Namenda) 5 mg DAILY ORAL 01/01/20 09:00 01/31/20 08:59 01/01/20 09:20 Methylprednisolone Sodium Succinate (Solu-MEDROL) 60 mg Q8HR IV 01/01/20 14:00 03/29/20 17:59 Nitroglycerin (Ntg) 0.4 mg Q5M X 3 DOSES PRN SL Prn Chest Pain 12/30/19 13:00 01/29/20 12:59 12/30/19 13:10 Ondansetron HCl (Zofran) 4 mg Q6H PRN IVP Nausea & Vomiting 12/30/19 13:00 01/29/20 12:59 Pantoprazole (Protonix) 40 mg EVERY 12 HOURS ORAL 12/30/19 21:00 01/29/20 20:59 01/01/20 09:19 Potassium Chloride (K-Dur) 40 meq DAILY ORAL 12/31/19 10:00 03/30/20 09:59 01/01/20 09:21 Promethazine HCl/ Codeine (Phenergan with Codeine) 5 ml Q6H PRN ORAL cough 12/30/19 13:00 01/29/20 12:59 Temazepam (Restoril) 15 mg HSPRN PRN ORAL Insomnia 12/30/19 13:00 01/06/20 12:59 Theophylline (Rigoberto-Dur) 100 mg EVERY 12 HOURS ORAL 12/30/19 21:00 03/29/20 20:59 01/01/20 09:20 Laboratory Tests 12/31/19 17:55: Urine Opiates Screen Negative, Urine Barbiturates Screen Negative, Phencyclidine (PCP) Screen Negative, Urine Amphetamines Screen Negative, Urine Benzodiazepines Screen Negative, Urine Cocaine Screen Negative, Urine Marijuana (THC) Screen Negative Height (Feet): 6 Height (Inches): 2.00 Weight (Pounds): 170 General Appearance: no apparent distress Cardiovascular: tachycardia Respiratory/Chest: decreased breath sounds Abdomen: distended Micky Ivy MD Jan 01, 2020 12:44
[2020-01-01] MEDS: cefTRIAXone 1 GM in D5W 55 ML IVPB SCH (15:03)
--- NOTE | 2020-01-01 15:05 | NUR ---
PT Note Patient is independent in all mobility and gait without any AD. Patient does not need any PT services any more at this time. Will DC physical therapy. Addendum: 01/01/20 at 1506 by PAOLA THORNTON PT Amended: Links added.
--- NOTE | 2020-01-01 15:06 | Infectious Diseases Prog Note ---
Assessment/Plan Assessment/Plan Assessment: Viral syndrome- r/o COVID19, acute HIV, bacteremia -sp cx GNR -12/29 SARS-COV2 pCR neg COPD exacerbation Mild hypoxia upon admission- now resolved- at [facility] -CXR: Basilar atelectasis and scarring. No acute disease. -sp cx normal resp campbell (prelim) Afebrile No leukocytosis Thrombocytopenia/Lymphopenia Lactic acidosis; improving -u/a neg -Bcx NTD COPD homelessness (lives in his car) HTN OA DJD HLD chronic back pain CVA smoker cocaine and THC use Plan: -Cont Ceftriaxone and Azithromycin #2 (abx d #3) -12/30 SP ZOsyn #2 -f/u cx -Monitor CBC/CMP, temperatures -COVID19 isolation and testing; send 2nd test -HIV ab screen and VL, RPR, acute hep panel, UDS Thank you for this consultation. Will continue to follow along with you. Discussed with RN. Subjective Allergies: Coded Allergies: No Known Allergies (Unverified , 08/14/19) Subjective afebrile at RA no leukocytosis Objective Vital Signs Last 24 Hour Vital Signs Date Time Temp Pulse Resp B/P (MAP) Pulse Ox O2 Delivery O2 Flow Rate FiO2 01/01/20 12:00 62 01/01/20 12:00 97.9 83 20 145/73 (97) 96 01/01/20 09:20 167/93 01/01/20 09:00 Room Air 01/01/20 08:00 87 01/01/20 08:00 97.9 117 20 167/93 (117) 98 01/01/20 04:00 86 01/01/20 04:00 97.6 89 24 140/76 (97) 96 01/01/20 00:00 97 01/01/20 00:00 97.9 93 24 141/73 (95) 95 12/31/19 21:00 Room Air 12/31/19 20:00 98.2 87 16 143/70 (94) 95 12/31/19 16:00 98.0 96 18 156/76 (102) 98 12/31/19 15:35 92 Height (Feet): 6 Height (Inches): 2.00 Weight (Pounds): 170 Objective not examined to limit COVID19 exposure Microbiology Date/Time Source Procedure Growth Status 12/30/19 12:42 Blood Blood Culture - Preliminary NO GROWTH AFTER 24 HOURS Resulted 12/30/19 12:27 Blood Blood Culture - Preliminary NO GROWTH AFTER 24 HOURS Resulted 12/30/19 14:04 Sputum Gram Stain - Final Resulted 12/30/19 14:04 Sputum Culture - Preliminary Gram Negative Bacillus 1 Usual Respiratory Campbell Resulted 12/30/19 12:42 Nasopharynx Coronavirus COVID-19 PCR ([facility]) - Final Complete Laboratory Tests Test 12/31/19 17:55 Urine Opiates Screen Negative (NEGATIVE) Urine Barbiturates Screen Negative (NEGATIVE) Phencyclidine (PCP) Screen Negative (NEGATIVE) Urine Amphetamines Screen Negative (NEGATIVE) Urine Benzodiazepines Screen Negative (NEGATIVE) Urine Cocaine Screen Negative (NEGATIVE) Urine Marijuana (THC) Screen Negative (NEGATIVE) Current Medications Medications (Trade) Dose Ordered Sig/Aguila Route PRN Reason Start Time Stop Time Status Last Admin Dose Admin Acetaminophen/ Hydrocodone Bitart ([place] 10/325) 1 tab Q4H PRN ORAL For Pain 12/30/19 13:00 01/06/20 12:59 01/01/20 10:08 Albuterol/ Ipratropium (Albuterol/ Ipratropium) 3 ml Q4H PRN HHN dyspnea 12/30/19 13:00 01/04/20 12:59 Azithromycin (Zithromax) 500 mg DAILY ORAL 12/31/19 14:30 01/07/20 14:29 01/01/20 09:20 Ceftriaxone Sodium 1 gm/ Dextrose 55 ml @ 110 mls/hr Q24H IVPB 12/31/19 15:00 01/07/20 14:59 12/31/19 14:45 Clonidine HCl (Catapres Tab) 0.1 mg EVERY 8 HOURS ORAL 01/01/20 14:00 03/31/20 13:59 Clonidine HCl (Catapres Tab) 0.1 mg Q4H PRN ORAL bp over 165 syst 12/31/19 19:30 03/30/20 19:29 01/01/20 09:20 Dextrose (Dextrose 50%) 25 ml Q30M PRN IV Hypoglycemia 12/30/19 13:00 03/29/20 12:59 Dextrose (Dextrose 50%) 50 ml Q30M PRN IV Hypoglycemia 12/30/19 13:00 03/29/20 12:59 Docusate Sodium (Colace) 100 mg THREE TIMES A DAY ORAL 12/31/19 09:00 01/30/20 08:59 01/01/20 09:20 Folic Acid (Folate) 2 mg DAILY ORAL 01/01/20 09:00 01/31/20 08:59 01/01/20 09:20 Furosemide (Lasix) 20 mg DAILY IV 01/01/20 09:00 01/31/20 08:59 01/01/20 09:21 Heparin Sodium (Porcine) (Heparin 5000 units/ml) 5,000 units EVERY 12 HOURS SUBQ 12/31/19 21:00 02/13/20 20:59 Lorazepam (Ativan 2mg/ml 1ml) 0.5 mg Q4H PRN IV For Anxiety 12/30/19 13:00 01/06/20 12:59 Memantine (Namenda) 5 mg DAILY ORAL 01/01/20 09:00 01/31/20 08:59 01/01/20 09:20 Methylprednisolone Sodium Succinate (Solu-MEDROL) 60 mg Q8HR IV 01/01/20 14:00 03/29/20 17:59 Nitroglycerin (Ntg) 0.4 mg Q5M X 3 DOSES PRN SL Prn Chest Pain 12/30/19 13:00 01/29/20 12:59 12/30/19 13:10 Ondansetron HCl (Zofran) 4 mg Q6H PRN IVP Nausea & Vomiting 12/30/19 13:00 01/29/20 12:59 Pantoprazole (Protonix) 40 mg EVERY 12 HOURS ORAL 12/30/19 21:00 01/29/20 20:59 01/01/20 09:19 Potassium Chloride (K-Dur) 40 meq DAILY ORAL 12/31/19 10:00 03/30/20 09:59 01/01/20 09:21 Promethazine HCl/ Codeine (Phenergan with Codeine) 5 ml Q6H PRN ORAL cough 12/30/19 13:00 01/29/20 12:59 Temazepam (Restoril) 15 mg HSPRN PRN ORAL Insomnia 12/30/19 13:00 01/06/20 12:59 Theophylline (Rigoberto-Dur) 100 mg EVERY 12 HOURS ORAL 12/30/19 21:00 03/29/20 20:59 01/01/20 09:20 Isabel Schultz M.D. Jan 01, 2020 15:06
[2020-01-01 16:00] VITALS: BP 116/52
--- NOTE | 2020-01-01 19:34 | NUR ---
NURSE NOTES: Received report from Kaya Crain RN. Pt is stable, A&Ox4, denies pain at this time. Will continue plan of care and close monitoring.
--- NOTE | 2020-01-01 19:40 | NUR ---
HAND-OFF: Report given to Jacquelyn/NICKOLAS, Patient is in stable condition. Endorsed plan of care.
[2020-01-01 20:00] VITALS: BP 135/66
--- NOTE | 2020-01-01 20:21 | Consultation ---
Consult Note Consult Note Cardiology for Dr. Covarrubias Full consult dictated #[id number] Samantha Stern MD Jan 01, 2020 20:21
[2020-01-01] MEDS: dilTIAZem HCl 60mg tab ORAL SCH (22:46)
[2020-01-02] VITALS (7 sets, daily range): BP systolic 118–152; BP diastolic 60–96
--- NOTE | 2020-01-02 | Consultation ---
DATE OF CONSULTATION: 01/01/2020 CARDIOLOGY CONSULTATION CONSULTING PHYSICIAN: Samantha Stern MD. REASON FOR CONSULT: Chest pain and shortness of breath. HISTORY OF PRESENT ILLNESS: Mr. Lopes is a 79-year-old man, currently homeless, with history of hypertension, hyperlipidemia, tobacco use (quit approximately 10 years ago), COPD, and alcohol abuse, who presents to the emergency room with complaints of cough productive of yellow sputum, feeling feverish (no documented temperature) and episodes of intermittent substernal as well as left-sided chest pain. He reports that he fell (tripped over a tree branch) about a week ago and since then has had intermittent localized left chest pain, which occurs at rest or sometimes with movement, however, he also has had episodes of substernal discomfort again, these occur randomly not only with activity. He denies palpitations, dizziness, or syncope. He was admitted with COPD exacerbation and chest pain. Cardiology evaluation was requested for further assessment of possible coronary disease. MEDICATIONS: Currently Solu-Medrol 60 mg IV q.8 h., clonidine 0.1 mg p.o. q.8 h., Namenda 5 mg daily, Lasix 20 mg IV daily, folic acid 2 mg daily, subcutaneous heparin 5000 units q.12 h., ceftriaxone 1 g q.12 h., ceftriaxone 1 g IV q.24 h., azithromycin 500 mg daily, potassium 40 mEq daily, Colace 100 mg 3 times daily, Rigoberto-Dur 100 mg every 12 hours, Protonix 40 mg every 12 hours, albuterol and ipratropium nebulizer q.4 h., Ativan q.4 h. p.r.n., nitroglycerin sublingual as needed. ALLERGIES: No known drug allergies. PAST MEDICAL HISTORY: As noted above. History of COPD, tobacco use approximately 40-pack year, history of alcohol abuse. SOCIAL HISTORY: The patient is currently homeless. He has a smoking history as noted above and history of alcohol use up to 4 to 5 shots of whiskey per day on some days. PHYSICAL EXAMINATION: VITAL SIGNS: Blood pressure earlier today were 167/93, currently 116/52, pulse 74 and regular, respirations 18, and afebrile, oxygen saturation 98% on room air. GENERAL: Alert, somewhat disheveled appearing male, in no acute distress. HEENT: Normocephalic and atraumatic. Pupils are equal, round, and reactive to light. Sclerae anicteric. Oral mucosa are moist. NECK: Supple. There is no jugular venous distention. No carotid bruits. LUNGS: Bilateral scattered rhonchi and expiratory wheezes. HEART: Regular rate and rhythm with distant S1, S2 and no murmur or S3. ABDOMEN: Soft, nontender. No palpable mass. EXTREMITIES: A 1 to 2+ pitting edema of the feet and ankles bilaterally. LABORATORY AND DIAGNOSTIC DATA: EKG from 12/30/2019 shows sinus tachycardia at a rate of 101 beats per minute, left axis -20 degrees, poor R-wave progression V1 to V3. No ST-segment or T-wave changes. Laboratory data, troponin 0, potassium 2.9, sodium 144, chloride 103, bicarbonate 30, BUN 8, and creatinine 0.9. Lactic acid 3.4. Repeat laboratory data are significant for troponin of 0. BNP of 3219. Potassium 3.4, BUN 13, and creatinine 1.0. Lactic acid 3.21 admission, repeat 2.8. Hemoglobin 10, hematocrit 33, white blood count 4900. Urinalysis negative. Toxicology screen negative. Chest x-ray shows normal pulmonary vasculature, mild left base atelectasis. Normal heart size. Right basilar scarring. Echo shows an EF of 60%. Normal wall motion. Normal chamber sizes. Mild left ventricular hypertrophy. Mild to moderate tricuspid regurgitation and right ventricular systolic pressure 58 mmHg. ASSESSMENT AND RECOMMENDATIONS: Mr. Lopes is a 79-year-old man with a history of COPD, hypertension, and hyperlipidemia, who presents with cough productive of yellow sputum and chest pain. He has no evidence for an acute coronary syndrome. Based on the EKG or troponins, he may have some degree of coronary artery disease given his coronary risk factors of previous tobacco use, hypertension, and hyperlipidemia. I would recommend calcium channel blockers for treatment of his hypertension, would avoid beta blockers given his COPD with bronchospasm. Would give aspirin 81 mg daily if no contraindication. We will check a lipid panel. We would consider further evaluation for myocardial ischemia if his episodes of substernal chest pain persist, once his pulmonary infection has resolved. Treatment of his bronchitis versus pneumonia will be as per the primary team and pulmonary consultants. Samantha Stern M.D. DR: BASSAM JOB#: [id number] CC:
[2020-01-02] MEDS: dilTIAZem HCl 60mg tab ORAL SCH ×4 (05:13→21:14)
[2020-01-02] MEDS: Solu-MEDROL 125mg Inj IV SCH ×2 (05:14→21:13)
[2020-01-02 07:19] LABS: BASOPHILS % (AUTO) 0.4 % (0.0-2.0); HEMATOCRIT 37.3 % (42.0-52.0); MEAN CORPUSCULAR VOLUME 102 FL (80-99); MONOCYTES % (AUTO) 6.9 % (1.0-10.0); NEUTROPHILS % (AUTO) 84.8 % (45.0-75.0); PLATELET COUNT 157 K/UL (150-450); RED BLOOD COUNT 3.64 M/UL (4.70-6.10); RED CELL DISTRIBUTION WIDTH 15.8 % (11.6-14.8); WHITE BLOOD COUNT 9.7 K/UL (4.8-10.8)
--- NOTE | 2020-01-02 07:25 | NUR ---
HAND-OFF: Report given to Michael Wilhelm RN. Pt in stable condition, plan of care endorsed.
--- NOTE | 2020-01-02 07:30 | NUR ---
NURSE NOTES: Received pt from NICKOLAS Vang, pt is awake and alert, pt has NC 2LMP, Pt has intact iv access LFA 22G SL. Pt is on continues heart monitoring. pt is eating breakfast by observation. all needs attended, bed is locked and is in the lowest position, call light within easy reach. will continue to monitor.
[2020-01-02 07:52] LABS: ALANINE AMINOTRANSFERASE 23 U/L (12-78); ALBUMIN 3.5 G/DL (3.4-5.0); ALKALINE PHOSPHATASE 41 U/L (46-116); ANION GAP 7 mmol/L (5-15); ASPARTATE AMINO TRANSFERASE 20 U/L (15-37); BILIRUBIN,TOTAL 0.2 MG/DL (0.2-1.0); BLOOD UREA NITROGEN 17 mg/dL (7-18); CALCIUM 9.1 MG/DL (8.5-10.1); CARBON DIOXIDE 34 MMOL/L (21-32); CHLORIDE 98 MMOL/L (98-107); CHOLESTEROL 152 MG/DL (< 200); CREATININE 0.8 MG/DL (0.55-1.30); HDL CHOLESTEROL 93 MG/DL (40-60); POTASSIUM 3.4 MMOL/L (3.5-5.1); SODIUM 139 MMOL/L (136-145); TRIGLYCERIDES 36 MG/DL (30-150)
[2020-01-02 08:28] LABS: PHOSPHORUS 3.9 MG/DL (2.5-4.9)
--- NOTE | 2020-01-02 08:39 | Pulmonology Progress Note ---
Subjective ROS Limited/Unobtainable: No Constitutional: Reports: no symptoms Allergies: Coded Allergies: No Known Allergies (Unverified , 08/14/19) Subjective no f/c reports some pain with cough and deep breathing cough dry, intermittent scant sputum production, K-3.4 COVID 19 12/30 NGT Objective Last 24 Hour Vital Signs Date Time Temp Pulse Resp B/P (MAP) Pulse Ox O2 Delivery O2 Flow Rate FiO2 01/02/20 05:28 118/60 01/02/20 05:27 58 118/60 01/02/20 04:00 97.5 79 19 118/60 (79) 98 01/02/20 04:00 58 01/02/20 00:00 65 01/02/20 00:00 96.8 68 19 123/82 (96) 95 01/01/20 22:46 87 156/86 01/01/20 22:46 156/86 01/01/20 21:00 Room Air 01/01/20 20:00 96.6 89 18 135/66 (89) 95 01/01/20 20:00 76 01/01/20 16:00 97.8 92 18 116/52 (73) 98 01/01/20 16:00 74 01/01/20 15:04 145/73 01/01/20 12:00 62 01/01/20 12:00 97.9 83 20 145/73 (97) 96 01/01/20 09:20 167/93 01/01/20 09:00 Room Air Intake and Output 01/01/20 01/02/20 19:00 07:00 Intake Total 930 ml 1000 ml Balance 930 ml 1000 ml Intake Oral 930 ml 1000 ml # Voids 5 # Bowel Movements 2 General Appearance: cachetic - male in NAD HEENT: normocephalic, atraumatic Respiratory: chest wall non-tender, decreased breath sounds, other - isolated rhonchi Cardiovascular: normal peripheral pulses, normal rate Abdomen: normal bowel sounds, soft, non tender Extremities: no edema, pedal pulses normal Skin: no rash Neurologic: diversity intern II-XII grossly normal, alert, oriented x 3, responsive Musculoskeletal: normal muscle bulk Microbiology Date/Time Source Procedure Growth Status 12/30/19 12:42 Blood Blood Culture - Preliminary NO GROWTH AFTER 48 HOURS Resulted 12/30/19 12:27 Blood Blood Culture - Preliminary NO GROWTH AFTER 48 HOURS Resulted 12/30/19 14:04 Sputum Gram Stain - Final Complete 12/30/19 14:04 Sputum Culture - Final Klebsiella Pneumoniae Usual Respiratory Ajclyn Complete 12/30/19 12:42 Nasopharynx Coronavirus COVID-19 PCR ([facility]) - Final Complete Laboratory Tests 01/02/20 06:51: White Blood Count 9.7, Red Blood Count 3.64L, Hemoglobin 12.0L, Hematocrit 37.3L , Mean Corpuscular Volume 102H, Mean Corpuscular Hemoglobin 33.1H, Mean Corpuscular Hemoglobin Concent 32.3, Red Cell Distribution Width 15.8H, Platelet Count 157, Mean Platelet Volume 7.3, Neutrophils (%) (Auto) 84.8H, Lymphocytes (%) (Auto) 8.0L, Monocytes (%) (Auto) 6.9, Eosinophils (%) (Auto) 0.0, Basophils (%) (Auto) 0.4, Sodium Level 139, Potassium Level 3.4L, Chloride Level 98, Carbon Dioxide Level 34H, Anion Gap 7, Blood Urea Nitrogen 17, Creatinine 0.8, Estimat Glomerular Filtration Rate > 60, Glucose Level 105, Lactic Acid Level 2.00, Uric Acid 4.6, Calcium Level 9.1, Phosphorus Level 3.9, Magnesium Level 2.1, Total Bilirubin 0.2, Aspartate Amino Transf (AST/SGOT) 20, Alanine Aminotransferase (ALT/SGPT) 23, Alkaline Phosphatase 41L, C-Reactive Protein, Quantitative < 0.4, Pro-B-Type Natriuretic Peptide 3214H, Total Protein 7.1, Albumin 3.5, Globulin 3.6, Albumin/Globulin Ratio 1.0, Triglycerides Level 36, Cholesterol Level 152, LDL Cholesterol 46, HDL Cholesterol 93H, Cholesterol/HDL Ratio 1.6L Current Medications Medications (Trade) Dose Ordered Sig/[place] Route PRN Reason Start Time Stop Time Status Last Admin Dose Admin Acetaminophen/ Hydrocodone Bitart ([place] 10/325) 1 tab Q4H PRN ORAL For Pain 12/30/19 13:00 01/06/20 12:59 01/01/20 10:08 Albuterol/ Ipratropium (Combivent Respimat) 1 puff Q4H PRN INH dyspnea 01/02/20 02:30 01/07/20 02:29 Aspirin (Ecotrin) 81 mg DAILY ORAL 01/02/20 09:00 02/16/20 08:59 Azithromycin (Zithromax) 500 mg DAILY ORAL 12/31/19 14:30 01/07/20 14:29 01/01/20 09:20 Ceftriaxone Sodium 1 gm/ Dextrose 55 ml @ 110 mls/hr Q24H IVPB 12/31/19 15:00 01/07/20 14:59 01/01/20 15:03 Clonidine HCl (Catapres Tab) 0.1 mg EVERY 8 HOURS ORAL 01/01/20 14:00 03/31/20 13:59 01/01/20 22:46 Clonidine HCl (Catapres Tab) 0.1 mg Q4H PRN ORAL bp over 165 syst 12/31/19 19:30 03/30/20 19:29 01/01/20 09:20 Dextrose (Dextrose 50%) 25 ml Q30M PRN IV Hypoglycemia 12/30/19 13:00 03/29/20 12:59 Dextrose (Dextrose 50%) 50 ml Q30M PRN IV Hypoglycemia 12/30/19 13:00 03/29/20 12:59 Diltiazem HCl (Cardizem) 60 mg EVERY 8 HOURS ORAL 01/01/20 22:00 01/31/20 21:59 01/01/20 22:46 Docusate Sodium (Colace) 100 mg THREE TIMES A DAY ORAL 12/31/19 09:00 01/30/20 08:59 01/01/20 09:20 Folic Acid (Folate) 2 mg DAILY ORAL 01/01/20 09:00 01/31/20 08:59 01/01/20 09:20 Furosemide (Lasix) 20 mg DAILY IV 01/01/20 09:00 01/31/20 08:59 01/01/20 09:21 Heparin Sodium (Porcine) (Heparin 5000 units/ml) 5,000 units EVERY 12 HOURS SUBQ 12/31/19 21:00 02/13/20 20:59 Lorazepam (Ativan 2mg/ml 1ml) 0.5 mg Q4H PRN IV For Anxiety 12/30/19 13:00 01/06/20 12:59 Memantine (Namenda) 5 mg DAILY ORAL 01/01/20 09:00 01/31/20 08:59 01/01/20 09:20 Methylprednisolone Sodium Succinate (Solu-MEDROL) 60 mg Q8HR IV 01/01/20 14:00 03/29/20 17:59 01/02/20 05:14 Nitroglycerin (Ntg) 0.4 mg Q5M X 3 DOSES PRN SL Prn Chest Pain 12/30/19 13:00 01/29/20 12:59 12/30/19 13:10 Ondansetron HCl (Zofran) 4 mg Q6H PRN IVP Nausea & Vomiting 12/30/19 13:00 01/29/20 12:59 Pantoprazole (Protonix) 40 mg EVERY 12 HOURS ORAL 12/30/19 21:00 01/29/20 20:59 01/01/20 20:23 Potassium Chloride (K-Dur) 40 meq DAILY ORAL 12/31/19 10:00 03/30/20 09:59 01/01/20 09:21 Promethazine HCl/ Codeine (Phenergan with Codeine) 5 ml Q6H PRN ORAL cough 12/30/19 13:00 01/29/20 12:59 Temazepam (Restoril) 15 mg HSPRN PRN ORAL Insomnia 12/30/19 13:00 01/06/20 12:59 01/01/20 20:23 Theophylline (Rigoberto-Dur) 100 mg EVERY 12 HOURS ORAL 12/30/19 21:00 03/29/20 20:59 01/01/20 20:23 Assessment/Plan Assessment/Plan ASSESSMENT Acute COPD exacerbation Acute bronchitis Viral syndrome/ Suspected COVID- - Emphysema Pleuritic chest pain Chronic back pain History of CVA Hypertension Tobacco dependency History of cocaine abuse Anemia Homelessness PLAN OF CARE O2 titrate to keep sat >92% , HHN IV steroids and taper SCX -Klebsiella BCX 12/29 - NGTD COVID-19 12/29- not detected, fup with 2 nd result DVT prophylaxis emp abx -> ceftriaxone and Azithromycin as per ID recs CXR noted CXR for this am pending trial of theophylline antitussive prn encourage to continue abstinence from smoking pain management prn, will try oral analgesics at this time monitor volumes, cardiorenal parameters, continue maintenance dose of Lasix BP management with current regimen and optimize as needed pain management monitor H&H with goal to keep Hgb >7 anemia w/up c/w anemia of chronic disease urine tox NGT replace K, check and Mg in am supportive care case discussed and evaluated by supervising physician Mariana Canada NP Jan 02, 2020 08:38
[2020-01-02] MEDS ORDERED: Aspirin EC 81mg tab ORAL SCH (09:00)
[2020-01-02] MEDS: Azithromycin 250mg tab ORAL SCH (09:17)
[2020-01-02] MEDS: Theophylline ER 100mg ORAL SCH ×2 (09:17→21:14)
[2020-01-02] MEDS: Memantine 5 MG TAB ORAL SCH (09:18)
[2020-01-02] MEDS: Docusate 100mg cap ORAL SCH ×4 (09:18→18:00)
[2020-01-02] MEDS: Heparin 5000 units/ml inj SUBQ SCH ×2 (09:21→21:19)
--- NOTE | 2020-01-02 09:37 | General Progress Note ---
Assessment/Plan Problem List: (1) COPD (chronic obstructive pulmonary disease) ICD Codes: J44.9 - Chronic obstructive pulmonary disease, unspecified SNOMED: 29916133 Qualifiers: Qualified Codes: J44.9 - Chronic obstructive pulmonary disease, unspecified (2) Elevated lactic acid level ICD Codes: R79.89 - Other specified abnormal findings of blood chemistry SNOMED: 5218491 (3) Hypokalemia ICD Codes: E87.6 - Hypokalemia SNOMED: 42356979, 743609857 (4) Hypoxia ICD Codes: R09.02 - Hypoxemia SNOMED: 665487777 (5) Acute exacerbation of chronic obstructive airways disease ICD Codes: J44.1 - Acute exacerbation of chronic obstructive airways disease SNOMED: 690828035 (6) Chronic back pain ICD Codes: G89.29 - Other chronic pain; M54.9 - Chronic back pain SNOMED: 348517204 (7) History of CVA (cerebrovascular accident) ICD Codes: Z86.73 - History of stroke SNOMED: 344790979 (8) ACS (acute coronary syndrome) ICD Codes: I20.0 - Unstable angina SNOMED: 330645994 Status: unchanged Assessment/Plan: o2 pulm tx abx pain control pt diet cbc bmp am Subjective Constitutional: Reports: weakness Allergies: Coded Allergies: No Known Allergies (Unverified , 08/14/19) All Systems: reviewed and negative except above Subjective sleepy calm Objective Last 24 Hour Vital Signs Date Time Temp Pulse Resp B/P (MAP) Pulse Ox O2 Delivery O2 Flow Rate FiO2 01/02/20 08:00 96.8 102 20 147/80 (102) 96 01/02/20 05:28 118/60 01/02/20 05:27 58 118/60 01/02/20 04:00 97.5 79 19 118/60 (79) 98 01/02/20 04:00 58 01/02/20 00:00 65 01/02/20 00:00 96.8 68 19 123/82 (96) 95 01/01/20 22:46 87 156/86 01/01/20 22:46 156/86 01/01/20 21:00 Room Air 01/01/20 20:00 96.6 89 18 135/66 (89) 95 01/01/20 20:00 76 01/01/20 16:00 97.8 92 18 116/52 (73) 98 01/01/20 16:00 74 01/01/20 15:04 145/73 01/01/20 12:00 62 01/01/20 12:00 97.9 83 20 145/73 (97) 96 Intake and Output 01/01/20 01/02/20 19:00 07:00 Intake Total 930 ml 1000 ml Balance 930 ml 1000 ml Intake Oral 930 ml 1000 ml # Voids 5 # Bowel Movements 2 Laboratory Tests 01/02/20 06:51: White Blood Count 9.7, Red Blood Count 3.64L, Hemoglobin 12.0L, Hematocrit 37.3L , Mean Corpuscular Volume 102H, Mean Corpuscular Hemoglobin 33.1H, Mean Corpuscular Hemoglobin Concent 32.3, Red Cell Distribution Width 15.8H, Platelet Count 157, Mean Platelet Volume 7.3, Neutrophils (%) (Auto) 84.8H, Lymphocytes (%) (Auto) 8.0L, Monocytes (%) (Auto) 6.9, Eosinophils (%) (Auto) 0.0, Basophils (%) (Auto) 0.4, Sodium Level 139, Potassium Level 3.4L, Chloride Level 98, Carbon Dioxide Level 34H, Anion Gap 7, Blood Urea Nitrogen 17, Creatinine 0.8, Estimat Glomerular Filtration Rate > 60, Glucose Level 105, Lactic Acid Level 2.00, Uric Acid 4.6, Calcium Level 9.1, Phosphorus Level 3.9, Magnesium Level 2.1, Total Bilirubin 0.2, Aspartate Amino Transf (AST/SGOT) 20, Alanine Aminotransferase (ALT/SGPT) 23, Alkaline Phosphatase 41L, C-Reactive Protein, Quantitative < 0.4, Pro-B-Type Natriuretic Peptide 3214H, Total Protein 7.1, Albumin 3.5, Globulin 3.6, Albumin/Globulin Ratio 1.0, Triglycerides Level 36, Cholesterol Level 152, LDL Cholesterol 46, HDL Cholesterol 93H, Cholesterol/HDL Ratio 1.6L Height (Feet): 6 Height (Inches): 2.00 Weight (Pounds): 170 General Appearance: lethargic EENT: normal ENT inspection Neck: normal alignment Cardiovascular: normal rate, regular rhythm Respiratory/Chest: no respiratory distress, no accessory muscle use Skin: normal pigmentation Fred Kay DO Jan 02, 2020 09:37
[2020-01-02] MEDS: HYDROcodone/Acetamin 10/325 tab ORAL PRN (09:47)
--- NOTE | 2020-01-02 11:09 | Nephrology Progress Note ---
Assessment/Plan Problem List: (1) Electrolyte imbalance (2) Hypokalemia (3) Acute exacerbation of chronic obstructive airways disease (4) History of cocaine abuse (5) HTN (hypertension) Assessment This 79-year-old male is admitted with hypoxia, and leg swelling Renal impression: Hypokalemia, unclear etiology. No definite history of diarrhea given by the patient. No diuretic on the list of medications. Hypomagnesemia. Other conditions: Exacerbation of COPD, acute bronchitis, suspected COVID-19 infection Elevated lactate acid Patient is chronic smoker History of cocaine and marijuana abuse Hypertension Chronic back pain History of CVA Anemia Homelessness . Plan Potassium supplement as needed Start clonidine for blood pressure with parameters. Check can panel tomorrow. Continue per pulmonary management, pulmonary toilet, steroids, aim to taper as possible Potassium and magnesium supplement as needed. Monitor renal parameters and electrolytes. Keep the blood pressure and blood sugar in check. Per orders. Subjective ROS Limited/Unobtainable: No Constitutional: Reports: malaise Objective Objective Last 24 Hour Vital Signs Date Time Temp Pulse Resp B/P (MAP) Pulse Ox O2 Delivery O2 Flow Rate FiO2 01/02/20 09:00 Room Air 01/02/20 08:00 96.8 102 20 147/80 (102) 96 01/02/20 07:50 59 01/02/20 05:28 118/60 01/02/20 05:27 58 118/60 01/02/20 04:00 97.5 79 19 118/60 (79) 98 01/02/20 04:00 58 01/02/20 00:00 65 01/02/20 00:00 96.8 68 19 123/82 (96) 95 01/01/20 22:46 87 156/86 01/01/20 22:46 156/86 01/01/20 21:00 Room Air 01/01/20 20:00 96.6 89 18 135/66 (89) 95 01/01/20 20:00 76 01/01/20 16:00 97.8 92 18 116/52 (73) 98 01/01/20 16:00 74 01/01/20 15:04 145/73 01/01/20 12:00 62 01/01/20 12:00 97.9 83 20 145/73 (97) 96 Intake and Output 01/01/20 01/02/20 19:00 07:00 Intake Total 930 ml 1000 ml Balance 930 ml 1000 ml Intake Oral 930 ml 1000 ml # Voids 5 # Bowel Movements 2 Laboratory Tests 01/02/20 06:51: White Blood Count 9.7, Red Blood Count 3.64L, Hemoglobin 12.0L, Hematocrit 37.3L , Mean Corpuscular Volume 102H, Mean Corpuscular Hemoglobin 33.1H, Mean Corpuscular Hemoglobin Concent 32.3, Red Cell Distribution Width 15.8H, Platelet Count 157, Mean Platelet Volume 7.3, Neutrophils (%) (Auto) 84.8H, Lymphocytes (%) (Auto) 8.0L, Monocytes (%) (Auto) 6.9, Eosinophils (%) (Auto) 0.0, Basophils (%) (Auto) 0.4, Sodium Level 139, Potassium Level 3.4L, Chloride Level 98, Carbon Dioxide Level 34H, Anion Gap 7, Blood Urea Nitrogen 17, Creatinine 0.8, Estimat Glomerular Filtration Rate > 60, Glucose Level 105, Lactic Acid Level 2.00, Uric Acid 4.6, Calcium Level 9.1, Phosphorus Level 3.9, Magnesium Level 2.1, Total Bilirubin 0.2, Aspartate Amino Transf (AST/SGOT) 20, Alanine Aminotransferase (ALT/SGPT) 23, Alkaline Phosphatase 41L, C-Reactive Protein, Quantitative < 0.4, Pro-B-Type Natriuretic Peptide 3214H, Total Protein 7.1, Albumin 3.5, Globulin 3.6, Albumin/Globulin Ratio 1.0, Triglycerides Level 36, Cholesterol Level 152, LDL Cholesterol 46, HDL Cholesterol 93H, Cholesterol/HDL Ratio 1.6L Height (Feet): 6 Height (Inches): 2.00 Weight (Pounds): 170 General Appearance: no apparent distress Cardiovascular: tachycardia Respiratory/Chest: decreased breath sounds Abdomen: soft Micky Ivy MD Jan 02, 2020 11:09
--- NOTE | 2020-01-02 11:33 | Diagnostic Imaging Report ---
EXAM: XR Chest, 1 View CLINICAL HISTORY: COUGH TECHNIQUE: Frontal view of the chest. COMPARISON: Chest x-rays dated 12/30/2019 FINDINGS: Lungs: Mild linear atelectasis versus scarring in the right lung base, not significantly changed. The lungs otherwise appear clear, without focal consolidation. Pleural space: Unremarkable. The costophrenic angles are sharp. No visible pneumothorax. Heart: Unremarkable. No cardiomegaly. Mediastinum: Unremarkable. Bones/joints: Unremarkable. Vasculature: Mild atherosclerotic calcifications are noted within the aortic arch. Tubes, lines and devices: Telemetry leads overlie the thorax. IMPRESSION: Mild linear atelectasis versus scarring in the right lung base, not significantly changed. The lungs otherwise appear clear.
[2020-01-02] MEDS: cefTRIAXone 1 GM in D5W 55 ML IVPB SCH (14:06)
--- NOTE | 2020-01-02 16:30 | Progress Note ---
DATE: 01/02/2020 SUBJECTIVE: This is a 79-year-old male patient with hypoxia. He is confused, disorganized. He has altered mental status, decline in cognition below his baseline. He has got some mood lability. MENTAL STATUS EXAMINATION: This is a 79-year-old male. Appearance is disheveled. Attitude irritable and agitated. Affect guarded and restricted. Intellect, poor. Mood, depressed and anxious. Motor activity, psychomotor agitation. Attention span is poor. Orientation x2. Speech is low volume and slurred. Thought process, disorganized and illogical. Insight and judgment is poor. DIAGNOSIS: Major depressive disorder, mild, recurrent with psychotic features, rule out dementia with psychosis. PLAN: Continue to treat this patient with psychotropic medications to improve his mood. A 20 minutes of cognitive behavioral therapy to help him identify his automatic negative thoughts, help him convert his negative thoughts to more positive thoughts to reduce depression, anxiety, and mood lability. Chart reviewed and discussed with staff. Seen and assessed at bedside. Misha Bird M.D. DR: Mitzi JOB#: [id number] CC:
[2020-01-02] MEDS ORDERED: Nitroglycerin Subl 0.4mg tab SL PRN (18:00)
[2020-01-02] MEDS ORDERED: LORazepam Inj 2mg/ml 1ml IV PRN (18:05)
[2020-01-02] MEDS ORDERED: Promethazine/Codeine 5ml UD ORAL PRN (18:06)
--- NOTE | 2020-01-02 18:10 | Cardiology Progress Note ---
Assessment/Plan Problem List: (1) COPD (chronic obstructive pulmonary disease) (2) Acute respiratory failure (3) History of CVA (cerebrovascular accident) (4) HTN (hypertension) Status: stable, progressing Status Narrative Dyspnea, likely due to COPD exacerbation Pulmonary hypertension Chest pain - ruling out for NM. L sided pain following mechanical fall is likely musculoskeletal. However, he has had episodes of SSCP. Tobacco use Alcohol abuse - Assessment/Plan Continue treatment for COPD exacerbation per pulmonary. Continue diltiazem, asa. No b blockers due to copd/ bronchospasm. Consider noninvasive w/u for ischemia when more stable. Monitor for alcohol withdrawal. Subjective ROS Limited/Unobtainable: No Subjective Cardiology for Dr. Covarrubias Pt sedated, in no distress Objective Last 24 Hour Vital Signs Date Time Temp Pulse Resp B/P (MAP) Pulse Ox O2 Delivery O2 Flow Rate FiO2 01/02/20 16:00 96.3 90 20 131/70 (90) 97 01/02/20 15:41 71 01/02/20 13:13 93 132/74 01/02/20 13:13 132/74 01/02/20 11:44 97.7 93 20 132/74 (93) 97 01/02/20 11:42 57 01/02/20 09:00 Room Air 01/02/20 08:00 96.8 102 20 147/80 (102) 96 01/02/20 07:50 59 01/02/20 05:28 118/60 01/02/20 05:27 58 118/60 01/02/20 04:00 97.5 79 19 118/60 (79) 98 01/02/20 04:00 58 01/02/20 00:00 65 01/02/20 00:00 96.8 68 19 123/82 (96) 95 01/01/20 22:46 87 156/86 01/01/20 22:46 156/86 01/01/20 21:00 Room Air 01/01/20 20:00 96.6 89 18 135/66 (89) 95 01/01/20 20:00 76 General Appearance: WD/WN, no apparent distress EENT: PERRL/EOMI Neck: no JVD Rhythm: NSR Cardiovascular: normal rate, no gallop/murmur Respiratory/Chest: other - bilat scattered rhonchi Abdomen: normal bowel sounds, non tender, soft Extremities: no swelling Intake and Output 01/01/20 01/02/20 19:00 07:00 Intake Total 930 ml 1000 ml Balance 930 ml 1000 ml Intake Oral 930 ml 1000 ml # Voids 5 # Bowel Movements 2 Laboratory Tests Test 01/02/20 06:51 White Blood Count 9.7 K/UL (4.8-10.8) Red Blood Count 3.64 M/UL (4.70-6.10) L Hemoglobin 12.0 G/DL (14.2-18.0) L Hematocrit 37.3 % (42.0-52.0) L Mean Corpuscular Volume 102 FL (80-99) H Mean Corpuscular Hemoglobin 33.1 PG (27.0-31.0) H Mean Corpuscular Hemoglobin Concent 32.3 G/DL (32.0-36.0) Red Cell Distribution Width 15.8 % (11.6-14.8) H Platelet Count 157 K/UL (150-450) Mean Platelet Volume 7.3 FL (6.5-10.1) Neutrophils (%) (Auto) 84.8 % (45.0-75.0) H Lymphocytes (%) (Auto) 8.0 % (20.0-45.0) L Monocytes (%) (Auto) 6.9 % (1.0-10.0) Eosinophils (%) (Auto) 0.0 % (0.0-3.0) Basophils (%) (Auto) 0.4 % (0.0-2.0) Sodium Level 139 MMOL/L (136-145) Potassium Level 3.4 MMOL/L (3.5-5.1) L Chloride Level 98 MMOL/L (98-107) Carbon Dioxide Level 34 MMOL/L (21-32) H Anion Gap 7 mmol/L (5-15) Blood Urea Nitrogen 17 mg/dL (7-18) Creatinine 0.8 MG/DL (0.55-1.30) Estimat Glomerular Filtration Rate > 60 mL/min (>60) Glucose Level 105 MG/DL (74-106) Lactic Acid Level 2.00 mmol/L (0.4-2.0) Uric Acid 4.6 MG/DL (2.6-7.2) Calcium Level 9.1 MG/DL (8.5-10.1) Phosphorus Level 3.9 MG/DL (2.5-4.9) Magnesium Level 2.1 MG/DL (1.8-2.4) Total Bilirubin 0.2 MG/DL (0.2-1.0) Aspartate Amino Transf (AST/SGOT) 20 U/L (15-37) Alanine Aminotransferase (ALT/SGPT) 23 U/L (12-78) Alkaline Phosphatase 41 U/L (46-116) L C-Reactive Protein, Quantitative < 0.4 mg/dL (0.00-0.90) Pro-B-Type Natriuretic Peptide 3214 pg/mL (0-125) H Total Protein 7.1 G/DL (6.4-8.2) Albumin 3.5 G/DL (3.4-5.0) Globulin 3.6 g/dL Albumin/Globulin Ratio 1.0 (1.0-2.7) Triglycerides Level 36 MG/DL (30-150) Cholesterol Level 152 MG/DL (< 200) LDL Cholesterol 46 mg/dL (<100) HDL Cholesterol 93 MG/DL (40-60) H Cholesterol/HDL Ratio 1.6 (3.3-4.4) Samantha Car MD Jan 02, 2020 18:10
--- NOTE | 2020-01-02 18:15 | NUR ---
NURSE NOTES: pt has transfer order, pt is stable, V/S stable, pt states all belongings are with him but refuses to show RN. IV access intact. pt still refusing to do swab for covid again. pt transferred to 414 bed 2, report given to OLIVER Cedillo, endorsed plan of care.
--- NOTE | 2020-01-02 18:25 | NUR ---
NURSE NOTES: RECEIVED PATIENT A/A/OX4, ABLE TO MAKE NEEDS KNOWN. REFUSED TO ASSESS HIS PERSONAL BELONGINGS. PATIENT PRESENTED IMPULSIVE AND TERRITORIAL. VS TAKEN AND RECORDED. SKIN ASSESSED AND WOUND PHOTO TAKEN AND UPLOADED. TREATMENT RENDERED. PATIENT'S HEALS ARE DRY AND SCALY. PROVIDED LOTION @ BEDSIDE. IV HEPLOCK PATENT AND INTACT. O2 ON 2L VIA NC. HOB ELEVATED. BED IS IN THE LOWEST POSITION. SIDERAILS ARE UPX3. CALL LIGHT WITHIN REACH. WILL CONT TO MONITOR.
--- NOTE | 2020-01-02 18:59 | NUR ---
HAND-OFF: Report given to bobby. Addendum: 01/02/20 at 1932 by TITA MCGOWAN LVN hand off lisa
--- NOTE | 2020-01-02 19:40 | NUR ---
NURSE NOTES: Patient in bed, A&Ox4. No C/O pain or SOB. IV intact and patent. Bed locked and in lowest position. Call light in reach. Will continue plan of care.
[2020-01-02] MEDS ORDERED: Solu-MEDROL 125mg Inj IV SCH (21:00)
[2020-01-03] VITALS: BP 120/72
[2020-01-03 04:00] VITALS: BP 150/72
--- NOTE | 2020-01-03 04:35 | NUR ---
NURSE NOTES: RN asked patient to draw blood for morning labs. Patient refused and became very agitated, aggressive while yelling at the nurse to leave; Tried to reorient and deescalate but unsuccessful.
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
[2020-01-03] MEDS: dilTIAZem HCl 60mg tab ORAL SCH ×3 (05:19→21:01)
--- NOTE | 2020-01-03 07:22 | NUR ---
HAND-OFF: Report given to NICKOLAS Echols.
[2020-01-03 08:00] VITALS: BP 126/80
--- NOTE | 2020-01-03 08:30 | Consultation ---
DATE OF CONSULTATION: 12/31/2019 CONSULTING PHYSICIAN: Misha Bird M.D. HISTORY OF PRESENT ILLNESS: This is a 79-year-old male patient. This patient is admitted to the hospital. The patient came in because he has chest pain and generalized pain as well as . The patient is endorsing thoughts of helplessness, hopelessness, low energy, poor appetite, and loss of interest in activity. denying any current suicidal or homicidal ideation. He is endorsing with anxiety and depression and does appear to be confused. He has some mood lability and a lot of anxiety worsened by stress of his medical illness. at bedside. He is confused and disorganized. He also has a history of cocaine abuse. MEDICAL PROBLEMS: COPD, hypothermia, edema, hypoxia, acute CVA, bacteremia, degenerative joint disease, peripheral neuropathy, . back pain. ALLERGIES: He has known drug allergies. PSYCHOTROPIC MEDICATIONS ON ADMISSION: None. SUBSTANCE ABUSE HISTORY: Patient does have history of alcohol use and cocaine use as well. FAMILY PSYCHIATRIC HISTORY: Denies. PAIN ASSESSMENT: 09/20 pain. DEVELOPMENTAL PROBLEMS: Denies. SOCIAL HISTORY: Patient is financially supported by [employer] and Medicare. PSYCHIATRIC HISTORY: Major depressive disorder, mild, recurrent with psychotic features, rule out dementia with psychosis. STRENGTHS: He is motivated to get better and has a place to live. WEAKNESSES: He is impulsive. Minimal support system. MENTAL STATUS EXAMINATION: This is a 79-year-old male. Appearance is disheveled. Attitude, irritable and agitated. Affect, guarded and restricted. Intellect poor. He does not know current events, does not know last four presidents. Mood, depressed and anxious. Motor activity, psychomotor agitation. Attention span is poor because he cannot do serial sevens and spell "world" backwards. Orientation x2. He is oriented to person and place, not time and situation. Speech is low volume, slurred. Thought process, disorganized and illogical. Insight is poor because he does not recognize having a psychiatric disorder. Judgment is poor, he does not accept consequences for action. he has a hard time ace for safety . Short-term memory 3/3 recall after 5 minutes delay with good short-term memory. Long-term is intact based on the knowledge of long-term events in his life such as the high school that he went to. DIAGNOSES: 1. Major depressive disorder, mild, recurrent with psychotic features, rule out dementia with psychosis. 2. Secondary, cocaine and alcohol abuse. 3. Medical, he has chronic pain, COPD, CVA, back pain, degenerative joint disease. 4. Psychosocial stressors, financial. 5. Functional impairment is severe. PLAN: I am going to treat this patient with a medication regimen consisting of Ativan 1 every 6 hours p.r.n. anxiety, agitation and I am also going to treat this patient with medication regimen consisting of Namenda 5 mg twice a day to prevent further decline in cognition. . ESTIMATED LENGTH OF STAY: 3 to 7 days. PROGNOSIS: Fair. PRELIMINARY DISCHARGE PLAN: . Twenty minutes of cognitive behavioral therapy provided to help him identify his automatic negative thoughts, help him convert his negative thoughts to more positive thoughts to reduce depression, anxiety, and mood lability. Chart reviewed. Discussed with staff. Seen and assessed in his room. Misha Bird M.D. DR: ROHAN JOB#: [id number] CC:
[2020-01-03 08:45] LABS: HEMATOCRIT 34.4 % (42.0-52.0); HEMOGLOBIN 11.2 G/DL (14.2-18.0); MEAN CORPUSCULAR VOLUME 104 FL (80-99); PLATELET COUNT 131 K/UL (150-450); RED BLOOD COUNT 3.31 M/UL (4.70-6.10); RED CELL DISTRIBUTION WIDTH 16.1 % (11.6-14.8); WHITE BLOOD COUNT 7.8 K/UL (4.8-10.8)
[2020-01-03 08:55] LABS: ANION GAP 6 mmol/L (5-15); BLOOD UREA NITROGEN 20 mg/dL (7-18); CALCIUM 8.1 MG/DL (8.5-10.1); CARBON DIOXIDE 32 MMOL/L (21-32); CHLORIDE 98 MMOL/L (98-107); POTASSIUM 4.2 MMOL/L (3.5-5.1); SODIUM 136 MMOL/L (136-145)
[2020-01-03] MEDS: Heparin 5000 units/ml inj SUBQ SCH ×2 (09:00→20:24)
[2020-01-03] MEDS: Memantine 5 MG TAB ORAL SCH (09:24)
[2020-01-03] MEDS: Aspirin EC 81mg tab ORAL SCH (09:24)
[2020-01-03] MEDS: Docusate 100mg cap ORAL SCH ×3 (09:24→18:03)
[2020-01-03] MEDS: Theophylline ER 100mg ORAL SCH ×2 (09:25→20:47)
[2020-01-03] MEDS: Azithromycin 250mg tab ORAL SCH (09:25)
[2020-01-03] MEDS: Solu-MEDROL 125mg Inj IV SCH (09:25)
--- NOTE | 2020-01-03 09:30 | Progress Note ---
DATE: 01/03/2020 SUBJECTIVE: This is a 79-year-old male patient with hypoxia. He is confused and disorganized. He has got no plans for his own self-care. He still has some altered mental status and confusion. His cognition has declined significantly below his baseline due to his medical problems. MENTAL STATUS EXAMINATION: This is a 79-year-old male. Appearance is disheveled. Attitude, irritable and agitated. Affect, guarded and restricted. Intellect, poor. Mood, depressed and anxious. Motor activity, psychomotor agitation. Attention span is poor. Orientation x2. Speech is low volume and slurred. Thought process is disorganized and illogical. Insight and judgment is poor. DIAGNOSIS: Major depressive disorder, mild, recurrent with psychotic features, rule out dementia with psychosis. PLAN: Continue working with this patient to prevent any further decline in his cognition. A 20 minutes of cognitive behavioral therapy to help him identify his automatic negative thoughts and convert those negative thoughts to more positive thoughts to reduce depression, anxiety, and mood lability. Chart reviewed. Discussed with staff. Seen and assessed at bedside. Misha Bird M.D. DR: TRANG JOB#: [id number] CC:
--- NOTE | 2020-01-03 09:43 | NUR ---
NURSE NOTES: Report received from Deidra OLMOS. Patient seen on rounds AxOx4 with periods of forgetfulness, not in distress, tolerating room air. PIV on left forearm patent and intact. Pt is continent and ambulatory. Isolation precautions maintained. Bed low and locked, siderails up x2, call light placed within reach and instructed to call nurse for assistance. Will continue to monitor.
--- NOTE | 2020-01-03 09:50 | Nephrology Progress Note ---
Assessment/Plan Problem List: (1) Electrolyte imbalance (2) Hypokalemia (3) Acute exacerbation of chronic obstructive airways disease (4) History of cocaine abuse (5) HTN (hypertension) Assessment This 79-year-old male is admitted with hypoxia, and leg swelling Renal impression: Hypokalemia, unclear etiology. No definite history of diarrhea given by the patient. No diuretic on the list of medications. Hypomagnesemia. Other conditions: Exacerbation of COPD, acute bronchitis, suspected COVID-19 infection Elevated lactate acid Patient is chronic smoker History of cocaine and marijuana abuse Hypertension Chronic back pain History of CVA Anemia Homelessness . Plan Potassium supplement as needed Start clonidine for blood pressure with parameters. Check chemistry panel as needed Continue per pulmonary management, pulmonary toilet, steroids, aim to taper as possible, per pulmonary Potassium and magnesium supplement as needed. Monitor renal parameters and electrolytes. Keep the blood pressure and blood sugar in check. Per orders. Subjective ROS Limited/Unobtainable: No Constitutional: Reports: malaise Objective Objective Last 24 Hour Vital Signs Date Time Temp Pulse Resp B/P (MAP) Pulse Ox O2 Delivery O2 Flow Rate FiO2 01/03/20 08:00 97.3 67 22 126/80 (95) 98 01/03/20 05:19 69 150/72 01/03/20 05:19 150/72 01/03/20 04:00 98.2 69 19 150/72 (98) 97 01/03/20 00:00 97.4 74 19 120/72 (88) 96 01/02/20 21:14 82 118/66 01/02/20 21:14 118/66 01/02/20 20:20 Room Air 01/02/20 20:00 98.0 82 19 118/66 (83) 98 01/02/20 18:30 97.0 76 18 152/96 (114) 95 01/02/20 16:00 96.3 90 20 131/70 (90) 97 01/02/20 15:41 71 01/02/20 13:13 93 132/74 01/02/20 13:13 132/74 01/02/20 11:44 97.7 93 20 132/74 (93) 97 01/02/20 11:42 57 Intake and Output 01/02/20 01/03/20 19:00 07:00 Intake Total 1045 ml 800 ml Balance 1045 ml 800 ml Intake Oral 990 ml 800 ml IV Total 55 ml # Voids 3 4 Laboratory Tests 01/03/20 08:35: White Blood Count 7.8, Red Blood Count 3.31L, Hemoglobin 11.2L, Hematocrit 34.4L , Mean Corpuscular Volume 104H, Mean Corpuscular Hemoglobin 33.7H, Mean Corpuscular Hemoglobin Concent 32.5, Red Cell Distribution Width 16.1H, Platelet Count 131L, Mean Platelet Volume 7.3, Neutrophils (%) (Auto) , Lymphocytes (%) (Auto) , Monocytes (%) (Auto) , Eosinophils (%) (Auto) , Basophils (%) (Auto) , Neutrophils % (Manual) [Pending], Lymphocytes % (Manual) [Pending], Platelet Estimate [Pending], Platelet Morphology [Pending], Sodium Level 136, Potassium Level 4.2, Chloride Level 98, Carbon Dioxide Level 32, Anion Gap 6, Blood Urea Nitrogen 20H, Creatinine 1.0, Estimat Glomerular Filtration Rate > 60, Glucose Level 198H, Calcium Level 8.1L, Magnesium Level 2.0 Height (Feet): 6 Height (Inches): 2.00 Weight (Pounds): 170 General Appearance: no apparent distress Respiratory/Chest: decreased breath sounds Abdomen: distended Micky Ivy MD Jan 03, 2020 09:50
--- NOTE | 2020-01-03 10:43 | General Progress Note ---
Assessment/Plan Problem List: (1) COPD (chronic obstructive pulmonary disease) ICD Codes: J44.9 - Chronic obstructive pulmonary disease, unspecified SNOMED: 14560176 Qualifiers: Qualified Codes: J44.9 - Chronic obstructive pulmonary disease, unspecified (2) Elevated lactic acid level ICD Codes: R79.89 - Other specified abnormal findings of blood chemistry SNOMED: 2249419 (3) Hypokalemia ICD Codes: E87.6 - Hypokalemia SNOMED: 71206600, 434013078 (4) Hypoxia ICD Codes: R09.02 - Hypoxemia SNOMED: 711338977 (5) Acute exacerbation of chronic obstructive airways disease ICD Codes: J44.1 - Acute exacerbation of chronic obstructive airways disease SNOMED: 788094317 (6) Chronic back pain ICD Codes: G89.29 - Other chronic pain; M54.9 - Chronic back pain SNOMED: 305564725 (7) History of CVA (cerebrovascular accident) ICD Codes: Z86.73 - History of stroke SNOMED: 261880920 (8) ACS (acute coronary syndrome) ICD Codes: I20.0 - Unstable angina SNOMED: 216773045 Status: stable, progressing Assessment/Plan: o2 pulm tx abx pain control pt diet cbc bmp am Subjective Constitutional: Reports: weakness Allergies: Coded Allergies: No Known Allergies (Unverified , 08/14/19) All Systems: reviewed and negative except above Subjective sleepy calm Objective Last 24 Hour Vital Signs Date Time Temp Pulse Resp B/P (MAP) Pulse Ox O2 Delivery O2 Flow Rate FiO2 01/03/20 08:00 97.3 67 22 126/80 (95) 98 01/03/20 05:19 69 150/72 01/03/20 05:19 150/72 01/03/20 04:00 98.2 69 19 150/72 (98) 97 01/03/20 00:00 97.4 74 19 120/72 (88) 96 01/02/20 21:14 82 118/66 01/02/20 21:14 118/66 01/02/20 20:20 Room Air 01/02/20 20:00 98.0 82 19 118/66 (83) 98 01/02/20 18:30 97.0 76 18 152/96 (114) 95 01/02/20 16:00 96.3 90 20 131/70 (90) 97 01/02/20 15:41 71 01/02/20 13:13 93 132/74 01/02/20 13:13 132/74 01/02/20 11:44 97.7 93 20 132/74 (93) 97 01/02/20 11:42 57 Intake and Output 01/02/20 01/03/20 19:00 07:00 Intake Total 1045 ml 800 ml Balance 1045 ml 800 ml Intake Oral 990 ml 800 ml IV Total 55 ml # Voids 3 4 Laboratory Tests 01/03/20 08:35: White Blood Count 7.8, Red Blood Count 3.31L, Hemoglobin 11.2L, Hematocrit 34.4L , Mean Corpuscular Volume 104H, Mean Corpuscular Hemoglobin 33.7H, Mean Corpuscular Hemoglobin Concent 32.5, Red Cell Distribution Width 16.1H, Platelet Count 131L, Mean Platelet Volume 7.3, Neutrophils (%) (Auto) , Lymphocytes (%) (Auto) , Monocytes (%) (Auto) , Eosinophils (%) (Auto) , Basophils (%) (Auto) , Neutrophils % (Manual) [Pending], Lymphocytes % (Manual) [Pending], Platelet Estimate [Pending], Platelet Morphology [Pending], Sodium Level 136, Potassium Level 4.2, Chloride Level 98, Carbon Dioxide Level 32, Anion Gap 6, Blood Urea Nitrogen 20H, Creatinine 1.0, Estimat Glomerular Filtration Rate > 60, Glucose Level 198H, Calcium Level 8.1L, Magnesium Level 2.0 Height (Feet): 6 Height (Inches): 2.00 Weight (Pounds): 170 General Appearance: lethargic EENT: normal ENT inspection Neck: normal alignment Cardiovascular: normal rate, regular rhythm Respiratory/Chest: no respiratory distress, no accessory muscle use Extremities: normal inspection Skin: normal pigmentation Fred Kay DO Jan 03, 2020 10:43
--- NOTE | 2020-01-03 11:03 | NUR ---
NURSE NOTES: Pt informed of MD orders for nasopharyngeal swab and is refusing to be re-swabbed for Covid. Pt became very upset and said he did not want to be swabbed again. Dr. Schultz informed. Awaiting response.
--- NOTE | 2020-01-03 11:09 | NUR ---
NURSE NOTES: Dr. Schultz responded and is aware pt is refusing second Covid swab.
[2020-01-03 12:00] VITALS: BP 127/70
--- NOTE | 2020-01-03 12:18 | Pulmonology Progress Note ---
Subjective ROS Limited/Unobtainable: No Constitutional: Reports: no symptoms Allergies: Coded Allergies: No Known Allergies (Unverified , 08/14/19) All Systems: reviewed and negative except above Objective Last 24 Hour Vital Signs Date Time Temp Pulse Resp B/P (MAP) Pulse Ox O2 Delivery O2 Flow Rate FiO2 01/03/20 09:00 Room Air 01/03/20 08:00 97.3 67 22 126/80 (95) 98 01/03/20 05:19 69 150/72 01/03/20 05:19 150/72 01/03/20 04:00 98.2 69 19 150/72 (98) 97 01/03/20 00:00 97.4 74 19 120/72 (88) 96 01/02/20 21:14 82 118/66 01/02/20 21:14 118/66 01/02/20 20:20 Room Air 01/02/20 20:00 98.0 82 19 118/66 (83) 98 01/02/20 18:30 97.0 76 18 152/96 (114) 95 01/02/20 16:00 96.3 90 20 131/70 (90) 97 01/02/20 15:41 71 01/02/20 13:13 93 132/74 01/02/20 13:13 132/74 Intake and Output 01/02/20 01/03/20 19:00 07:00 Intake Total 1045 ml 800 ml Balance 1045 ml 800 ml Intake Oral 990 ml 800 ml IV Total 55 ml # Voids 3 4 General Appearance: cachetic - male in NAD HEENT: normocephalic, atraumatic Respiratory: chest wall non-tender, decreased breath sounds, other - isolated rhonchi Cardiovascular: normal peripheral pulses, normal rate Abdomen: normal bowel sounds, soft, non tender Extremities: no edema, pedal pulses normal Skin: no rash 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 normal, alert, oriented x 3, responsive Musculoskeletal: normal muscle bulk Laboratory Tests 01/03/20 08:35: White Blood Count 7.8, Red Blood Count 3.31L, Hemoglobin 11.2L, Hematocrit 34.4L , Mean Corpuscular Volume 104H, Mean Corpuscular Hemoglobin 33.7H, Mean Corpuscular Hemoglobin Concent 32.5, Red Cell Distribution Width 16.1H, Platelet Count 131L, Mean Platelet Volume 7.3, Neutrophils (%) (Auto) , Lymphocytes (%) (Auto) , Monocytes (%) (Auto) , Eosinophils (%) (Auto) , Basophils (%) (Auto) , Differential Total Cells Counted 100, Neutrophils % ( Manual) 78H, Lymphocytes % (Manual) 13L, Monocytes % (Manual) 9, Eosinophils % ( Manual) 0, Basophils % (Manual) 0, Band Neutrophils 0, Platelet Estimate DecreasedL, Platelet Morphology Normal, Hypochromasia 1+, Anisocytosis 1+, Macrocytosis 1+, Sodium Level 136, Potassium Level 4.2, Chloride Level 98, Carbon Dioxide Level 32, Anion Gap 6, Blood Urea Nitrogen 20H, Creatinine 1.0, Estimat Glomerular Filtration Rate > 60, Glucose Level 198H, Calcium Level 8.1L , Magnesium Level 2.0 Current Medications Medications (Trade) Dose Ordered Sig/[place] Route PRN Reason Start Time Stop Time Status Last Admin Dose Admin Acetaminophen/ Hydrocodone Bitart ([place] 10/325) 1 tab Q4H PRN ORAL For Pain 01/02/20 18:05 01/06/20 18:04 Albuterol/ Ipratropium (Combivent Respimat) 1 puff Q4H PRN INH dyspnea 01/02/20 18:30 01/07/20 02:29 Aspirin (Ecotrin) 81 mg DAILY ORAL 01/03/20 09:00 02/16/20 08:59 01/03/20 09:24 Azithromycin (Zithromax) 500 mg DAILY ORAL 01/03/20 09:00 01/07/20 14:29 01/03/20 09:25 Ceftriaxone Sodium 1 gm/ Dextrose 55 ml @ 110 mls/hr Q24H IVPB 01/03/20 15:00 01/07/20 14:59 Clonidine HCl (Catapres Tab) 0.1 mg EVERY 8 HOURS ORAL 01/02/20 22:00 03/31/20 13:59 01/03/20 05:19 Clonidine HCl (Catapres Tab) 0.1 mg Q4H PRN ORAL bp over 165 syst 01/02/20 18:02 03/30/20 18:01 Dextrose (Dextrose 50%) 25 ml Q30M PRN IV Hypoglycemia 01/02/20 18:00 03/29/20 12:59 Dextrose (Dextrose 50%) 50 ml Q30M PRN IV Hypoglycemia 01/02/20 18:00 03/29/20 12:59 Diltiazem HCl (Cardizem) 60 mg EVERY 8 HOURS ORAL 01/02/20 22:00 01/31/20 21:59 01/03/20 05:19 Docusate Sodium (Colace) 100 mg THREE TIMES A DAY ORAL 01/02/20 18:00 01/30/20 08:59 01/03/20 09:24 Folic Acid (Folate) 2 mg DAILY ORAL 01/03/20 09:00 01/31/20 08:59 01/03/20 09:25 Furosemide (Lasix) 20 mg DAILY IV 01/03/20 09:00 01/31/20 08:59 01/03/20 09:25 Heparin Sodium (Porcine) (Heparin 5000 units/ml) 5,000 units EVERY 12 HOURS SUBQ 01/02/20 21:00 02/13/20 20:59 01/02/20 21:19 Lorazepam (Ativan 2mg/ml 1ml) 0.5 mg Q4H PRN IV For Anxiety 01/02/20 18:05 01/06/20 18:04 Memantine (Namenda) 5 mg DAILY ORAL 01/03/20 09:00 01/31/20 08:59 01/03/20 09:24 Methylprednisolone Sodium Succinate (Solu-MEDROL) 60 mg Q12HR IV 01/02/20 21:00 03/29/20 17:59 01/03/20 09:25 Nitroglycerin (Ntg) 0.4 mg Q5M X 3 DOSES PRN SL Prn Chest Pain 01/02/20 18:00 01/29/20 12:59 Ondansetron HCl (Zofran) 4 mg Q6H PRN IVP Nausea & Vomiting 01/02/20 18:06 01/29/20 18:05 Pantoprazole (Protonix) 40 mg EVERY 12 HOURS ORAL 01/02/20 21:00 01/29/20 20:59 01/03/20 09:24 Potassium Chloride (K-Dur) 40 meq BID ORAL 01/02/20 18:00 03/30/20 09:59 01/03/20 09:24 Promethazine HCl/ Codeine (Phenergan with Codeine) 5 ml Q6H PRN ORAL cough 01/02/20 18:06 01/29/20 18:05 Temazepam (Restoril) 15 mg HSPRN PRN ORAL Insomnia 01/03/20 13:00 01/06/20 12:59 Theophylline (Rigoberto-Dur) 100 mg EVERY 12 HOURS ORAL 01/02/20 21:00 03/29/20 20:59 01/03/20 09:25 Assessment/Plan Problems: (1) Acute exacerbation of chronic obstructive airways disease (2) Acute bronchitis (3) Pulmonary nodule (4) Emphysema (5) Chronic back pain (6) History of CVA (cerebrovascular accident) (7) History of cocaine abuse (8) Tobacco dependence Assessment/Plan respiratory treatment iv steroids, taper slowly, QD now check sputum, Klebsiella in sputum titrate fio2 to sat of 92% diuretics prn, Lasix qd, watch electrolytes cardiology evaluation dvt prophylaxis. Farhan Ortega MD Jan 03, 2020 12:18
--- NOTE | 2020-01-03 14:43 | Infectious Diseases Prog Note ---
Assessment/Plan Assessment/Plan Assessment: Viral syndrome- r/o COVID19, acute HIV, bacteremia -12/29 SARS-COV2 pCR neg -Bcx NTD COPD exacerbation Mild hypoxia upon admission- now resolved- at RA -01/01 CXR: Mild linear atelectasis versus scarring in the right lung base, not significantly changed. The lungs otherwise appear clear -12/29 CXR: Basilar atelectasis and scarring. No acute disease. -sp cx K. pna (R amp; otherwise S) Afebrile No leukocytosis Thrombocytopenia/Lymphopenia Lactic acidosis;SP -u/a neg -Bcx NTD COPD homelessness (lives in his car) HTN OA DJD HLD chronic back pain CVA smoker cocaine and THC use Plan: -Cont Ceftriaxone #4 (abx d #5/) and Azithromycin #4/5 -12/30 SP ZOsyn #2 -f/u cx -Monitor CBC/CMP, temperatures -COVID19 isolation and testing; [id number] test- will keep isolation for now -f/u HIV ab screen and VL, RPR, acute hep panel Thank you for this consultation. Will continue to follow along with you. Discussed with RN. Subjective Allergies: Coded Allergies: No Known Allergies (Unverified , 08/14/19) Subjective afebrile at no leukocytosis pt refused 2nd covid test Objective Vital Signs Last 24 Hour Vital Signs Date Time Temp Pulse Resp B/P (MAP) Pulse Ox O2 Delivery O2 Flow Rate FiO2 01/03/20 13:58 66 127/70 01/03/20 13:58 127/70 01/03/20 12:00 97.7 66 22 127/70 (89) 97 01/03/20 09:00 Room Air 01/03/20 08:00 97.3 67 22 126/80 (95) 98 01/03/20 05:19 69 150/72 01/03/20 05:19 150/72 01/03/20 04:00 98.2 69 19 150/72 (98) 97 01/03/20 00:00 97.4 74 19 120/72 (88) 96 01/02/20 21:14 82 118/66 01/02/20 21:14 118/66 01/02/20 20:20 Room Air 01/02/20 20:00 98.0 82 19 118/66 (83) 98 01/02/20 18:30 97.0 76 18 152/96 (114) 95 01/02/20 16:00 96.3 90 20 131/70 (90) 97 01/02/20 15:41 71 Height (Feet): 6 Height (Inches): 2.00 Weight (Pounds): 170 Objective not examined to limit COVID19 exposure Laboratory Tests Test 01/03/20 08:35 White Blood Count 7.8 K/UL (4.8-10.8) Red Blood Count 3.31 M/UL (4.70-6.10) L Hemoglobin 11.2 G/DL (14.2-18.0) L Hematocrit 34.4 % (42.0-52.0) L Mean Corpuscular Volume 104 FL (80-99) H Mean Corpuscular Hemoglobin 33.7 PG (27.0-31.0) H Mean Corpuscular Hemoglobin Concent 32.5 G/DL (32.0-36.0) Red Cell Distribution Width 16.1 % (11.6-14.8) H Platelet Count 131 K/UL (150-450) L Mean Platelet Volume 7.3 FL (6.5-10.1) Neutrophils (%) (Auto) % (45.0-75.0) Lymphocytes (%) (Auto) % (20.0-45.0) Monocytes (%) (Auto) % (1.0-10.0) Eosinophils (%) (Auto) % (0.0-3.0) Basophils (%) (Auto) % (0.0-2.0) Differential Total Cells Counted 100 Neutrophils % (Manual) 78 % (45-75) H Lymphocytes % (Manual) 13 % (20-45) L Monocytes % (Manual) 9 % (1-10) Eosinophils % (Manual) 0 % (0-3) Basophils % (Manual) 0 % (0-2) Band Neutrophils 0 % (0-8) Platelet Estimate Decreased L Platelet Morphology Normal Hypochromasia 1+ Anisocytosis 1+ Macrocytosis 1+ Sodium Level 136 MMOL/L (136-145) Potassium Level 4.2 MMOL/L (3.5-5.1) Chloride Level 98 MMOL/L (98-107) Carbon Dioxide Level 32 MMOL/L (21-32) Anion Gap 6 mmol/L (5-15) Blood Urea Nitrogen 20 mg/dL (7-18) H Creatinine 1.0 MG/DL (0.55-1.30) Estimat Glomerular Filtration Rate > 60 mL/min (>60) Glucose Level 198 MG/DL (74-106) H Calcium Level 8.1 MG/DL (8.5-10.1) L Magnesium Level 2.0 MG/DL (1.8-2.4) Current Medications Medications (Trade) Dose Ordered Sig/[place]ila Route PRN Reason Start Time Stop Time Status Last Admin Dose Admin Acetaminophen/ Hydrocodone Bitart ([place] 10/325) 1 tab Q4H PRN ORAL For Pain 01/02/20 18:05 01/06/20 18:04 Albuterol/ Ipratropium (Combivent Respimat) 1 puff Q4H PRN INH dyspnea 01/02/20 18:30 01/07/20 02:29 Aspirin (Ecotrin) 81 mg DAILY ORAL 01/03/20 09:00 02/16/20 08:59 01/03/20 09:24 Azithromycin (Zithromax) 500 mg DAILY ORAL 01/03/20 09:00 01/07/20 14:29 01/03/20 09:25 Ceftriaxone Sodium 1 gm/ Dextrose 55 ml @ 110 mls/hr Q24H IVPB 01/03/20 15:00 01/07/20 14:59 01/03/20 14:08 Clonidine HCl (Catapres Tab) 0.1 mg EVERY 8 HOURS ORAL 01/02/20 22:00 03/31/20 13:59 01/03/20 13:58 Clonidine HCl (Catapres Tab) 0.1 mg Q4H PRN ORAL bp over 165 syst 01/02/20 18:02 03/30/20 18:01 Dextrose (Dextrose 50%) 25 ml Q30M PRN IV Hypoglycemia 01/02/20 18:00 03/29/20 12:59 Dextrose (Dextrose 50%) 50 ml Q30M PRN IV Hypoglycemia 01/02/20 18:00 03/29/20 12:59 Diltiazem HCl (Cardizem) 60 mg EVERY 8 HOURS ORAL 01/02/20 22:00 01/31/20 21:59 01/03/20 13:58 Docusate Sodium (Colace) 100 mg THREE TIMES A DAY ORAL 01/02/20 18:00 01/30/20 08:59 01/03/20 13:58 Folic Acid (Folate) 2 mg DAILY ORAL 01/03/20 09:00 01/31/20 08:59 01/03/20 09:25 Furosemide (Lasix) 20 mg DAILY IV 01/03/20 09:00 01/31/20 08:59 01/03/20 09:25 Heparin Sodium (Porcine) (Heparin 5000 units/ml) 5,000 units EVERY 12 HOURS SUBQ 01/02/20 21:00 02/13/20 20:59 01/02/20 21:19 Lorazepam (Ativan 2mg/ml 1ml) 0.5 mg Q4H PRN IV For Anxiety 01/02/20 18:05 01/06/20 18:04 Memantine (Namenda) 5 mg DAILY ORAL 01/03/20 09:00 01/31/20 08:59 01/03/20 09:24 Methylprednisolone Sodium Succinate (Solu-MEDROL) 60 mg DAILY IV 01/04/20 09:00 03/29/20 17:59 Nitroglycerin (Ntg) 0.4 mg Q5M X 3 DOSES PRN SL Prn Chest Pain 01/02/20 18:00 01/29/20 12:59 Ondansetron HCl (Zofran) 4 mg Q6H PRN IVP Nausea & Vomiting 01/02/20 18:06 01/29/20 18:05 Pantoprazole (Protonix) 40 mg EVERY 12 HOURS ORAL 01/02/20 21:00 01/29/20 20:59 01/03/20 09:24 Potassium Chloride (K-Dur) 40 meq BID ORAL 01/02/20 18:00 03/30/20 09:59 01/03/20 09:24 Promethazine HCl/ Codeine (Phenergan with Codeine) 5 ml Q6H PRN ORAL cough 01/02/20 18:06 01/29/20 18:05 Temazepam (Restoril) 15 mg HSPRN PRN ORAL Insomnia 01/03/20 13:00 01/06/20 12:59 Theophylline (Rigoberto-Dur) 100 mg EVERY 12 HOURS ORAL 01/02/20 21:00 03/29/20 20:59 01/03/20 09:25 Isabel Schultz M.D. Jan 03, 2020 14:43
[2020-01-03] MEDS ORDERED: cefTRIAXone 1 GM in D5W 55 ML IVPB SCH (15:00)
[2020-01-03 16:00] VITALS: BP 135/64
--- NOTE | 2020-01-03 16:28 | NUR ---
CASE MANAGEMENT:REVIEW SI;BACTEREMIA. COPD EXACERBATION. ACUTE BRONCHITIS. EMPHYSEMA. 98.2 69 22 150/72 97% ON RA K+ 3.4 CO2 34 BUN 20 BG 198 IS;SOLU-MEDROL IV QD ROCEPHIN IV Q24 ASA PO QD ZITHROMAX PO QD LASIX IV QD HEPARIN SUBQ Q12 PROTONIX PO Q12 TYREE-FUR PO Q12 COMBIVENT INH Q4 MED SURG STATUS DCP;FROM HOME
--- NOTE | 2020-01-03 19:30 | NUR ---
NURSE NOTES: Received patient awake in bed, alert and oriented x4, patient was in a good mood at first but when he asked for some cookies and he was told will check the pantry if what we have because it might not be available due to kitchen is closed already at this time. Patient got mad and started yelling at RN with disrespected words. Attempted to deescalate but patient just got more anxious. Encouraged patient to stay calm and will check some other units. Will continue to monitor.
--- NOTE | 2020-01-03 19:40 | NUR ---
HAND-OFF: Report given to Mitchell OLMOS. Endorsed that patient refused Covid swab and that Dr. Schultz is aware.
[2020-01-03 20:00] VITALS: BP 133/67
--- NOTE | 2020-01-03 22:00 | NUR ---
NURSE NOTES: Got some snacks for the patient from accounts receivable supervisor's pantry. Patient took his night meds but pt refused to do skin assessment at this time. Will try again later.
[2020-01-03] MEDS: HYDROcodone/Acetamin 10/325 tab ORAL PRN (22:32)
[2020-01-04] VITALS: BP 125/65
[2020-01-04 04:00] VITALS: BP 120/72
[2020-01-04] MEDS: dilTIAZem HCl 60mg tab ORAL SCH ×3 (05:16→21:32)
[2020-01-04 08:00] VITALS: BP 137/75
--- NOTE | 2020-01-04 08:00 | NUR ---
NURSE NOTES: received report from NICKOLAS Junior. patient in bed. A&Ox4, verbally responsive. no respiratory distress noted on room air. no pain at this time. IV on LFA 22g saline lock. intact. droplet and contact isolation for PUI Covid. bed in the lowest position and locked. call light within reach. will continue to provide plan of care.
[2020-01-04] MEDS: Heparin 5000 units/ml inj SUBQ SCH ×2 (09:00→20:45)
[2020-01-04] MEDS: Theophylline ER 100mg ORAL SCH ×2 (09:07→21:00)
[2020-01-04] MEDS: Docusate 100mg cap ORAL SCH ×3 (09:07→17:23)
[2020-01-04] MEDS: Solu-MEDROL 125mg Inj IV SCH (09:07)
--- NOTE | 2020-01-04 09:07 | NUR ---
NURSE NOTES: patient refused taking Lasix IVP and protonix tab PO. Patient said that he had pee a lot in the morning and he doesn't need GT ppx medication now. explained risks and benefits.
[2020-01-04] MEDS: Azithromycin 250mg tab ORAL SCH (09:08)
[2020-01-04] MEDS: Memantine 5 MG TAB ORAL SCH (09:08)
[2020-01-04] MEDS: Aspirin EC 81mg tab ORAL SCH (09:08)
--- NOTE | 2020-01-04 09:50 | Nephrology Progress Note ---
Assessment/Plan Problem List: (1) Electrolyte imbalance (2) Hypokalemia (3) Acute exacerbation of chronic obstructive airways disease (4) History of cocaine abuse (5) HTN (hypertension) Assessment This 79-year-old male is admitted with hypoxia, and leg swelling Renal impression: Hypokalemia, unclear etiology. No definite history of diarrhea given by the patient. No diuretic on the list of medications. Hypomagnesemia. Other conditions: Exacerbation of COPD, acute bronchitis, suspected COVID-19 infection Elevated lactate acid Patient is chronic smoker History of cocaine and marijuana abuse Hypertension Chronic back pain History of CVA Anemia Homelessness . Plan Remains stable from renal standpoint of view Potassium supplement as needed Start clonidine for blood pressure with parameters. Check chemistry panel as needed Continue per pulmonary management, pulmonary toilet, steroids, aim to taper as possible, per pulmonary Potassium and magnesium supplement as needed. Monitor renal parameters and electrolytes. Keep the blood pressure and blood sugar in check. Per orders. Subjective ROS Limited/Unobtainable: No Objective Objective Last 24 Hour Vital Signs Date Time Temp Pulse Resp B/P (MAP) Pulse Ox O2 Delivery O2 Flow Rate FiO2 01/04/20 08:00 96.3 83 20 137/75 (95) 97 01/04/20 05:16 70 120/72 01/04/20 05:16 120/72 01/04/20 04:00 97.9 70 20 120/72 (88) 98 01/04/20 00:00 97.6 74 21 125/65 (85) 99 01/03/20 21:01 68 133/67 01/03/20 21:00 Room Air 01/03/20 20:00 96.6 68 20 133/67 (89) 97 01/03/20 16:00 97.5 76 22 135/64 (87) 97 01/03/20 13:58 66 127/70 01/03/20 13:58 127/70 01/03/20 12:00 97.7 66 22 127/70 (89) 97 Intake and Output 01/03/20 01/04/20 19:00 07:00 Intake Total 650 ml 1000 ml Balance 650 ml 1000 ml Intake Oral 650 ml 1000 ml # Voids 3 Laboratory Tests 01/04/20 05:20: Rapid Plasma Reagin [Pending], Hepatitis A IgM Antibody [Pending], Hepatitis B Surface Antigen [Pending], Hepatitis B Core IgM Antibody [Pending], Hepatitis C Antibody [Pending], HIV-1 RNA (PCR) log10 Value [Pending], HIV-1 RNA Ultraquantitative (PCR) [Pending] Height (Feet): 6 Height (Inches): 2.00 Weight (Pounds): 170 General Appearance: no apparent distress Cardiovascular: normal rate Respiratory/Chest: decreased breath sounds Objective No change Micky Ivy MD Jan 04, 2020 09:50
--- NOTE | 2020-01-04 11:44 | NUR ---
RD ASSESSMENT & RECOMMENDATIONS SEE CARE ACTIVITY FOR COMPLETE ASSESSMENT DAILY ESTIMATED NEEDS: Needs based on Cardiac, pulmonary, wound / 82kg 25-35 kcals/kg 0092-8312 total kcals 1.25-1.5 g protein/kg 103-123 g total protein Per MD, elev BNP NUTRITION DIAGNOSIS: Decreased sodium needs R/T cardiac hx as evidenced by elev BNP (3219), elev BP w/ h/o HTN. CURRENT DIET:REGULAR PO DIET RECOMMENDATIONS: Low Sodium/ texture as tolerated ADDITIONAL RECOMMENDATIONS: * Updated standing weight * Rec bed side BG w/ solumedrol * Check lytes daily, replete as needed * Wound photos noted-> rec eval. Add PATT BID * Add Ensure BID + snacks w/ current fair intake
--- NOTE | 2020-01-04 11:48 | Infectious Diseases Prog Note ---
Assessment/Plan Assessment/Plan Assessment: Viral syndrome- r/o COVID19, acute HIV, bacteremia -12/29 SARS-COV2 pCR neg -Bcx NTD COPD exacerbation Mild hypoxia upon admission- now resolved- at RA -01/01 CXR: Mild linear atelectasis versus scarring in the right lung base, not significantly changed. The lungs otherwise appear clear -12/29 CXR: Basilar atelectasis and scarring. No acute disease. -sp cx K. pna (R amp; otherwise S) Afebrile No leukocytosis Thrombocytopenia/Lymphopenia Lactic acidosis;SP -u/a neg -Bcx NTD COPD homelessness (lives in his car) HTN OA DJD HLD chronic back pain CVA smoker cocaine and THC use Plan: -Azithromycin #5/5 -01/02 SP Ceftriaxone #4 -12/30 SP ZOsyn #2 -f/u cx -Monitor CBC/CMP, temperatures -COVID19 isolation and testing; [id number] test- will keep isolation for now -f/u HIV ab screen and VL, RPR, acute hep panel Thank you for this consultation. Will continue to follow along with you. Discussed with RN. Subjective Allergies: Coded Allergies: No Known Allergies (Unverified , 08/14/19) Subjective afebrile at RA no leukocytosis pt refused 2nd covid test Objective Vital Signs Last 24 Hour Vital Signs Date Time Temp Pulse Resp B/P (MAP) Pulse Ox O2 Delivery O2 Flow Rate FiO2 01/04/20 09:00 Room Air 01/04/20 08:00 96.3 83 20 137/75 (95) 97 01/04/20 05:16 70 120/72 01/04/20 05:16 120/72 01/04/20 04:00 97.9 70 20 120/72 (88) 98 01/04/20 00:00 97.6 74 21 125/65 (85) 99 01/03/20 21:01 68 133/67 01/03/20 21:00 Room Air 01/03/20 20:00 96.6 68 20 133/67 (89) 97 01/03/20 16:00 97.5 76 22 135/64 (87) 97 01/03/20 13:58 66 127/70 01/03/20 13:58 127/70 01/03/20 12:00 97.7 66 22 127/70 (89) 97 Height (Feet): 6 Height (Inches): 2.00 Weight (Pounds): 170 Objective not examined to limit COVID19 exposure Laboratory Tests Test 01/04/20 05:20 Rapid Plasma Reagin Pending Hepatitis A IgM Antibody Pending Hepatitis B Surface Antigen Pending Hepatitis B Core IgM Antibody Pending Hepatitis C Antibody Pending HIV-1 RNA (PCR) log10 Value Pending HIV-1 RNA Ultraquantitative (PCR) Pending Current Medications Medications (Trade) Dose Ordered Sig/Aguila Route PRN Reason Start Time Stop Time Status Last Admin Dose Admin Acetaminophen/ Hydrocodone Bitart ([place] 10/325) 1 tab Q4H PRN ORAL For Pain 01/02/20 18:05 01/06/20 18:04 01/03/20 22:32 Albuterol/ Ipratropium (Combivent Respimat) 1 puff Q4H PRN INH dyspnea 01/02/20 18:30 01/07/20 02:29 Aspirin (Ecotrin) 81 mg DAILY ORAL 01/03/20 09:00 02/16/20 08:59 01/04/20 09:08 Azithromycin (Zithromax) 500 mg DAILY ORAL 01/03/20 09:00 01/07/20 14:29 01/04/20 09:08 Ceftriaxone Sodium 1 gm/ Dextrose 55 ml @ 110 mls/hr Q24H IVPB 01/03/20 15:00 01/07/20 14:59 01/03/20 14:08 Clonidine HCl (Catapres Tab) 0.1 mg EVERY 8 HOURS ORAL 01/02/20 22:00 03/31/20 13:59 01/03/20 13:58 Clonidine HCl (Catapres Tab) 0.1 mg Q4H PRN ORAL bp over 165 syst 01/02/20 18:02 03/30/20 18:01 Dextrose (Dextrose 50%) 25 ml Q30M PRN IV Hypoglycemia 01/02/20 18:00 03/29/20 12:59 Dextrose (Dextrose 50%) 50 ml Q30M PRN IV Hypoglycemia 01/02/20 18:00 03/29/20 12:59 Diltiazem HCl (Cardizem) 60 mg EVERY 8 HOURS ORAL 01/02/20 22:00 01/31/20 21:59 01/04/20 05:16 Docusate Sodium (Colace) 100 mg THREE TIMES A DAY ORAL 01/02/20 18:00 01/30/20 08:59 01/04/20 09:07 Folic Acid (Folate) 2 mg DAILY ORAL 01/03/20 09:00 01/31/20 08:59 01/04/20 09:07 Furosemide (Lasix) 20 mg DAILY IV 01/03/20 09:00 01/31/20 08:59 01/04/20 09:07 Heparin Sodium (Porcine) (Heparin 5000 units/ml) 5,000 units EVERY 12 HOURS SUBQ 01/02/20 21:00 02/13/20 20:59 01/02/20 21:19 Lorazepam (Ativan 2mg/ml 1ml) 0.5 mg Q4H PRN IV For Anxiety 01/02/20 18:05 01/06/20 18:04 Memantine (Namenda) 5 mg DAILY ORAL 01/03/20 09:00 01/31/20 08:59 01/04/20 09:08 Methylprednisolone Sodium Succinate (Solu-MEDROL) 60 mg DAILY IV 01/04/20 09:00 03/29/20 17:59 01/04/20 09:07 Nitroglycerin (Ntg) 0.4 mg Q5M X 3 DOSES PRN SL Prn Chest Pain 01/02/20 18:00 01/29/20 12:59 Ondansetron HCl (Zofran) 4 mg Q6H PRN IVP Nausea & Vomiting 01/02/20 18:06 01/29/20 18:05 Pantoprazole (Protonix) 40 mg EVERY 12 HOURS ORAL 01/02/20 21:00 01/29/20 20:59 01/04/20 09:07 Potassium Chloride (K-Dur) 40 meq BID ORAL 01/02/20 18:00 03/30/20 09:59 01/04/20 09:08 Promethazine HCl/ Codeine (Phenergan with Codeine) 5 ml Q6H PRN ORAL cough 01/02/20 18:06 01/29/20 18:05 Temazepam (Restoril) 15 mg HSPRN PRN ORAL Insomnia 01/03/20 13:00 01/06/20 12:59 Theophylline (Rigoberto-Dur) 100 mg EVERY 12 HOURS ORAL 01/02/20 21:00 03/29/20 20:59 01/04/20 09:07 Isabel Schultz M.D. Jan 04, 2020 11:48
[2020-01-04 12:00] VITALS: BP 147/89
--- NOTE | 2020-01-04 13:14 | General Progress Note ---
Assessment/Plan Problem List: (1) COPD (chronic obstructive pulmonary disease) ICD Codes: J44.9 - Chronic obstructive pulmonary disease, unspecified SNOMED: 40111913 Qualifiers: Qualified Codes: J44.9 - Chronic obstructive pulmonary disease, unspecified (2) Elevated lactic acid level ICD Codes: R79.89 - Other specified abnormal findings of blood chemistry SNOMED: 2290254 (3) Hypokalemia ICD Codes: E87.6 - Hypokalemia SNOMED: 54473083, 223445750 (4) Hypoxia ICD Codes: R09.02 - Hypoxemia SNOMED: 507730323 (5) Acute exacerbation of chronic obstructive airways disease ICD Codes: J44.1 - Acute exacerbation of chronic obstructive airways disease SNOMED: 220379865 (6) Chronic back pain ICD Codes: G89.29 - Other chronic pain; M54.9 - Chronic back pain SNOMED: 063161597 (7) History of CVA (cerebrovascular accident) ICD Codes: Z86.73 - History of stroke SNOMED: 228222104 (8) ACS (acute coronary syndrome) ICD Codes: I20.0 - Unstable angina SNOMED: 574420861 Status: stable, progressing Assessment/Plan: o2 pulm tx abx pain control pt diet cbc bmp am dc plan snf Subjective Constitutional: Reports: weakness Allergies: Coded Allergies: No Known Allergies (Unverified , 08/14/19) All Systems: reviewed and negative except above Subjective sleepy calm Objective Last 24 Hour Vital Signs Date Time Temp Pulse Resp B/P (MAP) Pulse Ox O2 Delivery O2 Flow Rate FiO2 01/04/20 12:00 96.4 74 20 147/89 (108) 98 01/04/20 09:00 Room Air 01/04/20 08:00 96.3 83 20 137/75 (95) 97 01/04/20 05:16 70 120/72 01/04/20 05:16 120/72 01/04/20 04:00 97.9 70 20 120/72 (88) 98 01/04/20 00:00 97.6 74 21 125/65 (85) 99 01/03/20 21:01 68 133/67 01/03/20 21:00 Room Air 01/03/20 20:00 96.6 68 20 133/67 (89) 97 6/22/20 16:00 97.5 76 22 135/64 (87) 97 01/03/20 13:58 66 127/70 01/03/20 13:58 127/70 Intake and Output 01/03/20 01/04/20 19:00 07:00 Intake Total 650 ml 1000 ml Balance 650 ml 1000 ml Intake Oral 650 ml 1000 ml # Voids 3 Laboratory Tests 01/04/20 05:20: Rapid Plasma Reagin [Pending], Hepatitis A IgM Antibody [Pending], Hepatitis B Surface Antigen [Pending], Hepatitis B Core IgM Antibody [Pending], Hepatitis C Antibody [Pending], HIV-1 RNA (PCR) log10 Value [Pending], HIV-1 RNA Ultraquantitative (PCR) [Pending] Height (Feet): 6 Height (Inches): 2.00 Weight (Pounds): 170 General Appearance: lethargic EENT: normal ENT inspection Neck: normal alignment Cardiovascular: normal rate, regular rhythm Respiratory/Chest: no respiratory distress, no accessory muscle use Extremities: normal inspection Skin: normal pigmentation Fred Kay DO Jan 04, 2020 13:14
--- NOTE | 2020-01-04 13:23 | Pulmonology Progress Note ---
Subjective ROS Limited/Unobtainable: No Constitutional: Reports: no symptoms HEENT: Repors: no symptoms Respiratory: Reports: no symptoms Allergies: Coded Allergies: No Known Allergies (Unverified , 08/14/19) All Systems: reviewed and negative except above Objective Last 24 Hour Vital Signs Date Time Temp Pulse Resp B/P (MAP) Pulse Ox O2 Delivery O2 Flow Rate FiO2 01/04/20 12:00 96.4 74 20 147/89 (108) 98 01/04/20 09:00 Room Air 01/04/20 08:00 96.3 83 20 137/75 (95) 97 01/04/20 05:16 70 120/72 01/04/20 05:16 120/72 01/04/20 04:00 97.9 70 20 120/72 (88) 98 01/04/20 00:00 97.6 74 21 125/65 (85) 99 01/03/20 21:01 68 133/67 01/03/20 21:00 Room Air 01/03/20 20:00 96.6 68 20 133/67 (89) 97 01/03/20 16:00 97.5 76 22 135/64 (87) 97 01/03/20 13:58 66 127/70 01/03/20 13:58 127/70 Intake and Output 01/03/20 01/04/20 19:00 07:00 Intake Total 650 ml 1000 ml Balance 650 ml 1000 ml Intake Oral 650 ml 1000 ml # Voids 3 General Appearance: cachetic - male in NAD HEENT: normocephalic, atraumatic Respiratory: chest wall non-tender, decreased breath sounds, other - isolated rhonchi Cardiovascular: normal peripheral pulses, normal rate Abdomen: normal bowel sounds, soft, non tender Extremities: no edema, pedal pulses normal Skin: no rash 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, alert, oriented x 3, responsive Musculoskeletal: normal muscle bulk Laboratory Tests 01/04/20 05:20: Rapid Plasma Reagin [Pending], Hepatitis A IgM Antibody [Pending], Hepatitis B Surface Antigen [Pending], Hepatitis B Core IgM Antibody [Pending], Hepatitis C Antibody [Pending], HIV-1 RNA (PCR) log10 Value [Pending], HIV-1 RNA Ultraquantitative (PCR) [Pending] Current Medications Medications (Trade) Dose Ordered Sig/[place]ila Route PRN Reason Start Time Stop Time Status Last Admin Dose Admin Acetaminophen/ Hydrocodone Bitart ([place] 10/325) 1 tab Q4H PRN ORAL For Pain 01/02/20 18:05 01/06/20 18:04 01/03/20 22:32 Albuterol/ Ipratropium (Combivent Respimat) 1 puff Q4H PRN INH dyspnea 01/02/20 18:30 01/07/20 02:29 Aspirin (Ecotrin) 81 mg DAILY ORAL 01/03/20 09:00 02/16/20 08:59 01/04/20 09:08 Clonidine HCl (Catapres Tab) 0.1 mg EVERY 8 HOURS ORAL 01/02/20 22:00 03/31/20 13:59 01/03/20 13:58 Clonidine HCl (Catapres Tab) 0.1 mg Q4H PRN ORAL bp over 165 syst 01/02/20 18:02 03/30/20 18:01 Dextrose (Dextrose 50%) 25 ml Q30M PRN IV Hypoglycemia 01/02/20 18:00 03/29/20 12:59 Dextrose (Dextrose 50%) 50 ml Q30M PRN IV Hypoglycemia 01/02/20 18:00 03/29/20 12:59 Diltiazem HCl (Cardizem) 60 mg EVERY 8 HOURS ORAL 01/02/20 22:00 01/31/20 21:59 01/04/20 05:16 Docusate Sodium (Colace) 100 mg THREE TIMES A DAY ORAL 01/02/20 18:00 01/30/20 08:59 01/04/20 09:07 Folic Acid (Folate) 2 mg DAILY ORAL 01/03/20 09:00 01/31/20 08:59 01/04/20 09:07 Furosemide (Lasix) 20 mg DAILY IV 01/03/20 09:00 01/31/20 08:59 01/03/20 09:25 Heparin Sodium (Porcine) (Heparin 5000 units/ml) 5,000 units EVERY 12 HOURS SUBQ 01/02/20 21:00 02/13/20 20:59 01/02/20 21:19 Lorazepam (Ativan 2mg/ml 1ml) 0.5 mg Q4H PRN IV For Anxiety 01/02/20 18:05 01/06/20 18:04 Memantine (Namenda) 5 mg DAILY ORAL 01/03/20 09:00 01/31/20 08:59 01/04/20 09:08 Methylprednisolone Sodium Succinate (Solu-MEDROL) 60 mg DAILY IV 01/04/20 09:00 03/29/20 17:59 01/04/20 09:07 Nitroglycerin (Ntg) 0.4 mg Q5M X 3 DOSES PRN SL Prn Chest Pain 01/02/20 18:00 01/29/20 12:59 Ondansetron HCl (Zofran) 4 mg Q6H PRN IVP Nausea & Vomiting 01/02/20 18:06 01/29/20 18:05 Pantoprazole (Protonix) 40 mg EVERY 12 HOURS ORAL 01/02/20 21:00 01/29/20 20:59 01/03/20 20:47 Potassium Chloride (K-Dur) 40 meq BID ORAL 01/02/20 18:00 03/30/20 09:59 01/04/20 09:08 Promethazine HCl/ Codeine (Phenergan with Codeine) 5 ml Q6H PRN ORAL cough 01/02/20 18:06 01/29/20 18:05 Temazepam (Restoril) 15 mg HSPRN PRN ORAL Insomnia 01/03/20 13:00 01/06/20 12:59 Theophylline (Rigoberto-Dur) 100 mg EVERY 12 HOURS ORAL 01/02/20 21:00 03/29/20 20:59 01/04/20 09:07 Assessment/Plan Problems: (1) Acute exacerbation of chronic obstructive airways disease (2) Acute bronchitis (3) Pulmonary nodule (4) Emphysema (5) Chronic back pain (6) History of CVA (cerebrovascular accident) (7) History of cocaine abuse (8) Tobacco dependence Assessment/Plan c/o insomnia respiratory treatment iv steroids, taper slowly, QD now check sputum, Klebsiella in sputum titrate fio2 to sat of 92% diuretics prn, Lasix qd, watch electrolytes cardiology evaluation dvt prophylaxis. Farhan Ortega MD Jan 04, 2020 13:23
--- NOTE | 2020-01-04 14:06 | NUR ---
DISCHARGE PLANNING MET WITH PATIENT AT BEDSIDE IN RE TO ORDER FOR SNF PLACEMENT BY DR WARD. LOUISE BYERS ACCOMPANIED CM. PATIENT A&O X4. REFUSED SNF PLACEMENT AT THIS TIME. DR WARD INFORMED.
--- NOTE | 2020-01-04 15:30 | Progress Note ---
DATE: 01/04/2020 SUBJECTIVE: This is a 79-year-old male patient with hypoxia. He is very confused and disorganized. He has some altered mental status, confusion, and disorganized thought process. He has got some decline below his baseline. He has got feelings of helplessness, hopelessness, low energy, poor appetite, and loss of interest in activity. That is why, he does require inpatient treatment at this time. MENTAL STATUS EXAMINATION: This is a 79-year-old male. Appearance is disheveled. Attitude, irritable and agitated. Affect, guarded and restricted. Intellect, poor. Mood, depressed and anxious. Motor activity, psychomotor agitation. Attention span is poor. Orientation x2. Speech is low volume, slurred. Thought process, disorganized and illogical. Insight and judgment is poor. DIAGNOSIS: Major depressive disorder, mild, recurrent with psychotic features, rule out dementia with psychosis. PLAN: Plan for this patient is to treat him with medications to stabilize his mood. Twenty minutes of reality-based supportive psychotherapy provided. I encouraged to interact appropriately with staff and other patients. Chart reviewed. Discussed with staff. Seen and assessed at bedside. Misha Bird M.D. : TRANG JOB#: [id number] CC:
[2020-01-04 16:00] VITALS: BP 152/85
--- NOTE | 2020-01-04 16:58 | Cardiology Progress Note ---
Assessment/Plan Assessment/Plan Dyspnea, likely due to COPD exacerbation Pulmonary hypertension Chest pain - ruling out for OK. L sided pain following mechanical fall is likely musculoskeletal. Tobacco use Alcohol abuse htn hs of subtance abuse Objective Last 24 Hour Vital Signs Date Time Temp Pulse Resp B/P (MAP) Pulse Ox O2 Delivery O2 Flow Rate FiO2 01/04/20 16:00 97.4 81 20 152/85 (107) 95 01/04/20 13:59 74 147/89 01/04/20 13:59 147/89 01/04/20 12:00 96.4 74 20 147/89 (108) 98 01/04/20 09:00 Room Air 01/04/20 08:00 96.3 83 20 137/75 (95) 97 01/04/20 05:16 70 120/72 01/04/20 05:16 120/72 01/04/20 04:00 97.9 70 20 120/72 (88) 98 01/04/20 00:00 97.6 74 21 125/65 (85) 99 01/03/20 21:01 68 133/67 01/03/20 21:00 Room Air 01/03/20 20:00 96.6 68 20 133/67 (89) 97 Intake and Output 01/03/20 01/04/20 19:00 07:00 Intake Total 650 ml 1000 ml Balance 650 ml 1000 ml Intake Oral 650 ml 1000 ml # Voids 3 Laboratory Tests Test 01/04/20 05:20 Rapid Plasma Reagin Pending Hepatitis A IgM Antibody Pending Hepatitis B Surface Antigen Pending Hepatitis B Core IgM Antibody Pending Hepatitis C Antibody Pending HIV-1 RNA (PCR) log10 Value Pending HIV-1 RNA Ultraquantitative (PCR) Pending Taqueria Covarrubias MD Jan 04, 2020 16:58
--- NOTE | 2020-01-04 19:34 | NUR ---
HAND-OFF: Report given to NICKOLAS Carpio.
[2020-01-04 20:00] VITALS: BP 147/87
--- NOTE | 2020-01-04 20:06 | NUR ---
NURSE NOTES: Received patient in bed, awake, alert, oriented x4, ambulates with steady gate, IV site is clean dry and intact, call light is within reach, bed is lowered, locked, alarm is on, will continue to monitor for comfort and safety.
[2020-01-05 04:12] VITALS: BP 138/79
[2020-01-05] MEDS: dilTIAZem HCl 60mg tab ORAL SCH ×4 (05:21→21:47)
--- NOTE | 2020-01-05 07:13 | NUR ---
HAND-OFF: Report given to Shoshana OLMOS.
--- NOTE | 2020-01-05 07:54 | NUR ---
NURSE NOTES: received report from NICKOLAS Carpio. patient in bed, A&Ox4, verbally responsive, no respiratory distress noted. no pain at this time. contact/droplet isolation for PUI COVID. CM consult for placement. IV on LFA 22g saline lock. intact. bed in the lowest position and locked. call light within reach. will continue to provide plan of care.
[2020-01-05 08:00] VITALS: BP 132/80
[2020-01-05 08:33] LABS: BASOPHILS % (AUTO) 1.6 % (0.0-2.0); EOSINOPHILS % (AUTO) 0.1 % (0.0-3.0); HEMATOCRIT 36.9 % (42.0-52.0); HEMOGLOBIN 11.5 G/DL (14.2-18.0); LYMPHOCYTES % (AUTO) 17.2 % (20.0-45.0); MEAN CORPUSCULAR VOLUME 106 FL (80-99); MONOCYTES % (AUTO) 11.2 % (1.0-10.0); PLATELET COUNT 162 K/UL (150-450); RED CELL DISTRIBUTION WIDTH 16.4 % (11.6-14.8); WHITE BLOOD COUNT 6.7 K/UL (4.8-10.8)
[2020-01-05] MEDS: Memantine 5 MG TAB ORAL SCH (08:55)
[2020-01-05] MEDS: Aspirin EC 81mg tab ORAL SCH (08:55)
[2020-01-05] MEDS: Theophylline ER 100mg ORAL SCH ×2 (08:55→21:47)
[2020-01-05] MEDS: Docusate 100mg cap ORAL SCH ×3 (08:55→17:15)
[2020-01-05] MEDS: Solu-MEDROL 125mg Inj IV SCH (08:56)
[2020-01-05] MEDS: Heparin 5000 units/ml inj SUBQ SCH ×2 (08:57→21:54)
[2020-01-05 09:00] LABS: ANION GAP 7 mmol/L (5-15); BLOOD UREA NITROGEN 24 mg/dL (7-18); CALCIUM 8.2 MG/DL (8.5-10.1); CARBON DIOXIDE 31 MMOL/L (21-32); CHLORIDE 102 MMOL/L (98-107); CREATININE 0.9 MG/DL (0.55-1.30); POTASSIUM 4.3 MMOL/L (3.5-5.1); SODIUM 140 MMOL/L (136-145)
--- NOTE | 2020-01-05 09:13 | General Progress Note ---
Assessment/Plan Problem List: (1) COPD (chronic obstructive pulmonary disease) ICD Codes: J44.9 - Chronic obstructive pulmonary disease, unspecified SNOMED: 20044359 Qualifiers: Qualified Codes: J44.9 - Chronic obstructive pulmonary disease, unspecified (2) Elevated lactic acid level ICD Codes: R79.89 - Other specified abnormal findings of blood chemistry SNOMED: 3968757 (3) Hypokalemia ICD Codes: E87.6 - Hypokalemia SNOMED: 63651051, 275216000 (4) Hypoxia ICD Codes: R09.02 - Hypoxemia SNOMED: 227537991 (5) Acute exacerbation of chronic obstructive airways disease ICD Codes: J44.1 - Acute exacerbation of chronic obstructive airways disease SNOMED: 903305997 (6) Chronic back pain ICD Codes: G89.29 - Other chronic pain; M54.9 - Chronic back pain SNOMED: 478478513 (7) History of CVA (cerebrovascular accident) ICD Codes: Z86.73 - History of stroke SNOMED: 866488618 (8) ACS (acute coronary syndrome) ICD Codes: I20.0 - Unstable angina SNOMED: 912302158 Status: stable, progressing Assessment/Plan: o2 pulm tx abx pain control pt diet cbc bmp am dc plan snf Subjective Constitutional: Reports: weakness Allergies: Coded Allergies: No Known Allergies (Unverified , 08/14/19) All Systems: reviewed and negative except above Subjective sleepy calm Objective Last 24 Hour Vital Signs Date Time Temp Pulse Resp B/P (MAP) Pulse Ox O2 Delivery O2 Flow Rate FiO2 01/05/20 08:00 97.3 80 20 132/80 (97) 99 01/05/20 05:22 147/79 01/05/20 05:21 78 147/79 01/05/20 04:12 97.2 76 20 138/79 (98) 98 01/04/20 21:32 78 147/74 01/04/20 21:32 147/74 01/04/20 21:12 Room Air 01/04/20 20:00 98.3 71 20 147/87 (107) 98 01/04/20 16:00 97.4 81 20 152/85 (107) 95 01/04/20 13:59 74 147/89 01/04/20 13:59 147/89 01/04/20 12:00 96.4 74 20 147/89 (108) 98 Intake and Output 01/04/20 01/05/20 19:00 07:00 Intake Total 1080 ml Balance 1080 ml Intake Oral 1080 ml # Voids 5 Laboratory Tests 01/05/20 08:25: White Blood Count 6.7, Red Blood Count 3.50L, Hemoglobin 11.5L, Hematocrit 36.9L , Mean Corpuscular Volume 106H, Mean Corpuscular Hemoglobin 32.9H, Mean Corpuscular Hemoglobin Concent 31.2L, Red Cell Distribution Width 16.4H, Platelet Count 162, Mean Platelet Volume 6.5, Neutrophils (%) (Auto) 70.0, Lymphocytes (%) (Auto) 17.2L, Monocytes (%) (Auto) 11.2H, Eosinophils (%) (Auto ) 0.1, Basophils (%) (Auto) 1.6, Sodium Level 140, Potassium Level 4.3, Chloride Level 102, Carbon Dioxide Level 31, Anion Gap 7, Blood Urea Nitrogen 24H, Creatinine 0.9, Estimat Glomerular Filtration Rate > 60, Glucose Level 94, Calcium Level 8.2L, HIV (1&2) Antibody Rapid [Pending] Height (Feet): 6 Height (Inches): 2.00 Weight (Pounds): 170 General Appearance: lethargic EENT: normal ENT inspection Neck: normal alignment Cardiovascular: normal rate, regular rhythm Respiratory/Chest: no respiratory distress, no accessory muscle use Extremities: normal inspection Skin: normal pigmentation Fred Kay DO Jan 05, 2020 09:13
--- NOTE | 2020-01-05 09:30 | NUR ---
NURSE NOTES: verified order of excision nail and matrix with . MD will verify the order with /podiatric.
--- NOTE | 2020-01-05 10:34 | NUR ---
RESISTOR WINDER NOTE SW spoke w/ Ameliasi from [facility] [phone] #7 that there is no bed available in [facility] 4 area.
[2020-01-05 12:00] VITALS: BP 130/75
--- NOTE | 2020-01-05 12:28 | Nephrology Progress Note ---
Assessment/Plan Problem List: (1) Electrolyte imbalance (2) Hypokalemia (3) Acute exacerbation of chronic obstructive airways disease (4) History of cocaine abuse (5) HTN (hypertension) Assessment This 79-year-old male is admitted with hypoxia, and leg swelling Renal impression: Hypokalemia, unclear etiology. No definite history of diarrhea given by the patient. No diuretic on the list of medications. Hypomagnesemia. Other conditions: Exacerbation of COPD, acute bronchitis, suspected COVID-19 infection Elevated lactate acid Patient is chronic smoker History of cocaine and marijuana abuse Hypertension Chronic back pain History of CVA Anemia Homelessness . Plan Remains stable from renal standpoint of view Potassium supplement as needed Start clonidine for blood pressure with parameters. Check chemistry panel as needed Continue per pulmonary management, pulmonary toilet, steroids, aim to taper as possible, per pulmonary Potassium and magnesium supplement as needed. Monitor renal parameters and electrolytes. Keep the blood pressure and blood sugar in check. Per orders. Subjective ROS Limited/Unobtainable: No Constitutional: Reports: malaise, weakness Objective Objective Last 24 Hour Vital Signs Date Time Temp Pulse Resp B/P (MAP) Pulse Ox O2 Delivery O2 Flow Rate FiO2 01/05/20 12:00 97.7 86 21 130/75 (93) 95 01/05/20 09:00 Room Air 01/05/20 08:00 97.3 80 20 132/80 (97) 99 01/05/20 05:22 147/79 01/05/20 05:21 78 147/79 01/05/20 04:12 97.2 76 20 138/79 (98) 98 01/04/20 21:32 78 147/74 01/04/20 21:32 147/74 01/04/20 21:12 Room Air 01/04/20 20:00 98.3 71 20 147/87 (107) 98 01/04/20 16:00 97.4 81 20 152/85 (107) 95 01/04/20 13:59 74 147/89 01/04/20 13:59 147/89 Intake and Output 01/04/20 01/05/20 19:00 07:00 Intake Total 1080 ml Balance 1080 ml Intake Oral 1080 ml # Voids 5 Laboratory Tests 01/05/20 08:25: White Blood Count 6.7, Red Blood Count 3.50L, Hemoglobin 11.5L, Hematocrit 36.9L , Mean Corpuscular Volume 106H, Mean Corpuscular Hemoglobin 32.9H, Mean Corpuscular Hemoglobin Concent 31.2L, Red Cell Distribution Width 16.4H, Platelet Count 162, Mean Platelet Volume 6.5, Neutrophils (%) (Auto) 70.0, Lymphocytes (%) (Auto) 17.2L, Monocytes (%) (Auto) 11.2H, Eosinophils (%) (Auto ) 0.1, Basophils (%) (Auto) 1.6, Sodium Level 140, Potassium Level 4.3, Chloride Level 102, Carbon Dioxide Level 31, Anion Gap 7, Blood Urea Nitrogen 24H, Creatinine 0.9, Estimat Glomerular Filtration Rate > 60, Glucose Level 94, Calcium Level 8.2L, HIV (1&2) Antibody Rapid Negative Height (Feet): 6 Height (Inches): 2.00 Weight (Pounds): 170 General Appearance: no apparent distress Cardiovascular: tachycardia - Rate in 80s Respiratory/Chest: decreased breath sounds Abdomen: soft Objective No change Micky Ivy MD Jan 05, 2020 12:28
--- NOTE | 2020-01-05 12:30 | Progress Note ---
DATE: 01/05/2020 SUBJECTIVE: The patient is a 79-year-old male with hypoxia. He continued to have altered mental status and confusion. He has got some mood lability, decline in cognition, but he has got severe altered mental status secondary to medical illness. medical problems of hypoxia and respiratory insufficiency. MENTAL STATUS EXAMINATION: This is a 71-year-old male. Appearance is disheveled. Attitude, irritable and agitated. Affect, guarded and restricted. Intellect, poor. Mood, depressed and anxious. Motor activity, psychomotor agitation. Insight and judgment is poor. DIAGNOSIS: Major depressive disorder, mild, recurrent with psychotic features. PLAN: I am going to continue to treat the patient with medications to stabilize his mood. A 20 minutes of insight-oriented psychotherapy to help him recognize his physical and medical condition so that he has less anxiety and depression and better impulse control. Chart reviewed. Discussed with staff. Seen and assessed in his room. Misha Bird M.D. DR: TRANG JOB#: [id number] CC:
--- NOTE | 2020-01-05 12:50 | NUR ---
NURSE NOTES: patient got upset about not getting any treatment for COVID since hospital put him isolation. Nurse explained the patient is isolation for PUI COVID becuase he was negative on first test but refused second test. the patient started cursing nurse and showed aggressive behaviors. will continue to monitor
--- NOTE | 2020-01-05 13:39 | Pulmonology Progress Note ---
Subjective ROS Limited/Unobtainable: No Constitutional: Reports: no symptoms HEENT: Repors: no symptoms Respiratory: Reports: no symptoms Allergies: Coded Allergies: No Known Allergies (Unverified , 08/14/19) All Systems: reviewed and negative except above Objective Last 24 Hour Vital Signs Date Time Temp Pulse Resp B/P (MAP) Pulse Ox O2 Delivery O2 Flow Rate FiO2 01/05/20 12:00 97.7 86 21 130/75 (93) 95 01/05/20 09:00 Room Air 01/05/20 08:00 97.3 80 20 132/80 (97) 99 01/05/20 05:22 147/79 01/05/20 05:21 78 147/79 01/05/20 04:12 97.2 76 20 138/79 (98) 98 01/04/20 21:32 78 147/74 01/04/20 21:32 147/74 01/04/20 21:12 Room Air 01/04/20 20:00 98.3 71 20 147/87 (107) 98 01/04/20 16:00 97.4 81 20 152/85 (107) 95 01/04/20 13:59 74 147/89 01/04/20 13:59 147/89 Intake and Output 01/04/20 01/05/20 19:00 07:00 Intake Total 1080 ml Balance 1080 ml Intake Oral 1080 ml # Voids 5 General Appearance: cachetic - male in NAD HEENT: normocephalic, atraumatic Respiratory: chest wall non-tender, decreased breath sounds, other - isolated rhonchi Cardiovascular: normal peripheral pulses, normal rate Abdomen: normal bowel sounds, soft, non tender Extremities: no edema, pedal pulses normal Skin: no rash Neurologic: director toxicology II-XII grossly normal, alert, oriented x 3, responsive Musculoskeletal: normal muscle bulk Laboratory Tests 01/05/20 08:25: White Blood Count 6.7, Red Blood Count 3.50L, Hemoglobin 11.5L, Hematocrit 36.9L , Mean Corpuscular Volume 106H, Mean Corpuscular Hemoglobin 32.9H, Mean Corpuscular Hemoglobin Concent 31.2L, Red Cell Distribution Width 16.4H, Platelet Count 162, Mean Platelet Volume 6.5, Neutrophils (%) (Auto) 70.0, Lymphocytes (%) (Auto) 17.2L, Monocytes (%) (Auto) 11.2H, Eosinophils (%) (Auto ) 0.1, Basophils (%) (Auto) 1.6, Sodium Level 140, Potassium Level 4.3, Chloride Level 102, Carbon Dioxide Level 31, Anion Gap 7, Blood Urea Nitrogen 24H, Creatinine 0.9, Estimat Glomerular Filtration Rate > 60, Glucose Level 94, Calcium Level 8.2L, HIV (1&2) Antibody Rapid Negative Current Medications Medications (Trade) Dose Ordered Sig/Aguila Route PRN Reason Start Time Stop Time Status Last Admin Dose Admin Acetaminophen/ Hydrocodone Bitart ([place] 10/325) 1 tab Q4H PRN ORAL For Pain 01/02/20 18:05 01/06/20 18:04 01/03/20 22:32 Albuterol/ Ipratropium (Combivent Respimat) 1 puff Q4H PRN INH dyspnea 01/02/20 18:30 01/07/20 02:29 Aspirin (Ecotrin) 81 mg DAILY ORAL 01/03/20 09:00 02/16/20 08:59 01/05/20 08:55 Clonidine HCl (Catapres Tab) 0.1 mg EVERY 8 HOURS ORAL 01/02/20 22:00 03/31/20 13:59 01/05/20 05:22 Clonidine HCl (Catapres Tab) 0.1 mg Q4H PRN ORAL bp over 165 syst 01/02/20 18:02 03/30/20 18:01 Dextrose (Dextrose 50%) 25 ml Q30M PRN IV Hypoglycemia 01/02/20 18:00 03/29/20 12:59 Dextrose (Dextrose 50%) 50 ml Q30M PRN IV Hypoglycemia 01/02/20 18:00 03/29/20 12:59 Diltiazem HCl (Cardizem) 60 mg EVERY 8 HOURS ORAL 01/02/20 22:00 01/31/20 21:59 01/05/20 05:21 Docusate Sodium (Colace) 100 mg THREE TIMES A DAY ORAL 01/02/20 18:00 01/30/20 08:59 01/05/20 08:55 Folic Acid (Folate) 2 mg DAILY ORAL 01/03/20 09:00 01/31/20 08:59 01/05/20 08:55 Furosemide (Lasix) 20 mg DAILY IV 01/03/20 09:00 01/31/20 08:59 01/03/20 09:25 Heparin Sodium (Porcine) (Heparin 5000 units/ml) 5,000 units EVERY 12 HOURS SUBQ 01/02/20 21:00 02/13/20 20:59 01/05/20 08:57 Lorazepam (Ativan 2mg/ml 1ml) 0.5 mg Q4H PRN IV For Anxiety 01/02/20 18:05 01/06/20 18:04 Memantine (Namenda) 5 mg DAILY ORAL 01/03/20 09:00 01/31/20 08:59 01/05/20 08:55 Methylprednisolone Sodium Succinate (Solu-MEDROL) 60 mg DAILY IV 01/04/20 09:00 03/29/20 17:59 01/05/20 08:56 Mirtazapine (Remeron) 7.5 mg BEDTIME ORAL 01/04/20 21:00 04/03/20 20:59 01/04/20 21:00 Nitroglycerin (Ntg) 0.4 mg Q5M X 3 DOSES PRN SL Prn Chest Pain 01/02/20 18:00 01/29/20 12:59 Ondansetron HCl (Zofran) 4 mg Q6H PRN IVP Nausea & Vomiting 01/02/20 18:06 01/29/20 18:05 Pantoprazole (Protonix) 40 mg EVERY 12 HOURS ORAL 01/02/20 21:00 01/29/20 20:59 01/03/20 20:47 Potassium Chloride (K-Dur) 40 meq BID ORAL 01/02/20 18:00 03/30/20 09:59 01/05/20 08:55 Promethazine HCl/ Codeine (Phenergan with Codeine) 5 ml Q6H PRN ORAL cough 01/02/20 18:06 01/29/20 18:05 Temazepam (Restoril) 30 mg HSPRN PRN ORAL Insomnia 01/04/20 13:30 01/06/20 12:59 Theophylline (Rigoberto-Dur) 100 mg EVERY 12 HOURS ORAL 01/02/20 21:00 03/29/20 20:59 01/05/20 08:55 Assessment/Plan Problems: (1) Acute exacerbation of chronic obstructive airways disease (2) Acute bronchitis (3) Pulmonary nodule (4) Emphysema (5) Chronic back pain (6) History of CVA (cerebrovascular accident) (7) History of cocaine abuse (8) Tobacco dependence Assessment/Plan doing better respiratory treatment iv steroids, taper slowly, QD now check sputum, Klebsiella in sputum titrate fio2 to sat of 92% diuretics prn, Lasix qd, watch electrolytes cardiology evaluation dvt prophylaxis. Farhan Ortega MD Jan 05, 2020 13:39
--- NOTE | 2020-01-05 14:06 | NUR ---
NURSE NOTES:WOUND CARE NOTES:Pt presented on admission with resolving sacrococcygeal DTPI(L)3.5cm x (W)1.2cm. Small dry eschar noted at center with surrounding maroon discoloration,bordered by hyperpigmentation.Pt complained of pain when minimally palpated,and stated sacrum is also painful when he lays semi-yañez. Haemosiderin with Xerosis skin both lower ext and feet. Both heels are boggy with non-blanching erythema.Pt denied pain when each heel individually palpated. Both lower ext washed and gently scrubbed to remove dry patches of Skin. Phytoplex Skin Nourishing Lotion applied to both lower ext and feet. Pt instructed to apply same technique at home to keep skin moisturized. Pt was educated on wound prevention. Encouraged to frequently,or at least hourly to reposition self in bed. Tx.plan: Apply Moisture Barrier Paste to Sacrum.Cover with Optifoam drsg. Change every 3 days and prn. Moisturize both lower ext with Phytoplex Skin Nourishing Lotion Daily and prn. Apply Cavilon Skin Barrier to both heels. Cover each heel with Optifoam drsg. Changee very 7 days and prn. Elevate lower ext with Heels off-loaded while in bed. Reposition at least every 2hours or as tolerated.
--- NOTE | 2020-01-05 14:06 | NUR ---
CASE MANAGEMENT:REVIEW SI;COPD W/ACUTE EXACERBATION. AC CORONARY SYNDROME. 97.7 86 21 147/79 95% ON RA BUN 24 IS; SOLU-MEDROL IV ASA PO LASIX IV CARDIZEM PO HEPARIN SUBQ TYREE-DUR PO PHENERGAN W/CODEINE PO PRN K-DUR PO BID MED SURG STATUS DCP;PATIENT IS HOMELESS
--- NOTE | 2020-01-05 15:07 | NUR ---
NURSE NOTES: patient refused taking colace 100mg po for constipation and cardizem 60mg PO for HTN. patient said he had BM this morning. he does not want to take both clonidine 0.1mg and cardizem for now. Nurse explained risks and benefits. will continue to monitor patient condition.
--- NOTE | 2020-01-05 15:13 | NUR ---
NURSE NOTES: Nurse accidentally dropped medications on the floor. discarded medications per protocol. pulled out new medications from pyxis. verified with NICKOLAS Martínez
[2020-01-05 16:00] VITALS: BP 136/80
--- NOTE | 2020-01-05 17:15 | NUR ---
NURSE NOTES: Patient refused taking Colace 100mg PO for stool softner d/t he had BM today.
--- NOTE | 2020-01-05 17:15 | Infectious Diseases Prog Note ---
Assessment/Plan Assessment/Plan Assessment: Viral syndrome- -12/29 SARS-COV2 pCR neg -Bcx Neg -HIV ab screen, acute hep panel, RPR neg COPD exacerbation Mild hypoxia upon admission- now resolved- at -01/01 CXR: Mild linear atelectasis versus scarring in the right lung base, not significantly changed. The lungs otherwise appear clear -12/29 CXR: Basilar atelectasis and scarring. No acute disease. -sp cx K. pna (R amp; otherwise S) Afebrile No leukocytosis Thrombocytopenia/Lymphopenia Lactic acidosis;SP -u/a neg -Bcx NTD COPD homelessness (lives in his car) HTN OA DJD HLD chronic back pain CVA smoker cocaine and THC use Plan: -Continue to monitor off abx -01/03 SP Azithromycin #5 -01/02 SP Ceftriaxone #4 -12/30 SP ZOsyn #2 -f/u cx -Monitor CBC/CMP, temperatures -COVID19 isolation and testing; [id number] test- will dc isolation as has remained afebrile, at and alternative diagnosis (bacterial bronchitis) -f/u HIV VL, RPR Thank you for this consultation. Will continue to follow along with you. Discussed with RN. Subjective Allergies: Coded Allergies: No Known Allergies (Unverified , 08/14/19) Subjective afebrile at no leukocytosis pt refused 2nd covid test Objective Vital Signs Last 24 Hour Vital Signs Date Time Temp Pulse Resp B/P (MAP) Pulse Ox O2 Delivery O2 Flow Rate FiO2 01/05/20 16:00 98.0 91 22 136/80 (98) 97 01/05/20 15:02 154/88 01/05/20 14:00 79 154/88 01/05/20 12:00 97.7 86 21 130/75 (93) 95 01/05/20 09:00 Room Air 01/05/20 08:00 97.3 80 20 132/80 (97) 99 01/05/20 05:22 147/79 01/05/20 05:21 78 147/79 01/05/20 04:12 97.2 76 20 138/79 (98) 98 01/04/20 21:32 78 147/74 01/04/20 21:32 147/74 01/04/20 21:12 Room Air 01/04/20 20:00 98.3 71 20 147/87 (107) 98 Height (Feet): 6 Height (Inches): 2.00 Weight (Pounds): 170 Objective not examined to limit COVID19 exposure Laboratory Tests Test 01/05/20 08:25 White Blood Count 6.7 K/UL (4.8-10.8) Red Blood Count 3.50 M/UL (4.70-6.10) L Hemoglobin 11.5 G/DL (14.2-18.0) L Hematocrit 36.9 % (42.0-52.0) L Mean Corpuscular Volume 106 FL (80-99) H Mean Corpuscular Hemoglobin 32.9 PG (27.0-31.0) H Mean Corpuscular Hemoglobin Concent 31.2 G/DL (32.0-36.0) L Red Cell Distribution Width 16.4 % (11.6-14.8) H Platelet Count 162 K/UL (150-450) Mean Platelet Volume 6.5 FL (6.5-10.1) Neutrophils (%) (Auto) 70.0 % (45.0-75.0) Lymphocytes (%) (Auto) 17.2 % (20.0-45.0) L Monocytes (%) (Auto) 11.2 % (1.0-10.0) H Eosinophils (%) (Auto) 0.1 % (0.0-3.0) Basophils (%) (Auto) 1.6 % (0.0-2.0) Sodium Level 140 MMOL/L (136-145) Potassium Level 4.3 MMOL/L (3.5-5.1) Chloride Level 102 MMOL/L (98-107) Carbon Dioxide Level 31 MMOL/L (21-32) Anion Gap 7 mmol/L (5-15) Blood Urea Nitrogen 24 mg/dL (7-18) H Creatinine 0.9 MG/DL (0.55-1.30) Estimat Glomerular Filtration Rate > 60 mL/min (>60) Glucose Level 94 MG/DL (74-106) Calcium Level 8.2 MG/DL (8.5-10.1) L HIV (1&2) Antibody Rapid Negative (NEGATIVE) Current Medications Medications (Trade) Dose Ordered Sig/[place]ila Route PRN Reason Start Time Stop Time Status Last Admin Dose Admin Acetaminophen/ Hydrocodone Bitart ([place] 10/325) 1 tab Q4H PRN ORAL For Pain 01/02/20 18:05 01/06/20 18:04 01/03/20 22:32 Albuterol/ Ipratropium (Combivent Respimat) 1 puff Q4H PRN INH dyspnea 01/02/20 18:30 01/07/20 02:29 Aspirin (Ecotrin) 81 mg DAILY ORAL 01/03/20 09:00 02/16/20 08:59 01/05/20 08:55 Clonidine HCl (Catapres Tab) 0.1 mg EVERY 8 HOURS ORAL 01/02/20 22:00 03/31/20 13:59 01/05/20 15:02 Clonidine HCl (Catapres Tab) 0.1 mg Q4H PRN ORAL bp over 165 syst 01/02/20 18:02 03/30/20 18:01 Dextrose (Dextrose 50%) 25 ml Q30M PRN IV Hypoglycemia 01/02/20 18:00 03/29/20 12:59 Dextrose (Dextrose 50%) 50 ml Q30M PRN IV Hypoglycemia 01/02/20 18:00 03/29/20 12:59 Diltiazem HCl (Cardizem) 60 mg EVERY 8 HOURS ORAL 01/02/20 22:00 01/31/20 21:59 01/05/20 05:21 Docusate Sodium (Colace) 100 mg THREE TIMES A DAY ORAL 01/02/20 18:00 01/30/20 08:59 01/05/20 08:55 Folic Acid (Folate) 2 mg DAILY ORAL 01/03/20 09:00 01/31/20 08:59 01/05/20 08:55 Furosemide (Lasix) 20 mg DAILY IV 01/03/20 09:00 01/31/20 08:59 01/03/20 09:25 Heparin Sodium (Porcine) (Heparin 5000 units/ml) 5,000 units EVERY 12 HOURS SUBQ 01/02/20 21:00 02/13/20 20:59 01/05/20 08:57 Lorazepam (Ativan 2mg/ml 1ml) 0.5 mg Q4H PRN IV For Anxiety 01/02/20 18:05 01/06/20 18:04 Memantine (Namenda) 5 mg DAILY ORAL 01/03/20 09:00 01/31/20 08:59 01/05/20 08:55 Methylprednisolone Sodium Succinate (Solu-MEDROL) 60 mg DAILY IV 01/04/20 09:00 03/29/20 17:59 01/05/20 08:56 Mirtazapine (Remeron) 7.5 mg BEDTIME ORAL 01/04/20 21:00 04/03/20 20:59 01/04/20 21:00 Nitroglycerin (Ntg) 0.4 mg Q5M X 3 DOSES PRN SL Prn Chest Pain 01/02/20 18:00 01/29/20 12:59 Ondansetron HCl (Zofran) 4 mg Q6H PRN IVP Nausea & Vomiting 01/02/20 18:06 01/29/20 18:05 Pantoprazole (Protonix) 40 mg EVERY 12 HOURS ORAL 01/02/20 21:00 01/29/20 20:59 01/03/20 20:47 Potassium Chloride (K-Dur) 40 meq BID ORAL 01/02/20 18:00 03/30/20 09:59 01/05/20 08:55 Promethazine HCl/ Codeine (Phenergan with Codeine) 5 ml Q6H PRN ORAL cough 01/02/20 18:06 01/29/20 18:05 Temazepam (Restoril) 30 mg HSPRN PRN ORAL Insomnia 01/04/20 13:30 01/06/20 12:59 Theophylline (Rigoberto-Dur) 100 mg EVERY 12 HOURS ORAL 01/02/20 21:00 03/29/20 20:59 01/05/20 08:55 Isabel Schultz M.D. Jan 05, 2020 17:15
--- NOTE | 2020-01-05 19:20 | NUR ---
HAND-OFF: Report given to NICKOLAS Junior.
--- NOTE | 2020-01-05 19:30 | NUR ---
NURSE NOTES: Received patient awake sitting on bed, asking for more snacks. On room air. Call light in reach. Instructed to use call light for assistance. Will continue to monitor.
[2020-01-05 20:00] VITALS: BP 159/79
--- NOTE | 2020-01-05 20:00 | NUR ---
NURSE NOTES: Instructed patient to call RN if the stool or urine specimen is available. Patient verbalized understanding. Hat collected placed in the toilet and Patient was provided with new urinal.
--- NOTE | 2020-01-05 21:30 | NUR ---
NURSE NOTES: Reminded patient about urine and stool specimen collection since he was seen in the bathroom. Patient got mad and refused to provide any. Charge nurse made aware.
[2020-01-06] VITALS (7 sets, daily range): BP systolic 132–158; BP diastolic 71–84
--- NOTE | 2020-01-06 01:45 | NUR ---
NURSE NOTES: Patient complained about his urine and asking for medicine. Per patient he use take Flomax double dose. Dr. Kay made aware.
[2020-01-06] MEDS: dilTIAZem HCl 60mg tab ORAL SCH ×3 (05:40→21:09)
--- NOTE | 2020-01-06 07:35 | NUR ---
HAND-OFF: Report given to Jonathan Celestin RN.
--- NOTE | 2020-01-06 08:26 | NUR ---
NURSE NOTES: Abraham was with patient attempted to perform a bilateral lower extremity test. Patient stated, "I won't get naked for anyone. She's trying to get me naked. You want to see a naked man. Now way." Patient refused venous/duplex scan.
[2020-01-06] MEDS: Solu-MEDROL 125mg Inj IV SCH (08:28)
[2020-01-06] MEDS: Aspirin EC 81mg tab ORAL SCH (08:29)
[2020-01-06] MEDS: Memantine 5 MG TAB ORAL SCH (08:29)
[2020-01-06] MEDS: Theophylline ER 100mg ORAL SCH ×2 (08:30→21:09)
[2020-01-06] MEDS: Heparin 5000 units/ml inj SUBQ SCH ×2 (08:32→21:12)
--- NOTE | 2020-01-06 08:49 | NUR ---
NURSE NOTES: Patient refusing to provide stool sample. He did indicate that he would provide a urine sample.
[2020-01-06] MEDS: Docusate 100mg cap ORAL SCH ×3 (09:00→17:49)
--- NOTE | 2020-01-06 09:59 | NUR ---
HISTORY DEPARTMENT CHAIR NOTE SW spoke w/ Shelia from [facility] [phone] #7 that there is no bed available in any [facility].
--- NOTE | 2020-01-06 10:14 | Nephrology Progress Note ---
Assessment/Plan Problem List: (1) Electrolyte imbalance (2) Hypokalemia (3) Acute exacerbation of chronic obstructive airways disease (4) History of cocaine abuse (5) HTN (hypertension) Assessment This 79-year-old male is admitted with hypoxia, and leg swelling Renal impression: Hypokalemia, unclear etiology. No definite history of diarrhea given by the patient. No diuretic on the list of medications. Hypomagnesemia. Other conditions: Exacerbation of COPD, acute bronchitis, suspected COVID-19 infection Elevated lactate acid Patient is chronic smoker History of cocaine and marijuana abuse Hypertension Chronic back pain History of CVA Anemia Homelessness . Plan Remains stable from renal standpoint of view Potassium supplement as needed Start clonidine for blood pressure with parameters. Check chemistry panel as needed Continue per pulmonary management, pulmonary toilet, steroids, aim to taper as possible, per pulmonary Potassium and magnesium supplement as needed. Monitor renal parameters and electrolytes. Keep the blood pressure and blood sugar in check. Per orders. Subjective ROS Limited/Unobtainable: No Constitutional: Reports: malaise Objective Objective Last 24 Hour Vital Signs Date Time Temp Pulse Resp B/P (MAP) Pulse Ox O2 Delivery O2 Flow Rate FiO2 01/06/20 08:00 97.5 73 20 138/71 (93) 99 01/06/20 05:38 141/73 01/06/20 04:00 97.9 80 20 141/73 (95) 93 01/06/20 00:00 98.1 76 20 132/78 (96) 94 01/05/20 21:47 80 160/83 01/05/20 21:47 160/83 01/05/20 21:00 Room Air 01/05/20 20:00 97.3 78 18 159/79 (105) 98 01/05/20 16:00 98.0 91 22 136/80 (98) 97 01/05/20 15:02 154/88 01/05/20 14:00 79 154/88 01/05/20 12:00 97.7 86 21 130/75 (93) 95 Intake and Output 01/05/20 01/06/20 19:00 07:00 Intake Total 1200 ml 400 ml Balance 1200 ml 400 ml Intake Oral 1200 ml Other 400 ml # Voids 8 3 # Bowel Movements 1 No labs done today Height (Feet): 6 Height (Inches): 2.00 Weight (Pounds): 170 General Appearance: no apparent distress Cardiovascular: normal rate Respiratory/Chest: decreased breath sounds Abdomen: soft Objective No change Micky Ivy MD Jan 06, 2020 10:14
--- NOTE | 2020-01-06 10:27 | Diagnostic Imaging Report ---
Procedure: XRAY Chest 1v Reason for study: Reason For Exam: SOB Comparison films: 01/02/2020. FINDINGS: A single one view chest is obtained. Vascularity is normal. The lung dodge are clear bilaterally. Cardiac and mediastinal silhouette are within normal limits. Aorta is tortuous. CP angles are sharp. The bony thorax appear unremarkable. IMPRESSION: NO ACUTE CARDIOPULMONARY DISEASE.
--- NOTE | 2020-01-06 10:55 | NUR ---
NURSE NOTES: Dr. Fred Kay requested we call Dr. Misha Bird to transfer patient to psych. I called Dr. Misha Bird and received a message that the mailbox is full.
--- NOTE | 2020-01-06 12:07 | NUR ---
DISCHARGE PLANNING ORDER TO TRANSFER PATIENT TO [facility] NOTED KEISHA INFORMED CYRIL MCKEON OF REFERRAL. PER MIKE, SHE WILL SENT THE REFERRAL ORDERED.
--- NOTE | 2020-01-06 12:17 | Pulmonology Progress Note ---
Subjective ROS Limited/Unobtainable: No Constitutional: Reports: no symptoms HEENT: Repors: no symptoms Respiratory: Reports: no symptoms Allergies: Coded Allergies: No Known Allergies (Unverified , 08/14/19) All Systems: reviewed and negative except above Objective Last 24 Hour Vital Signs Date Time Temp Pulse Resp B/P (MAP) Pulse Ox O2 Delivery O2 Flow Rate FiO2 01/06/20 09:00 Nasal Cannula 2.0 01/06/20 08:00 97.5 73 20 138/71 (93) 99 01/06/20 05:38 141/73 01/06/20 04:00 97.9 80 20 141/73 (95) 93 01/06/20 00:00 98.1 76 20 132/78 (96) 94 01/05/20 21:47 80 160/83 01/05/20 21:47 160/83 01/05/20 21:00 Room Air 01/05/20 20:00 97.3 78 18 159/79 (105) 98 01/05/20 16:00 98.0 91 22 136/80 (98) 97 01/05/20 15:02 154/88 01/05/20 14:00 79 154/88 Intake and Output 01/05/20 01/06/20 19:00 07:00 Intake Total 1200 ml 400 ml Balance 1200 ml 400 ml Intake Oral 1200 ml Other 400 ml # Voids 8 3 # Bowel Movements 1 General Appearance: cachetic - male in NAD HEENT: normocephalic, atraumatic Respiratory: chest wall non-tender, decreased breath sounds, other - isolated rhonchi Cardiovascular: normal peripheral pulses, normal rate Abdomen: normal bowel sounds, soft, non tender Extremities: no edema, pedal pulses normal Skin: no rash Neurologic: digital account director II-XII grossly normal, alert, oriented x 3, responsive Musculoskeletal: normal muscle bulk Current Medications Medications (Trade) Dose Ordered Sig/Aguila Route PRN Reason Start Time Stop Time Status Last Admin Dose Admin Acetaminophen/ Hydrocodone Bitart ([place] 10/325) 1 tab Q4H PRN ORAL For Pain 01/02/20 18:05 01/06/20 18:04 01/03/20 22:32 Albuterol/ Ipratropium (Albuterol/ Ipratropium) 3 ml Q4H PRN HHN Shortness of Breath 01/06/20 09:15 01/11/20 09:14 Aspirin (Ecotrin) 81 mg DAILY ORAL 01/03/20 09:00 02/16/20 08:59 01/06/20 08:29 Clonidine HCl (Catapres Tab) 0.1 mg EVERY 8 HOURS ORAL 01/02/20 22:00 03/31/20 13:59 01/06/20 05:38 Clonidine HCl (Catapres Tab) 0.1 mg Q4H PRN ORAL bp over 165 syst 01/02/20 18:02 03/30/20 18:01 Dextrose (Dextrose 50%) 25 ml Q30M PRN IV Hypoglycemia 01/02/20 18:00 03/29/20 12:59 Dextrose (Dextrose 50%) 50 ml Q30M PRN IV Hypoglycemia 01/02/20 18:00 03/29/20 12:59 Diltiazem HCl (Cardizem) 60 mg EVERY 8 HOURS ORAL 01/02/20 22:00 01/31/20 21:59 01/05/20 21:47 Docusate Sodium (Colace) 100 mg THREE TIMES A DAY ORAL 01/02/20 18:00 01/30/20 08:59 01/05/20 08:55 Folic Acid (Folate) 2 mg DAILY ORAL 01/03/20 09:00 01/31/20 08:59 01/06/20 08:29 Furosemide (Lasix) 20 mg DAILY IV 01/03/20 09:00 01/31/20 08:59 01/03/20 09:25 Heparin Sodium (Porcine) (Heparin 5000 units/ml) 5,000 units EVERY 12 HOURS SUBQ 01/02/20 21:00 02/13/20 20:59 01/06/20 08:32 Lorazepam (Ativan 2mg/ml 1ml) 0.5 mg Q4H PRN IV For Anxiety 01/02/20 18:05 01/06/20 18:04 Memantine (Namenda) 5 mg DAILY ORAL 01/03/20 09:00 01/31/20 08:59 01/06/20 08:29 Methylprednisolone Sodium Succinate (Solu-MEDROL) 60 mg DAILY IV 01/04/20 09:00 03/29/20 17:59 01/06/20 08:28 Mirtazapine (Remeron) 7.5 mg BEDTIME ORAL 01/04/20 21:00 04/03/20 20:59 01/05/20 21:47 Nitroglycerin (Ntg) 0.4 mg Q5M X 3 DOSES PRN SL Prn Chest Pain 01/02/20 18:00 01/29/20 12:59 Ondansetron HCl (Zofran) 4 mg Q6H PRN IVP Nausea & Vomiting 01/02/20 18:06 01/29/20 18:05 Pantoprazole (Protonix) 40 mg EVERY 12 HOURS ORAL 01/02/20 21:00 01/29/20 20:59 01/03/20 20:47 Potassium Chloride (K-Dur) 40 meq BID ORAL 01/02/20 18:00 03/30/20 09:59 01/06/20 08:29 Promethazine HCl/ Codeine (Phenergan with Codeine) 5 ml Q6H PRN ORAL cough 01/02/20 18:06 01/29/20 18:05 Temazepam (Restoril) 30 mg HSPRN PRN ORAL Insomnia 01/04/20 13:30 01/06/20 12:59 Theophylline (Rigoberto-Dur) 100 mg EVERY 12 HOURS ORAL 01/02/20 21:00 03/29/20 20:59 01/06/20 08:30 Assessment/Plan Problems: (1) Acute exacerbation of chronic obstructive airways disease (2) Acute bronchitis (3) Pulmonary nodule (4) Emphysema (5) Chronic back pain (6) History of CVA (cerebrovascular accident) (7) History of cocaine abuse (8) Tobacco dependence Assessment/Plan doing better respiratory treatment iv steroids, taper slowly, QD now check sputum, Klebsiella in sputum titrate fio2 to sat of 92% diuretics prn, Lasix qd, watch electrolytes cardiology evaluation dvt prophylaxis. Farhan Ortega MD Jan 06, 2020 12:17
--- NOTE | 2020-01-06 12:17 | NUR ---
CAKE MAKER NOTE CYRIL spoke fariba Swain from [facility] intake [phone] and faxed the referral packet to [phone]. Awaiting for call back Addendum: 01/06/20 at 1348 by MIKE NAM CYRIL spoke bharathi/ Sydnie from [facility] that there is no clinician available to evaluate pt d/t covid-19. 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
[2020-01-06] MEDS: Albuterol/Ipratropium 3ml neb HHN PRN (12:41)
--- NOTE | 2020-01-06 13:24 | General Progress Note ---
Assessment/Plan Problem List: (1) COPD (chronic obstructive pulmonary disease) ICD Codes: J44.9 - Chronic obstructive pulmonary disease, unspecified SNOMED: 19124759 Qualifiers: Qualified Codes: J44.9 - Chronic obstructive pulmonary disease, unspecified (2) Elevated lactic acid level ICD Codes: R79.89 - Other specified abnormal findings of blood chemistry SNOMED: 9959941 (3) Hypokalemia ICD Codes: E87.6 - Hypokalemia SNOMED: 49089743, 031249737 (4) Hypoxia ICD Codes: R09.02 - Hypoxemia SNOMED: 407374479 (5) Acute exacerbation of chronic obstructive airways disease ICD Codes: J44.1 - Acute exacerbation of chronic obstructive airways disease SNOMED: 289175641 (6) Chronic back pain ICD Codes: G89.29 - Other chronic pain; M54.9 - Chronic back pain SNOMED: 468476443 (7) History of CVA (cerebrovascular accident) ICD Codes: Z86.73 - History of stroke SNOMED: 504226387 (8) ACS (acute coronary syndrome) ICD Codes: I20.0 - Unstable angina SNOMED: 182456774 Status: stable, progressing Assessment/Plan: o2 pulm tx abx pain control pt diet cbc bmp am psyc transfer Subjective Constitutional: Reports: weakness Allergies: Coded Allergies: No Known Allergies (Unverified , 08/14/19) All Systems: reviewed and negative except above Subjective sl anxious Objective Last 24 Hour Vital Signs Date Time Temp Pulse Resp B/P (MAP) Pulse Ox O2 Delivery O2 Flow Rate FiO2 01/06/20 12:00 97.7 95 20 146/73 (97) 96 01/06/20 09:00 Nasal Cannula 2.0 01/06/20 08:00 97.5 73 20 138/71 (93) 99 01/06/20 05:38 141/73 01/06/20 04:00 97.9 80 20 141/73 (95) 93 01/06/20 00:00 98.1 76 20 132/78 (96) 94 01/05/20 21:47 80 160/83 01/05/20 21:47 160/83 01/05/20 21:00 Room Air 01/05/20 20:00 97.3 78 18 159/79 (105) 98 01/05/20 16:00 98.0 91 22 136/80 (98) 97 01/05/20 15:02 154/88 01/05/20 14:00 79 154/88 Intake and Output 01/05/20 01/06/20 19:00 07:00 Intake Total 1200 ml 400 ml Balance 1200 ml 400 ml Intake Oral 1200 ml Other 400 ml # Voids 8 3 # Bowel Movements 1 Height (Feet): 6 Height (Inches): 2.00 Weight (Pounds): 170 General Appearance: lethargic EENT: normal ENT inspection Neck: normal alignment Cardiovascular: normal rate, regular rhythm Respiratory/Chest: no respiratory distress, no accessory muscle use Extremities: normal inspection Skin: normal pigmentation Fred Kay DO Jan 06, 2020 13:24
--- NOTE | 2020-01-06 14:47 | Infectious Diseases Prog Note ---
Assessment/Plan Assessment/Plan Assessment: Viral syndrome- -12/29 SARS-COV2 pCR neg -Bcx Neg -HIV ab screen, acute hep panel, RPR neg COPD exacerbation Mild hypoxia upon admission- now resolved- now at 2l NC -01/05 CXR: no acute disease -01/01 CXR: Mild linear atelectasis versus scarring in the right lung base, not significantly changed. The lungs otherwise appear clear -12/29 CXR: Basilar atelectasis and scarring. No acute disease. -sp cx K. pna (R amp; otherwise S) Afebrile No leukocytosis Thrombocytopenia/Lymphopenia Lactic acidosis;SP -u/a neg -Bcx NTD Chronic diarrhea- r.o parasitic infection COPD homelessness (lives in his car) HTN OA DJD HLD chronic back pain CVA smoker cocaine and THC use Plan: -Continue to monitor off abx -01/03 SP Azithromycin #5 -01/02 SP Ceftriaxone #4 -12/30 SP ZOsyn #2 -f/u cx -Monitor CBC/CMP, temperatures -COVID19 isolation and testing; [id number] test- will dc isolation as has remained afebrile, at RA and alternative diagnosis (bacterial bronchitis) -f/u HIV VL -u/a w/ reflex -stool studies Thank you for this consultation. Will continue to follow along with you. Discussed with RN. Subjective Allergies: Coded Allergies: No Known Allergies (Unverified , 08/14/19) Subjective afebrile now at 2l NC awaiting transfer to Psych unit Objective Vital Signs Last 24 Hour Vital Signs Date Time Temp Pulse Resp B/P (MAP) Pulse Ox O2 Delivery O2 Flow Rate FiO2 01/06/20 12:00 97.7 95 20 146/73 (97) 96 01/06/20 09:00 Nasal Cannula 2.0 01/06/20 08:00 97.5 73 20 138/71 (93) 99 01/06/20 05:38 141/73 01/06/20 04:00 97.9 80 20 141/73 (95) 93 01/06/20 00:00 98.1 76 20 132/78 (96) 94 01/05/20 21:47 80 160/83 01/05/20 21:47 160/83 01/05/20 21:00 Room Air 01/05/20 20:00 97.3 78 18 159/79 (105) 98 01/05/20 16:00 98.0 91 22 136/80 (98) 97 01/05/20 15:02 154/88 Height (Feet): 6 Height (Inches): 2.00 Weight (Pounds): 170 Objective not examined to limit COVID19 exposure Current Medications Medications (Trade) Dose Ordered Sig/Aguila Route PRN Reason Start Time Stop Time Status Last Admin Dose Admin Acetaminophen/ Hydrocodone Bitart ([place] 10/325) 1 tab Q4H PRN ORAL For Pain 01/02/20 18:05 01/06/20 18:04 01/03/20 22:32 Albuterol/ Ipratropium (Albuterol/ Ipratropium) 3 ml Q4H PRN HHN Shortness of Breath 01/06/20 09:15 01/11/20 09:14 01/06/20 12:41 Aspirin (Ecotrin) 81 mg DAILY ORAL 01/03/20 09:00 02/16/20 08:59 01/06/20 08:29 Clonidine HCl (Catapres Tab) 0.1 mg EVERY 8 HOURS ORAL 01/02/20 22:00 03/31/20 13:59 01/06/20 05:38 Clonidine HCl (Catapres Tab) 0.1 mg Q4H PRN ORAL bp over 165 syst 01/02/20 18:02 03/30/20 18:01 Dextrose (Dextrose 50%) 25 ml Q30M PRN IV Hypoglycemia 01/02/20 18:00 03/29/20 12:59 Dextrose (Dextrose 50%) 50 ml Q30M PRN IV Hypoglycemia 01/02/20 18:00 03/29/20 12:59 Diltiazem HCl (Cardizem) 60 mg EVERY 8 HOURS ORAL 01/02/20 22:00 01/31/20 21:59 01/05/20 21:47 Docusate Sodium (Colace) 100 mg THREE TIMES A DAY ORAL 01/02/20 18:00 01/30/20 08:59 01/05/20 08:55 Folic Acid (Folate) 2 mg DAILY ORAL 01/03/20 09:00 01/31/20 08:59 01/06/20 08:29 Furosemide (Lasix) 20 mg DAILY IV 01/03/20 09:00 01/31/20 08:59 01/03/20 09:25 Heparin Sodium (Porcine) (Heparin 5000 units/ml) 5,000 units EVERY 12 HOURS SUBQ 01/02/20 21:00 02/13/20 20:59 01/06/20 08:32 Lorazepam (Ativan 2mg/ml 1ml) 0.5 mg Q4H PRN IV For Anxiety 01/02/20 18:05 01/06/20 18:04 Memantine (Namenda) 5 mg DAILY ORAL 01/03/20 09:00 01/31/20 08:59 01/06/20 08:29 Methylprednisolone Sodium Succinate (Solu-MEDROL) 60 mg DAILY IV 01/04/20 09:00 03/29/20 17:59 01/06/20 08:28 Mirtazapine (Remeron) 7.5 mg BEDTIME ORAL 01/04/20 21:00 04/03/20 20:59 01/05/20 21:47 Nitroglycerin (Ntg) 0.4 mg Q5M X 3 DOSES PRN SL Prn Chest Pain 01/02/20 18:00 01/29/20 12:59 Ondansetron HCl (Zofran) 4 mg Q6H PRN IVP Nausea & Vomiting 01/02/20 18:06 01/29/20 18:05 Pantoprazole (Protonix) 40 mg EVERY 12 HOURS ORAL 01/02/20 21:00 01/29/20 20:59 01/03/20 20:47 Potassium Chloride (K-Dur) 40 meq BID ORAL 01/02/20 18:00 03/30/20 09:59 01/06/20 08:29 Promethazine HCl/ Codeine (Phenergan with Codeine) 5 ml Q6H PRN ORAL cough 01/02/20 18:06 01/29/20 18:05 Theophylline (Rigoberto-Dur) 100 mg EVERY 12 HOURS ORAL 01/02/20 21:00 03/29/20 20:59 01/06/20 08:30 Isabel Schultz M.D. Jan 06, 2020 14:47
[2020-01-06] MEDS: HYDROcodone/Acetamin 10/325 tab ORAL PRN (16:30)
--- NOTE | 2020-01-06 17:30 | Progress Note ---
DATE: 01/06/2020 SUBJECTIVE: This is a 79-year-old male with hypoxia. He has altered mental status, confusion, decline in cognition below his baseline, but he has extreme mood lability, confusion, decline in cognition below his baseline. That is why, his attending has requested daily psychiatric consultation. He has hypoxia. DIAGNOSIS: Major depressive disorder, mild, recurrent with psychotic features, rule out dementia with psychosis. PLAN: Continue treatment with medications to stabilize his mood. Twenty minutes of insight-oriented psychotherapy to help him recognize his physical and psychiatric condition, so he has better impulse control and recognition of his illness. Misha Bird M.D. DR: ROHAN JOB#: [id number] CC:
--- NOTE | 2020-01-06 17:50 | NUR ---
NURSE NOTES: Left message with Dr. Misha Bird informing that [facility] is unable to send an waitstaff due to Covid.
--- NOTE | 2020-01-06 20:00 | NUR ---
NURSE NOTES: Patient awake, in bed and able to make needs known. On room air with no signs of distress. Bed locked and in lowest position. Call light in reach. Will continue to monitor.
--- NOTE | 2020-01-06 20:03 | NUR ---
HAND-OFF: Report given to Deidra Bradley RN. Patient in semi-Blackman's position, awake and alert, watching television, oxygen at 2 liters nasal cannula, urinal at bedside, snacks at bedside, side rails up x 3, bed in lowest position, call light within reach, no c/o pain, no SOB, in no apparent distress.
--- NOTE | 2020-01-06 20:30 | NUR ---
NURSE NOTES: Patient asked to have his inhaler from home refilled. Explained to patient that we are unable to refill his home inhaler and that he has an order for duoneb which can be administered by RT as needed. Patient verbalized understanding but refused RT treatment, stating he doesn't want RT doing anything for him. Will continue to monitor.
[2020-01-07 04:00] VITALS: BP 137/72
[2020-01-07] MEDS: dilTIAZem HCl 60mg tab ORAL SCH ×3 (06:00→21:32)
[2020-01-07 06:53] LABS: BASOPHILS % (AUTO) 1.1 % (0.0-2.0); EOSINOPHILS % (AUTO) 0.1 % (0.0-3.0); HEMATOCRIT 35.8 % (42.0-52.0); HEMOGLOBIN 11.2 G/DL (14.2-18.0); MEAN CORPUSCULAR VOLUME 105 FL (80-99); MONOCYTES % (AUTO) 14.9 % (1.0-10.0); NEUTROPHILS % (AUTO) 73.9 % (45.0-75.0); PLATELET COUNT 169 K/UL (150-450); RED CELL DISTRIBUTION WIDTH 15.9 % (11.6-14.8); WHITE BLOOD COUNT 8.1 K/UL (4.8-10.8)
[2020-01-07 07:04] LABS: ANION GAP 6 mmol/L (5-15); BLOOD UREA NITROGEN 33 mg/dL (7-18); CALCIUM 8.7 MG/DL (8.5-10.1); CARBON DIOXIDE 30 MMOL/L (21-32); CHLORIDE 102 MMOL/L (98-107); CREATININE 0.9 MG/DL (0.55-1.30); POTASSIUM 4.5 MMOL/L (3.5-5.1); SODIUM 138 MMOL/L (136-145)
--- NOTE | 2020-01-07 07:41 | NUR ---
NURSE NOTES: Received report from NICKOLAS Gay. Currently on room air, no signs of distress. Patient awake and alert. IV intact, patent, and saline locked. Bed in lowest position with call light in reach. Will continue with plan of care.
[2020-01-07 08:00] VITALS: BP 126/69
--- NOTE | 2020-01-07 08:00 | NUR ---
NURSE NOTES: Patient is back on 2L/min nasal cannula. Sating well. No signs of distress or labored breathing. Will continue to monitor.
[2020-01-07] MEDS: Docusate 100mg cap ORAL SCH ×3 (09:00→17:47)
[2020-01-07] MEDS: Aspirin EC 81mg tab ORAL SCH (09:13)
[2020-01-07] MEDS: Memantine 5 MG TAB ORAL SCH (09:14)
[2020-01-07] MEDS: Theophylline ER 100mg ORAL SCH ×2 (09:14→21:00)
[2020-01-07] MEDS: Solu-MEDROL 125mg Inj IV SCH (09:14)
[2020-01-07] MEDS: Heparin 5000 units/ml inj SUBQ SCH ×2 (09:19→21:24)
--- NOTE | 2020-01-07 09:30 | Progress Note ---
DATE: 01/07/2020 SUBJECTIVE: The patient is a 79-year-old male with hypoxia. This patient continues to have some confusion, some disorganized thought process, and mood lability. Because his cognition has declined below his baseline, his attending has requested daily psychiatric consultation. He also has history of CVA, chronic back pain, degenerative disc disease, peripheral neuropathy, emphysema, history of cocaine abuse . MENTAL STATUS EXAMINATION: This is a 79-year-old male. Appearance is disheveled. Attitude, irritable and agitated. Affect, guarded and restricted. Intellect, poor. Mood, depressed and anxious. Motor activity, psychomotor agitation. Insight and judgment is poor. DIAGNOSIS: Major depressive disorder, mild, recurrent with psychotic features. PLAN: Treat him with Remeron 7.5 mg nightly and Namenda 5 mg daily. 20 minutes of cognitive behavioral therapy to help him identify his automatic negative thoughts and convert his negative thoughts to more positive thoughts to reduce depression, anxiety, and mood lability. Chart reviewed. Discussed with staff. Also Ativan 0.5 mg IV every 4 hours p.r.n. anxiety or agitation. Misha Bird M.D. DR: TRANG JOB#: [id number] CC:
--- NOTE | 2020-01-07 09:30 | NUR ---
NURSE NOTES: Patient is refusing some of his medications. RN explained benefits of medications and patient still refused.
--- NOTE | 2020-01-07 09:41 | NUR ---
SAMPLE CASE PORTER NOTE SW spoke w/ Shelia from [facility] [phone] #7 that there is no bed available as of today.
--- NOTE | 2020-01-07 10:00 | NUR ---
NURSE NOTES: Patient refusing to have stool collected for lab resting. RN explained importance of this and patient still declined. Charge nurse aware.
--- NOTE | 2020-01-07 10:46 | General Progress Note ---
Assessment/Plan Problem List: (1) COPD (chronic obstructive pulmonary disease) ICD Codes: J44.9 - Chronic obstructive pulmonary disease, unspecified SNOMED: 61550386 Qualifiers: Qualified Codes: J44.9 - Chronic obstructive pulmonary disease, unspecified (2) Elevated lactic acid level ICD Codes: R79.89 - Other specified abnormal findings of blood chemistry SNOMED: 5036798 (3) Hypokalemia ICD Codes: E87.6 - Hypokalemia SNOMED: 32738053, 576985361 (4) Hypoxia ICD Codes: R09.02 - Hypoxemia SNOMED: 535440904 (5) Acute exacerbation of chronic obstructive airways disease ICD Codes: J44.1 - Acute exacerbation of chronic obstructive airways disease SNOMED: 528121544 (6) Chronic back pain ICD Codes: G89.29 - Other chronic pain; M54.9 - Chronic back pain SNOMED: 382127538 (7) History of CVA (cerebrovascular accident) ICD Codes: Z86.73 - History of stroke SNOMED: 751734890 (8) ACS (acute coronary syndrome) ICD Codes: I20.0 - Unstable angina SNOMED: 868061872 Status: stable, progressing Assessment/Plan: o2 pulm tx abx pain control pt diet cbc bmp am psyc transfer vs dc plan Subjective Constitutional: Reports: weakness Allergies: Coded Allergies: No Known Allergies (Unverified , 08/14/19) All Systems: reviewed and negative except above Subjective sl anxious Objective Last 24 Hour Vital Signs Date Time Temp Pulse Resp B/P (MAP) Pulse Ox O2 Delivery O2 Flow Rate FiO2 01/07/20 09:00 Room Air 01/07/20 08:00 98.0 85 18 126/69 (88) 98 01/07/20 06:09 137/72 01/07/20 06:00 71 137/72 01/07/20 04:00 97.0 71 18 137/72 (93) 95 01/06/20 23:56 97.0 78 20 135/73 (93) 96 01/06/20 21:11 158/82 01/06/20 21:09 96 158/82 01/06/20 20:46 Nasal Cannula 2.0 01/06/20 20:00 97.7 96 24 158/82 (107) 97 01/06/20 17:00 97.7 01/06/20 16:00 98.1 98 20 149/84 (105) 96 01/06/20 15:00 146/73 01/06/20 14:00 95 146/73 01/06/20 12:41 98 20 100 101 22 98 01/06/20 12:00 97.7 95 20 146/73 (97) 96 Intake and Output 01/06/20 01/07/20 19:00 07:00 Intake Total 1200 ml 1500 ml Balance 1200 ml 1500 ml Intake Oral 1200 ml 1500 ml # Voids 5 3 Laboratory Tests 01/07/20 06:34: White Blood Count 8.1, Red Blood Count 3.40L, Hemoglobin 11.2L, Hematocrit 35.8L , Mean Corpuscular Volume 105H, Mean Corpuscular Hemoglobin 33.0H, Mean Corpuscular Hemoglobin Concent 31.4L, Red Cell Distribution Width 15.9H, Platelet Count 169, Mean Platelet Volume 7.4, Neutrophils (%) (Auto) 73.9, Lymphocytes (%) (Auto) 10.0L, Monocytes (%) (Auto) 14.9H, Eosinophils (%) (Auto ) 0.1, Basophils (%) (Auto) 1.1, Sodium Level 138, Potassium Level 4.5, Chloride Level 102, Carbon Dioxide Level 30, Anion Gap 6, Blood Urea Nitrogen 33H, Creatinine 0.9, Estimat Glomerular Filtration Rate > 60, Glucose Level 93, Calcium Level 8.7 Height (Feet): 6 Height (Inches): 2.00 Weight (Pounds): 170 General Appearance: lethargic EENT: normal ENT inspection Neck: normal alignment Cardiovascular: normal rate, regular rhythm Respiratory/Chest: no respiratory distress, no accessory muscle use Extremities: normal range of motion Edema: trace edema Fred Kay DO Jan 07, 2020 10:46
--- NOTE | 2020-01-07 11:48 | NUR ---
*-*DISCHARGE PLANNING*-* PATIENT HAS BEEN REFERRED TO: [facility] P: [phone] Addendum: 01/07/20 at 1336 by FAINA CLEMENS LVN DATA ENTRY TECHNICIAN DR WARD INFORMED THAT PATIENT IS HOMELESS.
[2020-01-07 12:00] VITALS: BP 123/70
--- NOTE | 2020-01-07 12:25 | NUR ---
CASE MANAGEMENT:REVIEW SI;COPD W/ACUTE EXACERBATION. ACUTE CORONARY SYNDROME. 98.3 85 19 137/72 96% ON RA BUN 33 IS;DUO NEB HHN Q4 PRN SOLU-MEDROL IV QD ASA PO QD LASIX IV AD HEPARIN SUBQ Q12 PROTONIX PO Q12 MED SURG STATUS DCP;PATIENT IS HOMELESS
[2020-01-07] MEDS: Albuterol/Ipratropium 3ml neb HHN PRN (13:37)
--- NOTE | 2020-01-07 13:41 | Nephrology Progress Note ---
Assessment/Plan Problem List: (1) Electrolyte imbalance (2) Hypokalemia (3) Acute exacerbation of chronic obstructive airways disease (4) History of cocaine abuse (5) HTN (hypertension) Assessment This 79-year-old male is admitted with hypoxia, and leg swelling Renal impression: Hypokalemia, unclear etiology. No definite history of diarrhea given by the patient. No diuretic on the list of medications. Hypomagnesemia. Other conditions: Exacerbation of COPD, acute bronchitis, suspected COVID-19 infection Elevated lactate acid Patient is chronic smoker History of cocaine and marijuana abuse Hypertension Chronic back pain History of CVA Anemia Homelessness . Plan Remains stable from renal standpoint of view Potassium supplement as needed Start clonidine for blood pressure with parameters. Check chemistry panel as needed Continue per pulmonary management, pulmonary toilet, steroids, aim to taper as possible, per pulmonary Potassium and magnesium supplement as needed. Monitor renal parameters and electrolytes. Keep the blood pressure and blood sugar in check. Per orders. Subjective ROS Limited/Unobtainable: No Constitutional: Reports: malaise Objective Objective Last 24 Hour Vital Signs Date Time Temp Pulse Resp B/P (MAP) Pulse Ox O2 Delivery O2 Flow Rate FiO2 01/07/20 12:00 98.3 81 19 123/70 (87) 99 01/07/20 09:00 Room Air 01/07/20 08:00 98.0 85 18 126/69 (88) 98 01/07/20 07:59 83 16 96 Room Air 21 01/07/20 06:09 137/72 01/07/20 06:00 71 137/72 01/07/20 04:00 97.0 71 18 137/72 (93) 95 01/06/20 23:56 97.0 78 20 135/73 (93) 96 01/06/20 21:11 158/82 01/06/20 21:09 96 158/82 01/06/20 20:46 Nasal Cannula 2.0 01/06/20 20:00 97.7 96 24 158/82 (107) 97 01/06/20 17:00 97.7 01/06/20 16:00 98.1 98 20 149/84 (105) 96 01/06/20 15:00 146/73 01/06/20 14:00 95 146/73 Intake and Output 01/06/20 01/07/20 19:00 07:00 Intake Total 1200 ml 1500 ml Balance 1200 ml 1500 ml Intake Oral 1200 ml 1500 ml # Voids 5 3 Laboratory Tests 01/07/20 06:34: White Blood Count 8.1, Red Blood Count 3.40L, Hemoglobin 11.2L, Hematocrit 35.8L , Mean Corpuscular Volume 105H, Mean Corpuscular Hemoglobin 33.0H, Mean Corpuscular Hemoglobin Concent 31.4L, Red Cell Distribution Width 15.9H, Platelet Count 169, Mean Platelet Volume 7.4, Neutrophils (%) (Auto) 73.9, Lymphocytes (%) (Auto) 10.0L, Monocytes (%) (Auto) 14.9H, Eosinophils (%) (Auto ) 0.1, Basophils (%) (Auto) 1.1, Sodium Level 138, Potassium Level 4.5, Chloride Level 102, Carbon Dioxide Level 30, Anion Gap 6, Blood Urea Nitrogen 33H, Creatinine 0.9, Estimat Glomerular Filtration Rate > 60, Glucose Level 93, Calcium Level 8.7 Height (Feet): 6 Height (Inches): 2.00 Weight (Pounds): 170 General Appearance: no apparent distress Cardiovascular: tachycardia Respiratory/Chest: decreased breath sounds Abdomen: soft Objective No change Micky Ivy MD Jan 07, 2020 13:41
--- NOTE | 2020-01-07 14:10 | Pulmonology Progress Note ---
Subjective ROS Limited/Unobtainable: No Constitutional: Reports: no symptoms HEENT: Repors: no symptoms Respiratory: Reports: no symptoms Allergies: Coded Allergies: No Known Allergies (Unverified , 08/14/19) All Systems: reviewed and negative except above Objective Last 24 Hour Vital Signs Date Time Temp Pulse Resp B/P (MAP) Pulse Ox O2 Delivery O2 Flow Rate FiO2 01/07/20 13:44 103 21 100 Nasal Cannula 2.0 28 102 23 97 01/07/20 12:00 98.3 81 19 123/70 (87) 99 01/07/20 09:00 Room Air 01/07/20 08:00 98.0 85 18 126/69 (88) 98 01/07/20 07:59 83 16 96 Room Air 21 01/07/20 06:09 137/72 01/07/20 06:00 71 137/72 01/07/20 04:00 97.0 71 18 137/72 (93) 95 01/06/20 23:56 97.0 78 20 135/73 (93) 96 01/06/20 21:11 158/82 01/06/20 21:09 96 158/82 01/06/20 20:46 Nasal Cannula 2.0 01/06/20 20:00 97.7 96 24 158/82 (107) 97 01/06/20 17:00 97.7 01/06/20 16:00 98.1 98 20 149/84 (105) 96 01/06/20 15:00 146/73 Intake and Output 01/06/20 01/07/20 19:00 07:00 Intake Total 1200 ml 1500 ml Balance 1200 ml 1500 ml Intake Oral 1200 ml 1500 ml # Voids 5 3 General Appearance: cachetic - male in NAD HEENT: normocephalic, atraumatic Respiratory: chest wall non-tender, decreased breath sounds, other - isolated rhonchi Cardiovascular: normal peripheral pulses, normal rate Abdomen: normal bowel sounds, soft, non tender Extremities: no edema, pedal pulses normal Skin: no rash 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, alert, oriented x 3, responsive Musculoskeletal: normal muscle bulk Laboratory Tests 01/07/20 06:34: White Blood Count 8.1, Red Blood Count 3.40L, Hemoglobin 11.2L, Hematocrit 35.8L , Mean Corpuscular Volume 105H, Mean Corpuscular Hemoglobin 33.0H, Mean Corpuscular Hemoglobin Concent 31.4L, Red Cell Distribution Width 15.9H, Platelet Count 169, Mean Platelet Volume 7.4, Neutrophils (%) (Auto) 73.9, Lymphocytes (%) (Auto) 10.0L, Monocytes (%) (Auto) 14.9H, Eosinophils (%) (Auto ) 0.1, Basophils (%) (Auto) 1.1, Sodium Level 138, Potassium Level 4.5, Chloride Level 102, Carbon Dioxide Level 30, Anion Gap 6, Blood Urea Nitrogen 33H, Creatinine 0.9, Estimat Glomerular Filtration Rate > 60, Glucose Level 93, Calcium Level 8.7 Current Medications Medications (Trade) Dose Ordered Sig/Aguila Route PRN Reason Start Time Stop Time Status Last Admin Dose Admin Albuterol/ Ipratropium (Albuterol/ Ipratropium) 3 ml Q4H PRN HHN Shortness of Breath 01/06/20 09:15 01/11/20 09:14 01/07/20 13:37 Aspirin (Ecotrin) 81 mg DAILY ORAL 01/03/20 09:00 02/16/20 08:59 01/07/20 09:13 Clonidine HCl (Catapres Tab) 0.1 mg EVERY 8 HOURS ORAL 01/02/20 22:00 03/31/20 13:59 01/07/20 06:09 Clonidine HCl (Catapres Tab) 0.1 mg Q4H PRN ORAL bp over 165 syst 01/02/20 18:02 03/30/20 18:01 Dextrose (Dextrose 50%) 25 ml Q30M PRN IV Hypoglycemia 01/02/20 18:00 03/29/20 12:59 Dextrose (Dextrose 50%) 50 ml Q30M PRN IV Hypoglycemia 01/02/20 18:00 03/29/20 12:59 Diltiazem HCl (Cardizem) 60 mg EVERY 8 HOURS ORAL 01/02/20 22:00 01/31/20 21:59 01/06/20 21:09 Docusate Sodium (Colace) 100 mg THREE TIMES A DAY ORAL 01/02/20 18:00 01/30/20 08:59 01/05/20 08:55 Folic Acid (Folate) 2 mg DAILY ORAL 01/03/20 09:00 01/31/20 08:59 01/07/20 09:14 Furosemide (Lasix) 20 mg DAILY IV 01/03/20 09:00 01/31/20 08:59 01/03/20 09:25 Heparin Sodium (Porcine) (Heparin 5000 units/ml) 5,000 units EVERY 12 HOURS SUBQ 01/02/20 21:00 02/13/20 20:59 01/07/20 09:19 Memantine (Namenda) 5 mg DAILY ORAL 01/03/20 09:00 01/31/20 08:59 01/07/20 09:14 Methylprednisolone Sodium Succinate (Solu-MEDROL) 60 mg DAILY IV 01/04/20 09:00 03/29/20 17:59 01/07/20 09:14 Mirtazapine (Remeron) 7.5 mg BEDTIME ORAL 01/04/20 21:00 04/03/20 20:59 01/06/20 21:09 Nitroglycerin (Ntg) 0.4 mg Q5M X 3 DOSES PRN SL Prn Chest Pain 01/02/20 18:00 01/29/20 12:59 Ondansetron HCl (Zofran) 4 mg Q6H PRN IVP Nausea & Vomiting 01/02/20 18:06 01/29/20 18:05 Pantoprazole (Protonix) 40 mg EVERY 12 HOURS ORAL 01/02/20 21:00 01/29/20 20:59 01/03/20 20:47 Potassium Chloride (K-Dur) 40 meq BID ORAL 01/02/20 18:00 03/30/20 09:59 01/07/20 09:14 Promethazine HCl/ Codeine (Phenergan with Codeine) 5 ml Q6H PRN ORAL cough 01/02/20 18:06 01/29/20 18:05 Theophylline (Rigoberto-Dur) 100 mg EVERY 12 HOURS ORAL 01/02/20 21:00 03/29/20 20:59 01/07/20 09:14 Assessment/Plan Problems: (1) Acute exacerbation of chronic obstructive airways disease (2) Acute bronchitis (3) Pulmonary nodule (4) Emphysema (5) Chronic back pain (6) History of CVA (cerebrovascular accident) (7) History of cocaine abuse (8) Tobacco dependence Assessment/Plan not as angry as yesterday getting his nebulizer treatment now doing better respiratory treatment iv steroids, taper slowly, QD now check sputum, Klebsiella in sputum, resistant to Ampicillin titrate fio2 to sat of 92% diuretics prn, Lasix qd, watch electrolytes cardiology evaluation dvt prophylaxis. Farhan Ortega MD Jan 07, 2020 14:10
--- NOTE | 2020-01-07 14:25 | NUR ---
*-*DISCHARGE PLAN*-* PATIENT HAS BEEN ACCEPTED WITH: [facility] P: [phone] S/ W ABE, STATED THEY WILL SERVICE PATIENT UPON DISCHARGE.
[2020-01-07 16:00] VITALS: BP 145/86
--- NOTE | 2020-01-07 16:12 | NUR ---
NURSE NOTES: Received clearance from all consulting MDs except nutrition professor, Dr. Ortega. Patient is still experiencing SOB. No wheezing or rhonchi upon auscultation. On 2L/min nasal cannula. RT has seen patient and given breathing treatment. Charge nurse aware. Left message to notify primary MD, Dr. Kay.
--- NOTE | 2020-01-07 19:00 | NUR ---
NURSE NOTES: Received report from NICKOLAS Brunson. Patient is awake, lying in semi yañez's; resting comfortably. A/Ox4. Denies pain at this time. No signs of acute distress noted. Checked IV site and flushed. No erythema, bleeding or infiltration noted. Bed at lowest position, brakes on, siderailsx2. Call light within reach. Will continue to monitor.
--- NOTE | 2020-01-07 19:41 | Infectious Diseases Prog Note ---
Assessment/Plan Assessment: Viral syndrome- -12/29 SARS-COV2 pCR neg -Bcx Neg -HIV ab screen, acute hep panel, RPR neg COPD exacerbation Mild hypoxia upon admission- now resolved- now at 2l NC -01/05 CXR: no acute disease -01/01 CXR: Mild linear atelectasis versus scarring in the right lung base, not significantly changed. The lungs otherwise appear clear -12/29 CXR: Basilar atelectasis and scarring. No acute disease. -sp cx K. pna (R amp; otherwise S) Afebrile No leukocytosis Thrombocytopenia/Lymphopenia Lactic acidosis;SP -u/a neg -Bcx NTD Chronic diarrhea- r.o parasitic infection COPD homelessness (lives in his car) HTN OA DJD HLD chronic back pain CVA smoker cocaine and THC use Plan: -Continue to monitor off abx -01/03 SP Azithromycin #5 -01/02 SP Ceftriaxone #4 -12/30 SP ZOsyn #2 -f/u cx -Monitor CBC/CMP, temperatures -COVID19 isolation and testing; [id number] test- will dc isolation as has remained afebrile, at RA and alternative diagnosis (bacterial bronchitis) -f/u HIV VL -u/a w/ reflex -stool studies Thank you for this consultation. Will continue to follow along with you. Discussed with RN. Subjective Allergies: Coded Allergies: No Known Allergies (Unverified , 08/14/19) afebrile at 2l NC awaiting transfer to Psych unit Objective Last 24 Hour Vital Signs Date Time Temp Pulse Resp B/P (MAP) Pulse Ox O2 Delivery O2 Flow Rate FiO2 01/07/20 16:00 98.2 92 20 145/86 (105) 95 01/07/20 14:00 103 123/70 01/07/20 14:00 123/70 01/07/20 13:44 103 21 100 Nasal Cannula 2.0 28 102 23 97 01/07/20 12:00 98.3 81 19 123/70 (87) 99 01/07/20 09:00 Room Air 01/07/20 08:00 98.0 85 18 126/69 (88) 98 01/07/20 07:59 83 16 96 Room Air 21 01/07/20 06:09 137/72 01/07/20 06:00 71 137/72 01/07/20 04:00 97.0 71 18 137/72 (93) 95 01/06/20 23:56 97.0 78 20 135/73 (93) 96 01/06/20 21:11 158/82 01/06/20 21:09 96 158/82 01/06/20 20:46 Nasal Cannula 2.0 01/06/20 20:00 97.7 96 24 158/82 (107) 97 Height (Feet): 6 Height (Inches): 2.00 Weight (Pounds): 170 not examined to limit COVID19 exposure Laboratory Tests Test 01/07/20 06:34 White Blood Count 8.1 K/UL (4.8-10.8) Red Blood Count 3.40 M/UL (4.70-6.10) L Hemoglobin 11.2 G/DL (14.2-18.0) L Hematocrit 35.8 % (42.0-52.0) L Mean Corpuscular Volume 105 FL (80-99) H Mean Corpuscular Hemoglobin 33.0 PG (27.0-31.0) H Mean Corpuscular Hemoglobin Concent 31.4 G/DL (32.0-36.0) L Red Cell Distribution Width 15.9 % (11.6-14.8) H Platelet Count 169 K/UL (150-450) Mean Platelet Volume 7.4 FL (6.5-10.1) Neutrophils (%) (Auto) 73.9 % (45.0-75.0) Lymphocytes (%) (Auto) 10.0 % (20.0-45.0) L Monocytes (%) (Auto) 14.9 % (1.0-10.0) H Eosinophils (%) (Auto) 0.1 % (0.0-3.0) Basophils (%) (Auto) 1.1 % (0.0-2.0) Sodium Level 138 MMOL/L (136-145) Potassium Level 4.5 MMOL/L (3.5-5.1) Chloride Level 102 MMOL/L (98-107) Carbon Dioxide Level 30 MMOL/L (21-32) Anion Gap 6 mmol/L (5-15) Blood Urea Nitrogen 33 mg/dL (7-18) H Creatinine 0.9 MG/DL (0.55-1.30) Estimat Glomerular Filtration Rate > 60 mL/min (>60) Glucose Level 93 MG/DL (74-106) Calcium Level 8.7 MG/DL (8.5-10.1) Current Medications Medications (Trade) Dose Ordered Sig/Aguila Route PRN Reason Start Time Stop Time Status Last Admin Dose Admin Albuterol/ Ipratropium (Albuterol/ Ipratropium) 3 ml Q3H PRN HHN Shortness of Breath 01/07/20 16:30 01/12/20 16:29 Aspirin (Ecotrin) 81 mg DAILY ORAL 01/03/20 09:00 02/16/20 08:59 01/07/20 09:13 Clonidine HCl (Catapres Tab) 0.1 mg EVERY 8 HOURS ORAL 01/02/20 22:00 03/31/20 13:59 01/07/20 06:09 Clonidine HCl (Catapres Tab) 0.1 mg Q4H PRN ORAL bp over 165 syst 01/02/20 18:02 03/30/20 18:01 Dextrose (Dextrose 50%) 25 ml Q30M PRN IV Hypoglycemia 01/02/20 18:00 03/29/20 12:59 Dextrose (Dextrose 50%) 50 ml Q30M PRN IV Hypoglycemia 01/02/20 18:00 03/29/20 12:59 Diltiazem HCl (Cardizem) 60 mg EVERY 8 HOURS ORAL 01/02/20 22:00 01/31/20 21:59 01/06/20 21:09 Docusate Sodium (Colace) 100 mg THREE TIMES A DAY ORAL 01/02/20 18:00 01/30/20 08:59 01/05/20 08:55 Folic Acid (Folate) 2 mg DAILY ORAL 01/03/20 09:00 01/31/20 08:59 01/07/20 09:14 Furosemide (Lasix) 20 mg DAILY IV 01/03/20 09:00 01/31/20 08:59 01/03/20 09:25 Heparin Sodium (Porcine) (Heparin 5000 units/ml) 5,000 units EVERY 12 HOURS SUBQ 01/02/20 21:00 02/13/20 20:59 01/07/20 09:19 Memantine (Namenda) 5 mg DAILY ORAL 01/03/20 09:00 01/31/20 08:59 01/07/20 09:14 Methylprednisolone Sodium Succinate (Solu-MEDROL) 60 mg DAILY IV 01/04/20 09:00 03/29/20 17:59 01/07/20 09:14 Mirtazapine (Remeron) 7.5 mg BEDTIME ORAL 01/04/20 21:00 04/03/20 20:59 01/06/20 21:09 Nitroglycerin (Ntg) 0.4 mg Q5M X 3 DOSES PRN SL Prn Chest Pain 01/02/20 18:00 01/29/20 12:59 Ondansetron HCl (Zofran) 4 mg Q6H PRN IVP Nausea & Vomiting 01/02/20 18:06 01/29/20 18:05 Pantoprazole (Protonix) 40 mg EVERY 12 HOURS ORAL 01/02/20 21:00 01/29/20 20:59 01/03/20 20:47 Potassium Chloride (K-Dur) 40 meq BID ORAL 01/02/20 18:00 03/30/20 09:59 01/07/20 17:47 Promethazine HCl/ Codeine (Phenergan with Codeine) 5 ml Q6H PRN ORAL cough 01/02/20 18:06 01/29/20 18:05 Theophylline (Rigoberto-Dur) 100 mg EVERY 12 HOURS ORAL 01/02/20 21:00 03/29/20 20:59 01/07/20 09:14 Isabel Schultz M.D. Jan 07, 2020 19:41
--- NOTE | 2020-01-07 19:44 | NUR ---
HAND-OFF: Report given to NICKOLAS Castillo. Rounds done. Patient stable.
[2020-01-07 20:00] VITALS: BP 130/83
--- NOTE | 2020-01-07 21:00 | NUR ---
NURSE NOTES: Handed specimen bottle to patient for urine and stool specimen. Patient stated, "I refused to give my shit to you." Explained risk and benefitsx3. Patient adamantly refused to give stool specimen. Charge nurse made aware.
[2020-01-08] VITALS: BP 148/88
--- NOTE | 2020-01-08 01:02 | NUR ---
NURSE NOTES: Patient complained of chest pain, with a pain scale of 10/10, nonradiating. No other signs of symptoms noted. He requested for his chest pain medication. Pulled out NTG from [facility]. Tried to give NTG to patient, however, patient refused medication. Patient stated, "I don't want no nitroglycerin. Do you what it does to your body? It blows your head out." Explained to patient that medication is for chest pain. Patient adamantly refused the medication.
--- NOTE | 2020-01-08 01:10 | NUR ---
NURSE NOTES: Vital signs taken T: 97.5, MD: 80bpm, RR: 18, BP; 165/80. Gave PRN medication. Patient requested for breathing treatment, called RT for breathing treatment.
[2020-01-08] MEDS: Albuterol/Ipratropium 3ml neb HHN PRN ×2 (01:13→19:50)
--- NOTE | 2020-01-08 01:30 | NUR ---
NURSE NOTES: Patient denies pain at this time. No signs of acute distress noted.
[2020-01-08 04:00] VITALS: BP 134/77
[2020-01-08] MEDS: dilTIAZem HCl 60mg tab ORAL SCH ×3 (06:59→21:41)
--- NOTE | 2020-01-08 07:15 | NUR ---
HAND-OFF: Report given to OLIVER Cedillo. Plan of care endorsed.
[2020-01-08 07:22] LABS: APPEARANCE,URINE CLEAR; BILIRUBIN, URINE NEGATIVE (NEGATIVE); COLOR,URINE PALE YELLOW; GLUCOSE, URINE (UA) NEGATIVE (NEGATIVE); KETONES,URINE NEGATIVE (NEGATIVE); LEUKOCYTE ESTERASE ,URINE NEGATIVE (NEGATIVE); NITRITE,URINE NEGATIVE (NEGATIVE); PH,URINE 6.5 (4.5-8.0); PROTEIN,URINE NEGATIVE (NEGATIVE); UROBILINOGEN,URINE NORMAL MG/DL (0.0-1.0)
--- NOTE | 2020-01-08 07:35 | NUR ---
NURSE NOTES: RECEIVED PATIENT A/A/OX4, LYING IN BED WITH HOB ELEVATED FOR ADEQUATE VENTILATION. ON RA. NO ACUTE RESP DISTRESS NOTED. RESTING CALM AND COMFORTABLE. IV HEPLOCK PATENT AND INTACT. EXCELLENT APPETITE. AMBULATE WITH STEADY GAIT. NO C/O PAIN/DISCOMFORT NOTED. BED IS IN THE LOWEST POSITION. SIDERAILS ARE UPX3. BED ALARM AND LOCK @ ALL TIMES. CALL LIGHT IS WITHIN REACH. WILL CONT TO MONITOR.
[2020-01-08 08:00] VITALS: BP 138/85
--- NOTE | 2020-01-08 08:17 | Pulmonology Progress Note ---
Subjective ROS Limited/Unobtainable: No Allergies: Coded Allergies: No Known Allergies (Unverified , 08/14/19) Subjective no f/c no leuk still c/o CP, worse with breathing admits prior fall COVID 19 12/30 NGT Objective Last 24 Hour Vital Signs Date Time Temp Pulse Resp B/P (MAP) Pulse Ox O2 Delivery O2 Flow Rate FiO2 01/08/20 06:59 78 134/77 01/08/20 06:00 134/77 01/08/20 04:00 97.6 78 20 134/77 (96) 98 01/08/20 01:13 86 20 100 Room Air 21 73 18 97 01/08/20 01:12 165/80 01/08/20 00:00 98.7 87 18 148/88 (108) 95 01/07/20 22:00 130/83 01/07/20 21:32 81 130/83 01/07/20 21:00 Room Air 01/07/20 20:24 81 16 96 Room Air 21 01/07/20 20:00 97.8 92 18 130/83 (99) 95 01/07/20 16:00 98.2 92 20 145/86 (105) 95 01/07/20 14:00 103 123/70 01/07/20 14:00 123/70 01/07/20 13:44 103 21 100 Nasal Cannula 2.0 28 102 23 97 01/07/20 12:00 98.3 81 19 123/70 (87) 99 01/07/20 09:00 Room Air Intake and Output 01/07/20 01/08/20 19:00 07:00 Intake Total 1100 ml 400 ml Balance 1100 ml 400 ml Intake Oral 1100 ml 400 ml # Voids 4 3 # Bowel Movements 1 General Appearance: cachetic - male in NAD HEENT: normocephalic, atraumatic Respiratory: chest wall non-tender, decreased breath sounds, other - isolated rhonchi Cardiovascular: normal peripheral pulses, normal rate Abdomen: normal bowel sounds, soft, non tender Extremities: no edema, pedal pulses normal Skin: no rash 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, alert, oriented x 3, responsive Musculoskeletal: normal muscle bulk Laboratory Tests 01/08/20 07:00: Urine Color Pale yellow, Urine Appearance Clear, Urine pH 6.5, Urine Specific [place] 1.010, Urine Protein Negative, Urine Glucose (UA) Negative, Urine Ketones Negative, Urine Blood Negative, Urine Nitrite Negative, Urine Bilirubin Negative, Urine Urobilinogen Normal, Urine Leukocyte Esterase Negative Current Medications Medications (Trade) Dose Ordered Sig/Aguila Route PRN Reason Start Time Stop Time Status Last Admin Dose Admin Albuterol/ Ipratropium (Albuterol/ Ipratropium) 3 ml Q3H PRN HHN Shortness of Breath 01/07/20 16:30 01/12/20 16:29 01/08/20 01:13 Aspirin (Ecotrin) 81 mg DAILY ORAL 01/03/20 09:00 02/16/20 08:59 01/07/20 09:13 Clonidine HCl (Catapres Tab) 0.1 mg EVERY 8 HOURS ORAL 01/02/20 22:00 03/31/20 13:59 01/08/20 06:00 Clonidine HCl (Catapres Tab) 0.1 mg Q4H PRN ORAL bp over 165 syst 01/02/20 18:02 03/30/20 18:01 01/08/20 01:12 Dextrose (Dextrose 50%) 25 ml Q30M PRN IV Hypoglycemia 01/02/20 18:00 03/29/20 12:59 Dextrose (Dextrose 50%) 50 ml Q30M PRN IV Hypoglycemia 01/02/20 18:00 03/29/20 12:59 Diltiazem HCl (Cardizem) 60 mg EVERY 8 HOURS ORAL 01/02/20 22:00 01/31/20 21:59 01/08/20 06:59 Docusate Sodium (Colace) 100 mg THREE TIMES A DAY ORAL 01/02/20 18:00 01/30/20 08:59 01/05/20 08:55 Folic Acid (Folate) 2 mg DAILY ORAL 01/03/20 09:00 01/31/20 08:59 01/07/20 09:14 Furosemide (Lasix) 20 mg DAILY IV 01/03/20 09:00 01/31/20 08:59 01/03/20 09:25 Heparin Sodium (Porcine) (Heparin 5000 units/ml) 5,000 units EVERY 12 HOURS SUBQ 01/02/20 21:00 02/13/20 20:59 01/07/20 21:24 Memantine (Namenda) 5 mg DAILY ORAL 01/03/20 09:00 01/31/20 08:59 01/07/20 09:14 Methylprednisolone Sodium Succinate (Solu-MEDROL) 60 mg DAILY IV 01/04/20 09:00 03/29/20 17:59 01/07/20 09:14 Mirtazapine (Remeron) 7.5 mg BEDTIME ORAL 01/04/20 21:00 04/03/20 20:59 01/07/20 21:23 Nitroglycerin (Ntg) 0.4 mg Q5M X 3 DOSES PRN SL Prn Chest Pain 01/02/20 18:00 01/29/20 12:59 Ondansetron HCl (Zofran) 4 mg Q6H PRN IVP Nausea & Vomiting 01/02/20 18:06 01/29/20 18:05 Pantoprazole (Protonix) 40 mg EVERY 12 HOURS ORAL 01/02/20 21:00 01/29/20 20:59 01/03/20 20:47 Potassium Chloride (K-Dur) 40 meq BID ORAL 01/02/20 18:00 03/30/20 09:59 01/07/20 17:47 Promethazine HCl/ Codeine (Phenergan with Codeine) 5 ml Q6H PRN ORAL cough 01/02/20 18:06 01/29/20 18:05 Theophylline (Rigoberto-Dur) 100 mg EVERY 12 HOURS ORAL 01/02/20 21:00 03/29/20 20:59 01/07/20 09:14 Assessment/Plan Assessment/Plan ASSESSMENT Acute COPD exacerbation Acute bronchitis Viral syndrome/ Suspected ID- - ruled out Emphysema Chest pain-pleuritic vs MS Chronic back pain History of CVA Hypertension Tobacco dependency History of cocaine abuse Anemia Homelessness PLAN OF CARE MS floor O2 titrate to keep sat >92% , HHN IV steroids and taper SCX -Klebsiella BCX 12/29 - NGTD COVID-19 12/29- not detected, fup with 2 nd result-pt declined isolation was dc as epr ID recs as pt remains afebrile DVT prophylaxis s/p emp abx CXR 01/05 no acute CP pathology trial of theophylline antitussive prn encourage to continue abstinence from smoking Venous Duplex BLE pain management prn, urine tox NGT monitor volumes, cardiorenal parameters, continue maintenance dose of Lasix trop NGT, ECG no acute ischemic changes ECHO with pEF 60% and evidence of mod pulm HTN BP management with current regimen and optimize as needed pain management CP likely pleuritic due to COPD exacerbation vs MS, as per cardio admits to prior fall will check X ray of ribs fall precautions continue work with PT monitor H&H with goal to keep Hgb >7 anemia w/up c/w anemia of chronic disease supportive care case discussed and evaluated by supervising physician Mariana Canada NP Jan 08, 2020 08:17
[2020-01-08] MEDS: Solu-MEDROL 125mg Inj IV SCH (08:32)
[2020-01-08] MEDS: Memantine 5 MG TAB ORAL SCH (08:52)
[2020-01-08] MEDS: Theophylline ER 100mg ORAL SCH ×2 (08:52→20:05)
[2020-01-08] MEDS: Aspirin EC 81mg tab ORAL SCH (08:52)
[2020-01-08] MEDS: Docusate 100mg cap ORAL SCH ×3 (08:56→17:08)
[2020-01-08] MEDS: Heparin 5000 units/ml inj SUBQ SCH ×2 (08:56→20:09)
--- NOTE | 2020-01-08 11:33 | General Progress Note ---
Assessment/Plan Problem List: (1) COPD (chronic obstructive pulmonary disease) ICD Codes: J44.9 - Chronic obstructive pulmonary disease, unspecified SNOMED: 84106934 Qualifiers: Qualified Codes: J44.9 - Chronic obstructive pulmonary disease, unspecified (2) Electrolyte imbalance ICD Codes: E87.8 - Other disorders of electrolyte and fluid balance, not elsewhere classified SNOMED: 383934682 (3) Hypoxia ICD Codes: R09.02 - Hypoxemia SNOMED: 505737075 (4) HTN (hypertension) ICD Codes: I10 - Essential (primary) hypertension SNOMED: 72394354 (5) Acute exacerbation of chronic obstructive airways disease ICD Codes: J44.1 - Acute exacerbation of chronic obstructive airways disease SNOMED: 871455863 (6) Chronic back pain ICD Codes: G89.29 - Other chronic pain; M54.9 - Chronic back pain SNOMED: 054031008 (7) History of CVA (cerebrovascular accident) ICD Codes: Z86.73 - History of stroke SNOMED: 199146169 (8) Acute and chronic respiratory failure ([id number]) ICD Codes: J96.20 - Acute and chronic respiratory failure, unspecified whether with hypoxia or hypercapnia SNOMED: 33909415 (9) DJD (degenerative joint disease) ICD Codes: M19.90 - Unspecified osteoarthritis, unspecified site SNOMED: 675054092 (10) Tobacco dependence ICD Codes: F17.200 - Nicotine dependence, unspecified, uncomplicated SNOMED: 75370773 Status: stable, progressing Assessment/Plan: copd exacerbation hypoxia supportive rx cva htn djd afebrile Subjective ROS Limited/Unobtainable: Yes Allergies: Coded Allergies: No Known Allergies (Unverified , 08/14/19) Objective Last 24 Hour Vital Signs Date Time Temp Pulse Resp B/P (MAP) Pulse Ox O2 Delivery O2 Flow Rate FiO2 01/08/20 09:00 Room Air 01/08/20 08:00 98.4 96 20 138/85 (102) 99 01/08/20 06:59 78 134/77 01/08/20 06:00 134/77 01/08/20 04:00 97.6 78 20 134/77 (96) 98 01/08/20 01:13 86 20 100 Room Air 21 73 18 97 01/08/20 01:12 165/80 01/08/20 00:00 98.7 87 18 148/88 (108) 95 01/07/20 22:00 130/83 01/07/20 21:32 81 130/83 01/07/20 21:00 Room Air 01/07/20 20:24 81 16 96 Room Air 21 01/07/20 20:00 97.8 92 18 130/83 (99) 95 01/07/20 16:00 98.2 92 20 145/86 (105) 95 01/07/20 14:00 103 123/70 01/07/20 14:00 123/70 01/07/20 13:44 103 21 100 Nasal Cannula 2.0 28 102 23 97 01/07/20 12:00 98.3 81 19 123/70 (87) 99 Intake and Output 01/07/20 01/08/20 19:00 07:00 Intake Total 1100 ml 400 ml Balance 1100 ml 400 ml Intake Oral 1100 ml 400 ml # Voids 4 3 # Bowel Movements 1 Laboratory Tests 01/08/20 07:00: Urine Color Pale yellow, Urine Appearance Clear, Urine pH 6.5, Urine Specific [place] 1.010, Urine Protein Negative, Urine Glucose (UA) Negative, Urine Ketones Negative, Urine Blood Negative, Urine Nitrite Negative, Urine Bilirubin Negative, Urine Urobilinogen Normal, Urine Leukocyte Esterase Negative Height (Feet): 6 Height (Inches): 2.00 Weight (Pounds): 170 Dorothy Watts MD Jan 08, 2020 11:33
[2020-01-08 11:58] VITALS: BP 124/75
--- NOTE | 2020-01-08 14:09 | Nephrology Progress Note ---
Assessment/Plan Problem List: (1) Electrolyte imbalance (2) Hypokalemia (3) Acute exacerbation of chronic obstructive airways disease (4) History of cocaine abuse (5) HTN (hypertension) Assessment This 79-year-old male is admitted with hypoxia, and leg swelling Renal impression: Hypokalemia, unclear etiology. No definite history of diarrhea given by the patient. No diuretic on the list of medications. Hypomagnesemia. Other conditions: Exacerbation of COPD, acute bronchitis, suspected COVID-19 infection Elevated lactate acid Patient is chronic smoker History of cocaine and marijuana abuse Hypertension Chronic back pain History of CVA Anemia Homelessness . Plan Remains stable from renal standpoint of view Potassium supplement as needed Start clonidine for blood pressure with parameters. Check chemistry panel as needed Continue per pulmonary management, pulmonary toilet, steroids, aim to taper as possible, per pulmonary Potassium and magnesium supplement as needed. Monitor renal parameters and electrolytes. Keep the blood pressure and blood sugar in check. Per orders. Subjective ROS Limited/Unobtainable: No Constitutional: Reports: malaise Objective Objective Last 24 Hour Vital Signs Date Time Temp Pulse Resp B/P (MAP) Pulse Ox O2 Delivery O2 Flow Rate FiO2 01/08/20 11:58 98.2 74 20 124/75 (91) 98 01/08/20 09:00 Room Air 01/08/20 08:00 98.4 96 20 138/85 (102) 99 01/08/20 06:59 78 134/77 01/08/20 06:00 134/77 01/08/20 04:00 97.6 78 20 134/77 (96) 98 01/08/20 01:13 86 20 100 Room Air 21 73 18 97 01/08/20 01:12 165/80 01/08/20 00:00 98.7 87 18 148/88 (108) 95 01/07/20 22:00 130/83 01/07/20 21:32 81 130/83 01/07/20 21:00 Room Air 01/07/20 20:24 81 16 96 Room Air 21 01/07/20 20:00 97.8 92 18 130/83 (99) 95 01/07/20 16:00 98.2 92 20 145/86 (105) 95 Intake and Output 01/07/20 01/08/20 19:00 07:00 Intake Total 1100 ml 400 ml Balance 1100 ml 400 ml Intake Oral 1100 ml 400 ml # Voids 4 3 # Bowel Movements 1 Laboratory Tests 01/08/20 07:00: Urine Color Pale yellow, Urine Appearance Clear, Urine pH 6.5, Urine Specific [place] 1.010, Urine Protein Negative, Urine Glucose (UA) Negative, Urine Ketones Negative, Urine Blood Negative, Urine Nitrite Negative, Urine Bilirubin Negative, Urine Urobilinogen Normal, Urine Leukocyte Esterase Negative Height (Feet): 6 Height (Inches): 2.00 Weight (Pounds): 170 General Appearance: no apparent distress Objective No change Micky Ivy MD Jan 08, 2020 14:08
[2020-01-08] MEDS: HYDROcodone/Acetamin 5/325 tab ORAL PRN (15:49)
[2020-01-08 16:00] VITALS: BP 136/79
[2020-01-08] MEDS ORDERED: LORazepam 0.5mg tab ORAL PRN (17:15)
--- NOTE | 2020-01-08 19:14 | NUR ---
HAND-OFF: Report given to Cindy.
[2020-01-08 20:00] VITALS: BP 141/82
--- NOTE | 2020-01-08 20:00 | NUR ---
NURSE NOTES: RECEIVED PATIENT LYING IN BED, AWAKE, ALERT/ORIENTED X4, ABLE TO EFFECTIVELY VERBALIZE NEEDS, DENIES PAIN. NO SIGNS AND SYMPTOMS OF ACUTE CARDIO RESPIRATORY DISTRESS/SHORTNESS OF BREATH, DENIES CHEST PAIN, NO PERIPHERAL EDEMA NOTED. IV INTACT, NO REDNESS/SWELLING NOTED TO SITE. NO REPORT OF GI DISCOMFORT, NO N/V/D. SIDE RAIL UP X2 FOR MOBILITY. BED IN LOWEST POSITION FOR SAFETY, ENCOURAGED PATIENT TO UTILIZE CALL LIGHT FOR ASSISTANCE, VERBALIZED UNDERSTANDING. DC PLANNING ONGOING. CONTINUE WITH CURRENT PLAN OF CARE. NAD.
--- NOTE | 2020-01-08 20:30 | Progress Note ---
DATE: 01/08/2020 SUBJECTIVE: A 79-year-old male patient. The patient came to the hospital. The patient has COPD, hypokalemia, edema, hypoxia, chronic back pain, degenerative joint disease, respiratory insufficiency decline in cognition and altered mental status. That is why his attending has requested daily psychiatric consultation. DIAGNOSIS: Major depressive disorder, mild, recurrent with psychotic features, rule out dementia with psychosis. PLAN: Treat this patient with a medication regimen consisting of Namenda 5 mg daily and Remeron 7.5 mg nightly, and 20 minutes of cognitive behavioral therapy will help him identify automatic negative thoughts and help to convert those negative thoughts to more positive thoughts to reduce depression, anxiety, and mood lability. In the hospital, we will continue him on Ativan 0.5 mg every 6 hours p.r.n. anxiety and agitation. The patient continued to be followed by Psychiatry consult. Twenty minutes of cognitive behavioral therapy to help him identify his automatic negative thoughts and convert his negative thoughts to more positive thoughts to reduce depression, anxiety, and mood lability. The patient was seen and assessed at bedside. The patient continued to be followed throughout hospital course. Chart was reviewed. Discussed with staff. Seen and assessed at bedside. Misha Bird M.D. DR: RADHA JOB#: [id number] CC:
--- NOTE | 2020-01-08 23:00 | NUR ---
NURSE NOTES: SACRAL/BILATERAL FEET WOUND CARE, PICTURES TAKEN AND UPLOADED TO CHART.
[2020-01-09] VITALS: BP 139/76
--- NOTE | 2020-01-09 00:28 | NUR ---
NURSE NOTES: RESTING WELL ON ROUNDS, NAD.
[2020-01-09 04:00] VITALS: BP 143/72
--- NOTE | 2020-01-09 06:17 | NUR ---
NURSE NOTES: RESTED WELL, NO SIGNIFICANT CHANGE OF CONDITION NOTED THROUGHOUT THE NIGHT. SAFETY MAINTAINED. NAD.
[2020-01-09] MEDS: dilTIAZem HCl 60mg tab ORAL SCH ×3 (06:27→21:32)
--- NOTE | 2020-01-09 06:31 | NUR ---
NURSE NOTES: NON COMPLIANT WITH PLAN OF CARE, BECAME VERY BELLIGERENT, HOSTILE, CURSING WHEN REMINDED ABOUT STOOL SPECIMEN.
[2020-01-09] MEDS: Albuterol/Ipratropium 3ml neb HHN PRN ×2 (06:57→11:54)
--- NOTE | 2020-01-09 07:06 | NUR ---
HAND-OFF: Report given to OLIVER BLAND.
--- NOTE | 2020-01-09 07:35 | NUR ---
NURSE NOTES: RECEIVED REPORT FROM ALINA. PATIENT LYING IN BED, HOB ELEVATED. RESTING CALM AND COMFORTABLE. AWAKE, ALERT/ORIENTED X4, ABLE TO VERBALIZE NEEDS. APPEARED TO BE COMPULSIVE AND DISRUPTIVE @ TIMES. DENIES PAIN/DISCOMFORT NOTED. NO SIGNS AND SYMPTOMS OF ACUTE CARDIO-RESPIRATORY DISTRESS/SHORTNESS OF BREATH, DENIES CHEST PAIN, NO PERIPHERAL EDEMA NOTED. IV INTACT, NO REDNESS/SWELLING NOTED TO SITE. NO REPORT OF GI DISCOMFORT, NO N/V/D. SIDE RAILS UP X2 FOR MOBILITY. BED IN LOWEST POSITION FOR SAFETY, ENCOURAGED PATIENT TO UTILIZE CALL LIGHT FOR ASSISTANCE, VERBALIZED UNDERSTANDING. CONTINUE WITH CURRENT PLAN OF CARE.
[2020-01-09 08:00] VITALS: BP 146/73
[2020-01-09] MEDS: Solu-MEDROL 125mg Inj IV SCH (08:25)
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
[2020-01-09] MEDS: Memantine 5 MG TAB ORAL SCH (08:36)
[2020-01-09] MEDS: Aspirin EC 81mg tab ORAL SCH (08:36)
[2020-01-09] MEDS: Theophylline ER 100mg ORAL SCH ×2 (08:36→20:31)
[2020-01-09] MEDS: Heparin 5000 units/ml inj SUBQ SCH ×2 (08:40→20:36)
[2020-01-09] MEDS: Docusate 100mg cap ORAL SCH ×3 (08:40→17:12)
--- NOTE | 2020-01-09 08:47 | NUR ---
NURSE NOTES: CLARISA MADE AWARE OF PATIENT REFUSING FOR XRAY OF THE RIBS. WILL CONT TO MONITOR.
--- NOTE | 2020-01-09 08:47 | Nephrology Progress Note ---
Assessment/Plan Problem List: (1) Electrolyte imbalance (2) Hypokalemia (3) Acute exacerbation of chronic obstructive airways disease (4) History of cocaine abuse (5) HTN (hypertension) Assessment This 79-year-old male is admitted with hypoxia, and leg swelling Renal impression: Hypokalemia, unclear etiology. No definite history of diarrhea given by the patient. No diuretic on the list of medications. Hypomagnesemia. Other conditions: Exacerbation of COPD, acute bronchitis, suspected COVID-19 infection Elevated lactate acid Patient is chronic smoker History of cocaine and marijuana abuse Hypertension Chronic back pain History of CVA Anemia Homelessness . Plan Remains stable from renal standpoint of view, will check lab tomorrow. Continue per consultants. Potassium supplement as needed Start clonidine for blood pressure with parameters. Check chemistry panel as needed Continue per pulmonary management, pulmonary toilet, steroids, aim to taper as possible, per pulmonary Potassium and magnesium supplement as needed. Monitor renal parameters and electrolytes. Keep the blood pressure and blood sugar in check. Per orders. Subjective ROS Limited/Unobtainable: No Constitutional: Reports: malaise Objective Objective Last 24 Hour Vital Signs Date Time Temp Pulse Resp B/P (MAP) Pulse Ox O2 Delivery O2 Flow Rate FiO2 01/09/20 08:00 97.5 83 19 146/73 (97) 96 01/09/20 06:56 61 20 99 Room Air 21 59 20 98 01/09/20 06:55 59 20 98 Room Air 21 01/09/20 06:27 72 158/92 01/09/20 06:27 158/92 01/09/20 04:00 97.9 75 18 143/72 (95) 96 01/09/20 00:00 98.1 82 18 139/76 (97) 95 01/08/20 22:46 143/89 01/08/20 21:41 94 158/92 01/08/20 21:00 Room Air 01/08/20 20:00 98.7 89 20 141/82 (101) 97 01/08/20 19:50 82 20 100 Room Air 21 80 18 96 01/08/20 19:49 80 16 96 Room Air 21 01/08/20 16:19 98.2 01/08/20 16:00 98.0 82 20 136/79 (98) 98 01/08/20 14:44 81 141/72 01/08/20 14:43 141/72 01/08/20 11:58 98.2 74 20 124/75 (91) 98 01/08/20 09:00 Room Air Intake and Output 01/08/20 01/09/20 19:00 07:00 Intake Total 1660 ml 1920 ml Output Total 1200 ml Balance 1660 ml 720 ml Intake Oral 1660 ml 1920 ml Output Urine Total 1200 ml # Voids 4 Current Medications Medications (Trade) Dose Ordered Sig/Aguila Route PRN Reason Start Time Stop Time Status Last Admin Dose Admin Acetaminophen/ Hydrocodone Bitart ([place] 5/325) 1 tab Q6H PRN ORAL Severe Pain (Pain Scale 7-10) 01/08/20 15:45 01/15/20 15:44 01/08/20 15:49 Albuterol/ Ipratropium (Albuterol/ Ipratropium) 3 ml Q3H PRN HHN Shortness of Breath 01/07/20 16:30 01/12/20 16:29 01/09/20 06:57 Aspirin (Ecotrin) 81 mg DAILY ORAL 01/03/20 09:00 02/16/20 08:59 01/09/20 08:36 Clonidine HCl (Catapres Tab) 0.1 mg EVERY 8 HOURS ORAL 01/02/20 22:00 03/31/20 13:59 01/09/20 06:27 Clonidine HCl (Catapres Tab) 0.1 mg Q4H PRN ORAL bp over 165 syst 01/02/20 18:02 03/30/20 18:01 01/08/20 01:12 Dextrose (Dextrose 50%) 25 ml Q30M PRN IV Hypoglycemia 01/02/20 18:00 03/29/20 12:59 Dextrose (Dextrose 50%) 50 ml Q30M PRN IV Hypoglycemia 01/02/20 18:00 03/29/20 12:59 Diltiazem HCl (Cardizem) 60 mg EVERY 8 HOURS ORAL 01/02/20 22:00 01/31/20 21:59 01/09/20 06:27 Docusate Sodium (Colace) 100 mg THREE TIMES A DAY ORAL 01/02/20 18:00 01/30/20 08:59 01/05/20 08:55 Folic Acid (Folate) 2 mg DAILY ORAL 01/03/20 09:00 01/31/20 08:59 01/09/20 08:43 Furosemide (Lasix) 20 mg DAILY IV 01/03/20 09:00 01/31/20 08:59 01/03/20 09:25 Heparin Sodium (Porcine) (Heparin 5000 units/ml) 5,000 units EVERY 12 HOURS SUBQ 01/02/20 21:00 02/13/20 20:59 01/09/20 08:40 Lorazepam (Ativan) 0.5 mg Q6H PRN ORAL For Anxiety 01/08/20 17:15 01/15/20 17:14 Memantine (Namenda) 5 mg DAILY ORAL 01/03/20 09:00 01/31/20 08:59 01/09/20 08:36 Methylprednisolone Sodium Succinate (Solu-MEDROL) 50 mg DAILY IV 01/09/20 09:00 03/29/20 17:59 01/09/20 08:25 Mirtazapine (Remeron) 7.5 mg BEDTIME ORAL 01/04/20 21:00 04/03/20 20:59 01/08/20 20:06 Nitroglycerin (Ntg) 0.4 mg Q5M X 3 DOSES PRN SL Prn Chest Pain 01/02/20 18:00 01/29/20 12:59 Ondansetron HCl (Zofran) 4 mg Q6H PRN IVP Nausea & Vomiting 01/02/20 18:06 01/29/20 18:05 Pantoprazole (Protonix) 40 mg EVERY 12 HOURS ORAL 01/02/20 21:00 01/29/20 20:59 01/09/20 08:36 Potassium Chloride (K-Dur) 40 meq BID ORAL 01/02/20 18:00 03/30/20 09:59 01/09/20 08:36 Promethazine HCl/ Codeine (Phenergan with Codeine) 5 ml Q6H PRN ORAL cough 01/02/20 18:06 01/29/20 18:05 Theophylline (Rigoberto-Dur) 100 mg EVERY 12 HOURS ORAL 01/02/20 21:00 03/29/20 20:59 01/09/20 08:36 No labs drawn today Height (Feet): 6 Height (Inches): 2.00 Weight (Pounds): 170 Cardiovascular: other - Variable rate Respiratory/Chest: decreased breath sounds Abdomen: distended Objective No change Micky Ivy MD Jan 09, 2020 08:47
--- NOTE | 2020-01-09 08:50 | NUR ---
NURSE NOTES: PATIENT REMINDED FOR STOOL SPECIMEN TO BE COLLECTED. REMAINED REFUSED AND BELLIGERENT. WILL CONT TO MONITOR.
[2020-01-09 11:36] VITALS: BP 148/72
--- NOTE | 2020-01-09 12:44 | Progress Note ---
DATE: 01/09/2020 SUBJECTIVE: This is a 79-year-old male patient. The patient has hypoxia, hypokalemia, , hypertension, anemia, chronic back pain, history of CVA, bronchitis, degenerative joint disease, causing him to have decline in cognition below his baseline and mood lability. That is why, his attending has requested daily psychiatric consultation. MENTAL STATUS EXAMINATION: This is a 79-year-old male. Appearance is disheveled. Attitude, irritable and agitated. Affect, guarded and restricted. Intellect poor. Mood, depressed and anxious. Motor activity, psychomotor agitation. Attention span is poor. Orientation x2. Speech is low volume, slurred. Thought process, disorganized and illogical. Insight and judgment is poor. DIAGNOSIS: Major depressive disorder, mild, recurrent with psychotic features, rule out dementia with psychosis. PLAN: Plan for this patient is to treat him Ativan 0.5 mg every 6 hours p.r.n. anxiety and agitation, Remeron 7.5 mg nightly and also treat him with Namenda 5 mg daily. A 20 minutes of cognitive behavioral therapy will help him identify automatic negative thoughts and help to convert those negative thoughts to more positive thoughts to reduce depression, anxiety, and mood lability. A 20 minutes of cognitive behavioral therapy provided. Chart reviewed. Discussed with staff. Seen and assessed in his room. Misha Bird M.D. DR: AMOL JOB#: [id number] CC:
--- NOTE | 2020-01-09 13:41 | Infectious Diseases Prog Note ---
Assessment/Plan Assessment: Viral syndrome- -12/29 SARS-COV2 pCR neg -Bcx Neg -HIV ab screen, acute hep panel, RPR neg COPD exacerbation Mild hypoxia upon admission- now resolved- now at 2l NC -01/05 CXR: no acute disease -01/01 CXR: Mild linear atelectasis versus scarring in the right lung base, not significantly changed. The lungs otherwise appear clear -12/29 CXR: Basilar atelectasis and scarring. No acute disease. -sp cx K. pna (R amp; otherwise S) Afebrile No leukocytosis Thrombocytopenia/Lymphopenia Lactic acidosis;SP -01/07 u/a neg -u/a neg -Bcx NTD Chronic diarrhea- r.o parasitic infection COPD homelessness (lives in his car) HTN OA DJD HLD chronic back pain CVA smoker cocaine and THC use Plan: -Continue to monitor off abx -01/03 SP Azithromycin #5 -01/02 SP Ceftriaxone #4 -12/30 SP ZOsyn #2 -f/u cx -Monitor CBC/CMP, temperatures -COVID19 isolation and testing; [id number] test- will dc isolation as has remained afebrile, at RA and alternative diagnosis (bacterial bronchitis) -f/u HIV VL -u/a w/ reflex -stool studies Thank you for this consultation. Will continue to follow along with you. Discussed with RN. Subjective Allergies: Coded Allergies: No Known Allergies (Unverified , 08/14/19) afebrile at 2l NC awaiting transfer to Psych unit Objective Last 24 Hour Vital Signs Date Time Temp Pulse Resp B/P (MAP) Pulse Ox O2 Delivery O2 Flow Rate FiO2 01/09/20 11:54 67 20 99 Nasal Cannula 2.0 28 68 20 97 01/09/20 11:36 97.0 88 18 148/72 (97) 97 01/09/20 09:00 Nasal Cannula 2.0 01/09/20 08:00 97.5 83 19 146/73 (97) 96 01/09/20 06:56 61 20 99 Room Air 21 59 20 98 01/09/20 06:55 59 20 98 Room Air 21 01/09/20 06:27 72 158/92 01/09/20 06:27 158/92 01/09/20 04:00 97.9 75 18 143/72 (95) 96 01/09/20 00:00 98.1 82 18 139/76 (97) 95 01/08/20 22:46 143/89 01/08/20 21:41 94 158/92 01/08/20 21:00 Room Air 01/08/20 20:00 98.7 89 20 141/82 (101) 97 01/08/20 19:50 82 20 100 Room Air 21 80 18 96 01/08/20 19:49 80 16 96 Room Air 21 01/08/20 16:19 98.2 01/08/20 16:00 98.0 82 20 136/79 (98) 98 01/08/20 14:44 81 141/72 01/08/20 14:43 141/72 Height (Feet): 6 Height (Inches): 2.00 Weight (Pounds): 170 General Appearance: cachetic - male in NAD HEENT: normocephalic, atraumatic Respiratory: chest wall non-tender, decreased breath sounds, other - isolated rhonchi Cardiovascular: normal peripheral pulses, normal rate Abdomen: normal bowel sounds, soft, non tender Extremities: no edema, pedal pulses normal Skin: no rash 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, alert, oriented x 3, responsive Musculoskeletal: normal muscle bulk Current Medications Medications (Trade) Dose Ordered Sig/Aguila Route PRN Reason Start Time Stop Time Status Last Admin Dose Admin Acetaminophen/ Hydrocodone Bitart ([place] 5/325) 1 tab Q6H PRN ORAL Severe Pain (Pain Scale 7-10) 01/08/20 15:45 01/15/20 15:44 01/08/20 15:49 Albuterol/ Ipratropium (Albuterol/ Ipratropium) 3 ml Q3H PRN HHN Shortness of Breath 01/07/20 16:30 01/12/20 16:29 01/09/20 11:54 Aspirin (Ecotrin) 81 mg DAILY ORAL 01/03/20 09:00 02/16/20 08:59 01/09/20 08:36 Clonidine HCl (Catapres Tab) 0.1 mg EVERY 8 HOURS ORAL 01/02/20 22:00 03/31/20 13:59 01/09/20 06:27 Clonidine HCl (Catapres Tab) 0.1 mg Q4H PRN ORAL bp over 165 syst 01/02/20 18:02 03/30/20 18:01 01/08/20 01:12 Dextrose (Dextrose 50%) 25 ml Q30M PRN IV Hypoglycemia 01/02/20 18:00 03/29/20 12:59 Dextrose (Dextrose 50%) 50 ml Q30M PRN IV Hypoglycemia 01/02/20 18:00 03/29/20 12:59 Diltiazem HCl (Cardizem) 60 mg EVERY 8 HOURS ORAL 01/02/20 22:00 01/31/20 21:59 01/09/20 06:27 Docusate Sodium (Colace) 100 mg THREE TIMES A DAY ORAL 01/02/20 18:00 01/30/20 08:59 01/05/20 08:55 Folic Acid (Folate) 2 mg DAILY ORAL 01/03/20 09:00 01/31/20 08:59 01/09/20 08:43 Furosemide (Lasix) 20 mg DAILY IV 01/03/20 09:00 01/31/20 08:59 01/03/20 09:25 Heparin Sodium (Porcine) (Heparin 5000 units/ml) 5,000 units EVERY 12 HOURS SUBQ 01/02/20 21:00 02/13/20 20:59 01/09/20 08:40 Lorazepam (Ativan) 0.5 mg Q6H PRN ORAL For Anxiety 01/08/20 17:15 01/15/20 17:14 Memantine (Namenda) 5 mg DAILY ORAL 01/03/20 09:00 01/31/20 08:59 01/09/20 08:36 Methylprednisolone Sodium Succinate (Solu-MEDROL) 50 mg DAILY IV 01/09/20 09:00 03/29/20 17:59 01/09/20 08:25 Mirtazapine (Remeron) 7.5 mg BEDTIME ORAL 01/04/20 21:00 04/03/20 20:59 01/08/20 20:06 Nitroglycerin (Ntg) 0.4 mg Q5M X 3 DOSES PRN SL Prn Chest Pain 01/02/20 18:00 01/29/20 12:59 Ondansetron HCl (Zofran) 4 mg Q6H PRN IVP Nausea & Vomiting 01/02/20 18:06 01/29/20 18:05 Pantoprazole (Protonix) 40 mg EVERY 12 HOURS ORAL 01/02/20 21:00 01/29/20 20:59 01/09/20 08:36 Potassium Chloride (K-Dur) 40 meq BID ORAL 01/02/20 18:00 03/30/20 09:59 01/09/20 08:36 Promethazine HCl/ Codeine (Phenergan with Codeine) 5 ml Q6H PRN ORAL cough 01/02/20 18:06 01/29/20 18:05 Theophylline (Rigoberto-Dur) 100 mg EVERY 12 HOURS ORAL 01/02/20 21:00 03/29/20 20:59 01/09/20 08:36 Isabel Schultz M.D. Jan 09, 2020 13:41
--- NOTE | 2020-01-09 15:00 | NUR ---
NURSE NOTES: ABLE TO SEND STOOL SPECIMEN TO LAB.
[2020-01-09 15:57] VITALS: BP 155/87
--- NOTE | 2020-01-09 19:08 | NUR ---
HAND-OFF: Report given to ZULAY.
[2020-01-09 20:00] VITALS: BP 123/70
--- NOTE | 2020-01-09 20:00 | NUR ---
NURSE NOTES: RECEIVED PATIENT LYING IN BED, AWAKE, ALERT/ORIENTED X3, FORGETFUL/CONFUSED, ABLE TO VERBALIZE NEEDS, DENIES PAIN. NO SIGNS AND SYMPTOMS OF ACUTE CARDIO RESPIRATORY DISTRESS/SHORTNESS OF BREATH, DENIES CHEST PAIN, EDEMA SUBSIDING TO BILATERAL LOWER EXTREMITIES, ENCOURAGED ELEVATION/NON COMPLIANT. DENIES GI DISCOMFORT, NO N/V/D. SIDE RAILS UP X2 FOR MOBILITY, BED IN LOWEST POSITION FOR SAFETY, ENCOURAGED PATIENT TO UTILIZE CALL LIGHT FOR ASSISTANCE, VERBALIZED UNDERSTANDING, CONTINUE WITH CURRENT PLAN OF CARE. NAD.
--- NOTE | 2020-01-09 21:06 | General Progress Note ---
Assessment/Plan Problem List: (1) COPD (chronic obstructive pulmonary disease) ICD Codes: J44.9 - Chronic obstructive pulmonary disease, unspecified SNOMED: 49960085 Qualifiers: Qualified Codes: J44.9 - Chronic obstructive pulmonary disease, unspecified (2) Electrolyte imbalance ICD Codes: E87.8 - Other disorders of electrolyte and fluid balance, not elsewhere classified SNOMED: 793239347 (3) Hypoxia ICD Codes: R09.02 - Hypoxemia SNOMED: 754358358 (4) HTN (hypertension) ICD Codes: I10 - Essential (primary) hypertension SNOMED: 42356578 (5) Acute exacerbation of chronic obstructive airways disease ICD Codes: J44.1 - Acute exacerbation of chronic obstructive airways disease SNOMED: 347253493 (6) Chronic back pain ICD Codes: G89.29 - Other chronic pain; M54.9 - Chronic back pain SNOMED: 590225539 (7) History of CVA (cerebrovascular accident) ICD Codes: Z86.73 - History of stroke SNOMED: 100003091 (8) Acute and chronic respiratory failure (yfibv-dh-jsosbon) ICD Codes: J96.20 - Acute and chronic respiratory failure, unspecified whether with hypoxia or hypercapnia SNOMED: 07430723 (9) DJD (degenerative joint disease) ICD Codes: M19.90 - Unspecified osteoarthritis, unspecified site SNOMED: 543613790 (10) Tobacco dependence ICD Codes: F17.200 - Nicotine dependence, unspecified, uncomplicated SNOMED: 52588578 Status: stable, progressing Assessment/Plan: copd exacerbation no wheezing afebrile back pain vitals stable htn wnl Subjective ROS Limited/Unobtainable: Yes Allergies: Coded Allergies: No Known Allergies (Unverified , 08/14/19) Objective Last 24 Hour Vital Signs Date Time Temp Pulse Resp B/P (MAP) Pulse Ox O2 Delivery O2 Flow Rate FiO2 01/09/20 20:00 97.7 85 22 123/70 (87) 97 01/09/20 18:45 104 20 97 Room Air 21 01/09/20 15:57 98.6 107 19 155/87 (109) 100 01/09/20 14:29 67 148/72 01/09/20 14:29 148/72 01/09/20 11:54 67 20 99 Nasal Cannula 2.0 28 68 20 97 01/09/20 11:36 97.0 88 18 148/72 (97) 97 01/09/20 09:00 Nasal Cannula 2.0 01/09/20 08:00 97.5 83 19 146/73 (97) 96 01/09/20 06:56 61 20 99 Room Air 21 59 20 98 01/09/20 06:55 59 20 98 Room Air 21 01/09/20 06:27 72 158/92 01/09/20 06:27 158/92 01/09/20 04:00 97.9 75 18 143/72 (95) 96 01/09/20 00:00 98.1 82 18 139/76 (97) 95 01/08/20 22:46 143/89 01/08/20 21:41 94 158/92 Intake and Output 01/08/20 01/09/20 19:00 07:00 Intake Total 1660 ml 1920 ml Output Total 1200 ml Balance 1660 ml 720 ml Intake Oral 1660 ml 1920 ml Output Urine Total 1200 ml # Voids 4 Height (Feet): 6 Height (Inches): 2.00 Weight (Pounds): 170 Dorothy Watts MD Jan 09, 2020 21:06
--- NOTE | 2020-01-09 21:46 | NUR ---
NURSE NOTES: SPOKE TO FIORELLA IN LABORATORY, WILL ADD MICROSPORIDIUM TO STOOL COLLECTED TODAY BY AM NURSE. CN AWARE.
[2020-01-10] VITALS: BP 143/72
--- NOTE | 2020-01-10 02:55 | NUR ---
NURSE NOTES:RESTING WELL ON ROUNDS, NO SIGNS OF DISTRESS.
[2020-01-10 04:00] VITALS: BP 175/78
--- NOTE | 2020-01-10 04:00 | NUR ---
NURSE NOTES: BLOOD PRESSURE 175/78, ASYMPTOMATIC, REFUSED PRN CLONIDINE, STATED "I FEEL FINE, I DON'T TAKE THAT MEDICATION". PATIENT WAS INFORMED OF SIGNIFICANT BENEFITS AND RISKS OF DECLINING OR REFUSING MEDICATION, PATIENT VERBALIZED UNDERSTANDING.
[2020-01-10] MEDS: dilTIAZem HCl 60mg tab ORAL SCH ×3 (06:00→21:01)
--- NOTE | 2020-01-10 06:17 | NUR ---
NURSE NOTES: BLOOD PRESSURE 166/88, ASSESSED FOR SIGNS AND SYMPTOMS OF HYPERTENSION, NONE NOTED, PATIENT REFUSED AM MEDICATION (CLONIDINE AND CARDIZEM), CONTINUE TO STATE "I DON'T TAKE THAT MEDICATION, I AM NOT A TAI PIG, I KNOW MY MEDICATION"; CONTINUE TO REINFORCE SIGNIFICANT BENEFITS AND RISKS OF DECLINING/REFUSING MEDICATION, PATIENT AGGRESSIVELY VERBALIZED UNDERSTANDING.
--- NOTE | 2020-01-10 07:29 | NUR ---
HAND-OFF: Report given to NICKOLAS CANTU.
[2020-01-10] MEDS: Albuterol/Ipratropium 3ml neb HHN PRN ×2 (07:34→13:04)
--- NOTE | 2020-01-10 07:46 | NUR ---
NURSE NOTES: pt is sitting up in bed and eating breakfast; tolerating meals well, HOB elevated. denies any pain and discomfort. no acute distress noted at this time, call light is within reach, will continue to follow plan of care.
[2020-01-10 08:00] VITALS: BP 169/84
[2020-01-10] MEDS: Heparin 5000 units/ml inj SUBQ SCH ×2 (08:39→20:53)
[2020-01-10] MEDS: Memantine 5 MG TAB ORAL SCH (09:00)
[2020-01-10] MEDS: Solu-MEDROL 125mg Inj IV SCH (09:00)
[2020-01-10] MEDS: Docusate 100mg cap ORAL SCH ×3 (09:00→18:51)
[2020-01-10] MEDS: Theophylline ER 100mg ORAL SCH ×2 (09:00→20:52)
[2020-01-10] MEDS: Aspirin EC 81mg tab ORAL SCH (09:00)
--- NOTE | 2020-01-10 09:05 | NUR ---
NURSE NOTES: Patient refuses all AM medications except heparin. Encouraged patient to take his other medications because per AM vital signs BP is 169/84, patient states "I don't want those medications," "Give them to me," "I will take them when I want to or you get out of my room." Educated patient the benefit and purpose of each medication; patient remains non-compliant. Patient yelled at nurse to leave his room, will continue to observe patient closely.
--- NOTE | 2020-01-10 10:30 | Progress Note ---
DATE: 01/10/2020 SUBJECTIVE: This is a 79-year-old male with hypoxia. He has altered mental status, confusion, and decline in cognition below his baseline. That is why, his attending has requested daily psychiatric consultation. MENTAL STATUS EXAMINATION: This is a 79-year-old male. Appearance is disheveled. Attitude, irritable and agitated. Affect is labile. Intellect, poor. Mood, depressed and anxious. Motor activity, psychomotor agitation. Attention span is poor. Orientation x2. Speech is low volume and slurred. Thought process, disorganized and illogical. Insight and judgment is poor. DIAGNOSIS: Major depressive disorder, severe, recurrent with psychotic features; rule out dementia with psychosis. PLAN: Continue titrating up on this patient's medications to stabilize his mood. The patient had 20 minutes of cognitive behavioral therapy to help the patient identify his automatic negative thoughts and help convert those negative thoughts to more positive thoughts to reduce depression, anxiety, and mood lability. Chart reviewed. Discussed with staff. Seen and assessed at bedside. Misha Bird M.D. DR: TRANG JOB#: [id number] CC:
--- NOTE | 2020-01-10 10:41 | Nephrology Progress Note ---
Assessment/Plan Problem List: (1) Electrolyte imbalance (2) Hypokalemia (3) Acute exacerbation of chronic obstructive airways disease (4) History of cocaine abuse (5) HTN (hypertension) Assessment This 79-year-old male is admitted with hypoxia, and leg swelling Renal impression: Hypokalemia, unclear etiology. No definite history of diarrhea given by the patient. No diuretic on the list of medications. Hypomagnesemia. Other conditions: Exacerbation of COPD, acute bronchitis, suspected COVID-19 infection Elevated lactate acid Patient is chronic smoker History of cocaine and marijuana abuse Hypertension Chronic back pain History of CVA Anemia Homelessness . Plan Remains stable from renal standpoint of view, will check labs today. Continue per consultants. Potassium supplement as needed Start clonidine for blood pressure with parameters. Check chemistry panel as needed Continue per pulmonary management, pulmonary toilet, steroids, aim to taper as possible, per pulmonary Potassium and magnesium supplement as needed. Monitor renal parameters and electrolytes. Keep the blood pressure and blood sugar in check. Per orders. Subjective ROS Limited/Unobtainable: No Constitutional: Reports: malaise Objective Objective Last 24 Hour Vital Signs Date Time Temp Pulse Resp B/P (MAP) Pulse Ox O2 Delivery O2 Flow Rate FiO2 01/10/20 08:00 97.7 76 21 169/84 (112) 99 01/10/20 07:44 117 20 97 Room Air 21 96 20 94 01/10/20 07:00 96 20 95 Room Air 21 01/10/20 06:00 92 166/88 01/10/20 06:00 166/88 01/10/20 04:00 96.8 72 20 175/78 (110) 98 01/10/20 00:00 97.1 80 20 143/72 (95) 96 01/09/20 21:33 148/72 01/09/20 21:32 75 148/72 01/09/20 21:00 Nasal Cannula 2.0 01/09/20 20:00 97.7 85 22 123/70 (87) 97 01/09/20 18:45 104 20 97 Room Air 21 01/09/20 15:57 98.6 107 19 155/87 (109) 100 01/09/20 14:29 67 148/72 01/09/20 14:29 148/72 01/09/20 11:54 67 20 99 Nasal Cannula 2.0 28 68 20 97 01/09/20 11:36 97.0 88 18 148/72 (97) 97 Intake and Output 01/09/20 01/10/20 19:00 07:00 Intake Total 720 ml 960 ml Output Total 2100 ml 800 ml Balance -1380 ml 160 ml Intake Oral 720 ml 960 ml Output Urine Total 2100 ml 800 ml # Bowel Movements 2 No labs drawn today yet Height (Feet): 6 Height (Inches): 2.00 Weight (Pounds): 170 General Appearance: no apparent distress Cardiovascular: tachycardia, other - Variable Respiratory/Chest: decreased breath sounds Objective No change Micky Ivy MD Jan 10, 2020 10:41
--- NOTE | 2020-01-10 10:57 | NUR ---
RD ASSESSMENT & RECOMMENDATIONS SEE CARE ACTIVITY FOR COMPLETE ASSESSMENT DAILY ESTIMATED NEEDS: Needs based on Cardiac, pulmonary, wound / 82kg 25-35 kcals/kg 0229-4154 total kcals 1.25-1.5 g protein/kg 103-123 g total protein Per MD, elev BNP mL/kg . total fluid mLs NUTRITION DIAGNOSIS: Decreased sodium needs R/T cardiac hx as evidenced by elev BNP (3214), elev BP w/ h/o HTN. CURRENT DIET:REGULAR PO DIET RECOMMENDATIONS: Low Sodium/ texture as tolerated ADDITIONAL RECOMMENDATIONS: * Updated standing weight - bed without bedscale * Rec bed side BG w/ solumedrol- pt refused solumedrol this AM * Check lytes, replete as needed * Wound healing: add MVI x 1, Vit C 250mg QD Add PATT BID * Monitor for continued good PO intake
[2020-01-10 11:41] LABS: ALANINE AMINOTRANSFERASE 56 U/L (12-78); ALBUMIN 3.3 G/DL (3.4-5.0); ALBUMIN/GLOBULIN RATIO 1.3 (1.0-2.7); ALKALINE PHOSPHATASE 35 U/L (46-116); ANION GAP 7 mmol/L (5-15); ASPARTATE AMINO TRANSFERASE 24 U/L (15-37); BILIRUBIN,TOTAL 0.3 MG/DL (0.2-1.0); BLOOD UREA NITROGEN 28 mg/dL (7-18); CALCIUM 8.8 MG/DL (8.5-10.1); CARBON DIOXIDE 32 MMOL/L (21-32); CHLORIDE 98 MMOL/L (98-107); PHOSPHORUS 3.9 MG/DL (2.5-4.9); POTASSIUM 4.5 MMOL/L (3.5-5.1); SODIUM 137 MMOL/L (136-145)
[2020-01-10 12:00] VITALS: BP 152/86
--- NOTE | 2020-01-10 12:50 | Pulmonology Progress Note ---
Subjective ROS Limited/Unobtainable: No Interval Events: still short of breath. calaims that he can't walk any more. Allergies: Coded Allergies: No Known Allergies (Unverified , 08/14/19) Objective Last 24 Hour Vital Signs Date Time Temp Pulse Resp B/P (MAP) Pulse Ox O2 Delivery O2 Flow Rate FiO2 01/10/20 12:00 98.0 78 20 152/86 (108) 98 01/10/20 09:00 Nasal Cannula 2.0 01/10/20 08:00 97.7 76 21 169/84 (112) 99 01/10/20 07:44 117 20 97 Room Air 21 96 20 94 01/10/20 07:00 96 20 95 Room Air 21 01/10/20 06:00 92 166/88 01/10/20 06:00 166/88 01/10/20 04:00 96.8 72 20 175/78 (110) 98 01/10/20 00:00 97.1 80 20 143/72 (95) 96 01/09/20 21:33 148/72 01/09/20 21:32 75 148/72 01/09/20 21:00 Nasal Cannula 2.0 01/09/20 20:00 97.7 85 22 123/70 (87) 97 01/09/20 18:45 104 20 97 Room Air 21 01/09/20 15:57 98.6 107 19 155/87 (109) 100 01/09/20 14:29 67 148/72 01/09/20 14:29 148/72 Intake and Output 01/09/20 01/10/20 19:00 07:00 Intake Total 720 ml 960 ml Output Total 2100 ml 800 ml Balance -1380 ml 160 ml Intake Oral 720 ml 960 ml Output Urine Total 2100 ml 800 ml # Bowel Movements 2 General Appearance: cachetic - male in NAD HEENT: normocephalic, atraumatic Respiratory: chest wall non-tender, decreased breath sounds, other - isolated rhonchi Cardiovascular: normal peripheral pulses, normal rate Abdomen: normal bowel sounds, soft, non tender Extremities: no edema, pedal pulses normal Skin: no rash Neurologic: [place] II-XII grossly normal, alert, oriented x 3, responsive Musculoskeletal: normal muscle bulk Microbiology Date/Time Source Procedure Growth Status 01/09/20 12:28 Stool Stool Culture Pending Resulted 01/09/20 12:28 Stool Clostridium difficile Toxin Assay - Final Resulted Laboratory Tests 01/10/20 11:05: Sodium Level 137, Potassium Level 4.5, Chloride Level 98, Carbon Dioxide Level 32, Anion Gap 7, Blood Urea Nitrogen 28H, Creatinine 1.0, Estimat Glomerular Filtration Rate > 60, Glucose Level 93, Calcium Level 8.8, Phosphorus Level 3.9 , Magnesium Level 2.1, Total Bilirubin 0.3, Aspartate Amino Transf (AST/SGOT) 24 , Alanine Aminotransferase (ALT/SGPT) 56, Alkaline Phosphatase 35L, Total Protein 5.8L, Albumin 3.3L, Globulin 2.5, Albumin/Globulin Ratio 1.3 Current Medications Medications (Trade) Dose Ordered Sig/Aguila Route PRN Reason Start Time Stop Time Status Last Admin Dose Admin Acetaminophen/ Hydrocodone Bitart ([place] 5/325) 1 tab Q6H PRN ORAL Severe Pain (Pain Scale 7-10) 01/08/20 15:45 01/15/20 15:44 01/08/20 15:49 Albuterol/ Ipratropium (Albuterol/ Ipratropium) 3 ml Q3H PRN HHN Shortness of Breath 01/07/20 16:30 01/12/20 16:29 01/10/20 07:34 Aspirin (Ecotrin) 81 mg DAILY ORAL 01/03/20 09:00 02/16/20 08:59 01/09/20 08:36 Clonidine HCl (Catapres Tab) 0.1 mg EVERY 8 HOURS ORAL 01/02/20 22:00 03/31/20 13:59 01/09/20 21:33 Clonidine HCl (Catapres Tab) 0.1 mg Q4H PRN ORAL bp over 165 syst 01/02/20 18:02 03/30/20 18:01 01/08/20 01:12 Dextrose (Dextrose 50%) 25 ml Q30M PRN IV Hypoglycemia 01/02/20 18:00 03/29/20 12:59 Dextrose (Dextrose 50%) 50 ml Q30M PRN IV Hypoglycemia 01/02/20 18:00 03/29/20 12:59 Diltiazem HCl (Cardizem) 60 mg EVERY 8 HOURS ORAL 01/02/20 22:00 01/31/20 21:59 01/09/20 21:32 Docusate Sodium (Colace) 100 mg THREE TIMES A DAY ORAL 01/02/20 18:00 01/30/20 08:59 01/05/20 08:55 Folic Acid (Folate) 2 mg DAILY ORAL 01/03/20 09:00 01/31/20 08:59 01/09/20 08:43 Furosemide (Lasix) 20 mg DAILY IV 01/03/20 09:00 01/31/20 08:59 01/03/20 09:25 Heparin Sodium (Porcine) (Heparin 5000 units/ml) 5,000 units EVERY 12 HOURS SUBQ 01/02/20 21:00 02/13/20 20:59 01/10/20 08:39 Lorazepam (Ativan) 0.5 mg Q6H PRN ORAL For Anxiety 01/08/20 17:15 01/15/20 17:14 Memantine (Namenda) 5 mg DAILY ORAL 01/03/20 09:00 01/31/20 08:59 01/09/20 08:36 Methylprednisolone Sodium Succinate (Solu-MEDROL) 50 mg DAILY IV 01/09/20 09:00 03/29/20 17:59 01/09/20 08:25 Mirtazapine (Remeron) 7.5 mg BEDTIME ORAL 01/04/20 21:00 04/03/20 20:59 01/09/20 20:31 Nitroglycerin (Ntg) 0.4 mg Q5M X 3 DOSES PRN SL Prn Chest Pain 01/02/20 18:00 01/29/20 12:59 Ondansetron HCl (Zofran) 4 mg Q6H PRN IVP Nausea & Vomiting 01/02/20 18:06 01/29/20 18:05 Pantoprazole (Protonix) 40 mg EVERY 12 HOURS ORAL 01/02/20 21:00 01/29/20 20:59 01/09/20 20:31 Potassium Chloride (K-Dur) 40 meq BID ORAL 01/02/20 18:00 03/30/20 09:59 01/09/20 17:12 Promethazine HCl/ Codeine (Phenergan with Codeine) 5 ml Q6H PRN ORAL cough 01/02/20 18:06 01/29/20 18:05 Theophylline (Rigoberto-Dur) 100 mg EVERY 12 HOURS ORAL 01/02/20 21:00 03/29/20 20:59 01/09/20 20:31 Assessment/Plan Problems: (1) Acute exacerbation of chronic obstructive airways disease (2) Acute bronchitis (3) Pulmonary nodule (4) Emphysema (5) Chronic back pain (6) History of CVA (cerebrovascular accident) (7) History of cocaine abuse (8) Tobacco dependence Assessment/Plan still short of breath PT ordered again, since pt claims that he can't walk any more getting his nebulizer treatment now doing better respiratory treatment steroids, taper slowly, check sputum, Klebsiella in sputum, resistant to Ampicillin titrate fio2 to sat of 92% diuretics prn, Lasix qd, watch electrolytes dvt prophylaxis. Farhan Ortega MD Jan 10, 2020 12:50
--- NOTE | 2020-01-10 14:10 | NUR ---
CASE MANAGEMENT:REVIEW SI;ACUTE BACTERIAL BRONCHITIS. COPD W/ACUTE EXACERBATION. VIRAL SYNDROME. 98.0 117 21 169/84 94% ON RA BUN 28 IS;PREDNISONE PO QD DUO NEB HHN Q3 PRN ASA PO QD LASIX IV QD HEPARIN SUBQ Q12 PROTONIX PO Q12 K+DUR PO BID MED SURG STATUS DCP;PATIENT IS HOMELESS
[2020-01-10 16:00] VITALS: BP 144/83
--- NOTE | 2020-01-10 18:42 | Infectious Diseases Prog Note ---
Assessment/Plan Assessment: Viral syndrome- -12/29 SARS-COV2 pCR neg -Bcx Neg -HIV ab screen, acute hep panel, RPR neg COPD exacerbation Mild hypoxia upon admission- now resolved- now at 2l NC -01/05 CXR: no acute disease -01/01 CXR: Mild linear atelectasis versus scarring in the right lung base, not significantly changed. The lungs otherwise appear clear -12/29 CXR: Basilar atelectasis and scarring. No acute disease. -sp cx K. pna (R amp; otherwise S) Afebrile No leukocytosis Thrombocytopenia/Lymphopenia Lactic acidosis;SP -01/07 u/a neg -u/a neg -Bcx NTD Chronic diarrhea- r.o parasitic infection -cdiff neg -stoolc x p COPD homelessness (lives in his car) HTN OA DJD HLD chronic back pain CVA smoker cocaine and THC use Plan: -Continue to monitor off abx -01/03 SP Azithromycin #5 -01/02 SP Ceftriaxone #4 -12/30 SP ZOsyn #2 -f/u cx -Monitor CBC/CMP, temperatures -COVID19 isolation and testing; [id number] test- will dc isolation as has remained afebrile, at RA and alternative diagnosis (bacterial bronchitis) -f/u HIV VL -u/a w/ reflex -stool studies Thank you for this consultation. Will continue to follow along with you. Discussed with RN. Subjective Allergies: Coded Allergies: No Known Allergies (Unverified , 08/14/19) afebrile at 2l NC awaiting transfer to Psych unit Objective Last 24 Hour Vital Signs Date Time Temp Pulse Resp B/P (MAP) Pulse Ox O2 Delivery O2 Flow Rate FiO2 01/10/20 16:00 98.6 82 19 144/83 (103) 98 01/10/20 14:20 78 152/86 01/10/20 14:20 152/86 01/10/20 13:14 96 20 97 Room Air 21 92 20 94 01/10/20 12:00 98.0 78 20 152/86 (108) 98 01/10/20 09:00 Nasal Cannula 2.0 01/10/20 08:00 97.7 76 21 169/84 (112) 99 01/10/20 07:44 117 20 97 Room Air 21 96 20 94 01/10/20 07:00 96 20 95 Room Air 21 01/10/20 06:00 92 166/88 01/10/20 06:00 166/88 01/10/20 04:00 96.8 72 20 175/78 (110) 98 01/10/20 00:00 97.1 80 20 143/72 (95) 96 01/09/20 21:33 148/72 01/09/20 21:32 75 148/72 01/09/20 21:00 Nasal Cannula 2.0 01/09/20 20:00 97.7 85 22 123/70 (87) 97 01/09/20 18:45 104 20 97 Room Air 21 Height (Feet): 6 Height (Inches): 2.00 Weight (Pounds): 170 General Appearance: cachetic - male in NAD HEENT: normocephalic, atraumatic Respiratory: chest wall non-tender, decreased breath sounds, other - isolated rhonchi Cardiovascular: normal peripheral pulses, normal rate Abdomen: normal bowel sounds, soft, non tender Extremities: no edema, pedal pulses normal Skin: no rash Neurologic: duplex trimmer II-XII grossly normal, alert, oriented x 3, responsive Musculoskeletal: normal muscle bulk Microbiology Date/Time Source Procedure Growth Status 01/09/20 12:28 Stool Stool Culture Pending Resulted 01/09/20 12:28 Stool Clostridium difficile Toxin Assay - Final Resulted Laboratory Tests Test 01/10/20 11:05 Sodium Level 137 MMOL/L (136-145) Potassium Level 4.5 MMOL/L (3.5-5.1) Chloride Level 98 MMOL/L (98-107) Carbon Dioxide Level 32 MMOL/L (21-32) Anion Gap 7 mmol/L (5-15) Blood Urea Nitrogen 28 mg/dL (7-18) H Creatinine 1.0 MG/DL (0.55-1.30) Estimat Glomerular Filtration Rate > 60 mL/min (>60) Glucose Level 93 MG/DL (74-106) Calcium Level 8.8 MG/DL (8.5-10.1) Phosphorus Level 3.9 MG/DL (2.5-4.9) Magnesium Level 2.1 MG/DL (1.8-2.4) Total Bilirubin 0.3 MG/DL (0.2-1.0) Aspartate Amino Transf (AST/SGOT) 24 U/L (15-37) Alanine Aminotransferase (ALT/SGPT) 56 U/L (12-78) Alkaline Phosphatase 35 U/L (46-116) L Total Protein 5.8 G/DL (6.4-8.2) L Albumin 3.3 G/DL (3.4-5.0) L Globulin 2.5 g/dL Albumin/Globulin Ratio 1.3 (1.0-2.7) Current Medications Medications (Trade) Dose Ordered Sig/Aguila Route PRN Reason Start Time Stop Time Status Last Admin Dose Admin Acetaminophen/ Hydrocodone Bitart ([place] 5/325) 1 tab Q6H PRN ORAL Severe Pain (Pain Scale 7-10) 01/08/20 15:45 01/15/20 15:44 01/08/20 15:49 Albuterol/ Ipratropium (Albuterol/ Ipratropium) 3 ml Q3H PRN HHN Shortness of Breath 01/07/20 16:30 01/12/20 16:29 01/10/20 13:04 Aspirin (Ecotrin) 81 mg DAILY ORAL 01/03/20 09:00 02/16/20 08:59 01/09/20 08:36 Clonidine HCl (Catapres Tab) 0.1 mg EVERY 8 HOURS ORAL 01/02/20 22:00 03/31/20 13:59 01/10/20 14:20 Clonidine HCl (Catapres Tab) 0.1 mg Q4H PRN ORAL bp over 165 syst 01/02/20 18:02 03/30/20 18:01 01/08/20 01:12 Dextrose (Dextrose 50%) 25 ml Q30M PRN IV Hypoglycemia 01/02/20 18:00 03/29/20 12:59 Dextrose (Dextrose 50%) 50 ml Q30M PRN IV Hypoglycemia 01/02/20 18:00 03/29/20 12:59 Diltiazem HCl (Cardizem) 60 mg EVERY 8 HOURS ORAL 01/02/20 22:00 01/31/20 21:59 01/10/20 14:20 Docusate Sodium (Colace) 100 mg THREE TIMES A DAY ORAL 01/02/20 18:00 01/30/20 08:59 01/10/20 14:20 Folic Acid (Folate) 2 mg DAILY ORAL 01/03/20 09:00 01/31/20 08:59 01/09/20 08:43 Furosemide (Lasix) 20 mg DAILY IV 01/03/20 09:00 01/31/20 08:59 01/03/20 09:25 Heparin Sodium (Porcine) (Heparin 5000 units/ml) 5,000 units EVERY 12 HOURS SUBQ 01/02/20 21:00 02/13/20 20:59 01/10/20 08:39 Lorazepam (Ativan) 0.5 mg Q6H PRN ORAL For Anxiety 01/08/20 17:15 01/15/20 17:14 Memantine (Namenda) 5 mg DAILY ORAL 01/03/20 09:00 01/31/20 08:59 01/09/20 08:36 Mirtazapine (Remeron) 7.5 mg BEDTIME ORAL 01/04/20 21:00 04/03/20 20:59 01/09/20 20:31 Nitroglycerin (Ntg) 0.4 mg Q5M X 3 DOSES PRN SL Prn Chest Pain 01/02/20 18:00 01/29/20 12:59 Ondansetron HCl (Zofran) 4 mg Q6H PRN IVP Nausea & Vomiting 01/02/20 18:06 01/29/20 18:05 Pantoprazole (Protonix) 40 mg EVERY 12 HOURS ORAL 01/02/20 21:00 01/29/20 20:59 01/09/20 20:31 Potassium Chloride (K-Dur) 40 meq BID ORAL 01/02/20 18:00 03/30/20 09:59 01/09/20 17:12 Prednisone (predniSONE) 40 mg DAILY ORAL 01/11/20 09:00 02/10/20 08:59 Promethazine HCl/ Codeine (Phenergan with Codeine) 5 ml Q6H PRN ORAL cough 01/02/20 18:06 01/29/20 18:05 Theophylline (Rigoberto-Dur) 100 mg EVERY 12 HOURS ORAL 01/02/20 21:00 03/29/20 20:59 01/09/20 20:31 Isabel Schultz M.D. Jan 10, 2020 18:42
--- NOTE | 2020-01-10 19:02 | NUR ---
HAND-OFF: Report given to Divine.
[2020-01-10 20:00] VITALS: BP 147/78
--- NOTE | 2020-01-10 21:40 | General Progress Note ---
Assessment/Plan Problem List: (1) COPD (chronic obstructive pulmonary disease) ICD Codes: J44.9 - Chronic obstructive pulmonary disease, unspecified SNOMED: 31600689 Qualifiers: Qualified Codes: J44.9 - Chronic obstructive pulmonary disease, unspecified (2) Electrolyte imbalance ICD Codes: E87.8 - Other disorders of electrolyte and fluid balance, not elsewhere classified SNOMED: 578290878 (3) Hypoxia ICD Codes: R09.02 - Hypoxemia SNOMED: 007090106 (4) HTN (hypertension) ICD Codes: I10 - Essential (primary) hypertension SNOMED: 38347425 (5) Acute exacerbation of chronic obstructive airways disease ICD Codes: J44.1 - Acute exacerbation of chronic obstructive airways disease SNOMED: 004203739 (6) Chronic back pain ICD Codes: G89.29 - Other chronic pain; M54.9 - Chronic back pain SNOMED: 025479512 (7) History of CVA (cerebrovascular accident) ICD Codes: Z86.73 - History of stroke SNOMED: 019290725 (8) Acute and chronic respiratory failure ([id number]) ICD Codes: J96.20 - Acute and chronic respiratory failure, unspecified whether with hypoxia or hypercapnia SNOMED: 62874777 (9) DJD (degenerative joint disease) ICD Codes: M19.90 - Unspecified osteoarthritis, unspecified site SNOMED: 741855188 (10) Tobacco dependence ICD Codes: F17.200 - Nicotine dependence, unspecified, uncomplicated SNOMED: 88872205 Status: stable, progressing Assessment/Plan: copd exacerbation h/p cva djd resp insuff no wheezing afebrile Subjective ROS Limited/Unobtainable: Yes Allergies: Coded Allergies: No Known Allergies (Unverified , 08/14/19) Objective Last 24 Hour Vital Signs Date Time Temp Pulse Resp B/P (MAP) Pulse Ox O2 Delivery O2 Flow Rate FiO2 01/10/20 21:01 101 147/78 01/10/20 21:01 147/78 01/10/20 20:26 Room Air 01/10/20 20:00 97.5 101 23 147/78 (101) 98 01/10/20 16:00 98.6 82 19 144/83 (103) 98 01/10/20 14:20 78 152/86 01/10/20 14:20 152/86 01/10/20 13:14 96 20 97 Room Air 21 92 20 94 01/10/20 12:00 98.0 78 20 152/86 (108) 98 01/10/20 09:00 Nasal Cannula 2.0 01/10/20 08:00 97.7 76 21 169/84 (112) 99 01/10/20 07:44 117 20 97 Room Air 21 96 20 94 01/10/20 07:00 96 20 95 Room Air 21 01/10/20 06:00 92 166/88 01/10/20 06:00 166/88 01/10/20 04:00 96.8 72 20 175/78 (110) 98 01/10/20 00:00 97.1 80 20 143/72 (95) 96 Intake and Output 01/09/20 01/10/20 19:00 07:00 Intake Total 720 ml 960 ml Output Total 2100 ml 800 ml Balance -1380 ml 160 ml Intake Oral 720 ml 960 ml Output Urine Total 2100 ml 800 ml # Bowel Movements 2 Laboratory Tests 01/10/20 11:05: Sodium Level 137, Potassium Level 4.5, Chloride Level 98, Carbon Dioxide Level 32, Anion Gap 7, Blood Urea Nitrogen 28H, Creatinine 1.0, Estimat Glomerular Filtration Rate > 60, Glucose Level 93, Calcium Level 8.8, Phosphorus Level 3.9 , Magnesium Level 2.1, Total Bilirubin 0.3, Aspartate Amino Transf (AST/SGOT) 24 , Alanine Aminotransferase (ALT/SGPT) 56, Alkaline Phosphatase 35L, Total Protein 5.8L, Albumin 3.3L, Globulin 2.5, Albumin/Globulin Ratio 1.3 Height (Feet): 6 Height (Inches): 2.00 Weight (Pounds): 170 Dorothy Watts MD Jan 10, 2020 21:40
[2020-01-11] MEDS: Albuterol/Ipratropium 3ml neb HHN PRN ×3 (05:27→19:10)
[2020-01-11] MEDS: dilTIAZem HCl 60mg tab ORAL SCH ×3 (05:37→22:00)
--- NOTE | 2020-01-11 07:24 | NUR ---
HAND-OFF: Report given to NICKOLAS Lei.
--- NOTE | 2020-01-11 07:25 | NUR ---
NURSE NOTES: Received patient in bed. Awake, A/O x4. On room air. Patient denies pain at this time. IV in the Left forearm, site intact. Bed low and locked.
[2020-01-11 08:00] VITALS: BP 139/80
[2020-01-11] MEDS: Docusate 100mg cap ORAL SCH ×3 (09:10→17:20)
[2020-01-11] MEDS: Memantine 5 MG TAB ORAL SCH (09:11)
[2020-01-11] MEDS: Theophylline ER 100mg ORAL SCH ×2 (09:11→20:50)
[2020-01-11] MEDS: Aspirin EC 81mg tab ORAL SCH (09:11)
[2020-01-11] MEDS: Heparin 5000 units/ml inj SUBQ SCH ×2 (09:16→20:50)
--- NOTE | 2020-01-11 09:20 | NUR ---
NURSE NOTES: Patient refused morning lasix and protonix medications. Patielen states "I will not take my stomach pill or my water pill." Refused x3. Re-educated on risks and benefits.
--- NOTE | 2020-01-11 09:30 | Progress Note ---
DATE: 01/11/2020 SUBJECTIVE: This is a 79-year-old male patient. He continues to be depressed, confused, mood labile. He has got no logical plans for his own self-care He has got feelings of helplessness, hopelessness, low energy, poor appetite, and loss of interest in activity. That is why he does require acute psychiatric inpatient treatment at this time. He is most likely with COPD, anemia, hypoxia, status post CVA, bronchitis, bacteremia, degenerative disc disease medical problems causing him to have cognition decline below baseline. That is why, his attending has requested daily psychiatric consultation MENTAL STATUS EXAMINATION: This is a 79-year-old male. Appearance is disheveled. Attitude, irritable and agitated. Affect, guarded and restricted. Intellect, poor. Mood, depressed and anxious. Motor activity, psychomotor agitation. Insight and judgment is poor. DIAGNOSIS: Major depressive disorder, mild, recurrent with psychotic features, rule out dementia with psychosis. PLAN: Treat him with Namenda 5 mg daily, Ativan 0.5 mg every 6 hours p.r.n. anxiety or agitation, and Remeron 7.5 mg nightly. 20 minutes of cognitive behavioral therapy to help identify his automatic negative thoughts and help him convert his negative thoughts to more positive thoughts to reduce depression, anxiety, and mood lability. Chart reviewed. Discussed with staff. Seen and assessed at bedside. Misha Bird M.D. DR: TRANG JOB#: [id number] CC:
--- NOTE | 2020-01-11 09:45 | NUR ---
PT EVALUATION NOTE Patient seen for re-evaluation and treatment initiated. Patient presents with generalized weakness and limited ambulation endurance with SOB. Patient transfers with SBA, patient impulsive at times with decreased safety. Patient able to ambulate 12 ft, with slowed pace, some SOB noted after ambulation. Patient states that his ambulation endurance is limited by his "COPD". Patient will benefit from skilled inpatient PT intervention to address LE strength, balance and safety for improved level of functional mobility. Discharge disposition to be determined. Addendum: 01/11/20 at 1100 by NAYA CASTORENA PT Amended: Links added.
--- NOTE | 2020-01-11 11:28 | Nephrology Progress Note ---
Assessment/Plan Problem List: (1) Electrolyte imbalance (2) Hypokalemia (3) Acute exacerbation of chronic obstructive airways disease (4) History of cocaine abuse (5) HTN (hypertension) Assessment This 79-year-old male is admitted with hypoxia, and leg swelling Renal impression: Hypokalemia, unclear etiology. No definite history of diarrhea given by the patient. No diuretic on the list of medications. Hypomagnesemia. Other conditions: Exacerbation of COPD, acute bronchitis, suspected COVID-19 infection Elevated lactate acid Patient is chronic smoker History of cocaine and marijuana abuse Hypertension Chronic back pain History of CVA Anemia Homelessness . Plan Can panel from January 09 and reviewed. Stable from a renal standpoint of view. Continue per consultants. Remains stable from renal standpoint of view, will check labs today. Continue per consultants. Potassium supplement as needed Start clonidine for blood pressure with parameters. Check chemistry panel as needed Continue per pulmonary management, pulmonary toilet, steroids, aim to taper as possible, per pulmonary Potassium and magnesium supplement as needed. Monitor renal parameters and electrolytes. Keep the blood pressure and blood sugar in check. Per orders. Subjective Constitutional: Reports: malaise Objective Objective Last 24 Hour Vital Signs Date Time Temp Pulse Resp B/P (MAP) Pulse Ox O2 Delivery O2 Flow Rate FiO2 01/11/20 09:00 Room Air 01/11/20 08:00 97.9 98 22 139/80 (99) 99 01/11/20 05:27 93 20 99 Room Air 21 88 18 95 01/10/20 21:01 101 147/78 01/10/20 21:01 147/78 01/10/20 20:33 88 20 95 Room Air 21 01/10/20 20:26 Room Air 01/10/20 20:00 97.5 101 23 147/78 (101) 98 01/10/20 16:00 98.6 82 19 144/83 (103) 98 01/10/20 14:20 78 152/86 01/10/20 14:20 152/86 01/10/20 13:14 96 20 97 Room Air 21 92 20 94 01/10/20 12:00 98.0 78 20 152/86 (108) 98 Intake and Output 01/10/20 01/11/20 19:00 07:00 Intake Total 1200 ml 360 ml Balance 1200 ml 360 ml Intake Oral 1200 ml Other 360 ml # Voids 8 5 # Bowel Movements 1 No blood drawn today Height (Feet): 6 Height (Inches): 2.00 Weight (Pounds): 170 General Appearance: no apparent distress Cardiovascular: tachycardia Respiratory/Chest: decreased breath sounds Abdomen: distended Objective No change Micky Ivy MD Jan 11, 2020 11:28
--- NOTE | 2020-01-11 11:38 | NUR ---
NURSE NOTES: Patient refused to give stool specimen. Patient refused x3.
[2020-01-11 12:00] VITALS: BP 130/77
--- NOTE | 2020-01-11 12:02 | Pulmonology Progress Note ---
Subjective ROS Limited/Unobtainable: Yes Interval Events: c/o chest and epigastric pain Allergies: Coded Allergies: No Known Allergies (Unverified , 08/14/19) Objective Last 24 Hour Vital Signs Date Time Temp Pulse Resp B/P (MAP) Pulse Ox O2 Delivery O2 Flow Rate FiO2 01/11/20 09:00 Room Air 01/11/20 08:00 97.9 98 22 139/80 (99) 99 01/11/20 05:27 93 20 99 Room Air 21 88 18 95 01/10/20 21:01 101 147/78 01/10/20 21:01 147/78 01/10/20 20:33 88 20 95 Room Air 21 01/10/20 20:26 Room Air 01/10/20 20:00 97.5 101 23 147/78 (101) 98 01/10/20 16:00 98.6 82 19 144/83 (103) 98 01/10/20 14:20 78 152/86 01/10/20 14:20 152/86 01/10/20 13:14 96 20 97 Room Air 21 92 20 94 Intake and Output 01/10/20 01/11/20 19:00 07:00 Intake Total 1200 ml 360 ml Balance 1200 ml 360 ml Intake Oral 1200 ml Other 360 ml # Voids 8 5 # Bowel Movements 1 General Appearance: cachetic - male in NAD HEENT: normocephalic, atraumatic Respiratory: chest wall non-tender, decreased breath sounds, rhonchi - left, other - isolated rhonchi Cardiovascular: normal peripheral pulses, normal rate Abdomen: normal bowel sounds, soft, non tender Extremities: no edema, pedal pulses normal Skin: no rash Neurologic: muffler tender II-XII grossly normal, alert, oriented x 3, responsive Musculoskeletal: normal muscle bulk Microbiology Date/Time Source Procedure Growth Status 01/09/20 12:28 Stool Stool Culture Pending Resulted 01/09/20 12:28 Stool Clostridium difficile Toxin Assay - Final Resulted Current Medications Medications (Trade) Dose Ordered Sig/Aguila Route PRN Reason Start Time Stop Time Status Last Admin Dose Admin Acetaminophen/ Hydrocodone Bitart ([place] 5/325) 1 tab Q6H PRN ORAL Severe Pain (Pain Scale 7-10) 01/08/20 15:45 01/15/20 15:44 01/08/20 15:49 Albuterol/ Ipratropium (Albuterol/ Ipratropium) 3 ml Q3H PRN HHN Shortness of Breath 01/07/20 16:30 01/12/20 16:29 01/11/20 05:27 Aspirin (Ecotrin) 81 mg DAILY ORAL 01/03/20 09:00 02/16/20 08:59 01/11/20 09:11 Clonidine HCl (Catapres Tab) 0.1 mg EVERY 8 HOURS ORAL 01/02/20 22:00 03/31/20 13:59 01/10/20 21:01 Clonidine HCl (Catapres Tab) 0.1 mg Q4H PRN ORAL bp over 165 syst 01/02/20 18:02 03/30/20 18:01 01/08/20 01:12 Dextrose (Dextrose 50%) 25 ml Q30M PRN IV Hypoglycemia 01/02/20 18:00 03/29/20 12:59 Dextrose (Dextrose 50%) 50 ml Q30M PRN IV Hypoglycemia 01/02/20 18:00 03/29/20 12:59 Diltiazem HCl (Cardizem) 60 mg EVERY 8 HOURS ORAL 01/02/20 22:00 01/31/20 21:59 01/10/20 21:01 Docusate Sodium (Colace) 100 mg THREE TIMES A DAY ORAL 01/02/20 18:00 01/30/20 08:59 01/11/20 09:10 Folic Acid (Folate) 2 mg DAILY ORAL 01/03/20 09:00 01/31/20 08:59 01/11/20 09:11 Furosemide (Lasix) 20 mg DAILY IV 01/03/20 09:00 01/31/20 08:59 01/03/20 09:25 Heparin Sodium (Porcine) (Heparin 5000 units/ml) 5,000 units EVERY 12 HOURS SUBQ 01/02/20 21:00 02/13/20 20:59 01/11/20 09:16 Lorazepam (Ativan) 0.5 mg Q6H PRN ORAL For Anxiety 01/08/20 17:15 01/15/20 17:14 Memantine (Namenda) 5 mg DAILY ORAL 01/03/20 09:00 01/31/20 08:59 01/11/20 09:11 Mirtazapine (Remeron) 7.5 mg BEDTIME ORAL 01/04/20 21:00 04/03/20 20:59 01/10/20 20:52 Nitroglycerin (Ntg) 0.4 mg Q5M X 3 DOSES PRN SL Prn Chest Pain 01/02/20 18:00 01/29/20 12:59 Ondansetron HCl (Zofran) 4 mg Q6H PRN IVP Nausea & Vomiting 01/02/20 18:06 01/29/20 18:05 Pantoprazole (Protonix) 40 mg EVERY 12 HOURS ORAL 01/02/20 21:00 01/29/20 20:59 01/10/20 20:52 Potassium Chloride (K-Dur) 40 meq BID ORAL 01/02/20 18:00 03/30/20 09:59 01/11/20 09:11 Prednisone (predniSONE) 40 mg DAILY ORAL 01/11/20 09:00 02/10/20 08:59 01/11/20 09:11 Promethazine HCl/ Codeine (Phenergan with Codeine) 5 ml Q6H PRN ORAL cough 01/02/20 18:06 01/29/20 18:05 Theophylline (Rigoberto-Dur) 100 mg EVERY 12 HOURS ORAL 01/02/20 21:00 03/29/20 20:59 01/11/20 09:11 Assessment/Plan Problems: (1) Acute exacerbation of chronic obstructive airways disease (2) Acute bronchitis (3) GERD (gastroesophageal reflux disease) (4) Pulmonary nodule (5) Emphysema (6) Chronic back pain (7) History of CVA (cerebrovascular accident) (8) History of cocaine abuse (9) Tobacco dependence (10) COPD (chronic obstructive pulmonary disease) Assessment/Plan pt is screaming from pain, in epigastric area. add Carafate and Protonix PT ordered again, since pt claims that he can't walk any more getting his nebulizer treatment now doing better respiratory treatment steroids, taper slowly, check sputum, Klebsiella in sputum, resistant to Ampicillin titrate fio2 to sat of 92% diuretics prn, Lasix qd, watch electrolytes dvt prophylaxis. Farhan Ortega MD Jan 11, 2020 12:02
--- NOTE | 2020-01-11 12:10 | NUR ---
NURSE NOTES: Patient made gun threats. CN aware, staff made aware, nursing supervisor coil winding made aware, security notified. Patient became aggressive after seeing the doctor and began raising his voice. RN went to the room and patient stated to tell the doctor to return. RN told patient the doctor was inputting his medications and RN would bring him the medications. Patient stated "No! Tell the doctor to come back and give me my medication!" Patient raised his voice and stated "I am going to come back and shoot you with my gun. Tell that doctor to come back."
[2020-01-11] MEDS: Phenazopyridine 200mg tab ORAL SCH ×2 (12:14→17:20)
--- NOTE | 2020-01-11 12:15 | NUR ---
NURSE NOTES: Patient states he has burning in his urinary tract. Dr. Ortega made aware with new orders for pyridium. Medication given to patient as ordered.
--- NOTE | 2020-01-11 12:18 | NUR ---
NURSE NOTES: Patient states "I need a breathing treatment." RT called for breathing treatment.
[2020-01-11] MEDS: Sucralfate 1gm tab ORAL SCH ×3 (12:32→20:50)
--- NOTE | 2020-01-11 12:33 | NUR ---
NURSE NOTES: Patient refusing protonix, carafate, and colace. Patient states "I just want my urinary tract medication." Patient re-educated on risks and benefits.
--- NOTE | 2020-01-11 13:27 | Infectious Diseases Prog Note ---
Assessment/Plan Assessment: Viral syndrome- -12/29 SARS-COV2 pCR neg -Bcx Neg -HIV ab screen, acute hep panel, RPR neg COPD exacerbation Mild hypoxia upon admission- now resolved- now at 2l NC -01/05 CXR: no acute disease -01/01 CXR: Mild linear atelectasis versus scarring in the right lung base, not significantly changed. The lungs otherwise appear clear -12/29 CXR: Basilar atelectasis and scarring. No acute disease. -sp cx K. pna (R amp; otherwise S) Afebrile No leukocytosis Thrombocytopenia/Lymphopenia Lactic acidosis;SP -01/07 u/a neg -u/a neg -Bcx NTD Chronic diarrhea- r.o parasitic infection -cdiff neg -stoolc x p COPD homelessness (lives in his car) HTN OA DJD HLD chronic back pain CVA smoker cocaine and THC use Plan: -Continue to monitor off abx -01/03 SP Azithromycin #5 -01/02 SP Ceftriaxone #4 -12/30 SP ZOsyn #2 -f/u cx -Monitor CBC/CMP, temperatures -COVID19 isolation and testing; [id number] test- will dc isolation as has remained afebrile, at RA and alternative diagnosis (bacterial bronchitis) -f/u HIV VL -u/a w/ reflex -stool studies Thank you for this consultation. Will continue to follow along with you. Discussed with RN. Subjective Allergies: Coded Allergies: No Known Allergies (Unverified , 08/14/19) afebrile no leukocytosis awaiting transfer to Psych unit Objective Last 24 Hour Vital Signs Date Time Temp Pulse Resp B/P (MAP) Pulse Ox O2 Delivery O2 Flow Rate FiO2 01/11/20 12:32 94 18 100 Room Air 21 96 18 98 01/11/20 09:00 Room Air 01/11/20 08:30 96 18 98 Room Air 21 01/11/20 08:00 97.9 98 22 139/80 (99) 99 01/11/20 05:27 93 20 99 Room Air 21 88 18 95 01/10/20 21:01 101 147/78 01/10/20 21:01 147/78 01/10/20 20:33 88 20 95 Room Air 21 01/10/20 20:26 Room Air 01/10/20 20:00 97.5 101 23 147/78 (101) 98 01/10/20 16:00 98.6 82 19 144/83 (103) 98 01/10/20 14:20 78 152/86 01/10/20 14:20 152/86 Height (Feet): 6 Height (Inches): 2.00 Weight (Pounds): 170 General Appearance: cachetic - male in NAD HEENT: normocephalic, atraumatic Respiratory: chest wall non-tender, decreased breath sounds, other - isolated rhonchi Cardiovascular: normal peripheral pulses, normal rate Abdomen: normal bowel sounds, soft, non tender Extremities: no edema, pedal pulses normal Skin: no rash Neurologic: 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 grossly normal, alert, oriented x 3, responsive Musculoskeletal: normal muscle bulk Microbiology Date/Time Source Procedure Growth Status 01/09/20 12:28 Stool Stool Culture Pending Resulted 01/09/20 12:28 Stool Clostridium difficile Toxin Assay - Final Resulted Current Medications Medications (Trade) Dose Ordered Sig/Aguila Route PRN Reason Start Time Stop Time Status Last Admin Dose Admin Acetaminophen/ Hydrocodone Bitart ([place] 5/325) 1 tab Q6H PRN ORAL Severe Pain (Pain Scale 7-10) 01/08/20 15:45 01/15/20 15:44 01/08/20 15:49 Albuterol/ Ipratropium (Albuterol/ Ipratropium) 3 ml Q3H PRN HHN Shortness of Breath 01/07/20 16:30 01/12/20 16:29 01/11/20 12:32 Aspirin (Ecotrin) 81 mg DAILY ORAL 01/03/20 09:00 02/16/20 08:59 01/11/20 09:11 Clonidine HCl (Catapres Tab) 0.1 mg EVERY 8 HOURS ORAL 01/02/20 22:00 03/31/20 13:59 01/10/20 21:01 Clonidine HCl (Catapres Tab) 0.1 mg Q4H PRN ORAL bp over 165 syst 01/02/20 18:02 03/30/20 18:01 01/08/20 01:12 Dextrose (Dextrose 50%) 25 ml Q30M PRN IV Hypoglycemia 01/02/20 18:00 03/29/20 12:59 Dextrose (Dextrose 50%) 50 ml Q30M PRN IV Hypoglycemia 01/02/20 18:00 03/29/20 12:59 Diltiazem HCl (Cardizem) 60 mg EVERY 8 HOURS ORAL 01/02/20 22:00 01/31/20 21:59 01/10/20 21:01 Docusate Sodium (Colace) 100 mg THREE TIMES A DAY ORAL 01/02/20 18:00 01/30/20 08:59 01/11/20 09:10 Folic Acid (Folate) 2 mg DAILY ORAL 01/03/20 09:00 01/31/20 08:59 01/11/20 09:11 Furosemide (Lasix) 20 mg DAILY IV 01/03/20 09:00 01/31/20 08:59 01/03/20 09:25 Heparin Sodium (Porcine) (Heparin 5000 units/ml) 5,000 units EVERY 12 HOURS SUBQ 01/02/20 21:00 02/13/20 20:59 01/11/20 09:16 Lorazepam (Ativan) 0.5 mg Q6H PRN ORAL For Anxiety 01/08/20 17:15 01/15/20 17:14 Memantine (Namenda) 5 mg DAILY ORAL 01/03/20 09:00 01/31/20 08:59 01/11/20 09:11 Mirtazapine (Remeron) 7.5 mg BEDTIME ORAL 01/04/20 21:00 04/03/20 20:59 01/10/20 20:52 Nitroglycerin (Ntg) 0.4 mg Q5M X 3 DOSES PRN SL Prn Chest Pain 01/02/20 18:00 01/29/20 12:59 Ondansetron HCl (Zofran) 4 mg Q6H PRN IVP Nausea & Vomiting 01/02/20 18:06 01/29/20 18:05 Pantoprazole (Protonix) 40 mg EVERY 12 HOURS ORAL 01/11/20 12:00 02/10/20 11:59 Phenazopyridine HCl (Pyridium) 200 mg THREE TIMES A DAY ORAL 01/11/20 13:00 04/10/20 12:59 01/11/20 12:14 Potassium Chloride (K-Dur) 40 meq BID ORAL 01/02/20 18:00 03/30/20 09:59 01/11/20 09:11 Prednisone (predniSONE) 20 mg DAILY ORAL 01/12/20 09:00 02/10/20 08:59 Promethazine HCl/ Codeine (Phenergan with Codeine) 5 ml Q6H PRN ORAL cough 01/02/20 18:06 01/29/20 18:05 Sucralfate (Carafate) 1 gm FOUR TIMES A DAY ORAL 01/11/20 13:00 04/10/20 12:59 Theophylline (Rigoberto-Dur) 100 mg EVERY 12 HOURS ORAL 01/02/20 21:00 03/29/20 20:59 01/11/20 09:11 Isabel Schultz M.D. Jan 11, 2020 13:27
[2020-01-11] MEDS: HYDROcodone/Acetamin 5/325 tab ORAL PRN (14:46)
--- NOTE | 2020-01-11 14:47 | NUR ---
NURSE NOTES: Patient states he still has lower abdominal pain. [place] given as ordered for 10/10 pain.
[2020-01-11 16:00] VITALS: BP 126/72
--- NOTE | 2020-01-11 17:48 | NUR ---
NURSE NOTES: Patient refused PO carafate. Patient states "I do not want any stomach medication." Refused x3. Re-educated on risks and benefits.
--- NOTE | 2020-01-11 19:20 | NUR ---
NURSE NOTES: Received report from Quique OLMOS. Pt. is in bed, asleep, no sob noted.Denies any pain at this time. Will continue to monitor.
--- NOTE | 2020-01-11 19:33 | NUR ---
HAND-OFF: Report given to Miguelito OLMOS.
[2020-01-11 20:00] VITALS: BP 100/65
--- NOTE | 2020-01-11 20:35 | General Progress Note ---
Assessment/Plan Problem List: (1) COPD (chronic obstructive pulmonary disease) ICD Codes: J44.9 - Chronic obstructive pulmonary disease, unspecified SNOMED: 21194265 Qualifiers: Qualified Codes: J44.9 - Chronic obstructive pulmonary disease, unspecified (2) Electrolyte imbalance ICD Codes: E87.8 - Other disorders of electrolyte and fluid balance, not elsewhere classified SNOMED: 876253544 (3) Hypoxia ICD Codes: R09.02 - Hypoxemia SNOMED: 935552713 (4) HTN (hypertension) ICD Codes: I10 - Essential (primary) hypertension SNOMED: 69423418 (5) Acute exacerbation of chronic obstructive airways disease ICD Codes: J44.1 - Acute exacerbation of chronic obstructive airways disease SNOMED: 550497834 (6) Chronic back pain ICD Codes: G89.29 - Other chronic pain; M54.9 - Chronic back pain SNOMED: 257104791 (7) History of CVA (cerebrovascular accident) ICD Codes: Z86.73 - History of stroke SNOMED: 676856985 (8) Acute and chronic respiratory failure ([id number]) ICD Codes: J96.20 - Acute and chronic respiratory failure, unspecified whether with hypoxia or hypercapnia SNOMED: 59574548 (9) DJD (degenerative joint disease) ICD Codes: M19.90 - Unspecified osteoarthritis, unspecified site SNOMED: 602124232 (10) Tobacco dependence ICD Codes: F17.200 - Nicotine dependence, unspecified, uncomplicated SNOMED: 28353719 Status: stable, progressing Assessment/Plan: copd exacerbation h/p cva reviewed chart and labs afebrie no change resp insuff Subjective ROS Limited/Unobtainable: Yes Allergies: Coded Allergies: No Known Allergies (Unverified , 08/14/19) Objective Last 24 Hour Vital Signs Date Time Temp Pulse Resp B/P (MAP) Pulse Ox O2 Delivery O2 Flow Rate FiO2 01/11/20 19:11 87 18 100 Room Air 21 84 18 96 01/11/20 19:10 84 18 96 Room Air 21 01/11/20 16:00 97.6 89 21 126/72 (90) 93 01/11/20 13:48 97 130/77 01/11/20 13:48 130/77 01/11/20 12:32 94 18 100 Room Air 21 96 18 98 01/11/20 12:00 98.2 97 22 130/77 (94) 99 01/11/20 09:00 Room Air 01/11/20 08:30 96 18 98 Room Air 21 01/11/20 08:00 97.9 98 22 139/80 (99) 99 01/11/20 05:27 93 20 99 Room Air 21 88 18 95 01/10/20 21:01 101 147/78 01/10/20 21:01 147/78 Intake and Output 01/10/20 01/11/20 19:00 07:00 Intake Total 1200 ml 360 ml Balance 1200 ml 360 ml Intake Oral 1200 ml Other 360 ml # Voids 8 5 # Bowel Movements 1 Height (Feet): 6 Height (Inches): 2.00 Weight (Pounds): 170 Dorothy Watts MD Jan 11, 2020 20:35
[2020-01-12] VITALS: BP 99/65
--- NOTE | 2020-01-12 04:05 | NUR ---
NURSE NOTES: Pt. states he is covid positive and that is the reason he wants to stay here forever until the surge of covid will be gone. I don't plan of leaving at anytime, so they don't try to mess up with me placing in a skilled facility [facility] I wont leave.
[2020-01-12] MEDS: dilTIAZem HCl 60mg tab ORAL SCH ×2 (06:00→14:20)
--- NOTE | 2020-01-12 06:45 | NUR ---
NURSE NOTES: Pt. complained of chest pain, crushing pain on his left upper chest; 12/21. BP checked, 140/80. Administered Nitroglycerin per order. Rechecked in 5 min; pt. states he is relieved with the meds. Rechecked BP = 109/76. refused to take his morning meds.
--- NOTE | 2020-01-12 07:15 | NUR ---
HAND-OFF: Report given to Quique OLMOS.
--- NOTE | 2020-01-12 07:29 | NUR ---
NURSE NOTES: Received patient in bed. Awake, A/O x4. On room air. Patient denies pain. IV in the Left forearm, site intact. Bed low and locked.
[2020-01-12 08:00] VITALS: BP 137/85
[2020-01-12] MEDS: Aspirin EC 81mg tab ORAL SCH (08:22)
[2020-01-12] MEDS: Memantine 5 MG TAB ORAL SCH (08:22)
[2020-01-12] MEDS: Phenazopyridine 200mg tab ORAL SCH ×2 (08:23→14:20)
[2020-01-12] MEDS: Docusate 100mg cap ORAL SCH ×2 (08:23→14:20)
[2020-01-12] MEDS: Theophylline ER 100mg ORAL SCH (08:23)
[2020-01-12] MEDS: Heparin 5000 units/ml inj SUBQ SCH (08:24)
[2020-01-12] MEDS: Sucralfate 1gm tab ORAL SCH ×2 (09:00→13:00)
--- NOTE | 2020-01-12 09:18 | NUR ---
NURSE NOTES: Patient refused PO carafate, Po protonix, and lasix. Refused x3. Patient states "I do not want my stomach pill or my water pill." Patient re-educated on risks and benefits.
--- NOTE | 2020-01-12 10:00 | Progress Note ---
DATE: 01/12/2020 SUBJECTIVE: This is a 79-year-old male. He is confused and disorganized. He has COPD, anemia, hypoxia, degenerative joint disease causing him to have decline in cognition below his baseline. That is why his attending has requested daily psychiatric consultation. MENTAL STATUS EXAMINATION: This is a 79-year-old male. Appearance is disheveled. Attitude, irritable and agitated. Affect, guarded and restricted. Intellect, poor. Mood, depressed and anxious. Motor activity, psychomotor agitation. Insight and judgment is poor. DIAGNOSIS: Major depressive disorder, mild, recurrent with psychotic features. PLAN: Treat him with Namenda 5 mg daily, Ativan 0.5 mg every six hours p.r.n. anxiety or agitation, and Remeron 7.5 mg nightly. 20 minutes of cognitive behavioral therapy to help him identify his automatic negative thoughts and help him convert his negative thoughts to more positive thoughts to reduce depression, anxiety, and mood lability. Chart reviewed. Discussed with staff. Seen and assessed at bedside. Misha Bird M.D. DR: TRANG JOB#: [id number] CC:
--- NOTE | 2020-01-12 11:27 | NUR ---
LOCKS TENDER NOTE;DC PLANNING DR STEELE GAVE TO/RB TO DC PATIENT IF CLEAR BY PULMO. DC HOSPITAL MEDS, RESUME HOME MEDS. NOTED AND CARRIED OUT ORDERED.
--- NOTE | 2020-01-12 11:43 | NUR ---
NURSE NOTES: RN and KEISHA Hernandez spoke to patient regarding discharge. Patient stated he will not leave until he is seen by his doctor. Patient stated he is not refusing any medications. RN discussed refusal of lasix and protonix. Patient stated "Lasix makes me pee. I do not want to pee on myself." Taxi offered to patient by KEISHA. Patient stated "I do not need a taxi." RN offered taxi. Patient agreed to taxi.
[2020-01-12 12:00] VITALS: BP 139/74
--- NOTE | 2020-01-12 12:08 | NUR ---
SALES INSPECTOR NOTE CM MET WITH PATIENT AT BEDSIDE WITH NICKOLAS SUAREZ. PATIENT INFORMED OF DISCHARGE. PATIENT STATED HE WANTS TO SEE DR HERNANDEZ BEFORE HE LEAVES. PATIENT INFORMED THAT DR HERNANDEZ PLANS TO SEE HIM PRIOR TO DISCHARGE. CM OFFERED TAXI VOUCHER IF NEEDED TO RETURN TO HIS PLACE OF ORIGIN. PATIENT INITIALLY DECLINED TAXI VOUCHER. RN OFFERED A 2ND TIME AND PATIENT ACCEPTED. STATES HE WILL NEED A TAXI VOUCHER TO RETURN TO HIS PLACE OF ORIGIN.
--- NOTE | 2020-01-12 12:27 | NUR ---
HUMAN RESOURCES BENEFITS ASSISTANT NOTE PT reports he is willing to go to his friend, Elida's house at [address]. PT does not recall her phone number. SW discussed the case w/ assigned CM and finalized that the house will provide a taxi ride. SW explained negative ramification of unlicensed facility/self-directing. Pt verbalized understanding. CYRIL spoke w/ Cristi from [facility] [phone] #7 that there is no bed available in [facility].
--- NOTE | 2020-01-12 13:23 | Nephrology Progress Note ---
Assessment/Plan Problem List: (1) Electrolyte imbalance (2) Hypokalemia (3) Acute exacerbation of chronic obstructive airways disease (4) History of cocaine abuse (5) HTN (hypertension) Assessment This 79-year-old male is admitted with hypoxia, and leg swelling Renal impression: Hypokalemia, unclear etiology. No definite history of diarrhea given by the patient. No diuretic on the list of medications. Hypomagnesemia. Other conditions: Exacerbation of COPD, acute bronchitis, suspected COVID-19 infection Elevated lactate acid Patient is chronic smoker History of cocaine and marijuana abuse Hypertension Chronic back pain History of CVA Anemia Homelessness . Plan January 11: Patient stable from renal standpoint of view C chemistry panel from January 09 and reviewed. Stable from a renal standpoint of view. Continue per consultants. Remains stable from renal standpoint of view, will check labs today. Continue per consultants. Potassium supplement as needed Start clonidine for blood pressure with parameters. Check chemistry panel as needed Continue per pulmonary management, pulmonary toilet, steroids, aim to taper as possible, per pulmonary Potassium and magnesium supplement as needed. Monitor renal parameters and electrolytes. Keep the blood pressure and blood sugar in check. Per orders. Subjective ROS Limited/Unobtainable: No Constitutional: Reports: malaise, weakness Objective Objective Last 24 Hour Vital Signs Date Time Temp Pulse Resp B/P (MAP) Pulse Ox O2 Delivery O2 Flow Rate FiO2 01/12/20 12:00 97.3 92 18 139/74 (95) 97 01/12/20 09:00 Room Air 01/12/20 08:00 97.0 95 18 137/85 (102) 98 01/12/20 06:31 140/85 01/12/20 06:00 83 106/79 01/12/20 06:00 106/79 01/12/20 00:00 97.5 90 18 99/65 (76) 95 01/11/20 22:00 76 98/61 01/11/20 22:00 98/61 01/11/20 21:00 Room Air 01/11/20 20:00 97.2 93 21 100/65 (77) 95 01/11/20 19:11 87 18 100 Room Air 21 84 18 96 01/11/20 19:10 84 18 96 Room Air 21 01/11/20 16:00 97.6 89 21 126/72 (90) 93 01/11/20 13:48 97 130/77 01/11/20 13:48 130/77 Intake and Output 01/11/20 01/12/20 19:00 07:00 Intake Total 900 ml 1000 ml Output Total 700 ml Balance 200 ml 1000 ml Intake Oral 900 ml Other 1000 ml Output Urine Total 700 ml # Voids 6 5 # Bowel Movements 1 No labs drawn today Height (Feet): 6 Height (Inches): 2.00 Weight (Pounds): 0 General Appearance: no apparent distress Cardiovascular: tachycardia Respiratory/Chest: decreased breath sounds Abdomen: soft Objective No change Micky Ivy MD Jan 12, 2020 13:23
--- NOTE | 2020-01-12 13:51 | Pulmonology Progress Note ---
Subjective ROS Limited/Unobtainable: No Interval Events: c/o chest and epigastric pain Constitutional: Reports: no symptoms HEENT: Repors: no symptoms Respiratory: Reports: no symptoms Allergies: Coded Allergies: No Known Allergies (Unverified , 08/14/19) Objective Last 24 Hour Vital Signs Date Time Temp Pulse Resp B/P (MAP) Pulse Ox O2 Delivery O2 Flow Rate FiO2 01/12/20 12:00 97.3 92 18 139/74 (95) 97 01/12/20 09:00 Room Air 01/12/20 08:00 97.0 95 18 137/85 (102) 98 01/12/20 06:31 140/85 01/12/20 06:00 83 106/79 01/12/20 06:00 106/79 01/12/20 00:00 97.5 90 18 99/65 (76) 95 01/11/20 22:00 76 98/61 01/11/20 22:00 98/61 01/11/20 21:00 Room Air 01/11/20 20:00 97.2 93 21 100/65 (77) 95 01/11/20 19:11 87 18 100 Room Air 21 84 18 96 01/11/20 19:10 84 18 96 Room Air 21 01/11/20 16:00 97.6 89 21 126/72 (90) 93 Intake and Output 01/11/20 01/12/20 19:00 07:00 Intake Total 900 ml 1000 ml Output Total 700 ml Balance 200 ml 1000 ml Intake Oral 900 ml Other 1000 ml Output Urine Total 700 ml # Voids 6 5 # Bowel Movements 1 General Appearance: cachetic - male in NAD HEENT: normocephalic, atraumatic Respiratory: chest wall non-tender, decreased breath sounds, rhonchi - left, other - isolated rhonchi Cardiovascular: normal peripheral pulses, normal rate Abdomen: normal bowel sounds, soft, non tender Extremities: no edema, pedal pulses normal Skin: no rash 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: 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 grossly normal, alert, oriented x 3, responsive Musculoskeletal: normal muscle bulk Current Medications Medications (Trade) Dose Ordered Sig/Aguila Route PRN Reason Start Time Stop Time Status Last Admin Dose Admin Acetaminophen/ Hydrocodone Bitart ([place] 5/325) 1 tab Q6H PRN ORAL Severe Pain (Pain Scale 7-10) 01/08/20 15:45 01/15/20 15:44 01/11/20 14:46 Albuterol/ Ipratropium (Albuterol/ Ipratropium) 3 ml Q3H PRN HHN Shortness of Breath 01/07/20 16:30 01/12/20 16:29 01/11/20 19:10 Aspirin (Ecotrin) 81 mg DAILY ORAL 01/03/20 09:00 02/16/20 08:59 01/12/20 08:22 Clonidine HCl (Catapres Tab) 0.1 mg EVERY 8 HOURS ORAL 01/02/20 22:00 03/31/20 13:59 01/11/20 13:48 Clonidine HCl (Catapres Tab) 0.1 mg Q4H PRN ORAL bp over 165 syst 01/02/20 18:02 03/30/20 18:01 01/08/20 01:12 Dextrose (Dextrose 50%) 25 ml Q30M PRN IV Hypoglycemia 01/02/20 18:00 03/29/20 12:59 Dextrose (Dextrose 50%) 50 ml Q30M PRN IV Hypoglycemia 01/02/20 18:00 03/29/20 12:59 Diltiazem HCl (Cardizem) 60 mg EVERY 8 HOURS ORAL 01/02/20 22:00 01/31/20 21:59 01/11/20 13:48 Docusate Sodium (Colace) 100 mg THREE TIMES A DAY ORAL 01/02/20 18:00 01/30/20 08:59 01/12/20 08:23 Folic Acid (Folate) 2 mg DAILY ORAL 01/03/20 09:00 01/31/20 08:59 01/12/20 08:23 Furosemide (Lasix) 20 mg DAILY IV 01/03/20 09:00 01/31/20 08:59 01/03/20 09:25 Heparin Sodium (Porcine) (Heparin 5000 units/ml) 5,000 units EVERY 12 HOURS SUBQ 01/02/20 21:00 02/13/20 20:59 01/12/20 08:24 Lorazepam (Ativan) 0.5 mg Q6H PRN ORAL For Anxiety 01/08/20 17:15 01/15/20 17:14 Memantine (Namenda) 5 mg DAILY ORAL 01/03/20 09:00 01/31/20 08:59 01/12/20 08:22 Mirtazapine (Remeron) 7.5 mg BEDTIME ORAL 01/04/20 21:00 04/03/20 20:59 01/11/20 20:50 Nitroglycerin (Ntg) 0.4 mg Q5M X 3 DOSES PRN SL Prn Chest Pain 01/02/20 18:00 01/29/20 12:59 01/12/20 06:31 Ondansetron HCl (Zofran) 4 mg Q6H PRN IVP Nausea & Vomiting 01/02/20 18:06 01/29/20 18:05 Pantoprazole (Protonix) 40 mg EVERY 12 HOURS ORAL 01/11/20 12:00 02/10/20 11:59 01/11/20 20:50 Phenazopyridine HCl (Pyridium) 200 mg THREE TIMES A DAY ORAL 01/11/20 13:00 04/10/20 12:59 01/12/20 08:23 Potassium Chloride (K-Dur) 40 meq BID ORAL 01/02/20 18:00 03/30/20 09:59 01/12/20 08:23 Prednisone (predniSONE) 20 mg DAILY ORAL 01/12/20 09:00 02/10/20 08:59 01/12/20 08:23 Promethazine HCl/ Codeine (Phenergan with Codeine) 5 ml Q6H PRN ORAL cough 01/02/20 18:06 01/29/20 18:05 Sucralfate (Carafate) 1 gm FOUR TIMES A DAY ORAL 01/11/20 13:00 04/10/20 12:59 01/11/20 20:50 Theophylline (Rigoberto-Dur) 100 mg EVERY 12 HOURS ORAL 01/02/20 21:00 03/29/20 20:59 01/12/20 08:23 Assessment/Plan Problems: (1) Acute exacerbation of chronic obstructive airways disease (2) Acute bronchitis (3) GERD (gastroesophageal reflux disease) (4) Pulmonary nodule (5) Emphysema (6) Chronic back pain (7) History of CVA (cerebrovascular accident) (8) History of cocaine abuse (9) Tobacco dependence (10) COPD (chronic obstructive pulmonary disease) Assessment/Plan still short of breath. on Carafate and Protonix PT ordered again, since pt claims that he can't walk any more getting his nebulizer treatment now doing better respiratory treatment steroids, taper slowly, check sputum, Klebsiella in sputum, resistant to Ampicillin titrate fio2 to sat of 92% diuretics prn, Lasix qd, watch electrolytes dvt prophylaxis. Farhan Ortega MD Jan 12, 2020 13:51
[2020-01-12] MEDS: Albuterol/Ipratropium 3ml neb HHN PRN (14:01)
--- NOTE | 2020-01-12 14:10 | NUR ---
NURSE NOTES: Notified Rafa Marcos for new pain management consult. Will see patient today.
[2020-01-12 14:20] VITALS: BP 134/68
--- NOTE | 2020-01-12 14:57 | Infectious Diseases Prog Note ---
Assessment/Plan Assessment: Viral syndrome- -12/29 SARS-COV2 pCR neg -Bcx Neg -HIV ab screen, acute hep panel, RPR neg COPD exacerbation Mild hypoxia upon admission- now resolved- now at 2l NC -01/05 CXR: no acute disease -01/01 CXR: Mild linear atelectasis versus scarring in the right lung base, not significantly changed. The lungs otherwise appear clear -12/29 CXR: Basilar atelectasis and scarring. No acute disease. -sp cx K. pna (R amp; otherwise S) Afebrile No leukocytosis Thrombocytopenia/Lymphopenia Lactic acidosis;SP -01/07 u/a neg -u/a neg -Bcx NTD Chronic diarrhea- r.o parasitic infection -cdiff neg -stoolc x p COPD homelessness (lives in his car) HTN OA DJD HLD chronic back pain CVA smoker cocaine and THC use Plan: -Continue to monitor off abx -01/03 SP Azithromycin #5 -01/02 SP Ceftriaxone #4 -12/30 SP ZOsyn #2 -f/u cx -Monitor CBC/CMP, temperatures -COVID19 isolation and testing; [id number] test- will dc isolation as has remained afebrile, at RA and alternative diagnosis (bacterial bronchitis) -f/u HIV VL -u/a w/ reflex -stool studies Thank you for this consultation. Will continue to follow along with you. Discussed with RN. Subjective Allergies: Coded Allergies: No Known Allergies (Unverified , 08/14/19) afebrile no leukocytosis awaiting transfer to Psych unit no new events Objective Last 24 Hour Vital Signs Date Time Temp Pulse Resp B/P (MAP) Pulse Ox O2 Delivery O2 Flow Rate FiO2 01/12/20 14:20 93 134/68 01/12/20 14:20 134/68 01/12/20 14:02 90 20 97 Room Air 21 01/12/20 14:01 93 20 100 Room Air 21 90 20 97 01/12/20 12:00 97.3 92 18 139/74 (95) 97 01/12/20 09:00 Room Air 01/12/20 08:00 97.0 95 18 137/85 (102) 98 01/12/20 06:31 140/85 01/12/20 06:00 83 106/79 01/12/20 06:00 106/79 01/12/20 00:00 97.5 90 18 99/65 (76) 95 01/11/20 22:00 76 98/61 01/11/20 22:00 98/61 01/11/20 21:00 Room Air 01/11/20 20:00 97.2 93 21 100/65 (77) 95 01/11/20 19:11 87 18 100 Room Air 21 84 18 96 01/11/20 19:10 84 18 96 Room Air 21 01/11/20 16:00 97.6 89 21 126/72 (90) 93 Height (Feet): 6 Height (Inches): 2.00 Weight (Pounds): 0 General Appearance: cachetic - male in NAD HEENT: normocephalic, atraumatic Respiratory: chest wall non-tender, decreased breath sounds, other - isolated rhonchi Cardiovascular: normal peripheral pulses, normal rate Abdomen: normal bowel sounds, soft, non tender Extremities: no edema, pedal pulses normal Skin: no rash 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, alert, oriented x 3, responsive Musculoskeletal: normal muscle bulk Current Medications Medications (Trade) Dose Ordered Sig/Aguila Route PRN Reason Start Time Stop Time Status Last Admin Dose Admin Acetaminophen/ Hydrocodone Bitart ([place] 5/325) 1 tab Q6H PRN ORAL Severe Pain (Pain Scale 7-10) 01/08/20 15:45 01/15/20 15:44 01/11/20 14:46 Albuterol/ Ipratropium (Albuterol/ Ipratropium) 3 ml Q3H PRN HHN Shortness of Breath 01/07/20 16:30 01/12/20 16:29 01/12/20 14:01 Aspirin (Ecotrin) 81 mg DAILY ORAL 01/03/20 09:00 02/16/20 08:59 01/12/20 08:22 Clonidine HCl (Catapres Tab) 0.1 mg EVERY 8 HOURS ORAL 01/02/20 22:00 03/31/20 13:59 01/12/20 14:20 Clonidine HCl (Catapres Tab) 0.1 mg Q4H PRN ORAL bp over 165 syst 01/02/20 18:02 03/30/20 18:01 01/08/20 01:12 Dextrose (Dextrose 50%) 25 ml Q30M PRN IV Hypoglycemia 01/02/20 18:00 03/29/20 12:59 Dextrose (Dextrose 50%) 50 ml Q30M PRN IV Hypoglycemia 01/02/20 18:00 03/29/20 12:59 Diltiazem HCl (Cardizem Tab) 60 mg EVERY 8 HOURS ORAL 01/02/20 22:00 01/31/20 21:59 01/12/20 14:20 Docusate Sodium (Colace) 100 mg THREE TIMES A DAY ORAL 01/02/20 18:00 01/30/20 08:59 01/12/20 14:20 Folic Acid (Folate) 2 mg DAILY ORAL 01/03/20 09:00 01/31/20 08:59 01/12/20 08:23 Furosemide (Lasix) 20 mg DAILY IV 01/03/20 09:00 01/31/20 08:59 01/03/20 09:25 Heparin Sodium (Porcine) (Heparin 5000 units/ml) 5,000 units EVERY 12 HOURS SUBQ 01/02/20 21:00 02/13/20 20:59 01/12/20 08:24 Lorazepam (Ativan) 0.5 mg Q6H PRN ORAL For Anxiety 01/08/20 17:15 01/15/20 17:14 Memantine (Namenda) 5 mg DAILY ORAL 01/03/20 09:00 01/31/20 08:59 01/12/20 08:22 Mirtazapine (Remeron) 7.5 mg BEDTIME ORAL 01/04/20 21:00 04/03/20 20:59 01/11/20 20:50 Nitroglycerin (Ntg) 0.4 mg Q5M X 3 DOSES PRN SL Prn Chest Pain 01/02/20 18:00 01/29/20 12:59 01/12/20 06:31 Ondansetron HCl (Zofran) 4 mg Q6H PRN IVP Nausea & Vomiting 01/02/20 18:06 01/29/20 18:05 Pantoprazole (Protonix) 40 mg EVERY 12 HOURS ORAL 01/11/20 12:00 02/10/20 11:59 01/11/20 20:50 Phenazopyridine HCl (Pyridium) 200 mg THREE TIMES A DAY ORAL 01/11/20 13:00 04/10/20 12:59 01/12/20 14:20 Potassium Chloride (K-Dur) 40 meq BID ORAL 01/02/20 18:00 03/30/20 09:59 01/12/20 08:23 Prednisone (predniSONE) 20 mg DAILY ORAL 01/12/20 09:00 02/10/20 08:59 01/12/20 08:23 Promethazine HCl/ Codeine (Phenergan with Codeine) 5 ml Q6H PRN ORAL cough 01/02/20 18:06 01/29/20 18:05 Sucralfate (Carafate) 1 gm FOUR TIMES A DAY ORAL 01/11/20 13:00 04/10/20 12:59 01/11/20 20:50 Theophylline (Rigoberto-Dur) 100 mg EVERY 12 HOURS ORAL 01/02/20 21:00 03/29/20 20:59 01/12/20 08:23 Isabel Schultz M.D. Jan 12, 2020 14:56
--- NOTE | 2020-01-12 16:05 | NUR ---
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
--- NOTE | 2020-01-12 16:20 | NUR ---
NURSE NOTES: Contacted Rafa Marcos for update. Patient is asking for pain medication prescription, per Rafa Marcos the patient has a recent prescription given for pain meds on 12/23/2019 and another prescription cannot be written. Communicated to patient. Patient states he will leave without a prescription.
--- NOTE | 2020-01-12 16:50 | NUR ---
NURSE NOTES: Patient d/c via taxi. Belongings list verified, patient refused to sign belongings list sheet. IV site removed, ID band removed. Patient stable. Patient refused to sign discharge paperwork. Homeless resources given to patient.
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
== END 2020-01-12 16:45 | disposition home health service (06) | DRG 191 ==
LOC: EMR 12:32 → EDBEDREQ 12:35 → 2E 12:38 → EDBEDREQ 13:24 → 4E 01-02 18:02
DX: J44.0 Chronic obstructive pulmonary disease with (acute) lower respiratory infection (principal); I24.9 Acute ischemic heart disease, unspecified; E87.2 Acidosis; F33.0 Major depressive disorder, recurrent, mild; J44.1 Chronic obstructive pulmonary disease with (acute) exacerbation; D69.6 Thrombocytopenia, unspecified; J20.9 Acute bronchitis, unspecified; G89.29 Other chronic pain; M54.9 Dorsalgia, unspecified; Z86.73 Personal history of transient ischemic attack (TIA), and cerebral infarction without residual deficits; F14.10 Cocaine abuse, uncomplicated; Z20.828 Contact with and (suspected) exposure to other viral communicable diseases; M19.90 Unspecified osteoarthritis, unspecified site; E87.6 Hypokalemia; R09.02 Hypoxemia; B34.9 Viral infection, unspecified; D64.9 Anemia, unspecified; I10 Essential (primary) hypertension; R07.81 Pleurodynia; R07.89 Other chest pain; Z91.81 History of falling; K21.9 Gastro-esophageal reflux disease without esophagitis; R91.1 Solitary pulmonary nodule; Z59.0 Homelessness; A08.8 Other specified intestinal infections; F12.11 Cannabis abuse, in remission; F17.200 Nicotine dependence, unspecified, uncomplicated
CPT/HCPCS: 36415; 71045; 80048; 80053; 80061; 80307; 81003; 82550; 82607; 82728; 82746; 82977; 83036; 83540; 83550; 83605; 83615; 83690; 83735; 83880; 84100; 84443; 84484; 84550; 85007; 85025; 85379; 85610; 85730; 86140; 86592; 86703; 86705; 86709; 86803; 87040; 87045; 87070; 87181; 87205; 87324; 87340; 87536; 93005; 93306; 94640; 94664; 96365; 96366; 96368; 96375; 97803; 99285; J7030; J7620; J8499

== ENCOUNTER 2020-01-14 06:25 | Inpatient (IN) | payer MEDICARE, MEDICAID ==
[~2020-01-14] VITALS: Ht 188 cm; Wt 87.5 kg
[2020-01-14] MEDS ORDERED: Albuterol/Ipratropium 3ml neb HHN PRN (09:00)
[2020-01-14] MEDS ORDERED: Theophylline ER 100mg ORAL SCH (09:00)
[2020-01-14] MEDS ORDERED: Nitroglycerin Subl 0.4mg tab SL PRN (09:00)
[2020-01-14] MEDS ORDERED: LORazepam Inj 2mg/ml 1ml IV PRN (09:00)
[2020-01-14] MEDS ORDERED: Promethazine/Codeine 5ml UD ORAL PRN (09:00)
[2020-01-14 09:24] VITALS: BP 154/89
--- NOTE | 2020-01-14 09:26 | NUR ---
ADMITTING NOTES: Pt was recently discharged from [facility] on 01/11 from [facility]E. Pt is homeless and lives in his truck. Pt has an IV placed from [facility] AC 22g, pt C/O chest pain 10/10 at [facility] but while here he just C/O of 4/10. Pt states he is no longer allergic to Nitroglycerin, Pt refused lasix and nitro at [facility]. While at [facility] he received breathing treatments and Solu-medrol. Pt is Ox4 calm and cooperative, made aware of patient arrival, belongings checked in and logged, physical assessment shows pitting edema in BLE +1-2, Pain in BLE with a rate of 3-4/10, pt on room air, vitals taken and logged and WNL, labs to be drawn, pt eating breakfast at bedside. Pt was taught call light use, orientated to hospital policies and room. Pt has bathroom privileges, pt ambulates steadily, gown placed, tele monitor placed.
--- NOTE | 2020-01-14 10:57 | NUR ---
CASE MANAGEMENT: INITIAL REVIEW 79 YO Delfin SUAREZ FROM [facility] CC: CP PMHx: COPD. HTN. SI:COPD EXACERBATION IS: SOLU MEDROL IV Q6H TYREE DUR PO Q12H PATIENT ADMITTED TO TELE 01/14/2020 DCP: "HOME" PLAN OF CARE: PULMO CONSULT CARDIO CONSULT Addendum: 01/14/20 at 1102 by Anna Edwards CM INTERQUAL MET
[2020-01-14] MEDS: Solu-MEDROL 125mg Inj IV SCH ×2 (11:11→17:10)
[2020-01-14] MEDS: Theophylline ER 100mg ORAL SCH ×2 (11:11→21:44)
--- NOTE | 2020-01-14 11:43 | Pulmonology Progress Note ---
Subjective ROS Limited/Unobtainable: Yes Constitutional: Reports: no symptoms HEENT: Repors: no symptoms Allergies: Coded Allergies: No Known Allergies (Unverified , 08/14/19) Objective Last 24 Hour Vital Signs Date Time Temp Pulse Resp B/P (MAP) Pulse Ox O2 Delivery O2 Flow Rate FiO2 01/14/20 09:24 95.9 103 22 154/89 (110) 97 01/14/20 09:23 Room Air General Appearance: cachetic HEENT: normocephalic, atraumatic Respiratory: chest wall non-tender, rhonchi - left, rhonchi - right Cardiovascular: normal peripheral pulses, normal rate Abdomen: normal bowel sounds, soft, non tender Genitourinary: normal external genitalia Extremities: no cyanosis, no clubbing Skin: no rash 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: 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 normal Lymphatic: no neck adenopathy Current Medications Medications (Trade) Dose Ordered Sig/Aguila Route PRN Reason Start Time Stop Time Status Last Admin Dose Admin Albuterol/ Ipratropium (Albuterol/ Ipratropium) 3 ml Q4H PRN HHN dyspnea 01/14/20 09:00 01/19/20 08:59 Dextrose (Dextrose 50%) 25 ml Q30M PRN IV Hypoglycemia 01/14/20 09:00 04/13/20 08:59 Dextrose (Dextrose 50%) 50 ml Q30M PRN IV Hypoglycemia 01/14/20 09:00 04/13/20 08:59 Heparin Sodium (Porcine) (Heparin 5000 units/ml) 5,000 units EVERY 12 HOURS SUBQ 01/14/20 21:00 02/28/20 20:59 Lorazepam (Ativan 2mg/ml 1ml) 0.5 mg Q4H PRN IV For Anxiety 01/14/20 09:00 01/21/20 08:59 Methylprednisolone Sodium Succinate (Solu-MEDROL) 60 mg EVERY 6 HOURS IV 01/14/20 12:00 04/13/20 11:59 01/14/20 11:11 Nitroglycerin (Ntg) 0.4 mg Q5M X 3 DOSES PRN SL Prn Chest Pain 01/14/20 09:00 02/13/20 08:59 Ondansetron HCl (Zofran) 4 mg Q6H PRN IVP Nausea & Vomiting 01/14/20 09:00 02/13/20 08:59 Promethazine HCl/ Codeine (Phenergan with Codeine) 5 ml Q6H PRN ORAL cough 01/14/20 09:00 02/13/20 08:59 Temazepam (Restoril) 15 mg HSPRN PRN ORAL Insomnia 01/14/20 09:00 01/21/20 08:59 Theophylline (Rigoberto-Dur) 100 mg EVERY 12 HOURS ORAL 01/14/20 10:30 04/13/20 10:29 01/14/20 11:11 Assessment/Plan Problems: (1) ACS (acute coronary syndrome) (2) Acute exacerbation of chronic obstructive airways disease (3) Emphysema (4) History of cocaine abuse (5) DJD (degenerative joint disease) (6) History of CVA (cerebrovascular accident) (7) Chronic back pain Assessment/Plan pt was discharged two days ago. He was [facility] to [facility] for chest pain and shortness of breath.He is transferred to [facility] for further treatment. Farhan Ortega MD Jan 14, 2020 11:43
[2020-01-14 12:00] VITALS: BP 128/74
[2020-01-14 13:18] LABS: HEMATOCRIT 37.1 % (42.0-52.0); HEMOGLOBIN 11.8 G/DL (14.2-18.0); MEAN CORPUSCULAR VOLUME 103 FL (80-99); PLATELET COUNT 166 K/UL (150-450); RED BLOOD COUNT 3.59 M/UL (4.70-6.10); WHITE BLOOD COUNT 9.1 K/UL (4.8-10.8)
[2020-01-14 13:24] LABS: ALANINE AMINOTRANSFERASE 46 U/L (12-78); ALBUMIN 3.3 G/DL (3.4-5.0); ALBUMIN/GLOBULIN RATIO 1.1 (1.0-2.7); ALKALINE PHOSPHATASE 43 U/L (46-116); ANION GAP 8 mmol/L (5-15); ASPARTATE AMINO TRANSFERASE 22 U/L (15-37); BILIRUBIN,TOTAL 0.4 MG/DL (0.2-1.0); BLOOD UREA NITROGEN 35 mg/dL (7-18); CALCIUM 7.3 MG/DL (8.5-10.1); CARBON DIOXIDE 29 MMOL/L (21-32); CHLORIDE 100 MMOL/L (98-107); CREATININE 1.1 MG/DL (0.55-1.30); POTASSIUM 3.9 MMOL/L (3.5-5.1); SODIUM 137 MMOL/L (136-145)
--- NOTE | 2020-01-14 13:39 | Cardiology Progress Note ---
Assessment/Plan Assessment/Plan [id number] Objective Last 24 Hour Vital Signs Date Time Temp Pulse Resp B/P (MAP) Pulse Ox O2 Delivery O2 Flow Rate FiO2 01/14/20 12:00 97.4 94 20 128/74 (92) 100 01/14/20 09:24 95.9 103 22 154/89 (110) 97 01/14/20 09:23 Room Air Laboratory Tests Test 01/14/20 12:55 White Blood Count 9.1 K/UL (4.8-10.8) Red Blood Count 3.59 M/UL (4.70-6.10) L Hemoglobin 11.8 G/DL (14.2-18.0) L Hematocrit 37.1 % (42.0-52.0) L Mean Corpuscular Volume 103 FL (80-99) H Mean Corpuscular Hemoglobin 32.8 PG (27.0-31.0) H Mean Corpuscular Hemoglobin Concent 31.7 G/DL (32.0-36.0) L Red Cell Distribution Width 15.0 % (11.6-14.8) H Platelet Count 166 K/UL (150-450) Mean Platelet Volume 7.1 FL (6.5-10.1) Neutrophils (%) (Auto) % (45.0-75.0) Lymphocytes (%) (Auto) % (20.0-45.0) Monocytes (%) (Auto) % (1.0-10.0) Eosinophils (%) (Auto) % (0.0-3.0) Basophils (%) (Auto) % (0.0-2.0) Neutrophils % (Manual) Pending Lymphocytes % (Manual) Pending Platelet Estimate Pending Platelet Morphology Pending Sodium Level Pending Potassium Level Pending Chloride Level Pending Carbon Dioxide Level Pending Blood Urea Nitrogen Pending Creatinine Pending Estimat Glomerular Filtration Rate Pending Glucose Level Pending Calcium Level Pending Magnesium Level Pending Total Bilirubin Pending Aspartate Amino Transf (AST/SGOT) Pending Alanine Aminotransferase (ALT/SGPT) Pending Alkaline Phosphatase Pending Troponin I Pending Total Protein Pending Albumin Pending Globulin Pending Taqueria Covarrubias MD Jan 14, 2020 13:39
--- NOTE | 2020-01-14 14:01 | History & Physical ---
History and Physical History & Physicial Ishmael Crowley MD Jan 14, 2020 14:01
[2020-01-14 16:00] VITALS: BP 161/95
--- NOTE | 2020-01-14 19:15 | NUR ---
NURSE NOTES: Received report from Eliza Goode RN. Pt in bed, alert, denies pain at this time. Call light within reach with instructions to use if assistance is needed, pt verbalized understanding.
--- NOTE | 2020-01-14 19:26 | NUR ---
HAND-OFF: Report given to Lolita OLMOS.
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
[2020-01-14 20:00] VITALS: BP 159/85
--- NOTE | 2020-01-14 21:29 | History and Physical Report ---
DATE OF ADMISSION: 01/14/2020 CHIEF COMPLAINT: Transfer from [facility] due to the chest pain. HISTORY OF PRESENT ILLNESS: This is a 79 years old gentleman with past medical history significant for COPD, emphysema, chronic smoker, hypertension, history of cocaine abuse, chronic back pain, pulmonary nodule, alcohol abuse, who presented to the hospital initially to [facility] complaining about chest pain and shortness of breath. The patient was recently admitted to [facility] from 12/30/2019 through 01/12/1020. At that time, the patient was complaining about shortness of breath and subjective fever, had a test that is positive for COVID-19 and the patient prior to discharge from the hospital was noted to be COVID negative. The patient was discharged from the [facility], went home, and started using cocaine and started having substernal chest pain associated with shortness of breath and the patient was presented to the [facility]. Shortly after initial evaluation at [facility], the patient was transferred back to [facility] for further evaluation and therapy. Subsequently, the patient was admitted to the hospital with chest pain induced by cocaine as well as COPD, emphysema with chronic smoker. PAST MEDICAL HISTORY AND PAST SURGICAL HISTORY: Significant for COPD, emphysema, chronic smoker, hypertension, cocaine abuse, alcohol abuse, chronic back pain, pulmonary nodule. MEDICATIONS: At home, please refer to medication reconciliation. ALLERGIES: No known drug allergies. SOCIAL HISTORY: The patient is a chronic smoker for years pack smoker. Alcohol abuse. Substance abuse, cocaine. The patient is homeless. FAMILY HISTORY: Noncontributory. REVIEW OF SYSTEMS: Mostly as above. Denies any dysuria, frequency, hematuria. Complained about pedal edema. Complained about shortness of breath. Complained about abdominal discomfort. Denies any hemoptysis or hematochezia. Denies any bright red blood per rectum. Denies any loss of consciousness. Denies any suicidal or homicidal ideation. PHYSICAL EXAMINATION: VITAL SIGNS: On admission to [place], the patient's temperature 95.9, pulse of 103, respirations 22, blood pressure 154/89. GENERAL: The patient is awake and responsive, in no acute distress, cachectic. HEAD AND NECK: Pupils are reactive to light. Extraocular movements intact. Neck was supple. No JVD. LUNGS: The patient has rhonchi on the left side greater than the right. HEART: S1, S2. Tachycardic. No murmurs or gallops. Distant heart sounds. ABDOMEN: Soft, nondistended, nontender. Mildly obese. EXTREMITIES: The patient has bilateral lower extremity +1 edema. RECTAL/GENITOURINARY: Refused and deferred. PSYCHIATRIC: Mood and affect is intact. NEUROLOGIC: Cranial nerves II through XII are grossly intact. The patient is moving all extremities. Gait was not assessed due to the patient's status. LABORATORY AND DIAGNOSTIC DATA: Laboratory from [facility], the patient's WBC of 9.1, hemoglobin of 11, hematocrit 37, platelets 166. Sodium 137, potassium 3.9, chloride 100, bicarbonate 29, BUN 35, and creatinine 1.1, and glucose is 218. Troponin less than 0.00. Noted the patient has a previous HIV test on 01/05/2020 with negative finding. Latest chest x-ray on 01/06/2020, no acute cardiopulmonary disease. ASSESSMENT: 1. Chest pain, most likely induced by cocaine. 2. Acute COPD exacerbation. 3. Emphysema, chronic smoker. 4. History of cocaine abuse. 5. Degenerative joint disease of the spine. 6. Prior history of stroke. 7. Lower back pain. 8. History of recent COVID-19 infection. PLAN: Admit the patient to monitored unit. We will follow up with Dr. Taqueria Covarrubias, Cardiology as well as Dr. Ortega from Pulmonary, Critical Care. Nebulizer treatment. Monitor laboratory. Code Status is Full Code. DVT prophylaxis, heparin subcutaneous. Ishmael Crowley M.D. DR: JUSTIN JOB#: [id number] CC:
[2020-01-14] MEDS: Heparin 5000 units/ml inj SUBQ SCH (21:47)
[2020-01-15] VITALS: BP 143/76
[2020-01-15] MEDS: Solu-MEDROL 125mg Inj IV SCH ×4 (01:27→21:54)
[2020-01-15 04:00] VITALS: BP 138/77
--- NOTE | 2020-01-15 07:10 | NUR ---
HAND-OFF: Report given to Eliza Goode RN. Pt denies pain at this time; in stable condition. Plan of care endorsed.
--- NOTE | 2020-01-15 07:35 | NUR ---
NURSE NOTES: Received patient up on bed, naked, tele box off, agitated. Patient has been agitated because shower is cold. Engineering previously came up and said that that is the warmest the water can get, patient informed but still persistent. RN tried to explain situation but patient still agitated and refusing to put back tele box, aggressive speech noted. Refused ativan. No SOB or acute distress. IV line intact. Call light within reach. Will continue plan of care.
[2020-01-15 07:53] VITALS: BP 181/94
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
[2020-01-15] MEDS: Theophylline ER 100mg ORAL SCH ×2 (08:53→21:54)
[2020-01-15] MEDS: Aspirin Baby 81mg ORAL SCH (08:53)
[2020-01-15] MEDS: Heparin 5000 units/ml inj SUBQ SCH ×2 (08:54→21:00)
[2020-01-15] MEDS ORDERED: HYDROcodone/Acetamin 5/325 tab ORAL PRN (10:15)
[2020-01-15 12:00] VITALS: BP 156/75
--- NOTE | 2020-01-15 13:53 | NUR ---
NURSE NOTES: Patient requesting for breathing treatment but RT wants a new covid test done and resulted first prior to administration. Patient refused. EIGHT SECTION BLOWER Mariana is aware, with orders noted and carried out.
--- NOTE | 2020-01-15 15:26 | Internal Med Progress Note ---
Subjective Date of Service: Jan 15, 2020 Physician Name Kyrie Connell Attending Physician Ishmael Crowley MD Current Medications Medications (Trade) Dose Ordered Sig/Aguila Route PRN Reason Start Time Stop Time Status Last Admin Dose Admin Acetaminophen/ Hydrocodone Bitart ([place] 5/325) 1 tab Q6H PRN ORAL For Pain 01/15/20 10:15 01/22/20 10:14 Albuterol Sulfate (Proventil MDI) 2 puff Q6H PRN INH Shortness of Breath 01/15/20 14:00 04/14/20 13:59 Albuterol/ Ipratropium (Albuterol/ Ipratropium) 3 ml Q4H PRN HHN dyspnea 01/14/20 09:00 01/19/20 08:59 01/14/20 21:50 Amlodipine Besylate (Norvasc) 10 mg DAILY ORAL 01/15/20 09:00 02/14/20 08:59 01/15/20 08:53 Aspirin (ASA) 81 mg DAILY ORAL 01/15/20 09:00 02/29/20 08:59 01/15/20 08:53 Clonidine HCl (Catapres Tab) 0.1 mg EVERY 8 HOURS ORAL 01/15/20 08:30 04/14/20 08:29 01/15/20 14:14 Dextrose (Dextrose 50%) 25 ml Q30M PRN IV Hypoglycemia 01/14/20 09:00 04/13/20 08:59 Dextrose (Dextrose 50%) 50 ml Q30M PRN IV Hypoglycemia 01/14/20 09:00 04/13/20 08:59 Furosemide (Lasix) 20 mg DAILY ORAL 01/15/20 09:00 02/14/20 08:59 01/15/20 08:53 Heparin Sodium (Porcine) (Heparin 5000 units/ml) 5,000 units EVERY 12 HOURS SUBQ 01/14/20 21:00 02/28/20 20:59 01/15/20 08:54 Lorazepam (Ativan 2mg/ml 1ml) 0.5 mg Q4H PRN IV For Anxiety 01/14/20 09:00 01/21/20 08:59 Methylprednisolone Sodium Succinate (Solu-MEDROL) 60 mg Q8HR IV 01/15/20 14:00 04/13/20 11:59 01/15/20 14:14 Nitroglycerin (Ntg) 0.4 mg Q5M X 3 DOSES PRN SL Prn Chest Pain 01/14/20 09:00 02/13/20 08:59 Ondansetron HCl (Zofran) 4 mg Q6H PRN IVP Nausea & Vomiting 01/14/20 09:00 02/13/20 08:59 Pantoprazole (Protonix) 40 mg DAILY ORAL 01/15/20 09:00 02/14/20 08:59 01/15/20 08:56 Promethazine HCl/ Codeine (Phenergan with Codeine) 5 ml Q6H PRN ORAL cough 01/14/20 09:00 02/13/20 08:59 Temazepam (Restoril) 15 mg HSPRN PRN ORAL Insomnia 01/14/20 09:00 01/21/20 08:59 01/14/20 21:45 Theophylline (Rigoberto-Dur) 100 mg EVERY 12 HOURS ORAL 01/14/20 10:30 04/13/20 10:29 01/15/20 08:53 Allergies: Coded Allergies: No Known Allergies (Unverified , 08/14/19) ROS Limited/Unobtainable: No Constitutional: Reports: no symptoms HEENT: Reports: no symptoms Cardiovascular: Reports: chest pain Respiratory: Reports: shortness of breath Gastrointestinal/Abdominal: Reports: no symptoms Genitourinary: Reports: no symptoms Neurologic/Psychiatric: Reports: no symptoms Subjective 79 YO M admitted with chest pain. Now COPD exacerbation. Cover for Int Oliver-Dr Crowley Objective Last Vital Signs Date Time Temp Pulse Resp B/P (MAP) Pulse Ox O2 Delivery O2 Flow Rate FiO2 01/15/20 14:14 156/75 01/15/20 12:00 96.3 102 20 93 01/15/20 09:00 Room Air 01/14/20 21:50 21 Intake and Output 01/14/20 01/15/20 19:00 07:00 Intake Total 400 ml 700 ml Balance 400 ml 700 ml Intake Oral 400 ml 700 ml # Voids 2 3 # Bowel Movements 1 1 Objective PHYSICAL EXAMINATION: GENERAL: The patient is awake and responsive, in no acute distress, cachectic. HEAD AND NECK: Pupils are reactive to light. Extraocular movements intact. Neck was supple. No JVD. LUNGS: The patient has rhonchi on the left side greater than the right. HEART: S1, S2. Tachycardic. No murmurs or gallops. Distant heart sounds. ABDOMEN: Soft, nondistended, nontender. Mildly obese. EXTREMITIES: The patient has bilateral lower extremity +1 edema. RECTAL/GENITOURINARY: Refused and deferred. PSYCHIATRIC: Mood and affect is intact. NEUROLOGIC: Cranial nerves II through XII are grossly intact. The patient is moving all extremities. Gait was not assessed due to the patient's status. Assessment/Plan Assessment/Plan ASSESSMENT: 1. Chest pain, most likely induced by cocaine. 2. Acute COPD exacerbation. 3. Emphysema, chronic smoker. 4. History of cocaine abuse. 5. Degenerative joint disease of the spine. 6. Prior history of stroke. 7. Lower back pain. 8. History of recent COVID-19 infection. PLAN: Admit the patient to monitored unit. We will follow up with Dr. Taqueria Covarrubias, Cardiology as well as Dr. Ortega from Pulmonary, Critical Care. Nebulizer treatment. Monitor laboratory. Code Status is Full Code. DVT prophylaxis, heparin subcutaneous. Kyrie Connell MD Jan 15, 2020 15:26
[2020-01-15 16:00] VITALS: BP 147/69
--- NOTE | 2020-01-15 16:47 | Cardiology Progress Note ---
Assessment/Plan Assessment/Plan The patient is stable, previously multiple eval Subjective Subjective The patient is resting comofrtably, watching TV, but reports chest pain, when asked Objective Last 24 Hour Vital Signs Date Time Temp Pulse Resp B/P (MAP) Pulse Ox O2 Delivery O2 Flow Rate FiO2 01/15/20 16:00 97.7 81 20 147/69 (95) 97 01/15/20 14:14 156/75 01/15/20 12:00 96.3 102 20 156/75 (102) 93 01/15/20 12:00 101 01/15/20 09:00 Room Air 01/15/20 08:53 124 181/94 01/15/20 08:52 181/94 01/15/20 08:00 108 01/15/20 07:53 96.1 124 20 181/94 (123) 94 01/15/20 04:00 97.8 90 24 138/77 (97) 95 01/15/20 04:00 97 01/15/20 00:00 100 01/15/20 00:00 100 01/15/20 00:00 97.5 89 24 143/76 (98) 95 01/14/20 21:50 89 20 100 Room Air 21 92 20 97 01/14/20 21:00 Room Air 01/14/20 20:00 97.5 89 24 159/85 (109) 96 01/14/20 20:00 92 01/14/20 20:00 92 General Appearance: no apparent distress EENT: PERRL/EOMI Neck: no JVD Rhythm: NSR Cardiovascular: systolic murmur Respiratory/Chest: expiratory wheezing Abdomen: soft Extremities: normal range of motion Intake and Output 01/14/20 01/15/20 19:00 07:00 Intake Total 400 ml 700 ml Balance 400 ml 700 ml Intake Oral 400 ml 700 ml # Voids 2 3 # Bowel Movements 1 1 Ольга Smith MD Jan 15, 2020 16:47
[2020-01-15] MEDS: Albuterol 90mcg Inhaler 8gm INH PRN ×2 (17:16→23:00)
--- NOTE | 2020-01-15 17:18 | NUR ---
NURSE NOTES: Patient brought in his own MDI but refuses to hand it over to RN to be given to the pharmacy. VY Peña, charge nurse and pharmacy made aware.
--- NOTE | 2020-01-15 19:52 | NUR ---
HAND-OFF: Report given to Mery OLMOS.
[2020-01-15 20:00] VITALS: BP 153/73
--- NOTE | 2020-01-15 20:00 | NUR ---
NURSE NOTES: Received patient sitting up in bed, agitated. A/o x4. RN tried to flush IV and explained that IV is not functioning but pt is upset. No SOB or acute distress. refusing to allow me to remove nonpatent IV, Call light within reach. Will continue plan of care and continue to monitor pt.
[2020-01-16] VITALS: BP 146/82
[2020-01-16 04:00] VITALS: BP 142/69
[2020-01-16] MEDS: Solu-MEDROL 125mg Inj IV SCH ×2 (06:00→18:00)
--- NOTE | 2020-01-16 07:00 | NUR ---
NURSE NOTES: Pt refused labs and IV insertion. Will endorse to day shift
--- NOTE | 2020-01-16 07:38 | NUR ---
NURSE NOTES: Received report from Julienne Sands RN. Patient sitting at edge of bed, feet dangling, eating breakfast, asking for salt, bed in lowest position, call light within reach, side rails up x 2. no c/o pain, no SOB, in no apparent distress. No IV access. Julienne Sands RN said she will attempt to place an IV.
--- NOTE | 2020-01-16 07:46 | Pulmonology Progress Note ---
Subjective ROS Limited/Unobtainable: No Allergies: Coded Allergies: No Known Allergies (Unverified , 08/14/19) Subjective afebrile, pulse ox stable on RA + intermittent SOB, occasional dry cough, no hemoptysis no wheezing Objective Last 24 Hour Vital Signs Date Time Temp Pulse Resp B/P (MAP) Pulse Ox O2 Delivery O2 Flow Rate FiO2 01/16/20 04:00 97.4 101 19 142/69 (93) 98 01/16/20 00:00 98.9 100 18 146/82 (103) 97 01/15/20 21:54 153/73 01/15/20 21:00 Room Air Room Air 01/15/20 20:00 104 01/15/20 20:00 97.7 111 19 153/73 (99) 98 01/15/20 16:00 97.7 81 20 147/69 (95) 97 01/15/20 16:00 106 01/15/20 14:14 156/75 01/15/20 12:00 96.3 102 20 156/75 (102) 93 01/15/20 12:00 101 01/15/20 09:00 Room Air 01/15/20 08:53 124 181/94 01/15/20 08:52 181/94 01/15/20 08:00 108 01/15/20 07:53 96.1 124 20 181/94 (123) 94 Intake and Output 01/15/20 01/16/20 19:00 07:00 Intake Total 1330 ml Balance 1330 ml Intake Oral 1330 ml # Voids 6 General Appearance: no acute distress, cachetic HEENT: normocephalic, atraumatic Respiratory: chest wall non-tender, decreased breath sounds, expiratory wheezing - few posterior exp wheezes Cardiovascular: normal peripheral pulses, tachycardia - low tachy Abdomen: normal bowel sounds, soft, non tender Extremities: no edema, pedal pulses normal Skin: no rash Neurologic: collections representative II-XII grossly normal, alert, oriented x 3, responsive - anxious Musculoskeletal: normal muscle bulk Current Medications Medications (Trade) Dose Ordered Sig/Aguila Route PRN Reason Start Time Stop Time Status Last Admin Dose Admin Acetaminophen/ Hydrocodone Bitart ([place] 5/325) 1 tab Q6H PRN ORAL For Pain 01/15/20 10:15 01/22/20 10:14 Albuterol Sulfate (Proventil MDI) 2 puff Q6H PRN INH Shortness of Breath 01/15/20 14:00 04/14/20 13:59 01/15/20 23:00 Albuterol/ Ipratropium (Albuterol/ Ipratropium) 3 ml Q4H PRN HHN dyspnea 01/14/20 09:00 01/19/20 08:59 01/14/20 21:50 Amlodipine Besylate (Norvasc) 10 mg DAILY ORAL 01/15/20 09:00 02/14/20 08:59 01/15/20 08:53 Aspirin (ASA) 81 mg DAILY ORAL 01/15/20 09:00 02/29/20 08:59 01/15/20 08:53 Clonidine HCl (Catapres Tab) 0.1 mg EVERY 8 HOURS ORAL 01/15/20 08:30 04/14/20 08:29 01/15/20 21:54 Dextrose (Dextrose 50%) 25 ml Q30M PRN IV Hypoglycemia 01/14/20 09:00 04/13/20 08:59 Dextrose (Dextrose 50%) 50 ml Q30M PRN IV Hypoglycemia 01/14/20 09:00 04/13/20 08:59 Furosemide (Lasix) 20 mg DAILY ORAL 01/15/20 09:00 02/14/20 08:59 01/15/20 08:53 Heparin Sodium (Porcine) (Heparin 5000 units/ml) 5,000 units EVERY 12 HOURS SUBQ 01/14/20 21:00 02/28/20 20:59 01/15/20 08:54 Lorazepam (Ativan 2mg/ml 1ml) 0.5 mg Q4H PRN IV For Anxiety 01/14/20 09:00 01/21/20 08:59 Methylprednisolone Sodium Succinate (Solu-MEDROL) 60 mg Q8HR IV 01/15/20 14:00 04/13/20 11:59 01/15/20 21:54 Nitroglycerin (Ntg) 0.4 mg Q5M X 3 DOSES PRN SL Prn Chest Pain 01/14/20 09:00 02/13/20 08:59 Ondansetron HCl (Zofran) 4 mg Q6H PRN IVP Nausea & Vomiting 01/14/20 09:00 02/13/20 08:59 Pantoprazole (Protonix) 40 mg DAILY ORAL 01/15/20 09:00 02/14/20 08:59 01/15/20 08:56 Promethazine HCl/ Codeine (Phenergan with Codeine) 5 ml Q6H PRN ORAL cough 01/14/20 09:00 02/13/20 08:59 Temazepam (Restoril) 15 mg HSPRN PRN ORAL Insomnia 01/14/20 09:00 01/21/20 08:59 01/14/20 21:45 Theophylline (Rigoberto-Dur) 100 mg EVERY 12 HOURS ORAL 01/14/20 10:30 04/13/20 10:29 01/15/20 21:54 Assessment/Plan Assessment/Plan ASSESSMENT Atypical CP Acute COPD exacerbation Emphysema History of tobacco abuse -quit Cocaine abuse DJD of spine HTN with HTN urgency Hx of CVA History of recent COVID-19 infection PLAN OF CARE tele O2 titrate to keep sat > 90% pulmonary toilet with MDI Vanna COVID test x 1 negative on last admission ( declined the 2 nd testing at that time, remained afebrile and isolation was dc as per ID rec) declined testing this admission as well IV steroids and taper, GI prophylaxis added trial of theophylline SCX if able CXR and rib X ray if agrees- declining for now a/tussive prn DVT prophylaxis start clonidine as before and Lasix monitor volumes , check pro BNP monitor renal parameters and lytes correct as needed CP likely atypical as per cardio 1st troponin negative , ECG no acute ischemic changes this am troponin pending echo with pEF 60% no evidence of LVH, no evidence of WMA RVSP of 30 c/w with mild pulmonary hypertension resume ASA on prior admission x-ray of the ribs was ordered to rule out rib fracture , which he declined 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
[2020-01-16 08:00] VITALS: BP 168/86
--- NOTE | 2020-01-16 08:32 | NUR ---
HAND-OFF: Report given to Torsten Gasca RN.
--- NOTE | 2020-01-16 08:33 | NUR ---
NURSE NOTES: Left message on voicemail of Dr. Ishmael Crowley reporting patient refusing to get an IV access placed, refusing lab draws, and refusing to wear the five lead compliance monitor.
[2020-01-16] MEDS: Aspirin Baby 81mg ORAL SCH (08:41)
[2020-01-16] MEDS: Theophylline ER 100mg ORAL SCH ×2 (08:41→21:32)
[2020-01-16] MEDS: Heparin 5000 units/ml inj SUBQ SCH ×2 (08:48→21:32)
[2020-01-16 12:00] VITALS: BP 137/73
[2020-01-16] MEDS ORDERED: Albuterol/Ipratropium 3ml neb HHN PRN ×3 (15:15→19:15)
--- NOTE | 2020-01-16 15:26 | Internal Med Progress Note ---
Subjective Date of Service: Jan 16, 2020 Physician Name Kyrie Connell Attending Physician Ishmael Crowley MD Current Medications Medications (Trade) Dose Ordered Sig/Aguila Route PRN Reason Start Time Stop Time Status Last Admin Dose Admin Acetaminophen/ Hydrocodone Bitart ([place] 5/325) 1 tab Q6H PRN ORAL For Pain 01/15/20 10:15 01/22/20 10:14 Albuterol/ Ipratropium (Albuterol/ Ipratropium) 3 ml Q4H PRN HHN Shortness of Breath 01/16/20 15:15 01/21/20 15:14 Amlodipine Besylate (Norvasc) 10 mg DAILY ORAL 01/15/20 09:00 02/14/20 08:59 01/16/20 08:45 Aspirin (ASA) 81 mg DAILY ORAL 01/15/20 09:00 02/29/20 08:59 01/16/20 08:41 Clonidine HCl (Catapres Tab) 0.1 mg EVERY 8 HOURS ORAL 01/15/20 08:30 04/14/20 08:29 01/16/20 08:18 Dextrose (Dextrose 50%) 25 ml Q30M PRN IV Hypoglycemia 01/14/20 09:00 04/13/20 08:59 Dextrose (Dextrose 50%) 50 ml Q30M PRN IV Hypoglycemia 01/14/20 09:00 04/13/20 08:59 Furosemide (Lasix) 20 mg DAILY ORAL 01/15/20 09:00 02/14/20 08:59 01/15/20 08:53 Heparin Sodium (Porcine) (Heparin 5000 units/ml) 5,000 units EVERY 12 HOURS SUBQ 01/14/20 21:00 02/28/20 20:59 01/16/20 08:48 Lorazepam (Ativan 2mg/ml 1ml) 0.5 mg Q4H PRN IV For Anxiety 01/14/20 09:00 01/21/20 08:59 Methylprednisolone Sodium Succinate (Solu-MEDROL) 60 mg Q12H IV 01/16/20 18:00 04/15/20 17:59 Nitroglycerin (Ntg) 0.4 mg Q5M X 3 DOSES PRN SL Prn Chest Pain 01/14/20 09:00 02/13/20 08:59 Ondansetron HCl (Zofran) 4 mg Q6H PRN IVP Nausea & Vomiting 01/14/20 09:00 02/13/20 08:59 Pantoprazole (Protonix) 40 mg DAILY ORAL 01/15/20 09:00 02/14/20 08:59 01/16/20 08:41 Promethazine HCl/ Codeine (Phenergan with Codeine) 5 ml Q6H PRN ORAL cough 01/14/20 09:00 02/13/20 08:59 Temazepam (Restoril) 15 mg HSPRN PRN ORAL Insomnia 01/14/20 09:00 01/21/20 08:59 01/14/20 21:45 Theophylline (Rigoberto-Dur) 100 mg EVERY 12 HOURS ORAL 01/14/20 10:30 04/13/20 10:29 01/16/20 08:41 Allergies: Coded Allergies: No Known Allergies (Unverified , 08/14/19) ROS Limited/Unobtainable: No Constitutional: Reports: no symptoms HEENT: Reports: no symptoms Cardiovascular: Reports: chest pain Respiratory: Reports: shortness of breath Gastrointestinal/Abdominal: Reports: no symptoms Genitourinary: Reports: no symptoms Neurologic/Psychiatric: Reports: no symptoms Subjective 79 YO M admitted with chest pain. Now COPD exacerbation. Cover for Int Med-Dr Crowley Objective Last Vital Signs Date Time Temp Pulse Resp B/P (MAP) Pulse Ox O2 Delivery O2 Flow Rate FiO2 01/16/20 12:00 96.9 92 19 137/73 (94) 94 01/16/20 08:50 Room Air Room Air 01/14/20 21:50 21 Intake and Output 01/15/20 01/16/20 19:00 07:00 Intake Total 1330 ml Balance 1330 ml Intake Oral 1330 ml # Voids 6 Objective PHYSICAL EXAMINATION: GENERAL: The patient is awake and responsive, in no acute distress, cachectic. HEAD AND NECK: Pupils are reactive to light. Extraocular movements intact. Neck was supple. No JVD. LUNGS: The patient has rhonchi on the left side greater than the right. HEART: S1, S2. Tachycardic. No murmurs or gallops. Distant heart sounds. ABDOMEN: Soft, nondistended, nontender. Mildly obese. EXTREMITIES: The patient has bilateral lower extremity +1 edema. RECTAL/GENITOURINARY: Refused and deferred. PSYCHIATRIC: Mood and affect is intact. NEUROLOGIC: Cranial nerves II through XII are grossly intact. The patient is moving all extremities. Gait was not assessed due to the patient's status. Assessment/Plan Assessment/Plan ASSESSMENT: 1. Atypical Chest pain, most likely induced by cocaine. 2. Acute COPD exacerbation. 3. Emphysema, chronic smoker. 4. History of cocaine abuse. 5. Degenerative joint disease of the spine. 6. Prior history of stroke. 7. Lower back pain. 8. History of recent COVID-19 infection. PLAN: 1. Admit the patient to monitored unit. 2. Dr. Taqueria Covarrubias=Cardiology 3. Dr. Farhan Ortega = Pulmonary, Critical Care. Nebulizer treatment. 4. Code Status is Full Code. 5. DVT prophylaxis=heparin subcutaneous. Kyrie Connell MD Jan 16, 2020 15:26
[2020-01-16 16:00] VITALS: BP 130/80
[2020-01-16] MEDS ORDERED: Nitroglycerin Subl 0.4mg tab SL PRN ×2 (16:00→16:15)
--- NOTE | 2020-01-16 16:05 | NUR ---
NURSE NOTES: Left message at voicemail of Dr. Ishmael Crowley notifying that patient refusing IV access.
[2020-01-16] MEDS ORDERED: Promethazine/Codeine 5ml UD ORAL PRN ×2 (16:15→21:00)
[2020-01-16] MEDS ORDERED: HYDROcodone/Acetamin 5/325 tab ORAL PRN ×2 (16:15)
[2020-01-16] MEDS ORDERED: LORazepam Inj 2mg/ml 1ml IV PRN ×2 (17:00)
--- NOTE | 2020-01-16 17:00 | NUR ---
NURSE NOTES: Received report from NICKOLAS Sarmiento. Patient A&Ox4. On room air. No IV access. Patient refused new IV access. Bed in lowest position with call light right in reach. Will continue with plan of care.
--- NOTE | 2020-01-16 17:45 | Cardiology Progress Note ---
Assessment/Plan Assessment/Plan The patient is stable, previously multiple eval Subjective Subjective The patient is resting comfortably, watching TV, but reports chest pain, when asked Objective Last 24 Hour Vital Signs Date Time Temp Pulse Resp B/P (MAP) Pulse Ox O2 Delivery O2 Flow Rate FiO2 01/16/20 16:00 97.9 96 19 130/80 (97) 98 01/16/20 15:45 137/73 01/16/20 12:00 96.9 92 19 137/73 (94) 94 01/16/20 08:50 Room Air Room Air 01/16/20 08:45 113 168/86 01/16/20 08:18 168/86 01/16/20 08:00 97.1 113 20 168/86 (113) 96 01/16/20 04:00 97.4 101 19 142/69 (93) 98 01/16/20 00:00 98.9 100 18 146/82 (103) 97 01/15/20 21:54 153/73 01/15/20 21:01 Room Air Room Air 01/15/20 20:00 104 01/15/20 20:00 97.7 111 19 153/73 (99) 98 General Appearance: no apparent distress Neck: non-tender Rhythm: NSR Cardiovascular: regular rhythm Respiratory/Chest: rhonchi - bilaterally Abdomen: no organomegaly Intake and Output 01/15/20 01/16/20 19:00 07:00 Intake Total 1330 ml Balance 1330 ml Intake Oral 1330 ml # Voids 6 Ольга Smith MD Jan 16, 2020 17:45
[2020-01-16] MEDS ORDERED: Solu-MEDROL 125mg Inj IV SCH ×2 (18:00)
--- NOTE | 2020-01-16 18:00 | NUR ---
NURSE NOTES: Patient has become aggressive and belligerent after being told he could not have a breathing treatment until he tests negative for COVID 19. Both RN and RT offered patient MDI as an alternative which made him more aggressive. Charge nurse aware.
--- NOTE | 2020-01-16 19:18 | NUR ---
HAND-OFF: Report given to NICKOLAS Holt.
--- NOTE | 2020-01-16 19:25 | NUR ---
NURSE NOTES: Pt. received from NICKOLAS Brunson. Pt. AAOx4, breathing room air, no indications of respiratory distress, no complaints of pain at this time. Pt is without IV access, aware, and pt. refuses requests to attempt IV reinsertion. Pt. educated that he is in isolation pending results and clearance from physician. Bed is low and locked, side rails x2 up, and call light in reach.
[2020-01-16 20:00] VITALS: BP 149/75
--- NOTE | 2020-01-16 20:45 | NUR ---
NURSE NOTES: Pt. ambulating in hallway to nurses station, pt. requested to return to room due to current isolation precautions. Pt. refusing and verbally aggressive, yelling and cussing at the primary nurse. Pt. was escorted back to room and which point the pt. is refusing to keep the door closed per isolation protocol. Pt. continued to yell aggressively and curse at the primary nurse. Security was called but pt. returned to bed and permitted room door to be closed prior to security intervention. Charge nurse aware.
[2020-01-16] MEDS ORDERED: Theophylline ER 100mg ORAL SCH (21:00)
[2020-01-16] MEDS ORDERED: Heparin 5000 units/ml inj SUBQ SCH (21:00)
[2020-01-17] VITALS: BP 136/70
[2020-01-17 04:00] VITALS: BP 148/88
[2020-01-17] MEDS: Solu-MEDROL 125mg Inj IV SCH (05:39)
--- NOTE | 2020-01-17 05:54 | NUR ---
NURSE NOTES: Attempted to reinforce pt.'s isolation status and associated protocols, pt. verbally aggressive, yelling and cussing. Charge nurse aware.
[2020-01-17] MEDS ORDERED: Albuterol 90mcg Inhaler 8gm INH PRN ×2 (07:30→13:30)
--- NOTE | 2020-01-17 07:36 | NUR ---
HAND-OFF: Report given to NICKOLAS Nieves.
--- NOTE | 2020-01-17 08:00 | NUR ---
NURSE NOTES: received patient in bed, no sign of distress, no complaint of pain or discomfort. Patient requested another breakfast tray, notified dietary. No IV access, dr roney per NOC NICKOLAS Holt report. Call light within easy reach, siderails up x2, bed locked at lowest position possible. Will continue to monitor patient and follow up with the plan of care.
[2020-01-17 09:00] VITALS: BP 112/61
[2020-01-17] MEDS ORDERED: Aspirin Baby 81mg ORAL SCH (09:00)
[2020-01-17] MEDS: Theophylline ER 100mg ORAL SCH ×2 (10:01→21:46)
[2020-01-17] MEDS: Aspirin Baby 81mg ORAL SCH (10:03)
[2020-01-17] MEDS: Heparin 5000 units/ml inj SUBQ SCH ×2 (10:12→21:49)
[2020-01-17 12:00] VITALS: BP 116/65
--- NOTE | 2020-01-17 13:24 | Internal Med Progress Note ---
Subjective Date of Service: Jan 17, 2020 Physician Name Kyrie Connell Attending Physician Ishmael Crowley MD Current Medications Medications (Trade) Dose Ordered Sig/Aguila Route PRN Reason Start Time Stop Time Status Last Admin Dose Admin Acetaminophen/ Hydrocodone Bitart ([place] 5/325) 1 tab Q6H PRN ORAL For Pain 01/16/20 16:15 01/22/20 10:14 Albuterol Sulfate (Proventil MDI) 2 puff Q6H PRN INH Shortness of Breath 01/17/20 07:30 04/16/20 07:29 01/17/20 10:00 Amlodipine Besylate (Norvasc) 10 mg DAILY ORAL 01/17/20 09:00 02/14/20 08:59 Aspirin (ASA) 81 mg DAILY ORAL 01/17/20 09:00 02/29/20 08:59 01/17/20 10:03 Clonidine HCl (Catapres Tab) 0.1 mg EVERY 8 HOURS ORAL 01/16/20 22:00 04/14/20 08:29 01/17/20 05:40 Dextrose (Dextrose 50%) 25 ml Q30M PRN IV Hypoglycemia 01/16/20 16:30 04/13/20 08:59 Dextrose (Dextrose 50%) 50 ml Q30M PRN IV Hypoglycemia 01/16/20 16:30 04/13/20 08:59 Furosemide (Lasix) 20 mg DAILY ORAL 01/17/20 09:00 02/14/20 08:59 01/17/20 10:02 Heparin Sodium (Porcine) (Heparin 5000 units/ml) 5,000 units EVERY 12 HOURS SUBQ 01/16/20 21:00 02/28/20 20:59 01/17/20 10:12 Lorazepam (Ativan 2mg/ml 1ml) 0.5 mg Q4H PRN IV For Anxiety 01/16/20 17:00 01/21/20 08:59 Methylprednisolone Sodium Succinate (Solu-MEDROL) 60 mg Q12H IV 01/16/20 18:00 04/15/20 17:59 Nitroglycerin (Ntg) 0.4 mg Q5M X 3 DOSES PRN SL Prn Chest Pain 01/16/20 16:15 02/13/20 08:59 Ondansetron HCl (Zofran) 4 mg Q6H PRN IVP Nausea & Vomiting 01/16/20 16:15 02/13/20 16:14 Pantoprazole (Protonix) 40 mg DAILY ORAL 01/17/20 09:00 02/14/20 08:59 01/17/20 10:02 Promethazine HCl/ Codeine (Phenergan with Codeine) 5 ml Q6H PRN ORAL cough 01/16/20 16:15 02/13/20 16:14 Temazepam (Restoril) 15 mg HSPRN PRN ORAL Insomnia 01/16/20 16:15 01/23/20 16:14 Theophylline (Rigoberto-Dur) 100 mg EVERY 12 HOURS ORAL 01/16/20 21:00 04/13/20 10:29 01/17/20 10:01 Allergies: Coded Allergies: No Known Allergies (Unverified , 08/14/19) ROS Limited/Unobtainable: No Constitutional: Reports: no symptoms HEENT: Reports: no symptoms Cardiovascular: Reports: chest pain Respiratory: Reports: shortness of breath Gastrointestinal/Abdominal: Reports: no symptoms Genitourinary: Reports: no symptoms Neurologic/Psychiatric: Reports: no symptoms Subjective 79 YO M admitted with chest pain. Now COPD exacerbation. Cover for Int Med-Dr Crowley Objective Last Vital Signs Date Time Temp Pulse Resp B/P (MAP) Pulse Ox O2 Delivery O2 Flow Rate FiO2 01/17/20 09:00 98.4 63 20 112/61 (78) 98 01/17/20 09:00 Room Air Room Air 01/14/20 21:50 21 Microbiology Date/Time Source Procedure Growth Status 01/16/20 13:49 Nasopharynx Coronavirus COVID-19 PCR ([facility]) - Final Complete Intake and Output 01/16/20 01/17/20 19:00 07:00 Intake Total 1420 ml 1200 ml Output Total 500 ml 800 ml Balance 920 ml 400 ml Intake Oral 1420 ml 1200 ml Output Urine Total 500 ml 800 ml # Voids 4 3 Objective PHYSICAL EXAMINATION: GENERAL: The patient is awake and responsive, in no acute distress, cachectic. HEAD AND NECK: Pupils are reactive to light. Extraocular movements intact. Neck was supple. No JVD. LUNGS: The patient has rhonchi on the left side greater than the right. HEART: S1, S2. Tachycardic. No murmurs or gallops. Distant heart sounds. ABDOMEN: Soft, nondistended, nontender. Mildly obese. EXTREMITIES: The patient has bilateral lower extremity +1 edema. RECTAL/GENITOURINARY: Refused and deferred. PSYCHIATRIC: Mood and affect is intact. NEUROLOGIC: Cranial nerves II through XII are grossly intact. The patient is moving all extremities. Gait was not assessed due to the patient's status. Assessment/Plan Assessment/Plan ASSESSMENT: 1. Atypical Chest pain, most likely induced by cocaine. 2. Acute COPD exacerbation. 3. Emphysema, chronic smoker. 4. History of cocaine abuse. 5. Degenerative joint disease of the spine. 6. Prior history of stroke. 7. Lower back pain. 8. History of recent COVID-19 infection. PLAN: 1. Admit the patient to monitored unit. 2. Dr. Taqueria Covarrubias=Cardiology 3. Dr. Farhan Ortega = Pulmonary, Critical Care. Nebulizer treatment. 4. Code Status is Full Code. 5. DVT prophylaxis=heparin subcutaneous. Kyrie Connell MD Jan 17, 2020 13:24
--- NOTE | 2020-01-17 13:33 | Pulmonology Progress Note ---
Subjective ROS Limited/Unobtainable: No Constitutional: Reports: no symptoms HEENT: Repors: no symptoms Allergies: Coded Allergies: No Known Allergies (Unverified , 08/14/19) Objective Last 24 Hour Vital Signs Date Time Temp Pulse Resp B/P (MAP) Pulse Ox O2 Delivery O2 Flow Rate FiO2 01/17/20 09:00 98.4 63 20 112/61 (78) 98 01/17/20 09:00 63 112/61 01/17/20 09:00 Room Air Room Air 01/17/20 05:40 148/88 01/17/20 04:00 97.7 89 20 148/88 (108) 96 01/17/20 00:00 97.2 100 22 136/70 (92) 96 01/16/20 22:39 149/75 01/16/20 21:00 Room Air Room Air 01/16/20 20:00 97.0 97 22 149/75 (99) 97 01/16/20 16:00 97.9 96 19 130/80 (97) 98 01/16/20 15:45 137/73 Intake and Output 01/16/20 01/17/20 19:00 07:00 Intake Total 1420 ml 1200 ml Output Total 500 ml 800 ml Balance 920 ml 400 ml Intake Oral 1420 ml 1200 ml Output Urine Total 500 ml 800 ml # Voids 4 3 General Appearance: no acute distress, cachetic HEENT: normocephalic, atraumatic Respiratory: chest wall non-tender, decreased breath sounds, expiratory wheezing - few posterior exp wheezes Cardiovascular: normal peripheral pulses, tachycardia - low tachy Abdomen: normal bowel sounds, soft, non tender Extremities: no edema, pedal pulses normal Skin: no rash Neurologic: pattern stamper II-XII grossly normal, alert, oriented x 3, responsive - anxious Musculoskeletal: normal muscle bulk Microbiology Date/Time Source Procedure Growth Status 01/16/20 13:49 Nasopharynx Coronavirus COVID-19 PCR ([facility]) - Final Complete Current Medications Medications (Trade) Dose Ordered Sig/Aguila Route PRN Reason Start Time Stop Time Status Last Admin Dose Admin Acetaminophen/ Hydrocodone Bitart ([place] 5/325) 1 tab Q6H PRN ORAL For Pain 01/16/20 16:15 01/22/20 10:14 Albuterol Sulfate (Proventil MDI) 2 puff Q6H PRN INH Shortness of Breath 01/17/20 07:30 04/16/20 07:29 01/17/20 10:00 Amlodipine Besylate (Norvasc) 10 mg DAILY ORAL 01/17/20 09:00 02/14/20 08:59 Aspirin (ASA) 81 mg DAILY ORAL 01/17/20 09:00 02/29/20 08:59 01/17/20 10:03 Clonidine HCl (Catapres Tab) 0.1 mg EVERY 8 HOURS ORAL 01/16/20 22:00 04/14/20 08:29 01/17/20 05:40 Dextrose (Dextrose 50%) 25 ml Q30M PRN IV Hypoglycemia 01/16/20 16:30 04/13/20 08:59 Dextrose (Dextrose 50%) 50 ml Q30M PRN IV Hypoglycemia 01/16/20 16:30 04/13/20 08:59 Furosemide (Lasix) 20 mg DAILY ORAL 01/17/20 09:00 02/14/20 08:59 01/17/20 10:02 Heparin Sodium (Porcine) (Heparin 5000 units/ml) 5,000 units EVERY 12 HOURS SUBQ 01/16/20 21:00 02/28/20 20:59 01/17/20 10:12 Lorazepam (Ativan 2mg/ml 1ml) 0.5 mg Q4H PRN IV For Anxiety 01/16/20 17:00 01/21/20 08:59 Methylprednisolone Sodium Succinate (Solu-MEDROL) 60 mg Q12H IV 01/16/20 18:00 04/15/20 17:59 Nitroglycerin (Ntg) 0.4 mg Q5M X 3 DOSES PRN SL Prn Chest Pain 01/16/20 16:15 02/13/20 08:59 Ondansetron HCl (Zofran) 4 mg Q6H PRN IVP Nausea & Vomiting 01/16/20 16:15 02/13/20 16:14 Pantoprazole (Protonix) 40 mg DAILY ORAL 01/17/20 09:00 02/14/20 08:59 01/17/20 10:02 Promethazine HCl/ Codeine (Phenergan with Codeine) 5 ml Q6H PRN ORAL cough 01/16/20 16:15 02/13/20 16:14 Temazepam (Restoril) 15 mg HSPRN PRN ORAL Insomnia 01/16/20 16:15 01/23/20 16:14 Theophylline (Rigoberto-Dur) 100 mg EVERY 12 HOURS ORAL 01/16/20 21:00 04/13/20 10:29 01/17/20 10:01 Assessment/Plan Problems: (1) ACS (acute coronary syndrome) (2) Acute exacerbation of chronic obstructive airways disease (3) Emphysema (4) History of cocaine abuse (5) DJD (degenerative joint disease) (6) History of CVA (cerebrovascular accident) (7) Chronic back pain Assessment/Plan increase the frequency of Albuterol. Pt is still short of breath titrate fio2 to sat of 92 pain management check sputum watch BP on Lasix 20 PO taper down Solumedrol to 40QD dvt prophylaxis. Farhan Ortega MD Jan 17, 2020 13:33
--- NOTE | 2020-01-17 14:14 | NUR ---
CASE MANAGEMENT:REVIEW SI;ACS. COPOD W/ACUTE EXACERBATION. EMPHYSEMA. 98.6 100 22 148/88 96% ON RA IS;SOLU-MEDROL IV LASIX PO ASA PO PROVENTIL INH HEPARIN SUBQ TYREE-DUR PO PHENERGAN W/CODEINE PO TRANSFERRED FROM TELE TO MED SURG ON 01/16/20 @ 0877 MED SURG STATUS DCP;PATIENT IS HOMELESS PLAN; TITRATE IV SOLU-MEDROL DVT PPX INCREASE ALBUTEROL FREQUENCY
--- NOTE | 2020-01-17 15:53 | NUR ---
CHARGE NURSE NOTE: COVID 19 neg. Spoke with , she will see pt tomorrow and remove covid 19 isolation precautions.
[2020-01-17 16:00] VITALS: BP 127/79
--- NOTE | 2020-01-17 19:30 | NUR ---
HAND-OFF: Report given to NICKOLAS Vigil.
--- NOTE | 2020-01-17 19:35 | NUR ---
NURSE NOTES: Received report from Fidelia OLMOS. The patient is alert and oriented x4 but seem to be resistance with care and does not want his body to be check. The resp is even and unlabored and the bilateral lung sounds clear on auscultation. The resident does not seen to be in any distress at this time. Will continue to monitor
[2020-01-17 20:00] VITALS: BP 146/77
[2020-01-18] VITALS: BP 140/79
[2020-01-18 04:00] VITALS: BP 142/75
--- NOTE | 2020-01-18 05:57 | NUR ---
NURSE NOTES: The resident is alert and oriented x4 and was able to verbalized his needs. He was given snacks multiple time last night. Some level of anxiety and agitations also noted. He refused body assessment and also refused IV insertion same as reported from previous shift. However he took his medication as ordered well tolerated and did not complain of any pain. Resp is even and unlabored and He remained on 2 liters of oxygen via NC well tolerated. Will continue to monitor
--- NOTE | 2020-01-18 07:24 | NUR ---
HAND-OFF: Report given to Leonardo OLMOS.
[2020-01-18 08:11] VITALS: BP 138/92
[2020-01-18] MEDS: Aspirin Baby 81mg ORAL SCH (08:16)
[2020-01-18] MEDS: Theophylline ER 100mg ORAL SCH ×2 (08:16→20:17)
[2020-01-18] MEDS: Heparin 5000 units/ml inj SUBQ SCH ×2 (08:16→20:18)
[2020-01-18] MEDS ORDERED: Solu-MEDROL 40mg Inj IVP SCH (09:00)
--- NOTE | 2020-01-18 09:50 | NUR ---
NURSE NOTES: PT AXOX4, REFUSING LAB DRAWS. PT REFUSED LASIX AND IV SOLU-MEDROL. PT STATES THE LASIX MAKES HIM URINATE TOO MUCH. RN EDUCATED PT THAT SIDE EFFECT IS INCREASE IN URINATION BECAUSE IT IS GETTING RID OF EXTRA FLUID IN THE BODY. PT CONTINUED TO REFUSE, YELLING "IT MAKES ME PEE TOO MUCH! I DON'T WANT IT!". PT REFUSING IV ACCESS. RN EDUCATED PT IV ACCESS IS NECESSARY IN CASE OF EMERGENCY AND FOR SOLU-MEDROL TO DECREASE INFLAMMATION OF LUNGS. PT REFUSED, STATING "I GOT A BUBBLE ON MY LAST ONE! I TOLD YOU NO ONE'S GONNA PUT A NEW ONE!". PT URINATES IN URINAL AND AMBULATES TO BATHROOM. IN NO APPARENT DISTRESS AT THIS TIME. PT ABLE TO DEMONSTRATE HOW TO USE CALL LIGHT FOR ASSISTANCE. PT WITH SOB WITH EXERTION AND 2L NC. WILL CONTINUE TO MONITOR.
--- NOTE | 2020-01-18 09:58 | NUR ---
WEATHER FORCASTER NOTE PT is well known to [facility]. Pt was last admitted 12/30/19-01/12/20. Pt presents as A&O4x and labile. Pt was discharged to his friend, Diane gong. Pt reports he arrived his friend, Diane gong but he had asthma attack then he was taken to the hospital. PT receives SSI and has some money available for this month. Pt does not recall Elida's contact number. Pt has hx of AMA and has been uncooperative w/ DC planning. Pt was offered SNF but pt also refused. PT denied current substance abuse. SW offered a placement assistance but pt refused. Pt stated "I KNOW WHERE I AM GOING." SW explained negative ramification of unlicensed facilities/self-directing. PT also stated "I DON'T WANT TO TALK NO MORE. MY BLOOD PRESSURE WILL GO UP".
[2020-01-18 11:48] VITALS: BP 132/89
--- NOTE | 2020-01-18 12:37 | Pulmonology Progress Note ---
Subjective ROS Limited/Unobtainable: No Constitutional: Reports: no symptoms HEENT: Repors: no symptoms Allergies: Coded Allergies: No Known Allergies (Unverified , 08/14/19) Objective Last 24 Hour Vital Signs Date Time Temp Pulse Resp B/P (MAP) Pulse Ox O2 Delivery O2 Flow Rate FiO2 01/18/20 11:48 98.2 85 20 132/89 (103) 96 01/18/20 09:00 Nasal Cannula 2.0 Room Air 01/18/20 08:16 87 138/92 01/18/20 08:11 97.8 87 20 138/92 (107) 95 01/18/20 05:47 142/75 01/18/20 04:00 97.7 95 17 142/75 (97) 96 01/18/20 00:00 97.7 96 20 140/79 (99) 96 01/17/20 21:53 146/77 01/17/20 21:00 Room Air Room Air 01/17/20 20:00 97.9 101 20 146/77 (100) 96 01/17/20 16:00 97.7 95 20 127/79 (95) 98 01/17/20 14:00 116/65 Intake and Output 01/17/20 01/18/20 19:00 07:00 Intake Total 1400 ml 2100 ml Output Total 1050 ml Balance 1400 ml 1050 ml Intake Oral 1400 ml 2100 ml Output Urine Total 1050 ml # Voids 6 8 General Appearance: no acute distress, cachetic HEENT: normocephalic, atraumatic Respiratory: chest wall non-tender, decreased breath sounds, expiratory wheezing - few posterior exp wheezes Cardiovascular: normal peripheral pulses, tachycardia - low tachy Abdomen: normal bowel sounds, soft, non tender Extremities: no edema, pedal pulses normal Skin: no rash Neurologic: service counselor II-XII grossly normal, alert, oriented x 3, responsive - anxious Musculoskeletal: normal muscle bulk Microbiology Date/Time Source Procedure Growth Status 01/16/20 13:49 Nasopharynx Coronavirus COVID-19 PCR ([facility]) - Final Complete Current Medications Medications (Trade) Dose Ordered Sig/Aguila Route PRN Reason Start Time Stop Time Status Last Admin Dose Admin Acetaminophen/ Hydrocodone Bitart ([place] 5/325) 1 tab Q6H PRN ORAL For Pain 01/16/20 16:15 01/22/20 10:14 Albuterol Sulfate (Proventil MDI) 2 puff Q1H PRN INH Shortness of Breath 01/17/20 13:30 04/16/20 13:29 Amlodipine Besylate (Norvasc) 10 mg DAILY ORAL 01/17/20 09:00 02/14/20 08:59 01/18/20 08:16 Aspirin (ASA) 81 mg DAILY ORAL 01/17/20 09:00 02/29/20 08:59 01/18/20 08:16 Clonidine HCl (Catapres Tab) 0.1 mg EVERY 8 HOURS ORAL 01/16/20 22:00 04/14/20 08:29 01/18/20 05:47 Dextrose (Dextrose 50%) 25 ml Q30M PRN IV Hypoglycemia 01/16/20 16:30 04/13/20 08:59 Dextrose (Dextrose 50%) 50 ml Q30M PRN IV Hypoglycemia 01/16/20 16:30 04/13/20 08:59 Furosemide (Lasix) 20 mg DAILY ORAL 01/17/20 09:00 02/14/20 08:59 01/17/20 10:02 Heparin Sodium (Porcine) (Heparin 5000 units/ml) 5,000 units EVERY 12 HOURS SUBQ 01/16/20 21:00 02/28/20 20:59 01/18/20 08:16 Lorazepam (Ativan 2mg/ml 1ml) 0.5 mg Q4H PRN IV For Anxiety 01/16/20 17:00 01/21/20 08:59 Methylprednisolone Sodium Succinate (Solu-MEDROL) 40 mg DAILY IVP 01/18/20 09:00 04/15/20 17:59 Nitroglycerin (Ntg) 0.4 mg Q5M X 3 DOSES PRN SL Prn Chest Pain 01/16/20 16:15 02/13/20 08:59 Ondansetron HCl (Zofran) 4 mg Q6H PRN IVP Nausea & Vomiting 01/16/20 16:15 02/13/20 16:14 Pantoprazole (Protonix) 40 mg DAILY ORAL 01/17/20 09:00 02/14/20 08:59 01/18/20 08:16 Promethazine HCl/ Codeine (Phenergan with Codeine) 5 ml Q6H PRN ORAL cough 01/16/20 16:15 02/13/20 16:14 Temazepam (Restoril) 15 mg HSPRN PRN ORAL Insomnia 01/16/20 16:15 01/23/20 16:14 Theophylline (Rigoberto-Dur) 100 mg EVERY 12 HOURS ORAL 01/16/20 21:00 04/13/20 10:29 01/18/20 08:16 Assessment/Plan Problems: (1) ACS (acute coronary syndrome) (2) Acute exacerbation of chronic obstructive airways disease (3) Emphysema (4) History of cocaine abuse (5) DJD (degenerative joint disease) (6) History of CVA (cerebrovascular accident) (7) Chronic back pain Assessment/Plan increase the frequency of Albuterol. Pt is still short of breath titrate fio2 to sat of 92 pain management check sputum watch BP on Lasix 20 PO change to prednisone daily dvt prophylaxis. Farhan Ortega MD Jan 18, 2020 12:37
[2020-01-18] MEDS ORDERED: NORVASC10 MG ORAL (12:40)
[2020-01-18] MEDS ORDERED: PROVENTIL HFA6.7 G1 INH (12:40)
[2020-01-18] MEDS ORDERED: NORCO 5-325 TA1 EAC1 ORAL (12:40)
[2020-01-18] MEDS ORDERED: FUROSEMIDE20 M1 ORAL (12:40)
--- NOTE | 2020-01-18 13:43 | Consultation ---
History of Present Illness General Date patient seen: Jan 18, 2020 Present Illness HPI 79 y/o M with hx of COPD, homelessness (lives in his car), HTN, personality disorder, peripheral neuropathy, insomnia, OA, DJD, HLD, dCHF, chronic back pain , CVA, cocaine abuse, ETOH abuse, smoker presented to ED on 01/13 with recurrent bouts of chest pain; described as knife cutting through that lasted for about 1 hr. He took a nitroglycerin and pain didnt go away until 1hr later. Also endorsed SOB, orthopnea. He used cocaine. Of note, patient was recently admitted here from 12/29-01/11 for SOB, cough and hypoxia. Was evaluated for COVID x1 and neg. Though to have COPD exacebation Allergies: Coded Allergies: No Known Allergies (Unverified , 08/14/19) Medication History No Active Prescriptions or Reported Meds Patient History Healthcare decision maker SELF RESPONSIBLE Resuscitation status Advanced Directive on File Patient History Narrative Pmhx: as above Shx: Alcohol abuse. Substance abuse, cocaine. The patient is homeless. Fhx: non contributory Review of Systems All Other Systems: negative except mentioned in HPI Physical Exam Physical Exam Narrative GENERAL: The patient is awake and responsive, in no acute distress, cachectic. HEAD AND NECK: Pupils are reactive to light. Extraocular movements intact. Neck was supple. No JVD. LUNGS: The patient has rhonchi on the left side greater than the right. HEART: S1, S2. Tachycardic. No murmurs or gallops. Distant heart sounds. ABDOMEN: Soft, nondistended, nontender. Mildly obese. EXTREMITIES: The patient has bilateral lower extremity +1 edema. Last 24 Hour Vital Signs Date Time Temp Pulse Resp B/P (MAP) Pulse Ox O2 Delivery O2 Flow Rate FiO2 01/18/20 11:48 98.2 85 20 132/89 (103) 96 01/18/20 09:00 Nasal Cannula 2.0 Room Air 01/18/20 08:16 87 138/92 01/18/20 08:11 97.8 87 20 138/92 (107) 95 01/18/20 05:47 142/75 01/18/20 04:00 97.7 95 17 142/75 (97) 96 01/18/20 00:00 97.7 96 20 140/79 (99) 96 01/17/20 21:53 146/77 01/17/20 21:00 Room Air Room Air 01/17/20 20:00 97.9 101 20 146/77 (100) 96 01/17/20 16:00 97.7 95 20 127/79 (95) 98 01/17/20 14:00 116/65 Intake and Output 01/17/20 01/18/20 19:00 07:00 Intake Total 1400 ml 2100 ml Output Total 1050 ml Balance 1400 ml 1050 ml Intake Oral 1400 ml 2100 ml Output Urine Total 1050 ml # Voids 6 8 Height (Feet): 6 Height (Inches): 2.00 Weight (Pounds): 186 Medications Current Medications Medications (Trade) Dose Ordered Sig/Aguila Route PRN Reason Start Time Stop Time Status Last Admin Dose Admin Acetaminophen/ Hydrocodone Bitart ([place] 5/325) 1 tab Q6H PRN ORAL For Pain 01/16/20 16:15 01/22/20 10:14 Albuterol Sulfate (Proventil MDI) 2 puff Q1H PRN INH Shortness of Breath 01/17/20 13:30 04/16/20 13:29 Amlodipine Besylate (Norvasc) 10 mg DAILY ORAL 01/17/20 09:00 02/14/20 08:59 01/18/20 08:16 Aspirin (ASA) 81 mg DAILY ORAL 01/17/20 09:00 02/29/20 08:59 01/18/20 08:16 Clonidine HCl (Catapres Tab) 0.1 mg EVERY 8 HOURS ORAL 01/16/20 22:00 04/14/20 08:29 01/18/20 05:47 Dextrose (Dextrose 50%) 25 ml Q30M PRN IV Hypoglycemia 01/16/20 16:30 04/13/20 08:59 Dextrose (Dextrose 50%) 50 ml Q30M PRN IV Hypoglycemia 01/16/20 16:30 04/13/20 08:59 Furosemide (Lasix) 20 mg DAILY ORAL 01/17/20 09:00 02/14/20 08:59 01/17/20 10:02 Heparin Sodium (Porcine) (Heparin 5000 units/ml) 5,000 units EVERY 12 HOURS SUBQ 01/16/20 21:00 02/28/20 20:59 01/18/20 08:16 Lorazepam (Ativan 2mg/ml 1ml) 0.5 mg Q4H PRN IV For Anxiety 01/16/20 17:00 01/21/20 08:59 Nitroglycerin (Ntg) 0.4 mg Q5M X 3 DOSES PRN SL Prn Chest Pain 01/16/20 16:15 02/13/20 08:59 Ondansetron HCl (Zofran) 4 mg Q6H PRN IVP Nausea & Vomiting 01/16/20 16:15 02/13/20 16:14 Pantoprazole (Protonix) 40 mg DAILY ORAL 01/17/20 09:00 02/14/20 08:59 01/18/20 08:16 Prednisone (predniSONE) 20 mg DAILY ORAL 01/19/20 09:00 02/18/20 08:59 Promethazine HCl/ Codeine (Phenergan with Codeine) 5 ml Q6H PRN ORAL cough 01/16/20 16:15 02/13/20 16:14 Temazepam (Restoril) 15 mg HSPRN PRN ORAL Insomnia 01/16/20 16:15 01/23/20 16:14 Theophylline (Rigoberto-Dur) 100 mg EVERY 12 HOURS ORAL 01/16/20 21:00 04/13/20 10:29 01/18/20 08:16 Assessment/Plan Assessment/Plan: Abx: None Assessment: COVID neg x1 -01/15 SARS-COV2 pCR neg -previously neg 12/29 (SARS-COV2 pCR) Chest pain- related to cocaine use Afebrile No leukocytosis Recent Acute COPD exacerbation- r/o pneumonia COPD homelessness (lives in his car) -01/04/20 HIV ab sc, RPR, acute hep panel neg HTN OA DJD HLD chronic back pain CVA smoker cocaine and THC use personality disorder peripheral neuropathy insomnia dCHF ETOH abuse Plan: -Continue to monitor off abx -01/03 SP Azithromycin #5 -01/02 SP Ceftriaxone #4 -12/31/19 SP ZOsyn #2 -f/u cx -Monitor CBC/CMP, temperatures -CXR -COVID neg x1; will remain on isolation pending CXR Thank you for this consultation. Will continue to follow along with you. Discussed with Isabel Gutierrez M.D. Jan 18, 2020 13:43
--- NOTE | 2020-01-18 15:05 | Cardiology Progress Note ---
Assessment/Plan Assessment/Plan 1. Atypical chest pain. 2. COPD. 3. Emphysema. 4. Tobacco dependence. 5. History of cocaine abuse. refused blood test for the past few days last ekg form 01/13 is in covid isolation again , originla neg at [facility] showed normal lv function an ef diuretic ordred by dr ballesteros but pt refused refused iv and refused iv solumedrol Subjective Respiratory: Reports: shortness of breath Subjective per rn: PT AXOX4, REFUSING LAB DRAWS. PT REFUSED LASIX AND IV SOLU-MEDROL. PT STATES THE LASIX MAKES HIM URINATE TOO MUCH. RN EDUCATED PT THAT SIDE EFFECT IS INCREASE IN URINATION BECAUSE IT IS GETTING RID OF EXTRA FLUID IN THE BODY. PT CONTINUED TO REFUSE, YELLING "IT MAKES ME PEE TOO MUCH! I DON'T WANT IT!". PT REFUSING IV ACCESS. RN EDUCATED PT IV ACCESS IS NECESSARY IN CASE OF EMERGENCY AND FOR SOLU-MEDROL TO DECREASE INFLAMMATION OF LUNGS. PT REFUSED, STATING "I GOT A BUBBLE ON MY LAST ONE! I TOLD YOU NO ONE'S GONNA PUT A NEW ONE!". PT URINATES IN URINAL AND AMBULATES TO BATHROOM. IN NO APPARENT DISTRESS AT THIS TIME. PT ABLE TO DEMONSTRATE HOW TO USE CALL LIGHT FOR ASSISTANCE. PT WITH SOB WITH EXERTION AND 2L NC. WILL CONTINUE TO MONITOR. Objective Last 24 Hour Vital Signs Date Time Temp Pulse Resp B/P (MAP) Pulse Ox O2 Delivery O2 Flow Rate FiO2 01/18/20 13:34 132/89 01/18/20 11:48 98.2 85 20 132/89 (103) 96 01/18/20 09:00 Nasal Cannula 2.0 Room Air 01/18/20 08:16 87 138/92 01/18/20 08:11 97.8 87 20 138/92 (107) 95 01/18/20 05:47 142/75 01/18/20 04:00 97.7 95 17 142/75 (97) 96 01/18/20 00:00 97.7 96 20 140/79 (99) 96 01/17/20 21:53 146/77 01/17/20 21:00 Room Air Room Air 01/17/20 20:00 97.9 101 20 146/77 (100) 96 01/17/20 16:00 97.7 95 20 127/79 (95) 98 General Appearance: no apparent distress Intake and Output 01/17/20 01/18/20 19:00 07:00 Intake Total 1400 ml 2100 ml Output Total 1050 ml Balance 1400 ml 1050 ml Intake Oral 1400 ml 2100 ml Output Urine Total 1050 ml # Voids 6 8 Microbiology Date/Time Source Procedure Growth Status 01/16/20 13:49 Nasopharynx Coronavirus COVID-19 PCR ([facility]) - Final Complete Taqueria Covarrubias MD Jan 18, 2020 15:05
[2020-01-18 15:50] VITALS: BP 129/75
--- NOTE | 2020-01-18 15:51 | NUR ---
NURSE NOTES: PT REFUSED TEMPERATURE FOR 1600HR VITAL SIGNS.
--- NOTE | 2020-01-18 15:52 | Internal Med Progress Note ---
Subjective Date of Service: Jan 18, 2020 Physician Name Kyrie Connell Attending Physician Ishmael Crowley MD Current Medications Medications (Trade) Dose Ordered Sig/Aguila Route PRN Reason Start Time Stop Time Status Last Admin Dose Admin Acetaminophen/ Hydrocodone Bitart ([place] 5/325) 1 tab Q6H PRN ORAL For Pain 01/16/20 16:15 01/22/20 10:14 Albuterol Sulfate (Proventil MDI) 2 puff Q1H PRN INH Shortness of Breath 01/17/20 13:30 04/16/20 13:29 Amlodipine Besylate (Norvasc) 10 mg DAILY ORAL 01/17/20 09:00 02/14/20 08:59 01/18/20 08:16 Aspirin (ASA) 81 mg DAILY ORAL 01/17/20 09:00 02/29/20 08:59 01/18/20 08:16 Clonidine HCl (Catapres Tab) 0.1 mg EVERY 8 HOURS ORAL 01/16/20 22:00 04/14/20 08:29 01/18/20 13:34 Dextrose (Dextrose 50%) 25 ml Q30M PRN IV Hypoglycemia 01/16/20 16:30 04/13/20 08:59 Dextrose (Dextrose 50%) 50 ml Q30M PRN IV Hypoglycemia 01/16/20 16:30 04/13/20 08:59 Furosemide (Lasix) 20 mg DAILY ORAL 01/17/20 09:00 02/14/20 08:59 01/17/20 10:02 Heparin Sodium (Porcine) (Heparin 5000 units/ml) 5,000 units EVERY 12 HOURS SUBQ 01/16/20 21:00 02/28/20 20:59 01/18/20 08:16 Lorazepam (Ativan 2mg/ml 1ml) 0.5 mg Q4H PRN IV For Anxiety 01/16/20 17:00 01/21/20 08:59 Nitroglycerin (Ntg) 0.4 mg Q5M X 3 DOSES PRN SL Prn Chest Pain 01/16/20 16:15 02/13/20 08:59 Ondansetron HCl (Zofran) 4 mg Q6H PRN IVP Nausea & Vomiting 01/16/20 16:15 02/13/20 16:14 Pantoprazole (Protonix) 40 mg DAILY ORAL 01/17/20 09:00 8/3/20 08:59 01/18/20 08:16 Prednisone (predniSONE) 20 mg DAILY ORAL 01/19/20 09:00 02/18/20 08:59 Promethazine HCl/ Codeine (Phenergan with Codeine) 5 ml Q6H PRN ORAL cough 01/16/20 16:15 02/13/20 16:14 Temazepam (Restoril) 15 mg HSPRN PRN ORAL Insomnia 01/16/20 16:15 01/23/20 16:14 Theophylline (Rigoberto-Dur) 100 mg EVERY 12 HOURS ORAL 01/16/20 21:00 04/13/20 10:29 01/18/20 08:16 Allergies: Coded Allergies: No Known Allergies (Unverified , 08/14/19) ROS Limited/Unobtainable: No Constitutional: Reports: no symptoms HEENT: Reports: no symptoms Cardiovascular: Reports: no symptoms Respiratory: Reports: shortness of breath Gastrointestinal/Abdominal: Reports: no symptoms Genitourinary: Reports: no symptoms Neurologic/Psychiatric: Reports: no symptoms Subjective 79 YO M admitted with chest pain. Now COPD exacerbation. Cover for Int Med-Dr Crowley Objective Last Vital Signs Date Time Temp Pulse Resp B/P (MAP) Pulse Ox O2 Delivery O2 Flow Rate FiO2 01/18/20 13:34 132/89 01/18/20 11:48 98.2 85 20 96 01/18/20 09:00 Nasal Cannula 2.0 Room Air 01/14/20 21:50 21 Microbiology Date/Time Source Procedure Growth Status 01/16/20 13:49 Nasopharynx Coronavirus COVID-19 PCR ([facility]) - Final Complete Intake and Output 01/17/20 01/18/20 19:00 07:00 Intake Total 1400 ml 2100 ml Output Total 1050 ml Balance 1400 ml 1050 ml Intake Oral 1400 ml 2100 ml Output Urine Total 1050 ml # Voids 6 8 Objective PHYSICAL EXAMINATION: GENERAL: The patient is awake and responsive, in no acute distress, cachectic. HEAD AND NECK: Pupils are reactive to light. Extraocular movements intact. Neck was supple. No JVD. LUNGS: The patient has rhonchi on the left side greater than the right. HEART: S1, S2. Tachycardic. No murmurs or gallops. Distant heart sounds. ABDOMEN: Soft, nondistended, nontender. Mildly obese. EXTREMITIES: The patient has bilateral lower extremity +1 edema. RECTAL/GENITOURINARY: Refused and deferred. PSYCHIATRIC: Mood and affect is intact. NEUROLOGIC: Cranial nerves II through XII are grossly intact. The patient is moving all extremities. Gait was not assessed due to the patient's status. Assessment/Plan Assessment/Plan ASSESSMENT: 1. Atypical Chest pain, most likely induced by cocaine. 2. Acute COPD exacerbation. 3. Emphysema, chronic smoker. 4. History of cocaine abuse. 5. Degenerative joint disease of the spine. 6. Prior history of stroke. 7. Lower back pain. 8. History of recent COVID-19 infection; COVID neg 01/16/20 9. Homeless PLAN: 1. Admit the patient to monitored unit. 2. Dr. Taqueria Covarrubias=Cardiology 3. Dr. Farhan Ortega = Pulmonary, Critical Care. Nebulizer treatment. 4. Code Status is Full Code. 5. DVT prophylaxis=heparin subcutaneous. 6. discharge planning Kyrie Connell MD Jan 18, 2020 15:52
--- NOTE | 2020-01-18 16:29 | Diagnostic Imaging Report ---
Indication: Chest pain Technique: One view of the chest Comparison: 01/06/2020 Findings: Lungs and pleural spaces are clear. The heart size is upper limits of normal. The aorta is tortuous and ectatic. Impression: No acute process
--- NOTE | 2020-01-18 17:00 | NUR ---
NURSE NOTES: DR JORGE MADE AWARE OF CXR RESULTS AND RECEIVED ORDER TO DISCONTINUE DROPLET ISOLATION. GHASSAN MADE AWARE.
--- NOTE | 2020-01-18 18:04 | NUR ---
NURSE NOTES: PT CALLED RN TO ROOM AND STATED HE IS HAVING TROUBLE BREATHING. PT WAS OFF HIS NASAL CANNULA. RN RECOMMENDED PT TO DO DEEP BREATHING EXERCISES WITH NASAL CANNULA ON. PT STARTED YELLING AT RN "I DON'T NEED THE OXYGEN! I NEED YOU TO CALL THE DOCTOR!". PT WAS ALERT AND ABLE TO MAKE NEEDS KNOWN. NO SIGNS OF RESPIRATORY DISTRESS WAS NOTED. RN EDUCATED PT THAT NASAL CANNULA WILL HELP DELIVER OXYGEN IF PT IS HAVING TROUBLE BREATHING. PT CONTINUED TO ARGUE WITH RN. RN TOOK PT'S V/S. BP 144/80, PULSE 94, AND WHEN PT AGREED TO PUT ON NASAL CANNULA 2L, OXYGEN SATURATION WAS AT 99%. PT CONTINUED TO STATE HE WAS STILL HAVING TROUBLE BREATHING. RN EDUCATED PT THERE IS ALBUTEROL INHALER AVAILABLE. PT REFUSED TO TAKE ALBUTEROL AND REQUESTED RN TO CALL DR HERNANDEZ FOR BREATHING TREATMENTS. PT IS STABLE AND IN NO APPARENT DISTRESS AT THIS TIME. RN LEFT MESSAGE FOR DR HERNANDEZ. RN EDUCATED PT TO KEEP NASAL CANNULA ON TO PREVENT SOB/DISTRESS.
--- NOTE | 2020-01-18 18:33 | NUR ---
NURSE NOTES: RECEIVED TELEPHONE ORDER FOR DUONEB HHN Q4H PRN SOB. ORDER ENTERED.
--- NOTE | 2020-01-18 18:41 | NUR ---
NURSE NOTES: RN MADE PT AWARE OF NEW ORDER FOR DUONEB HHN. PT IS RESTING IN BED WITHOUT NASAL CANNULA. PT IN NO APPARENT DISTRESS. NO SOB OR RESPIRATORY DISTRESS NOTED. RN EDUCATED PT TO KEEP NASAL CANNULA ON. PT APPLIED NASAL CANNULA ON WITH RN'S EDUCATION.
--- NOTE | 2020-01-18 19:15 | NUR ---
NURSE NOTES: Received report from Bentley RN, pt. is in bed, on high fowlers position with ongoing breathing treatment, awake, alert and verbally responsive. Denies any pain at this time. Complained of shortness of breath but explained to him that he is having his breathing treatment ongoing. Bed is in lowest position, alarmed and locked. Will continue to monitor.
[2020-01-18] MEDS: Albuterol/Ipratropium 3ml neb HHN PRN (19:18)
--- NOTE | 2020-01-18 19:24 | NUR ---
HAND-OFF: Report given to Katelyn PINTO RN.
[2020-01-18 20:00] VITALS: BP 128/75
[2020-01-19] VITALS: BP 131/80
--- NOTE | 2020-01-19 01:10 | NUR ---
NURSE NOTES: Pt. was screaming that he is having pain during urination. He described it as intractablem pain when i urinate. Pt. refused to have physical assessment. offered prn meds but refused, he states he has a medicicne for it and that's what he wants. Pt. was previously on Pyridium and thats what he wants. Called Dr. Crowley and made aware, gave order of Pyridium, orders taken and carried out. Gave Pyridium to pt. and he verbalized relief after 30 min. Will continue to monitor.
[2020-01-19] MEDS: Phenazopyridine 200mg tab ORAL SCH ×4 (01:28→17:05)
[2020-01-19 04:00] VITALS: BP 140/54
[2020-01-19] MEDS: Albuterol/Ipratropium 3ml neb HHN PRN (04:37)
--- NOTE | 2020-01-19 07:30 | NUR ---
HAND-OFF: Report given to gloria BOYD.
--- NOTE | 2020-01-19 07:45 | NUR ---
NURSE NOTES: RECEIVED PT A/AOX4, AMBULATES. APPEARED TO BE BELLIGERENT TOWARDS STAFF. CALLED AND GAVE HIS REQUEST FOR OATMEAL AND STILL SCREAMING @ THE STAFF. NO IV ACCESS NOTED. MD AWARE PER PREVIOUS RN REPORT. PATIENT REFUSED FOR IV REINSERTION. EXPLAINED THE INDICATIONS FOR HAVING IV ACCESS. PT URINATES IN URINAL AND AMBULATES TO BATHROOM. NO APPARENT DISTRESS AT THIS TIME. KEPT BED IN THE LOWEST POSITION FOR SAFETY REASONS. USE CALL LIGHT FOR ASSISTANCE. SIDERAILS ARE UPX2. ENCOURAGED TO ELEVATED BLE TO REDUCE EDEMA. TOLERATED FOOD INTAKE WELL. BED BRAKES ENGAGED AND BED LOCK @ ALL TIMES. WILL CONT TO MONITOR.
[2020-01-19 08:00] VITALS: BP 122/77
--- NOTE | 2020-01-19 08:15 | NUR ---
RESPIRATORY NOTE: Patient called for breathing. RT arrived to administer the treatment however patient refused. hat brusher machine notified.
[2020-01-19] MEDS: Theophylline ER 100mg ORAL SCH (08:52)
[2020-01-19] MEDS: Aspirin Baby 81mg ORAL SCH (08:53)
[2020-01-19] MEDS: Heparin 5000 units/ml inj SUBQ SCH (08:58)
--- NOTE | 2020-01-19 09:56 | Infectious Diseases Prog Note ---
Assessment/Plan Abx: None Assessment: COVID neg x1 -01/15 SARS-COV2 pCR neg -previously neg 12/29 (SARS-COV2 pCR) Chest pain- related to cocaine use Afebrile No leukocytosis Recent Acute COPD exacerbation- -01/17 CXR: no acute disease COPD homelessness (lives in his car) -01/04/20 HIV ab sc, RPR, acute hep panel neg HTN OA DJD HLD chronic back pain CVA smoker cocaine and THC use personality disorder peripheral neuropathy insomnia dCHF ETOH abuse Plan: -Continue to monitor off abx -01/03 SP Azithromycin #5 -01/02 SP Ceftriaxone #4 -12/31/19 SP ZOsyn #2 -f/u cx -Monitor CBC/CMP, temperatures -COVID neg x1; ok to dc isolation (afebrile, no pneumonia) Thank you for this consultation. Will continue to follow along with you. Discussed with RN. Subjective Allergies: Coded Allergies: No Known Allergies (Unverified , 08/14/19) Objective Last 24 Hour Vital Signs Date Time Temp Pulse Resp B/P (MAP) Pulse Ox O2 Delivery O2 Flow Rate FiO2 01/19/20 08:53 88 122/77 01/19/20 08:00 97.5 88 19 122/77 (92) 100 01/19/20 06:00 0/0 01/19/20 04:37 86 18 98 Nasal Cannula 2.0 28 84 18 96 01/19/20 04:00 96.4 77 20 140/54 (82) 96 01/19/20 00:00 97.2 96 20 131/80 (97) 96 01/18/20 21:54 132/71 01/18/20 21:00 Nasal Cannula 2.0 Room Air 01/18/20 20:00 97.5 94 22 128/75 (92) 95 01/18/20 19:18 91 20 99 Nasal Cannula 2.0 28 86 20 95 01/18/20 15:50 97 20 129/75 (93) 94 01/18/20 13:34 132/89 01/18/20 11:48 98.2 85 20 132/89 (103) 96 Height (Feet): 6 Height (Inches): 2.00 Weight (Pounds): 193 GENERAL: The patient is awake and responsive, in no acute distress, cachectic. HEAD AND NECK: Pupils are reactive to light. Extraocular movements intact. Neck was supple. No JVD. LUNGS: The patient has rhonchi on the left side greater than the right. HEART: S1, S2. Tachycardic. No murmurs or gallops. Distant heart sounds. ABDOMEN: Soft, nondistended, nontender. Mildly obese. EXTREMITIES: The patient has bilateral lower extremity +1 edema. Microbiology Date/Time Source Procedure Growth Status 01/16/20 13:49 Nasopharynx Coronavirus COVID-19 PCR ([facility]) - Final Complete Current Medications Medications (Trade) Dose Ordered Sig/Aguila Route PRN Reason Start Time Stop Time Status Last Admin Dose Admin Acetaminophen/ Hydrocodone Bitart ([place] 5/325) 1 tab Q6H PRN ORAL For Pain 01/16/20 16:15 01/22/20 10:14 Albuterol/ Ipratropium (Albuterol/ Ipratropium) 3 ml Q4H PRN HHN Shortness of Breath 01/18/20 18:45 01/23/20 18:44 01/19/20 04:37 Amlodipine Besylate (Norvasc) 10 mg DAILY ORAL 01/17/20 09:00 02/14/20 08:59 01/19/20 08:53 Aspirin (ASA) 81 mg DAILY ORAL 01/17/20 09:00 02/29/20 08:59 01/19/20 08:53 Clonidine HCl (Catapres Tab) 0.1 mg EVERY 8 HOURS ORAL 01/16/20 22:00 04/14/20 08:29 01/18/20 21:54 Dextrose (Dextrose 50%) 25 ml Q30M PRN IV Hypoglycemia 01/16/20 16:30 04/13/20 08:59 Dextrose (Dextrose 50%) 50 ml Q30M PRN IV Hypoglycemia 01/16/20 16:30 04/13/20 08:59 Furosemide (Lasix) 20 mg DAILY ORAL 01/17/20 09:00 02/14/20 08:59 01/19/20 08:53 Heparin Sodium (Porcine) (Heparin 5000 units/ml) 5,000 units EVERY 12 HOURS SUBQ 01/16/20 21:00 02/28/20 20:59 01/19/20 08:58 Lorazepam (Ativan 2mg/ml 1ml) 0.5 mg Q4H PRN IV For Anxiety 01/16/20 17:00 01/21/20 08:59 Nitroglycerin (Ntg) 0.4 mg Q5M X 3 DOSES PRN SL Prn Chest Pain 01/16/20 16:15 02/13/20 08:59 Ondansetron HCl (Zofran) 4 mg Q6H PRN IVP Nausea & Vomiting 01/16/20 16:15 02/13/20 16:14 Pantoprazole (Protonix) 40 mg DAILY ORAL 01/17/20 09:00 02/14/20 08:59 01/19/20 08:52 Phenazopyridine HCl (Pyridium) 200 mg THREE TIMES A DAY ORAL 01/19/20 01:30 04/18/20 01:29 01/19/20 08:52 Prednisone (predniSONE) 20 mg DAILY ORAL 01/19/20 09:00 02/18/20 08:59 01/19/20 08:52 Promethazine HCl/ Codeine (Phenergan with Codeine) 5 ml Q6H PRN ORAL cough 01/16/20 16:15 02/13/20 16:14 Temazepam (Restoril) 15 mg HSPRN PRN ORAL Insomnia 01/16/20 16:15 01/23/20 16:14 Theophylline (Rigoberto-Dur) 100 mg EVERY 12 HOURS ORAL 01/16/20 21:00 04/13/20 10:29 01/19/20 08:52 Isabel Schultz M.D. Jan 19, 2020 09:56
--- NOTE | 2020-01-19 11:12 | NUR ---
NURSE NOTES: Patient refused lab draw per Valerie manager labor relations, stating he was being discharged.
--- NOTE | 2020-01-19 11:28 | NUR ---
CASE MANAGEMENT:REVIEW SI; ACS. COPD W/ACUTE EXACERBATION. EMPHYSEMA. 97.5 88 20 140/54 96% ON RA IS;PREDNISONE PO PYRIDIUM PO DUO NEB HHS NORVASC PO ASA PO LASIX PO HEPARIN SUBQ CLONIDINE PO PROTONIX PO MED SURG STATUS DCP;PATIENT IS HOMELESS
--- NOTE | 2020-01-19 11:53 | NUR ---
NURSE NOTES: PATIENT IS WILLING TO SPEAK WITH MANAGER OF FINANCE FOR [facility]. CALLED [phone], KEISHA EISENBERG AND LEFT YUNIOR. WILL CONT TO MONITOR.
--- NOTE | 2020-01-19 11:57 | NUR ---
NURSE NOTES: LEFT VOICEMESSAGE TO SW. MIKE FOR CUSTODIAL PLACEMENT. WILL CONT TO MONITOR.
[2020-01-19 12:01] VITALS: BP 151/73
--- NOTE | 2020-01-19 12:49 | Pulmonology Progress Note ---
Subjective ROS Limited/Unobtainable: No Constitutional: Reports: no symptoms HEENT: Repors: no symptoms Respiratory: Reports: no symptoms Allergies: Coded Allergies: No Known Allergies (Unverified , 08/14/19) Objective Last 24 Hour Vital Signs Date Time Temp Pulse Resp B/P (MAP) Pulse Ox O2 Delivery O2 Flow Rate FiO2 01/19/20 12:18 97.0 01/19/20 12:01 97.0 105 20 151/73 (99) 100 01/19/20 09:00 Nasal Cannula 2.0 Room Air 01/19/20 08:53 88 122/77 01/19/20 08:00 97.5 88 19 122/77 (92) 100 01/19/20 06:00 0/0 01/19/20 04:37 86 18 98 Nasal Cannula 2.0 28 84 18 96 01/19/20 04:00 96.4 77 20 140/54 (82) 96 01/19/20 00:00 97.2 96 20 131/80 (97) 96 01/18/20 21:54 132/71 01/18/20 21:00 Nasal Cannula 2.0 Room Air 01/18/20 20:00 97.5 94 22 128/75 (92) 95 01/18/20 19:18 91 20 99 Nasal Cannula 2.0 28 86 20 95 01/18/20 15:50 97 20 129/75 (93) 94 01/18/20 13:34 132/89 Intake and Output 01/18/20 01/19/20 19:00 07:00 Intake Total 1260 ml 1200 ml Balance 1260 ml 1200 ml Intake Oral 1260 ml Other 1200 ml # Voids 4 4 # Bowel Movements 1 General Appearance: no acute distress, cachetic HEENT: normocephalic, atraumatic Respiratory: chest wall non-tender, decreased breath sounds, expiratory wheezing - few posterior exp wheezes Cardiovascular: normal peripheral pulses, tachycardia - low tachy Abdomen: normal bowel sounds, soft, non tender Extremities: no edema, pedal pulses normal Skin: no rash Neurologic: user experience architect II-XII grossly normal, alert, oriented x 3, responsive - anxious Musculoskeletal: normal muscle bulk Microbiology Date/Time Source Procedure Growth Status 01/16/20 13:49 Nasopharynx Coronavirus COVID-19 PCR ([facility]) - Final Complete Current Medications Medications (Trade) Dose Ordered Sig/Aguila Route PRN Reason Start Time Stop Time Status Last Admin Dose Admin Acetaminophen/ Hydrocodone Bitart ([place] 5/325) 1 tab Q6H PRN ORAL For Pain 01/16/20 16:15 01/22/20 10:14 01/19/20 11:48 Albuterol/ Ipratropium (Albuterol/ Ipratropium) 3 ml Q4H PRN HHN Shortness of Breath 01/18/20 18:45 01/23/20 18:44 01/19/20 04:37 Amlodipine Besylate (Norvasc) 10 mg DAILY ORAL 01/17/20 09:00 02/14/20 08:59 01/19/20 08:53 Aspirin (ASA) 81 mg DAILY ORAL 01/17/20 09:00 02/29/20 08:59 01/19/20 08:53 Clonidine HCl (Catapres Tab) 0.1 mg EVERY 8 HOURS ORAL 01/16/20 22:00 04/14/20 08:29 01/18/20 21:54 Dextrose (Dextrose 50%) 25 ml Q30M PRN IV Hypoglycemia 01/16/20 16:30 04/13/20 08:59 Dextrose (Dextrose 50%) 50 ml Q30M PRN IV Hypoglycemia 01/16/20 16:30 04/13/20 08:59 Furosemide (Lasix) 20 mg DAILY ORAL 01/17/20 09:00 02/14/20 08:59 01/19/20 08:53 Heparin Sodium (Porcine) (Heparin 5000 units/ml) 5,000 units EVERY 12 HOURS SUBQ 01/16/20 21:00 02/28/20 20:59 01/19/20 08:58 Lorazepam (Ativan 2mg/ml 1ml) 0.5 mg Q4H PRN IV For Anxiety 01/16/20 17:00 01/21/20 08:59 Nitroglycerin (Ntg) 0.4 mg Q5M X 3 DOSES PRN SL Prn Chest Pain 01/16/20 16:15 02/13/20 08:59 Ondansetron HCl (Zofran) 4 mg Q6H PRN IVP Nausea & Vomiting 01/16/20 16:15 02/13/20 16:14 Pantoprazole (Protonix) 40 mg DAILY ORAL 01/17/20 09:00 02/14/20 08:59 01/19/20 08:52 Phenazopyridine HCl (Pyridium) 200 mg THREE TIMES A DAY ORAL 01/19/20 01:30 04/18/20 01:29 01/19/20 08:52 Prednisone (predniSONE) 20 mg DAILY ORAL 01/19/20 09:00 02/18/20 08:59 01/19/20 08:52 Promethazine HCl/ Codeine (Phenergan with Codeine) 5 ml Q6H PRN ORAL cough 01/16/20 16:15 02/13/20 16:14 Temazepam (Restoril) 15 mg HSPRN PRN ORAL Insomnia 01/16/20 16:15 01/23/20 16:14 Theophylline (Rigoberto-Dur) 100 mg EVERY 12 HOURS ORAL 01/16/20 21:00 04/13/20 10:29 01/19/20 08:52 Assessment/Plan Problems: (1) ACS (acute coronary syndrome) (2) Acute exacerbation of chronic obstructive airways disease (3) Emphysema (4) History of cocaine abuse (5) DJD (degenerative joint disease) (6) History of CVA (cerebrovascular accident) (7) Chronic back pain Assessment/Plan Pt is still short of breath episodes of shortness of breath and chest pain, unclear if malingering?? titrate fio2 to sat of 92 pain management check sputum watch BP on Lasix 20 PO change to prednisone daily dvt prophylaxis. pt agreed to go to a long-term or assisted living Farhan Ortega MD Jan 19, 2020 12:49
--- NOTE | 2020-01-19 13:14 | NUR ---
PAYROLL AND BENEFITS ASSISTANT NOTE SW met w/ pt for DC planning. Pt presents as labile and uncooperative. Pt reports he does not want to go to a penitentiary. PT declined to receive the community resource packet. SW offered a placement assistance again. However, pt refused. Pt expressed that he wants to return to [address], [place] (address on the facesheet). SW asked for contact number to verify the address. Pt became aggressive and yelled at this . Pt did not clarify what address this was. PT previously mentioned that such address was his friend's house. PT was offered a tap card. However, pt declined and requested for a taxi ride. SW discussed the case w/ wire charger and nursing display fabrication supervisor. Pt was dc'ed to such address via taxi. The team accepted pt's request and will provide taxi voucher.
--- NOTE | 2020-01-19 13:45 | NUR ---
NURSE NOTES: PATIENT ARGUED WITH AGGRESSIVENESS REGARDING THE HHN TO THE RT, ALBERT. HE WOULD ASK AND REFUSED @ THE SAME TIME. CLAIMING THAT IT WAS NOT A HHN THAT WAS ORDERED. EXPLAINED TO THE PATIENT AND STARTED TO BECOME ANGRY. WILL CONT TO MONITOR.
[2020-01-19 16:05] VITALS: BP 122/75
--- NOTE | 2020-01-19 16:24 | NUR ---
NURSE NOTES: NOTIFIED DR HERNANDEZ REGARDING [facility] UPON DISCHARGE MEDICATIONS WHETHER OR NOT HE PLACED THE NEW MEDS IN TO FIND OUT WHERE THE RX ARE. DR HERNANDEZ REPLIED AND STATED THAT HE DID NOT DO IT AND ALSO DID NOT EXPECT FOR THE PATIENT TO LEAVE TODAY WELL. DR AUSTIN MADE AWARE OF THE DISCHARGE ORDER THAT IS PLACED UNDER HIS NAME. LEXIE GIL. WILL CONT TO MONITOR.
--- NOTE | 2020-01-19 17:07 | NUR ---
NURSE NOTES: SPOKE WITH AD ABOUT WHAT DR HERNANDEZ STATED AND SAID [facility] WAS THE ONE WHO RECEIVED AN ORDER FOR DISCHARGE FROM DR HERNANDEZ. DISCHARGE HOME IS IN PROCESS AND PATIENT PROVIDED AN ADDRESS TO [facility]. [address] [place] [address]. TRANSPORTATION "[facility]" IS PROVIDED. INSTRUCTED PATIENT TO CONTINUE HIS MEDICATIONS FROM HOME SINCE HE WAS JUST DISCHARGED THIS MONTH AND HE AGREED PER AD INSTRUCTIONS BECAUSE I WAS ASKING FOR THE RX SINCE THE [facility] WAS PLACED "NEW MEDICATIONS". PATIENT IS ABLE TO VERBALIZE UNDERSTANDING. PERSONAL BELONGINGS NOTED. NO IV ACCESS NOTED. NO ACUTE RESP DISTRESS NOTED. WILL CONT TO MONITOR.
--- NOTE | 2020-01-19 17:34 | Internal Med Progress Note ---
Subjective Date of Service: Jan 19, 2020 Physician Name Kyrie Connell Attending Physician Ishmael Crowley MD Current Medications Medications (Trade) Dose Ordered Sig/Aguila Route PRN Reason Start Time Stop Time Status Last Admin Dose Admin Acetaminophen/ Hydrocodone Bitart ([place] 5/325) 1 tab Q6H PRN ORAL For Pain 01/16/20 16:15 01/22/20 10:14 01/19/20 11:48 Albuterol/ Ipratropium (Albuterol/ Ipratropium) 3 ml Q4H PRN HHN Shortness of Breath 01/18/20 18:45 01/23/20 18:44 01/19/20 04:37 Amlodipine Besylate (Norvasc) 10 mg DAILY ORAL 01/17/20 09:00 02/14/20 08:59 01/19/20 08:53 Aspirin (ASA) 81 mg DAILY ORAL 01/17/20 09:00 02/29/20 08:59 01/19/20 08:53 Clonidine HCl (Catapres Tab) 0.1 mg EVERY 8 HOURS ORAL 01/16/20 22:00 04/14/20 08:29 01/19/20 13:31 Dextrose (Dextrose 50%) 25 ml Q30M PRN IV Hypoglycemia 01/16/20 16:30 04/13/20 08:59 Dextrose (Dextrose 50%) 50 ml Q30M PRN IV Hypoglycemia 01/16/20 16:30 04/13/20 08:59 Furosemide (Lasix) 20 mg DAILY ORAL 01/17/20 09:00 02/14/20 08:59 01/19/20 08:53 Heparin Sodium (Porcine) (Heparin 5000 units/ml) 5,000 units EVERY 12 HOURS SUBQ 01/16/20 21:00 02/28/20 20:59 01/19/20 08:58 Lorazepam (Ativan 2mg/ml 1ml) 0.5 mg Q4H PRN IV For Anxiety 01/16/20 17:00 01/21/20 08:59 Nitroglycerin (Ntg) 0.4 mg Q5M X 3 DOSES PRN SL Prn Chest Pain 01/16/20 16:15 02/13/20 08:59 Ondansetron HCl (Zofran) 4 mg Q6H PRN IVP Nausea & Vomiting 01/16/20 16:15 02/13/20 16:14 Pantoprazole (Protonix) 40 mg DAILY ORAL 01/17/20 09:00 02/14/20 08:59 01/19/20 08:52 Phenazopyridine HCl (Pyridium) 200 mg THREE TIMES A DAY ORAL 01/19/20 01:30 04/18/20 01:29 01/19/20 17:05 Prednisone (predniSONE) 20 mg DAILY ORAL 01/19/20 09:00 02/18/20 08:59 01/19/20 08:52 Promethazine HCl/ Codeine (Phenergan with Codeine) 5 ml Q6H PRN ORAL cough 01/16/20 16:15 02/13/20 16:14 Temazepam (Restoril) 15 mg HSPRN PRN ORAL Insomnia 01/16/20 16:15 01/23/20 16:14 Theophylline (Rigoberto-Dur) 100 mg EVERY 12 HOURS ORAL 01/16/20 21:00 04/13/20 10:29 01/19/20 08:52 Allergies: Coded Allergies: No Known Allergies (Unverified , 08/14/19) ROS Limited/Unobtainable: No Constitutional: Reports: no symptoms HEENT: Reports: no symptoms Cardiovascular: Reports: no symptoms Respiratory: Reports: no symptoms Gastrointestinal/Abdominal: Reports: no symptoms Genitourinary: Reports: no symptoms Neurologic/Psychiatric: Reports: no symptoms Subjective 79 YO M admitted with chest pain. Now COPD exacerbation. Cover for Int Oliver-Dr Crowley Objective Last Vital Signs Date Time Temp Pulse Resp B/P (MAP) Pulse Ox O2 Delivery O2 Flow Rate FiO2 01/19/20 16:05 97.5 95 19 122/75 (91) 95 01/19/20 09:00 Nasal Cannula 2.0 Room Air 01/19/20 04:37 28 Intake and Output 01/18/20 01/19/20 19:00 07:00 Intake Total 1260 ml 1200 ml Balance 1260 ml 1200 ml Intake Oral 1260 ml Other 1200 ml # Voids 4 4 # Bowel Movements 1 Objective PHYSICAL EXAMINATION: GENERAL: The patient is awake and responsive, in no acute distress, cachectic. HEAD AND NECK: Pupils are reactive to light. Extraocular movements intact. Neck was supple. No JVD. LUNGS: The patient has rhonchi on the left side greater than the right. HEART: S1, S2. Tachycardic. No murmurs or gallops. Distant heart sounds. ABDOMEN: Soft, nondistended, nontender. Mildly obese. EXTREMITIES: The patient has bilateral lower extremity +1 edema. RECTAL/GENITOURINARY: Refused and deferred. PSYCHIATRIC: Mood and affect is intact. NEUROLOGIC: Cranial nerves II through XII are grossly intact. The patient is moving all extremities. Gait was not assessed due to the patient's status. Assessment/Plan Assessment/Plan ASSESSMENT: 1. Atypical Chest pain, most likely induced by cocaine. 2. Acute COPD exacerbation. 3. Emphysema, chronic smoker. 4. History of cocaine abuse. 5. Degenerative joint disease of the spine. 6. Prior history of stroke. 7. Lower back pain. 8. History of recent COVID-19 infection; COVID neg 01/16/20 9. Homeless PLAN: 1. Admit the patient to monitored unit. 2. Dr. Taqueria Covarrubias=Cardiology 3. Dr. Farhan Ortega = Pulmonary, Critical Care. Nebulizer treatment. 4. Code Status is Full Code. 5. DVT prophylaxis=heparin subcutaneous. 6. discharge planning-refused SNF placement; discharge home Kyrie Connell MD Jan 19, 2020 17:34
--- NOTE | 2020-01-19 18:04 | NUR ---
NURSE NOTES: D/C WITH INSTRUCTIONS TO ADDRESS PROVIDED BY PATIENT. DENIES OF PAIN/DISCOMFORT NOTED. NO IV ACCESS. IN STABLE CONDITION. TRANSPORTED VIA TAXI.
--- NOTE | 2020-01-21 12:19 | Discharge Summary ---
Discharge Summary Discharge Summary _ DATE OF ADMISSION: 01/14/2020 DATE OF DISCHARGE: 01/19/2020 DISCHARGED BY: Dr. Crowley REASON FOR ADMISSION: 79 years old male with past medical history significant for COPD, emphysema, tobacco abuse, hypertension, cocaine abuse, chronic back pain, pulmonary nodule , alcohol abuse presented initially to [facility] ED with complaints of chest pain and shortness of breath. Patient had recent admission at [facility] from 12/29 to 01/11. At that time patient reported shortness of breath , subjective fevers. testing for COVID-19 at [facility] was negative. Patient was discharged from [facility] , went home and started to use cocaine . He developed substernal chest pain associated with shortness of breath. Patient subsequently presented to [facility] ED. Shortly after initial evaluation at [facility] , patient was transferred to [facility] due to insurance issues. CONSULTANTS: snow blower Dr. Covarrubias pulmonary Dr. Ortega ID specialist Dr. Schultz [facility] COURSE: Patient admitted to [facility] with chest pain induced by cocaine abuse as well as COPD, emphysema and history of smoking . Patient admitted initially to monitored floor. C Developer and lens dotter closely followed. Supplemental oxygen provided and titrated to keep pulse oximetry above 90%. Pulmonary toilet with MDI Proventil provided. COVID-19 was negative on the prior admission and at that time he declined second testing . Patient remained afebrile in isolation , and at that time isolation was discontinued as per ID specialist recommendation. Patient initially declined testing on this admission , but subsequently was tested. SARS COV 2 by PCR on 01/15 came back not detected. Patient started on IV steroids with gradual tapering. DVT and GI prophylaxis provided. Trial of theophylline instituted. Antitussive provided as needed. X-ray of the ribd was ordered as on previous admission , but patient declined. Patient did not provide us with any sputum specimen. Blood pressure was managed with clonidine and Lasix. Volumes were closely monitored. Renal parameters were closely monitored Patient declined further labs. Patient had prior negative HIV test on 624. Per snow blower chest pain was atypical . Echocardiogram revealed preserved ejection fraction 60% and no evidence of wall motion abnormality. No evidence of left ventricular hypertrophy. Trace mitral regurgitation. Right ventricular systolic pressure of 38 consistent with a mild pulmonary hypertension. Patient at the end declined Solu-Medrol and Lasix. Patient refused IV access and was noncompliant with the treatment. Pulse oximetry remained stable. ID specialist recommended to keep patient off antibiotic and monitor temperature and CBC. Patient prior declined SNF/assisted living placement on multiple occasions. The treating physician and consultants had all assessed and agreed, that patient was medically stable for discharge to an outpatient disposition. FINAL DIAGNOSES: Atypical chest pain, related to cocaine use Acute COPD exacerbation Emphysema History of tobacco abuse Cocaine abuse DJD of spine Hypertension with hypertensive urgency History of CVA History of recent COVID-19 infection Noncompliance with medications and care DISCHARGE MEDICATIONS: See Medication Reconciliation list. DISCHARGE INSTRUCTIONS: Patient was discharged to the outpatient disposition. Follow-up with a primary care provider in 1 week. I have been assigned to dictate discharge summary for this account. I was not involved in the patient's management. Mariana Canada NP Jan 21, 2020 12:19
== END 2020-01-19 18:02 | disposition home or self-care (01) | DRG 191 ==
LOC: 2E 08:33 → 4E 01-16 16:08
DX: J44.1 Chronic obstructive pulmonary disease with (acute) exacerbation (principal); I24.9 Acute ischemic heart disease, unspecified; M19.90 Unspecified osteoarthritis, unspecified site; Z86.73 Personal history of transient ischemic attack (TIA), and cerebral infarction without residual deficits; R07.89 Other chest pain; F14.19 Cocaine abuse with unspecified cocaine-induced disorder; M51.36 Other intervertebral disc degeneration, lumbar region; G62.9 Polyneuropathy, unspecified; I16.0 Hypertensive urgency; Z59.0 Homelessness; I10 Essential (primary) hypertension; F60.9 Personality disorder, unspecified; G47.00 Insomnia, unspecified; Z87.891 Personal history of nicotine dependence; M47.9 Spondylosis, unspecified; M54.5 Low back pain; Z86.19 Personal history of other infectious and parasitic diseases; Z91.19 Patient's noncompliance with other medical treatment and regimen
CPT/HCPCS: 36415; 71045; 80053; 83735; 84484; 85007; 85025; 93005; 93306; 94640; J7620